=== PATIENT | female | born 1945 | race Caucasian/White ===

== ENCOUNTER 2023-01-14 17:15 | Observation (INO) | payer MEDICARE, SELFPAY ==
--- NOTE | ~2023-01-14 | US_ITS ---
EXAMINATION: US venous doppler LE DATE: 01/14/2023 22:43 INDICATION: Bilateral lower limb pain, swelling and erythema TECHNIQUE: Grayscale ultrasound images without and with compression and Doppler ultrasound images of the bilateral lower extremity veins were obtained. COMPARISON: 01/13/2018 FINDINGS: Nonocclusive, noncompressible deep venous thrombosis in the right popliteal vein. The visualized port ions of right common femoral vein, profunda (deep) femoral vein, femoral vein and greater saphenous v ein outflow are patent. The right posterior tibial and peroneal veins at the calf are not diagnostica lly evaluated due to poor visualization related to body habitus. The visualized portions of left common femoral vein, profunda femoral vein, femoral vein, popliteal v ein and greater saphenous vein outflow are patent. The left posterior tibial and peroneal veins and n ot diagnostically evaluated due to poor visualization related to body habitus. IMPRESSION: 1. Noncompressible, nonocclusive deep venous thrombosis in the right popliteal vein. 2. No evident deep venous thrombosis in the left lower limb. Reviewed, dictated and finalized at location A.
--- NOTE | ~2023-01-14 | XR_ITS ---
EXAMINATION: XR chest 2V DATE: 01/14/2023 17:30 INDICATION: Chest pain TECHNIQUE: frontal and lateral views of the chest were obtained. COMPARISON: Chest radiograph dated 01/12/2018 FINDINGS: Mild opacities at the bilateral lung bases and favor atelectasis over pulmonary edema or pneumonia. N o pleural effusion or pneumothorax. The cardiomediastinal silhouette is within normal limits for AP t echnique. Mild thoracic dextrocurvature with mild spondylosis. IMPRESSION: 1. Mild bibasilar opacities and favor atelectasis over pulmonary edema or pneumonia. Reviewed, dictated and finalized at location A. IMPRESSION: 1. Mild bibasilar opacities and favor atelectasis over pulmonary edema or pneum onia.
--- NOTE | ~2023-01-14 | NM_ITS ---
EXAMINATION: NM pulmonary perfusion DATE: 01/15/2023 13:04 INDICATION: Chest pain. Shortness of breath. TECHNIQUE: 5.2 mCi Tc-99m MAA was administered intravenously for perfusion images. Scintigraphic israel ges of the chest were obtained. COMPARISON: Chest 2 views 01/14/2023 FINDINGS: Perfusion images show a small perfusion defect in left upper lobe. IMPRESSION: 1. Pulmonary embolism absent (very low probability). Reviewed, dictated and finalized at location A.
--- NOTE | 2023-01-14 17:15 | ECG_ITS ---
Measurements Intervals [place] Rate: 62 P: 70 DE: 300 QRS: -63 QRSD: 148 T: -11 QT: 412 QTc: 420 Interpretive Statements SINUS RHYTHM WITH FIRST DEGREE AV BLOCK RIGHT BUNDLE BRANCH BLOCK LEFT ANTERIOR FASCICULAR BLOCK BASELINE ARTIFACT- I, II, III, AVR, AVL, AVF ABNORMAL ECG NO PREVIOUS ECG AVAILABLE FOR COMPARISON Electronically Signed On 01-14-2023 20:27:39 CDT by Jason Isbell D.O.
[2023-01-14 17:47] VITALS: BP 143/54; PULSE 63; RESP 20; TEMP 36.9; O2SAT 96
[2023-01-14 18:17] LABS: Basophils Absolute Auto 0.1 K/mm3 (0.0-0.1); Basophils Percent Auto 0.9 % (0.2-1.2); Eosinophils Absolute Auto 0.4 K/mm3 (0-0.3); Hematocrit 43.4 % (37.0-47.0); Hemoglobin 13.7 g/dL (12.0-15.0); Immature Granulocyte Absolute 0.03 K/mm3 (0.00-0.031); Immature Granulocyte Percent A 0.4 % (0-0.5); Lymphocytes Absolute Auto 2.02 K/mm3 (0.9-3.2); Lymphocytes Percent Auto 23.9 % (18.3-44.2); Mean Corpuscular HGB Conc 31.6 g/dl (32-36); Mean Corpuscular Hemoglobin 32.5 pg (26-34); Mean Corpuscular Volume 103.1 fl (80-100); Monocytes Absolute Auto 0.9 K/mm3 (0.1-0.6); Monocytes Percent Auto 10.5 % (2.6-8.5); Neutrophils Percent Auto 59.3 % (45.5-73.1); Platelet Count Result 183 k/mm3 (150-375); Red Blood Count 4.21 M/mm3 (4.2-5.4); Red Cell Distribution Width 13.1 % (11.5-14.5); White Blood Count 8.5 K/mm3 (4.5-10.0)
[2023-01-14 18:27] LABS: Alanine Aminotransferase 22 U/L (6-35); Albumin Level 3.8 g/dL (3.5-5.1); Alkaline Phosphatase 77 U/L (38-126); Anion Gap 7 mmol/L (8-16); Aspartate Amino Transferase 25 U/L (14-36); Bilirubin,Total 0.5 mg/dL (0.2-1.3); Blood Urea Nitrogen 21 mg/dL (7-17); Carbon Dioxide 23 mmol/L (22-30); Chloride 102 mmol/L (98-107); Estimated CRCL calculation 53 ml/min; Estimated Glomerular Filt Rate 60; Glucose 287 mg/dL (65-110); Lipase 45 U/L (23-300); Potassium 4.2 mmol/L (3.4-5.0); Sodium 132 mmol/L (137-145)
[2023-01-14 18:33] LABS: Prothrombin Time 13.2 Seconds (11.1-14.7)
[2023-01-14 18:39] LABS: Troponin I < 0.012 ng/mL (0.000-0.034)
[2023-01-14 21:22] VITALS: BP 146/81; PULSE 69; RESP 18; TEMP 36.4; O2SAT 99
[2023-01-14 21:31] LABS: Troponin I < 0.012 ng/mL (0.000-0.034)
--- NOTE | 2023-01-14 21:51 | ED.CHESTPAIN ---
HPI - Chest Pain General Chief Complaint: Chest Pain <VIRGINIA Merida Last Filed: 01/15/23 02:14> Stated Complaint: chest pain <VIRGINIA Merida Last Filed: 01/15/23 02:14> Time Seen by Provider: 01/14/23 21:32 <VIRGINIA Merida Last Filed: 01/15/23 02:14> Source: patient and old records reviewed <VIRGINIA Merida Last Filed: 01/15/23 02:14> Mode of arrival: ambulatory <VIRGINIA Merida Last Filed: 01/15/23 02:14> Limitations: no limitations <VIRGINIA Merida Last Filed: 01/15/23 02:14> History of Present Illness HPI narrative: Patient is a 77 y/o female who presents to the ED with multiple complaints. Patient is mostly wheelchair-bound. She does not typically ambulate. She reports having pain and swelling in her lower extremities worsening over the past couple of days, as well as redness in her left lower extremity. Denies any wounds. She also reports having intermittent shortness of breath and left-sided chest discomfort under her left breast and extending into her left arm/shoulder over the last several days. She has not tried anything for the pain. She has been noncompliant with her home medications as she reports that she often forgets to take her medicines. Patient lives alone. Her son does live nearby, but patient states he does not help her with her medicines. Patient does have history of DVT. She is supposed to be on Xarelto. She has not been taking this consistently for the last 1 year. Denies any recent fevers, cough, cold symptoms, nausea, vomiting. Denies history of CHF. She is not on any diuretic therapy. <VIRGINIA Merida Last Filed: 01/15/23 02:14> Related Data Allergies/Adverse Reactions: Allergies Allergy/AdvReac Type Severity Reaction Status Date / Time Iodinated Contrast Media Allergy Intermediate Rash Verified 01/15/23 08:52 <VIRGINIA Merida Last Filed: 01/15/23 02:14> Review of Systems Review of Systems: CONSTITUTIONAL: Denies fever, chills, or sweats. CARDIOVASCULAR: See HPI. RESPIRATORY: See HPI. GASTROINTESTINAL: Denies abdominal pain, nausea, vomiting, or diarrhea. GENITOURINARY: Denies dysuria or hematuria. SKIN: See HPI. MUSCULOSKELETAL: See HPI. <Juany Carl PA-C - Last Filed: 01/15/23 02:14> All systems reviewed & are unremarkable except as noted in HPI and below <Juany Carl PA-C - Last Filed: 01/15/23 02:14> [facility] Past Medical History Medical History: Medical History Essential (primary) hypertension GERD without esophagitis H/O deep venous thrombosis H/O TIA (transient ischemic attack) and stroke Hyperlipidemia Type 2 diabetes mellitus without complications <Juany Carl PA-C - Last Filed: 01/15/23 02:14> Surgical History Surgical History: Surgical History History of hysterectomy No pertinent past surgical history S/P cholecystectomy <Juany Carl PA-C - Last Filed: 01/15/23 02:14> Family History Family History: Family History Mother Family history of migraine headaches Family history of arthritis Family history of Alzheimer's disease Father Family history of cataracts Family history of diabetes mellitus in first degree relative Family history of congestive heart failure Family history of heart disease in male family member before age 55 Family history of hearing loss Sibling Family history of diabetes mellitus in first degree relative Other Diabetes mellitus <Juany Carl PA-C - Last Filed: 01/15/23 02:14> Social History Social History: Social History (Updated 01/15/23 @ 17:12 by REANNA Roca) Social History: Patient currently lives by herself. Her son Dmitry vallejo
[2023-01-14 22:05] LABS: NT Pro B Type Natriuretic Pept 166 pg/mL (19.9-100)
[2023-01-15] VITALS (8 sets, daily range): BP systolic 115–134; BP diastolic 65–95; PULSE 62–88; RESP 14–20; TEMP 36.6–36.8; O2SAT 99–100; BMI 44.2
[2023-01-15 00:15] LABS: Troponin I < 0.012 ng/mL (0.000-0.034)
[2023-01-15] MEDS: ASPIRIN 81 MG CHEWABLE TABLET 324 MG PO (00:24)
[2023-01-15] MEDS: ceFAZolin 1 GM/NS 50 ML 1 GM/50 ML BAG IVPB ×3 (03:01→17:22)
[2023-01-15] MEDS: ENOXAPARIN 100 MG/ML SYRINGE SUB-Q (03:01)
[2023-01-15 03:58] LABS: Hemoglobin A1C 7.8 % (<5.7)
[2023-01-15 08:36] LABS: Glucose Point of Care 238 mg/dl (65-105)
--- NOTE | 2023-01-15 09:00 | PM.IMHP ---
H&P: HPI History of Present Illness Date/Time: 01/15/23 0900 Chief Complaint: Chest pain, shortness of breath, bilateral leg swelling Narrative: Patient is 77-year-old female with a past medical history of CHF, DVT PE, rheumatoid arthritis, hypertension hyperlipidemia who presented to the ED with complaints of chest pain, shortness a breath, extremity swelling and redness. Patient stated that it all started about a week ago. She knows that legs are both red and swollen and she was unable to put any shoes on. She also stated that she has been having some pain in her right knee. Yesterday she stated that she started feeling some shortness of breath was unable take a deep breath. She stated that she was starting to have some chest pain of left breast when she would take a deep breath. She denies any current sweats fevers or chills however stated that she does get the chills quite frequently. She stated that she has subsided whether could be over 100? and she has other shivering. She also stated that she has a sore on her buttocks however patient does sound to be wheelchair bound and can transfer independently as she lives on her own. She also stated that she has been urinating quite frequently and stated that she is incontinent most times. She stated that when she stands up adjust falls out of her. She does have an appointment Dr. Diehl who is post to do a bladder sling from what it sounds like. She stated that she does not drink as much because she does not want a PE any more. She also stated that she has been able to walk with a walker however since she has not been get her shots she has not been able to walk. She did state that she can get herself from her chair to a wheelchair to the bathroom. She does state that she feels the urge to have to go to the bathroom however when she stands and just saw comes out all over the floor. She stop taking her Xarelto and her metformin about a year ago. She do not check her glucose. She also stated she was was get cataracts done today however she had to cancel unchanged her appointment. She has also noticed that she has been getting some lightheadedness and dizziness. She does admit to eating a great fruit every day and she states that she does constantly for it to take her medicines even though there sitting on the counter waiting for her. Venous Dopplers did show a DVT under the right popliteal Vein. V/Q scan did show a very low probability of pulmonary embolism. Chest x-ray was performed showed bibasilar opacities and atelectasis pulmonary edema versus pneumonia. Patient does have 2 to 3+ pitting edema bilateral lower extremities. A1c was 7.8 and BNP is 166. Troponins have been negative x2. All the lab seemed to be stable at this time. Patient is being admitted to the hospitalist service under observation. Review of Systems Review of Systems: All systems reviewed & are unremarkable except as noted in HPI and below [facility] Past Medical History Medical History Essential (primary) hypertension GERD without esophagitis H/O deep venous thrombosis H/O TIA (transient ischemic attack) and stroke Hyperlipidemia Type 2 diabetes mellitus without complications Surgical History Surgical History History of hysterectomy No pertinent past surgical history S/P cholecystectomy Family History Family History Mother Family history of migraine headaches Family history of arthritis Family history of Alzheimer's disease Father Family history of cataracts Family history of diabetes mellitus in first degree relative Family history of congestive heart failure Family history of heart disease in male family member before age 55 Family history of hearing loss Sibling Family history of diabetes mellitus in first degree relative Othe
[2023-01-15 12:13] LABS: Glucose Point of Care 270 mg/dl (65-105)
[2023-01-15] MEDS: ENOXAPARIN 120 MG/0.8 ML SYRINGE 110 MG SUB-Q (16:50)
[2023-01-15 17:11] LABS: Glucose Point of Care 258 mg/dl (65-105)
[2023-01-15] MEDS: FUROSEMIDE INJ 40 MG/4 ML VIAL IV PUSH (18:13)
[2023-01-15 19:54] LABS: Glucose Point of Care 288 mg/dl (65-105)
[2023-01-16] VITALS (9 sets, daily range): BP systolic 100–131; BP diastolic 49–60; PULSE 63–82; RESP 16–20; TEMP 36–36.7; O2SAT 95–99
--- NOTE | 2023-01-16 | ECHO_ITS ---
Patient Info Name: Dianna Garner Age: 77 years : 1945 Gender: Female Ht: 62 in Wt: 241 lbs BSA: 2.25 m2 HR: 70 bpm BP: 131 / 54 mmHg Technical Quality: Fair Exam Date: 01/16/2023 11:14 AM Exam Location: [facility] Pulmonary Exam Room: 243 Patient Status: Inpatient Admit Date: 01/15/2023 Staff Ordering Physician: Raymundo Panda Hog Cutter: Milana Rubio RDCS Attending Provider: Johanna Jensen DO Referring Physician: Farzad VALENZUELA; Exam Type: CA echo doppler color flow Study Info Indications - bilateral PORTIA Complete two-dimensional, color flow and Doppler transthoracic echocardiogram is performed. Summary 1. Complete two-dimensional, color flow and Doppler transthoracic echocardiogram is performed. 2. Left ventricular chamber dimension is normal. 3. Left ventricular systolic function is normal, estimated at 65-70%. 4. The left ventricular diastolic function is grade I diastolic dysfunction. 5. E/e' 6 is not elevated. 6. There is trace mitral valve regurgitation. 7. There is mild tricuspid valve regurgitation. 8. No pulmonary hypertension, estimated pulmonary arterial systolic pressure is 32 mmHg. 9. There is trace pulmonic regurgitation. Left Ventricle E/e' 6 is not elevated. Left ventricular chamber dimension is normal. Left ventricular systolic function is normal, estimated at 65-70%. The left ventricular diastolic function is grade I diastolic dysfunction. Right Ventricle Right ventricular chamber dimension is normal. Right ventricular systolic function is normal. Left Atria Left atrial chamber dimension is normal. Right Atria Right atrial chamber dimension is normal. Aortic Valve The aortic valve is trileaflet. There is no aortic valve stenosis. There is no aortic valve regurgitation. Pulmonic Valve There is trace pulmonic regurgitation. Mitral Valve There is no mitral valve stenosis. There is trace mitral valve regurgitation. Tricuspid Valve There is mild tricuspid valve regurgitation. No pulmonary hypertension, estimated pulmonary arterial systolic pressure is 32 mmHg. Pericardium/Pleural There is no pericardial effusion. Inferior Vena Cava Normal inferior vena cava with >50% collapse upon inspiration consistent with normal right atrial pressure, 5 mmHg. Aorta The aortic root size at the sinus of Valsalva is normal. Left Ventricular Outflow Tract Name Value Normal LVOT 2D LVOT Diameter 2.1 cm LVOT Doppler LVOT Peak Gradient 4 mmHg LVOT Mean Gradient 2 mmHg LVOT VTI 21 cm LVOT VTI/AV VTI Ratio 0.8 LVOT Stroke Volume 71 ml LVOT CO 14.6 l/min LVOT CI 6.5 l/min/m2 Pulmonic Valve Name Value Normal RVOT Doppler RVOT Peak Gradient 5 mmHg PV Dopple
[2023-01-16] MEDS: ENOXAPARIN 120 MG/0.8 ML SYRINGE 110 MG SUB-Q ×2 (02:18→21:03)
[2023-01-16] MEDS: ceFAZolin 1 GM/NS 50 ML 1 GM/50 ML BAG IVPB ×3 (02:19→17:04)
[2023-01-16 05:26] LABS: Basophils Absolute Auto 0.1 K/mm3 (0.0-0.1); Basophils Percent Auto 1.1 % (0.2-1.2); Eosinophils Absolute Auto 0.5 K/mm3 (0-0.3); Eosinophils Percent Auto 6.6 % (0-4.4); Hematocrit 37.2 % (37.0-47.0); Hemoglobin 12.3 g/dL (12.0-15.0); Immature Granulocyte Absolute 0.02 K/mm3 (0.00-0.031); Immature Granulocyte Percent A 0.2 % (0-0.5); Lymphocytes Absolute Auto 2.71 K/mm3 (0.9-3.2); Lymphocytes Percent Auto 33.6 % (18.3-44.2); Mean Corpuscular HGB Conc 33.1 g/dl (32-36); Mean Corpuscular Hemoglobin 32.4 pg (26-34); Mean Corpuscular Volume 97.9 fl (80-100); Mean Platelet Volume 12.4 fl (7.4-10.4); Monocytes Absolute Auto 0.8 K/mm3 (0.1-0.6); Monocytes Percent Auto 9.7 % (2.6-8.5); Neutrophils Absolute Auto 3.9 K/mm3 (1.3-6.7); Neutrophils Percent Auto 48.8 % (45.5-73.1); Platelet Count Result 187 k/mm3 (150-375); White Blood Count 8.1 K/mm3 (4.5-10.0)
[2023-01-16 05:40] LABS: Alanine Aminotransferase 15 U/L (6-35); Albumin Level 3.2 g/dL (3.5-5.1); Alkaline Phosphatase 57 U/L (38-126); Anion Gap 3 mmol/L (8-16); Aspartate Amino Transferase 24 U/L (14-36); Bilirubin,Total 0.5 mg/dL (0.2-1.3); Blood Urea Nitrogen 21 mg/dL (7-17); Calcium 8.2 mg/dL (8.4-10.2); Carbon Dioxide 29 mmol/L (22-30); Chloride 101 mmol/L (98-107); Estimated CRCL calculation 47 ml/min; Estimated Glomerular Filt Rate 53; Glucose 240 mg/dL (65-110); Magnesium 1.7 mg/dL (1.6-2.3); Potassium 3.7 mmol/L (3.4-5.0); Sodium 133 mmol/L (137-145)
[2023-01-16 07:48] LABS: Cholesterol 132 mg/dL (0-200); HDL Direct 32 mg/dL; Triglycerides 95 mg/dL (<150)
[2023-01-16 07:59] LABS: LDL Cholesterol Direct 82 mg/dL
[2023-01-16 08:14] LABS: Glucose Point of Care 268 mg/dl (65-105)
[2023-01-16] MEDS: RIVAROXABAN 15 MG TABLET PO (08:19)
[2023-01-16] MEDS: lisinopriL 10 MG TABLET PO (08:19)
[2023-01-16] MEDS: INSULIN ASPART (*BKC) 100 UNITS/ML SUB-Q ×3 (08:21→17:03)
[2023-01-16] MEDS: MAGNESIUM SULF 2 GM/WATER 50ML 2 GM/50 ML BAG IVPB (08:28)
--- NOTE | 2023-01-16 10:15 | PM.IMPN ---
Progress Note: A&P Assessment and Plan (1) Essential (primary) hypertension: Code(s): I10 - Essential (primary) hypertension Status: Acute Assessment and Plan: blood pressure stable 131/54 restart patient's lisinopril at 10 mg daily trend blood pressure adjust therapy as indicated (2) Lower extremity edema: Code(s): R60.0 - Localized edema Status: Acute Assessment and Plan: 3-4+ edema noted bilaterally Echo EF of 65-70% with grade 1 diastolic dysfunction Chest xray noted some pulmonary edema Could be related to CHF Give one dose of IV lasix 01/15/23, 01/16/23 Daily weights Seems to be getting better (3) Hyperlipidemia: Qualifiers: Hyperlipidemia type: mixed hyperlipidemia Qualified Code(s): E78.2 - Mixed hyperlipidemia Code(s): E78.5 - Hyperlipidemia, unspecified Status: Acute Assessment and Plan: lipid panel Cholesterol 132, triglycerides 95, LDL 82, HDL 32 Start atorvastatin 40mg PO Daily (4) Type 2 diabetes mellitus without complications: Qualifiers: Diabetes mellitus correction insulin use: without correction use Qualified Code(s): E11.9 - Type 2 diabetes mellitus without complications Code(s): E11.9 - Type 2 diabetes mellitus without complications Status: Acute Assessment and Plan: current glucose 240 A1c 7.2 Accu-Cheks AC and HS insulin sliding scale trend glucose adjust therapy as indicated (5) Deep vein thrombosis (DVT) of popliteal vein of right lower extremity: Qualifiers: Chronicity: unspecified Qualified Code(s): I82.431 - Acute embolism and thrombosis of right popliteal vein Code(s): I82.431 - Acute embolism and thrombosis of right popliteal vein Status: Acute Assessment and Plan: venous Doppler bilateral lower extremity shows DVT at right popliteal Lovenox full dose b.i.d, changed warfarin Xarelto is $400 a month She cannot afford a DOAC, will have to start her on warfarin education of importance of taking her medications given (6) Chest pain: Qualifiers: Chest pain type: unspecified Qualified Code(s): R07.9 - Chest pain, unspecified Code(s): R07.9 - Chest pain, unspecified Status: Acute Assessment and Plan: troponins negative x2 no oxygen need or shortness of breath chest x-ray is stable EKG with no ST elevation V/Q scan negative for PE seems to be mostly in line with CHF (7) Cellulitis: Qualifiers: Laterality: unspecified laterality Site of cellulitis: extremity Site of cellulitis of extremity: lower extremity Qualified Code(s): L03.119 - Cellulitis of unspecified part of limb Code(s): L03.90 - Cellulitis, unspecified Status: Acute Assessment and Plan: bilateral lower extremity redness and swelling and warmth continue cefazolin for now trend symptoms adjust therapy as indicated Time Spent With Patient Time: 48 minutes Time with patient: Greater than 35 minutes Subjective Date/time seen: 01/16/231044 Interval history: 01/16/231044 patient stated that she is doing better today. She stated that she has been nauseous this morning her however that did go away after she has some crackers. She did state that she was able to walk to the bathroom with a walker and help today. She does feel like her legs in her feet are doing better with the Lasix. She does still have some pain and some warmth with the redness. She did state that she was having problems a bowel movement however she stated that she does better if she just goes on the toilet. Currently she denies any chest pain. Shortness of breath, nausea, vomiting, diarrhea constipation. 01/15/23? 0900 ? Patient is 77-year-old female with a past medical history of CHF, DVT PE, rheumatoid
--- NOTE | 2023-01-16 10:15 | P.PNIM_ITS ---
Progress Note: A&P Assessment and Plan (1) Essential (primary) hypertension: Code(s): I10 - Essential (primary) hypertension Status: Acute Assessment and Plan: * blood pressure stable 131/54 * restart patient's lisinopril at 10 mg daily * trend blood pressure * adjust therapy as indicated (2) Lower extremity edema: Code(s): R60.0 - Localized edema Status: Acute Assessment and Plan: * 3-4+ edema noted bilaterally * Echo EF of 65-70% with grade 1 diastolic dysfunction * Chest xray noted some pulmonary edema * Could be related to CHF * Give one dose of IV lasix 01/15/23, 01/16/23 * Daily weights * Seems to be getting better (3) Hyperlipidemia: Qualifiers: Hyperlipidemia type: mixed hyperlipidemia Qualified Code(s): E78.2 - Mixed hyperlipidemia Code(s): E78.5 - Hyperlipidemia, unspecified Status: Acute Assessment and Plan: * lipid panel Cholesterol 132, triglycerides 95, LDL 82, HDL 32 * Start atorvastatin 40mg PO Daily (4) Type 2 diabetes mellitus without complications: Qualifiers: Diabetes mellitus long-term insulin use: without director long term care use Qualifi ed Code(s): E11.9 - Type 2 diabetes mellitus without complications Code(s): E11.9 - Type 2 diabetes mellitus without complications Status: Acute Assessment and Plan: * current glucose 240 * A1c 7.2 * Accu-Cheks AC and HS * insulin sliding scale * trend glucose * adjust therapy as indicated (5) Deep vein thrombosis (DVT) of popliteal vein of right lower extremity: Qualifiers: Chronicity: unspecified Qualified Code(s): I82.431 - Acute embolism and thrombosis of right popliteal vein Code(s): I82.431 - Acute embolism and thrombosis of right popliteal vein Status: Acute Assessment and Plan: * venous Doppler bilateral lower extremity shows DVT at right popliteal * Lovenox full dose b.i.d, changed warfarin * Xarelto is $400 a month * She cannot afford a DOAC, will have to start her on warfarin * education of importance of taking her medications given (6) Chest pain: Qualifiers: Chest pain type: unspecified Qualified Code(s): R07.9 - Chest pain, unspecified Code(s): R07.9 - Chest pain, unspecified Status: Acute Assessment and Plan: * troponins negative x2 * no oxygen need or shortness of breath * chest x-ray is stable * EKG with no ST elevation * V/Q scan negative for PE * seems to be mostly in line with CHF (7) Cellulitis: Qualifiers: Laterality: unspecified laterality Site of cellulitis: extremity Site of cellulitis of extremity: lower extremity Qualified Code(s): L03.119 - Cellulitis of unspecified part of limb Code(s): L03.90 - Cellulitis, unspecified Status: Acute Assessment and Plan: * bilateral lower extremity redness and swelling and warmth * continue cefazolin for now * trend symptoms * adjust therapy as indicated Time Spent With Patient Time: 48 minutes Time with patient: Greater than 35 minutes Subjective Date/time seen: 01/16/231044 Interval history: 01/16/231044 patient stated that she is doing better today. She stated that she has been nauseous this morning her however that
--- NOTE | 2023-01-16 10:43 | PCOTNOTE ---
Therapy session is not attempted at this time due to pt currently waiting for a LE Doppler test. Will attempt therapy at a later time when appropriate.
[2023-01-16 11:55] LABS: Glucose Point of Care 275 mg/dl (65-105)
[2023-01-16 12:38] LABS: Appearance Urine Clear (Clear); Bacteria Urine None Seen /hpf; Bilirubin Urine Negative (Negative); Blood Urine Negative (Negative); Color Urine Yellow (Yellow); Glucose Urine UA 3+ mg/dL (Negative); Ketones Urine Trace mg/dL (Negative); Leukocyte Esterase Ur Trace LEU/UL (Negative); Nitrate Urine Negative (Negative); Non Pathogenic Casts 0-2; Protein Urine Negative (Negative); RBC Urine 0-2 /hpf (0-2); Specific Grav Ur 1.015 (1.001-1.035); Squamous Epithelial Cell Urine Occasional /hpf (Few); Urobilinogen Urine 0.2 mg/dL (<2.0); WBC Urine 0-5 /hpf; pH Urine 5.5 (5.0-9.0)
[2023-01-16 12:43] LABS: Add Urine Microscopic? YES
--- NOTE | 2023-01-16 14:44 | PC.NURSE ---
Per Vic Panda [employer] DEPUTY DIRECTOR, Patient okay to use purewick when on IV lasix.
[2023-01-16] MEDS: FUROSEMIDE INJ 40 MG/4 ML VIAL IV PUSH (15:02)
[2023-01-16 15:39] LABS: INR 1.3; Prothrombin Time 16.9 Seconds (11.1-14.7)
[2023-01-16 15:40] LABS: Partial Thromboplastin Time 39.1 SECONDS (22.3-36.8)
[2023-01-16 16:45] LABS: Glucose Point of Care 284 mg/dl (65-105)
[2023-01-16] MEDS: WARFARIN (*PBKC) 10 MG TABLET PO (17:04)
[2023-01-16 20:12] LABS: Glucose Point of Care 321 mg/dl (65-105)
[2023-01-17] VITALS: PULSE 71
[2023-01-17] MEDS: ceFAZolin 1 GM/NS 50 ML 1 GM/50 ML BAG IVPB ×2 (02:38→10:20)
[2023-01-17 04:00] VITALS: PULSE 64
[2023-01-17 05:35] LABS: Basophils Absolute Auto 0.1 K/mm3 (0.0-0.1); Eosinophils Absolute Auto 0.6 K/mm3 (0-0.3); Eosinophils Percent Auto 6.7 % (0-4.4); Hematocrit 37.8 % (37.0-47.0); Hemoglobin 12.3 g/dL (12.0-15.0); Immature Granulocyte Absolute 0.03 K/mm3 (0.00-0.031); Immature Granulocyte Percent A 0.3 % (0-0.5); Lymphocytes Absolute Auto 2.92 K/mm3 (0.9-3.2); Lymphocytes Percent Auto 31.7 % (18.3-44.2); Mean Corpuscular HGB Conc 32.5 g/dl (32-36); Mean Corpuscular Hemoglobin 32.4 pg (26-34); Mean Corpuscular Volume 99.5 fl (80-100); Mean Platelet Volume 12.1 fl (7.4-10.4); Monocytes Absolute Auto 0.8 K/mm3 (0.1-0.6); Monocytes Percent Auto 8.6 % (2.6-8.5); Neutrophils Absolute Auto 4.8 K/mm3 (1.3-6.7); Neutrophils Percent Auto 51.7 % (45.5-73.1); Platelet Count Result 195 k/mm3 (150-375); Red Cell Distribution Width 13.2 % (11.5-14.5); White Blood Count 9.2 K/mm3 (4.5-10.0)
[2023-01-17 05:45] LABS: INR 1.4; Prothrombin Time 17.8 Seconds (11.1-14.7)
[2023-01-17 05:46] LABS: Partial Thromboplastin Time 45.2 SECONDS (22.3-36.8)
[2023-01-17 05:50] LABS: Alanine Aminotransferase 14 U/L (6-35); Albumin Level 3.1 g/dL (3.5-5.1); Alkaline Phosphatase 65 U/L (38-126); Anion Gap 2 mmol/L (8-16); Aspartate Amino Transferase 22 U/L (14-36); Bilirubin,Total 0.4 mg/dL (0.2-1.3); Blood Urea Nitrogen 25 mg/dL (7-17); Calcium 8.1 mg/dL (8.4-10.2); Carbon Dioxide 32 mmol/L (22-30); Chloride 101 mmol/L (98-107); Estimated CRCL calculation 40 ml/min; Estimated Glomerular Filt Rate 43; Glucose 234 mg/dL (65-110); Magnesium 2.1 mg/dL (1.6-2.3); Potassium 3.6 mmol/L (3.4-5.0); Sodium 135 mmol/L (137-145)
[2023-01-17 06:15] VITALS: BP 141/52; PULSE 56; RESP 16; TEMP 36.7; O2SAT 100
[2023-01-17 08:00] VITALS: PULSE 58
[2023-01-17 08:30] LABS: Glucose Point of Care 261 mg/dl (65-105)
[2023-01-17] MEDS: ENOXAPARIN 120 MG/0.8 ML SYRINGE 110 MG SUB-Q (08:42)
[2023-01-17] MEDS: lisinopriL 10 MG TABLET PO (08:42)
[2023-01-17] MEDS: INSULIN ASPART (*BKC) 100 UNITS/ML SUB-Q ×3 (08:59→12:11)
[2023-01-17] MEDS: ONDANSETRON INJ 4 MG/2 ML VIAL IV PUSH (10:19)
--- NOTE | 2023-01-17 10:30 | PM.DS ---
DS: Admitting Diagnosis Discharge Date 01/17/23 1030 Admitting Diagnosis Acute CHF exacerbation, lower extremity cellulitis, acute DVT DS: Discharge Diagnosis Discharge Diagnosis (1) Essential (primary) hypertension: Code(s): I10 - Essential (primary) hypertension Status: Acute Assessment and Plan: blood pressure stable 122/73 Stop lisinopril at 10 mg daily, as she is slightly orthostatic which is most likely causing the nausea trend blood pressure adjust therapy as indicated (2) Hyperlipidemia: Qualifiers: Hyperlipidemia type: mixed hyperlipidemia Qualified Code(s): E78.2 - Mixed hyperlipidemia Code(s): E78.5 - Hyperlipidemia, unspecified Status: Acute Assessment and Plan: lipid panel Cholesterol 132, triglycerides 95, LDL 82, HDL 32 Start atorvastatin 40mg PO Daily (3) Type 2 diabetes mellitus without complications: Qualifiers: Diabetes mellitus long-term insulin use: without intermodal dispatcher use Qualified Code(s): E11.9 - Type 2 diabetes mellitus without complications Code(s): E11.9 - Type 2 diabetes mellitus without complications Status: Acute Assessment and Plan: current glucose 234 A1c 7.2 Accu-Cheks AC and HS insulin sliding scale, adjusted Insulin roll is 32 units for 24 hours Start lantus at 16 units Aspart 5 units at meal time trend glucose adjust therapy as indicated Discharge with Jardiance 25mg PO daily (4) Deep vein thrombosis (DVT) of popliteal vein of right lower extremity: Qualifiers: Chronicity: unspecified Qualified Code(s): I82.431 - Acute embolism and thrombosis of right popliteal vein Code(s): I82.431 - Acute embolism and thrombosis of right popliteal vein Status: Acute Assessment and Plan: venous Doppler bilateral lower extremity shows DVT at right popliteal Lovenox full dose b.i.d, changed warfarin Xarelto is $400 a month She cannot afford a DOAC, will have to start her on warfarin education of importance of taking her medications given INR today is 1.4, repeat 10mg dose again tonight (5) Chest pain: Qualifiers: Chest pain type: unspecified Qualified Code(s): R07.9 - Chest pain, unspecified Code(s): R07.9 - Chest pain, unspecified Status: Acute Assessment and Plan: troponins negative x2 no oxygen need or shortness of breath chest x-ray is stable EKG with no ST elevation V/Q scan negative for PE seems to be mostly in line with CHF (6) Cellulitis: Qualifiers: Laterality: unspecified laterality Site of cellulitis: extremity Site of cellulitis of extremity: lower extremity Qualified Code(s): L03.119 - Cellulitis of unspecified part of limb Code(s): L03.90 - Cellulitis, unspecified Status: Acute Assessment and Plan: bilateral lower extremity redness and swelling and warmth DC cefazolin, change to PO Keflex for a total of total of 5 days trend symptoms adjust therapy as indicated (7) Congestive heart failure: Qualifiers: Heart failure chronicity: acute Heart failure type: diastolic Qualified Code(s): I50.31 - Acute diastolic (congestive) heart failure Code(s): I50.9 - Heart failure, unspecified Status: Acute Assessment and Plan: Acute exacerbation of diastolic heart failure 2+ edema noted bilaterally Echo EF of 65-70% with grade 1 diastolic dysfunction Chest xray noted some pulmonary edema Give one dose of IV lasix 01/15/23, 01/16/23 Start patient on 20mg PO daily on discharge Daily weights Seems to be getting better (8) TATUM (acute kidney injury): Code(s): N17.9 - Acute kidney failure, unspecified Status: Acute Assessment and Plan: Cr is up to 1.2 Unknown baseline, was admitted with creatinine o
--- NOTE | 2023-01-17 10:30 | P.PNIM_ITS ---
Progress Note: A&P Assessment and Plan (1) Essential (primary) hypertension: Code(s): I10 - Essential (primary) hypertension Status: Acute Assessment and Plan: * blood pressure stable 122/73 * Stop lisinopril at 10 mg daily, as she is slightly orthostatic which is most likely causing the nausea * trend blood pressure * adjust therapy as indicated (2) Hyperlipidemia: Qualifiers: Hyperlipidemia type: mixed hyperlipidemia Qualified Code(s): E78.2 - Mixed hyperlipidemia Code(s): E78.5 - Hyperlipidemia, unspecified Status: Acute Assessment and Plan: * lipid panel Cholesterol 132, triglycerides 95, LDL 82, HDL 32 * Start atorvastatin 40mg PO Daily (3) Type 2 diabetes mellitus without complications: 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: without long-term use Qualified Code(s): E11.9 - Type 2 diabetes mellitus without complications Code(s): E11.9 - Type 2 diabetes mellitus without complications Status: Acute Assessment and Plan: * current glucose 234 * A1c 7.2 * Accu-Cheks AC and HS * insulin sliding scale, adjusted * Insulin roll is 32 units for 24 hours * Start lantus at 16 units * Aspart 5 units at meal time * trend glucose * adjust therapy as indicated * Discharge with Jardiance 25mg PO daily (4) Deep vein thrombosis (DVT) of popliteal vein of right lower extremity: Qualifiers: Chronicity: unspecified Qualified Code(s): I82.431 - Acute embolism and thrombosis of right popliteal vein Code(s): I82.431 - Acute embolism and thrombosis of right popliteal vein Status: Acute Assessment and Plan: * venous Doppler bilateral lower extremity shows DVT at right popliteal * Lovenox full dose b.i.d, changed warfarin * Xarelto is $400 a month * She cannot afford a DOAC, will have to start her on warfarin * education of importance of taking her medications given * INR today is 1.4, repeat 10mg dose again tonight (5) Chest pain: Qualifiers: Chest pain type: unspecified Qualified Code(s): R07.9 - Chest pain, unspecified Code(s): R07.9 - Chest pain, unspecified Status: Acute Assessment and Plan: * troponins negative x2 * no oxygen need or shortness of breath * chest x-ray is stable * EKG with no ST elevation * V/Q scan negative for PE * seems to be mostly in line with CHF (6) Cellulitis: Qualifiers: Laterality: unspecified laterality Site of cellulitis: extremity Site of cellulitis of extremity: lower extremity Qualified Code(s): L03.119 - Cellulitis of unspecified part of limb Code(s): L03.90 - Cellulitis, unspecified Status: Acute Assessment and Plan: * bilateral lower extremity redness and swelling and warmth * DC cefazolin, change to PO Keflex for a total of total of 5 days * trend symptoms * adjust therapy as indicated (7) Congestive heart failure: Qualifiers: Heart failure type: diastolic Heart failure chronicity: acute Qualified Code(s): I50.31 - Acute diastolic (congestive) heart failure Code(s): I50.9 - Heart failure, unspecified Status: Acute Assessment and Plan: * Acute exacerbation of diastolic heart failure * 2+ edema noted bilaterally * Echo EF of 65-70% with grade 1 diastolic dysfunction
[2023-01-17 11:30] VITALS: BP 110/82; BP 122/73
[2023-01-17 12:08] LABS: Glucose Point of Care 225 mg/dl (65-105)
[2023-01-17] MEDS: INSULIN GLARGINE (*BKC) 100 UNITS/ML 16 UNITS SUB-Q (12:13)
[2023-01-17 13:37] VITALS: BP 98/44; PULSE 62; RESP 16; TEMP 36.3; O2SAT 97
[2023-01-17 16:45] LABS: Glucose Point of Care 122 mg/dl (65-105)
[2023-01-17] MEDS: WARFARIN (*PBKC) 5 MG TABLET PO (17:18)
[2023-01-17] MEDS: CEPHALEXIN 500 MG CAPSULE PO (17:18)
== END 2023-01-17 17:45 ==
LOC: ANHED 01-15 01:25 → ANH2MED 01-16 09:06
PROVIDERS: Emergency Medicine; Nurse Practitioner; Admitting Provider Internal Medicine; Emergency Provider Physician Assistant; Visit Provider Internal Medicine
DX: I11.0 Hypertensive heart disease with heart failure (principal); I50.9 Heart failure, unspecified; E78.5 Hyperlipidemia, unspecified; E11.9 Type 2 diabetes mellitus without complications; I82.431 Acute embolism and thrombosis of right popliteal vein; R07.9 Chest pain, unspecified; L03.119 Cellulitis of unspecified part of limb; N17.9 Acute kidney failure, unspecified; R06.00 Dyspnea, unspecified; R91.8 Other nonspecific abnormal finding of lung field; Z74.09 Other reduced mobility; Z99.3 Dependence on wheelchair; M06.9 Rheumatoid arthritis, unspecified; R42 Dizziness and giddiness; Z91.148 Patient's other noncompliance with medication regimen for other reason; I07.1 Rheumatic tricuspid insufficiency; R94.31 Abnormal electrocardiogram [ECG] [EKG]; E66.01 Morbid (severe) obesity due to excess calories; Z68.41 Body mass index [BMI] 40.0-44.9, adult; K21.9 Gastro-esophageal reflux disease without esophagitis; Z86.73 Personal history of transient ischemic attack (TIA), and cerebral infarction without residual deficits; Z66 Do not resuscitate; Z86.718 Personal history of other venous thrombosis and embolism; Z86.711 Personal history of pulmonary embolism; Z87.891 Personal history of nicotine dependence; Z79.01 Long term (current) use of anticoagulants; Z79.52 Long term (current) use of systemic steroids; Z79.899 Other long term (current) drug therapy; Z83.3 Family history of diabetes mellitus
CPT/HCPCS: 36415; 71046; 78580; 80053; 80061; 81001; 82948; 83036; 83690; 83735; 83880; 84484; 85025; 85610; 85730; 93005; 93306; 93970; 96365; 96372; 96375; 96376; 97110; 97161; 97165; 97530; 97535; 99285; A9270; A9540; G0378; J0690; J1650; J1815; J1940; J2405; J3475

== ENCOUNTER 2023-02-01 12:14 | Outpatient (CLI) | payer MEDICARE, SELFPAY ==
[2023-02-01 12:33] LABS: Basophils Absolute Auto 0.06 K/mm3 (0.00-0.10); Basophils Percent Auto 0.5 % (0.0-1.0); Eosinophils Absolute Auto 0.53 K/mm3 (0.02-0.50); Eosinophils Percent Auto 4.5 % (1.0-6.0); Hematocrit 40.1 % (35.0-42.0); Hemoglobin 13.1 g/dL (11.7-13.8); Immature Granulocyte Absolute 0.05 K/mm3 (0.00-0.00); Immature Granulocyte Percent A 0.4 % (0.0-0.0); Lymphocytes Absolute Auto 2.65 K/mm3 (1.10-4.50); Lymphocytes Percent Auto 22.4 % (18.0-42.0); Mean Corpuscular HGB Conc 32.7 g/dL (32.0-36.0); Mean Corpuscular Hemoglobin 32.7 pg (27.0-31.0); Mean Platelet Volume 12.1 fl (9.2-11.8); Monocytes Absolute Auto 0.73 K/mm3 (0.10-0.90); Monocytes Percent Auto 6.2 % (2.0-11.0); Neutrophils Absolute Auto 7.8 K/mm3 (1.7-7.2); Platelet Count Result 227 K/mm3 (150-420); Red Blood Count 4.01 M/mm3 (4.20-5.40); White Blood Count 11.8 K/mm3 (4.8-10.8)
[2023-02-01 12:46] LABS: INR 1.4; Prothrombin Time 14.5 Seconds (9.50-12.10)
[2023-02-01 13:09] LABS: Alanine Aminotransferase 24 U/L (14-59); Albumin Level 3.4 g/dL (3.4-5.0); Alkaline Phosphatase 69 U/L (46-116); Anion Gap 8 mmol/L (8-16); Aspartate Amino Transferase 16 U/L (15-37); Bilirubin,Total 0.4 mg/dL (0.00-1.00); Blood Urea Nitrogen 35 mg/dL (7-18); Calcium 9.3 mg/dL (8.5-10.1); Carbon Dioxide 26 mmol/L (21-32); Chloride 104 mmol/L (98-108); Estimated Glomerular Filt Rate 49; Glucose 210 mg/dL (70-99); Osmolality Calculated 300 mOsm/kg (285-295); Potassium 4.7 mmol/L (3.5-5.1); Sodium 138 mmol/L (136-145); Total Protein 6.7 g/dL (6.4-8.2)
== END 2023-02-01 12:15 | disposition home or self-care (01) ==
LOC: CHSLAB 12:17
PROVIDERS: PCP Family Medicine; Visit Provider Family Medicine
DX: E11.9 Type 2 diabetes mellitus without complications (principal); Z79.01 Long term (current) use of anticoagulants
CPT/HCPCS: 36415; 80053; 85025; 85610

== ENCOUNTER 2023-05-30 12:16 | Outpatient (RCR) | payer MEDICARE, SELFPAY ==
[2023-03-21 12:37] LABS: INR 4.6; Prothrombin Time 45.5 Seconds (9.50-12.10)
[2023-04-19 11:17] LABS: INR 1.1; Prothrombin Time 11.5 Seconds (9.50-12.10)
[2023-05-30 12:56] LABS: INR 3.6; Prothrombin Time 35.6 Seconds (9.50-12.10)
== END 2023-06-19 23:59 | disposition home or self-care (01) ==
LOC: CHSLAB 12:16
PROVIDERS: PCP Family Medicine; Visit Provider Family Medicine
DX: Z51.81 Encounter for therapeutic drug level monitoring (principal); Z79.01 Long term (current) use of anticoagulants
CPT/HCPCS: 36415; 85610

== ENCOUNTER 2023-06-27 11:37 | Outpatient (CLI) | payer MEDICARE, SELFPAY | END 2023-06-27 11:38 | disposition home or self-care (01) | PROVIDERS: PCP Family Medicine; Visit Provider Family Medicine | DX: Z51.81 Encounter for therapeutic drug level monitoring (principal) | CPT/HCPCS: 36415; 85610 ==

== ENCOUNTER 2023-12-16 08:58 | Outpatient (CLI) | payer MEDICARE, SELFPAY ==
[2023-12-16 09:17] LABS: Basophils Absolute Auto 0.05 K/mm3 (0.00-0.10); Basophils Percent Auto 0.7 % (0.0-1.0); Eosinophils Percent Auto 6.8 % (1.0-6.0); Hematocrit 37.5 % (35.0-42.0); Immature Granulocyte Absolute 0.03 K/mm3 (0.00-0.00); Immature Granulocyte Percent A 0.4 % (0.0-0.0); Lymphocytes Absolute Auto 2.07 K/mm3 (1.10-4.50); Lymphocytes Percent Auto 28.4 % (18.0-42.0); Mean Corpuscular Hemoglobin 31.7 pg (27.0-31.0); Mean Corpuscular Volume 99.2 fL (78.0-102.0); Mean Platelet Volume 11.8 fl (9.2-11.8); Monocytes Absolute Auto 0.51 K/mm3 (0.10-0.90); Neutrophils Absolute Auto 4.14 K/mm3 (1.70-7.20); Neutrophils Percent Auto 56.7 % (50.0-70.0); Platelet Count Result 197 K/mm3 (150-420); Red Blood Count 3.78 M/mm3 (4.20-5.40); Red Cell Distribution Width 13.8 % (11.6-14.4); White Blood Count 7.3 K/mm3 (4.8-10.8)
[2023-12-16 09:31] LABS: Appearance Urine Sl Cloudy (Clear); Bilirubin Urine Negative (Negative); Blood Urine Negative (Negative); Color Urine Light Yellow (Yellow); Glucose Urine UA Negative (Negative); INR 1.1; Ketones Urine Negative (Negative); Leukocyte Esterase Ur Trace (Negative); Nitrate Urine Negative (Negative); Protein Urine Negative (Negative); Prothrombin Time 12.2 Seconds (9.50-12.1); Specific Grav Ur 1.025 (1.010-1.020); Urobilinogen Urine 0.2 mg/dL (0.2-1.0)
[2023-12-16 09:37] LABS: Hemoglobin A1C 6.9 % (<5.7)
[2023-12-16 09:38] LABS: MALB Creatinine Ratio 17.6 mg/g (0-30); Microalbumin Urine Random < 13.0 mg/L
[2023-12-16 09:47] LABS: Add Urine Microscopic? YES; Bacteria Urine 2+ /hpf; RBC Urine None seen /hpf (0-2); Squamous Epithelial Cell Urine Few /hpf (Few); WBC Urine 21-30 /hpf (0-3)
[2023-12-16 10:59] LABS: Alanine Aminotransferase 24 U/L (14-59); Albumin Level 3.3 g/dL (3.4-5.0); Alkaline Phosphatase 46 U/L (46-116); Anion Gap 7 mmol/L (4-12); Aspartate Amino Transferase 17 U/L (15-37); Bilirubin,Total 0.4 mg/dL (0.00-1.00); Blood Urea Nitrogen 33 mg/dL (7-18); Calcium 9.2 mg/dL (8.5-10.1); Carbon Dioxide 29 mmol/L (21-32); Chloride 107 mmol/L (98-108); Estimated Glomerular Filt Rate 46; Glucose 128 mg/dL (70-99); Osmolality Calculated 305 mOsm/kg (285-295); Potassium 4.4 mmol/L (3.5-5.1); Sodium 143 mmol/L (136-145); Total Protein 6.1 g/dL (6.4-8.2)
== END 2023-12-16 08:59 | disposition home or self-care (01) ==
PROVIDERS: PCP Family Medicine; Visit Provider Family Medicine
DX: E11.9 Type 2 diabetes mellitus without complications (principal); Z79.01 Long term (current) use of anticoagulants
CPT/HCPCS: 36415; 80053; 81001; 82043; 83036; 84443; 85025; 85610

== ENCOUNTER 2024-01-17 11:46 | Outpatient (RCR) | payer MEDICARE, SELFPAY ==
[2023-11-14 12:40] LABS: Prothrombin Time 10.9 Seconds (9.50-12.1)
[2024-01-17 12:43] LABS: INR 1.5; Prothrombin Time 15.6 Seconds (9.50-12.1)
== END 2024-02-12 23:59 | disposition home or self-care (01) ==
LOC: CHSLAB 11:46
PROVIDERS: PCP Family Medicine; Visit Provider Family Medicine
DX: Z51.81 Encounter for therapeutic drug level monitoring (principal); Z79.01 Long term (current) use of anticoagulants
CPT/HCPCS: 36415; 85610

== ENCOUNTER 2024-03-19 13:40 | Outpatient (CLI) | payer MEDICARE, SELFPAY ==
[2024-03-19 14:44] LABS: Basophils Absolute Auto 0.07 K/mm3 (0.00-0.10); Basophils Percent Auto 0.7 % (0.0-1.0); Eosinophils Absolute Auto 0.46 K/mm3 (0.02-0.50); Eosinophils Percent Auto 4.6 % (1.0-6.0); Hematocrit 37.2 % (35.0-42.0); Hemoglobin 12.2 g/dL (11.7-13.8); Immature Granulocyte Absolute 0.03 K/mm3 (0.00-0.00); Immature Granulocyte Percent A 0.3 % (0.0-0.0); Lymphocytes Absolute Auto 2.57 K/mm3 (1.10-4.50); Lymphocytes Percent Auto 25.9 % (18.0-42.0); Mean Corpuscular HGB Conc 32.8 g/dL (32-36); Mean Corpuscular Hemoglobin 32.8 pg (27.0-31.0); Mean Platelet Volume 12.3 fl (9.2-11.8); Monocytes Absolute Auto 0.72 K/mm3 (0.10-0.90); Monocytes Percent Auto 7.3 % (2.0-11.0); Neutrophils Absolute Auto 6.08 K/mm3 (1.70-7.20); Neutrophils Percent Auto 61.2 % (50.0-70.0); Platelet Count Result 195 K/mm3 (150-420); Red Blood Count 3.72 M/mm3 (4.20-5.40); Red Cell Distribution Width 13.7 % (11.6-14.4); White Blood Count 9.9 K/mm3 (4.8-10.8)
[2024-03-19 14:48] LABS: Appearance Urine Clear (Clear); Bilirubin Urine Negative (Negative); Blood Urine Negative (Negative); Color Urine Light Yellow (Yellow); Glucose Urine UA Negative (Negative); Ketones Urine Negative (Negative); Leukocyte Esterase Ur Trace (Negative); Nitrate Urine Negative (Negative); Protein Urine Negative (Negative); Urobilinogen Urine 0.2 mg/dL (0.2-1.0); pH Urine 5.5 (5.0-8.0)
[2024-03-19 14:53] LABS: Creatinine Urine 79.46 mg/dL (40-278); Hemoglobin A1C 6.5 % (<5.7); MALB Creatinine Ratio 16.3 mg/g (0-30); Microalbumin Urine Random < 13.0 mg/L
[2024-03-19 14:56] LABS: INR 2.4; Prothrombin Time 24.7 Seconds (9.50-12.1)
[2024-03-19 14:57] LABS: Add Urine Microscopic? YES; Bacteria Urine 2+ /hpf; Mucus Urine Few /lpf; RBC Urine None seen /hpf (0-2); Squamous Epithelial Cell Urine Moderate /hpf (Few); WBC Clumps Urine Present /hpf
[2024-03-19 15:00] LABS: Alanine Aminotransferase 21 U/L (14-59); Albumin Level 3.4 g/dL (3.4-5.0); Alkaline Phosphatase 61 U/L (46-116); Anion Gap 8 mmol/L (4-12); Aspartate Amino Transferase 17 U/L (15-37); Bilirubin,Total 0.3 mg/dL (0.00-1.00); Blood Urea Nitrogen 34 mg/dL (7-18); Calcium 9.4 mg/dL (8.5-10.1); Carbon Dioxide 27 mmol/L (21-32); Chloride 103 mmol/L (98-108); Estimated Glomerular Filt Rate 49; Glucose 91 mg/dL (70-99); Osmolality Calculated 293 mOsm/kg (285-295); Sodium 138 mmol/L (136-145); Total Protein 7.2 g/dL (6.4-8.2)
== END 2024-03-19 13:41 | disposition home or self-care (01) ==
LOC: CHSLAB 13:43
PROVIDERS: PCP Family Medicine; Visit Provider Family Medicine
DX: N18.9 Chronic kidney disease, unspecified (principal); Z79.01 Long term (current) use of anticoagulants; E11.9 Type 2 diabetes mellitus without complications
CPT/HCPCS: 36415; 80053; 81001; 82043; 83036; 85025; 85610

== ENCOUNTER 2024-09-18 09:43 | Inpatient (IN) | payer MEDICARE, SELFPAY ==
[2024-09-18] VITALS (36 sets, daily range): BP systolic 114–186; BP diastolic 63–128; PULSE 72–113; RESP 9–26; TEMP 36.4–36.8; O2SAT 83–100; BMI 48.6
--- NOTE | ~2024-09-18 | XR_ITS ---
EXAMINATION: XR chest 1V portable Exam Date/Time: 09/18/2024 14:52 [employer] HISTORY: weakness Comparison: 01/14/2023; CT abdomen pelvis 08/04/2015. RESULT: Lines, tubes, and devices: Cholecystectomy clips. Lungs and pleura: Subsegmental airspace disease in the right lung base. Mild scattered reticular opa cities. Cardiomediastinal silhouette: Stable. Other: No acute osseous or upper abdominal finding. IMPRESSION: Subsegmental right basilar atelectasis/consolidation. Mild diffuse interstitial edema versus chronic interstitial change Reviewed, dictated and finalized at location K. [employer]
--- NOTE | ~2024-09-18 | US_ITS ---
EXAMINATION: US venous doppler [facility] DATE: 09/18/2024 16:24 INDICATION: swelling . TECHNIQUE: Grayscale images without and with compression and Doppler images of the bilateral lower ex tremity veins were obtained. COMPARISON: 01/14/2023 FINDINGS: Noncompressible right posterior tibial vein. The right peroneal and gastrocnemius veins were not adeq uately visualized. The right common femoral vein, profunda (deep) femoral vein, femoral vein, poplite al vein, and greater saphenous vein are patent. The left popliteal, posterior tibial, peroneal, and gastrocnemius veins were not adequately visualize d. The left common femoral vein, profunda (deep) femoral vein, femoral vein, and greater saphenous v ein are patent. IMPRESSION: Inadequate visualization of multiple lower extremity veins bilaterally as detailed above. DVT visuali zed in the right posterior tibial vein. No other thrombus detected within the adequately visualized v eins. Reviewed, dictated and finalized at location K. ESS CONTROL TECH IMPRESSION: Inadequate visualization of multiple lower extremity veins bilaterally as joeyai led above. DVT visualized in the right posterior tibial vein. No other thrombus detected within the adequately visualized veins.
--- NOTE | ~2024-09-18 | CT_ITS ---
History: Fall PROCEDURE: CT head without contrast. COMPARISON: 01/12/2018 TECHNIQUE: Axial imaging of the head performed from the skull base to the vertex without IV contrast. Sagittal a nd coronal reformations obtained. DLP: 605 mGy-cm FINDINGS: The ventricles are enlarged. The dilatation of the ventricles is proportional to the degree of sulcal prominence, not uncommon in the senescent brain. Decreased attenuation is identified within the periventricular white matter, likely secondary to micr ovascular ischemic disease, in a patient of this age. There is no mass, mass effect or midline shift. There is no abnormal extra-axial fluid collection or intracranial hemorrhage. Visualized paranasal sinuses are clear. The mastoid air cells are well aerated. No acute displaced fractures within the overlying cranium. Impression: No acute intracranial hemorrhage or suspicious mass effect. Reviewed, dictated and finalized at location A. ERY BAGGER Impression: No acute intracranial hemorrhage or suspicious mass effect.
--- NOTE | ~2024-09-18 | CT_ITS ---
History: Fall PROCEDURE: CT cervical spine without intravenous contrast. COMPARISON: None TECHNIQUE: Multiple contiguous axial images of the cervical spine were performed without the administration of i ntravenous contrast. DLP: 500 mGy-cm FINDINGS: Straightening and reversal of the normal curvature of the cervical spine is identified, likely muscul ar in origin and due to long-standing degenerative disease. No acute fractures are present. Significant kyphosis is demonstrated. Significant osteophyte formation, disc space narrowing, endplate changes, partial ankylosis (at the l evel of C2/C3), facet hypertrophy and vacuum phenomenon. Large hemangioma within the vertebral body of T1, to the left of midline. Biapical scarring is demonstrated. No soft tissue abnormality is present. The airway is patent. Impression: Significant degenerative disease, without acute fracture. Reviewed, dictated and finalized at location A. ILATION MECHANIC Impression: Significant degenerative disease, without acute fracture.
--- NOTE | 2024-09-18 13:31 | PC.NURSE ---
Addendum entered by Charley Manriquez RN 09/18/24 13:40: Patient states that she has a history of a lot of blood clots in her leg. That she takes warfarin and that she stopped taking it three days ago because she ran out. patient also c/o having 60 pounds at least of fluid in her legs. when asked what her pcp is doing for that issue she states He thinks I'm taking a water pill, but I have never taken it Original Note: pt to ED in a diaper that was filled with pads that she put on yesterday diaper saturated and gel contents covering patient skin in groin and bottom area. patient states that she just urinates constantly all the time.
[2024-09-18 13:58] LABS: Basophils Absolute Auto 0.1 K/mm3 (0.0-0.1); Basophils Percent Auto 0.7 % (0.2-1.2); Eosinophils Absolute Auto 0.3 K/mm3 (0-0.3); Hematocrit 38.3 % (37.0-47.0); Hemoglobin 12.3 g/dL (12.0-15.0); Immature Granulocyte Absolute 0.06 K/mm3 (0.00-0.031); Immature Granulocyte Percent A 0.6 % (0-0.5); Lymphocytes Absolute Auto 2.17 K/mm3 (0.9-3.2); Lymphocytes Percent Auto 21.7 % (18.3-44.2); Mean Corpuscular HGB Conc 32.1 g/dl (32-36); Mean Corpuscular Hemoglobin 32.7 pg (26-34); Mean Corpuscular Volume 101.9 fl (80-100); Monocytes Percent Auto 9.8 % (2.6-8.5); Neutrophils Absolute Auto 6.4 K/mm3 (1.3-6.7); Neutrophils Percent Auto 64.2 % (45.5-73.1); Platelet Count Result 208 k/mm3 (150-375); Red Blood Count 3.76 M/mm3 (4.2-5.4); Red Cell Distribution Width 14.6 % (11.5-14.5)
[2024-09-18 14:08] LABS: INR 1.6; Prothrombin Time 19.7 Seconds (11.1-14.7)
[2024-09-18 14:09] LABS: Partial Thromboplastin Time 31.4 Seconds (22.3-36.8)
[2024-09-18 14:10] LABS: Alanine Aminotransferase 11 U/L (6-35); Albumin Level 3.7 g/dL (3.5-5.1); Alkaline Phosphatase 63 U/L (38-126); Anion Gap 8 mmol/L (4-12); Aspartate Amino Transferase 16 U/L (14-36); Bilirubin,Total 0.7 mg/dL (0.2-1.3); Blood Urea Nitrogen 17 mg/dL (7-17); Calcium 9.1 mg/dL (8.4-10.2); Carbon Dioxide 27 mmol/L (22-30); Chloride 105 mmol/L (98-107); Estimated Glomerular Filt Rate 53; Glucose 109 mg/dL (65-110); Potassium 4.6 mmol/L (3.4-5.0); Sodium 140 mmol/L (137-145)
[2024-09-18 14:18] LABS: NT Pro B Type Natriuretic Pept 1740 pg/mL (19.9-100)
--- NOTE | 2024-09-18 15:35 | PC.NURSE ---
ultrasound at bedside at this time.
--- NOTE | 2024-09-18 16:48 | ED.GENADULT ---
HPI - General Adult General Chief complaint: Weakness Stated complaint: weakness, BL low leg swelling, R leg dvt r/o, UTI? Time Seen by Provider: 09/18/24 13:11 History of Present Illness HPI narrative: Patient is an 78-year-old female who presents ER with weakness. Reports her legs are to swollen she cannot walk. She does not take her Lasix because she does not like being on herself. She has also not been taking her warfarin over last 3 days because she would not refill it. She has history DVT is having some aching in her calf. No chest pain or chest pressure. She does have some shortness of breath and endorses orthopnea. Related Data Home Medications ?Medication ?Instructions ?Recorded ?Confirmed ?Last Taken ?Type metformin 500 mg tablet 500 mg PO BID 09/18/24 09/18/24 Unknown History pantoprazole 40 mg tablet,delayed 40 mg PO DAILY 09/18/24 09/18/24 Unknown History release pioglitazone 30 mg tablet 30 mg PO DAILY 09/18/24 09/18/24 Unknown History warfarin 1 mg tablet 2 mg PO DAILY 09/18/24 09/18/24 Unknown History warfarin 5 mg tablet 5 mg PO DAILY 09/18/24 09/18/24 Unknown History Allergies Allergy/AdvReac Type Severity Reaction Status Date / Time Iodinated Contrast Media Allergy Intermediate Rash Verified 01/15/23 08:52 Review of Systems Review of Systems: All systems reviewed & are unremarkable except as noted in HPI and below Constitutional: Constitutional: Reports no additional constitutional complaints Cardiovascular: Cardiovascular: Reports no additional cardiovascular complaints Respiratory: Respiratory: Reports no additional respiratory complaints Gastrointestinal: Gastrointestinal: Reports no additional gastrointestinal complaints Musculoskeletal: Musculoskeletal: Reports no additional musculoskeletal complaints [facility] Past Medical History Medical History Essential (primary) hypertension GERD without esophagitis H/O deep venous thrombosis H/O TIA (transient ischemic attack) and stroke Hyperlipidemia Type 2 diabetes mellitus without complications Surgical History Surgical History History of hysterectomy No pertinent past surgical history S/P cholecystectomy Family History Family History Mother Family history of migraine headaches Family history of arthritis Family history of Alzheimer's disease Father Family history of cataracts Family history of diabetes mellitus in first degree relative Family history of congestive heart failure Family history of heart disease in male family member before age 55 Family history of hearing loss Sibling Family history of diabetes mellitus in first degree relative Other Diabetes mellitus Social History Social History (Updated 01/15/23 @ 17:12 by REANNA Hernandez) Social History: Patient currently lives by herself. Her son Dmitry is her surrogate and helps her out at home. She wishes to be a DNR at this time and does have a dog Smoking status: Former smoker Tobacco type: cigarettes Second hand tobacco smoke exposure: No Smoking end date: 09/02/82 Additional smoking assessment comments: patient smoked in her 30's Alcohol intake: never Substance use: never Substance use type: does not use Do You Feel Safe in your Home?: Yes Lack of Transportation: No Lack of Food: Never True Current Housing: I Have Housing Concerned About Future Housing: No Difficulty Paying Gas/Electric Bills: No Difficulty Paying for Meds: No Currently Unemployed: No Education: High School Diploma/GED Difficulty w/ Childcare or Family Care: No Living arrangements: alone Occupation/Education: retired Additional occupation/education comments: [employer] Gender identity (if verbalized by the patient): Female Sexual Orientation (if Verbalized by the Patient): Straight or Heterosexual Spiritual care concerns: No Agree to blood products: Yes Exam Narrative: GENERAL: Well-appearing, well-nourished, and in no acute distress. HEAD: Normocephalic, atraumatic. ENT: Mucous membranes moist. CHEST: Clear to auscultation. No respiratory distress. HEART: Regular rate and rhythm. Normal peripheral pulses. ABDOMEN: Soft, nontender, nondistended. EXTREMITIES: Normal range of motion. 4+ edema. SKIN: Warm, dry, no rash. NEURO: Alert and oriented x3. PSYCH: Normal mood and affect. Course Course Emergency Course: Admit the hospitalist service. Lovenox acute DVT. Lasix for diuresis. Vital Signs Vital signs: Vital Signs Temperature 97.6 F 09/18/24 09:46 Pulse Rate 72 09/18/24 09:46 Respiratory Rate 16 09/18/24 09:46 Blood Pressure 170/63 H 09/18/24 09:46 Pulse Oximetry 98 09/18/24 09:46 Oxygen Delivery Room Air 09/18/24 09:46 Temperature 97.6 F 09/18/24 09:46 Pulse Rate 90 09/18/24 20:00 Respiratory Rate 17 09/18/24 20:00 Blood Pressure 125/65 09/18/24 18:46 Pulse Oximetry 95 09/18/24 20:00 Oxygen Delivery Room Air 09/18/24 20:00 Medical Decision Making Vital Signs Vital Signs: Vital Signs Temperature 97.6 F 09/18/24 09:46 Pulse Rate 72 09/18/24 09:46 Respiratory Rate 16 09/18/24 09:46 Blood Pressure 170/63 H 09/18/24 09:46 Pulse Oximetry 98 09/18/24 09:46 Oxygen Delivery Room Air 09/18/24 09:46 Temperature 97.6 F 09/18/24 09:46 Pulse Rate 90 09/18/24 20:00 Respiratory Rate 17 09/18/24 20:00 Blood Pressure 125/65 09/18/24 18:46 Pulse Oximetry 95 09/18/24 20:00 Oxygen Delivery Room Air 09/18/24 20:00 Lab Data 09/18/24 13:44 09/18/24 13:44 Labs: Lab Results 09/18/24 Range/Units 13:44 WBC 10.0 (4.5-10.0) K/mm3 RBC 3.76 L (4.2-5.4) M/mm3 Hgb 12.3 (12.0-15.0) g/dL Hct 38.3 (37.0-47.0) % MCV 101.9 H (80-100) fl MCH 32.7 (26-34) pg MCHC 32.1 (32-36) g/dl RDW 14.6 H (11.5-14.5) % Plt Count 208 (150-375) k/mm3 MPV 12.0 H (7.4-10.4) fl Immature Gran % (Auto) 0.6 H (0-0.5) % Neut % (Auto) 64.2 (45.5-73.1) % Lymph % (Auto) 21.7 (18.3-44.2) % [place] % (Auto) 9.8 H (2.6-8.5) % Eos % (Auto) 3.0 (0-4.4) % Baso % (Auto) 0.7 (0.2-1.2) % Lymph # (Auto) 2.17 (0.9-3.2) K/mm3 [place] # (Auto) 1.0 H (0.1-0.6) K/mm3 Eos # (Auto) 0.3 (0-0.3) K/mm3 Baso # (Auto) 0.1 (0.0-0.1) K/mm3 Abs Immat Gran (auto) 0.06 H (0.00-0.031) K/mm3 Absolute Neuts (auto) 6.4 (1.3-6.7) K/mm3 Absolute Nucleated RBC 0.000 (0.0-0.012) K/mm3 Nucleated RBC % 0.0 (0.0-0.2) % PT 19.7 H (11.1-14.7) Seconds INR 1.6 APTT 31.4 (22.3-36.8) Seconds Sodium 140 (137-145) mmol/L Potassium 4.6 (3.4-5.0) mmol/L Chloride 105 (98-107) mmol/L Carbon Dioxide 27 (22-30) mmol/L Anion Gap 8 (4-12) mmol/L BUN 17 D (7-17) mg/dL Creatinine 1.01 H (0.7-1.0) mg/dL Estim Creat Clear Calc Not Reportable Estimated GFR 53 L (59 - ) Glucose 109 (65-110) mg/dL Calcium 9.1 (8.4-10.2) mg/dL Total Bilirubin 0.7 (0.2-1.3) mg/dL AST 16 (14-36) U/L ALT 11 (6-35) U/L Alkaline Phosphatase 63 (38-126) U/L NT-Pro-B Natriuret Pep 1740 H (19.9-100) pg/mL Total Protein 7.0 (6.3-8.2) g/dL Albumin 3.7 (3.5-5.1) g/dL Imaging Data Radiologist's impression: ITS Impressions Chest X-Ray 09/18/24 15:03 IMPRESSION: Subsegmental right basilar atelectasis/consolidation. Mild diffuse interstitial edema versus chronic interstitial change Venous Doppler Study 09/18/24 16:26 IMPRESSION: Inadequate visualization of multiple lower extremity veins bilaterally as detailed above. DVT visualized in the right posterior tibial vein. No other thrombus detected within the adequately visualized veins. Discharge Plan Discharge Clinical Impression: DVT (deep venous thrombosis), Pulmonary edema Patient Disposition: Still a Patient Condition: Stable
[2024-09-18] MEDS: FUROSEMIDE INJ 40 MG/4 ML VIAL IV PUSH ×2 (17:25→21:56)
[2024-09-18] MEDS: ENOXAPARIN 80 MG/0.8 ML SYRINGE SUB-Q (18:01)
[2024-09-18] MEDS: ENOXAPARIN 60 MG/0.6 ML SYRINGE 55 MG SUB-Q (18:01)
[2024-09-18] MEDS: HYDROcodone/acetaminophen (*CRX) 5-325 MG TABLET 1 TAB PO (18:21)
--- NOTE | 2024-09-18 19:35 | PC.NURSE ---
catheter emptied. 2000ml output
--- NOTE | 2024-09-18 19:50 | ADMGEN ---
This patient, Akanksha Garner, was admitted to Medical Room 254-01. Patient/family oriented to hospital policies and general routines including ID bracelet, bed and alarms, visiting hours, pain management, procedures, bathroom and other care routines, personal items, smoking policy, room service/diet, and visiting hours. Information on how to activate the Rapid Response Team has been discussed. Patient/Family are encouraged to report perceived risks to care and to ask questions if they do not understand what they are told or what they should do.
--- NOTE | 2024-09-18 22:41 | P.HP_ITS ---
H&P: HPI History of Present Illness Date/Time: 09/18/24 22:41 Chief Complaint: Lower leg swelling Narrative: 78-year-old female with past medical history of DVTs, grade 1 diastolic dysfunction, rheumatoid arthritis, chronic kidney disease stage III and morbid obesity who presented to the ER from home due to increased weakness and lower extremity swelling. Patient admits that she has never taken her Lasix ever since it is been prescribed over a year ago. She has 2 older providers in the past that she is taking it but has never done so. She states that she cannot deal with urinary frequency because she already has bladder prolapse. She thought that she may have urinary tract infection due to her urinary frequency and difficulty feeling she is emptying her bladder. After she had received Lasix she was unable to make it to the bathroom and nursing staff was having difficulty monitoring strict I&O's. I Patterson catheter was ordered from the ER and by the time the patient had arrived to the medical floor she had already had 1 L of urine output. At the time my evaluation the patient's catheter bag was again full and she had another L of urine output. She reports chronic orthopnea and has had to sleep in a recliner for a couple of years due to orthopnea. She does snore and has never been tested for obstructive sleep apnea. She denies any chest pain or palpitations. She has noticed increased lower extremity swelling over the last couple of months that is worsened over the last 2 weeks. She reports that last week she had a blister on her right lower leg and on her anterior goss that it popped and she had large amounts of serous drainage. She became more concerned about her leg swelling at that time but did not seek care until today. She has not had increased shortness of breath from baseline. Her chest x-ray in the ER demonstrated pulmonary edema. She has had a mild nonproductive cough. She denies any recent ill contacts. She denies any chest pain or palpitations. She did not have a CTA performed in the ER due to history of contrast allergy. She is known to have a history of DVTs and was switched back to Coumadin a due to an issue with cost medications. She states that she has been compliant with her Coumadin until yesterday when she had run out of the medications. She reports that her legs are really sensitive due to her history of diabetic peripheral neuropathy. Her legs seem more sensitive in the last few weeks due to degree of swelling and discomfort. She reports that her right leg is hurting more than her left. She reports that she has trouble getting to the restroom because she has chronicly wheelchair dependent. Review of Systems 2 Review of Systems: 12 systems were reviewed with pertinent positives and negatives per HPI. Except as documented in the HPI, all other systems were reviewed and are negative. [facility] Past Medical History Medical History (Updated 09/19/24 @ 01:41 by Johanna Jensen DO) Diabetic polyneuropathy Type 2 diabetes mellitus Morbid obesity with BMI of 45.0-49.9, adult Chronic kidney disease, stage 3a Diastolic heart failure GERD without esophagitis H/O TIA (transient ischemic attack) and stroke H/O deep venous thrombosis Hyperlipidemia Essential (primary) hypertension Surgical History Surgical History (Updated 09/18/24 @ 22:59 by Johanna Jensen DO) History of hysterectomy S/P cholecystectomy Family History Family History Mother Family history of migraine headaches Family history of arthritis Family history of Alzheimer's disease Father Family history of cataracts Family history of diabetes mellitus in first degree relative Family history of congestive heart failure Family history of heart disease in male family member before age 55 Family history of hearing loss Sibling Family history of diabetes mellitus in first degree relative Other Diabetes mellitus Social History Social History (Updated 09/19/24 @ 01:27 by Johanna Jensen DO) Social History: She is (for over 50 years) and lives by herself in a small home on her son's property. She has 2 sons 1 of which is living in a snf due to blindness an intellectual disability associated with extreme prematurity. She has a daughter who is chronically ill and has had a prior cardiac arrest but is still living. Then her youngest son planned is relatively healthy and only the property she lives on. She used to smoke about a quarter pack of cigarettes per day for about 20 years but quit when she was in her 40s. She used to drink an alcoholic beverage every couple of weeks but has not done so in many years. She denies history of illicit substance use. Code status: DNR/DNI (per patient request) Surrogate decision maker: Dmitry (son) Smoking status: Former smoker Tobacco type: cigarettes Second hand tobacco smoke exposure: No Smoking end date: 09/02/82 Additional smoking assessment comments: patient smoked in her 30's Alcohol intake: never Substance use: never Substance use type: does not use Do You Feel Safe in your Home?: Yes Lack of Transportation: No Lack of Food: Never True Current Housing: I Have Housing Concerned About Future Housing: No Difficulty Paying Gas/Electric Bills: No Difficulty Paying for Meds: No Currently Unemployed: No Education: High School Diploma/GED Difficulty w/ Childcare or Family Care: No Living arrangements: alone Occupation/Education: retired Additional occupation/education comments: [employer] Gender identity (if verbalized by the patient): Female Sexual Orientation (if Verbalized by the Patient): Straight or Heterosexual Spiritual care concerns: No Agree to blood products: Yes Meds Home Medications and Allergies Home Medications ?Medication ?Instructions ?Recorded ?Confirmed ?Type furosemide 20 mg tablet (Lasix) 20 mg PO DAILY #30 tabs 01/17/23 09/18/24 Rx atorvastatin 20 mg tablet 20 mg PO DAILY #14 tabs 01/26/23 09/18/24 Rx lisinopril 5 mg tablet 5 mg PO QAM #20 tabs 01/26/23 09/18/24 Rx metformin 500 mg tablet 500 mg PO BID 09/18/24 09/18/24 History pantoprazole 40 mg tablet,delayed 40 mg PO DAILY 09/18/24 09/18/24 History release pioglitazone 30 mg tablet 30 mg PO DAILY 09/18/24 09/18/24 History warfarin 1 mg tablet 2 mg PO DAILY 09/18/24 09/18/24 History warfarin 5 mg tablet 5 mg PO DAILY 09/18/24 09/18/24 History Allergies Allergy/AdvReac Type Severity Reaction Status Date / Time Iodinated Contrast Media Allergy Intermediate Rash Verified 01/15/23 08:52 Vital Signs Vital Signs - 24 hr 09/18/24 09:46 09/18/24 13:06 09/18/24 13:07 Temperature 97.6 F Pulse Rate 72 94 90 Respiratory Rate 16 19 16 Blood Pressure 170/63 H 186/98 H Pulse Oximetry 98 99 99 Oxygen Delivery Room Air 09/18/24 13:17 09/18/24 13:18 09/18/24 13:30 Temperature Pulse Rate 92 81 Respiratory Rate 16 21 H Blood Pressure Pulse Oximetry 92 100 Oxygen Delivery 09/18/24 13:45 09/18/24 13:46 09/18/24 14:00 Temperature Pulse Rate 82 113 H 88 Respiratory Rate 16 23 H 21 H Blood Pressure 150/71 H Pulse Oximetry 96 83 L Oxygen Delivery 09/18/24 14:01 09/18/24 14:15 09/18/24 14:17 Temperature Pulse Rate 84 102 H 90 Respiratory Rate 26 H 21 H 19 Blood Pressure 137/119 H 141/128 H Pulse Oximetry 88 L 98 Oxygen Delivery 09/18/24 14:43 09/18/24 14:45 09/18/24 14:46 Temperature Pulse Rate 112 H 90 84 Respiratory Rate 20 20 15 Blood Pressure 129/78 Pulse Oximetry 96 88 L 96 Oxygen Delivery 09/18/24 15:04 09/18/24 15:21 09/18/24 15:41 Temperature Pulse Rate 80 76 73 Respiratory Rate 16 17 13 Blood Pressure Pulse Oximetry 95 100 98 Oxygen Delivery 09/18/24 16:03 09/18/24 16:15 09/18/24 16:16 Temperature Pulse Rate 74 78 90 Respiratory Rate 19 14 17 Blood Pressure 120/108 H Pulse Oximetry 96 Oxygen Delivery 09/18/24 16:30 09/18/24 16:31 09/18/24 16:45 Temperature Pulse Rate 86 88 86 Respiratory Rate 15 13 16 Blood Pressure 120/68 Pulse Oximetry 98 100 99 Oxygen Delivery 09/18/24 16:46 09/18/24 17:00 09/18/24 17:01 Temperature Pulse Rate 82 80 82 Respiratory Rate 18 16 17 Blood Pressure 114/94 H 132/64 Pulse Oximetry 100 99 Oxygen Delivery 09/18/24 17:15 09/18/24 17:16 09/18/24 17:34 Temperature Pulse Rate 87 107 H 80 Respiratory Rate 22 H 21 H 20 Blood Pressure 127/85 Pulse Oximetry 100 98 Oxygen Delivery 09/18/24 18:41 09/18/24 18:45 09/18/24 18:46 Temperature Pulse Rate 86 87 90 Respiratory Rate 13 9 L 17 Blood Pressure 125/65 Pulse Oximetry 96 95 Oxygen Delivery 09/18/24 19:40 09/18/24 19:51 09/18/24 20:00 Temperature 98.2 F Pulse Rate 86 90 90 Respiratory Rate 16 17 17 Blood Pressure 122/71 Pulse Oximetry 100 95 95 Oxygen Delivery Room Air Room Air Exam 2 Narrative: Weight 124.5 kg BMI 48.6 Const: Other: Morbidly obese, elderly, debilitated HENMT: Other: Mucous membranes are tacky, no oral pharyngeal erythema, fair dentition with a few dental caries noted, crowded posterior oropharynx Eyes: Other: Pupils are equal and reactive, bilateral cataracts noted, no conjunctival pallor, no scleral icterus Neck: Other: Large neck circumference, difficult to assess for JVD due to body habitus, trachea midline Resp: Other: Decreased breath sounds bilaterally, no increased work of breathing, no accessory muscle use Cardio: Other: Sinus bradycardia, 2+ bilateral radial pulses, 2+ bilateral posterior tibial pulses, 1+ bilateral pedal pulses, difficult to assess for JVD due to body habitus GI: Other: Obese, tender in the right upper and mid abdominal area, normoactive bowel sounds, soft : Other: Patterson catheter in place with catheter bag full of pale yellow clear urine Skin: Other: Chronic venous stasis changes bilateral lower extremities with scabbed area of the right lower leg at the level of the ankle and smaller area of scab of the lower leg just inferior to the patella, no foot wounds, generalized pallor Neuro: Other: Loquacious, Alert orient x4, speech is clear, no localizing neurologic deficits noted during the course of conversation Extrem: Other: Patient has chronic venous stasis changes of bilateral lower extremity, both lower extremities are edematous with 2 to 3+ pitting edema. She has areas of early scab formation as mentioned above. She has marked weakness of the lower extremities which she reports is baseline she has 4/5 strength bilateral upper extremities Psych: Other: Loquacious, pleasant and cooperative, judgment and insight intact, H&P: Results Labs Labs: Laboratory Tests 09/18/24 13:44 09/18/24 13:44 09/18/24 13:44 WBC 10.0 RBC 3.76 L Hgb 12.3 Hct 38.3 MCV 101.9 H MCH 32.7 MCHC 32.1 RDW 14.6 H Plt Count 208 MPV 12.0 H Immature Gran % (Auto) 0.6 H Neut % (Auto) 64.2 Lymph % (Auto) 21.7 [place] % (Auto) 9.8 H Eos % (Auto) 3.0 Baso % (Auto) 0.7 Lymph # (Auto) 2.17 [place] # (Auto) 1.0 H Eos # (Auto) 0.3 Baso # (Auto) 0.1 Abs Immat Gran (auto) 0.06 H Absolute Neuts (auto) 6.4 Absolute Nucleated RBC 0.000 Nucleated RBC % 0.0 PT 19.7 H INR 1.6 APTT 31.4 Sodium 140 Potassium 4.6 Chloride 105 Carbon Dioxide 27 Anion Gap 8 BUN 17 D Creatinine 1.01 H Estim Creat Clear Calc Not Reportable Estimated GFR 53 L Glucose 109 Calcium 9.1 Total Bilirubin 0.7 AST 16 ALT 11 Alkaline Phosphatase 63 NT-Pro-B Natriuret Pep 1740 H Total Protein 7.0 Albumin 3.7 Impressions Chest X-Ray 09/18/24 15:03 IMPRESSION: Subsegmental right basilar atelectasis/consolidation. Mild diffuse interstitial edema versus chronic interstitial change Venous Doppler Study 09/18/24 16:26 IMPRESSION: Inadequate visualization of multiple lower extremity veins bilaterally as detailed above. DVT visualized in the right posterior tibial vein. No other thrombus detected within the adequately visualized veins. All imaging and EKGs personally reviewed and interpreted. And unless stated otherwise agree with radiologic and cardiology interpretation. Assessment and Plan Assessment and plan (1) DVT (deep venous thrombosis): Qualifiers: Affected thrombotic vein of extremity: tibial Chronicity: acute DVT location: lower extremity Laterality: right Qualified Code(s): I82.441 - Acute embolism and thrombosis of right tibial vein Code(s): I82.409 - Acute embolism and thrombosis of unspecified deep veins of unspecified lower extremity Status: Acute (2) Acute on chronic diastolic CHF (congestive heart failure): Code(s): I50.33 - Acute on chronic diastolic (congestive) heart failure Status: Acute (3) Pulmonary edema: Qualifiers: Chronicity: acute Qualified Code(s): J81.0 - Acute pulmonary edema Code(s): J81.1 - Chronic pulmonary edema Status: Acute (4) Noncompliance with medication regimen: Code(s): Z91.148 - Patient's other noncompliance with medication regimen for other reason Status: Acute (5) Morbid obesity with BMI of 45.0-49.9, adult: Code(s): E66.01 - Morbid (severe) obesity due to excess calories; Z68.42 - Body mass index [BMI] 45.0-49.9, adult Status: Acute Plan Patient has right lower extremity posterior tibial DVT due to noncompliance with chronic anticoagulation with Coumadin. Patient been started on therapeutic Lovenox. Will resume home Coumadin and monitor INR. Patient also has evidence of pulmonary edema on imaging and does have a history of diastolic dysfunction. Sounds as if patient has also been not adherent to her home diuretic therapy. Will place patient on Lasix 40 mg IV b.i.d. and monitor strict I&O's and daily weights. Will continue patient's home low-dose lisinopril. Patient does have type 2 diabetes mellitus but is currently euglycemic. Will hold the patient's home metformin and resume the patient's home pioglitazone. Will add low-dose sliding scale insulin with Accu-Cheks a.c. HS and hypoglycemia protocol as needed. Will switch diet to consistent carbohydrate with a 2 g sodium restriction. The importance of compliance with medication regimen was discussed in detail with patient. She states that she plans on taking her Lasix as directed on time of discharge. She reports compliance with her Coumadin although patient INR is sub therapeutic and is unclear whenever she last had her INR checked as outpatient. The importance of compliance with anticoagulation was discussed with the patient. She states she cannot afford Eliquis or Xarelto and would prefer to stay on Coumadin. Patient does have significant orthopnea likely due to a combination of heart failure and likely previously undiagnosed/untreated obstructive sleep apnea. Will order ApneaLink monitor. Quality VTE Prophylaxis VTE prophylaxis: pharmacologic ordered (Therapeutic Lovenox and Coumadin) Hospitalist [facility] Advance Care Plan I have confirmed that the patient's Advanced Care Plan is present, code status is documented, or surrogate decision maker is listed in patient medical record.: Yes Medication Reconciliation I have utilized all available resources to obtain, update and review the patients current medications (includes all prescriptions, OTC, herbals, cannabis, and nutritional supplements).: Yes
[2024-09-19 00:22] LABS: Appearance Urine Clear (Clear); Bilirubin Urine Negative (Negative); Blood Urine Negative (Negative); Color Urine Yellow (Yellow); Glucose Urine UA Negative (Negative); Ketones Urine Negative (Negative); Leukocyte Esterase Ur 1+ LEU/UL (Negative); Nitrate Urine Negative (Negative); Protein Urine Negative (Negative); Specific Grav Ur 1.006 (1.001-1.035); Urobilinogen Urine 0.2 mg/dL (<2.0)
[2024-09-19 00:23] LABS: Add Urine Microscopic? YES; Bacteria Urine 1+ /hpf; Need Manual Microscopic Reviewed; Non Pathogenic Casts 0-2; RBC Urine 0-2 /hpf (0-2); Squamous Epithelial Cell Urine None Seen /hpf (Few); WBC Urine 0-5 /hpf (0-3)
[2024-09-19 04:54] VITALS: BP 121/58; PULSE 78; RESP 16; TEMP 36.6; O2SAT 92
[2024-09-19 05:57] LABS: INR 1.7; Prothrombin Time 20.4 Seconds (11.1-14.7)
[2024-09-19 08:08] LABS: Glucose Point of Care 100 mg/dl (65-105)
[2024-09-19 08:15] LABS: Basophils Absolute Auto 0.1 K/mm3 (0.0-0.1); Basophils Percent Auto 0.7 % (0.2-1.2); Eosinophils Absolute Auto 0.2 K/mm3 (0-0.3); Eosinophils Percent Auto 2.4 % (0-4.4); Hematocrit 33.3 % (37.0-47.0); Hemoglobin 10.8 g/dL (12.0-15.0); Immature Granulocyte Absolute 0.02 K/mm3 (0.00-0.031); Immature Granulocyte Percent A 0.2 % (0-0.5); Lymphocytes Absolute Auto 1.83 K/mm3 (0.9-3.2); Lymphocytes Percent Auto 20.6 % (18.3-44.2); Mean Corpuscular HGB Conc 32.4 g/dl (32-36); Mean Corpuscular Hemoglobin 32.5 pg (26-34); Mean Corpuscular Volume 100.3 fl (80-100); Mean Platelet Volume 12.8 fl (7.4-10.4); Monocytes Percent Auto 11.6 % (2.6-8.5); Neutrophils Absolute Auto 5.7 K/mm3 (1.3-6.7); Neutrophils Percent Auto 64.5 % (45.5-73.1); Platelet Count Result 205 k/mm3 (150-375); Red Blood Count 3.32 M/mm3 (4.2-5.4); Red Cell Distribution Width 14.7 % (11.5-14.5); White Blood Count 8.9 K/mm3 (4.5-10.0)
[2024-09-19 08:28] LABS: Alanine Aminotransferase 11 U/L (6-35); Albumin Level 3.2 g/dL (3.5-5.1); Alkaline Phosphatase 57 U/L (38-126); Anion Gap 6 mmol/L (4-12); Aspartate Amino Transferase 42 U/L (14-36); Bilirubin,Total 0.7 mg/dL (0.2-1.3); Blood Urea Nitrogen 17 mg/dL (7-17); Carbon Dioxide 29 mmol/L (22-30); Chloride 102 mmol/L (98-107); Estimated CRCL calculation 51 ml/min; Estimated Glomerular Filt Rate 56; Glucose 104 mg/dL (65-110); Magnesium 1.5 mg/dL (1.6-2.3); Potassium 3.9 mmol/L (3.4-5.0); Sodium 137 mmol/L (137-145)
[2024-09-19] MEDS: PANTOPRAZOLE 40 MG TABLET PO (08:59)
[2024-09-19] MEDS: ATORVASTATIN 20 MG TABLET PO (08:59)
[2024-09-19] MEDS: lisinopriL 5 MG TABLET PO (08:59)
[2024-09-19] MEDS: PIOGLITAZONE HCL 30 MG TABLET PO (09:00)
[2024-09-19] MEDS: FUROSEMIDE INJ 40 MG/4 ML VIAL IV PUSH ×2 (09:02→20:45)
[2024-09-19] MEDS: MAGNESIUM SULF 2 GM/WATER 50ML 2 GM/50 ML BAG IVPB (09:05)
[2024-09-19 11:51] LABS: Glucose Point of Care 124 mg/dl (65-105)
--- NOTE | 2024-09-19 12:07 | P.PNIM_ITS ---
Progress Note: A&P Assessment and Plan (1) DVT (deep venous thrombosis): Qualifiers: Affected thrombotic vein of extremity: tibial Chronicity: acute DVT location: lower extremity Laterality: right Qualified Code(s): I82.441 - Acute embolism and thrombosis of right tibial vein Code(s): I82.409 - Acute embolism and thrombosis of unspecified deep veins of unspecified lower extremity Status: Acute Assessment and Plan: * Patient has right lower extremity posterior tibial DVT due to noncompliance with chronic anticoagulation with Coumadin. * Warfarin 7 mg PO daily. * Monitor labs. (2) Acute on chronic diastolic CHF (congestive heart failure): Code(s): I50.33 - Acute on chronic diastolic (congestive) heart failure Status: Acute Assessment and Plan: * Furosemide 40 mg ivp q 12. * Patterson catheter, strict I&O's. * Daily weights. * Swelling in legs improving. * Monitor labs. (3) Pulmonary edema: Qualifiers: Chronicity: acute Qualified Code(s): J81.0 - Acute pulmonary edema Code(s): J81.1 - Chronic pulmonary edema Status: Acute Assessment and Plan: * Patient also has evidence of pulmonary edema on imaging and does have a history of diastolic dysfunction. * Furosemide 40 mg ivp q 12. (4) Type 2 diabetes mellitus without complications: Qualifiers: Diabetes mellitus superintendent container terminal insulin use: without fpc use Qualified Code(s): E11.9 - Type 2 diabetes mellitus without complications Code(s): E11.9 - Type 2 diabetes mellitus without complications Status: Chronic Assessment and Plan: * Patient does have type 2 diabetes mellitus but is currently euglycemic. Will hold the patient's home metformin and resume the patient's home pioglitazone. * Will add low-dose sliding scale insulin with Accu-Cheks a.c. HS and hypoglycemia protocol as needed. (5) Noncompliance with medication regimen: Code(s): Z91.148 - Patient's other noncompliance with medication regimen for other reason Status: Acute Assessment and Plan: * Encourage compliance. (6) Morbid obesity with BMI of 45.0-49.9, adult: Code(s): E66.01 - Morbid (severe) obesity due to excess calories; Z68.42 - Body mass index [BMI] 45.0-49.9, adult Status: Acute Assessment and Plan: * 2 gram sodium consistent carb diet. * Encourage activity. Plan The importance of compliance with medication regimen was discussed in detail with patient. She states that she plans on taking her Lasix as directed on time of discharge. She reports compliance with her Coumadin although patient INR is sub therapeutic and is unclear whenever she last had her INR checked as outpatient. The importance of compliance with anticoagulation was discussed with the patient. She states she cannot afford Eliquis or Xarelto and would prefer to stay on Coumadin. Patient does have significant orthopnea likely due to a combination of heart failure and likely previously undiagnosed/untreated obstructive sleep apnea. Will order ApneaLink monitor. Subjective Date/time seen: 09/19/24 12:07 Interval history: Patient sitting up in bed. Patient reports the swelling in her legs is going down. Patient denies chest pain, palpitations, headache, dizziness, nausea, or vomiting. Review of Systems Review of Systems: All systems reviewed & are unremarkable except as noted in HPI and below Exam Const: General: comfortable and no acute distress Eyes: Sclera: sclerae normal Resp: Effort & Inspection: normal respiratory effort Auscultation: diminished lung sounds Cardio: Rate: regular rate Rhythm: regular rhythm GI: GI Palp: Yes Soft to palpation Auscultation: normal bowel sounds Urinary Catheter: Urinary Catheter: patent and draining Skin: Other: Chronic venous stasis changes bilateral lower extremities with scabbed area of the right lower leg at the level of the ankle and smaller area of scab of the lower leg just inferior to the patella, no foot wounds, generalized pallor Neuro: Speech: normal speech Extrem: General: pedal edema bilaterally 2+ Psych: Mental Status: mental status grossly normal Affect: normal affect Objective Data Vital Signs Vital Signs: Vital Signs - 24 hr 09/18/24 13:06 09/18/24 13:07 09/18/24 13:17 Temperature Pulse Rate 94 90 92 Respiratory Rate 19 16 Blood Pressure 186/98 H Pulse Oximetry 99 99 Oxygen Delivery 09/18/24 13:18 09/18/24 13:30 09/18/24 13:45 Temperature Pulse Rate 81 82 Respiratory Rate 16 21 H 16 Blood Pressure Pulse Oximetry 92 100 96 Oxygen Delivery 09/18/24 13:46 09/18/24 14:00 09/18/24 14:01 Temperature Pulse Rate 113 H 88 84 Respiratory Rate 23 H 21 H 26 H Blood Pressure 150/71 H 137/119 H Pulse Oximetry 83 L 88 L Oxygen Delivery 09/18/24 14:15 09/18/24 14:17 09/18/24 14:43 Temperature Pulse Rate 102 H 90 112 H Respiratory Rate 21 H 19 20 Blood Pressure 141/128 H Pulse Oximetry 98 96 Oxygen Delivery 09/18/24 14:45 09/18/24 14:46 09/18/24 15:04 Temperature Pulse Rate 90 84 80 Respiratory Rate 20 15 16 Blood Pressure 129/78 Pulse Oximetry 88 L 96 95 Oxygen Delivery 09/18/24 15:21 09/18/24 15:41 09/18/24 16:03 Temperature Pulse Rate 76 73 74 Respiratory Rate 17 13 19 Blood Pressure Pulse Oximetry 100 98 96 Oxygen Delivery 09/18/24 16:15 09/18/24 16:16 09/18/24 16:30 Temperature Pulse Rate 78 90 86 Respiratory Rate 14 17 15 Blood Pressure 120/108 H Pulse Oximetry 98 Oxygen Delivery 09/18/24 16:31 09/18/24 16:45 09/18/24 16:46 Temperature Pulse Rate 88 86 82 Respiratory Rate 13 16 18 Blood Pressure 120/68 114/94 H Pulse Oximetry 100 99 100 Oxygen Delivery 09/18/24 17:00 09/18/24 17:01 09/18/24 17:15 Temperature Pulse Rate 80 82 87 Respiratory Rate 16 17 22 H Blood Pressure 132/64 Pulse Oximetry 99 Oxygen Delivery 09/18/24 17:16 09/18/24 17:34 09/18/24 18:41 Temperature Pulse Rate 107 H 80 86 Respiratory Rate 21 H 20 13 Blood Pressure 127/85 Pulse Oximetry 100 98 96 Oxygen Delivery 09/18/24 18:45 09/18/24 18:46 09/18/24 19:40 Temperature 98.2 F Pulse Rate 87 90 86 Respiratory Rate 9 L 17 16 Blood Pressure 125/65 122/71 Pulse Oximetry 95 100 Oxygen Delivery 09/18/24 19:51 09/18/24 20:00 09/19/24 04:54 Temperature 97.9 F Pulse Rate 90 90 78 Respiratory Rate 17 17 16 Blood Pressure 121/58 L Pulse Oximetry 95 95 92 Oxygen Delivery Room Air Room Air Intake/Output Intake/Output: Intake & Output 09/16/24 09/17/24 09/18/24 09/19/24 23:59 23:59 23:59 23:59 Intake Total 440 Output Total 3550 Balance -3110 Meds/Results Medications: Active Medications Generic Name Dose Route Start Last Admin Trade Name Freq PRN Reason Stop Dose Admin Acetaminophen 650 mg 09/18/24 17:39 Acetaminophen 325 Mg Tablet PO Q4H PRN Mild Pain (1-3) or Fever Hydrocodone Bitart/Acetaminophen 1 tab 09/18/24 17:39 09/18/24 18:21 Hydrocodone/Acetaminophen (*Crx) 5-325 Mg Tablet PO 1 tab Q4H PRN Administration Pain Rated 4-6 Atorvastatin Calcium 20 mg 09/19/24 09:00 09/19/24 08:59 Atorvastatin 20 Mg Tablet PO 20 mg DAILY VALENTIN Administration Dextrose 12.5 gm 09/18/24 21:00 Dextrose 50% 25 Gm/50 Ml Syringe IV PUSH PRN PRN Hypoglycemia Protocol Furosemide 40 mg 09/18/24 21:00 09/19/24 09:02 Furosemide Inj 40 Mg/4 Ml Vial IV PUSH 40 mg Q12HR VALENTIN Administration Glucagon 1 mg 09/18/24 21:00 Glucagon For Inj 1 Mg Vial IM PRN PRN Hypoglycemia Protocol Glucose 15 gm 09/18/24 21:00 Glucose Oral Gel 15 Gm Of Glucse In 37.5 Gm Tube PO PRN PRN Hypoglycemia Protocol Dextrose 1,000 mls @ 100 mls/hr 09/18/24 21:00 Dextrose 5% 1,000 Ml IVPB PRN PRN Hypoglycemia Protocol Insulin Aspart 2 - 5 units 09/19/24 08:00 09/19/24 08:35 Insulin Aspart (*Bkc) 100 Units/Ml SUB-Q Not Given TIDWM [facility] Protocol Insulin Aspart 1 - 2 units 09/18/24 21:00 09/18/24 21:51 Insulin Aspart (*Bkc) 100 Units/Ml SUB-Q Not Given HS [facility] Protocol Lisinopril 5 mg 09/19/24 09:00 09/19/24 08:59 Lisinopril 5 Mg Tablet PO 5 mg QAM VALENTIN Administration Multi-Ingred Cream/Lotion/Oil/Oint 1 applic 09/19/24 12:05 Eucerin Cream 120 Gm Jar TOPICAL DAILY VALENTIN Ondansetron HCl 4 mg 09/18/24 17:39 Ondansetron Inj 4 Mg/2 Ml Vial IV PUSH Q4H PRN Nausea Pantoprazole Sodium 40 mg 09/19/24 09:00 09/19/24 08:59 Pantoprazole 40 Mg Tablet PO 40 mg DAILY VALENTIN Administration Pioglitazone HCl 30 mg 09/19/24 09:00 09/19/24 09:00 Pioglitazone Hcl 30 Mg Tablet PO 30 mg DAILY VALENTIN Administration Warfarin Sodium 5 mg 09/19/24 17:00 Warfarin (*Pbkc) 5 Mg Tablet PO DAILY@1700 VALENTIN Warfarin Sodium 2 mg 09/19/24 17:00 Warfarin (*Pbkc) 2 Mg Tablet PO DAILY@1700 [facility] Radiology Results: ITS Impressions Chest X-Ray 09/18/24 15:03 IMPRESSION: Subsegmental right basilar atelectasis/consolidation. Mild diffuse interstitial edema versus chronic interstitial change Venous Doppler Study 09/18/24 16:26 IMPRESSION: Inadequate visualization of multiple lower extremity veins bilaterally as detailed above. DVT visualized in the right posterior tibial vein. No other thrombus detected within the adequately visualized veins. Labs Labs: Laboratory Results - last 24 hr 09/18/24 09/19/24 09/19/24 13:44 00:00 05:34 WBC 10.0 8.9 RBC 3.76 L 3.32 L Hgb 12.3 10.8 L Hct 38.3 33.3 L MCV 101.9 H 100.3 H MCH 32.7 32.5 MCHC 32.1 32.4 RDW 14.6 H 14.7 H Plt Count 208 205 MPV 12.0 H 12.8 H Immature Gran % (Auto) 0.6 H 0.2 Neut % (Auto) 64.2 64.5 Lymph % (Auto) 21.7 20.6 [place] % (Auto) 9.8 H 11.6 H Eos % (Auto) 3.0 2.4 Baso % (Auto) 0.7 0.7 Lymph # (Auto) 2.17 1.83 [place] # (Auto) 1.0 H 1.0 H Eos # (Auto) 0.3 0.2 Baso # (Auto) 0.1 0.1 Abs Immat Gran (auto) 0.06 H 0.02 Absolute Neuts (auto) 6.4 5.7 Absolute Nucleated RBC 0.000 0.000 Nucleated RBC % 0.0 0.0 PT 19.7 H 20.4 H INR 1.6 1.7 APTT 31.4 Sodium 140 137 Potassium 4.6 3.9 Chloride 105 102 Carbon Dioxide 27 29 Anion Gap 8 6 BUN 17 D 17 Creatinine 1.01 H 0.96 Estim Creat Clear Calc Not Reportable 51 Estimated GFR 53 L 56 L Glucose 109 104 POC Capillary Glucose Calcium 9.1 9.0 Magnesium 1.5 L Total Bilirubin 0.7 0.7 AST 16 42 H ALT 11 11 Alkaline Phosphatase 63 57 NT-Pro-B Natriuret Pep 1740 H Total Protein 7.0 6.0 L Albumin 3.7 3.2 L Urine Color Yellow Urine Appearance Clear Urine pH 5.0 Ur Specific [place] 1.006 Urine Protein Negative Urine Glucose (UA) Negative Urine Ketones Negative Ur Blood (Man) Negative Urine Nitrate Negative Urine Bilirubin Negative Urine Urobilinogen 0.2 Add Ur Microanalysis Reviewed Leukocyte Esterase Rfl 1+ H Urine RBC 0-2 Urine WBC 0-5 Ur Squamous Epith Cells None seen Urine Bacteria 1+ H Urine Casts 0-2 09/19/24 09/19/24 08:05 11:47 WBC RBC Hgb Hct MCV MCH MCHC RDW Plt Count MPV Immature Gran % (Auto) Neut % (Auto) Lymph % (Auto) [place] % (Auto) Eos % (Auto) Baso % (Auto) Lymph # (Auto) [place] # (Auto) Eos # (Auto) Baso # (Auto) Abs Immat Gran (auto) Absolute Neuts (auto) Absolute Nucleated RBC Nucleated RBC % PT INR APTT Sodium Potassium Chloride Carbon Dioxide Anion Gap BUN Creatinine Estim Creat Clear Calc Estimated GFR Glucose POC Capillary Glucose 100 124 H Calcium Magnesium Total Bilirubin AST ALT Alkaline Phosphatase NT-Pro-B Natriuret Pep Total Protein Albumin Urine Color Urine Appearance Urine pH Ur Specific [place] Urine Protein Urine Glucose (UA) Urine Ketones Ur Blood (Man) Urine Nitrate Urine Bilirubin Urine Urobilinogen Add Ur Microanalysis Leukocyte Esterase Rfl Urine RBC Urine WBC Ur Squamous Epith Cells Urine Bacteria Urine Casts Quality VTE Prophylaxis VTE prophylaxis: pharmacologic ordered (Therapeutic Lovenox and Coumadin)
[2024-09-19] MEDS: EUCERIN CREAM 120 GM JAR 1 APPLIC TOPICAL (12:28)
[2024-09-19 13:44] VITALS: BP 127/50; PULSE 72; RESP 16; TEMP 37.4; O2SAT 95
[2024-09-19 16:59] LABS: Glucose Point of Care 171 mg/dl (65-105)
[2024-09-19] MEDS: WARFARIN (*PBKC) 2 MG TABLET PO (17:02)
[2024-09-19] MEDS: WARFARIN (*PBKC) 5 MG TABLET PO (17:02)
[2024-09-19] MEDS: HYDROcodone/acetaminophen (*CRX) 5-325 MG TABLET 1 TAB PO (19:37)
[2024-09-19 20:40] VITALS: PULSE 72; RESP 16; O2SAT 97
[2024-09-19 21:34] LABS: Glucose Point of Care 170 mg/dl (65-105)
[2024-09-19 22:00] VITALS: BP 138/56; PULSE 77; RESP 16; TEMP 36.6; O2SAT 97
[2024-09-19 22:49] VITALS: O2SAT 97
[2024-09-20] MEDS: HYDROcodone/acetaminophen (*CRX) 5-325 MG TABLET 1 TAB PO ×3 (04:47→17:44)
[2024-09-20 04:58] VITALS: BP 122/78; PULSE 98; RESP 16; TEMP 36.6; O2SAT 93
[2024-09-20 05:40] LABS: INR 1.5; Prothrombin Time 18.3 Seconds (11.1-14.7)
[2024-09-20 05:48] LABS: Alanine Aminotransferase 11 U/L (6-35); Albumin Level 3.4 g/dL (3.5-5.1); Alkaline Phosphatase 57 U/L (38-126); Anion Gap 6 mmol/L (4-12); Aspartate Amino Transferase 26 U/L (14-36); Blood Urea Nitrogen 19 mg/dL (7-17); Calcium 8.8 mg/dL (8.4-10.2); Carbon Dioxide 27 mmol/L (22-30); Chloride 99 mmol/L (98-107); Estimated CRCL calculation 45 ml/min; Estimated Glomerular Filt Rate 48; Glucose 152 mg/dL (65-110); Magnesium 1.7 mg/dL (1.6-2.3); Potassium 3.6 mmol/L (3.4-5.0); Sodium 132 mmol/L (137-145)
[2024-09-20 07:06] LABS: Basophils Percent Auto 0.3 % (0.2-1.2); Eosinophils Absolute Auto 0.1 K/mm3 (0-0.3); Eosinophils Percent Auto 0.6 % (0-4.4); Hematocrit 33.7 % (37.0-47.0); Hemoglobin 10.9 g/dL (12.0-15.0); Immature Granulocyte Absolute 0.08 K/mm3 (0.00-0.031); Immature Granulocyte Percent A 0.8 % (0-0.5); Lymphocytes Absolute Auto 1.47 K/mm3 (0.9-3.2); Lymphocytes Percent Auto 14.1 % (18.3-44.2); Mean Corpuscular HGB Conc 32.3 g/dl (32-36); Mean Corpuscular Hemoglobin 32.4 pg (26-34); Mean Corpuscular Volume 100.3 fl (80-100); Mean Platelet Volume 11.8 fl (7.4-10.4); Monocytes Absolute Auto 1.3 K/mm3 (0.1-0.6); Monocytes Percent Auto 12.6 % (2.6-8.5); Neutrophils Absolute Auto 7.5 K/mm3 (1.3-6.7); Neutrophils Percent Auto 71.6 % (45.5-73.1); Platelet Count Result 188 k/mm3 (150-375); Red Blood Count 3.36 M/mm3 (4.2-5.4); Red Cell Distribution Width 14.4 % (11.5-14.5); White Blood Count 10.4 K/mm3 (4.5-10.0)
[2024-09-20 08:23] LABS: Glucose Point of Care 135 mg/dl (65-105)
[2024-09-20] MEDS: PIOGLITAZONE HCL 30 MG TABLET PO (09:09)
[2024-09-20] MEDS: PANTOPRAZOLE 40 MG TABLET PO (09:10)
[2024-09-20] MEDS: lisinopriL 5 MG TABLET PO (09:11)
[2024-09-20] MEDS: POTASSIUM CHLORIDE 20 MEQ ER TABLET 40 MEQ PO (09:11)
[2024-09-20] MEDS: ATORVASTATIN 20 MG TABLET PO (09:11)
[2024-09-20] MEDS: FUROSEMIDE INJ 40 MG/4 ML VIAL IV PUSH ×2 (09:15→20:56)
[2024-09-20] MEDS: EUCERIN CREAM 120 GM JAR 1 APPLIC TOPICAL (09:16)
[2024-09-20] MEDS: MAGNESIUM SULF 2 GM/WATER 50ML 2 GM/50 ML BAG IVPB (09:19)
--- NOTE | 2024-09-20 09:56 | P.PNIM_ITS ---
Progress Note: A&P Assessment and Plan (1) DVT (deep venous thrombosis): Qualifiers: Affected thrombotic vein of extremity: tibial Chronicity: acute DVT location: lower extremity Laterality: right Qualified Code(s): I82.441 - Acute embolism and thrombosis of right tibial vein Code(s): I82.409 - Acute embolism and thrombosis of unspecified deep veins of unspecified lower extremity Status: Acute Assessment and Plan: * Patient has right lower extremity posterior tibial DVT due to noncompliance with chronic anticoagulation with Coumadin. * Warfarin 7 mg PO daily. INR 1.5. * Enoxaparin 120 mg subq q12. * Monitor labs. (2) Acute on chronic diastolic CHF (congestive heart failure): Code(s): I50.33 - Acute on chronic diastolic (congestive) heart failure Status: Acute Assessment and Plan: * Furosemide 40 mg ivp q 12. * Patterson catheter, strict I&O's. * Daily weights. * Swelling in legs improving. * Monitor labs. (3) Pulmonary edema: Qualifiers: Chronicity: acute Qualified Code(s): J81.0 - Acute pulmonary edema Code(s): J81.1 - Chronic pulmonary edema Status: Acute Assessment and Plan: * Patient also has evidence of pulmonary edema on imaging and does have a history of diastolic dysfunction. * Furosemide 40 mg ivp q 12. (4) Type 2 diabetes mellitus without complications: Qualifiers: Diabetes mellitus intermediate insulin use: without intermediate school teacher use Qualified Code(s): E11.9 - Type 2 diabetes mellitus without complications Code(s): E11.9 - Type 2 diabetes mellitus without complications Status: Chronic Assessment and Plan: * Patient does have type 2 diabetes mellitus but is currently euglycemic. Will hold the patient's home metformin and resume the patient's home pioglitazone. * Will add low-dose sliding scale insulin with Accu-Cheks a.c. HS and hypoglycemia protocol as needed. (5) Noncompliance with medication regimen: Code(s): Z91.148 - Patient's other noncompliance with medication regimen for other reason Status: Acute Assessment and Plan: * Encourage compliance. (6) Morbid obesity with BMI of 45.0-49.9, adult: Code(s): E66.01 - Morbid (severe) obesity due to excess calories; Z68.42 - Body mass index [BMI] 45.0-49.9, adult Status: Acute Assessment and Plan: * 2 gram sodium consistent carb diet. * Encourage activity. Plan The importance of compliance with medication regimen was discussed in detail with patient. She states that she plans on taking her Lasix as directed on time of discharge. She reports compliance with her Coumadin although patient INR is sub therapeutic and is unclear whenever she last had her INR checked as outpatient. The importance of compliance with anticoagulation was discussed with the patient. She states she cannot afford Eliquis or Xarelto and would prefer to stay on Coumadin. Patient does have significant orthopnea likely due to a combination of heart failure and likely previously undiagnosed/untreated obstructive sleep apnea. Will order ApneaLink monitor. Subjective Date/time seen: 09/20/24 09:56 Interval history: Patient sitting up in bed. Patient reports pain in her left leg is a 10 and pain in her right leg is a 5 , constant, and aching. Patient reports that her leg swelling is improving. Patient denies chest pain, palpitations, shortness of breath, headache, dizziness, nausea, or vomiting. Patient reports that her mobility has declined over the past year, patient wanting to wait until tomorrow before agreeing to therapy. Review of Systems Review of Systems: All systems reviewed & are unremarkable except as noted in HPI and below Exam Const: General: no acute distress and uncomfortable Resp: Effort & Inspection: normal respiratory effort Auscultation: diminished lung sounds Cardio: Rate: regular rate Rhythm: regular rhythm GI: GI Palp: Yes Soft to palpation Auscultation: normal bowel sounds Other: obese Urinary Catheter: Urinary Catheter: patent and draining (charissa urine) Skin: Other: Chronic venous stasis changes bilateral lower extremities with scabbed area of the right lower leg at the level of the ankle and smaller area of scab of the lower leg just inferior to the patella, no foot wounds, generalized pallor Neuro: Speech: normal speech Extrem: General: pedal edema bilaterally 2+ Psych: Mental Status: mental status grossly normal Affect: normal affect Objective Data Vital Signs Vital Signs: Vital Signs - 24 hr 09/19/24 13:44 09/19/24 20:40 09/19/24 22:00 Temperature 99.3 F 97.8 F Pulse Rate 72 72 77 Respiratory Rate 16 16 16 Blood Pressure 127/50 L 138/56 L Pulse Oximetry 95 97 97 Oxygen Delivery Room Air 09/19/24 22:49 09/20/24 04:58 Temperature 97.8 F Pulse Rate 98 Respiratory Rate 16 Blood Pressure 122/78 Pulse Oximetry 97 93 Oxygen Delivery Room Air Intake/Output Intake/Output: Intake & Output 09/17/24 09/18/24 09/19/24 09/20/24 23:59 23:59 23:59 23:59 Intake Total 850 490 Output Total 5250 850 Balance -4400 -360 Meds/Results Medications: Active Medications Generic Name Dose Route Start Last Admin Trade Name Freq PRN Reason Stop Dose Admin Acetaminophen 650 mg 09/18/24 17:39 Acetaminophen 325 Mg Tablet PO Q4H PRN Mild Pain (1-3) or Fever Hydrocodone Bitart/Acetaminophen 1 tab 09/18/24 17:39 09/20/24 09:16 Hydrocodone/Acetaminophen (*Crx) 5-325 Mg Tablet PO 1 tab Q4H PRN Administration Pain Rated 4-6 Atorvastatin Calcium 20 mg 09/19/24 09:00 09/20/24 09:11 Atorvastatin 20 Mg Tablet PO 20 mg DAILY VALENTIN Administration Dextrose 12.5 gm 09/18/24 21:00 Dextrose 50% 25 Gm/50 Ml Syringe IV PUSH PRN PRN Hypoglycemia Protocol Furosemide 40 mg 09/18/24 21:00 09/20/24 09:15 Furosemide Inj 40 Mg/4 Ml Vial IV PUSH 40 mg Q12HR VALENTIN Administration Glucagon 1 mg 09/18/24 21:00 Glucagon For Inj 1 Mg Vial IM PRN PRN Hypoglycemia Protocol Glucose 15 gm 09/18/24 21:00 Glucose Oral Gel 15 Gm Of Glucse In 37.5 Gm Tube PO PRN PRN Hypoglycemia Protocol Dextrose 1,000 mls @ 100 mls/hr 09/18/24 21:00 Dextrose 5% 1,000 Ml IVPB PRN PRN Hypoglycemia Protocol Insulin Aspart 2 - 5 units 09/19/24 08:00 09/20/24 09:08 Insulin Aspart (*Bkc) 100 Units/Ml SUB-Q Not Given TIDWM [facility]IN Protocol Insulin Aspart 1 - 2 units 09/18/24 21:00 09/19/24 20:45 Insulin Aspart (*Bkc) 100 Units/Ml SUB-Q Not Given HS [facility]IN Protocol Lisinopril 5 mg 09/19/24 09:00 09/20/24 09:11 Lisinopril 5 Mg Tablet PO 5 mg QAM VALENTIN Administration Multi-Ingred Cream/Lotion/Oil/Oint 1 applic 09/19/24 12:05 09/20/24 09:16 Eucerin Cream 120 Gm Jar TOPICAL 1 applic DAILY VALENTIN Administration Ondansetron HCl 4 mg 09/18/24 17:39 Ondansetron Inj 4 Mg/2 Ml Vial IV PUSH Q4H PRN Nausea Pantoprazole Sodium 40 mg 09/19/24 09:00 09/20/24 09:10 Pantoprazole 40 Mg Tablet PO 40 mg DAILY VALENTIN Administration Pioglitazone HCl 30 mg 09/19/24 09:00 09/20/24 09:09 Pioglitazone Hcl 30 Mg Tablet PO 30 mg DAILY VALENTIN Administration Warfarin Sodium 5 mg 09/19/24 17:00 09/19/24 17:02 Warfarin (*Pbkc) 5 Mg Tablet PO 5 mg DAILY@1700 VALENTIN Administration Warfarin Sodium 2 mg 09/19/24 17:00 09/19/24 17:02 Warfarin (*Pbkc) 2 Mg Tablet PO 2 mg DAILY@1700 VALENTIN Administration Radiology Results: ITS Impressions Chest X-Ray 09/18/24 15:03 IMPRESSION: Subsegmental right basilar atelectasis/consolidation. Mild diffuse interstitial edema versus chronic interstitial change Venous Doppler Study 09/18/24 16:26 IMPRESSION: Inadequate visualization of multiple lower extremity veins bilaterally as detailed above. DVT visualized in the right posterior tibial vein. No other thrombus detected within the adequately visualized veins. Labs Labs: Laboratory Results - last 24 hr 09/19/24 09/19/24 09/19/24 11:47 16:49 20:45 WBC RBC Hgb Hct MCV MCH MCHC RDW Plt Count MPV Immature Gran % (Auto) Neut % (Auto) Lymph % (Auto) [place] % (Auto) Eos % (Auto) Baso % (Auto) Lymph # (Auto) [place] # (Auto) Eos # (Auto) Baso # (Auto) Abs Immat Gran (auto) Absolute Neuts (auto) Absolute Nucleated RBC Nucleated RBC % PT INR Sodium Potassium Chloride Carbon Dioxide Anion Gap BUN Creatinine Estim Creat Clear Calc Estimated GFR Glucose POC Capillary Glucose 124 H 171 H 170 H Calcium Magnesium Total Bilirubin AST ALT Alkaline Phosphatase Total Protein Albumin 09/20/24 09/20/24 09/20/24 05:22 06:50 08:19 WBC 10.4 H RBC 3.36 L Hgb 10.9 L Hct 33.7 L MCV 100.3 H MCH 32.4 MCHC 32.3 RDW 14.4 Plt Count 188 MPV 11.8 H Immature Gran % (Auto) 0.8 H Neut % (Auto) 71.6 Lymph % (Auto) 14.1 L [place] % (Auto) 12.6 H Eos % (Auto) 0.6 Baso % (Auto) 0.3 Lymph # (Auto) 1.47 [place] # (Auto) 1.3 H Eos # (Auto) 0.1 Baso # (Auto) 0.0 Abs Immat Gran (auto) 0.08 H Absolute Neuts (auto) 7.5 H Absolute Nucleated RBC 0.000 Nucleated RBC % 0.0 PT 18.3 H INR 1.5 Sodium 132 L Potassium 3.6 Chloride 99 Carbon Dioxide 27 Anion Gap 6 BUN 19 H Creatinine 1.09 H Estim Creat Clear Calc 45 Estimated GFR 48 L Glucose 152 H POC Capillary Glucose 135 H Calcium 8.8 Magnesium 1.7 Total Bilirubin 1.0 AST 26 ALT 11 Alkaline Phosphatase 57 Total Protein 6.0 L Albumin 3.4 L Quality VTE Prophylaxis VTE prophylaxis: pharmacologic ordered (Therapeutic Lovenox and Coumadin)
[2024-09-20 12:21] LABS: Glucose Point of Care 165 mg/dl (65-105)
[2024-09-20 14:00] VITALS: BP 129/71; PULSE 92; RESP 16; TEMP 37; O2SAT 94
[2024-09-20] MEDS: ENOXAPARIN 120 MG/0.8 ML SYRINGE SUB-Q (14:28)
[2024-09-20] MEDS: WARFARIN (*PBKC) 5 MG TABLET PO (17:42)
[2024-09-20] MEDS: WARFARIN (*PBKC) 2 MG TABLET PO (17:42)
[2024-09-20 17:43] LABS: Glucose Point of Care 163 mg/dl (65-105)
[2024-09-20 20:50] VITALS: PULSE 92; RESP 18; O2SAT 94
[2024-09-20 21:18] VITALS: BP 136/90; PULSE 92; RESP 18; TEMP 36.8; O2SAT 94
[2024-09-20 21:18] LABS: Glucose Point of Care 160 mg/dl (65-105)
[2024-09-21] MEDS: ENOXAPARIN 120 MG/0.8 ML SYRINGE SUB-Q ×2 (02:24→12:55)
[2024-09-21] MEDS: HYDROcodone/acetaminophen (*CRX) 5-325 MG TABLET 1 TAB PO ×2 (03:08→10:32)
[2024-09-21 06:00] VITALS: BP 143/55; PULSE 80; RESP 18; TEMP 36.2; O2SAT 95
[2024-09-21 06:12] LABS: Basophils Percent Auto 0.3 % (0.2-1.2); Eosinophils Percent Auto 0.3 % (0-4.4); Hematocrit 33.6 % (37.0-47.0); Hemoglobin 10.7 g/dL (12.0-15.0); Immature Granulocyte Absolute 0.08 K/mm3 (0.00-0.031); Immature Granulocyte Percent A 0.7 % (0-0.5); Lymphocytes Absolute Auto 1.51 K/mm3 (0.9-3.2); Lymphocytes Percent Auto 12.4 % (18.3-44.2); Mean Corpuscular HGB Conc 31.8 g/dl (32-36); Mean Corpuscular Hemoglobin 31.8 pg (26-34); Mean Platelet Volume 11.9 fl (7.4-10.4); Monocytes Absolute Auto 1.6 K/mm3 (0.1-0.6); Neutrophils Absolute Auto 8.9 K/mm3 (1.3-6.7); Neutrophils Percent Auto 73.3 % (45.5-73.1); Platelet Count Result 195 k/mm3 (150-375); Red Blood Count 3.36 M/mm3 (4.2-5.4); Red Cell Distribution Width 14.5 % (11.5-14.5); White Blood Count 12.1 K/mm3 (4.5-10.0)
[2024-09-21 06:20] LABS: Alanine Aminotransferase 12 U/L (6-35); Albumin Level 2.9 g/dL (3.5-5.1); Alkaline Phosphatase 54 U/L (38-126); Anion Gap 8 mmol/L (4-12); Aspartate Amino Transferase 34 U/L (14-36); Bilirubin,Total 0.8 mg/dL (0.2-1.3); Blood Urea Nitrogen 25 mg/dL (7-17); Calcium 8.1 mg/dL (8.4-10.2); Carbon Dioxide 29 mmol/L (22-30); Chloride 94 mmol/L (98-107); Estimated CRCL calculation 49 ml/min; Estimated Glomerular Filt Rate 53; Glucose 146 mg/dL (65-110); Prothrombin Time 23.5 Seconds (11.1-14.7); Sodium 131 mmol/L (137-145)
[2024-09-21 06:23] LABS: Magnesium 1.9 mg/dL (1.6-2.3)
[2024-09-21 08:23] LABS: Glucose Point of Care 150 mg/dl (65-105)
[2024-09-21] MEDS: lisinopriL 5 MG TABLET PO (10:27)
[2024-09-21] MEDS: ATORVASTATIN 20 MG TABLET PO (10:27)
[2024-09-21] MEDS: PIOGLITAZONE HCL 30 MG TABLET PO (10:27)
[2024-09-21] MEDS: PANTOPRAZOLE 40 MG TABLET PO (10:27)
[2024-09-21] MEDS: EUCERIN CREAM 120 GM JAR 1 APPLIC TOPICAL (10:28)
[2024-09-21] MEDS: FUROSEMIDE INJ 40 MG/4 ML VIAL IV PUSH ×2 (10:37→20:42)
--- NOTE | 2024-09-21 11:18 | PM.IMPN ---
Progress Note: A&P Assessment and Plan (1) DVT (deep venous thrombosis): Qualifiers: Affected thrombotic vein of extremity: tibial Chronicity: acute DVT location: lower extremity Laterality: right Qualified Code(s): I82.441 - Acute embolism and thrombosis of right tibial vein Code(s): I82.409 - Acute embolism and thrombosis of unspecified deep veins of unspecified lower extremity Status: Acute Assessment and Plan: Patient has right lower extremity posterior tibial DVT due to noncompliance with chronic anticoagulation with Coumadin. Warfarin 7 mg PO daily. INR 2.0. Enoxaparin 120 mg subq q12. Monitor labs. (2) Acute on chronic diastolic CHF (congestive heart failure): Code(s): I50.33 - Acute on chronic diastolic (congestive) heart failure Status: Acute Assessment and Plan: Furosemide 40 mg ivp q 12. Patterson catheter, strict I&O's. Daily weights. Swelling in legs improving. Monitor labs. (3) Pulmonary edema: Qualifiers: Chronicity: acute Qualified Code(s): J81.0 - Acute pulmonary edema Code(s): J81.1 - Chronic pulmonary edema Status: Acute Assessment and Plan: Patient also has evidence of pulmonary edema on imaging and does have a history of diastolic dysfunction. Furosemide 40 mg ivp q 12. 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 Will hold the patient's home metformin and resume the patient's home pioglitazone. Will add low-dose sliding scale insulin with Accu-Cheks a.c. HS and hypoglycemia protocol as needed. (5) Noncompliance with medication regimen: Code(s): Z91.148 - Patient's other noncompliance with medication regimen for other reason Status: Acute Assessment and Plan: Encourage compliance. (6) Morbid obesity with BMI of 45.0-49.9, adult: Code(s): E66.01 - Morbid (severe) obesity due to excess calories; Z68.42 - Body mass index [BMI] 45.0-49.9, adult Status: Acute Assessment and Plan: 2 gram sodium consistent carb diet. Encourage activity. (7) Neck pain: Code(s): M54.2 - Cervicalgia Status: Acute Assessment and Plan: Pain control Positioning. Plan The importance of compliance with medication regimen was discussed in detail with patient. She states that she plans on taking her Lasix as directed on time of discharge. She reports compliance with her Coumadin although patient INR is sub therapeutic and is unclear whenever she last had her INR checked as outpatient. The importance of compliance with anticoagulation was discussed with the patient. She states she cannot afford Eliquis or Xarelto and would prefer to stay on Coumadin. Patient does have significant orthopnea likely due to a combination of heart failure and likely previously undiagnosed/untreated obstructive sleep apnea. Spoke with Dr. Schwartz in Pulmonology on 09/2024 with the following recommendations: blood gas on room air, TSH in the AM, apnea link on 2 liters overnight, and sleep study outpatient. Subjective Date/time seen: 09/21/24 11:18 Interval history: Patient sitting up in bed. Patient reports pain in neck is a 3 , constant, and aching. Patient denies pain in legs at present. Patient denies denies chest pain, palpitations, shortness of breath, headache, dizziness, nausea, or vomiting. Review of Systems Review of Systems: All systems reviewed & are unremarkable except as noted in HPI and below Exam Const: General: no acute distress and uncomfortable Resp: Effort & Inspection: normal respiratory effort Auscultation: diminished lung sounds GI: GI Palp: Yes Soft to palpation Auscultation: normal bowel sounds Other: obese Urinary Catheter: Urinary Catheter: patent and draining (charissa urine) Skin: Other: Chronic venous stasis changes bilateral lower extremities with scabbed area of the right lower leg at the level of the ankle and smaller area of scab of the lower leg just inferior to the patella, no foot wounds, generalized pallor Neuro: Speech: normal speech Extrem: General: pedal edema bilaterally 1+ Psych: Mental Status: mental status grossly normal Affect: normal affect Objective Data Vital Signs Vital Signs: Vital Signs - 24 hr 09/20/24 14:00 09/20/24 20:50 09/20/24 21:18 Temperature 98.6 F 98.3 F Pulse Rate 92 92 92 Respiratory Rate 16 18 18 Blood Pressure 129/71 136/90 Pulse Oximetry 94 94 94 Oxygen Delivery Room Air 09/21/24 06:00 Temperature 97.2 F L Pulse Rate 80 Respiratory Rate 18 Blood Pressure 143/55 H Pulse Oximetry 95 Oxygen Delivery Intake/Output Intake/Output: Intake & Output 09/18/24 09/19/24 09/20/24 09/21/24 23:59 23:59 23:59 23:59 Intake Total 850 780 540 Output Total 5250 1300 700 Balance -4400 -520 -160 Meds/Results Medications: Active Medications Generic Name Dose Route Start Last Admin Trade Name Freq PRN Reason Stop Dose Admin Acetaminophen 650 mg 09/18/24 17:39 Acetaminophen 325 Mg Tablet PO Q4H PRN Mild Pain (1-3) or Fever Hydrocodone Bitart/Acetaminophen 1 tab 09/18/24 17:39 09/21/24 10:32 Hydrocodone/Acetaminophen (*Crx) 5-325 Mg Tablet PO 1 tab Q4H PRN Administration Pain Rated 4-6 Atorvastatin Calcium 20 mg 09/19/24 09:00 09/21/24 10:27 Atorvastatin 20 Mg Tablet PO 20 mg DAILY VALENTIN Administration Dextrose 12.5 gm 09/18/24 21:00 Dextrose 50% 25 Gm/50 Ml Syringe IV PUSH PRN PRN Hypoglycemia Protocol Enoxaparin Sodium 120 mg 09/20/24 13:00 09/21/24 02:24 Enoxaparin 120 Mg/0.8 Ml Syringe SUB-Q 120 mg Q12H VALENTIN Administration Furosemide 40 mg 09/18/24 21:00 09/21/24 10:37 Furosemide Inj 40 Mg/4 Ml Vial IV PUSH 40 mg Q12HR VALENTIN Administration Glucagon 1 mg 09/18/24 21:00 Glucagon For Inj 1 Mg Vial IM PRN PRN Hypoglycemia Protocol Glucose 15 gm 09/18/24 21:00 Glucose Oral Gel 15 Gm Of Glucse In 37.5 Gm Tube PO PRN PRN Hypoglycemia Protocol Dextrose 1,000 mls @ 100 mls/hr 09/18/24 21:00 Dextrose 5% 1,000 Ml IVPB PRN PRN Hypoglycemia Protocol Insulin Aspart 2 - 5 units 09/19/24 08:00 09/21/24 10:24 Insulin Aspart (*Bkc) 100 Units/Ml SUB-Q Not Given TIDWM VALENTIN Protocol Insulin Aspart 1 - 2 units 09/18/24 21:00 09/20/24 21:09 Insulin Aspart (*Bkc) 100 Units/Ml SUB-Q Not Given HS [facility] Protocol Lisinopril 5 mg 09/19/24 09:00 09/21/24 10:27 Lisinopril 5 Mg Tablet PO 5 mg QAM VALENTIN Administration Multi-Ingred Cream/Lotion/Oil/Oint 1 applic 09/19/24 12:05 09/21/24 10:28 Eucerin Cream 120 Gm Jar TOPICAL 1 applic DAILY VALENTIN Administration Ondansetron HCl 4 mg 09/18/24 17:39 Ondansetron Inj 4 Mg/2 Ml Vial IV PUSH Q4H PRN Nausea Pantoprazole Sodium 40 mg 09/19/24 09:00 09/21/24 10:27 Pantoprazole 40 Mg Tablet PO 40 mg DAILY VALENTIN Administration Pioglitazone HCl 30 mg 09/19/24 09:00 09/21/24 10:27 Pioglitazone Hcl 30 Mg Tablet PO 30 mg DAILY VALENTIN Administration Warfarin Sodium 5 mg 09/19/24 17:00 09/20/24 17:42 Warfarin (*Pbkc) 5 Mg Tablet PO 5 mg DAILY@1700 [facility]IN Administration Warfarin Sodium 2 mg 09/19/24 17:00 09/20/24 17:42 Warfarin (*Pbkc) 2 Mg Tablet PO 2 mg DAILY@1700 [facility]IN Administration Radiology Results: ITS Impressions Chest X-Ray 09/18/24 15:03 IMPRESSION: Subsegmental right basilar atelectasis/consolidation. Mild diffuse interstitial edema versus chronic interstitial change Venous Doppler Study 09/18/24 16:26 IMPRESSION: Inadequate visualization of multiple lower extremity veins bilaterally as detailed above. DVT visualized in the right posterior tibial vein. No other thrombus detected within the adequately visualized veins. Labs Labs: Laboratory Results - last 24 hr 09/20/24 09/20/24 09/20/24 12:19 17:40 21:14 WBC RBC Hgb Hct MCV MCH MCHC RDW Plt Count MPV Immature Gran % (Auto) Neut % (Auto) Lymph % (Auto) [place] % (Auto) Eos % (Auto) Baso % (Auto) Lymph # (Auto) [place] # (Auto) Eos # (Auto) Baso # (Auto) Abs Immat Gran (auto) Absolute Neuts (auto) Absolute Nucleated RBC Nucleated RBC % PT INR Sodium Potassium Chloride Carbon Dioxide Anion Gap BUN Creatinine Estim Creat Clear Calc Estimated GFR Glucose POC Capillary Glucose 165 H 163 H 160 H Calcium Magnesium Total Bilirubin AST ALT Alkaline Phosphatase Total Protein Albumin 09/21/24 09/21/24 05:43 08:10 WBC 12.1 H RBC 3.36 L Hgb 10.7 L Hct 33.6 L MCV 100.0 MCH 31.8 MCHC 31.8 L RDW 14.5 Plt Count 195 MPV 11.9 H Immature Gran % (Auto) 0.7 H Neut % (Auto) 73.3 H Lymph % (Auto) 12.4 L [place] % (Auto) 13.0 H Eos % (Auto) 0.3 Baso % (Auto) 0.3 Lymph # (Auto) 1.51 [place] # (Auto) 1.6 H Eos # (Auto) 0.0 Baso # (Auto) 0.0 Abs Immat Gran (auto) 0.08 H Absolute Neuts (auto) 8.9 H Absolute Nucleated RBC 0.000 Nucleated RBC % 0.0 PT 23.5 H D INR 2.0 Sodium 131 L Potassium 4.0 Chloride 94 L Carbon Dioxide 29 Anion Gap 8 BUN 25 H Creatinine 1.00 Estim Creat Clear Calc 49 Estimated GFR 53 L Glucose 146 H POC Capillary Glucose 150 H Calcium 8.1 L Magnesium 1.9 Total Bilirubin 0.8 AST 34 ALT 12 Alkaline Phosphatase 54 Total Protein 6.0 L Albumin 2.9 L Quality VTE Prophylaxis VTE prophylaxis: pharmacologic ordered
[2024-09-21] MEDS: guaiFENesin 12 HR 600 MG TABCR PO ×2 (11:55→20:42)
[2024-09-21 12:15] LABS: Glucose Point of Care 181 mg/dl (65-105)
--- NOTE | 2024-09-21 13:02 | PCOTNOTE ---
Attempted to see pt. for occupational therapy evaluation. Pt. declines to participate in therapy services on this date. States that she told the provider she would participated tomorrow , which is documented in providers not yesterday. Nursing aware.
[2024-09-21 13:46] VITALS: BP 102/50; PULSE 70; RESP 16; TEMP 37; O2SAT 95
[2024-09-21] MEDS: AMOXICILLIN/CLAVULANATE K 875-125 MG TAB 1 TABLET PO ×2 (14:39→20:42)
[2024-09-21 16:14] LABS: Alveolar/Arterial O2 Gradient 45.9 mmHg; Base Excess ABG 4.1 mEq/l (+/-2.0); Fractional Inspired Oxygen 21 %; HCO3 ABG 26.7 mEq/l (22.0-26.0); Oxygen Content ABG 15.7 %vol (16.0-22.0); Oxygen Saturation ABG 94.7 % (95.0-100.0); Oxyhemoglobin 92.9 % THb (90.0-100.0); PCO2 ABG 33.1 mmHg (35.0-45.0); PO2 ABG 64.2 mmHg (80.0-100.0); PO2 FiO2 Ratio Arterial Blood 3.06 %
[2024-09-21 16:15] LABS: Device ROOM AIR; Modified Allen's Test Pass; Site Drawn LEFT RADIAL; pH ABG 7.524 (7.350-7.450)
[2024-09-21 17:05] LABS: Glucose Point of Care 131 mg/dl (65-105)
[2024-09-21] MEDS: WARFARIN (*PBKC) 5 MG TABLET PO (17:26)
[2024-09-21] MEDS: WARFARIN (*PBKC) 2 MG TABLET PO (17:26)
[2024-09-21 19:43] VITALS: BP 121/72; PULSE 86; RESP 16; TEMP 36.9; O2SAT 90
[2024-09-21 21:09] LABS: Glucose Point of Care 192 mg/dl (65-105)
--- NOTE | 2024-09-21 21:30 | PCRCNOTE ---
Overnight oximetry not administered due to finger probes being unavailable.
[2024-09-22] MEDS: ENOXAPARIN 120 MG/0.8 ML SYRINGE SUB-Q ×2 (00:22→12:51)
[2024-09-22 05:25] VITALS: BP 119/84; PULSE 90; RESP 16; TEMP 37; O2SAT 94
[2024-09-22 05:45] LABS: Basophils Percent Auto 0.3 % (0.2-1.2); Eosinophils Absolute Auto 0.1 K/mm3 (0-0.3); Eosinophils Percent Auto 0.9 % (0-4.4); Hematocrit 31.6 % (37.0-47.0); Hemoglobin 10.4 g/dL (12.0-15.0); Immature Granulocyte Absolute 0.07 K/mm3 (0.00-0.031); Immature Granulocyte Percent A 0.6 % (0-0.5); Lymphocytes Absolute Auto 1.53 K/mm3 (0.9-3.2); Lymphocytes Percent Auto 13.5 % (18.3-44.2); Mean Corpuscular HGB Conc 32.9 g/dl (32-36); Mean Corpuscular Hemoglobin 32.1 pg (26-34); Mean Corpuscular Volume 97.5 fl (80-100); Monocytes Absolute Auto 1.3 K/mm3 (0.1-0.6); Monocytes Percent Auto 11.8 % (2.6-8.5); Neutrophils Absolute Auto 8.3 K/mm3 (1.3-6.7); Neutrophils Percent Auto 72.9 % (45.5-73.1); Platelet Count Result 196 k/mm3 (150-375); Red Blood Count 3.24 M/mm3 (4.2-5.4); Red Cell Distribution Width 14.2 % (11.5-14.5); White Blood Count 11.3 K/mm3 (4.5-10.0)
[2024-09-22 05:55] LABS: INR 2.4; Prothrombin Time 26.4 Seconds (11.1-14.7)
[2024-09-22 05:59] LABS: Alanine Aminotransferase 11 U/L (6-35); Albumin Level 2.7 g/dL (3.5-5.1); Alkaline Phosphatase 53 U/L (38-126); Anion Gap 7 mmol/L (4-12); Aspartate Amino Transferase 17 U/L (14-36); Bilirubin,Total 0.7 mg/dL (0.2-1.3); Blood Urea Nitrogen 30 mg/dL (7-17); Carbon Dioxide 31 mmol/L (22-30); Chloride 93 mmol/L (98-107); Estimated CRCL calculation 41 ml/min; Estimated Glomerular Filt Rate 42; Glucose 135 mg/dL (65-110); Magnesium 1.8 mg/dL (1.6-2.3); Potassium 3.9 mmol/L (3.4-5.0); Sodium 131 mmol/L (137-145)
[2024-09-22 06:30] LABS: Thyroid Stimulating Hormone Reflex 0.879 uIU/mL (0.465-4.68)
[2024-09-22 08:23] LABS: Glucose Point of Care 126 mg/dl (65-105)
[2024-09-22] MEDS: AMOXICILLIN/CLAVULANATE K 875-125 MG TAB 1 TABLET PO ×2 (10:16→20:21)
[2024-09-22] MEDS: lisinopriL 5 MG TABLET PO (10:16)
[2024-09-22] MEDS: HYDROcodone/acetaminophen (*CRX) 5-325 MG TABLET 1 TAB PO ×2 (10:16→17:32)
[2024-09-22] MEDS: PANTOPRAZOLE 40 MG TABLET PO (10:17)
[2024-09-22] MEDS: FUROSEMIDE INJ 40 MG/4 ML VIAL IV PUSH ×2 (10:17→20:21)
[2024-09-22] MEDS: ATORVASTATIN 20 MG TABLET PO (10:17)
[2024-09-22] MEDS: PIOGLITAZONE HCL 30 MG TABLET PO (10:17)
[2024-09-22] MEDS: guaiFENesin 12 HR 600 MG TABCR PO ×2 (10:17→20:21)
[2024-09-22] MEDS: EUCERIN CREAM 120 GM JAR 1 APPLIC TOPICAL (10:18)
--- NOTE | 2024-09-22 11:13 | P.PNIM_ITS ---
Progress Note: A&P Assessment and Plan (1) DVT (deep venous thrombosis): Qualifiers: Affected thrombotic vein of extremity: tibial Chronicity: acute DVT location: lower extremity Laterality: right Qualified Code(s): I82.441 - Acute embolism and thrombosis of right tibial vein Code(s): I82.409 - Acute embolism and thrombosis of unspecified deep veins of unspecified lower extremity Status: Acute Assessment and Plan: * Patient has right lower extremity posterior tibial DVT due to noncompliance with chronic anticoagulation with Coumadin. * Warfarin 7 mg PO daily. INR 2.4. * Monitor labs. (2) Acute on chronic diastolic CHF (congestive heart failure): Code(s): I50.33 - Acute on chronic diastolic (congestive) heart failure Status: Acute Assessment and Plan: * Furosemide 40 mg ivp q 12. * Patterson catheter, strict I&O's. * Daily weights. * Swelling in legs improving. * PT/OT * Monitor labs. (3) Pulmonary edema: Qualifiers: Chronicity: acute Qualified Code(s): J81.0 - Acute pulmonary edema Code(s): J81.1 - Chronic pulmonary edema Status: Acute Assessment and Plan: * Patient also has evidence of pulmonary edema on imaging and does have a history of diastolic dysfunction. * Furosemide 40 mg ivp q 12. (4) UTI (urinary tract infection): Code(s): N39.0 - Urinary tract infection, site not specified Status: Acute Assessment and Plan: * Urine culture grew Klebsiella pneumoniae. * WBC 11.3. * Augmentin 875-125 mg 1 tab PO q 12. * Encourage water to drink to flush kidneys. (5) Type 2 diabetes mellitus with diabetic polyneuropathy: Code(s): E11.42 - Type 2 diabetes mellitus with diabetic polyneuropathy Status: Acute Assessment and Plan: * Patient does have type 2 diabetes mellitus but is currently euglycemic. Will hold the patient's home metformin and resume the patient's home pioglitazone. * Will add low-dose sliding scale insulin with Accu-Cheks a.c. HS and hypoglycemia protocol as needed. * Add Gabapentin 100 mg PO TID. (6) Noncompliance with medication regimen: Code(s): Z91.148 - Patient's other noncompliance with medication regimen for other reason Status: Acute Assessment and Plan: * Encourage compliance. (7) Morbid obesity with BMI of 45.0-49.9, adult: Code(s): E66.01 - Morbid (severe) obesity due to excess calories; Z68.42 - Body mass index [BMI] 45.0-49.9, adult Status: Acute Assessment and Plan: * 2 gram sodium consistent carb diet. * Encourage activity. Plan The importance of compliance with medication regimen was discussed in detail with patient. She states that she plans on taking her Lasix as directed on time of discharge. She reports compliance with her Coumadin although patient INR is sub therapeutic and is unclear whenever she last had her INR checked as outpatient. The importance of compliance with anticoagulation was discussed with the patient. She states she cannot afford Eliquis or Xarelto and would prefer to stay on Coumadin. Patient does have significant orthopnea likely due to a combination of heart failure and likely previously undiagnosed/untreated obstructive sleep apnea. Spoke with Dr. Schwartz in Pulmonology on 09/2024 with the following recommendations: blood gas on room air, TSH in the AM, apnea link on 2 liters overnight, and sleep study outpatient. Subjective Date/time seen: 09/22/24 11:13 Interval history: Patient sitting up in bed. Patient reports that pain in bilateral legs is an 11 , constant, and aching. Patient reports that she used to take Gabapentin for neuropathy. Patient denies denies chest pain, palpitations, shortness of breath, headache, dizziness, nausea, or vomiting. Review of Systems Review of Systems: All systems reviewed & are unremarkable except as noted in HPI and below Exam Const: General: no acute distress and uncomfortable Resp: Effort & Inspection: normal respiratory effort Auscultation: diminished lung sounds Cardio: Rate: regular rate Rhythm: regular rhythm GI: GI Palp: Yes Soft to palpation Auscultation: normal bowel sounds Other: obese Urinary Catheter: Urinary Catheter: patent and draining (charissa) Skin: Other: Chronic venous stasis changes bilateral lower extremities with scabbed area of the right lower leg at the level of the ankle and smaller area of scab of the lower leg just inferior to the patella, no foot wounds, generalized pallor Neuro: Speech: normal speech Extrem: General: pedal edema bilaterally 1+ Psych: Mental Status: mental status grossly normal Affect: normal affect Objective Data Vital Signs Vital Signs: Vital Signs - 24 hr 09/21/24 13:46 09/21/24 19:43 09/21/24 20:22 Temperature 98.6 F 98.4 F Pulse Rate 70 86 Respiratory Rate 16 16 Blood Pressure 102/50 L 121/72 Pulse Oximetry 95 90 Oxygen Delivery Room Air 09/22/24 05:25 Temperature 98.6 F Pulse Rate 90 Respiratory Rate 16 Blood Pressure 119/84 Pulse Oximetry 94 Oxygen Delivery Intake/Output Intake/Output: Intake & Output 09/19/24 09/20/24 09/21/24 09/22/24 23:59 23:59 23:59 23:59 Intake Total 562 902 5302 540 Output Total 5250 1300 1250 800 Balance -4400 -520 350 -260 Meds/Results Medications: Active Medications Generic Name Dose Route Start Last Admin Trade Name Freq PRN Reason Stop Dose Admin Acetaminophen 650 mg 09/18/24 17:39 Acetaminophen 325 Mg Tablet PO Q4H PRN Mild Pain (1-3) or Fever Hydrocodone Bitart/Acetaminophen 1 tab 09/18/24 17:39 09/22/24 10:16 Hydrocodone/Acetaminophen (*Crx) 5-325 Mg Tablet PO 1 tab Q4H PRN Administration Pain Rated 4-6 Amoxicillin/Clavulanate Potassium 1 tablet 09/21/24 14:00 09/22/24 10:16 Amoxicillin/Clavulanate K 875-125 Mg Tab PO 09/27/24 21:01 1 tablet Q12HR VALENTIN Administration Atorvastatin Calcium 20 mg 09/19/24 09:00 09/22/24 10:17 Atorvastatin 20 Mg Tablet PO 20 mg DAILY VALENTIN Administration Dextrose 12.5 gm 09/18/24 21:00 Dextrose 50% 25 Gm/50 Ml Syringe IV PUSH PRN PRN Hypoglycemia Protocol Enoxaparin Sodium 120 mg 09/20/24 13:00 09/22/24 00:22 Enoxaparin 120 Mg/0.8 Ml Syringe SUB-Q 120 mg Q12H VALENTIN Administration Furosemide 40 mg 09/18/24 21:00 09/22/24 10:17 Furosemide Inj 40 Mg/4 Ml Vial IV PUSH 40 mg Q12HR VALENTIN Administration Glucagon 1 mg 09/18/24 21:00 Glucagon For Inj 1 Mg Vial IM PRN PRN Hypoglycemia Protocol Glucose 15 gm 09/18/24 21:00 Glucose Oral Gel 15 Gm Of Glucse In 37.5 Gm Tube PO PRN PRN Hypoglycemia Protocol Guaifenesin 600 mg 09/21/24 11:20 09/22/24 10:17 Guaifenesin 12 Hr 600 Mg Tabcr PO 09/28/24 11:19 600 mg Q12HR VALENTIN Administration Dextrose 1,000 mls @ 100 mls/hr 09/18/24 21:00 Dextrose 5% 1,000 Ml IVPB PRN PRN Hypoglycemia Protocol Insulin Aspart 2 - 5 units 09/19/24 08:00 09/22/24 10:18 Insulin Aspart (*Bkc) 100 Units/Ml SUB-Q Not Given TIDWM VALENTIN Protocol Insulin Aspart 1 - 2 units 09/18/24 21:00 09/21/24 20:50 Insulin Aspart (*Bkc) 100 Units/Ml SUB-Q Not Given HS [facility] Protocol Lisinopril 5 mg 09/19/24 09:00 09/22/24 10:16 Lisinopril 5 Mg Tablet PO 5 mg QAM VALENTIN Administration Multi-Ingred Cream/Lotion/Oil/Oint 1 applic 09/19/24 12:05 09/22/24 10:18 Eucerin Cream 120 Gm Jar TOPICAL 1 applic DAILY VALENTIN Administration Ondansetron HCl 4 mg 09/18/24 17:39 Ondansetron Inj 4 Mg/2 Ml Vial IV PUSH Q4H PRN Nausea Pantoprazole Sodium 40 mg 09/19/24 09:00 09/22/24 10:17 Pantoprazole 40 Mg Tablet PO 40 mg DAILY VALENTIN Administration Pioglitazone HCl 30 mg 09/19/24 09:00 09/22/24 10:17 Pioglitazone Hcl 30 Mg Tablet PO 30 mg DAILY VALENTIN Administration Warfarin Sodium 5 mg 09/19/24 17:00 09/21/24 17:26 Warfarin (*Pbkc) 5 Mg Tablet PO 5 mg DAILY@1700 VALENTIN Administration Warfarin Sodium 2 mg 09/19/24 17:00 09/21/24 17:26 Warfarin (*Pbkc) 2 Mg Tablet PO 2 mg DAILY@1700 [facility] Administration Radiology Results: ITS Impressions Chest X-Ray 09/18/24 15:03 IMPRESSION: Subsegmental right basilar atelectasis/consolidation. Mild diffuse interstitial edema versus chronic interstitial change Venous Doppler Study 09/18/24 16:26 IMPRESSION: Inadequate visualization of multiple lower extremity veins bilaterally as detailed above. DVT visualized in the right posterior tibial vein. No other thrombus detected within the adequately visualized veins. Labs Labs: Laboratory Results - last 24 hr 09/21/24 09/21/24 09/21/24 12:00 16:02 16:48 WBC RBC Hgb Hct MCV MCH MCHC RDW Plt Count MPV Immature Gran % (Auto) Neut % (Auto) Lymph % (Auto) [place] % (Auto) Eos % (Auto) Baso % (Auto) Lymph # (Auto) [place] # (Auto) Eos # (Auto) Baso # (Auto) Abs Immat Gran (auto) Absolute Neuts (auto) Absolute Nucleated RBC Nucleated RBC % PT INR Puncture Site Left radial ABG pH 7.524 H* ABG pCO2 33.1 L ABG pO2 64.2 L ABG PO2/FiO2 Ratio 3.06 ABG HCO3 26.7 H ABG O2 Saturation 94.7 L ABG O2 Content 15.7 L ABG Base Excess 4.1 A-a Gradient 45.9 Oxyhemoglobin 92.9 Total Hemoglobin 12.0 O2 Delivery Device Room air O2 Liters/Min Not Reportable FiO2 21 Sodium Potassium Chloride Carbon Dioxide Anion Gap BUN Creatinine Estim Creat Clear Calc Estimated GFR Glucose POC Capillary Glucose 181 H 131 H Calcium Magnesium Total Bilirubin AST ALT Alkaline Phosphatase Total Protein Albumin TSH (Reflex) 09/21/24 09/22/24 09/22/24 19:27 05:16 05:18 WBC 11.3 H RBC 3.24 L Hgb 10.4 L Hct 31.6 L MCV 97.5 MCH 32.1 MCHC 32.9 RDW 14.2 Plt Count 196 MPV 12.0 H Immature Gran % (Auto) 0.6 H Neut % (Auto) 72.9 Lymph % (Auto) 13.5 L [place] % (Auto) 11.8 H Eos % (Auto) 0.9 Baso % (Auto) 0.3 Lymph # (Auto) 1.53 [place] # (Auto) 1.3 H Eos # (Auto) 0.1 Baso # (Auto) 0.0 Abs Immat Gran (auto) 0.07 H Absolute Neuts (auto) 8.3 H Absolute Nucleated RBC 0.000 Nucleated RBC % 0.0 PT 26.4 H INR 2.4 Puncture Site ABG pH ABG pCO2 ABG pO2 ABG PO2/FiO2 Ratio ABG HCO3 ABG O2 Saturation ABG O2 Content ABG Base Excess A-a Gradient Oxyhemoglobin Total Hemoglobin O2 Delivery Device O2 Liters/Min FiO2 Sodium 131 L Potassium 3.9 Chloride 93 L Carbon Dioxide 31 H Anion Gap 7 BUN 30 H Creatinine 1.22 H Estim Creat Clear Calc 41 Estimated GFR 42 L Glucose 135 H POC Capillary Glucose 192 H Calcium 8.0 L Magnesium 1.8 Total Bilirubin 0.7 AST 17 ALT 11 Alkaline Phosphatase 53 Total Protein 6.0 L Albumin 2.7 L TSH (Reflex) 0.879 09/22/24 08:00 WBC RBC Hgb Hct MCV MCH MCHC RDW Plt Count MPV Immature Gran % (Auto) Neut % (Auto) Lymph % (Auto) [place] % (Auto) Eos % (Auto) Baso % (Auto) Lymph # (Auto) [place] # (Auto) Eos # (Auto) Baso # (Auto) Abs Immat Gran (auto) Absolute Neuts (auto) Absolute Nucleated RBC Nucleated RBC % PT INR Puncture Site ABG pH ABG pCO2 ABG pO2 ABG PO2/FiO2 Ratio ABG HCO3 ABG O2 Saturation ABG O2 Content ABG Base Excess A-a Gradient Oxyhemoglobin Total Hemoglobin O2 Delivery Device O2 Liters/Min FiO2 Sodium Potassium Chloride Carbon Dioxide Anion Gap BUN Creatinine Estim Creat Clear Calc Estimated GFR Glucose POC Capillary Glucose 126 H Calcium Magnesium Total Bilirubin AST ALT Alkaline Phosphatase Total Protein Albumin TSH (Reflex) Quality VTE Prophylaxis VTE prophylaxis: pharmacologic ordered
--- NOTE | 2024-09-22 12:02 | PCOTNOTE ---
Patient refused skilled occupational therapy evaluation this date due to pain (even after pain medication provided per RN).
[2024-09-22 12:06] LABS: Glucose Point of Care 219 mg/dl (65-105)
[2024-09-22] MEDS: INSULIN ASPART (*BKC) 100 UNITS/ML SUB-Q ×2 (12:51→20:22)
[2024-09-22] MEDS: GABAPENTIN 100 MG CAPSULE PO ×2 (12:51→17:28)
[2024-09-22 13:19] VITALS: BP 102/53; PULSE 90; RESP 18; TEMP 36.4; O2SAT 94
[2024-09-22 16:56] LABS: Glucose Point of Care 197 mg/dl (65-105)
[2024-09-22] MEDS: WARFARIN (*PBKC) 2 MG TABLET PO (17:28)
[2024-09-22] MEDS: WARFARIN (*PBKC) 5 MG TABLET PO (17:28)
[2024-09-22 19:32] VITALS: BP 106/46; PULSE 96; RESP 18; TEMP 36.4; O2SAT 90
[2024-09-22 20:22] LABS: Glucose Point of Care 202 mg/dl (65-105)
[2024-09-22 21:43] VITALS: O2SAT 96
--- NOTE | 2024-09-23 | ECHO_ITS ---
Patient Info Name: Akanksha Garner Age: 79 years : 1945 Gender: Female Ht: 63 in Wt: 268 lbs BSA: 2.40 m2 HR: 81 bpm BP: 119 / 50 mmHg Technical Quality: Good Exam Date: 09/23/2024 11:58 AM Exam Location: Echo Lab Exam Room: [facility] Patient Status: Inpatient Admit Date: 09/19/2024 Staff Ordering Physician: Margarita Louis PA-C Early Childhood Services Coordinator: Jamee Posey RDCS Attending Provider: Margarita Louis PA-C Referring Physician: Heriberto ROJAS; Exam Type: CA echo doppler color flow Study Info Indications - Noncompliant with meds and pulmonary edema Complete two-dimensional, color flow and Doppler transthoracic echocardiogram is performed. Summary 1. Complete two-dimensional, color flow and Doppler transthoracic echocardiogram is performed. 2. Left ventricular chamber dimension is mildly enlarged. 3. Left ventricular systolic function is normal, estimated at 55-60%. 4. Left ventricular septal wall motion is abnormal with septal motion related to bundle branch block. 5. The left ventricular diastolic function is normal. 6. E/e' 8 is minimally elevated. 7. Left atrial chamber dimension is mildly enlarged. 8. There is trace mitral valve regurgitation. 9. There is mild tricuspid valve regurgitation. 10. Mild pulmonary hypertension, estimated pulmonary arterial systolic pressure is 49 mmHg. 11. There is trace pulmonic regurgitation. 12. Dilated inferior vena cava with >50% collapse upon inspiration consistent with elevated right atrial pressure, 10 mmHg. Left Ventricle E/e' 8 is minimally elevated. Left ventricular chamber dimension is mildly enlarged. Left ventricular systolic function is normal, estimated at 55-60%. Left ventricular septal wall motion is abnormal with septal motion related to bundle branch block. The left ventricular diastolic function is normal. Right Ventricle Right ventricular systolic function is normal and with normal TAPSE 2.8 cm. Right ventricular chamber dimension is normal. Left Atria Left atrial chamber dimension is mildly enlarged. Right Atria Right atrial chamber dimension is normal. Aortic Valve The aortic valve is trileaflet. There is no aortic valve stenosis. There is no aortic valve regurgitation. Pulmonic Valve There is trace pulmonic regurgitation. Mitral Valve There is no mitral valve stenosis. There is trace mitral valve regurgitation. Tricuspid Valve There is mild tricuspid valve regurgitation. Mild pulmonary hypertension, estimated pulmonary arterial systolic pressure is 49 mmHg. Pericardium/Pleural There is no pericardial effusion. Inferior Vena Cava Dilated inferior vena cava with >50% collapse upon inspiration consistent with elevated right atrial pressure, 10 mmHg. Aorta The aortic root size at the sinus of Valsalva is normal. Left Ventricular Outflow Tract Name Value Normal LVOT 2D LVOT Diameter 2.2 cm LVOT Doppler LVOT Peak Gradient 6 mmHg LVOT Mean Gradient 3 mmHg LVOT VTI 23 cm LVOT VTI/AV VTI Ratio 0.7 LVOT Stroke Volume 85 ml LVOT CO 6.9 l/min LVOT CI 2.9 l/min/m2 Pulmonic Valve Name Value Normal PV Doppler PV Peak Gradient 6 mmHg PV Regurgitation Doppler MN Peak End Diastolic Velocity 105 cm/s Mitral Valve Name Value Normal MV Doppler MV Peak Gradient 3 mmHg MV Mean Gradient 1 mmHg MV Decel [place] 243 cm/s2 MV PHT 78 ms MV Area (PHT) 2.8 cm2 4.0-5.0 MV Area (Cont Eq VTI) 3.1 cm2 MV Diastolic Function MV E Peak Velocity 65 cm/s MV A Peak Velocity 56 cm/s MV E/A 1.2 MV Decel Time 268 ms MV Annular TDI MV E/e' (Septal) 11.7 <=8.0 MV E/e' (Lateral) 6.9 <=8.0 MV E/e' (Average) 9.3 Tricuspid Valve Name Value Normal TV Regurgitation Doppler TR Peak Velocity 312 cm/s TR Peak Gradient 30 mmHg Estimated PAP/RSVP RA Pressure 10 mmHg <=5 PA Systolic Pressure 49 mmHg <36 RV Systolic Pressure 49 mmHg <36 Aortic Valve Name Value Normal AV Doppler AV Peak Velocity 171 cm/s AV Peak Gradient 12 mmHg AV Mean Gradient 6 mmHg AV VTI 34 cm AV Area (Cont Eq VTI) 2.5 cm2 >=3.0 AV Area (Cont Eq Driss) 2.8 cm2 AV Regurgitation 2D LVOT Area 3.7 cm2 Ventricles Name Value Normal LV Dimensions 2D/MM IVS Diastolic Thickness (2D) 0.8 cm 0.6-1.0 LVID Diastole (2D) 5.2 cm 3.8-5.2 LVIW Diastolic Thickness (2D) 0.9 cm 0.6-0.9 LVID Systole (2D) 3.7 cm 2.2-3.5 LVOT Diameter 2.2 cm LV Mass (2D Cubed) 155.35 g 67.00-162.00 LV Mass Index (2D Cubed) 65 g/m2 43-95 Relative Wall Thickness (2D) 0.35 LV Fractional Shortening/Ejection Fraction 2D/MM LV Fractional Shortening (2D) 30 % 27-45 LV EF (2D Teichclairez) 56 % 54-74 LV Diastolic Volume (4C MOD) 146 ml LV EF (4C MOD) 62 % LV Diastolic Length (4C) 8.2 cm LV Systolic Length (4C) 6.9 cm LV Stroke Volume (4C MOD) 90 ml Atria Name Value Normal LA Dimensions LA Volume (4C A-L) 78 ml RA Dimensions RA Area (4C) 20.9 cm2 <=18.0 Report Signatures
[2024-09-23 05:14] VITALS: BP 119/50; PULSE 81; RESP 17; TEMP 36.7; O2SAT 96
[2024-09-23 05:49] LABS: Basophils Percent Auto 0.3 % (0.2-1.2); Eosinophils Absolute Auto 0.1 K/mm3 (0-0.3); Eosinophils Percent Auto 1.3 % (0-4.4); Hematocrit 30.1 % (37.0-47.0); Hemoglobin 9.8 g/dL (12.0-15.0); Immature Granulocyte Absolute 0.06 K/mm3 (0.00-0.031); Immature Granulocyte Percent A 0.6 % (0-0.5); Lymphocytes Absolute Auto 1.61 K/mm3 (0.9-3.2); Lymphocytes Percent Auto 15.5 % (18.3-44.2); Mean Corpuscular HGB Conc 32.6 g/dl (32-36); Mean Corpuscular Hemoglobin 31.9 pg (26-34); Mean Platelet Volume 11.8 fl (7.4-10.4); Monocytes Absolute Auto 1.3 K/mm3 (0.1-0.6); Monocytes Percent Auto 12.5 % (2.6-8.5); Neutrophils Absolute Auto 7.3 K/mm3 (1.3-6.7); Neutrophils Percent Auto 69.8 % (45.5-73.1); Platelet Count Result 210 k/mm3 (150-375); Red Blood Count 3.07 M/mm3 (4.2-5.4); Red Cell Distribution Width 14.1 % (11.5-14.5); White Blood Count 10.4 K/mm3 (4.5-10.0)
[2024-09-23 06:03] LABS: INR 2.7; Prothrombin Time 28.7 Seconds (11.1-14.7)
[2024-09-23 06:10] LABS: Alanine Aminotransferase 10 U/L (6-35); Albumin Level 2.6 g/dL (3.5-5.1); Alkaline Phosphatase 53 U/L (38-126); Anion Gap 5 mmol/L (4-12); Aspartate Amino Transferase 14 U/L (14-36); Bilirubin,Total 0.6 mg/dL (0.2-1.3); Blood Urea Nitrogen 37 mg/dL (7-17); Calcium 8.1 mg/dL (8.4-10.2); Carbon Dioxide 32 mmol/L (22-30); Chloride 94 mmol/L (98-107); Estimated CRCL calculation 41 ml/min; Estimated Glomerular Filt Rate 43; Glucose 135 mg/dL (65-110); Magnesium 1.9 mg/dL (1.6-2.3); Potassium 3.8 mmol/L (3.4-5.0); Sodium 131 mmol/L (137-145)
[2024-09-23 08:10] LABS: Glucose Point of Care 134 mg/dl (65-105)
[2024-09-23] MEDS: PANTOPRAZOLE 40 MG TABLET PO (08:28)
[2024-09-23] MEDS: lisinopriL 5 MG TABLET PO (08:28)
[2024-09-23] MEDS: AMOXICILLIN/CLAVULANATE K 875-125 MG TAB 1 TABLET PO ×2 (08:28→21:02)
[2024-09-23] MEDS: PIOGLITAZONE HCL 30 MG TABLET PO (08:28)
[2024-09-23] MEDS: ATORVASTATIN 20 MG TABLET PO (08:28)
[2024-09-23] MEDS: guaiFENesin 12 HR 600 MG TABCR PO ×2 (08:28→21:02)
[2024-09-23] MEDS: GABAPENTIN 100 MG CAPSULE PO ×3 (08:28→16:21)
[2024-09-23] MEDS: EUCERIN CREAM 120 GM JAR 1 APPLIC TOPICAL (08:29)
[2024-09-23] MEDS: HYDROcodone/acetaminophen (*CRX) 5-325 MG TABLET 1 TAB PO ×2 (08:37→23:42)
[2024-09-23 08:38] VITALS: RESP 18; O2SAT 94
[2024-09-23] MEDS: FUROSEMIDE INJ 40 MG/4 ML VIAL IV PUSH ×2 (08:38→21:01)
--- NOTE | 2024-09-23 08:48 | PM.IMPN ---
Progress Note: A&P Assessment and Plan (1) DVT (deep venous thrombosis): Qualifiers: Affected thrombotic vein of extremity: tibial Chronicity: acute DVT location: lower extremity Laterality: right Qualified Code(s): I82.441 - Acute embolism and thrombosis of right tibial vein Code(s): I82.409 - Acute embolism and thrombosis of unspecified deep veins of unspecified lower extremity Status: Acute Assessment and Plan: Patient presents with increased weakness and lower extremity swelling - CXR: Subsegmental right basilar atelectasis/consolidation. Mild diffuse interstitial edema versus chronic interstitial change - Venous doppler: Inadequate visualization of multiple lower extremity veins bilaterally as detailed above. DVT visualized in the right posterior tibial vein. No other thrombus detected within the adequately visualized veins. - VQ scan (patient allergic to contrast): Pulmonary embolism absent (very low probability). - Echo: LVEF 55-60% with normal diastolic function, mild pulmonary hypertension and dilated inferior vena cava consistent with elevated right atrial pressure Anticoagulation: warfarin 7 mg daily, INR 2.7 on am labs (2) Acute on chronic diastolic CHF (congestive heart failure): Code(s): I50.33 - Acute on chronic diastolic (congestive) heart failure Status: Acute Assessment and Plan: - Furosemide 40 mg ivp q 12. - Echo: LVEF 55-60% with normal diastolic function, mild pulmonary hypertension and dilated inferior vena cava consistent with elevated right atrial pressure - Monitor vital signs, I&Os, BUN/creatinine, daily weights, neuro status and patient is a fall risk - Monitor serum electrolytes, Keep serum Potassium>4 and serum Magnesium>2 and CBC Patient does have significant orthopnea on admission likely due to a combination of heart failure and likely previously undiagnosed/untreated obstructive sleep apnea. Per prior GIANNI sign out she discussed patient with pulmonology, Dr. Schwartz on 09/21 who gave the following recommendations: blood gas on room air: pH 7.524, pCO2 33.1, pO2 64.2, HCO3 26.7 TSH 0.879 apnea link on room air: 121 minutes with spo2 < 88% apnea link on 2 liters overnight: no hypoxia noted sleep study outpatient. (3) Pulmonary edema: Qualifiers: Chronicity: acute Qualified Code(s): J81.0 - Acute pulmonary edema Code(s): J81.1 - Chronic pulmonary edema Status: Acute Assessment and Plan: - Furosemide 40 mg ivp q 12. - Echo: LVEF 55-60% with normal diastolic function, mild pulmonary hypertension and dilated inferior vena cava consistent with elevated right atrial pressure - Monitor vital signs, I&Os, BUN/creatinine, daily weights, neuro status and patient is a fall risk - Monitor serum electrolytes, Keep serum Potassium>4 and serum Magnesium>2 and CBC Patient does have significant orthopnea on admission likely due to a combination of heart failure and likely previously undiagnosed/untreated obstructive sleep apnea. Per prior GIANNI sign out she discussed patient with pulmonology, Dr. Schwartz on 09/21 who gave the following recommendations: blood gas on room air: pH 7.524, pCO2 33.1, pO2 64.2, HCO3 26.7 TSH 0.879 apnea link on room air: 121 minutes with spo2 < 88% apnea link on 2 liters overnight: no hypoxia noted sleep study outpatient. (4) UTI (urinary tract infection): Code(s): N39.0 - Urinary tract infection, site not specified Status: Acute Assessment and Plan: - UC obtained on 09/19: klebsiella pneumoniae - started on Augmentin 875-125 mg 1 tab PO q 12 on 09/21-09/27 (5) Type 2 diabetes mellitus with diabetic polyneuropathy: Code(s): E11.42 - Type 2 diabetes mellitus with diabetic polyneuropathy Status: Acute Assessment and Plan: - hypoglycemia protocol - POC blood glucose ACHS - home medication - metformin 500 mg BID and pioglitazone 30 mg daily - correct regimen ordered - low dose TIDWM - A1C 6.5 on 03/19 (6) Noncompliance with medication regimen: Code(s): Z91.148 - Patient's other noncompliance with medication regimen for other reason Status: Acute Assessment and Plan: Encourage compliance. (7) Morbid obesity with BMI of 45.0-49.9, adult: Code(s): E66.01 - Morbid (severe) obesity due to excess calories; Z68.42 - Body mass index [BMI] 45.0-49.9, adult Status: Acute Assessment and Plan: 2 gram sodium consistent carb diet. Encourage activity. Time Spent With Patient Time with patient: 25 - 35 minutes Subjective Date/time seen: 09/23/24 08:48 Interval history: 78-year-old female with past medical history of DVTs, grade 1 diastolic dysfunction, rheumatoid arthritis, chronic kidney disease stage III and morbid obesity who presented to the hospital from home due to increased weakness and lower extremity swelling. Patient is pleasant lying comfortably in her bed. 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 She notes that at baseline she is typically able to take a few steps to get into her wheelchair. Encouraged patient to work with PT/OT to continue building strength. Patient has no other complaints denying chest pain, shortness of breath, palpitations, nausea/vomiting and abdominal pain. She also denies any urinary symptoms including dysuria, hematuria, burning. Remains on augmentin to complete the course. Care coordination following, SNF acceptance pending. Review of Systems Review of Systems: All systems reviewed & are unremarkable except as noted in HPI and below Exam Narrative: AF HR 95 RR 17 SpO2 95 BP 130/53 General: female in no acute respiratory distress who is nontoxic appearing, lying semi recumbent in bed. HEENT: Normocephalic. Atraumatic. Extraocular movement intact. Sclera clear and anicteric. No facial asymmetry. Chest: Lungs are clear but diminished to auscultation bilaterally. No wheezes or crackles. CV: Heart was regular rate and rhythm. S1-S2. No murmurs, gallops, or rubs. Abd: Abdomen was soft. Nontender. Nondistended. Postive bowel sounds. No organomegaly or masses. Ext: No clubbing, cyanosis. Trivial pedal edema. 2+ DP pulses bilaterally. Neuro: Patient is alert and oriented x4. Cranial nerves 2-12 are intact. Speech is clear. Objective Data Vital Signs Vital Signs: Vital Signs - 24 hr 09/22/24 10:20 09/22/24 13:19 09/22/24 19:32 Temperature 97.6 F 97.5 F L Pulse Rate 90 96 Respiratory Rate 18 18 Blood Pressure 102/53 L 106/46 L Pulse Oximetry 94 90 Oxygen Delivery Room Air Oxygen Flow Rate Fraction of Inspired Oxygen 09/22/24 20:14 09/22/24 21:43 09/23/24 05:14 Temperature 98.1 F Pulse Rate 81 Respiratory Rate 17 Blood Pressure 119/50 L Pulse Oximetry 96 96 Oxygen Delivery Room Air Nasal Cannula Oxygen Flow Rate 2 Fraction of Inspired Oxygen 28 Intake/Output Intake/Output: Intake & Output 01/19/25 09/21/24 09/22/24 09/23/24 23:59 23:59 23:59 23:59 Intake Total 780 1600 1020 350 Output Total 1300 1250 1250 550 Balance -520 350 -230 -200 Meds/Results Medications: Active Medications Generic Name Dose Route Start Last Admin Trade Name Freq PRN Reason Stop Dose Admin Acetaminophen 650 mg 09/18/24 17:39 Acetaminophen 325 Mg Tablet PO Q4H PRN Mild Pain (1-3) or Fever Hydrocodone Bitart/Acetaminophen 1 tab 09/18/24 17:39 09/23/24 08:37 Hydrocodone/Acetaminophen (*Crx) 5-325 Mg Tablet PO 1 tab Q4H PRN Administration Pain Rated 4-6 Amoxicillin/Clavulanate Potassium 1 tablet 09/21/24 14:00 09/23/24 08:28 Amoxicillin/Clavulanate K 875-125 Mg Tab PO 09/27/24 21:01 1 tablet Q12HR VALENTIN Administration Atorvastatin Calcium 20 mg 09/19/24 09:00 09/23/24 08:28 Atorvastatin 20 Mg Tablet PO 20 mg DAILY VALENTIN Administration Dextrose 12.5 gm 09/18/24 21:00 Dextrose 50% 25 Gm/50 Ml Syringe IV PUSH PRN PRN Hypoglycemia Protocol Furosemide 40 mg 09/18/24 21:00 09/23/24 08:38 Furosemide Inj 40 Mg/4 Ml Vial IV PUSH 40 mg Q12HR VALENTIN Administration Gabapentin 100 mg 09/22/24 13:00 09/23/24 08:28 Gabapentin 100 Mg Capsule PO 100 mg TID VALENTIN Administration Glucagon 1 mg 09/18/24 21:00 Glucagon For Inj 1 Mg Vial IM PRN PRN Hypoglycemia Protocol Glucose 15 gm 09/18/24 21:00 Glucose Oral Gel 15 Gm Of Glucse In 37.5 Gm Tube PO PRN PRN Hypoglycemia Protocol Guaifenesin 600 mg 09/21/24 11:20 09/23/24 08:28 Guaifenesin 12 Hr 600 Mg Tabcr PO 09/28/24 11:19 600 mg Q12HR VALENTIN Administration Dextrose 1,000 mls @ 100 mls/hr 09/18/24 21:00 Dextrose 5% 1,000 Ml IVPB PRN PRN Hypoglycemia Protocol Insulin Aspart 2 - 5 units 09/19/24 08:00 09/23/24 08:00 Insulin Aspart (*Bkc) 100 Units/Ml SUB-Q Not Given TIDWM [facility] Protocol Insulin Aspart 1 - 2 units 09/18/24 21:00 09/22/24 20:22 Insulin Aspart (*Bkc) 100 Units/Ml SUB-Q 1 units HS VALENTIN Administration Protocol Lisinopril 5 mg 09/19/24 09:00 09/23/24 08:28 Lisinopril 5 Mg Tablet PO 5 mg QAM VALENTIN Administration Multi-Ingred Cream/Lotion/Oil/Oint 1 applic 09/19/24 12:05 09/23/24 08:29 Eucerin Cream 120 Gm Jar TOPICAL 1 applic DAILY [facility] Administration Ondansetron HCl 4 mg 09/18/24 17:39 Ondansetron Inj 4 Mg/2 Ml Vial IV PUSH Q4H PRN Nausea Pantoprazole Sodium 40 mg 09/19/24 09:00 09/23/24 08:28 Pantoprazole 40 Mg Tablet PO 40 mg DAILY VALENTIN Administration Pioglitazone HCl 30 mg 09/19/24 09:00 09/23/24 08:28 Pioglitazone Hcl 30 Mg Tablet PO 30 mg DAILY VALENTIN Administration Warfarin Sodium 5 mg 09/19/24 17:00 09/22/24 17:28 Warfarin (*Pbkc) 5 Mg Tablet PO 5 mg DAILY@1700 VALENTIN Administration Warfarin Sodium 2 mg 09/19/24 17:00 09/22/24 17:28 Warfarin (*Pbkc) 2 Mg Tablet PO 2 mg DAILY@1700 VALENTIN Administration Radiology Results: ITS Impressions Chest X-Ray 09/18/24 15:03 IMPRESSION: Subsegmental right basilar atelectasis/consolidation. Mild diffuse interstitial edema versus chronic interstitial change Venous Doppler Study 09/18/24 16:26 IMPRESSION: Inadequate visualization of multiple lower extremity veins bilaterally as detailed above. DVT visualized in the right posterior tibial vein. No other thrombus detected within the adequately visualized veins. Labs Labs: Laboratory Results - last 24 hr 09/22/24 09/22/24 09/22/24 12:03 16:39 19:29 WBC RBC Hgb Hct MCV MCH MCHC RDW Plt Count MPV Immature Gran % (Auto) Neut % (Auto) Lymph % (Auto) [place] % (Auto) Eos % (Auto) Baso % (Auto) Lymph # (Auto) [place] # (Auto) Eos # (Auto) Baso # (Auto) Abs Immat Gran (auto) Absolute Neuts (auto) Absolute Nucleated RBC Nucleated RBC % PT INR Sodium Potassium Chloride Carbon Dioxide Anion Gap BUN Creatinine Estim Creat Clear Calc Estimated GFR Glucose POC Capillary Glucose 219 H 197 H 202 H Calcium Magnesium Total Bilirubin AST ALT Alkaline Phosphatase Total Protein Albumin 09/23/24 09/23/24 05:18 07:50 WBC 10.4 H RBC 3.07 L Hgb 9.8 L Hct 30.1 L MCV 98.0 MCH 31.9 MCHC 32.6 RDW 14.1 Plt Count 210 MPV 11.8 H Immature Gran % (Auto) 0.6 H Neut % (Auto) 69.8 Lymph % (Auto) 15.5 L [place] % (Auto) 12.5 H Eos % (Auto) 1.3 Baso % (Auto) 0.3 Lymph # (Auto) 1.61 [place] # (Auto) 1.3 H Eos # (Auto) 0.1 Baso # (Auto) 0.0 Abs Immat Gran (auto) 0.06 H Absolute Neuts (auto) 7.3 H Absolute Nucleated RBC 0.000 Nucleated RBC % 0.0 PT 28.7 H INR 2.7 Sodium 131 L Potassium 3.8 Chloride 94 L Carbon Dioxide 32 H Anion Gap 5 BUN 37 H Creatinine 1.21 H Estim Creat Clear Calc 41 Estimated GFR 43 L Glucose 135 H POC Capillary Glucose 134 H Calcium 8.1 L Magnesium 1.9 Total Bilirubin 0.6 AST 14 ALT 10 Alkaline Phosphatase 53 Total Protein 6.0 L Albumin 2.6 L Quality VTE Prophylaxis VTE prophylaxis: pharmacologic ordered
[2024-09-23 12:17] LABS: Glucose Point of Care 158 mg/dl (65-105)
[2024-09-23 14:16] VITALS: BP 130/53; PULSE 95; RESP 17; TEMP 37.7; O2SAT 95
[2024-09-23 14:56] VITALS: TEMP 37.4
[2024-09-23] MEDS: WARFARIN (*PBKC) 2 MG TABLET PO (16:21)
[2024-09-23] MEDS: WARFARIN (*PBKC) 5 MG TABLET PO (16:21)
[2024-09-23 17:28] LABS: Glucose Point of Care 185 mg/dl (65-105)
[2024-09-23 20:10] VITALS: BP 131/50; PULSE 82; RESP 18; TEMP 37.7; O2SAT 96
[2024-09-23 21:21] LABS: Glucose Point of Care 188 mg/dl (65-105)
[2024-09-24] MEDS: ACETAMINOPHEN 325 MG TABLET 650 MG PO ×2 (03:18→09:01)
[2024-09-24 05:34] VITALS: BP 116/54; PULSE 80; RESP 20; TEMP 36.8; O2SAT 94
[2024-09-24 06:23] LABS: Basophils Percent Auto 0.1 % (0.2-1.2); Eosinophils Percent Auto 0.4 % (0-4.4); Hematocrit 31.1 % (37.0-47.0); Hemoglobin 10.1 g/dL (12.0-15.0); Immature Granulocyte Absolute 0.09 K/mm3 (0.00-0.031); Immature Granulocyte Percent A 0.8 % (0-0.5); Lymphocytes Absolute Auto 1.15 K/mm3 (0.9-3.2); Lymphocytes Percent Auto 10.3 % (18.3-44.2); Mean Corpuscular HGB Conc 32.5 g/dl (32-36); Mean Corpuscular Hemoglobin 31.7 pg (26-34); Mean Corpuscular Volume 97.5 fl (80-100); Mean Platelet Volume 11.6 fl (7.4-10.4); Monocytes Absolute Auto 1.5 K/mm3 (0.1-0.6); Monocytes Percent Auto 13.7 % (2.6-8.5); Neutrophils Absolute Auto 8.4 K/mm3 (1.3-6.7); Neutrophils Percent Auto 74.7 % (45.5-73.1); Platelet Count Result 223 k/mm3 (150-375); Red Blood Count 3.19 M/mm3 (4.2-5.4); Red Cell Distribution Width 13.9 % (11.5-14.5); White Blood Count 11.2 K/mm3 (4.5-10.0)
[2024-09-24 06:32] LABS: INR 3.2; Prothrombin Time 32.6 Seconds (11.1-14.7)
[2024-09-24 06:34] LABS: Alanine Aminotransferase 10 U/L (6-35); Albumin Level 2.7 g/dL (3.5-5.1); Alkaline Phosphatase 53 U/L (38-126); Anion Gap 6 mmol/L (4-12); Aspartate Amino Transferase 16 U/L (14-36); Bilirubin,Total 0.6 mg/dL (0.2-1.3); Blood Urea Nitrogen 42 mg/dL (7-17); Calcium 8.3 mg/dL (8.4-10.2); Carbon Dioxide 30 mmol/L (22-30); Chloride 93 mmol/L (98-107); Estimated CRCL calculation 41 ml/min; Estimated Glomerular Filt Rate 42; Glucose 160 mg/dL (65-110); Magnesium 1.9 mg/dL (1.6-2.3); Potassium 3.9 mmol/L (3.4-5.0); Sodium 129 mmol/L (137-145)
--- NOTE | 2024-09-24 07:16 | PM.IMPN ---
Progress Note: A&P Assessment and Plan (1) Fall: Code(s): W19.XXXA - Unspecified fall, initial encounter Status: Acute Assessment and Plan: Patient reports falling out of her recliner the day prior to admission. She denies hitting her head or LOC. Reports severe neck pain since this fall. Denies tingling/numbness/shooting pains. - Head CT ordered - C spine CT ordered - PT/OT (2) DVT (deep venous thrombosis): Qualifiers: Affected thrombotic vein of extremity: tibial Chronicity: acute DVT location: lower extremity Laterality: right Qualified Code(s): I82.441 - Acute embolism and thrombosis of right tibial vein Code(s): I82.409 - Acute embolism and thrombosis of unspecified deep veins of unspecified lower extremity Status: Acute Assessment and Plan: Patient presents with increased weakness and lower extremity swelling - CXR: Subsegmental right basilar atelectasis/consolidation. Mild diffuse interstitial edema versus chronic interstitial change - Venous doppler: Inadequate visualization of multiple lower extremity veins bilaterally as detailed above. DVT visualized in the right posterior tibial vein. No other thrombus detected within the adequately visualized veins. - VQ scan (patient allergic to contrast): Pulmonary embolism absent (very low probability). - Echo: LVEF 55-60% with normal diastolic function, mild pulmonary hypertension and dilated inferior vena cava consistent with elevated right atrial pressure Anticoagulation: warfarin 7 mg daily, INR 3.2 on am labs. Due to increased INR will decrease dose to 4 mg today and reassess INR on am labs. (3) Acute on chronic diastolic CHF (congestive heart failure): Code(s): I50.33 - Acute on chronic diastolic (congestive) heart failure Status: Acute Assessment and Plan: - Furosemide 40 mg ivp daily. - Echo: LVEF 55-60% with normal diastolic function, mild pulmonary hypertension and dilated inferior vena cava consistent with elevated right atrial pressure - Monitor vital signs, I&Os, BUN/creatinine, daily weights, neuro status and patient is a fall risk - Monitor serum electrolytes, Keep serum Potassium>4 and serum Magnesium>2 and CBC Patient does have significant orthopnea on admission likely due to a combination of heart failure and likely previously undiagnosed/untreated obstructive sleep apnea. Per prior GIANNI sign out she discussed patient with pulmonology, Dr. Schwartz on 09/21 who gave the following recommendations: blood gas on room air: pH 7.524, pCO2 33.1, pO2 64.2, HCO3 26.7 TSH 0.879 apnea link on room air: 121 minutes with spo2 < 88% apnea link on 2 liters overnight: no hypoxia noted sleep study outpatient. (4) Pulmonary edema: Qualifiers: Chronicity: acute Qualified Code(s): J81.0 - Acute pulmonary edema Code(s): J81.1 - Chronic pulmonary edema Status: Acute Assessment and Plan: - Furosemide 40 mg ivp daily . - Echo: LVEF 55-60% with normal diastolic function, mild pulmonary hypertension and dilated inferior vena cava consistent with elevated right atrial pressure - Monitor vital signs, I&Os, BUN/creatinine, daily weights, neuro status and patient is a fall risk - Monitor serum electrolytes, Keep serum Potassium>4 and serum Magnesium>2 and CBC Patient does have significant orthopnea on admission likely due to a combination of heart failure and likely previously undiagnosed/untreated obstructive sleep apnea. Per prior GIANNI sign out she discussed patient with pulmonology, Dr. Schwartz on 09/21 who gave the following recommendations: blood gas on room air: pH 7.524, pCO2 33.1, pO2 64.2, HCO3 26.7 TSH 0.879 apnea link on room air: 121 minutes with spo2 < 88% apnea link on 2 liters overnight: no hypoxia noted sleep study outpatient. (5) UTI (urinary tract infection): Code(s): N39.0 - Urinary tract infection, site not specified Status: Acute Assessment and Plan: - UC obtained on 09/19: klebsiella pneumoniae - started on Augmentin 875-125 mg 1 tab PO q 12 on 09/21-09/27 (6) Type 2 diabetes mellitus with diabetic polyneuropathy: Code(s): E11.42 - Type 2 diabetes mellitus with diabetic polyneuropathy Status: Acute Assessment and Plan: - hypoglycemia protocol - POC blood glucose ACHS - home medication - metformin 500 mg BID and pioglitazone 30 mg daily - correct regimen ordered - low dose TIDWM - A1C 6.5 on 03/19 (7) Noncompliance with medication regimen: Code(s): Z91.148 - Patient's other noncompliance with medication regimen for other reason Status: Acute Assessment and Plan: Encourage compliance. (8) Morbid obesity with BMI of 45.0-49.9, adult: Code(s): E66.01 - Morbid (severe) obesity due to excess calories; Z68.42 - Body mass index [BMI] 45.0-49.9, adult Status: Acute Assessment and Plan: 2 gram sodium consistent carb diet. Encourage activity. Time Spent With Patient Time with patient: 25 - 35 minutes Subjective Date/time seen: 09/24/24 07:16 Interval history: 78-year-old female with past medical history of DVTs, grade 1 diastolic dysfunction, rheumatoid arthritis, chronic kidney disease stage III and morbid obesity who presented to the hospital from home due to increased weakness and lower extremity swelling. Patient is pleasant lying in bed. She is endorsing severe neck pain more so on the right side that she states has been present since falling out of her recliner the day prior to admission. She denies hitting her head or LOC. She denies tingling/numbness or shooting pain to the right arm. She continues to be able to move the upper extremities but notes weakness and pain. She has no other complaints denying chest pain, shortness of breath, palpitations, nausea/vomiting and abdominal pain. Attempted to call patients sonDmitry to update him on her treatment. Voicemail left with call back number. Review of Systems Review of Systems: All systems reviewed & are unremarkable except as noted in HPI and below Exam Narrative: AF HR 77 RR 20 SpO2 96 BP 121/44 General: female in no acute respiratory distress who is nontoxic appearing, lying semi recumbent in bed. HEENT: Normocephalic. Atraumatic. Extraocular movement intact. Sclera clear and anicteric. No facial asymmetry. Pain when moving neck to the right. Pain with palpation of the neck more on the right side rather than along the spine itself. Chest: Lungs are clear but diminished to auscultation bilaterally. No wheezes or crackles. CV: Heart was regular rate and rhythm. S1-S2. No murmurs, gallops, or rubs. Abd: Abdomen was soft. Nontender. Nondistended. Postive bowel sounds. No organomegaly or masses. Ext: No clubbing, cyanosis. Trivial pedal edema. 2+ DP pulses bilaterally. Neuro: Patient is alert and oriented x4. Cranial nerves 2-12 are intact. Speech is clear. Objective Data Vital Signs Vital Signs: Vital Signs - 24 hr 09/23/24 08:38 09/23/24 14:16 09/23/24 14:56 Temperature 99.9 F H 99.3 F Pulse Rate 95 Respiratory Rate 18 17 Blood Pressure 130/53 L Pulse Oximetry 94 95 09/23/24 20:10 09/24/24 05:34 Temperature 99.9 F H 98.2 F Pulse Rate 82 80 Respiratory Rate 18 20 Blood Pressure 131/50 L 116/54 L Pulse Oximetry 96 94 Intake/Output Intake/Output: Intake & Output 09/21/24 09/22/24 09/23/24 09/24/24 23:59 23:59 23:59 23:59 Intake Total 1600 1020 1870 450 Output Total 1250 1250 1300 450 Balance 350 -230 570 0 Meds/Results Medications: Active Medications Generic Name Dose Route Start Last Admin Trade Name Freq PRN Reason Stop Dose Admin Acetaminophen 650 mg 09/18/24 17:39 09/24/24 03:18 Acetaminophen 325 Mg Tablet PO 650 mg Q4H PRN Administration Mild Pain (1-3) or Fever Hydrocodone Bitart/Acetaminophen 1 tab 09/18/24 17:39 09/23/24 23:42 Hydrocodone/Acetaminophen (*Crx) 5-325 Mg Tablet PO 1 tab Q4H PRN Administration Pain Rated 4-6 Amoxicillin/Clavulanate Potassium 1 tablet 09/21/24 14:00 09/23/24 21:02 Amoxicillin/Clavulanate K 875-125 Mg Tab PO 09/27/24 21:01 1 tablet Q12HR VALENTIN Administration Atorvastatin Calcium 20 mg 09/19/24 09:00 09/23/24 08:28 Atorvastatin 20 Mg Tablet PO 20 mg DAILY VALENTIN Administration Dextrose 12.5 gm 09/18/24 21:00 Dextrose 50% 25 Gm/50 Ml Syringe IV PUSH PRN PRN Hypoglycemia Protocol Furosemide 40 mg 09/18/24 21:00 09/23/24 21:01 Furosemide Inj 40 Mg/4 Ml Vial IV PUSH 40 mg Q12HR VALENTIN Administration Gabapentin 100 mg 09/22/24 13:00 09/23/24 16:21 Gabapentin 100 Mg Capsule PO 100 mg TID VALENTIN Administration Glucagon 1 mg 09/18/24 21:00 Glucagon For Inj 1 Mg Vial IM PRN PRN Hypoglycemia Protocol Glucose 15 gm 09/18/24 21:00 Glucose Oral Gel 15 Gm Of Glucse In 37.5 Gm Tube PO PRN PRN Hypoglycemia Protocol Guaifenesin 600 mg 09/21/24 11:20 09/23/24 21:02 Guaifenesin 12 Hr 600 Mg Tabcr PO 09/28/24 11:19 600 mg Q12HR VALENTIN Administration Dextrose 1,000 mls @ 100 mls/hr 09/18/24 21:00 Dextrose 5% 1,000 Ml IVPB PRN PRN Hypoglycemia Protocol Insulin Aspart 2 - 5 units 09/19/24 08:00 09/23/24 17:10 Insulin Aspart (*Bkc) 100 Units/Ml SUB-Q Not Given TIDWM VALENTIN Protocol Insulin Aspart 1 - 2 units 09/18/24 21:00 09/23/24 21:00 Insulin Aspart (*Bkc) 100 Units/Ml SUB-Q Not Given HS VALENTIN Protocol Lisinopril 5 mg 09/19/24 09:00 09/23/24 08:28 Lisinopril 5 Mg Tablet PO 5 mg QAM VALENTIN Administration Multi-Ingred Cream/Lotion/Oil/Oint 1 applic 09/19/24 12:05 09/23/24 08:29 Eucerin Cream 120 Gm Jar TOPICAL 1 applic DAILY [facility] Administration Ondansetron HCl 4 mg 09/18/24 17:39 Ondansetron Inj 4 Mg/2 Ml Vial IV PUSH Q4H PRN Nausea Pantoprazole Sodium 40 mg 09/19/24 09:00 09/23/24 08:28 Pantoprazole 40 Mg Tablet PO 40 mg DAILY VALENTIN Administration Perflutren Lipid Microsphere 0 ml 09/23/24 08:48 Perflutren Lipid Microspheres 1.5 Ml Vial Diluted To 10 Ml Total Volume IV PUSH 09/26/24 08:48 ONCE PRN adequate visualization Protocol Pioglitazone HCl 30 mg 09/19/24 09:00 09/23/24 08:28 Pioglitazone Hcl 30 Mg Tablet PO 30 mg DAILY VALENTIN Administration Warfarin Sodium 5 mg 09/19/24 17:00 09/23/24 16:21 Warfarin (*Pbkc) 5 Mg Tablet PO 5 mg DAILY@1700 VALENTIN Administration Warfarin Sodium 2 mg 09/19/24 17:00 09/23/24 16:21 Warfarin (*Pbkc) 2 Mg Tablet PO 2 mg DAILY@1700 [facility] Administration Radiology Results: ITS Impressions Chest X-Ray 09/18/24 15:03 IMPRESSION: Subsegmental right basilar atelectasis/consolidation. Mild diffuse interstitial edema versus chronic interstitial change Venous Doppler Study 09/18/24 16:26 IMPRESSION: Inadequate visualization of multiple lower extremity veins bilaterally as detailed above. DVT visualized in the right posterior tibial vein. No other thrombus detected within the adequately visualized veins. Labs Labs: Laboratory Results - last 24 hr 09/23/24 09/23/24 09/23/24 07:50 11:50 17:05 WBC RBC Hgb Hct MCV MCH MCHC RDW Plt Count MPV Immature Gran % (Auto) Neut % (Auto) Lymph % (Auto) [place] % (Auto) Eos % (Auto) Baso % (Auto) Lymph # (Auto) [place] # (Auto) Eos # (Auto) Baso # (Auto) Abs Immat Gran (auto) Absolute Neuts (auto) Absolute Nucleated RBC Nucleated RBC % PT INR Sodium Potassium Chloride Carbon Dioxide Anion Gap BUN Creatinine Estim Creat Clear Calc Estimated GFR Glucose POC Capillary Glucose 134 H 158 H 185 H Calcium Magnesium Total Bilirubin AST ALT Alkaline Phosphatase Total Protein Albumin 09/23/24 09/24/24 20:05 05:39 WBC 11.2 H RBC 3.19 L Hgb 10.1 L Hct 31.1 L MCV 97.5 MCH 31.7 MCHC 32.5 RDW 13.9 Plt Count 223 MPV 11.6 H Immature Gran % (Auto) 0.8 H Neut % (Auto) 74.7 H Lymph % (Auto) 10.3 L [place] % (Auto) 13.7 H Eos % (Auto) 0.4 Baso % (Auto) 0.1 L Lymph # (Auto) 1.15 [place] # (Auto) 1.5 H Eos # (Auto) 0.0 Baso # (Auto) 0.0 Abs Immat Gran (auto) 0.09 H Absolute Neuts (auto) 8.4 H Absolute Nucleated RBC 0.000 Nucleated RBC % 0.0 PT 32.6 H INR 3.2 Sodium 129 L Potassium 3.9 Chloride 93 L Carbon Dioxide 30 Anion Gap 6 BUN 42 H Creatinine 1.22 H Estim Creat Clear Calc 41 Estimated GFR 42 L Glucose 160 H POC Capillary Glucose 188 H Calcium 8.3 L Magnesium 1.9 Total Bilirubin 0.6 AST 16 ALT 10 Alkaline Phosphatase 53 Total Protein 6.0 L Albumin 2.7 L Quality VTE Prophylaxis VTE prophylaxis: pharmacologic ordered
[2024-09-24] MEDS: HYDROcodone/acetaminophen (*CRX) 5-325 MG TABLET 1 TAB PO ×3 (07:28→21:06)
[2024-09-24 07:41] LABS: Glucose Point of Care 174 mg/dl (65-105)
[2024-09-24 08:54] VITALS: RESP 20; O2SAT 94
[2024-09-24] MEDS: guaiFENesin 12 HR 600 MG TABCR PO ×2 (08:54→20:59)
[2024-09-24] MEDS: lisinopriL 5 MG TABLET PO (08:54)
[2024-09-24] MEDS: EUCERIN CREAM 120 GM JAR 1 APPLIC TOPICAL (08:54)
[2024-09-24] MEDS: PANTOPRAZOLE 40 MG TABLET PO (08:54)
[2024-09-24] MEDS: FUROSEMIDE INJ 40 MG/4 ML VIAL IV PUSH (08:54)
[2024-09-24] MEDS: ATORVASTATIN 20 MG TABLET PO (08:54)
[2024-09-24] MEDS: GABAPENTIN 100 MG CAPSULE PO ×3 (08:54→16:16)
[2024-09-24] MEDS: AMOXICILLIN/CLAVULANATE K 875-125 MG TAB 1 TABLET PO ×2 (08:54→20:59)
[2024-09-24] MEDS: PIOGLITAZONE HCL 30 MG TABLET PO (08:54)
[2024-09-24 10:13] VITALS: O2SAT 94
[2024-09-24 11:51] LABS: Glucose Point of Care 225 mg/dl (65-105)
[2024-09-24] MEDS: INSULIN ASPART (*BKC) 100 UNITS/ML SUB-Q ×3 (12:00→21:00)
[2024-09-24 14:00] VITALS: BP 121/44; PULSE 77; RESP 20; TEMP 36.7; O2SAT 96
[2024-09-24] MEDS: WARFARIN (*PBKC) 4 MG TABLET PO (16:16)
[2024-09-24 17:17] LABS: Glucose Point of Care 250 mg/dl (65-105)
[2024-09-24 20:27] LABS: Glucose Point of Care 277 mg/dl (65-105)
[2024-09-24 22:00] VITALS: BP 113/45; PULSE 86; RESP 18; TEMP 36.5; O2SAT 92
[2024-09-25 05:59] VITALS: BP 132/53; PULSE 84; RESP 18; TEMP 36.9; O2SAT 100
[2024-09-25 06:02] LABS: Basophils Percent Auto 0.2 % (0.2-1.2); Eosinophils Absolute Auto 0.2 K/mm3 (0-0.3); Eosinophils Percent Auto 1.2 % (0-4.4); Hematocrit 31.8 % (37.0-47.0); Hemoglobin 10.4 g/dL (12.0-15.0); Immature Granulocyte Absolute 0.12 K/mm3 (0.00-0.031); Immature Granulocyte Percent A 0.9 % (0-0.5); Lymphocytes Absolute Auto 1.42 K/mm3 (0.9-3.2); Lymphocytes Percent Auto 10.6 % (18.3-44.2); Mean Corpuscular HGB Conc 32.7 g/dl (32-36); Mean Corpuscular Hemoglobin 32.5 pg (26-34); Mean Corpuscular Volume 99.4 fl (80-100); Mean Platelet Volume 11.6 fl (7.4-10.4); Monocytes Absolute Auto 1.5 K/mm3 (0.1-0.6); Monocytes Percent Auto 11.4 % (2.6-8.5); Neutrophils Absolute Auto 10.1 K/mm3 (1.3-6.7); Neutrophils Percent Auto 75.7 % (45.5-73.1); Platelet Count Result 244 k/mm3 (150-375); Red Cell Distribution Width 13.7 % (11.5-14.5); White Blood Count 13.4 K/mm3 (4.5-10.0)
[2024-09-25 06:22] LABS: Alanine Aminotransferase 11 U/L (6-35); Albumin Level 2.8 g/dL (3.5-5.1); Alkaline Phosphatase 57 U/L (38-126); Anion Gap 6 mmol/L (4-12); Aspartate Amino Transferase 17 U/L (14-36); Bilirubin,Total 0.6 mg/dL (0.2-1.3); Blood Urea Nitrogen 50 mg/dL (7-17); Calcium 8.5 mg/dL (8.4-10.2); Carbon Dioxide 31 mmol/L (22-30); Chloride 91 mmol/L (98-107); Estimated CRCL calculation 43 ml/min; Estimated Glomerular Filt Rate 46; Glucose 202 mg/dL (65-110); Sodium 128 mmol/L (137-145)
[2024-09-25 07:28] LABS: INR 4.1; Prothrombin Time 40.2 Seconds (11.1-14.7)
--- NOTE | 2024-09-25 07:29 | PM.IMPN ---
Progress Note: A&P Assessment and Plan (1) Fall: Code(s): W19.XXXA - Unspecified fall, initial encounter Status: Acute Assessment and Plan: Patient reports falling out of her recliner the day prior to admission. She denies hitting her head or LOC. Reports severe neck pain since this fall. Denies tingling/numbness/shooting pains. - Head CT: No acute intracranial hemorrhage or suspicious mass effect - C spine CT: significant degenerative disease without acute fracture - PT/OT (2) DVT (deep venous thrombosis): Qualifiers: Affected thrombotic vein of extremity: tibial Chronicity: acute DVT location: lower extremity Laterality: right Qualified Code(s): I82.441 - Acute embolism and thrombosis of right tibial vein Code(s): I82.409 - Acute embolism and thrombosis of unspecified deep veins of unspecified lower extremity Status: Acute Assessment and Plan: Patient presents with increased weakness and lower extremity swelling - CXR: Subsegmental right basilar atelectasis/consolidation. Mild diffuse interstitial edema versus chronic interstitial change - Venous doppler: Inadequate visualization of multiple lower extremity veins bilaterally as detailed above. DVT visualized in the right posterior tibial vein. No other thrombus detected within the adequately visualized veins. - VQ scan (patient allergic to contrast): Pulmonary embolism absent (very low probability). - Echo: LVEF 55-60% with normal diastolic function, mild pulmonary hypertension and dilated inferior vena cava consistent with elevated right atrial pressure Anticoagulation: warfarin 7 mg daily, INR 3.2 on am labs. Due to increased INR will decrease dose to 4 mg today and reassess INR on am labs. 09/25: INR 4.1, warfarin placed on hold. Resume as appropriate, repeat PT/INR on am labs. (3) Acute on chronic diastolic CHF (congestive heart failure): Code(s): I50.33 - Acute on chronic diastolic (congestive) heart failure Status: Acute Assessment and Plan: - Furosemide 40 mg PO daily - Echo: LVEF 55-60% with normal diastolic function, mild pulmonary hypertension and dilated inferior vena cava consistent with elevated right atrial pressure - Monitor vital signs, I&Os, BUN/creatinine, daily weights, neuro status and patient is a fall risk - Monitor serum electrolytes, Keep serum Potassium>4 and serum Magnesium>2 and CBC Patient does have significant orthopnea on admission likely due to a combination of heart failure and likely previously undiagnosed/untreated obstructive sleep apnea. Per prior GIANNI sign out she discussed patient with pulmonology, Dr. Schwartz on 09/21 who gave the following recommendations: blood gas on room air: pH 7.524, pCO2 33.1, pO2 64.2, HCO3 26.7 TSH 0.879 apnea link on room air: 121 minutes with spo2 < 88% apnea link on 2 liters overnight: no hypoxia noted sleep study outpatient. (4) Pulmonary edema: Qualifiers: Chronicity: acute Qualified Code(s): J81.0 - Acute pulmonary edema Code(s): J81.1 - Chronic pulmonary edema Status: Acute Assessment and Plan: - Furosemide 40 mg ivp daily . - Echo: LVEF 55-60% with normal diastolic function, mild pulmonary hypertension and dilated inferior vena cava consistent with elevated right atrial pressure - Monitor vital signs, I&Os, BUN/creatinine, daily weights, neuro status and patient is a fall risk - Monitor serum electrolytes, Keep serum Potassium>4 and serum Magnesium>2 and CBC Patient does have significant orthopnea on admission likely due to a combination of heart failure and likely previously undiagnosed/untreated obstructive sleep apnea. Per prior GIANNI sign out she discussed patient with pulmonology, Dr. Schwartz on 09/21 who gave the following recommendations: blood gas on room air: pH 7.524, pCO2 33.1, pO2 64.2, HCO3 26.7 TSH 0.879 apnea link on room air: 121 minutes with spo2 < 88% apnea link on 2 liters overnight: no hypoxia noted sleep study outpatient. (5) Hyponatremia: Code(s): E87.1 - Hypo-osmolality and hyponatremia Status: Acute Assessment and Plan: Na was 140 on admission, continuing to downtrend. Possible that patient has been over diuresed. - 128 on am labs - 500 NS bolus @ 75 ml/hr x1 - lasix IV changed to 40 PO daily - add urine osmolality, serum osmolality, and urine sodium - no focal deficits on exam, situational/short term memory recall (6) UTI (urinary tract infection): Code(s): N39.0 - Urinary tract infection, site not specified Status: Acute Assessment and Plan: - UC obtained on 09/19: klebsiella pneumoniae - started on Augmentin 875-125 mg 1 tab PO q 12 on 09/21-09/27 (7) Type 2 diabetes mellitus with diabetic polyneuropathy: Code(s): E11.42 - Type 2 diabetes mellitus with diabetic polyneuropathy Status: Acute Assessment and Plan: - hypoglycemia protocol - POC blood glucose ACHS - home medication - metformin 500 mg BID and pioglitazone 30 mg daily - correct regimen ordered - low dose TIDWM - A1C 6.5 on 03/19 (8) Noncompliance with medication regimen: Code(s): Z91.148 - Patient's other noncompliance with medication regimen for other reason Status: Acute Assessment and Plan: Encourage compliance. (9) Morbid obesity with BMI of 45.0-49.9, adult: Code(s): E66.01 - Morbid (severe) obesity due to excess calories; Z68.42 - Body mass index [BMI] 45.0-49.9, adult Status: Acute Assessment and Plan: 2 gram sodium consistent carb diet. Encourage activity. Time Spent With Patient Time with patient: 25 - 35 minutes Subjective Date/time seen: 09/25/24 07:29 Interval history: 78-year-old female with past medical history of DVTs, grade 1 diastolic dysfunction, rheumatoid arthritis, chronic kidney disease stage III and morbid obesity who presented to the hospital from home due to increased weakness and lower extremity swelling. Patient is pleasant lying in bed. States that her pain is slightly improved and is noticeably less weak in her upper extremities. She has no other complaints denying chest pain, shortness a breath, palpitations, nausea / vomiting, abdominal pain. Patient notes that she has not had a bowel movement about 4 days. Patient started on a bowel regimen. Patients INR was super therapeutic, warfarin placed on hold. Patient denies tingling/numbness or shooting pain to the lower extremities. Review of Systems Review of Systems: All systems reviewed & are unremarkable except as noted in HPI and below Exam Narrative: AF HR 84 RR 18 Spo2 100 BP 132/53 General: female in no acute respiratory distress who is nontoxic appearing, sitting up in bed. HEENT: Normocephalic. Atraumatic. Extraocular movement intact. Sclera clear and anicteric. No facial asymmetry. Pain when moving neck to the right, improved from yesterday. Chest: Lungs are clear but diminished to auscultation bilaterally. No wheezes or crackles. CV: Heart was regular rate and rhythm. S1-S2. No murmurs, gallops, or rubs. Abd: Abdomen was soft. Nontender. Nondistended. Positive bowel sounds. No organomegaly or masses. Ext: No clubbing, cyanosis. Trivial pedal edema. 2+ DP pulses bilaterally. Neuro: Patient is alert and oriented x4. Cranial nerves 2-12 are intact. Speech is clear. Objective Data Vital Signs Vital Signs: Vital Signs - 24 hr 09/24/24 08:54 09/24/24 10:13 09/24/24 14:00 Temperature 98.0 F Pulse Rate 77 Respiratory Rate 20 20 Blood Pressure 121/44 L Pulse Oximetry 94 94 96 Oxygen Delivery Room Air Room Air 09/24/24 22:00 09/25/24 05:59 Temperature 97.7 F 98.4 F Pulse Rate 86 84 Respiratory Rate 18 18 Blood Pressure 113/45 L 132/53 L Pulse Oximetry 92 100 Oxygen Delivery Intake/Output Intake/Output: Intake & Output 09/22/24 09/23/24 09/24/24 09/25/24 23:59 23:59 23:59 23:59 Intake Total 1020 1870 1170 Output Total 1250 1300 1050 500 Balance -230 570 120 -500 Meds/Results Medications: Active Medications Generic Name Dose Route Start Last Admin Trade Name Freq PRN Reason Stop Dose Admin Acetaminophen 650 mg 09/18/24 17:39 09/24/24 09:01 Acetaminophen 325 Mg Tablet PO 650 mg Q4H PRN Administration Mild Pain (1-3) or Fever Hydrocodone Bitart/Acetaminophen 1 tab 09/18/24 17:39 09/24/24 21:06 Hydrocodone/Acetaminophen (*Crx) 5-325 Mg Tablet PO 1 tab Q4H PRN Administration Pain Rated 4-6 Amoxicillin/Clavulanate Potassium 1 tablet 09/21/24 14:00 09/24/24 20:59 Amoxicillin/Clavulanate K 875-125 Mg Tab PO 09/27/24 21:01 1 tablet Q12HR VALENTIN Administration Atorvastatin Calcium 20 mg 09/19/24 09:00 09/24/24 08:54 Atorvastatin 20 Mg Tablet PO 20 mg DAILY VALENTIN Administration Dextrose 12.5 gm 09/18/24 21:00 Dextrose 50% 25 Gm/50 Ml Syringe IV PUSH PRN PRN Hypoglycemia Protocol Furosemide 40 mg 09/24/24 09:00 09/24/24 08:54 Furosemide Inj 40 Mg/4 Ml Vial IV PUSH 40 mg DAILY VALENTIN Administration Gabapentin 100 mg 09/22/24 13:00 09/24/24 16:16 Gabapentin 100 Mg Capsule PO 100 mg TID VALENTIN Administration Glucagon 1 mg 09/18/24 21:00 Glucagon For Inj 1 Mg Vial IM PRN PRN Hypoglycemia Protocol Glucose 15 gm 09/18/24 21:00 Glucose Oral Gel 15 Gm Of Glucse In 37.5 Gm Tube PO PRN PRN Hypoglycemia Protocol Guaifenesin 600 mg 09/21/24 11:20 09/24/24 20:59 Guaifenesin 12 Hr 600 Mg Tabcr PO 09/28/24 11:19 600 mg Q12HR VALENTIN Administration Dextrose 1,000 mls @ 100 mls/hr 09/18/24 21:00 Dextrose 5% 1,000 Ml IVPB PRN PRN Hypoglycemia Protocol Insulin Aspart 2 - 5 units 09/19/24 08:00 09/24/24 17:18 Insulin Aspart (*Bkc) 100 Units/Ml SUB-Q 2 units TIDWM VALENTIN Administration Protocol Insulin Aspart 1 - 2 units 09/18/24 21:00 09/24/24 21:00 Insulin Aspart (*Bkc) 100 Units/Ml SUB-Q 1 units HS VALENTIN Administration Protocol Lisinopril 5 mg 09/19/24 09:00 09/24/24 08:54 Lisinopril 5 Mg Tablet PO 5 mg QAM VALENTIN Administration Multi-Ingred Cream/Lotion/Oil/Oint 1 applic 09/19/24 12:05 09/24/24 08:54 Eucerin Cream 120 Gm Jar TOPICAL 1 applic DAILY VALENTIN Administration Ondansetron HCl 4 mg 09/18/24 17:39 Ondansetron Inj 4 Mg/2 Ml Vial IV PUSH Q4H PRN Nausea Pantoprazole Sodium 40 mg 09/19/24 09:00 09/24/24 08:54 Pantoprazole 40 Mg Tablet PO 40 mg DAILY VALENTIN Administration Perflutren Lipid Microsphere 0 ml 09/23/24 08:48 Perflutren Lipid Microspheres 1.5 Ml Vial Diluted To 10 Ml Total Volume IV PUSH 09/26/24 08:48 ONCE PRN adequate visualization Protocol Pioglitazone HCl 30 mg 09/19/24 09:00 09/24/24 08:54 Pioglitazone Hcl 30 Mg Tablet PO 30 mg DAILY VALENTIN Administration Warfarin Sodium 2 mg 09/19/24 17:00 09/23/24 16:21 Warfarin (*Pbkc) 2 Mg Tablet PO 2 mg DAILY@1700 VALENTIN Administration Warfarin Sodium 4 mg 09/24/24 17:00 09/24/24 16:16 Warfarin (*Pbkc) 4 Mg Tablet PO 4 mg DAILY@1700 VALENTIN Administration Radiology Results: ITS Impressions Chest X-Ray 09/18/24 15:03 IMPRESSION: Subsegmental right basilar atelectasis/consolidation. Mild diffuse interstitial edema versus chronic interstitial change Venous Doppler Study 09/18/24 16:26 IMPRESSION: Inadequate visualization of multiple lower extremity veins bilaterally as detailed above. DVT visualized in the right posterior tibial vein. No other thrombus detected within the adequately visualized veins. Head CT 09/24/24 20:12 Impression: No acute intracranial hemorrhage or suspicious mass effect. Cervical Spine CT 09/24/24 20:14 Impression: Significant degenerative disease, without acute fracture. Labs Labs: Laboratory Results - last 24 hr 09/24/24 09/24/24 09/24/24 07:32 11:42 17:01 WBC RBC Hgb Hct MCV MCH MCHC RDW Plt Count MPV Immature Gran % (Auto) Neut % (Auto) Lymph % (Auto) [place] % (Auto) Eos % (Auto) Baso % (Auto) Lymph # (Auto) [place] # (Auto) Eos # (Auto) Baso # (Auto) Abs Immat Gran (auto) Absolute Neuts (auto) Absolute Nucleated RBC Nucleated RBC % Sodium Potassium Chloride Carbon Dioxide Anion Gap BUN Creatinine Estim Creat Clear Calc Estimated GFR Glucose POC Capillary Glucose 174 H 225 H 250 H Calcium Magnesium Total Bilirubin AST ALT Alkaline Phosphatase Total Protein Albumin 09/24/24 09/25/24 20:23 05:28 WBC 13.4 H RBC 3.20 L Hgb 10.4 L Hct 31.8 L MCV 99.4 MCH 32.5 MCHC 32.7 RDW 13.7 Plt Count 244 MPV 11.6 H Immature Gran % (Auto) 0.9 H Neut % (Auto) 75.7 H Lymph % (Auto) 10.6 L [place] % (Auto) 11.4 H Eos % (Auto) 1.2 Baso % (Auto) 0.2 Lymph # (Auto) 1.42 [place] # (Auto) 1.5 H Eos # (Auto) 0.2 Baso # (Auto) 0.0 Abs Immat Gran (auto) 0.12 H Absolute Neuts (auto) 10.1 H Absolute Nucleated RBC 0.000 Nucleated RBC % 0.0 Sodium 128 L Potassium 4.0 Chloride 91 L Carbon Dioxide 31 H Anion Gap 6 BUN 50 H Creatinine 1.13 H Estim Creat Clear Calc 43 Estimated GFR 46 L Glucose 202 H POC Capillary Glucose 277 H Calcium 8.5 Magnesium 2.0 Total Bilirubin 0.6 AST 17 ALT 11 Alkaline Phosphatase 57 Total Protein 6.0 L Albumin 2.8 L Quality VTE Prophylaxis VTE prophylaxis: pharmacologic ordered (warfarin placed on hold for super therapeutic INR level )
[2024-09-25 07:59] VITALS: BP 158/62; PULSE 75; RESP 16; TEMP 36.5; O2SAT 96
[2024-09-25 08:01] LABS: Glucose Point of Care 178 mg/dl (65-105)
[2024-09-25] MEDS: HYDROcodone/acetaminophen (*CRX) 5-325 MG TABLET 1 TAB PO ×2 (08:04→20:27)
[2024-09-25] MEDS: ATORVASTATIN 20 MG TABLET PO (08:04)
[2024-09-25] MEDS: AMOXICILLIN/CLAVULANATE K 875-125 MG TAB 1 TABLET PO ×2 (08:04→20:27)
[2024-09-25] MEDS: lisinopriL 5 MG TABLET PO (08:04)
[2024-09-25] MEDS: PANTOPRAZOLE 40 MG TABLET PO (08:04)
[2024-09-25] MEDS: guaiFENesin 12 HR 600 MG TABCR PO ×2 (08:04→20:27)
[2024-09-25] MEDS: GABAPENTIN 100 MG CAPSULE PO ×3 (08:04→17:30)
[2024-09-25] MEDS: PIOGLITAZONE HCL 30 MG TABLET PO (08:04)
[2024-09-25] MEDS: FUROSEMIDE INJ 40 MG/4 ML VIAL IV PUSH (08:05)
[2024-09-25 08:17] VITALS: O2SAT 96
[2024-09-25 08:50] LABS: Sodium Urine Random 42 meq/L
--- NOTE | 2024-09-25 11:05 | PCNWS ---
Weekly nutritional screen. Patient is tolerating current diet with adequate intake. No weight loss reported. No nutritional needs at this time.
[2024-09-25] MEDS: EUCERIN CREAM 120 GM JAR 1 APPLIC TOPICAL (11:06)
[2024-09-25] MEDS: SODIUM CHLORIDE 0.9% IV 500 ML 75 ML IV CONT (11:06)
[2024-09-25 11:57] LABS: Glucose Point of Care 196 mg/dl (65-105)
[2024-09-25 13:30] VITALS: BMI 10.0
[2024-09-25 14:00] VITALS: BP 109/42; PULSE 136; RESP 18; TEMP 36.2; O2SAT 97
--- NOTE | 2024-09-25 14:35 | PCOTNOTE ---
Attempted Patient for P.M. OT treatment session. Patient is in bed. Patient stated she did PT today, that was a lot and is done . Patient refused to participate in any activities and states, 'it's to much , I can not do it .
--- NOTE | 2024-09-25 14:48 | PCPTNOTE ---
On 09/25/24, the student, BERNARD Vigil, provided care and completed [facility] documentation on this patient. I have reviewed the student's documentation and agree with the findings.
[2024-09-25] MEDS: ACETAMINOPHEN 325 MG TABLET 650 MG PO (15:18)
[2024-09-25 17:15] LABS: Glucose Point of Care 220 mg/dl (65-105)
[2024-09-25] MEDS: INSULIN ASPART (*BKC) 100 UNITS/ML SUB-Q ×2 (17:31→20:28)
[2024-09-25] MEDS: SENNA/DOCUSATE SODIUM TABLET 1 TAB PO (20:27)
[2024-09-25 20:33] VITALS: BP 137/81; PULSE 91; RESP 18; TEMP 36.8; O2SAT 97
[2024-09-25 20:48] LABS: Glucose Point of Care 260 mg/dl (65-105)
[2024-09-26] MEDS: ACETAMINOPHEN 325 MG TABLET 650 MG PO (05:15)
[2024-09-26 05:20] LABS: Basophils Absolute Auto 0.1 K/mm3 (0.0-0.1); Basophils Percent Auto 0.4 % (0.2-1.2); Eosinophils Absolute Auto 0.3 K/mm3 (0-0.3); Eosinophils Percent Auto 2.4 % (0-4.4); Hematocrit 31.9 % (37.0-47.0); Hemoglobin 9.8 g/dL (12.0-15.0); Immature Granulocyte Percent A 0.8 % (0-0.5); Lymphocytes Percent Auto 13.5 % (18.3-44.2); Mean Corpuscular HGB Conc 30.7 g/dl (32-36); Mean Corpuscular Hemoglobin 31.4 pg (26-34); Mean Corpuscular Volume 102.2 fl (80-100); Mean Platelet Volume 11.2 fl (7.4-10.4); Monocytes Absolute Auto 1.4 K/mm3 (0.1-0.6); Monocytes Percent Auto 11.6 % (2.6-8.5); Neutrophils Absolute Auto 8.5 K/mm3 (1.3-6.7); Neutrophils Percent Auto 71.3 % (45.5-73.1); Platelet Count Result 267 k/mm3 (150-375); Red Blood Count 3.12 M/mm3 (4.2-5.4); Red Cell Distribution Width 13.9 % (11.5-14.5); White Blood Count 11.9 K/mm3 (4.5-10.0)
[2024-09-26 05:34] LABS: Alanine Aminotransferase 12 U/L (6-35); Albumin Level 2.7 g/dL (3.5-5.1); Alkaline Phosphatase 56 U/L (38-126); Anion Gap 4 mmol/L (4-12); Aspartate Amino Transferase 18 U/L (14-36); Bilirubin,Total 0.6 mg/dL (0.2-1.3); Blood Urea Nitrogen 53 mg/dL (7-17); Calcium 8.3 mg/dL (8.4-10.2); Carbon Dioxide 32 mmol/L (22-30); Chloride 92 mmol/L (98-107); Estimated CRCL calculation 45 ml/min; Estimated Glomerular Filt Rate 49; Glucose 191 mg/dL (65-110); Potassium 4.3 mmol/L (3.4-5.0); Sodium 128 mmol/L (137-145)
[2024-09-26 05:37] LABS: INR 3.6; Prothrombin Time 36.3 Seconds (11.1-14.7)
[2024-09-26 06:00] VITALS: BP 115/45; PULSE 72; RESP 12; TEMP 36.2; O2SAT 95
[2024-09-26 08:00] VITALS: PULSE 72; RESP 12; O2SAT 95
[2024-09-26 08:11] LABS: Glucose Point of Care 187 mg/dl (65-105)
[2024-09-26] MEDS: polyethylene glycoL 3350 17 GM POWD.PACK PO (08:45)
[2024-09-26] MEDS: lisinopriL 5 MG TABLET PO (08:46)
[2024-09-26] MEDS: AMOXICILLIN/CLAVULANATE K 875-125 MG TAB 1 TABLET PO ×2 (08:46→20:25)
[2024-09-26] MEDS: PIOGLITAZONE HCL 30 MG TABLET PO (08:46)
[2024-09-26] MEDS: GABAPENTIN 100 MG CAPSULE PO ×3 (08:46→17:35)
[2024-09-26] MEDS: PANTOPRAZOLE 40 MG TABLET PO (08:46)
[2024-09-26] MEDS: guaiFENesin 12 HR 600 MG TABCR PO ×2 (08:46→20:25)
[2024-09-26] MEDS: ATORVASTATIN 20 MG TABLET PO (08:46)
[2024-09-26] MEDS: FUROSEMIDE 40 MG TABLET PO (08:46)
[2024-09-26] MEDS: EUCERIN CREAM 120 GM JAR 1 APPLIC TOPICAL (08:47)
--- NOTE | 2024-09-26 10:50 | P.PNIM_ITS ---
Progress Note: A&P Assessment and Plan (1) DVT (deep venous thrombosis): Qualifiers: Affected thrombotic vein of extremity: tibial Chronicity: acute DVT location: lower extremity Laterality: right Qualified Code(s): I82.441 - Acute embolism and thrombosis of right tibial vein Code(s): I82.409 - Acute embolism and thrombosis of unspecified deep veins of unspecified lower extremity Status: Acute Assessment and Plan: Patient presents with increased weakness and lower extremity swelling - CXR: Subsegmental right basilar atelectasis/consolidation. Mild diffuse interstitial edema versus chronic interstitial change - Venous doppler: Inadequate visualization of multiple lower extremity veins bilaterally as detailed above. DVT visualized in the right posterior tibial vein. No other thrombus detected within the adequately visualized veins. - VQ scan (patient allergic to contrast): Pulmonary embolism absent (very low probability). - Echo: LVEF 55-60% with normal diastolic function, mild pulmonary hypertension and dilated inferior vena cava consistent with elevated right atrial pressure Anticoagulation: warfarin 7 mg daily, INR 3.2 on am labs. Due to increased INR will decrease dose to 4 mg today and reassess INR on am labs. 09/25: INR 4.1, warfarin placed on hold. Resume as appropriate, repeat PT/INR on am labs. 09/26: INR 3.6, warfarin still on hold (2) Acute on chronic diastolic CHF (congestive heart failure): Code(s): I50.33 - Acute on chronic diastolic (congestive) heart failure Status: Acute Assessment and Plan: - Furosemide 40 mg PO daily - Echo: LVEF 55-60% with normal diastolic function, mild pulmonary hypertension and dilated inferior vena cava consistent with elevated right atrial pressure - Monitor vital signs, I&Os, BUN/creatinine, daily weights, neuro status and patient is a fall risk - Monitor serum electrolytes, Keep serum Potassium>4 and serum Magnesium>2 and CBC Patient does have significant orthopnea on admission likely due to a combination of heart failure and likely previously undiagnosed/untreated obstructive sleep apnea. Per prior GIANNI sign out she discussed patient with pulmonology, Dr. Schwartz on 09/21 who gave the following recommendations: blood gas on room air: pH 7.524, pCO2 33.1, pO2 64.2, HCO3 26.7 TSH 0.879 apnea link on room air: 121 minutes with spo2 < 88% apnea link on 2 liters overnight: no hypoxia noted sleep study outpatient. (3) Pulmonary edema: Qualifiers: Chronicity: acute Qualified Code(s): J81.0 - Acute pulmonary edema Code(s): J81.1 - Chronic pulmonary edema Status: Acute Assessment and Plan: - Furosemide 40 mg ivp daily . - Echo: LVEF 55-60% with normal diastolic function, mild pulmonary hypertension and dilated inferior vena cava consistent with elevated right atrial pressure - Monitor vital signs, I&Os, BUN/creatinine, daily weights, neuro status and patient is a fall risk - Monitor serum electrolytes, Keep serum Potassium>4 and serum Magnesium>2 and CBC Patient does have significant orthopnea on admission likely due to a combination of heart failure and likely previously undiagnosed/untreated obstructive sleep apnea. Per prior GIANNI sign out she discussed patient with pulmonology, Dr. Schwartz on 09/21 who gave the following recommendations: blood gas on room air: pH 7.524, pCO2 33.1, pO2 64.2, HCO3 26.7 TSH 0.879 apnea link on room air: 121 minutes with spo2 < 88% apnea link on 2 liters overnight: no hypoxia noted sleep study outpatient. (4) Hyponatremia: Code(s): E87.1 - Hypo-osmolality and hyponatremia Status: Acute Assessment and Plan: Na was 140 on admission, continuing to downtrend. Possible that patient has been over diuresed. - 128 on am labs - 500 NS bolus @ 75 ml/hr x1 - lasix IV changed to 40 PO daily - add urine osmolality, serum osmolality, and urine sodium - no focal deficits on exam, situational/short term memory recall 09/26: Patient consuming large amounts of free water daily Patterson in place Fluid restriction 1800 mL started this afternoon Furosemide returned to 40 mg oral daily Check labs in AM (5) UTI (urinary tract infection): Code(s): N39.0 - Urinary tract infection, site not specified Status: Acute Assessment and Plan: - UC obtained on 09/19: klebsiella pneumoniae - started on Augmentin 875-125 mg 1 tab PO q 12 on 09/21-09/[address] due to hyponatremia, watching I&O carefully Patient unlikely to consent to removal due to poor mobility and dropped bladder causing baseline incontinence and reinitiation of furosemide. SNF care pending lab stability (6) Type 2 diabetes mellitus with diabetic polyneuropathy: Code(s): E11.42 - Type 2 diabetes mellitus with diabetic polyneuropathy Status: Acute Assessment and Plan: - hypoglycemia protocol - POC blood glucose ACHS - home medication - metformin 500 mg BID and pioglitazone 30 mg daily - correct regimen ordered - low dose TIDWM - A1C 6.5 on 03/19 (7) Noncompliance with medication regimen: Code(s): Z91.148 - Patient's other noncompliance with medication regimen for other reason Status: Acute Assessment and Plan: * Encourage compliance. * Not actually taking water pill as outpatient but claimed she was (patient disclosed this on 09/26) (8) Morbid obesity with BMI of 45.0-49.9, adult: Code(s): E66.01 - Morbid (severe) obesity due to excess calories; Z68.42 - Body mass index [BMI] 45.0-49.9, adult Status: Acute Assessment and Plan: * 2 gram sodium consistent carb diet. * Encourage activity. * 09/26-Removed sodium restriction due to hyponatremia (9) Fall: Code(s): W19.XXXA - Unspecified fall, initial encounter Status: Acute Assessment and Plan: Patient reports falling out of her recliner the day prior to admission. She denies hitting her head or LOC. Reports severe neck pain since this fall. Denies tingling/numbness/shooting pains. - Head CT: No acute intracranial hemorrhage or suspicious mass effect - C spine CT: significant degenerative disease without acute fracture - PT/OT - SNF needed on discharge (10) Supratherapeutic INR: Code(s): R79.1 - Abnormal coagulation profile Status: Acute Assessment and Plan: 09/26: On warfarin for treatment of DVT INR 4.1 on 09/25 and 3.6 on 09/26 Warfarin on hold for now, resume when INR improves Plan Disposition to SNF pending improvement in Sodium and INR, anticipate Saturday discharge at the earliest Time Spent With Patient Time with patient: Greater than 35 minutes Subjective Date/time seen: 09/26/24 10:50 Interval history: Patient reports neck pain, will give muscle relaxer BID instead of only at bedtime and give heating pad. Patient denies dyspnea, chest pain, nausea, vomiting. She has Patterson in place due to constant incontinence and diminshed ability to turn/stand/use toilet. Patient reports her leg swelling is a lot better than when she was admitted. She reports she would not take her water pill at home but told everyone she had been taking it. She said it made her urinate constantly and overflow incontinence briefs with large pads so she quit taking them. Review of Systems Review of Systems: All systems reviewed & are unremarkable except as noted in HPI and below Exam Narrative: General: female in no acute respiratory distress who is nontoxic appearing, sitting up in bed. HEENT: Normocephalic. Atraumatic. Extraocular movement intact. Sclera clear and anicteric. No facial asymmetry. Pain when moving neck to the right Chest: Lungs are clear but diminished to auscultation bilaterally. No wheezes or crackles. CV: Heart was regular rate and rhythm. S1-S2. No murmurs, gallops, or rubs. Abd: Abdomen was soft. Nontender. Nondistended. Positive bowel sounds. No organomegaly or masses. Ext: No clubbing, cyanosis. Bilateral leg/foot edema present but improved per patient Neuro: Patient is alert and oriented x4. Cranial nerves 2-12 are intact. Speech is clear. Objective Data Vital Signs Vital Signs: Vital Signs - 24 hr 09/25/24 14:00 09/25/24 20:18 09/25/24 20:33 Temperature 36.2 C L 36.8 C Pulse Rate 136 H 91 Respiratory Rate 18 18 Blood Pressure 109/42 L 137/81 Pulse Oximetry 97 97 Oxygen Delivery Room Air Fraction of Inspired Oxygen 09/26/24 06:00 09/26/24 08:00 Temperature 36.2 C L Pulse Rate 72 72 Respiratory Rate 12 12 Blood Pressure 115/45 L Pulse Oximetry 95 95 Oxygen Delivery Room Air Fraction of Inspired Oxygen 28 Intake/Output Intake/Output: Intake & Output 09/23/24 09/24/24 09/25/24 09/26/24 23:59 23:59 23:59 23:59 Intake Total 1870 1170 1200 300 Output Total 1300 1050 950 600 Balance 570 120 250 -300 Meds/Results Medications: Active Medications Generic Name Dose Route Start Last Admin Trade Name Freq PRN Reason Stop Dose Admin Acetaminophen 650 mg 09/18/24 17:39 09/26/24 05:15 Acetaminophen 325 Mg Tablet PO 650 mg Q4H PRN Administration Mild Pain (1-3) or Fever Hydrocodone Bitart/Acetaminophen 1 tab 09/18/24 17:39 09/25/24 20:27 Hydrocodone/Acetaminophen (*Crx) 5-325 Mg Tablet PO 1 tab Q4H PRN Administration Pain Rated 4-6 Amoxicillin/Clavulanate Potassium 1 tablet 09/21/24 14:00 09/26/24 08:46 Amoxicillin/Clavulanate K 875-125 Mg Tab PO 09/27/24 21:01 1 tablet Q12HR VALENTIN Administration Atorvastatin Calcium 20 mg 09/19/24 09:00 09/26/24 08:46 Atorvastatin 20 Mg Tablet PO 20 mg DAILY VALENTIN Administration Dextrose 12.5 gm 09/18/24 21:00 Dextrose 50% 25 Gm/50 Ml Syringe IV PUSH PRN PRN Hypoglycemia Protocol Furosemide 40 mg 09/26/24 09:00 09/26/24 08:46 Furosemide 40 Mg Tablet PO 40 mg DAILY VALENTIN Administration Gabapentin 100 mg 09/22/24 13:00 09/26/24 08:46 Gabapentin 100 Mg Capsule PO 100 mg TID VALENTIN Administration Glucagon 1 mg 09/18/24 21:00 Glucagon For Inj 1 Mg Vial IM PRN PRN Hypoglycemia Protocol Glucose 15 gm 09/18/24 21:00 Glucose Oral Gel 15 Gm Of Glucse In 37.5 Gm Tube PO PRN PRN Hypoglycemia Protocol Guaifenesin 600 mg 09/21/24 11:20 09/26/24 08:46 Guaifenesin 12 Hr 600 Mg Tabcr PO 09/28/24 11:19 600 mg Q12HR VALENTIN Administration Dextrose 1,000 mls @ 100 mls/hr 09/18/24 21:00 Dextrose 5% 1,000 Ml IVPB PRN PRN Hypoglycemia Protocol Insulin Aspart 2 - 5 units 09/19/24 08:00 09/26/24 08:45 Insulin Aspart (*Bkc) 100 Units/Ml SUB-Q Not Given TIDWM [facility] Protocol Insulin Aspart 1 - 2 units 09/18/24 21:00 09/25/24 20:28 Insulin Aspart (*Bkc) 100 Units/Ml SUB-Q 1 units HS VALENTIN Administration Protocol Lisinopril 5 mg 09/19/24 09:00 09/26/24 08:46 Lisinopril 5 Mg Tablet PO 5 mg QAM VALENTIN Administration Multi-Ingred Cream/Lotion/Oil/Oint 1 applic 09/19/24 12:05 09/26/24 08:47 Eucerin Cream 120 Gm Jar TOPICAL 1 applic DAILY VALENTIN Administration Ondansetron HCl 4 mg 09/18/24 17:39 Ondansetron Inj 4 Mg/2 Ml Vial IV PUSH Q4H PRN Nausea Pantoprazole Sodium 40 mg 09/19/24 09:00 09/26/24 08:46 Pantoprazole 40 Mg Tablet PO 40 mg DAILY VALENTIN Administration Pioglitazone HCl 30 mg 09/19/24 09:00 09/26/24 08:46 Pioglitazone Hcl 30 Mg Tablet PO 30 mg DAILY VALENTIN Administration Polyethylene Glycol 17 gm 09/26/24 09:00 09/26/24 08:45 Polyethylene Glycol 3350 17 Gm Powd.Pack PO 17 gm QAM VALENTIN Administration Senna/Docusate Sodium 1 tab 09/25/24 21:00 09/25/24 20:27 Senna/Docusate Sodium Tablet PO 1 tab HS VALENTIN Administration Warfarin Sodium 2 mg 09/19/24 17:00 09/23/24 16:21 Warfarin (*Pbkc) 2 Mg Tablet PO 2 mg DAILY@1700 VALENTIN Administration Warfarin Sodium 4 mg 09/24/24 17:00 09/24/24 16:16 Warfarin (*Pbkc) 4 Mg Tablet PO 4 mg DAILY@1700 VALENTIN Administration Radiology Results: ITS Impressions Chest X-Ray 09/18/24 15:03 IMPRESSION: Subsegmental right basilar atelectasis/consolidation. Mild diffuse interstitial edema versus chronic interstitial change Venous Doppler Study 09/18/24 16:26 IMPRESSION: Inadequate visualization of multiple lower extremity veins bilaterally as detailed above. DVT visualized in the right posterior tibial vein. No other thrombus detected within the adequately visualized veins. Head CT 09/24/24 20:12 Impression: No acute intracranial hemorrhage or suspicious mass effect. Cervical Spine CT 09/24/24 20:14 Impression: Significant degenerative disease, without acute fracture. Labs Labs: Laboratory Results - last 24 hr 09/25/24 09/25/24 09/25/24 11:54 17:00 20:26 WBC RBC Hgb Hct MCV MCH MCHC RDW Plt Count MPV Immature Gran % (Auto) Neut % (Auto) Lymph % (Auto) Dukes % (Auto) Eos % (Auto) Baso % (Auto) Lymph # (Auto) Dukes # (Auto) Eos # (Auto) Baso # (Auto) Abs Immat Gran (auto) Absolute Neuts (auto) Absolute Nucleated RBC Nucleated RBC % PT INR Sodium Potassium Chloride Carbon Dioxide Anion Gap BUN Creatinine Estim Creat Clear Calc Estimated GFR Glucose POC Capillary Glucose 196 H 220 H 260 H Calcium Magnesium Total Bilirubin AST ALT Alkaline Phosphatase Total Protein Albumin 09/26/24 09/26/24 05:06 08:09 WBC 11.9 H RBC 3.12 L Hgb 9.8 L Hct 31.9 L MCV 102.2 H MCH 31.4 MCHC 30.7 L RDW 13.9 Plt Count 267 MPV 11.2 H Immature Gran % (Auto) 0.8 H Neut % (Auto) 71.3 Lymph % (Auto) 13.5 L Dukes % (Auto) 11.6 H Eos % (Auto) 2.4 Baso % (Auto) 0.4 Lymph # (Auto) 1.60 Dukes # (Auto) 1.4 H Eos # (Auto) 0.3 Baso # (Auto) 0.1 Abs Immat Gran (auto) 0.10 H Absolute Neuts (auto) 8.5 H Absolute Nucleated RBC 0.000 Nucleated RBC % 0.0 PT 36.3 H INR 3.6 Sodium 128 L Potassium 4.3 Chloride 92 L Carbon Dioxide 32 H Anion Gap 4 BUN 53 H Creatinine 1.08 H Estim Creat Clear Calc 45 Estimated GFR 49 L Glucose 191 H POC Capillary Glucose 187 H Calcium 8.3 L Magnesium 2.0 Total Bilirubin 0.6 AST 18 ALT 12 Alkaline Phosphatase 56 Total Protein 6.0 L Albumin 2.7 L Pulse Oximetry SpO2 results: 95-97% on room air Attestation: I personally reviewed and interpreted this pulse oximetry as follows: Interpretation: no need for supplemental oxygenation at this time Quality VTE Prophylaxis VTE prophylaxis: pharmacologic ordered (warfarin placed on hold for super therapeutic INR level ) Hospitalist MIPS Advance Care Plan I have confirmed that the patient's Advanced Care Plan is present, code status is documented, or surrogate decision maker is listed in patient medical record.: Yes Medication Reconciliation I have utilized all available resources to obtain, update and review the patients current medications (includes all prescriptions, OTC, herbals, cannabis, and nutritional supplements).: Yes
[2024-09-26 11:54] LABS: Glucose Point of Care 228 mg/dl (65-105)
[2024-09-26] MEDS: INSULIN ASPART (*BKC) 100 UNITS/ML SUB-Q ×2 (12:40→17:35)
[2024-09-26 14:00] VITALS: BP 136/50; PULSE 103; RESP 18; TEMP 36.3; O2SAT 96
[2024-09-26 16:56] LABS: Glucose Point of Care 232 mg/dl (65-105)
[2024-09-26 19:46] VITALS: PULSE 103; RESP 18; O2SAT 96
[2024-09-26] MEDS: SENNA/DOCUSATE SODIUM TABLET 1 TAB PO (20:25)
[2024-09-26] MEDS: HYDROcodone/acetaminophen (*CRX) 5-325 MG TABLET 1 TAB PO (20:25)
[2024-09-26] MEDS: CYCLOBENZAPRINE HCL 10 MG TABLET PO (20:25)
[2024-09-26 20:35] VITALS: BP 137/44; PULSE 86; RESP 12; TEMP 37.1; O2SAT 91
[2024-09-26 21:08] LABS: Glucose Point of Care 236 mg/dl (65-105)
[2024-09-27 06:00] VITALS: BP 137/47; PULSE 76; RESP 16; TEMP 36.4; O2SAT 94
[2024-09-27 06:24] LABS: Basophils Absolute Auto 0.1 K/mm3 (0.0-0.1); Basophils Percent Auto 0.6 % (0.2-1.2); Eosinophils Absolute Auto 0.3 K/mm3 (0-0.3); Eosinophils Percent Auto 3.1 % (0-4.4); Hemoglobin 10.6 g/dL (12.0-15.0); Immature Granulocyte Absolute 0.11 K/mm3 (0.00-0.031); Immature Granulocyte Percent A 1.1 % (0-0.5); Lymphocytes Absolute Auto 1.91 K/mm3 (0.9-3.2); Lymphocytes Percent Auto 18.7 % (18.3-44.2); Mean Corpuscular HGB Conc 32.1 g/dl (32-36); Mean Corpuscular Hemoglobin 31.8 pg (26-34); Mean Corpuscular Volume 99.1 fl (80-100); Monocytes Absolute Auto 1.2 K/mm3 (0.1-0.6); Monocytes Percent Auto 11.4 % (2.6-8.5); Neutrophils Absolute Auto 6.7 K/mm3 (1.3-6.7); Neutrophils Percent Auto 65.1 % (45.5-73.1); Platelet Count Result 335 k/mm3 (150-375); Red Blood Count 3.33 M/mm3 (4.2-5.4); Red Cell Distribution Width 13.9 % (11.5-14.5); White Blood Count 10.2 K/mm3 (4.5-10.0)
[2024-09-27 06:35] LABS: Alanine Aminotransferase 14 U/L (6-35); Albumin Level 2.8 g/dL (3.5-5.1); Alkaline Phosphatase 63 U/L (38-126); Anion Gap 7 mmol/L (4-12); Aspartate Amino Transferase 24 U/L (14-36); Bilirubin,Total 0.6 mg/dL (0.2-1.3); Blood Urea Nitrogen 52 mg/dL (7-17); Calcium 8.4 mg/dL (8.4-10.2); Carbon Dioxide 31 mmol/L (22-30); Chloride 92 mmol/L (98-107); Estimated CRCL calculation 45 ml/min; Estimated Glomerular Filt Rate 47; Glucose 162 mg/dL (65-110); Magnesium 2.3 mg/dL (1.6-2.3); Potassium 4.4 mmol/L (3.4-5.0); Sodium 130 mmol/L (137-145)
[2024-09-27 06:50] LABS: INR 3.2; Prothrombin Time 33.3 Seconds (11.1-14.7)
[2024-09-27 08:00] LABS: Glucose Point of Care 152 mg/dl (65-105)
[2024-09-27] MEDS: AMOXICILLIN/CLAVULANATE K 875-125 MG TAB 1 TABLET PO ×2 (10:26→20:48)
[2024-09-27] MEDS: ATORVASTATIN 20 MG TABLET PO (10:26)
[2024-09-27] MEDS: GABAPENTIN 100 MG CAPSULE PO ×3 (10:26→16:05)
[2024-09-27] MEDS: PANTOPRAZOLE 40 MG TABLET PO (10:26)
[2024-09-27] MEDS: PIOGLITAZONE HCL 30 MG TABLET PO (10:26)
[2024-09-27] MEDS: lisinopriL 5 MG TABLET PO (10:26)
[2024-09-27] MEDS: FUROSEMIDE 40 MG TABLET PO (10:26)
[2024-09-27] MEDS: EUCERIN CREAM 120 GM JAR 1 APPLIC TOPICAL (10:27)
[2024-09-27] MEDS: polyethylene glycoL 3350 17 GM POWD.PACK PO (10:27)
[2024-09-27] MEDS: guaiFENesin 12 HR 600 MG TABCR PO ×2 (10:27→20:47)
[2024-09-27 12:08] LABS: Glucose Point of Care 181 mg/dl (65-105)
--- NOTE | 2024-09-27 12:40 | P.PNIM_ITS ---
Progress Note: A&P Assessment and Plan (1) DVT (deep venous thrombosis): Qualifiers: Affected thrombotic vein of extremity: tibial Chronicity: acute DVT location: lower extremity Laterality: right Qualified Code(s): I82.441 - Acute embolism and thrombosis of right tibial vein Code(s): I82.409 - Acute embolism and thrombosis of unspecified deep veins of unspecified lower extremity Status: Acute Assessment and Plan: Patient presents with increased weakness and lower extremity swelling - CXR: Subsegmental right basilar atelectasis/consolidation. Mild diffuse interstitial edema versus chronic interstitial change - Venous doppler: Inadequate visualization of multiple lower extremity veins bilaterally as detailed above. DVT visualized in the right posterior tibial vein. No other thrombus detected within the adequately visualized veins. - VQ scan (patient allergic to contrast): Pulmonary embolism absent (very low probability). - Echo: LVEF 55-60% with normal diastolic function, mild pulmonary hypertension and dilated inferior vena cava consistent with elevated right atrial pressure Anticoagulation: warfarin 7 mg daily, INR 3.2 on am labs. Due to increased INR will decrease dose to 4 mg today and reassess INR on am labs. 09/25: INR 4.1, warfarin placed on hold. Resume as appropriate, repeat PT/INR on am labs. 09/26: INR 3.6, warfarin still on hold 09/27: INR 3.2, will transition to Eliquis since patient will go to SNF on discharge (2) Acute on chronic diastolic CHF (congestive heart failure): Code(s): I50.33 - Acute on chronic diastolic (congestive) heart failure Status: Acute Assessment and Plan: - Furosemide 40 mg PO daily - Echo: LVEF 55-60% with normal diastolic function, mild pulmonary hypertension and dilated inferior vena cava consistent with elevated right atrial pressure - Monitor vital signs, I&Os, BUN/creatinine, daily weights, neuro status and patient is a fall risk - Monitor serum electrolytes, Keep serum Potassium>4 and serum Magnesium>2 and CBC Patient does have significant orthopnea on admission likely due to a combination of heart failure and likely previously undiagnosed/untreated obstructive sleep apnea. Per prior GIANNI sign out she discussed patient with pulmonology, Dr. Schwartz on 09/21 who gave the following recommendations: blood gas on room air: pH 7.524, pCO2 33.1, pO2 64.2, HCO3 26.7 TSH 0.879 apnea link on room air: 121 minutes with spo2 < 88% apnea link on 2 liters overnight: no hypoxia noted sleep study outpatient. (3) Pulmonary edema: Qualifiers: Chronicity: acute Qualified Code(s): J81.0 - Acute pulmonary edema Code(s): J81.1 - Chronic pulmonary edema Status: Acute Assessment and Plan: - Furosemide 40 mg ivp daily . - Echo: LVEF 55-60% with normal diastolic function, mild pulmonary hypertension and dilated inferior vena cava consistent with elevated right atrial pressure - Monitor vital signs, I&Os, BUN/creatinine, daily weights, neuro status and patient is a fall risk - Monitor serum electrolytes, Keep serum Potassium>4 and serum Magnesium>2 and CBC Patient does have significant orthopnea on admission likely due to a combination of heart failure and likely previously undiagnosed/untreated obstructive sleep apnea. Per prior GIANNI sign out she discussed patient with pulmonology, Dr. Schwartz on 09/21 who gave the following recommendations: blood gas on room air: pH 7.524, pCO2 33.1, pO2 64.2, HCO3 26.7 TSH 0.879 apnea link on room air: 121 minutes with spo2 < 88% apnea link on 2 liters overnight: no hypoxia noted sleep study outpatient. (4) Hyponatremia: Code(s): E87.1 - Hypo-osmolality and hyponatremia Status: Acute Assessment and Plan: Na was 140 on admission, continuing to downtrend. Possible that patient has been over diuresed. - 128 on am labs - 500 NS bolus @ 75 ml/hr x1 - lasix IV changed to 40 PO daily - add urine osmolality, serum osmolality, and urine sodium - no focal deficits on exam, situational/short term memory recall 09/26: Patient consuming large amounts of free water daily Patterson in place Fluid restriction 1800 mL started this afternoon Furosemide returned to 40 mg oral daily Check labs in AM 09/27: Sodium 130 today, continue 1800 mL fluid restriction, give IV lasix 40 mg x1 today (5) UTI (urinary tract infection): Code(s): N39.0 - Urinary tract infection, site not specified Status: Acute Assessment and Plan: - UC obtained on 09/19: klebsiella pneumoniae - started on Augmentin 875-125 mg 1 tab PO q 12 on 09/21-09/[address] due to hyponatremia, watching I&O carefully Patient unlikely to consent to removal due to poor mobility and dropped bladder causing baseline incontinence and reinitiation of furosemide. SNF care pending lab stability (6) Type 2 diabetes mellitus with diabetic polyneuropathy: Code(s): E11.42 - Type 2 diabetes mellitus with diabetic polyneuropathy Status: Acute Assessment and Plan: - hypoglycemia protocol - POC blood glucose ACHS - home medication - metformin 500 mg BID and pioglitazone 30 mg daily - correct regimen ordered - low dose TIDWM - A1C 6.5 on 03/19 (7) Noncompliance with medication regimen: Code(s): Z91.148 - Patient's other noncompliance with medication regimen for other reason Status: Acute Assessment and Plan: * Encourage compliance. * Not actually taking water pill as outpatient but claimed she was (patient disclosed this on 09/26) (8) Morbid obesity with BMI of 45.0-49.9, adult: Code(s): E66.01 - Morbid (severe) obesity due to excess calories; Z68.42 - Body mass index [BMI] 45.0-49.9, adult Status: Acute Assessment and Plan: * 2 gram sodium consistent carb diet. * Encourage activity. * 09/26-Removed sodium restriction due to hyponatremia (9) Fall: Code(s): W19.XXXA - Unspecified fall, initial encounter Status: Acute Assessment and Plan: Patient reports falling out of her recliner the day prior to admission. She denies hitting her head or LOC. Reports severe neck pain since this fall. Denies tingling/numbness/shooting pains. - Head CT: No acute intracranial hemorrhage or suspicious mass effect - C spine CT: significant degenerative disease without acute fracture - PT/OT - SNF needed on discharge (10) Supratherapeutic INR: Code(s): R79.1 - Abnormal coagulation profile Status: Acute Assessment and Plan: 09/26: On warfarin for treatment of DVT INR 4.1 on 09/25 and 3.6 on 09/26 Warfarin on hold for now, resume when INR improves 09/27: INR 3.2, will switch patient to Eliquis since she will be discharged to SNF after labs improve Plan Disposition to SNF pending improvement in Sodium and INR, anticipate Saturday discharge Time Spent With Patient Time with patient: 25 - 35 minutes Subjective Date/time seen: 09/27/24 12:40 Interval history: Patient reports neck pain mildly better but she is having a lot of pain when trying to reposition legs in the bed. She reports she expected to be losing more weight by now since she is getting diuresis and not eating much. Patient placed on fluid restricted diet yesterday due to hyponatremia. Will transition patient from warfarin to Eliquis since she will be discharged to SNF once labs stabilized. Review of Systems Review of Systems: All systems reviewed & are unremarkable except as noted in HPI and below Exam Narrative: General: female in no acute respiratory distress who is nontoxic appearing, sitting up in bed. HEENT: Normocephalic. Atraumatic. Extraocular movement intact. Sclera clear and anicteric. No facial asymmetry. Pain when moving neck to the right Chest: Lungs are clear but diminished to auscultation bilaterally. No wheezes or crackles. CV: Heart was regular rate and rhythm. S1-S2. No murmurs, gallops, or rubs. Abd: Abdomen was soft. Nontender. Nondistended. Positive bowel sounds. No organomegaly or masses. Ext: No clubbing, cyanosis. Bilateral leg/foot edema present but improved per patient Neuro: Patient is alert and oriented x4. Cranial nerves 2-12 are intact. Speech is clear. Objective Data Vital Signs Vital Signs: Vital Signs - 24 hr 09/26/24 14:00 09/26/24 19:46 09/26/24 20:35 Temperature 36.3 C L 37.1 C Pulse Rate 103 H 103 H 86 Respiratory Rate 18 18 12 Blood Pressure 136/50 L 137/44 L Pulse Oximetry 96 96 91 Oxygen Delivery Room Air Fraction of Inspired Oxygen 28 09/27/24 06:00 Temperature 36.4 C Pulse Rate 76 Respiratory Rate 16 Blood Pressure 137/47 L Pulse Oximetry 94 Oxygen Delivery Fraction of Inspired Oxygen Intake/Output Intake/Output: Intake & Output 09/24/24 09/25/24 09/26/24 09/27/24 23:59 23:59 23:59 23:59 Intake Total 1170 1700 1020 440 Output Total 2808 838 0423 1250 Balance 120 273 -230 810 Meds/Results Medications: Active Medications Generic Name Dose Route Start Last Admin Trade Name Freq PRN Reason Stop Dose Admin Acetaminophen 650 mg 09/18/24 17:39 09/26/24 05:15 Acetaminophen 325 Mg Tablet PO 650 mg Q4H PRN Administration Mild Pain (1-3) or Fever Hydrocodone Bitart/Acetaminophen 1 tab 09/18/24 17:39 09/26/24 20:25 Hydrocodone/Acetaminophen (*Crx) 5-325 Mg Tablet PO 1 tab Q4H PRN Administration Pain Rated 4-6 Amoxicillin/Clavulanate Potassium 1 tablet 09/21/24 14:00 09/27/24 10:26 Amoxicillin/Clavulanate K 875-125 Mg Tab PO 09/27/24 21:01 1 tablet Q12HR VALENTIN Administration Atorvastatin Calcium 20 mg 09/19/24 09:00 09/27/24 10:26 Atorvastatin 20 Mg Tablet PO 20 mg DAILY VALENTIN Administration Cyclobenzaprine HCl 10 mg 09/26/24 10:41 09/26/24 20:25 Cyclobenzaprine Hcl 10 Mg Tablet PO 10 mg Q12H PRN Administration Muscle Spasm, Neck pain Dextrose 12.5 gm 09/18/24 21:00 Dextrose 50% 25 Gm/50 Ml Syringe IV PUSH PRN PRN Hypoglycemia Protocol Furosemide 40 mg 09/26/24 09:00 09/27/24 10:26 Furosemide 40 Mg Tablet PO 40 mg DAILY VALENTIN Administration Gabapentin 100 mg 09/22/24 13:00 09/27/24 10:26 Gabapentin 100 Mg Capsule PO 100 mg TID VALENTIN Administration Glucagon 1 mg 09/18/24 21:00 Glucagon For Inj 1 Mg Vial IM PRN PRN Hypoglycemia Protocol Glucose 15 gm 09/18/24 21:00 Glucose Oral Gel 15 Gm Of Glucse In 37.5 Gm Tube PO PRN PRN Hypoglycemia Protocol Guaifenesin 600 mg 09/21/24 11:20 09/27/24 10:27 Guaifenesin 12 Hr 600 Mg Tabcr PO 09/28/24 11:19 600 mg Q12HR VALENTIN Administration Dextrose 1,000 mls @ 100 mls/hr 09/18/24 21:00 Dextrose 5% 1,000 Ml IVPB PRN PRN Hypoglycemia Protocol Insulin Aspart 2 - 5 units 09/19/24 08:00 09/27/24 10:31 Insulin Aspart (*Bkc) 100 Units/Ml SUB-Q Not Given TIDWM VALENTIN Protocol Insulin Aspart 1 - 2 units 09/18/24 21:00 09/26/24 23:05 Insulin Aspart (*Bkc) 100 Units/Ml SUB-Q Not Given HS [facility] Protocol Lisinopril 5 mg 09/19/24 09:00 09/27/24 10:26 Lisinopril 5 Mg Tablet PO 5 mg QAM VALENTIN Administration Multi-Ingred Cream/Lotion/Oil/Oint 1 applic 09/19/24 12:05 09/27/24 10:27 Eucerin Cream 120 Gm Jar TOPICAL 1 applic DAILY [facility] Administration Ondansetron HCl 4 mg 09/18/24 17:39 Ondansetron Inj 4 Mg/2 Ml Vial IV PUSH Q4H PRN Nausea Pantoprazole Sodium 40 mg 09/19/24 09:00 09/27/24 10:26 Pantoprazole 40 Mg Tablet PO 40 mg DAILY [facility] Administration Pioglitazone HCl 30 mg 09/19/24 09:00 09/27/24 10:26 Pioglitazone Hcl 30 Mg Tablet PO 30 mg DAILY [facility] Administration Polyethylene Glycol 17 gm 09/26/24 09:00 09/27/24 10:27 Polyethylene Glycol 3350 17 Gm Powd.Pack PO 17 gm QAM [facility] Administration Senna/Docusate Sodium 1 tab 09/25/24 21:00 09/26/24 20:25 Senna/Docusate Sodium Tablet PO 1 tab HS [facility] Administration Warfarin Sodium 3 mg 09/27/24 17:00 Warfarin (*Pbkc) 3 Mg Tablet PO DAILY@1700 [facility] Radiology Results: ITS Impressions Chest X-Ray 09/18/24 15:03 IMPRESSION: Subsegmental right basilar atelectasis/consolidation. Mild diffuse interstitial edema versus chronic interstitial change Venous Doppler Study 09/18/24 16:26 IMPRESSION: Inadequate visualization of multiple lower extremity veins bilaterally as detailed above. DVT visualized in the right posterior tibial vein. No other thrombus detected within the adequately visualized veins. Head CT 09/24/24 20:12 Impression: No acute intracranial hemorrhage or suspicious mass effect. Cervical Spine CT 09/24/24 20:14 Impression: Significant degenerative disease, without acute fracture. Labs Labs: Laboratory Results - last 24 hr 09/26/24 09/26/24 09/27/24 16:48 20:30 05:39 WBC 10.2 H RBC 3.33 L Hgb 10.6 L Hct 33.0 L MCV 99.1 MCH 31.8 MCHC 32.1 RDW 13.9 Plt Count 335 MPV 11.0 H Immature Gran % (Auto) 1.1 H Neut % (Auto) 65.1 Lymph % (Auto) 18.7 [place] % (Auto) 11.4 H Eos % (Auto) 3.1 Baso % (Auto) 0.6 Lymph # (Auto) 1.91 [place] # (Auto) 1.2 H Eos # (Auto) 0.3 Baso # (Auto) 0.1 Abs Immat Gran (auto) 0.11 H Absolute Neuts (auto) 6.7 Absolute Nucleated RBC 0.000 Nucleated RBC % 0.0 PT 33.3 H INR 3.2 Sodium 130 L Potassium 4.4 Chloride 92 L Carbon Dioxide 31 H Anion Gap 7 BUN 52 H Creatinine 1.11 H Estim Creat Clear Calc 45 Estimated GFR 47 L Glucose 162 H POC Capillary Glucose 232 H 236 H Calcium 8.4 Magnesium 2.3 Total Bilirubin 0.6 AST 24 ALT 14 Alkaline Phosphatase 63 Total Protein 6.0 L Albumin 2.8 L 09/27/24 09/27/24 07:58 11:44 WBC RBC Hgb Hct MCV MCH MCHC RDW Plt Count MPV Immature Gran % (Auto) Neut % (Auto) Lymph % (Auto) [place] % (Auto) Eos % (Auto) Baso % (Auto) Lymph # (Auto) [place] # (Auto) Eos # (Auto) Baso # (Auto) Abs Immat Gran (auto) Absolute Neuts (auto) Absolute Nucleated RBC Nucleated RBC % PT INR Sodium Potassium Chloride Carbon Dioxide Anion Gap BUN Creatinine Estim Creat Clear Calc Estimated GFR Glucose POC Capillary Glucose 152 H 181 H Calcium Magnesium Total Bilirubin AST ALT Alkaline Phosphatase Total Protein Albumin Pulse Oximetry SpO2 results: 95-97% on room air Attestation: I personally reviewed and interpreted this pulse oximetry as follows: Interpretation: no need for supplemental oxygenation at this time Quality VTE Prophylaxis VTE prophylaxis: pharmacologic ordered (Change to Eliquis starting tomorrow, INR 3.2 today)
[2024-09-27 14:00] VITALS: BP 115/41; PULSE 80; RESP 18; TEMP 36.6; O2SAT 91
[2024-09-27] MEDS: FUROSEMIDE INJ 40 MG/4 ML VIAL IV PUSH (15:49)
[2024-09-27 16:37] LABS: Glucose Point of Care 183 mg/dl (65-105)
[2024-09-27 17:03] LABS: INR 2.8; Prothrombin Time 30.1 Seconds (11.1-14.7)
[2024-09-27 20:44] VITALS: BP 143/51; PULSE 86; RESP 16; TEMP 36.6; O2SAT 93
[2024-09-27] MEDS: CYCLOBENZAPRINE HCL 10 MG TABLET PO (20:47)
[2024-09-27] MEDS: SENNA/DOCUSATE SODIUM TABLET 1 TAB PO (20:47)
[2024-09-27] MEDS: INSULIN ASPART (*BKC) 100 UNITS/ML SUB-Q (20:54)
[2024-09-27 20:58] LABS: Glucose Point of Care 245 mg/dl (65-105)
[2024-09-28 05:52] VITALS: BP 134/49; PULSE 74; RESP 16; TEMP 37; O2SAT 93
[2024-09-28 06:21] LABS: Basophils Absolute Auto 0.1 K/mm3 (0.0-0.1); Basophils Percent Auto 0.6 % (0.2-1.2); Eosinophils Absolute Auto 0.2 K/mm3 (0-0.3); Eosinophils Percent Auto 2.4 % (0-4.4); Hematocrit 31.4 % (37.0-47.0); Hemoglobin 10.2 g/dL (12.0-15.0); Immature Granulocyte Absolute 0.13 K/mm3 (0.00-0.031); Immature Granulocyte Percent A 1.3 % (0-0.5); Lymphocytes Percent Auto 18.3 % (18.3-44.2); Mean Corpuscular HGB Conc 32.5 g/dl (32-36); Mean Corpuscular Hemoglobin 32.3 pg (26-34); Mean Corpuscular Volume 99.4 fl (80-100); Mean Platelet Volume 10.3 fl (7.4-10.4); Monocytes Absolute Auto 1.3 K/mm3 (0.1-0.6); Monocytes Percent Auto 13.2 % (2.6-8.5); Neutrophils Absolute Auto 6.3 K/mm3 (1.3-6.7); Neutrophils Percent Auto 64.2 % (45.5-73.1); Platelet Count Result 355 k/mm3 (150-375); Red Blood Count 3.16 M/mm3 (4.2-5.4); Red Cell Distribution Width 13.9 % (11.5-14.5); White Blood Count 9.9 K/mm3 (4.5-10.0)
[2024-09-28 06:42] LABS: INR 2.6; Prothrombin Time 27.9 Seconds (11.1-14.7)
[2024-09-28 06:46] LABS: Alanine Aminotransferase 17 U/L (6-35); Albumin Level 2.6 g/dL (3.5-5.1); Alkaline Phosphatase 56 U/L (38-126); Anion Gap 7 mmol/L (4-12); Aspartate Amino Transferase 28 U/L (14-36); Bilirubin,Total 0.7 mg/dL (0.2-1.3); Blood Urea Nitrogen 50 mg/dL (7-17); Calcium 8.3 mg/dL (8.4-10.2); Carbon Dioxide 31 mmol/L (22-30); Chloride 95 mmol/L (98-107); Estimated CRCL calculation 47 ml/min; Estimated Glomerular Filt Rate 50; Glucose 179 mg/dL (65-110); Magnesium 2.2 mg/dL (1.6-2.3); Potassium 4.2 mmol/L (3.4-5.0); Sodium 133 mmol/L (137-145)
[2024-09-28 08:09] LABS: Glucose Point of Care 153 mg/dl (65-105)
[2024-09-28] MEDS: polyethylene glycoL 3350 17 GM POWD.PACK PO (10:02)
[2024-09-28] MEDS: lisinopriL 5 MG TABLET PO (10:02)
[2024-09-28] MEDS: ATORVASTATIN 20 MG TABLET PO (10:02)
[2024-09-28] MEDS: FUROSEMIDE 40 MG TABLET PO (10:02)
[2024-09-28] MEDS: PIOGLITAZONE HCL 30 MG TABLET PO (10:02)
[2024-09-28] MEDS: GABAPENTIN 100 MG CAPSULE PO ×2 (10:02→12:55)
[2024-09-28] MEDS: APIXABAN 5 MG TABLET PO (10:02)
[2024-09-28] MEDS: EUCERIN CREAM 120 GM JAR 1 APPLIC TOPICAL (10:02)
[2024-09-28] MEDS: PANTOPRAZOLE 40 MG TABLET PO (10:02)
[2024-09-28] MEDS: guaiFENesin 12 HR 600 MG TABCR PO (10:07)
--- NOTE | 2024-09-28 11:11 | P.DS_ITS ---
DS: Admitting Diagnosis Discharge Date 09/28/24 Admitting Diagnosis right lower extremity DVT, CHF exacerbation, pulmonary edema DS: Discharge Diagnosis Discharge Diagnosis (1) DVT (deep venous thrombosis): Qualifiers: Affected thrombotic vein of extremity: tibial Chronicity: acute DVT location: lower extremity Laterality: right Qualified Code(s): I82.441 - Acute embolism and thrombosis of right tibial vein Code(s): I82.409 - Acute embolism and thrombosis of unspecified deep veins of unspecified lower extremity Status: Acute (2) Supratherapeutic INR: Code(s): R79.1 - Abnormal coagulation profile Status: Acute (3) Acute on chronic diastolic CHF (congestive heart failure): Code(s): I50.33 - Acute on chronic diastolic (congestive) heart failure Status: Acute (4) Essential (primary) hypertension: Code(s): I10 - Essential (primary) hypertension Status: Chronic (5) Type 2 diabetes mellitus with diabetic polyneuropathy: Code(s): E11.42 - Type 2 diabetes mellitus with diabetic polyneuropathy Status: Acute (6) UTI (urinary tract infection): Code(s): N39.0 - Urinary tract infection, site not specified Status: Acute (7) Impaired mobility and ADLs: Code(s): Z74.09 - Other reduced mobility; Z78.9 - Other specified health status Status: Acute (8) Lower extremity edema: Code(s): R60.0 - Localized edema Status: Acute DS: Summary Hospital Course Hospital Course: 78-year-old female with past medical history of DVTs, grade 1 diastolic dysfunction, rheumatoid arthritis, chronic kidney disease stage III and morbid obesity who presented to the ER from home due to increased weakness and lower extremity swelling. Patient admits that she has never taken her Lasix ever since it is been prescribed over a year ago. She has 2 older providers in the past that she is taking it but has never done so. She states that she cannot deal with urinary frequency because she already has bladder prolapse. After she had received Lasix she was unable to make it to the bathroom and nursing staff was having difficulty monitoring strict I&O's. Patterson catheter was placed in ER and by the time the patient had arrived to the medical floor she had already had 1 L of urine output. She reports chronic orthopnea and has had to sleep in a recliner for a couple of years due to orthopnea. She does snore and has never been tested for obstructive sleep apnea. She denies any chest pain or palpitations. She has noticed increased lower extremity swelling over the last couple of months that is worsened over the last 2 weeks. Her chest x-ray in the ER demonstrated pulmonary edema. She has had a mild nonproductive cough. She did not have a CTA performed in the ER due to history of contrast allergy. She is known to have a history of DVTs and was switched back to Coumadin a due to an issue with cost medications. She states that she has been compliant with her Coumadin. Patient was continued on her Coumadin. Her INR was supratherapeutic but is now been back in range. Treated with Lasix 40 mg IV b.i.d. pulmonary edema and acute CHF exacerbation. She did have UTI. Urine culture tested positive for Klebsiella pneumonia and this has since been treated. Antibiotics have been completed. PT and OT ordered on the patient and she worked with. She was discharged to SNF. Time Spent with Patient Time attestation: Total time spent providing and/or coordinating discharge services: Exam Narrative: GENERAL: Comfortable, no acute distress HENMT: moist mucous membranes EYES: EOM intact b/l RESPIRATORY: clear to auscultation, no increased respiratory effort CARDIO: Regular rate and rhythm SKIN/EXTREMITIES: BLE edema and erythema (baseline), tenderness to palpation DS: Data Data Completed and Pending Labs on day of discharge: Labs from last 24 hours 09/28/24 09/28/24 09/27/24 07:58 06:14 20:47 WBC 9.9 RBC 3.16 L Hgb 10.2 L Hct 31.4 L MCV 99.4 MCH 32.3 MCHC 32.5 RDW 13.9 Plt Count 355 MPV 10.3 Immature Gran % (Auto) 1.3 H Neut % (Auto) 64.2 Lymph % (Auto) 18.3 [place] % (Auto) 13.2 H Eos % (Auto) 2.4 Baso % (Auto) 0.6 Lymph # (Auto) 1.80 [place] # (Auto) 1.3 H Eos # (Auto) 0.2 Baso # (Auto) 0.1 Abs Immat Gran (auto) 0.13 H Absolute Neuts (auto) 6.3 Absolute Nucleated RBC 0.000 Nucleated RBC % 0.0 PT 27.9 H INR 2.6 Sodium 133 L Potassium 4.2 Chloride 95 L Carbon Dioxide 31 H Anion Gap 7 BUN 50 H Creatinine 1.06 H Estim Creat Clear Calc 47 Estimated GFR 50 L Glucose 179 H POC Capillary Glucose 153 H 245 H Calcium 8.3 L Magnesium 2.2 Total Bilirubin 0.7 AST 28 ALT 17 Alkaline Phosphatase 56 Total Protein 6.0 L Albumin 2.6 L 09/27/24 09/27/24 09/27/24 16:45 16:26 11:44 WBC RBC Hgb Hct MCV MCH MCHC RDW Plt Count MPV Immature Gran % (Auto) Neut % (Auto) Lymph % (Auto) [place] % (Auto) Eos % (Auto) Baso % (Auto) Lymph # (Auto) [place] # (Auto) Eos # (Auto) Baso # (Auto) Abs Immat Gran (auto) Absolute Neuts (auto) Absolute Nucleated RBC Nucleated RBC % PT 30.1 H INR 2.8 Sodium Potassium Chloride Carbon Dioxide Anion Gap BUN Creatinine Estim Creat Clear Calc Estimated GFR Glucose POC Capillary Glucose 183 H 181 H Calcium Magnesium Total Bilirubin AST ALT Alkaline Phosphatase Total Protein Albumin Discharge Plan Discharge Attending physician on discharge: Berkley Fu Discharging Clinician: Berkley Fu Patient Disposition: SNF Activity: as tolerated Diet: heart healthy and diabetic Discharge Instructions: Anticoagulation Medication: Please take medication as prescribed Do not stop medication before talking to your doctor Bleeding risk is increased while taking medications like aspirin or NSAIDs like ibuprofen or naproxen If you fall or hurt herself or hurt your head, call your doctor right away. You may bleed more easily. Be careful to avoid injury. Discuss this drug with your doctor before undergoing any type of surgery or procedure Discharge disposition: Take medications as prescribed Monitor blood pressures Avoid social areas, you wear a mask when in social settings Encouraged to continue with yearly vaccinations Return to the emergency department if he developed sudden shortness of breath, chest pain, nausea, vomiting, upset stomach or intractable diarrhea Return to the emergency department if you develop fever greater than 100.4 Follow-up with the primary care physician within 1-2 weeks Thank you for choosing [facility] for your healthcare needs Patient Instructions: Warfarin (By mouth), Deep Vein Thrombosis (DC) Patient Language: Greenlandic Stand Alone Forms: General Discharge Information Discharge Medications: New Eliquis 5 mg Tablet 5 mg PO Q12HR Qty: 60 0RF gabapentin 100 mg Capsule 100 mg PO TID Qty: 90 0RF cyclobenzaprine 10 mg Tablet 10 mg PO Q12H PRN (Reason: Muscle Spasm, Neck pain) Qty: 30 0RF Continued furosemide [Lasix] 20 mg tablet 20 mg PO DAILY Qty: 30 0RF metformin 500 mg tablet 500 mg PO BID pantoprazole 40 mg tablet,delayed release (DR/EC) 40 mg PO DAILY pioglitazone 30 mg tablet 30 mg PO DAILY warfarin 5 mg tablet 5 mg PO DAILY warfarin 1 mg tablet 2 mg PO DAILY atorvastatin 20 mg Tablet 20 mg PO DAILY Qty: 14 0RF lisinopril 5 mg Tablet 5 mg PO QAM Qty: 20 0RF Date of admission: 09/19/24 16:30 Primary Care Provider: Lasha Mahmood Admitting Provider: Adama Ruiz Attending physician on admission: Margarita Louis Condition: Stable Hospitalist MIPS Heart Failure (Exclusion) Patient has history of Heart Transplant or Left Ventricular Assistive Device?: Yes IF YES, STOP HERE Heart Failure (Qualifier) Patient has current or prior documentation of LVEF less than or equal to 40%, or mod/servere depressed LVSF?: No IF NO, STOP HERE If Yes, Heart Failure (Qualifier) Patient was prescribed or already taking an Angiotensin-Converting Enzyme (JOSSE) Inhibitor, or Antiotensin Receptor Gerardo (ARB): Yes Patient was prescribed or already taking bisoprolol, carvedilol, or sustained release metoprolol succinate: No If Medications not prescribed/taking Reason patient not prescribed/taking bisoprolol, carvedilol, or sustained realease metoprolol succinate: Patient reasons: pt declined or other pt reason (cardiology not prescribed)
[2024-09-28 11:50] LABS: Glucose Point of Care 181 mg/dl (65-105)
[2024-09-28 14:00] VITALS: BP 147/58; PULSE 79; RESP 16; TEMP 36.8; O2SAT 100
== END 2024-09-28 15:37 | DRG 299 ==
LOC: ANHED 13:42 → ANH2MED 19:20
PROVIDERS: Internal Medicine; Nurse Practitioner; Nurse Practitioner Family; Student in an Organized Health Care Education/Training Program; Admitting Provider General Practice; Emergency Provider Emergency Medicine; PCP Family Medicine; Visit Provider Internal Medicine Critical Care Medicine
DX: I82.441 Acute embolism and thrombosis of right tibial vein (principal); I50.33 Acute on chronic diastolic (congestive) heart failure; I13.0 Hypertensive heart and chronic kidney disease with heart failure and stage 1 through stage 4 chronic kidney disease, or unspecified chronic kidney disease; N39.0 Urinary tract infection, site not specified; E87.1 Hypo-osmolality and hyponatremia; Z68.42 Body mass index [BMI] 45.0-49.9, adult; E11.22 Type 2 diabetes mellitus with diabetic chronic kidney disease; E11.40 Type 2 diabetes mellitus with diabetic neuropathy, unspecified; E78.5 Hyperlipidemia, unspecified; N18.31 Chronic kidney disease, stage 3a; N81.10 Cystocele, unspecified; B96.1 Klebsiella pneumoniae [K. pneumoniae] as the cause of diseases classified elsewhere; K21.9 Gastro-esophageal reflux disease without esophagitis; E66.01 Morbid (severe) obesity due to excess calories; M06.9 Rheumatoid arthritis, unspecified; M54.2 Cervicalgia; R79.1 Abnormal coagulation profile; W07.XXXA Fall from chair, initial encounter; Z87.891 Personal history of nicotine dependence; Z79.01 Long term (current) use of anticoagulants; Z86.73 Personal history of transient ischemic attack (TIA), and cerebral infarction without residual deficits; Z91.148 Patient's other noncompliance with medication regimen for other reason
CPT/HCPCS: 36415; 36600; 70450; 71045; 72125; 80053; 81001; 82805; 82948; 83735; 83880; 83930; 83935; 84300; 84443; 85018; 85025; 85610; 85730; 87086; 87186; 93306; 93970; 94762; 96365; 96366; 96372; 96375; 97110; 97161; 97166; 97530; 99285; A9270; G0378; J1650; J1815; J1940; J3475; J7040

== ENCOUNTER 2024-10-01 10:05 | Outpatient (CLI) | payer MEDICARE, SELFPAY ==
--- NOTE | ~2024-10-01 | US_ITS ---
EXAMINATION: US arterial ankle brachial ind DATE: 10/01/2024 11:24 INDICATION: Disorder of arteries, arterioles and capillaries with decreased pedal pulses. TECHNIQUE: Segmental pressures and plethysmographic and Doppler waveforms of the brachial and lower e xtremity arteries were obtained. COMPARISON: None. FINDINGS: Right and left brachial artery pressures of 101 mm Hg and 115 mm Hg, respectively, are concordant (no rmal difference <= 30 mmHg). The right ankle-brachial index (MAMTA) is unable to be obtained due to inability to occlude the vessels at the right ankle (normal >= 0.9-1.0). The right great toe-brachial index (TBI) is 1.25 (normal >= 0.65). Arterial Doppler waveforms demonstrate brisk systolic upstrokes at both right posterior tibial and dorsalis pedis arteries. The left MAMTA is 1.74. The left TBI is 1.36. Arterial Doppler waveforms demonstrate brisk systolic ups trokes at both left posterior tibial and dorsalis pedis arteries. IMPRESSION: 1. No significant arterial occlusive disease to bilateral lower limbs with normal bilateral ABIs and left MAMTA. Right MAMTA is unable be obtained due to inability to occlude the vessels at the right ankle. Reviewed, dictated and finalized at location B. RAL RESOURCES MANAGER IMPRESSION: 1. No significant arterial occlusive disease to bilateral lower limbs with norm al bilateral ABIs and left MAMTA. Right MAMTA is unable be obtained due to inabilit y to occlude the vessels at the right ankle.
[2024-10-01 10:52] LABS: Hematocrit 32.1 % (35.0-42.0); Hemoglobin 10.3 g/dL (11.7-13.8); Mean Corpuscular HGB Conc 32.1 g/dL (32-36); Mean Corpuscular Hemoglobin 30.8 pg (27.0-31.0); Mean Corpuscular Volume 96.1 fL (78.0-102.0); Mean Platelet Volume 9.8 fl (9.2-11.8); Platelet Count Result 493 K/mm3 (150-420); Red Blood Count 3.34 M/mm3 (4.20-5.40); Red Cell Distribution Width 13.7 % (11.6-14.4); White Blood Count 15.6 K/mm3 (4.8-10.8)
--- OUTSIDE RECORDS SUMMARY | 2024-10-01 11:02 | XMS_ITS ---
Author Organization [facility] Address [address] [place], [place] [id number] Care Team Providers Care Inspection Manager Name Role Phone MERI MI Unavailable [phone] Lasha Mahmood Unavailable Unavailable Allergies Allergen (clinical drug ingredient) Drug/Non Drug Allergy documented on EMR Reaction Allergy Type Onset Date Status Shellfish (FN) Shellfish-derived Products Unknown Drug Allergy Active REASON FOR VISIT *General care Medications Medication SIG (Take, Route, Frequency, Duration) Notes Start Date End Date Status Cephalexin 500 MG Oral for 3 Days Active Furosemide 20 MG Oral for 30 Days Active Diclofenac Sodium 75 MG Oral for 30 Days Active Omeprazole 40 MG Oral for 30 Days Active Warfarin Sodium 2 MG Oral for 30 Days Active Atorvastatin Calcium 20 MG Oral for 30 Days Active Lisinopril 5 MG Oral for 30 Days Active Methotrexate Sodium 2.5 MG TAKE 5 TABLET S BY MOUTH IN AM AND PM BY ORAL ROUTE ONCE WEEKLY Oral for 28 Days Active Vital Signs Weight 230 lbs 11/14/2023 Weight-kg 104.33 kg 11/14/2023 Height 62 in 11/14/2023 Height-cm 157.48 cm 11/14/2023 BMI 42.06 kg/m2 11/14/2023 Encounters Encounter Location Date Provider Diagnosis [facility] [address] [place], [place] [id number] 11/14/2023 MI JEREZ Other hammer toe(s) (acquired), right foot M20.41 ; Tinea unguium B35.1 ; Other hammer toe(s) (acquired), left foot M20.42 ; Pain in right toe(s) M79.674 ; Pain in left toe(s) M79.675 ; 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 The patient was given education about shoe recommendations specific for the condition. The patient was educated about custom orthotics and how appropriate shoes and orthotics can prevent further worsening of the deformity. The patient was educated about how bad shoe habits can worsen the condition. NSAIDS, P.T., injections and other conservative treatments were discussed. Both surgical and non surgical treatments were discussed, but conservative options were emphasized. 11/14/2023 Tinea unguium (ICD-10 - B35.1) Aseptic debridement of elongated thickened nails x 10 using sterile nippers, nails were debrided in length and thickness by 30% utilizing a nail nipper without incident. The patient was educated regarding all treatment options that include topical and oral antifungal treatments. I discussed the options of taking a sample of the nail to confirm diagnosis. Nail clippings were not sent for pathology analysis. The patient was educated why and how the fungal infection evolved in their feet and the patient was given information regarding how to prevent further infection. The patient was told to keep feet dry and change socks. The patient was told to be careful with old shoes and excessive sweating. The patient was educated regarding both OTC and prescription treatments. 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 Explained to patient the importance of keeping interdigital spaces dry, not walking bare foot, having supportive shoe gear, using moisturizer to skin on feet daily especially in winter months, and checking feet daily for any new lesions or areas suspicious of trauma infection or ulceration. Explained to patient to return to ED if any change in foot health associated with signs of systemic infection including but not limited to nausea, vomiting, fever. Plan Of Treatment Treatment Notes Assessment Notes Other hammer toe(s) (acquired), right fo ot The patient was educated regarding how to mechanically stabilize their deformity. The patient was given education about shoe recommendations specific for the condition. The patient was educated about custom orthotics and how appropriate shoes and orthotics can prevent further worsening of the deformity. The patient was educated about how bad shoe habits can worsen the condition. NSAIDS, P.T., injections and other conservative treatments were discussed. Both surgical and non surgical treatments were discussed, but conservative options were emphasized. Tinea unguium Aseptic debridement of elongated thickened nails x 10 using sterile nippers, nails were debrided in length and thickness by 30% utilizing a nail nipper without incident. The patient was educated regarding all treatment options that include topical and oral antifungal treatments. I discussed the options of taking a sample of the nail to confirm diagnosis. Nail clippings were not sent for pathology analysis. The patient was educated why and how the fungal infection evolved in their feet and the patient was given information regarding how to prevent further infection. The patient was told to keep feet dry and change socks. The patient was told to be careful with old shoes and excessive sweating. The patient was educated regarding both OTC and prescription treatments. 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 Explained to patient the importance of keeping interdigital spaces dry, not walking bare foot, having supportive shoe gear, using moisturizer to skin on feet daily especially in winter months, and checking feet daily for any new lesions or areas suspicious of trauma infection or ulceration. Explained to patient to return to ED if any change in foot health associated with signs of systemic infection including but not limited to nausea, vomiting, fever. Next Appt Details Follow Up: 3 Months, Reason: Progress Notes * MADISON GARNERDOB: [birth year] (78 yo F)Acc No.[id number]:11/14/2023 Patient:?MADISON GARNER Provider:?MI JEREZ :1945???Age:78 Y???Sex:Female D ate:11/14/2023 Address:[address] [place], [place] [id number] Subjective: * Chief Complaints: * ???1. *General care. * HPI: ???HPI:?General care?Patient presents to the office for diabetic foot care. Patient states that their nails are thickened, elongated and painful. Patient states that it is aggravated by shoe gear. Onset is gradual., Patient is taking prescription blood thinners., Date last seen by Dr. Santana was November 2023., Initials EW.? * ROS:?General / Constitutional:?Patient denies?weakness.?Respiratory:?Patient denies?chronic cough, shortness of breath, sputum production.?Cardiovascular:?Patient denies?chest pain, history of WI, irregular heartbeat.?Musculoskeletal:?Patient denies?arthritis, joint stiffness.?Patient complains of?hammertoes.?Peripheral Vascular:?Patient denies?blanching of skin, cold extremities, decreased sensation in extremities.?Skin:?Patient complains of?fungal nails, nail changes.?Neurologic:?Patient denies?dizziness, gait abnormality, headache.? * Medical History:? * Medications:?Taking Atorvast atin Calcium 20 MG Tablet Oral , Taking Lisinopril 5 MG Tablet Oral , Taking Warfarin Sodium 2 MG Tablet Oral , Taking Cephalexin 500 MG Capsule Oral , Taking Furosemide 20 MG Tablet Oral , Taking Diclofenac Sodium 75 MG Tablet Delayed Release Oral , Taking Omeprazole 40 MG Capsule Delayed Release Oral , Taking Methotrexate Sodium 2.5 MG Tablet TAKE 5 TABLETS BY MOUTH IN AM AND PM BY ORAL ROUTE ONCE WEEKLY Oral * Allergies:?Shellfish-derived Products. Objective: * Vitals:?Shoe Size: 10, Wt: 2 30 lbs, Wt-k.33 kg, Ht: 62 in, Ht-cm: 157.48 cm, BMI: 42.06 Index, Body Surface Area: 2.13. * Examination: ???Physical Examination: ???Vascular: Dorsalis Pedis pulse noted at 1/4 right foot and 1/4 left foot and Posterior Tibial pulse noted at 1/4 right foot and 1/4 left foot, Capillary refill times noted to be less than three seconds x ten, Temperature gradient noted to be warm to cool to bilateral foot, pedal hair present to bilateral foot and no varicosities are noted ?Dermatologic: there are no open lesions, no signs of active clinical infection, no erythema noted, no ecchymoses, nails are elongated thickened and dystrophic with subungual debris x ten ?Musculoskeletal: there is pain to palpation onto nail plate x ten, no calf pain noted bilaterally, arch height noted at 2/5 non-weight bearing bilaterally, first metatarsophalangeal joint range of motion 30 deg non-weight bearing bilaterally, flexible fifth digit hammer toe deformity noted to bilateral foot reducible with kelikian push up test ?Neurology: protective sensation intact to light touch bilateral digits one through five, vibratory sensation intact to first metatarsophalangeal joint bilaterally. 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 Plan: * Treatment: 2.?Other hammer toe(s) (acqu ired), right foot? Notes: The patient was educated regarding how to mechanically stabilize their deformity. The patient was given education about shoe recommendations specific for the condition. The patient was educated about custom orthotics and how appropriate shoes and orthotics can prevent further worsening of the deformity. The patient was educated about how bad shoe habits can worsen the condition. NSAIDS, P.T., injections and other conservative treatments were discussed. Both surgical and non surgical treatments were discussed, but conservative options were emphasized. ?? 3.?Unspecified atheroscleros is of pechanga arteries of extremities, bilateral legs? Notes: Patient educated on risks and aggravating factors of PVD, including conservative treatment options such as a diet and exercise regimen to aid in slowing progression of vascular disease ?? 4.?Type 2 diabetes mellitus with diabetic peripheral angiopathy without gangrene? Notes: Patient educated on proper diabetic foot care and the importance of tight glycemic control in regards to the prevention of diabetic manifestations and symptomatology in lower extremity. Explained to patient the importance of keeping interdigital spaces dry, not walking bare foot, having supportive shoe gear, using moisturizer to skin on feet daily especially in winter months, and checking feet daily for any new lesions or areas suspicious of trauma infection or ulceration. Explained to patient to return to ED if any change in foot health associated with signs of systemic infection including but not limited to nausea, vomiting, fever. ?? * Procedure Codes:?55929 DEBRI DE NAIL, 6 OR MORE, Modifiers: Q8 * Follow Up:?3 Months * Billing Information: * Visit Code:? * Procedure Codes:? 43489 DEBRIDE NAIL, 6 OR MORE. Modifiers: Q8 * Sign off status: Completed true * Provider:OLEKSANDR JEREZ Date:?11/14/2023 Generated for Nancy bruno/Ehsan/eTransmitting on:?10/01/2024 11:02 AM TECHNICAL SUPPORT MANAGER History and Physical Notes * HPI (History of Present Illness) Category Sub-Category Detail Notes Category Not es HPI General care Patient presents to the office for diabetic foot care. Patient states that their nails are thickened, elongated and painful. Patient states that it is aggravated by shoe gear. Onset is gradual., Patient is taking prescription blood thinners., Date last seen by Dr. Santana was November 2023., Initials EW Examination Category Sub-Category Detail Notes Category Not es Physical Examination Vascular: Dorsalis Pedis pulse noted at 1/4 right foot and 1/4 left foot and Posterior Tibial pulse noted at 1/4 right foot and 1/4 left foot, Capillary refill times noted to be less than three seconds x ten, Temperature gradient noted to be warm to cool to bilateral foot, pedal hair present to bilateral foot and no varicosities are noted Dermatologic: there are no open lesions, no signs of active clinical infection, no erythema noted, no ecchymoses, nails are elongated thickened and dystrophic with subungual debris x ten Musculoskeletal: there is pain to palpation onto nail plate x ten, no calf pain noted bilaterally, arch height noted at 2/5 non-weight bearing bilaterally, first metatarsophalangeal joint range of motion 30 deg non-weight bearing bilaterally, flexible fifth digit hammer toe deformity noted to bilateral foot reducible with kelikian push up test Neurology: protective sensation intact to light touch bilateral digits one through five, vibratory sensation intact to first metatarsophalangeal joint bilaterally
--- OUTSIDE RECORDS SUMMARY | 2024-10-01 11:02 | XMS_ITS | Clinical Summary ---
Author Organization [facility] Address [address] [place] [address] [place] [address] Care Team Providers Care Technology Assistant Name Role Phone Beth Peterson CUSTOMS COMPLIANCE DIRECTOR Unavailable Allergies No known active allergies Medications docusate sodium 100 MG capsule Take 1 capsule (100 mg total) by mouth 2 (two) times daily as needed for Constipation. 60 capsule 1 Active acetaminophen 325 MG tablet Take 2 tablets (650 mg total) by mouth every 4 (four) hours as needed for Pain or Fever. 30 tablet 1 Active ondansetron 4 MG disintegrating tablet Take 1 tablet (4 mg total) by mouth every 8 (eight) hours as needed for Nausea. 30 tablet 1 Active Skin Protectants, Misc. (CALAZIME SKIN PROTECTANT EX) Apply to coccyx every shift and PRN Active Wound Dressings (MEDIHONEY WOUND/BURN DRESSING EX) Cleanse area to sacrum with wound cleanser apply medihoney and calcium alginate and dry dressing daily and PRN Active Menthol, Topical Analgesic, (ABSORBINE PAIN RELIEVING EX) 10% gel apply topically to RLE and left knee TID Active ibuprofen 600 MG tablet Take 600 mg by mouth every 8 (eight) hours as needed for Pain. Active Trolamine Liquid Apply topically TID as needed to affected area Active guaiFENesin 100 MG/5ML solution Take 200 mg by mouth every 4 (four) hours as needed for Cough. Active magnesium hydroxide 400 MG/5ML suspension Take 30 mLs by mouth daily as needed for Constipation. Active HYDROcodone-acetami nophen 5-325 MG tabletIndications:C hronic Pain Take 1 tablet by mouth every 6 (six) hours as needed for Pain. Indications: Chronic Pain 28 tablet 2 Active insulin lispro, 1 Unit Dial, 100 UNIT/ML injection (PEN)Indications:Di abetes mellitus due to underlying condition with hyperosmolarity without nonketotic hyperglycemic-hyper osmolar coma ([facility]) ([facility]) Per sliding scale 0-149 = 0 units 150 - 200 = 2 units 201 - 250 = 4 units 251 - 300 = 6 units 301 - 350 = 8 units 351 - 400 = 10 units 401 = 12 units and notify provider Inject into the skin 3 (three) times daily. Per sliding scale 0-149 = 0 units 150 - 200 = 2 units 201 - 250 = 4 units 251 - 300 = 6 units 301 - 350 = 8 units 351 - 400 = 10 units 401 = 12 units and notify provider 3 mL 5 2 Active lidocaine 4 % patchIndications:Ot her specified arthritis, unspecified site Place 2 patches onto the skin daily. Remove & Discard patch within 12 hours or as directed by MD 30 patch 2 Active metFORMIN 500 MG tabletIndications:D iabetes mellitus due to underlying condition with hyperosmolarity without nonketotic hyperglycemic-hyper osmolar coma ([facility]) ([facility]) Take 1 tablet (500 mg total) by mouth 2 (two) times daily with meals. 60 tablet 2 Active pantoprazole EC 40 MG tabletIndications:G astroesophageal reflux disease without esophagitis Take 1 tablet (40 mg total) by mouth 2 (two) times a day. 60 tablet 2 Active polyethylene glycol packetIndications:O ther constipation Take 1 packet (17 g total) by mouth daily. Dissolve powder in 240 mL water 30 each 2 Active simethicone 80 MG chewable tabletIndications:G astroesophageal reflux disease without esophagitis Chew 1 tablet (80 mg total) by mouth daily. 30 tablet 2 Active Active Problems Problem Noted Date Diagnosed Date COVID 09/12/2021 Diabetes mellitus due to und erlying condition with hyperosmolarity without nonketotic hyperglycemic-hyperosmolar coma ([facility]) ([facility]) 08/17/2021 Personal history of noncompl iance with medical treatment, presenting hazards to health 08/17/2021 Repeated falls 08/17/2021 Acute kidney failure, unspecified 08/17/2021 Other specified arthritis, unspecified site 08/02 Morbid obesity (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 UTI (urinary tract infection) 07/16/2021 Immunizations Name Administration Dates Next Due Influenza Adult (Generic) 08/15/2021,03/2017,05/29/2016,2014 Yesmywine ([employer]) COVID-19 AD26 VACCINE 0.5 ML IM SUSP 08/14/2021 Pneumococcal (Prevnar 13) 05/21/2015 Social History Tobacco Use Types Packs/Day Years Used Date Smoking Tobacco: Former Cigarettes Q uit: 1981 Smokeless Tobacco: Never Alcohol Use Standard Drinks/Week Comments Not Currently 0 (1 standard drink = 0.6 oz pur e alcohol) Comments Unknown Sex and Gender Information Value Date Recorded Sex Assigned at Not on file Legal Sex Female 2:51 PM PRODUCTION REPAIRER Gender Identity Not on file Sexual Orientation Not on file Last Filed Vital Signs Vital Sign Reading Time Taken Comments Blood Pressure 122/45 09/13/2021 8:55 AM PRODUCTION REPAIRER Pulse 76 09/13/2021 8:55 AM PRODUCTION REPAIRER Temperature 36.7 ??C (98 ??F) 09/13/2021 8:55 AM PRODUCTION REPAIRER Respiratory Rate 20 09/13/2021 8:55 AM PRODUCTION REPAIRER Oxygen Saturation 97% 09/13/2021 8:55 AM PRODUCTION REPAIRER Inhaled Oxygen Concentration - - Weight 103 kg (227 lb) 09/13/2021 8:55 AM PRODUCTION REPAIRER Height 157.5 cm (5' 2 ) 07/15/2021 3:08 PM PRODUCTION REPAIRER Body Mass Index 41.52 07/15/2021 3:08 PM PRODUCTION REPAIRER Plan of Treatment Health Maintenance Due Date Last Done Comments Kidney Health Evaluation 1945 Lipid Panel 1945 Diabetes: Retinopathy Eye Exam 1961 DTaP, Tdap and Td Vaccines (1 - Tdap) 1962 Zoster Vaccines (1 of 2) 1993 Dexa Scan (General) 2008 Pneumococcal Vaccine: 65+ Years (2 of 2 - PPSV23 or PCV20) 07/16/2015 05/21/2015 RSV Immunization or 60+ Years (1 - 1-dose 75+ series) 2018 Hemoglobin A1C 02/27/2022 08/29/2021, 08/03, 07/16/2021 COVID-19 Vaccine (2 - season) 2024 08/14/2021 Influenza Adult (#1) 2024 08/15/2021, 05/09/2017, 05/29/2016, Additional history exists Meningococcal B Vaccine Aged Out No l onger eligible based on patient's age to complete this topic Meningococcal Vaccine Aged Out No aayush felicity eligible based on patient's age to complete this topic RSV Immunizations Under 20 Months Aged Out No longer eligible based on patient's age to complete this topic Goals Goal Patient Goal Type Associated Problems Recent Progress Patient-Stated? Author Safety - demonstrates understanding of home safety measures General No Theresa Belle automation and control engineer Procedure Name Priority Date/Time Associated Diagnosis Comments HEMOGLOBIN, GLYCOSYLATED Routine 08/29/2021 8:20 AM PRODUCTION REPAIRER from Last 3 Months or Most Recently Relevant to Health Maintenance Results * (ABNORMAL) HEMOGLOBIN, GLYCOSYLATED (08/29/2021 8:20 AM PRODUCTION REPAIRER) HGB A1C 8.3(H) 4.2 - 6.3 % [facility] Comment: Note: ??Hemoglobinopathies such as HbF, HbS, etc. may give incorrect results with this test. ESTIMATED AVG GLUCOSE 190 mg/dL [facility] Comment: (This value is a calculated estimate of the mean blood glucose over the last 60 days based on the patient's HgbA1c value. 08/29/2021 8:20 AM PRODUCTION REPAIRER 08/29/2021 8:20 AM PRODUCTION REPAIRER Ryan Contreras DO LABORATORY Final Result [facility] [address] [place] [address] from Last 3 Months or Most Recently Relevant to Health Maintenance Advance Directives Documents on File Type Date Recorded Patient Manufacturing Finance Manager Expl anation DNR (Do Not Resuscitate) Documentation 08/22/2021 9:38 AM POLST * DNR (Latest Code Status on File) Date Activated Date Inactivated Comments 08/23/2021 9:40 AM * Full Code Date Activated Date Inactivated Comments 08/17/2021 2:39 PM 08/23/2021 9:40 AM * Full Code Date Activated Date Inactivated Comments 07/16/2021 12:10 AM 07/19/2021 10:01 PM Care Teams Technology Assistant Relationship Specialty Start Date End Date Beth Peterson NP Nurse Practitioner [facility] 08/14/21
--- OUTSIDE RECORDS SUMMARY | 2024-10-01 11:02 | XMS_ITS | Patient Health Record ---
Author Organization [facility] Address [address] [place], [place] [address] Care Team Providers Care Mower Sharpener Name Role Phone MERI MI Unavailable [phone] Lasha Mahmood Unavailable Unavailable Allergies Allergen (clinical drug ingredient) Drug/Non Drug Allergy documented on EMR Reaction Allergy Type Onset Date Status Shellfish (FN) Shellfish-derived Products Unknown Drug Allergy Active Reason For Referral No Information Medications Medication SIG (Take, Route, Frequency, Duration) Notes Start Date End Date Status Atorvastatin Calcium 20 MG Oral for 30 Days Active Lisinopril 5 MG Oral for 30 Days Active Methotrexate Sodium 2.5 MG TAKE 5 TABLET S BY MOUTH IN AM AND PM BY ORAL ROUTE ONCE WEEKLY Oral for 28 Days Active Cephalexin 500 MG Oral for 3 Days Active Furosemide 20 MG Oral for 30 Days Active Diclofenac Sodium 75 MG Oral for 30 Days Active Omeprazole 40 MG Oral for 30 Days Active Warfarin Sodium 2 MG Oral for 30 Days Active Vital Signs Height-cm 157.48 cm 11/14/2023 Weight-kg 104.33 kg 11/14/2023 Height 62 in 11/14/2023 Weight 230 lbs 11/14/2023 BMI 42.06 kg/m2 11/14/2023 Encounters Encounter Location Date Provider Diagnosis [place] [address] [place], [place] [id number] 11/14/2023 MI JEREZ Other hammer toe(s) (acquired), right foot M20.41 ; Tinea unguium B35.1 ; Other hammer toe(s) (acquired), left foot M20.42 ; Pain in right toe(s) M79.674 ; Pain in left toe(s) M79.675 ; Unspecified atherosclerosis of [place] arteries of extremities, bilateral legs I70.203 and Type 2 diabetes mellitus with diabetic peripheral angiopathy without gangrene E11.51 Assessments Encounter Date Diagnosis (ICD Code) Assessment Notes Treatment Notes Treatment Clinical Notes Section Notes 11/14/2023 Tinea unguium (ICD-10 - B35.1) Aseptic [...] prescription treatments. 11/14/2023 Other hammer toe(s) (acquired), right foot [...] discussed, but conservative options were emphasized. 11/14/2023 Other hammer toe(s) (acquired), left foot (ICD-10 - M20.42) 11/14/2023 Pain in right toe(s) (ICD-10 - M79.674) 11/14/2023 Pain in left toe(s) (ICD-10 - M79.675) 11/14/2023 Unspecified atherosclerosis of [place] arteries of extremities, bilateral legs (ICD-10 - [...] to nausea, vomiting, fever. Plan Of Treatment No Information Insurance Providers Payer Name Payer Address Payer Phone Subscriber Number Group Number Insured Name Patient Relationship to Insured Coverage Start Date Coverage End Date Medicare Part B [place] [address] [place] [address] [id number] MADISON GARNER Self - patient is the insured [facility] ATTN CLAIMS [address] [place] [address] [id number] MADISON GARNER Self - patient is the insured Medical (General) History Medical History History ICD Code kidney stones neuropathy Arthritis Bladder infections Diabetic Blood clots
--- OUTSIDE RECORDS SUMMARY | 2024-10-01 11:02 | XMS_ITS ---
Author Organization [facility] Address [address] [place], [place] [id number] Care Team Providers Care Planner Name Role Phone MI JEREZ Unavailable [phone] Lasha Mahmood Unavailable Unavailable REASON FOR VISIT *General care Encounters Encounter Location Date Provider Diagnosis [place] [address] [place], [place] [id number] 08/08/2023 MI JEREZ Plan Of Treatment No Information Progress Notes * TJ GARNERVIKADOB: 4 (79 yo F)Acc No.[id number]:08/08/2023 Patient:?MADISON GARNER Provider:OLEKSANDR JEREZ :1945???Age:77 Y???Sex:Female D ate:08/08/2023 Address:[address] [place] [facility] Subjective: * Chief Complaints: * ???1. *General care. * Medical History:? Objective: * Vitals:? Assessment: Plan: * Treatment: * Billing Information: * Visit Code:? * Procedure Codes:? * Electronic signature of FLOYD JEREZ DPM on 10/01/2024 at 11:01 AM ACCOUNTANT HELPER Sign off status: Pending * Provider:OLEKSANDR JEREZ Date:?08/08/2023 Generated for Nancy bruno/Ehsan/eTransmitting on:?10/01/2024 11:01 AM ACCOUNTANT HELPER
--- OUTSIDE RECORDS SUMMARY | 2024-10-01 11:02 | XMS_ITS ---
Author Organization [facility] Address [address] [place], [place] [id number] Care Team Providers Care Outside Medical Sales Representative Name Role Phone MERI MI Unavailable [phone] Lasha Mahmood Unavailable Unavailable REASON FOR VISIT *General care Encounters Encounter Location Date Provider Diagnosis [address] [id number] 01/16/2024 MI JEREZ Plan Of Treatment No Information Progress Notes * MADISON GARNERDOB: 4 (79 yo F)Acc No.[id number]:01/16/2024 Patient:?MADISON GARNER Provider:OLEKSANDR JEREZ :1945???Age:78 Y???Sex:Female D ate:01/16/2024 Address:[address] [place], [place] [id number] Subjective: * Chief Complaints: * ???1. *General care. * Medical History:? Objective: * Vitals:? Assessment: Plan: * Treatment: * Billing Information: * Visit Code:? * Procedure Codes:? * Electronic signature of FLOYD JEREZ DPM on 10/01/2024 at 11:02 AM COST ESTIMATING ENGINEER Sign off status: Pending * Provider:OLEKSANDR JEREZ Date:?01/16/2024 Generated for Nancy bruno/Ehsan/eTransmitting on:?10/01/2024 11:02 AM COST ESTIMATING ENGINEER
[2024-10-01 11:51] LABS: Alanine Aminotransferase 39 U/L (14-59); Albumin Level 1.8 g/dL (3.4-5.0); Alkaline Phosphatase 70 U/L (46-116); Anion Gap 6 mmol/L (4-12); Aspartate Amino Transferase 43 U/L (15-37); Bilirubin,Total 0.6 mg/dL (0.00-1.00); Blood Urea Nitrogen 30 mg/dL (7-18); Calcium 8.7 mg/dL (8.5-10.1); Carbon Dioxide 29 mmol/L (21-32); Chloride 96 mmol/L (98-108); Estimated Glomerular Filt Rate 49; Glucose 191 mg/dL (70-99); Osmolality Calculated 283 mOsm/kg (285-295); Potassium 4.7 mmol/L (3.5-5.1); Sodium 131 mmol/L (136-145); Total Protein 5.3 g/dL (6.4-8.2)
[2024-10-01 12:05] LABS: Hemoglobin A1C 6.6 % (<5.7)
[2024-10-01 12:22] LABS: INR 2.5; Prothrombin Time 25.5 Seconds (9.50-12.1)
== END 2024-10-01 10:06 | disposition home or self-care (01) ==
LOC: CHSIMG 10:10
PROVIDERS: PCP Family Medicine; Visit Provider Family Medicine
DX: I77.9 Disorder of arteries and arterioles, unspecified (principal); I79.8 Other disorders of arteries, arterioles and capillaries in diseases classified elsewhere; J81.0 Acute pulmonary edema; E11.42 Type 2 diabetes mellitus with diabetic polyneuropathy; N18.31 Chronic kidney disease, stage 3a; I50.33 Acute on chronic diastolic (congestive) heart failure
CPT/HCPCS: 36415; 80053; 83036; 85027; 85610; 93922

== ENCOUNTER 2024-10-21 08:23 | Inpatient (IN) | payer MEDICARE, SELFPAY ==
[2024-10-21] VITALS (22 sets, daily range): BP systolic 90–143; BP diastolic 39–95; PULSE 83–128; RESP 14–22; TEMP 36.6–37.7; O2SAT 91–100; BMI 39.9
--- NOTE | ~2024-10-21 | CT_ITS ---
CT head without contrast Indication: Syncope COMPARISON: 09/24/2024 Technique: Serial scans were obtained through the brain without the administration of contrast. Dose reduction technique was used on this scan by utilizing automated exposure control and iterative recon struction technique. The dose-length product (DLP) was 605.33 mGy-cm. Findings: There is no evidence of intracranial hemorrhage, mass lesion, or acute infarct. The ventri cles and subarachnoid spaces are dilated, consistent with mild atrophy. Low attenuation regions are seen within the periventricular white matter bilaterally, likely representing changes from chronic mi crovascular ischemic disease. There is no evidence of edema, mass effect or midline shift. The visu alized paranasal sinuses and mastoid air cells are clear. Impression: No intracranial hemorrhage, mass, or acute infarct. Atrophy and chronic white matter changes, as above. Reviewed, dictated and finalized at [facility]. CTOR OF INTELLIGENCE Impression: No intracranial hemorrhage, mass, or acute infarct. Atrophy and chronic white matter changes, as above.
--- NOTE | ~2024-10-21 | XR_ITS ---
EXAMINATION: [id number] DATE: 10/25/2024 13:48 INDICATION: Right knee pain. TECHNIQUE: 2 views of right knee were obtained. COMPARISON: None. FINDINGS: There is varus angulation at the knee. No fracture. There is severe osteoarthritis of media l and patellofemoral compartments and moderate osteoarthritis of lateral compartment. There is a smal l knee joint effusion. IMPRESSION: 1. Severe right knee osteoarthritis. 2. Small right knee joint effusion. Reviewed, dictated and finalized at location A. OAT OPERATOR
--- NOTE | ~2024-10-21 | XR_ITS ---
EXAMINATION: XR chest 1V portable 10/21/2024 10:05 INDICATION: Shortness of breath PROCEDURE: AP portable chest COMPARISON: 09/18/2024 FINDINGS: The lungs are clear. The cardiomediastinal silhouette is within normal limits. There are no pleural effusions. There is no pneumothorax suspected. IMPRESSION: 1: NO ACUTE CARDIOPULMONARY DISEASE. Reviewed, dictated and finalized at location B. SHEAR OPERATOR
--- NOTE | ~2024-10-21 | XR_ITS ---
EXAMINATION: [id number]_[id number] DATE: 10/25/2024 13:47 INDICATION: Left knee pain. TECHNIQUE: 2 views of left knee were obtained. COMPARISON: None. FINDINGS: There is varus angulation at the knee. No fracture. There is severe osteoarthritis of media l compartment and moderate osteoarthritis of lateral and patellofemoral compartments. There is a smal l knee joint effusion. IMPRESSION: 1. Severe left knee osteoarthritis. 2. Small left knee joint effusion. Reviewed, dictated and finalized at location A. ROUTEMAN
--- NOTE | ~2024-10-21 | CT_ITS ---
EXAMINATION: CT facial bones w con DATE: 10/23/2024 08:31 INDICATION: Right upper tooth pain. TECHNIQUE: Computed tomography (CT) of the facial bones and maxillofacial region was performed with 7 5 mL Omnipaque 350 intravenous contrast. 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 The dose-length product was 504.97 mGy-cm. COMPARISON: None. FINDINGS: There is mild mucosal thickening in the paranasal sinuses. Tooth 2 is broken with periapica l lucencies. There is a jew of tooth 3 with changes of root canal procedure. There is a recur rent carious lesion of tooth 3. Teeth 4 and 5 are broken. Tooth 14 is broken with periapical lucencie s. There is asymmetric fat stranding around the right parotid gland, consistent with parotiditis. No sialolith. There is severe cervical spondylosis. IMPRESSION: 1. Right-sided parotiditis. 2. Dental disease. Reviewed, dictated and finalized at location A. NSIVE CARE UNIT NURSE
--- OUTSIDE RECORDS SUMMARY | 2024-10-21 08:32 | XMS_ITS ---
Author Organization [facility] Address [address] [place], [place] [id number] Care Team Providers Care Auto Mechanics Instructor Name Role Phone MI JEREZ Unavailable [phone] Lasha Mahmood Unavailable Unavailable REASON FOR VISIT *General care Encounters Encounter Location Date Provider Diagnosis [address] [id number] 01/16/2024 MI JEREZ Plan Of Treatment No Information Progress Notes * MADISON GARNERDOB: 4 (79 yo F)Acc No.[id number]:01/16/2024 Patient: Deshaun ESTRADAMADISON Provider: Silvia JEREZ :1945 A ge:78 Y S ex:Female Date:01/16/2024 Address:[address] [place], [place] [phone] Subjective: * Chief Complaints: * 1 . *General care. * Medical History: Objective: * Vitals: Assessment: Plan: * Treatment: * Billing Information: * Visit Code: * Procedure Codes: * Electronic signature of FLOYD JEREZ DPM on 10/21/2024 at 08:32 AM LATIN DANCER Sign off status: Pending * Provider: Silvia JEREZ Date: 0 01/16/2024 Generated for Vanessai ng/Fapriceg/eTransmitting on: 10/21/2024 08:32 AM LATIN DANCER
--- OUTSIDE RECORDS SUMMARY | 2024-10-21 08:32 | XMS_ITS ---
Author Organization [facility] Address [address] [place], [place] [phone] Care Team Providers Care Business Systems Consultant Name Role Phone MI JEREZ Unavailable [phone] Lasha Mahmood Unavailable Unavailable REASON FOR VISIT *General care Encounters Encounter Location Date Provider Diagnosis [place] [address] [place], [place] [phone] 08/08/2023 MI JEREZ Plan Of Treatment No Information Progress Notes * MADISON GARNERDOB: 4 (79 yo F)Acc No.[id number]:08/08/2023 Patient: MADISON BENEDICT Provider: Silvia JEREZ :1945 A ge:77 Y S ex:Female Date:08/08/2023 Address:[address] [place] [facility] Subjective: * Chief Complaints: * 1 . *General care. * Medical History: Objective: * Vitals: Assessment: Plan: * Treatment: * Billing Information: * Visit Code: * Procedure Codes: * Electronic signature of FLOYD JEREZ DPM on 10/21/2024 at 08:31 AM CUSTOM CAR BUILDER Sign off status: Pending * Provider: Silvia JEREZ Date: 1 10/09/2022 Generated for Vanessai ng/Fapriceg/eTransmitting on: 10/21/2024 08:31 AM CUSTOM CAR BUILDER
--- OUTSIDE RECORDS SUMMARY | 2024-10-21 08:32 | XMS_ITS ---
Author Organization [facility] Address [address] [place], [place] [id number] Care Team Providers Care Chiller Hand Name Role Phone MERI MI Unavailable [phone] Lasha Mahmood Unavailable Unavailable Allergies Allergen (clinical [...] Oral for 28 Days Active Vital Signs Height 62 in 11/14/2023 Weight 230 lbs 11/14/2023 BMI 42.06 kg/m2 11/14/2023 Height-cm 157.48 cm 11/14/2023 Weight-kg 104.33 kg 11/14/2023 Encounters Encounter Location Date Provider Diagnosis [place] [address] [place], [place] [phone] 11/14/2023 MI JEREZ Other hammer toe(s) (acquired), right foot M20.41 ; Tinea unguium B35.1 ; Other hammer toe(s) (acquired), left foot M20.42 ; Pain in right toe(s) M79.674 ; Pain in left toe(s) M79.675 ; Unspecified atherosclerosis of [place] arteries of extremities, bilateral legs I70.203 and [...] (ICD-10 - M79.675) 11/14/2023 Unspecified atherosclerosis of [place]ash[place] arteries of extremities, bilateral legs (ICD-10 - [...] OTC and prescription treatments. Unspecified atherosclerosis of [place]ash[place] arteries of extremities, bilateral legs Patient educated [...] Up: 3 Months, Reason: Progress Notes * TJ GARNERVIKADOB: 4 (78 yo F)Acc No.[id number]:11/14/2023 Patient: MADISON BENEDICT Provider: Silvia JEREZ :1945 A ge:78 Y S ex:Female Date:11/14/2023 Address:[address] [place], [place] [id number] Subjective: * Chief Complaints: * 1 . *General care. * HPI: H PI: General care P atlamine presents to the office for diabetic foot care. Patient states that their nails are thickened, elongated and painful. Patient states that it is aggravated by shoe gear. Onset is gradual., Patient is taking prescription blood thinners., Date last seen by Dr. Santana was November 2023., Initials EW. * ROS: G eneral / Constitutional: Patient denies w eakness. R espiratory: Patient denies c hronic cough, shortness of breath, sputum production. C ardiovascular: Patient denies c hest pain, history of LA, irregular heartbeat. M usculoskeletal: Patient denies a rthritis, joint stiffness. P atient complains of h ammertoes. P eripheral Vascular: Patient denies b lanching of skin, cold extremities, decreased sensation in extremities. S kin: Patient complains of f ungal nails, nail changes. ? N eurologic: Patient denies d izziness, gait abnormality, headache. * Medical History: * Medications: T aking Atorvastatin Calcium 20 MG Tablet Oral , Taking [...] BY ORAL ROUTE ONCE WEEKLY Oral * Allergies: S hellfish-derived Products. Objective: * Vitals: S hoe Size: 10, Wt: 230 lbs, Wt-k.33 kg, Ht: 62 in, Ht-cm: 157.48 cm, BMI: 42.06 Index, Body Surface Area: 2.13. * Examination: P hysical Examination: V ascular: Dorsalis Pedis pulse noted at 1/4 right [...] first metatarsophalangeal joint bilaterally. Assessment: * Assessment: 1. T inea unguium - B35.1 (Primary) 2 . O ther hammer toe(s) (acquired), right foot - M20.41 3 . O ther hammer toe(s) (acquired), left foot - M20.42 4 . P ain in right toe(s) - M79.674 5 . P ain in left toe(s) - M79.675 6 . U nspecified atherosclerosis of kashia arteries of extremities, bilateral legs - I70.203 7 . T ype 2 diabetes mellitus with diabetic peripheral angiopathy without gangrene - E11.51 Plan: * Treatment: 2. O ther hammer toe(s) (acquired), right foot Notes: The patient was educated regarding how [...] were discussed, but conservative options were emphasized. 3. U nspecified atherosclerosis of kashia arteries of extremities, bilateral legs Notes: Patient educated on risks and aggravating factors of PVD, including conservative treatment options such as a diet and exercise regimen to aid in slowing progression of vascular disease ? 4. T ype 2 diabetes mellitus with diabetic peripheral angiopathy without gangrene Notes: Patient educated on proper diabetic foot [...] but not limited to nausea, vomiting, fever. * Procedure Codes: 1 1721 DEBRIDE NAIL, 6 OR MORE, Modifiers: Q8 * Follow Up: 3 Months * Billing Information: * Visit Code: * Procedure Codes: 36990 DEBRIDE NAIL, 6 OR MORE. Modifiers: Q8 * Sign off status: Completed true * Provider: Silvia JEREZ Date: 0 11/14/2023 Generated for Nancy bruno/Ehsan/Regine on: 0 10/21/2024 08:32 AM SHEET LAYER History and Physical Notes * HPI (History [...]
--- OUTSIDE RECORDS SUMMARY | 2024-10-21 08:32 | XMS_ITS | Patient Health Record ---
Author Organization [facility] Address [address] [place], [place] [address] Care Team Providers Care Iuss Acoustic Analyst Name Role Phone MERI MI Unavailable [phone] Lasha Mahmood Unavailable Unavailable Allergies Allergen (clinical [...] 11/14/2023 Encounters Encounter Location Date Provider Diagnosis [place] [address] [place], [place] [id number] 11/14/2023 MI JEREZ Other hammer toe(s) (acquired), right foot M20.41 ; Tinea unguium B35.1 ; Other hammer toe(s) (acquired), left foot M20.42 ; Pain in right toe(s) M79.674 ; Pain in left toe(s) M79.675 ; Unspecified atherosclerosis of [place] arteries of extremities, bilateral legs I70.203 and [...] (ICD-10 - M79.675) 11/14/2023 Unspecified atherosclerosis of [place] arteries of extremities, bilateral legs (ICD-10 - [...] Date Coverage End Date Medicare Part B [place] [address] [place] [address] [id number] MADISON GARNER Self - patient is the insured [facility] ([facility]) ATTN CLAIMS [address] [place] [address] [id number] MADISON GARNER Self - patient is the insured Medical (General) History Medical History History ICD Code kidney stones neuropathy Arthritis Bladder infections Diabetic Blood clots
--- OUTSIDE RECORDS SUMMARY | 2024-10-21 08:32 | XMS_ITS | Clinical Summary ---
Author Organization [facility] Address [address] [place] [address] Care Team Providers Care Account Financial Manager Name Role Phone Beth Peterson CARTON LETTERING MACHINE OPERATOR Unavailable Allergies No known active allergies Medications [...] hyperosmolarity without nonketotic hyperglycemic-hyper osmolar coma (NKHHC) ([facility]) Per sliding scale 0-149 = 0 units [...] hyperosmolarity without nonketotic hyperglycemic-hyper osmolar coma (NKHHC) ([facility]) Take 1 tablet (500 mg total) by [...] with hyperosmolarity without nonketotic hyperglycemic-hyperosmolar coma (NKHHC) ([facility]) 08/17/2021 Personal history of noncompl iance with medical treatment, presenting hazards to health 08/17/2021 Repeated falls 08/17/2021 Acute kidney failure, unspecified 08/17/2021 Other specified arthritis, unspecified site 08/02 Morbid obesity ([facility]) 08/17/2021 Pain in joint, lower leg 08/17/2021 [...] Dates Next Due Influenza Adult (Generic) 08/15/2021,03/2017,05/29/2016,2014 [employer] ([employer]) COVID-19 AD26 VACCINE 0.5 ML IM SUSP [...] on file Legal Sex Female 2:51 PM [employer]PERVIS[employer] Gender Identity Not on file Sexual Orientation Not on file Last Filed Vital Signs Vital Sign Reading Time Taken Comments Blood Pressure 122/45 09/13/2021 8:55 AM SUPERVISOR [employer] Pulse 76 09/13/2021 8:55 AM SUPERVISOR [employer] Temperature 36.7 C (98 F) 09/13/2021 8:55 AM SUPERVISOR [employer] Respiratory Rate 20 09/13/2021 8:55 AM SUPERVISOR [employer]ARM Oxygen Saturation 97% 09/13/2021 8:55 AM SUPER[employer] Inhaled Oxygen Concentration - - Weight 103 kg (227 lb) 09/13/2021 8:55 AM SUPER[employer] Height 157.5 cm (5' 2 ) 07/15/2021 3:08 PM SUPER[employer] Body Mass Index 41.52 07/15/2021 3:08 PM SUPER[employer] Plan of Treatment Health Maintenance Due Date [...] home safety measures General No Theresa Belle spring fitter helper Procedure Name Priority Date/Time Associated Diagnosis Comments HEMOGLOBIN, GLYCOSYLATED Routine 08/29/2021 8:20 AM SUPERVISOR [employer] from Last 3 Months or Most Recently Relevant to Health Maintenance Results * (ABNORMAL) HEMOGLOBIN, GLYCOSYLATED (08/29/2021 8:20 AM SUPER[employer]) HGB A1C 8.3(H) 4.2 - 6.3 % [facility] Comment: Note: Hemoglobinopathies such as HbF, HbS, etc. may give incorrect results with this test. ESTIMATED AVG GLUCOSE 190 mg/dL [facility] Comment: (This value is a calculated estimate of the mean blood glucose over the last 60 days based on the patient's HgbA1c value. 08/29/2021 8:20 AM SUPERVISOR [employer]ARM 08/29/2021 8:20 AM SUPERVISOR [employer] us Ryan Contreras DO LABORATORY Final Result Performing Organization Address City/State/[facility] Co de Phone Number [address] [address] from Last 3 Months or Most Recently Relevant to Health Maintenance Advance Directives Documents on File Type Date Recorded Patient Director Of Recruiting Expl anation DNR (Do Not Resuscitate) Documentation 08/22/2021 9:38 AM POLST * DNR (Latest Code Status on File) Date Activated Date Inactivated Comments 08/23/2021 9:40 AM * Full Code Date Activated Date Inactivated Comments 08/17/2021 2:39 PM 08/23/2021 9:40 AM * Full Code Date Activated Date Inactivated Comments 07/16/2021 12:10 AM 07/19/2021 10:01 PM Care Teams Account Financial Manager Relationship Specialty Start Date End Date Beth Peterson NP Nurse Practitioner Nursing Home Facility 08/14/21
--- NOTE | 2024-10-21 08:33 | ED_ITS ---
HPI - Syncope General Chief Complaint: Shortness of Breath/Dyspnea Stated Complaint: shortness of breath Time Seen by Provider: 10/21/24 08:27 Source: patient Mode of arrival: ambulatory Limitations: no limitations History of Present Illness HPI narrative: 79-year-old female with a history of hypertension, diabetes mellitus, rheumatoid arthritis, CKD, DVT on Coumadin, diastolic CHF, was recently admitted from 09/19/2024 to 09/27/2024 for CHF exacerbation/ DVT and subsequently in rehab, [place] [facility] with -- weakness/pre syncopal spell on raising her from sitting to standing position. -- In addition she was noted to be diaphoretic. Patient was noted to have a blood sugar of 120. -- noted to have shortness of breath and was hypoxic for which she was placed on supplemental oxygen. On presentation to the ED the patient is saturating 95% on room air. -- Patient feels dizzy and lightheaded -- right lower jaw swelling/ dental caries with bleeding MD complaint: felt faint Onset (ago): hour(s) ( 1 hour ago) Prodromal symptoms: none Witnessed: Yes - by Bystander Context: standing up Injuries sustained associated with event: none Current symptoms: lightheaded Treatments prior to arrival: none Related Data Home Medications ?Medication ?Instructions ?Recorded ?Confirmed ?Last Taken ?Type metformin 500 mg tablet 500 mg PO BID 09/18/24 09/18/24 Unknown History pantoprazole 40 mg tablet,delayed 40 mg PO DAILY 09/18/24 09/18/24 Unknown History release pioglitazone 30 mg tablet 30 mg PO DAILY 09/18/24 09/18/24 Unknown History warfarin 1 mg tablet 2 mg PO DAILY 09/18/24 09/18/24 Unknown History warfarin 5 mg tablet 5 mg PO DAILY 09/18/24 09/18/24 Unknown History Allergies Allergy/AdvReac Type Severity Reaction Status Date / Time Iodinated Contrast Media Allergy Intermediate Rash Verified 10/21/24 08:38 Review of Systems 2 Review of Systems: All systems reviewed & are unremarkable except as noted in HPI and below Constitutional: Constitutional: Reports as per HPI and Reports no additional constitutional complaints Eyes: Eyes: Reports as per HPI Comments: blurred vision ENT: Reports system reviewed and no additional complaints, except as documented Comments: oral bleeding with right lower jaw dental infection Cardiovascular: Cardiovascular: Reports as per HPI and Reports no additional cardiovascular complaints Respiratory: Respiratory: Reports as per HPI and Reports no additional respiratory complaints Gastrointestinal: Gastrointestinal: Reports as per HPI and Reports no additional gastrointestinal complaints Genitourinary: Genitourinary: Reports no additional female genitourinary complaints and Reports as per HPI Musculoskeletal: Musculoskeletal: Reports no additional musculoskeletal complaints and Reports as per HPI Integumentary/Breasts: Skin/Breast: Reports system reviewed and no additional complaints, except as docu and Reports as per HPI Neurologic: Reports system reviewed and no additional complaints, except as documented, Reports as per HPI and Reports dizziness Psychiatric: Psychiatric: Reports no additional psychiatric complaints and Reports as per HPI Endocrine: Endocrine: Reports no additional endocrine complaints and Reports as per HPI Hematologic/Lymphatic: Hematologic/Lymphatic: Reports no additional hematologic/lymphatic complaints and Reports as per HPI Allergic/Immunologic: Allergic/Immunologic: Reports no additional allergic/immunologic complaints and Reports as per HPI PMF Past Medical History Medical History Diabetic polyneuropathy Type 2 diabetes mellitus Morbid obesity with BMI of 45.0-49.9, adult Chronic kidney disease, stage 3a Diastolic heart failure GERD without esophagitis H/O TIA (transient ischemic attack) and stroke H/O deep venous thrombosis Hyperlipidemia Essential (primary) hypertension Surgical History Surgical History History of hysterectomy S/P cholecystectomy Family History Family History Mother Family history of migraine headaches Family history of arthritis Family history of Alzheimer's disease Father Family history of cataracts Family history of diabetes mellitus in first degree relative Family history of congestive heart failure Family history of heart disease in male family member before age 55 Family history of hearing loss Sibling Family history of diabetes mellitus in first degree relative Other Diabetes mellitus Social History Social History Social History: She is (for over 50 years) and lives by herself in a small home on her son's property. She has 2 sons 1 of which is living in a [place] [facility] due to blindness an intellectual disability associated with extreme prematurity. She has a daughter who is chronically ill and has had a prior cardiac arrest but is still living. Then her youngest son planned is relatively healthy and only the property she lives on. She used to smoke about a quarter pack of cigarettes per day for about 20 years but quit when she was in her 40s. She used to drink an alcoholic beverage every couple of weeks but has not done so in many years. She denies history of illicit substance use. Code status: DNR/DNI (per patient request) Surrogate decision maker: Dmitry (son) Smoking status: Former smoker Tobacco type: cigarettes Second hand tobacco smoke exposure: No Smoking end date: 09/02/82 Additional smoking assessment comments: patient smoked in her 30's Alcohol intake: never Substance use: never Substance use type: does not use Do You Feel Safe in your Home?: Yes Lack of Transportation: No Lack of Food: Never True Current Housing: I Have Housing Concerned About Future Housing: No Difficulty Paying Gas/Electric Bills: No Difficulty Paying for Meds: No Currently Unemployed: No Education: High School Diploma/GED Difficulty w/ Childcare or Family Care: No Living arrangements: alone Occupation/Education: retired Additional occupation/education comments: [employer] Gender identity (if verbalized by the patient): Female Sexual Orientation (if Verbalized by the Patient): Straight or Heterosexual Spiritual care concerns: No Agree to blood products: Yes Exam 2 Narrative: blood pressure 98/62 with heart rate of 104. Patient is afebrile. Oxygen saturation 99% on room air. patient is not orthostatic from lying to sitting position. Const: General: no acute distress Nutritional Appearance: obese O rientation/consciousness: patient oriented x3 Limitations: no limitations HENMT: Head: normal to inspection Ears: external ears normal F arik/Nose/Sinus: Normal external nose present Face and sinus: normal facial exam Mouth: Yes Abnormal oral and palatal mucosa present ( Oral bleeding from right lower teeth with dental caries.) Teeth and gingiva: abnormal tooth and associated gingiva Eyes: Conjunctivae: conjunctivae normal Pupils: Equal, round and reactive pupils present EOM: EOMs intact bilaterally Direct Ophthalmoscopy: no photophobia Neck: Neck: normal visual inspection, no lymphadenopathy and no meningeal signs Chest: Chest palpation & inspection: normal inspection of the chest Resp: Effort & Inspection: normal respiratory effort Auscultation: clear to auscultation bilaterally Cardio: Rate: regular rate Rhythm: regular rhythm GI: GI Palp: Yes Soft to palpation Auscultation: normal bowel sounds O ther: No tenderness/ rigidity / rebound. : General: Yes no CVA tenderness Back/Spine/Pelvis: Back: no CVA tenderness Skin: General skin exam: normal color Rashes: no rashes Neuro: General: patient oriented x3, moves all extremities, no meningeal signs, no focal motor deficits and CN's II-XI intact bilaterally Cranial nerves: Yes Nystagmus not present Speech: normal speech Other: Patient is bedbound for the last many months Extrem: General: edema Psych: Mental Status: mental status grossly normal Affect: normal affect Attitude: cooperative Course Course Emergency Course: DNR orthostatic dizziness A flutter / fibrillation-- the rhythm has regular RR interval suggestive of sinus tachycardia.Heart rate decreased to the 80s after 15 mg of IV Cardizem. canceled IV digoxin as a heart rate in the 80s. heart rate continues to be around 100. Supratherapeutic INR of 19 with dental bleeding. Give IV vitamin K acute on chronic renal failure-- her BUN creatinine increased from 30/1.08 to 56/1.84 urinary tract infection Vital Signs Vital signs: Vital Signs Oxygen Delivery Room Air 10/21/24 08:30 Temperature 37.1 C 10/21/24 10:09 Pulse Rate 83 10/21/24 11:01 Respiratory Rate 20 10/21/24 11:01 Blood Pressure 98/69 L 10/21/24 11:01 Pulse Oximetry 99 10/21/24 11:01 Oxygen Delivery Room Air 10/21/24 11:01 MDM - Syncope MDM Narrative Medical decision making narrative: supratherapeutic INR dental bleeding acute on chronic renal failure urinary tract infection Atrial fibrillation/ flutter with a heart rate of around 100. This appears to be sinus tachycardia compensated CHF Differential Diagnosis Differential diagnosis: Likely vasovagal syncope and dehydration Medical Records Attestation: I reviewed the patient's medical records. Lab Data Attestation: I reviewed the patient's lab results. 10/21/24 09:36 10/21/24 09:36 Labs: Lab Results 10/21/24 10/21/24 10/21/24 Range/Units 09:03 09:09 09:36 WBC 10.6 (4.8-10.8) K/mm3 RBC 3.65 L (4.20-5.40) M/mm3 Hgb 11.3 L (11.7-13.8) g/dL Hct 38.5 (35.0-42.0) % MCV 105.5 H (78.0-102.0) fL MCH 31.0 (27.0-31.0) pg MCHC 29.4 L (32-36) g/dL RDW 14.6 H (11.6-14.4) % Plt Count 232 (150-420) K/mm3 MPV 11.9 H (9.2-11.8) fl Immature Gran % (Auto) 0.4 H (0.0-0.0) % Neut % (Auto) 79.9 H (50.0-70.0) % Lymph % (Auto) 9.6 L (18.0-42.0) % [place] % (Auto) 8.3 (2.0-11.0) % Eos % (Auto) 0.9 L (1.0-6.0) % Baso % (Auto) 0.9 (0.0-1.0) % Lymph # (Auto) 1.02 L (1.10-4.50) K/mm3 [place] # (Auto) 0.88 (0.10-0.90) K/mm3 Eos # (Auto) 0.10 (0.02-0.50) K/mm3 Baso # (Auto) 0.10 (0.00-0.10) K/mm3 Abs Immat Gran (auto) 0.04 H (0.00-0.00) K/mm3 Absolute Neuts (auto) 8.43 H (1.70-7.20) K/mm3 Absolute Nucleated RBC 0.00 (0.00-0.00) K/mm3 Nucleated RBC % 0.0 (0-0.0) % PT (9.64-11.0) Seconds INR APTT (23.9-30.70) Sec Sodium 131 L (136-145) mmol/L Potassium 5.1 (3.5-5.1) mmol/L Chloride 100 (98-108) mmol/L Carbon Dioxide 20 L (21-32) mmol/L Anion Gap 11 (4-12) mmol/L BUN 56 H (7-18) mg/dL Creatinine 1.84 H (0.55-1.02) mg/dL Estim Creat Clear Calc 29 ml/min Estimated GFR 26 L (59 - ) Glucose 152 H (70-99) mg/dL Calculated Osmolality 290 (285-295) mOsm/kg Lactic Acid (0.4-2.0) mmol/L Calcium 8.9 (8.5-10.1) mg/dL Total Bilirubin 0.7 (0.00-1.00) mg/dL AST 10 L (15-37) U/L ALT 15 (14-59) U/L Alkaline Phosphatase 84 (46-116) U/L Troponin I 17.1 (0.00-60.4) ng/L NT-Pro-B Natriuret Pep 7008 H (0-450) pg/mL Total Protein 6.6 (6.4-8.2) g/dL Albumin 2.3 L (3.4-5.0) g/dL Lipase 16 (16-77) U/L TSH 1.15 (0.36-3.74) uIU/mL Urine Color Yellow (Yellow) Urine Appearance Clear (Clear) Urine pH 5.5 (5.0-8.0) Ur Specific [place] 1.015 (1.010-1.020) Urine Protein 1+ H (Negative) Urine Glucose (UA) Negative (Negative) Urine Ketones Negative (Negative) Ur Blood (Man) 1+ H (Negative) Urine Nitrate Negative (Negative) Urine Bilirubin Negative (Negative) Urine Urobilinogen 0.2 (0.2-1.0) mg/dL Leukocyte Esterase Rfl 2+ H (Negative) NERI/UL Urine RBC None seen (0-2) /hpf Urine WBC >75 H (0-3) /hpf Ur Squamous Epith Cells Rare (Few) /hpf Ur Renal Epithelial Cell Rare H (None) /hpf Urine Bacteria 2+ H (None) /hpf Influenza A (RT-PCR) Negative (Negative) Influenza B (RT-PCR) Negative (Negative) RSV (RT-PCR) Negative (Negative) SARS-CoV-2 RNA (RT-PCR) Negative (Negative) 10/21/24 Range/Units 09:48 WBC (4.8-10.8) K/mm3 RBC (4.20-5.40) M/mm3 Hgb (11.7-13.8) g/dL Hct (35.0-42.0) % MCV (78.0-102.0) fL MCH (27.0-31.0) pg MCHC (32-36) g/dL RDW (11.6-14.4) % Plt Count (150-420) K/mm3 MPV (9.2-11.8) fl Immature Gran % (Auto) (0.0-0.0) % Neut % (Auto) (50.0-70.0) % Lymph % (Auto) (18.0-42.0) % [place] % (Auto) (2.0-11.0) % Eos % (Auto) (1.0-6.0) % Baso % (Auto) (0.0-1.0) % Lymph # (Auto) (1.10-4.50) K/mm3 [place] # (Auto) (0.10-0.90) K/mm3 Eos # (Auto) (0.02-0.50) K/mm3 Baso # (Auto) (0.00-0.10) K/mm3 Abs Immat Gran (auto) (0.00-0.00) K/mm3 Absolute Neuts (auto) (1.70-7.20) K/mm3 Absolute Nucleated RBC (0.00-0.00) K/mm3 Nucleated RBC % (0-0.0) % PT > 90.0 H (9.64-11.0) Seconds INR > 19.0 H* APTT 95.6 H (23.9-30.70) Sec Sodium (136-145) mmol/L Potassium (3.5-5.1) mmol/L Chloride (98-108) mmol/L Carbon Dioxide (21-32) mmol/L Anion Gap (4-12) mmol/L BUN (7-18) mg/dL Creatinine (0.55-1.02) mg/dL Estim Creat Clear Calc ml/min Estimated GFR (59 - ) Glucose (70-99) mg/dL Calculated Osmolality (285-295) mOsm/kg Lactic Acid 1.1 (0.4-2.0) mmol/L Calcium (8.5-10.1) mg/dL Total Bilirubin (0.00-1.00) mg/dL AST (15-37) U/L ALT (14-59) U/L Alkaline Phosphatase (46-116) U/L Troponin I (0.00-60.4) ng/L NT-Pro-B Natriuret Pep (0-450) pg/mL Total Protein (6.4-8.2) g/dL Albumin (3.4-5.0) g/dL Lipase (16-77) U/L TSH (0.36-3.74) uIU/mL Urine Color (Yellow) Urine Appearance (Clear) Urine pH (5.0-8.0) Ur Specific [place] (1.010-1.020) Urine Protein (Negative) Urine Glucose (UA) (Negative) Urine Ketones (Negative) Ur Blood (Man) (Negative) Urine Nitrate (Negative) Urine Bilirubin (Negative) Urine Urobilinogen (0.2-1.0) mg/dL Leukocyte Esterase Rfl (Negative) NERI/UL Urine RBC (0-2) /hpf Urine WBC (0-3) /hpf Ur Squamous Epith Cells (Few) /hpf Ur Renal Epithelial Cell (None) /hpf Urine Bacteria (None) /hpf Influenza A (RT-PCR) (Negative) Influenza B (RT-PCR) (Negative) RSV (RT-PCR) (Negative) SARS-CoV-2 RNA (RT-PCR) (Negative) ECG Data EKG #1: ECG completion date: 10/21/24 ECG completion time: 09:17 Interpretation: atrial flutter/tachycardia with a heart rate of 123. Left axis deviation. Right bundle-branch block. No ST elevation. Discharge Plan Discharge Clinical Impression: Supratherapeutic INR Acute on chronic renal failure Qualifiers: Acute renal failure type: unspecified Chronic kidney disease stage: stage 4 (GFR 15-29) Qualified Code(s): N17.9 - Acute kidney failure, unspecified Urinary tract infection Qualifiers: Urinary tract infection type: site unspecified Hematuria presence: without hematuria Qualified Code(s): N39.0 - Urinary tract infection, site not specified Patient Disposition: Acute Care [facility] Condition: Stable Instructions: Antibiotic Form Patient Language: Algerian Prescriptions: No Action furosemide [Lasix] 20 mg tablet 20 mg PO DAILY Qty: 30 0RF metformin 500 mg tablet 500 mg PO BID pantoprazole 40 mg tablet,delayed release (DR/EC) 40 mg PO DAILY pioglitazone 30 mg tablet 30 mg PO DAILY warfarin 5 mg tablet 5 mg PO DAILY warfarin 1 mg tablet 2 mg PO DAILY cyclobenzaprine 10 mg Tablet 10 mg PO Q12H PRN (Reason: Muscle Spasm, Neck pain) Qty: 30 0RF gabapentin 100 mg Capsule 100 mg PO TID Qty: 90 0RF Eliquis 5 mg Tablet 5 mg PO Q12HR Qty: 60 0RF atorvastatin 20 mg Tablet 20 mg PO DAILY Qty: 14 0RF lisinopril 5 mg Tablet 5 mg PO QAM Qty: 20 0RF Follow-up/Referrals: Lasha Mahmood MD [Primary Care Provider] - Time of Disposition: 14:01
--- OUTSIDE RECORDS SUMMARY | 2024-10-21 08:56 | XMS_ITS | Clinical Summary ---
Author Organization [facility] Address [address] [place] [address] Care Team Providers Care College Archivist Name Role Phone Beth Peterson MERCERIZING RANGE FEEDER Unavailable Allergies No known active allergies Medications [...] hyperosmolarity without nonketotic hyperglycemic-hyper osmolar coma (NKHHC) ([facility]) Per sliding scale 0-149 = 0 units [...] hyperosmolarity without nonketotic hyperglycemic-hyper osmolar coma (NKHHC) ([facility]) Take 1 tablet (500 mg total) by [...] with hyperosmolarity without nonketotic hyperglycemic-hyperosmolar coma (NKHHC) ([facility]) 08/17/2021 Personal history of noncompl iance with medical treatment, presenting hazards to health 08/17/2021 Repeated falls 08/17/2021 Acute kidney failure, unspecified 08/17/2021 Other specified arthritis, unspecified site 08/02 Morbid obesity ([facility]) 08/17/2021 Pain in joint, lower leg 08/17/2021 [...] Dates Next Due Influenza Adult (Generic) 08/15/2021,03/2017,05/29/2016,2014 [place] ([facility]) COVID-19 AD26 VACCINE 0.5 ML IM SUSP [...] on file Legal Sex Female 2:51 PM 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 Gender Identity Not on file Sexual Orientation Not on file Last Filed Vital Signs Vital Sign Reading Time Taken Comments Blood Pressure 122/45 09/13/2021 8:55 AM CELL 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 Pulse 76 09/13/2021 8:55 AM CELL 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 Temperature 36.7 C (98 F) 09/13/2021 8:55 AM CELL 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 Respiratory Rate 20 09/13/2021 8:55 AM CELL 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 Oxygen Saturation 97% 09/13/2021 8:55 AM CELL 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 Inhaled Oxygen Concentration - - Weight 103 kg (227 lb) 09/13/2021 8:55 AM CELL 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 Height 157.5 cm (5' 2 ) 07/15/2021 3:08 PM CELL 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 Body Mass Index 41.52 07/15/2021 3:08 PM CELL 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 Plan of Treatment Health Maintenance Due Date [...] home safety measures General No Theresa Belle boiling tub operator Procedure Name Priority Date/Time Associated Diagnosis Comments HEMOGLOBIN, GLYCOSYLATED Routine 08/29/2021 8:20 AM CELL 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 from Last 3 Months or Most Recently Relevant to Health Maintenance Results * (ABNORMAL) HEMOGLOBIN, GLYCOSYLATED (08/29/2021 8:20 AM CELL 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) HGB A1C 8.3(H) 4.2 - 6.3 % [facility] Comment: Note: Hemoglobinopathies such as HbF, HbS, etc. may give incorrect results with this test. ESTIMATED AVG GLUCOSE 190 mg/dL [facility] Comment: (This value is a calculated estimate of the mean blood glucose over the last 60 days based on the patient's HgbA1c value. 08/29/2021 8:20 AM CELL 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 08/29/2021 8:20 AM CELL 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 us Ryan Contreras DO LABORATORY Final Result Performing Organization Address City/State/[facility] Co de Phone Number [address] [phone] from Last 3 Months or Most Recently Relevant to Health Maintenance Advance Directives Documents on File Type Date Recorded Patient Magnet Placer Expl anation DNR (Do Not Resuscitate) Documentation 08/22/2021 9:38 AM POLST * DNR (Latest Code Status on File) Date Activated Date Inactivated Comments 08/23/2021 9:40 AM * Full Code Date Activated Date Inactivated Comments 08/17/2021 2:39 PM 08/23/2021 9:40 AM * Full Code Date Activated Date Inactivated Comments 07/16/2021 12:10 AM 07/19/2021 10:01 PM Care Teams College Archivist Relationship Specialty Start Date End Date Beth Peterson NP Nurse Practitioner [facility] Facility 08/14/21
--- NOTE | 2024-10-21 09:03 | ECG_ITS ---
Test Date: 2024-10-21 09:17:30 Measurements Intervals [place] Rate: 123 P: 0 VT: 0 QRS: -82 QRSD: 147 T: 60 QT: 312 QTc: 448 Interpretive Statements ATRIAL FLUTTER/TACHYCARDIA WITH RAPID VENTRICULAR RESPONSE RIGHT BUNDLE BRANCH BLOCK LEFT ANTERIOR FASCICULAR BLOCK BASELINE ARTIFACT- I, II, III, AVR, AVL, V2-V3 ABNORMAL ECG No previous ECG available for comparison Electronically Signed On 10-21-2024 09:15:26 OUTPATIENT CLERK by Jason Isbell D.O.
[2024-10-21 09:39] LABS: Basophils Percent Auto 0.9 % (0.0-1.0); Eosinophils Percent Auto 0.9 % (1.0-6.0); Hematocrit 38.5 % (35.0-42.0); Hemoglobin 11.3 g/dL (11.7-13.8); Immature Granulocyte Absolute 0.04 K/mm3 (0.00-0.00); Immature Granulocyte Percent A 0.4 % (0.0-0.0); Lymphocytes Absolute Auto 1.02 K/mm3 (1.10-4.50); Lymphocytes Percent Auto 9.6 % (18.0-42.0); Mean Corpuscular HGB Conc 29.4 g/dL (32-36); Mean Corpuscular Volume 105.5 fL (78.0-102.0); Mean Platelet Volume 11.9 fl (9.2-11.8); Monocytes Absolute Auto 0.88 K/mm3 (0.10-0.90); Monocytes Percent Auto 8.3 % (2.0-11.0); Neutrophils Absolute Auto 8.43 K/mm3 (1.70-7.20); Neutrophils Percent Auto 79.9 % (50.0-70.0); Platelet Count Result 232 K/mm3 (150-420); Red Blood Count 3.65 M/mm3 (4.20-5.40); Red Cell Distribution Width 14.6 % (11.6-14.4); White Blood Count 10.6 K/mm3 (4.8-10.8)
[2024-10-21 09:56] LABS: SARS-CoV-2 RNA PCR Negative (Negative)
[2024-10-21 10:02] LABS: Influenza A QL RT-PCR Negative (Negative); Influenza B QL RT-PCR Negative (Negative); RSV RNA, RT-PCR Negative (Negative)
[2024-10-21 10:03] LABS: Alanine Aminotransferase 15 U/L (14-59); Alkaline Phosphatase 84 U/L (46-116); Anion Gap 11 mmol/L (4-12); Aspartate Amino Transferase 10 U/L (15-37); Bilirubin,Total 0.7 mg/dL (0.00-1.00); Carbon Dioxide 20 mmol/L (21-32); Chloride 100 mmol/L (98-108); Glucose 152 mg/dL (70-99); NT Pro B Type Natriuretic Pept 7008 pg/mL (0-450); Potassium 5.1 mmol/L (3.5-5.1); Sodium 131 mmol/L (136-145); Thyroid Stimulating Hormone 1.15 uIU/mL (0.36-3.74); Total Protein 6.6 g/dL (6.4-8.2); Troponin I 17.1 ng/L (0.00-60.4)
[2024-10-21 10:15] LABS: Lactic Acid Reflex 1.1 mmol/L (0.4-2.0)
[2024-10-21 10:20] LABS: Albumin Level 2.3 g/dL (3.4-5.0); Blood Urea Nitrogen 56 mg/dL (7-18); Calcium 8.9 mg/dL (8.5-10.1); Estimated CRCL calculation 29 ml/min; Estimated Glomerular Filt Rate 26; Lipase 16 U/L (16-77); Osmolality Calculated 290 mOsm/kg (285-295)
[2024-10-21 10:29] LABS: INR > 19.0; Prothrombin Time > 90.0 Seconds (9.64-11.0)
[2024-10-21 10:30] LABS: Partial Thromboplastin Time 95.6 Sec (23.9-30.70)
[2024-10-21 10:33] LABS: Add Urine Microscopic? YES; Appearance Urine Clear (Clear); Bilirubin Urine Negative (Negative); Blood Urine 1+ (Negative); Color Urine Yellow (Yellow); Glucose Urine UA Negative (Negative); Ketones Urine Negative (Negative); Leukocyte Esterase Ur 2+ LEU/UL (Negative); Nitrate Urine Negative (Negative); Protein Urine 1+ (Negative); Specific Grav Ur 1.015 (1.010-1.020); Urobilinogen Urine 0.2 mg/dL (0.2-1.0); pH Urine 5.5 (5.0-8.0)
[2024-10-21 10:38] LABS: RBC Urine None seen /hpf (0-2)
[2024-10-21 10:39] LABS: Bacteria Urine 2+ /hpf; Renal Epithelial Cells Urine Rare /hpf; Squamous Epithelial Cell Urine Rare /hpf (Few); WBC Urine >75 /hpf (0-3)
--- NOTE | 2024-10-21 10:41 | PC.NURSE ---
patient was straight cath.
[2024-10-21] MEDS: SODIUM CHLORIDE 0.9% IVPB ×2 (10:47→23:07)
[2024-10-21] MEDS: PHYTONADIONE ADULT IVPB ×2 (10:47→23:07)
[2024-10-21] MEDS: dilTIAZem HCl INJ 25 MG/5 ML VIAL 15 MG IV PUSH (10:53)
--- NOTE | 2024-10-21 11:02 | PC.NURSE ---
PT HAS BEEN STRAIGHT CATHED TO OBTAIN URINE SPECIMEN AND TO DRAIN BLADDER, SHE HAD 800ML OUTPUT OF FOUL SMELLING, CLOUDY URINE, SHE TOLERATED WELL. BHAVNA CARE WAS PROVIDED. IV SITE ESTABLISHED, IV MEDICATIONS ARE INFUSING ORDERED WITHOUT DIFFICULTY. PT IS CONFUSED, SHE KNOWS WHERE SHE IS, HOWEVER REPORTS I KEEP WAKING UP AND AM CONFUSED. PT DOES NOT KNOW WHY SHE IS IN THE ER. ERP HAS CANCELLED DIGOXIN ORDER. WARM BLANKETS PROVIDED. PT IS USING CELL PHONE TO CONTACT FAMILY AT THIS TIME. DENIES ANY OTHER NEEDS OR COMPLAINTS. NO RESP DISTRESS NOTED. PT HAS PULLED OUT A GRAPE SIZE BLOOD CLOT FROM HER MOUTH AND HANDED IT TO RN. ADVISED TO STOP REMOVING THEM , IT IS ATTEMPTING TO GET THE BLEEDING UNDER CONTROL. WILL CONTINUE TO MONITOR.
--- NOTE | 2024-10-21 11:18 | ECG_ITS ---
Test Date: 2024-10-21 11:42:28 Measurements Intervals [place] Rate: 106 P: 0 ME: 0 QRS: -67 QRSD: 142 T: 64 QT: 347 QTc: 462 Interpretive Statements ATRIAL FLUTTER/TACHYCARDIA WITH RAPID VENTRICULAR RESPONSE RIGHT BUNDLE BRANCH BLOCK LEFT ANTERIOR FASCICULAR BLOCK BASELINE ARTIFACT- I, II, III, AVR, AVL, AVF, V2 ABNORMAL ECG Compared to ECG 10/21/2024 09:17:30 HEART RATE HAS DECREASED Electronically Signed On 10-21-2024 13:35:28 TURFGRASS MANAGEMENT PROFESSOR by Jason Isbell D.O.
--- NOTE | 2024-10-21 12:20 | PC.NURSE ---
PT IS RESTING ON STRETCHER IN EXAM ROOM AT THIS TIME, NAD NOTED. DENIES ANY COMPLAINTS. WARM BLANKETS PROVIDED WITH LIGHTS OFF AT REQUEST. WILL CONTINUE TO MONITOR. PT IS AWAITING RETURN CALL FROM HOSPITALIST AT THIS TIME.
--- NOTE | 2024-10-21 13:59 | PC.NURSE ---
pt is sleeping on stretcher in exam room at this time, she is awaiting room assignment for admission to [facility]. pt denies any needs or complaints. belongings list completed [facility] will continue to monitor.
--- NOTE | 2024-10-21 14:14 | PC.NURSE ---
spoke with son and updated on pt status. pt is to be admitted to room 204 at [facility].
--- NOTE | 2024-10-21 14:17 | PC.NURSE ---
1340- ATTEMPTED TO CALL FLOOR FOR ROOM ASSIGNMENT, TO AWAIT RETURN CALL FROM [facility] 1410- PT HAS BEEN ASSIGNED ROOM 204 FOR ADMISSION
[2024-10-21 16:56] LABS: Glucose Point of Care 163 mg/dl (65-105)
[2024-10-21 19:21] LABS: INR 1.7; Prothrombin Time 17.9 Seconds (9.50-12.1)
[2024-10-21] MEDS: ATORVASTATIN 10 MG TABLET 20 MG PO (22:19)
[2024-10-21] MEDS: GABAPENTIN 300 MG CAPSULE PO (22:19)
[2024-10-21] MEDS: ACETAMINOPHEN 325 MG TABLET 650 MG PO (22:23)
--- NOTE | 2024-10-21 22:47 | PC.NURSE ---
Puneet Delgado NP, notified of new INR result. New order received.
--- NOTE | 2024-10-21 22:55 | PC.NURSE ---
Puneet Delgado, EDITOR DEPARTMENT notified of patient's arrival and that medications are in.
[2024-10-22] VITALS: BP 102/41; PULSE 96; RESP 20; TEMP 36.6; O2SAT 97
--- NOTE | 2024-10-22 01:35 | PC.NURSE ---
Puneet Delgado NP notified of pt not voiding; Orders to put in a perez catheter. #16 perez inserted with an immediate return of clear, charissa urine. Pt tolerated procedure well.
[2024-10-22] MEDS: GABAPENTIN 300 MG CAPSULE PO ×3 (05:04→21:40)
[2024-10-22 06:17] LABS: Alanine Aminotransferase 10 U/L (14-59); Albumin Level 1.8 g/dL (3.4-5.0); Alkaline Phosphatase 71 U/L (46-116); Anion Gap 9 mmol/L (4-12); Aspartate Amino Transferase < 10 U/L (15-37); Bilirubin,Total 0.7 mg/dL (0.00-1.00); Blood Urea Nitrogen 51 mg/dL (7-18); Calcium 8.4 mg/dL (8.5-10.1); Carbon Dioxide 23 mmol/L (21-32); Chloride 104 mmol/L (98-108); Estimated CRCL calculation 36 ml/min; Estimated Glomerular Filt Rate 33; Glucose 126 mg/dL (70-99); Osmolality Calculated 297 mOsm/kg (285-295); Potassium 4.9 mmol/L (3.5-5.1); Sodium 136 mmol/L (136-145); Total Protein 5.4 g/dL (6.4-8.2)
[2024-10-22 06:45] LABS: Basophils Absolute Auto 0.05 K/mm3 (0.00-0.10); Basophils Percent Auto 0.4 % (0.0-1.0); Eosinophils Absolute Auto 0.12 K/mm3 (0.02-0.50); Hematocrit 26.7 % (35.0-42.0); Hemoglobin 8.8 g/dL (11.7-13.8); Immature Granulocyte Absolute 0.09 K/mm3 (0.00-0.00); Immature Granulocyte Percent A 0.8 % (0.0-0.0); Lymphocytes Absolute Auto 1.59 K/mm3 (1.10-4.50); Lymphocytes Percent Auto 13.6 % (18.0-42.0); Mean Corpuscular Volume 97.1 fL (78.0-102.0); Mean Platelet Volume 11.3 fl (9.2-11.8); Monocytes Absolute Auto 0.82 K/mm3 (0.10-0.90); Neutrophils Percent Auto 77.2 % (50.0-70.0); Platelet Count Result 206 K/mm3 (150-420); Red Blood Count 2.75 M/mm3 (4.20-5.40); Red Cell Distribution Width 14.5 % (11.6-14.4); White Blood Count 11.7 K/mm3 (4.8-10.8)
[2024-10-22 07:05] LABS: INR 1.3; Prothrombin Time 13.8 Seconds (9.50-12.1)
[2024-10-22 08:00] VITALS: BP 98/54; PULSE 69; PULSE 83; RESP 20; TEMP 36.5; O2SAT 96
[2024-10-22] MEDS: PANTOPRAZOLE 40 MG TABLET PO (09:38)
--- NOTE | 2024-10-22 10:25 | P.HP_ITS ---
H&P: HPI History of Present Illness Date/Time: 10/22/24 10:25 Chief Complaint: shortness of breath /dyspnea Narrative: This is an 79-year-old female with a significant past medical history of hypertension, diabetes, rheumatoid arthritis, chronic kidney disease, DVT on Coumadin, diastolic CHF who presented to the hospital with complaints of shortness of breath/dyspnea. patient states that when she was at [facility] they were getting her up out of the bed yesterday with a Karina lift and she became unresponsive. She states she has not been feeling well for the last few days and has not been eating or drinking. She also reported about 1 week ago she had a broken tooth that led to an abscess. On exam today her right side of her face is swollen down to her cheek. She states her pain is well controlled. She denies any fever, chills, nausea, vomiting, diarrhea, abdominal pain, chest pain, shortness a breath. Workup in the hospital included a chest x-ray which was negative for any acute cardiopulmonary disease. Head CT was negative for any acute intracranial hemorrhage, mass, acute infarct, it did show atrophy and chronic white matter changes. Initial labs showed a normal white blood cell count of 10.6, hemoglobin 11.3, INR was greater than 19, sodium 131, bicarb 20, creatinine 1.84, EGFR 26, blood sugars 126-163, lactic acid was normal at 1.1, proBNP 7008, TSH 1.15, lipase was normal at 16. UA was obtained and showed 1+ urine protein, 1+ urine blood, 2+ leukocytes, greater than 75 WBC, 2+ urine bacteria. Respiratory panel was negative for influenza A and B, RSV, COVID. Urine culture was obtained and pending. Last urine culture was reviewed and grew Klebsiella pneumoniae which was pansensitive. Initial EKG showed a flutter with RVR with a rate of 123, right bundle branch block, left anterior fascicular block, QTC 448. Patient was given 15 mg of Cardizem IV push while in the ED and a repeat EKG shown a flutter with RVR with a rate of 106, QTC 462. Patient was given a dose of vitamin K, digoxin, Lipitor, and Rocephin while in the ED. Review of Systems Review of Systems: All systems reviewed & are unremarkable except as noted in HPI and below PMFSH Past Medical History Medical History Diabetic polyneuropathy Type 2 diabetes mellitus Morbid obesity with BMI of 45.0-49.9, adult Chronic kidney disease, stage 3a Diastolic heart failure GERD without esophagitis H/O TIA (transient ischemic attack) and stroke H/O deep venous thrombosis Hyperlipidemia Essential (primary) hypertension Surgical History Surgical History History of hysterectomy S/P cholecystectomy Family History Family History Mother Family history of migraine headaches Family history of arthritis Family history of Alzheimer's disease Father Family history of cataracts Family history of diabetes mellitus in first degree relative Family history of congestive heart failure Family history of heart disease in male family member before age 55 Family history of hearing loss Sibling Family history of diabetes mellitus in first degree relative Other Diabetes mellitus Social History Social History Social History: She is (for over 50 years) and lives by herself in a small home on her son's property. She has 2 sons 1 of which is living in a half-way due to blindness an intellectual disability associated with extreme prematurity. She has a daughter who is chronically ill and has had a prior cardiac arrest but is still living. Then her youngest son planned is relatively healthy and only the property she lives on. She used to smoke about a quarter pack of cigarettes per day for about 20 years but quit when she was in her 40s. She used to drink an alcoholic beverage every couple of weeks but has not done so in many years. She denies history of illicit substance use. Code status: DNR/DNI (per patient request) Surrogate decision maker: Dmitry (son) Smoking status: Never smoker Tobacco type: cigarettes Second hand tobacco smoke exposure: No Smoking end date: 09/02/82 Additional smoking assessment comments: patient smoked in her 30's Alcohol intake: never Substance use: never Substance use type: does not use Do You Feel Safe in your Home?: Yes Lack of Transportation: No Lack of Food: Never True Current Housing: I Have Housing Concerned About Future Housing: No Difficulty Paying Gas/Electric Bills: No Difficulty Paying for Meds: No Currently Unemployed: No Education: Decline to Answer Difficulty w/ Childcare or Family Care: No Living arrangements: alone Occupation/Education: retired Additional occupation/education comments: [employer] Gender identity (if verbalized by the patient): Female Sexual Orientation (if Verbalized by the Patient): Straight or Heterosexual Spiritual care concerns: No Agree to blood products: Yes Meds Home Medications and Allergies Home Medications ?Medication ?Instructions ?Recorded ?Confirmed ?Type furosemide 20 mg tablet (Lasix) 20 mg PO DAILY #30 tabs 01/17/23 10/21/24 Rx lisinopril 5 mg tablet 5 mg PO QAM #20 tabs 01/26/23 10/21/24 Rx metformin 500 mg tablet 500 mg PO BID 09/18/24 10/21/24 History pantoprazole 40 mg tablet,delayed 40 mg PO DAILY 09/18/24 10/21/24 History release pioglitazone 30 mg tablet 30 mg PO DAILY 09/18/24 10/21/24 History warfarin 1 mg tablet 2 mg PO DAILY 09/18/24 10/21/24 History warfarin 5 mg tablet 5 mg PO DAILY 09/18/24 10/21/24 History apixaban 5 mg tablet (Eliquis) 5 mg PO Q12HR #60 tabs 09/28/24 10/21/24 Rx cyclobenzaprine 10 mg tablet 10 mg PO Q12H PRN Muscle Spasm, 09/28/24 10/21/24 Rx Neck pain #30 tabs acetaminophen 500 mg tablet 500 mg PO Q6H PRN fever or pain 10/21/24 10/21/24 History (Acetaminophen Extra Strength) atorvastatin 20 mg tablet 20 mg PO HS 10/21/24 10/21/24 History gabapentin 100 mg capsule 300 mg PO TID 10/21/24 10/21/24 History polyethylene glycol 3350 17 gram 17 g PO DAILY PRN constipation 10/21/24 10/21/24 History oral powder packet (Miralax) sennosides 8.6 mg tablet (Senna 8.6 mg PO Q12H PRN constipation 10/21/24 10/21/24 History Lax) Allergies Allergy/AdvReac Type Severity Reaction Status Date / Time Iodinated Contrast Media Allergy Intermediate Rash Verified 10/21/24 08:38 Vital Signs Vital Signs - 24 hr 10/21/24 10:53 10/21/24 11:01 10/21/24 11:16 Temperature Pulse Rate 113 H 83 95 Respiratory Rate 19 20 14 Blood Pressure 141/95 H 98/69 L 96/60 L Pulse Oximetry 98 99 100 Oxygen Delivery Room Air Room Air 10/21/24 11:31 10/21/24 11:46 10/21/24 12:01 Temperature Pulse Rate 109 H 106 H 97 Respiratory Rate 18 20 18 Blood Pressure 100/77 128/70 96/39 L Pulse Oximetry 97 100 Oxygen Delivery Room Air 10/21/24 12:16 10/21/24 13:00 10/21/24 13:31 Temperature Pulse Rate 83 123 H 112 H Respiratory Rate 15 20 21 H Blood Pressure 105/71 98/62 L 90/62 L Pulse Oximetry 95 98 Oxygen Delivery 10/21/24 14:00 10/21/24 14:30 10/21/24 16:00 Temperature 98.5 F 99.8 F H Pulse Rate 98 86 111 H Respiratory Rate 15 16 16 Blood Pressure 90/70 L 95/68 L 105/54 L Pulse Oximetry 98 98 95 Oxygen Delivery Room Air Room Air 10/22/24 00:00 Temperature 97.9 F Pulse Rate 96 Respiratory Rate 20 Blood Pressure 102/41 L Pulse Oximetry 97 Oxygen Delivery Room Air Exam Narrative: General: In no acute distress, well nourished Head: atraumatic, no encephalopathy Eyes:PERRLA, sclera clear ENT: moist mucous membranes, nasal passages clear , swelling to right cheek and sinus, multiple missing teeth and dental caries Neck: supple, no JVD, no adenopathy, trachea midline Cardiac: Normal S1 and S2. No murmur, gallops or friction rubs, peripheral pulses intact. Respiratory: Lungs clear to auscultation, no adventitious lung sounds, currently on room air Gastrointestinal: soft, non-distended, non-tender, normoactive bowel sounds. : Patterson catheter placed due to urinary retention, draining clear yellow urine Extremities: moves all extremities well, bilateral lower extremity edema Skin: excessively dry and flaky, yeast infection to gluteal folds and neck fold Neuro: Alert and oriented x4, cranial nerves intact, no neuro deficits. Psych: normal mood, normal affect, interactive H&P: Results Labs Labs: Short CBC 10/22/24 Range/Units 06:30 WBC 11.7 H (4.8-10.8) K/mm3 Hgb 8.8 L (11.7-13.8) g/dL Hct 26.7 L (35.0-42.0) % Plt Count 206 (150-420) K/mm3 BMP 10/21/24 10/22/24 09:36 05:32 Sodium 136 Potassium 4.9 Chloride 104 Carbon Dioxide 23 BUN 56 H 51 H Creatinine 1.84 H 1.50 H Glucose 126 H Calcium 8.9 8.4 L Liver Function 10/21/24 10/22/24 Range/Units 09:36 05:32 Total Bilirubin 0.7 (0.00-1.00) mg/dL AST < 10 L (15-37) U/L ALT 10 L (14-59) U/L Alkaline Phosphatase 71 (46-116) U/L Albumin 2.3 L 1.8 L (3.4-5.0) g/dL Urine 10/21/24 Range/Units 09:03 Urine Color Yellow (Yellow) Urine Appearance Clear (Clear) Urine pH 5.5 (5.0-8.0) Ur Specific [place] 1.015 (1.010-1.020) Urine Protein 1+ H (Negative) Urine Glucose (UA) Negative (Negative) Imaging Chest x-ray: Radiologist's impression: EXAMINATION: XR chest 1V portable 10/21/2024 10:05 INDICATION: Shortness of breath PROCEDURE: AP portable chest COMPARISON: 09/18/2024 FINDINGS: The lungs are clear. The cardiomediastinal silhouette is within normal limits. There are no pleural effusions. There is no pneumothorax suspected. IMPRESSION: 1: NO ACUTE CARDIOPULMONARY DISEASE. Reviewed, dictated and finalized at location B. IESEL ENGINE SPECIALIST CT scan - head: Radiologist's impression: CT head without contrast Indication: Syncope COMPARISON: 09/24/2024 Technique: Serial scans were obtained through the brain without the administration of contrast. Dose reduction technique was used on this scan by utilizing automated exposure control and iterative reconstruction technique. The dose-length product (DLP) was 605.33 mGy-cm. Findings: There is no evidence of intracranial hemorrhage, mass lesion, or acute infarct. The ventricles and subarachnoid spaces are dilated, consistent with mild atrophy. Low attenuation regions are seen within the periventricular white matter bilaterally, likely representing changes from chronic microvascular ischemic disease. There is no evidence of edema, mass effect or midline shift. The visualized paranasal sinuses and mastoid air cells are clear. Impression: No intracranial hemorrhage, mass, or acute infarct. Atrophy and chronic white matter changes, as above. Reviewed, dictated and finalized at location M. IESEL ENGINE SPECIALIST Assessment and Plan Assessment and plan (1) UTI (urinary tract infection): Code(s): N39.0 - Urinary tract infection, site not specified Status: Acute Assessment and Plan: * UA showed 1+ urine protein, 1+ urine blood, 2+ leukocytes, greater than 75 urine WBC, 2+ bacteria * urine culture obtained and pending * previous urine culture from 09/19/2024 showed Klebsiella pneumoniae which was pansensitive * Rocephin changed to Unasyn to cover for abscessed tooth and UTI. antibiotic choice was discussed with Infectious Disease pharmacist (2) TATUM (acute kidney injury): Code(s): N17.9 - Acute kidney failure, unspecified Status: Resolved Assessment and Plan: * initial creatinine 1.84, EGFR 26 * baseline creatinine 0.96-1.0, baseline EGFR 53-56 * continue to hold Lisinopril and Lasix * hold nephrotoxic medication and also avoid testing with contrast (3) Abscessed tooth: Code(s): K04.7 - Periapical abscess without sinus Status: Acute Assessment and Plan: * swelling noted to right side of face mostly cheek and sinus * will obtain echocardiogram * will also get CT of facial bones with contrast, premedicate due to contrast allergy * patient started on Unasyn and doxycycline, antibiotic choice was discussed with Infectious Disease pharmacy (4) Urinary retention: Code(s): R33.9 - Retention of urine, unspecified Status: Acute Assessment and Plan: * nursing reported greater than 950 mL of urine on bladder scan * Patterson catheter placed for urinary retention * was noted to have yeast when inserting urinary catheter * will treat with 150 mg Diflucan (5) Supratherapeutic INR: Code(s): R79.1 - Abnormal coagulation profile Status: Acute Assessment and Plan: likely secondary to dehydration and acute kidney injury * initial INR greater than 19 on admission * patient was given 2 doses of vitamin K (6) DVT (deep venous thrombosis): Qualifiers: Affected thrombotic vein of extremity: tibial Chronicity: acute DVT location: lower extremity Laterality: right Qualified Code(s): I82.441 - Acute embolism and thrombosis of right tibial vein Code(s): I82.409 - Acute embolism and thrombosis of unspecified deep veins of unspecified lower extremity Status: Acute Assessment and Plan: * INR currently 1.3 * will start 2 mg of Coumadin tonight * continue to trend * INR target range 2 to 3 (7) Type 2 diabetes mellitus without complications: Qualifiers: Diabetes mellitus senior living insulin use: without assistant terminal manager use Qu alified Code(s): E11.9 - Type 2 diabetes mellitus without complications Code(s): E11.9 - Type 2 diabetes mellitus without complications Status: Chronic Assessment and Plan: * Blood sugars ranging 120-163 * Hgb A1C 6.6 on 10/01/2024 * Accu checks AC/HS * low-dose SSI ordered * hypoglycemic protocol in place * Diabetic diet ordered * continue to hold metformin and pioglitazone (8) GERD without esophagitis: Code(s): K21.9 - Gastro-esophageal reflux disease without esophagitis Status: Acute Assessment and Plan: * Protonix started (9) Hyperlipidemia: Qualifiers: Hyperlipidemia type: mixed hyperlipidemia Qualified Code(s): E78.2 - Mixed hyperlipidemia Code(s): E78.5 - Hyperlipidemia, unspecified Status: Acute Assessment and Plan: * continue atorvastatin (10) Essential (primary) hypertension: Code(s): I10 - Essential (primary) hypertension Status: Chronic Assessment and Plan: * blood pressure ranging 95/68 to 105/54 * lisinopril is on hold due to acute kidney injury and hypotension Quality VTE Prophylaxis VTE prophylaxis: pharmacologic ordered Hospitalist MIPS Advance Care Plan I have confirmed that the patient's Advanced Care Plan is present, code status is documented, or surrogate decision maker is listed in patient medical record.: Yes Medication Reconciliation I have utilized all available resources to obtain, update and review the patients current medications (includes all prescriptions, OTC, herbals, cannabis, and nutritional supplements).: Yes
[2024-10-22 12:00] VITALS: PULSE 83
[2024-10-22 12:11] LABS: Glucose Point of Care 125 mg/dl (65-105)
[2024-10-22] MEDS: DOXYCYCLINE HYCLATE 100 MG TABLET PO ×2 (13:47→21:41)
[2024-10-22] MEDS: AMPICILLIN SULB 3 GM/NS 100 ML 3 GM/100 ML VIAL IVPB ×2 (13:47→18:03)
[2024-10-22] MEDS: FLUCONAZOLE 150 MG TABLET PO (13:52)
[2024-10-22 16:00] VITALS: BP 102/60; PULSE 95; RESP 18; TEMP 36.1; O2SAT 95
[2024-10-22 17:11] LABS: Glucose Point of Care 124 mg/dl (65-105)
--- NOTE | 2024-10-22 17:31 | PC.NURSE ---
Patient changed to inpatient status.
[2024-10-22] MEDS: WARFARIN (*PBKC) 2 MG TABLET PO (17:58)
[2024-10-22] MEDS: predniSONE 10 MG TABLET 50 MG PO (18:03)
[2024-10-22 19:04] LABS: INR 1.1; Prothrombin Time 11.9 Seconds (9.50-12.1)
[2024-10-22 20:00] VITALS: PULSE 80
[2024-10-22] MEDS: ATORVASTATIN 10 MG TABLET 20 MG PO (21:40)
[2024-10-22] MEDS: ACETAMINOPHEN 325 MG TABLET 650 MG PO (21:41)
[2024-10-22] MEDS: CYCLOBENZAPRINE HCL 10 MG TABLET PO (21:41)
[2024-10-22] MEDS: TOLNAFTATE 1% POWDER 45 GM BTL 1 APPLIC TOPICAL (21:44)
[2024-10-22 22:01] LABS: Glucose Point of Care 174 mg/dl (65-105)
[2024-10-23] VITALS: BP 108/52; PULSE 80; PULSE 86; RESP 16; TEMP 37.2; O2SAT 94
[2024-10-23] MEDS: AMPICILLIN SULB 3 GM/NS 100 ML 3 GM/100 ML VIAL IVPB ×4 (00:07→18:10)
[2024-10-23] MEDS: predniSONE 10 MG TABLET 50 MG PO ×2 (00:45→06:49)
[2024-10-23 04:00] VITALS: PULSE 73
[2024-10-23] MEDS: GABAPENTIN 300 MG CAPSULE PO ×3 (06:14→21:36)
[2024-10-23] MEDS: diphenhydrAMINE HCl INJ 50 MG/ML VIAL IV PUSH (06:47)
[2024-10-23 07:00] LABS: Hematocrit 27.9 % (35.0-42.0); Hemoglobin 9.1 g/dL (11.7-13.8); Mean Corpuscular HGB Conc 32.6 g/dL (32-36); Mean Corpuscular Hemoglobin 31.2 pg (27.0-31.0); Mean Corpuscular Volume 95.5 fL (78.0-102.0); Mean Platelet Volume 11.7 fl (9.2-11.8); Platelet Count Result 222 K/mm3 (150-420); Red Blood Count 2.92 M/mm3 (4.20-5.40); Red Cell Distribution Width 14.3 % (11.6-14.4); White Blood Count 10.4 K/mm3 (4.8-10.8)
[2024-10-23 07:13] LABS: INR 1.1
[2024-10-23 07:17] LABS: Alanine Aminotransferase 17 U/L (14-59); Albumin Level 1.8 g/dL (3.4-5.0); Alkaline Phosphatase 72 U/L (46-116); Anion Gap -2 mmol/L (4-12); Aspartate Amino Transferase 13 U/L (15-37); Bilirubin,Total 0.4 mg/dL (0.00-1.00); Blood Urea Nitrogen 41 mg/dL (7-18); Calcium 8.4 mg/dL (8.5-10.1); Carbon Dioxide 23 mmol/L (21-32); Chloride 100 mmol/L (98-108); Estimated CRCL calculation 43 ml/min; Estimated Glomerular Filt Rate 41; Glucose 182 mg/dL (70-99); Osmolality Calculated 267 mOsm/kg (285-295); Potassium 4.3 mmol/L (3.5-5.1); Sodium 121 mmol/L (136-145); Total Protein 5.7 g/dL (6.4-8.2)
[2024-10-23 07:29] LABS: Band Neutrophils Percent 0 % (0-6); Lymphocytes Absolute Manual 0.72 K/mm3 (1.1-4.5); Lymphocytes Percent Manual 7 % (18-44); Monocytes Percent Manual 1 % (3-9); Neutrophils Absolute Manual 9.56 K/mm3 (1.7-7.2); Neutrophils Percent Manual 92 % (46-73); Platelet Estimate Adequate (Adequate); Total Cells Counted 100
[2024-10-23 08:00] VITALS: BP 120/54; PULSE 79; PULSE 84; RESP 18; TEMP 36.1; O2SAT 98
[2024-10-23 08:41] LABS: Glucose Point of Care 191 mg/dl (65-105)
[2024-10-23] MEDS: DOXYCYCLINE HYCLATE 100 MG TABLET PO ×2 (08:50→21:35)
[2024-10-23] MEDS: TOLNAFTATE 1% POWDER 45 GM BTL 1 APPLIC TOPICAL (08:50)
[2024-10-23] MEDS: PANTOPRAZOLE 40 MG TABLET PO (08:50)
--- NOTE | 2024-10-23 09:27 | P.PNIM_ITS ---
Progress Note: A&P Assessment and Plan (1) UTI (urinary tract infection): Code(s): N39.0 - Urinary tract infection, site not specified Status: Acute Assessment and Plan: * UA showed 1+ urine protein, 1+ urine blood, 2+ leukocytes, greater than 75 urine WBC, 2+ bacteria * urine culture obtained and pending * previous urine culture from 09/19/2024 showed Klebsiella pneumoniae which was pansensitive * Rocephin changed to Unasyn to cover for abscessed tooth and UTI. antibiotic choice was discussed with Infectious Disease pharmacist 10/23 * Urine culture showing Klebsiella pneumoniae on preliminary read * continue with Unasyn (2) TATUM (acute kidney injury): Code(s): N17.9 - Acute kidney failure, unspecified Status: Resolved Assessment and Plan: * initial creatinine 1.84, EGFR 26 * baseline creatinine 0.96-1.0, baseline EGFR 53-56 * continue to hold Lisinopril and Lasix * hold nephrotoxic medication and also avoid testing with contrast 10/23 * creatinine 1.25, EGFR 41 * continue to trend * continue to hold lisinopril and Lasix (3) Abscessed tooth: Code(s): K04.7 - Periapical abscess without sinus Status: Acute Assessment and Plan: * swelling noted to right side of face mostly cheek and sinus * will obtain echocardiogram * will also get CT of facial bones with contrast, premedicate due to contrast allergy * patient started on Unasyn and doxycycline, antibiotic choice was discussed with Infectious Disease pharmacy 10/23 * CT of the facial bones with contrast, results pending * continue Unasyn and doxycycline * will need echo cardiogram today to rule out endocarditis (4) Urinary retention: Code(s): R33.9 - Retention of urine, unspecified Status: Acute Assessment and Plan: * nursing reported greater than 950 mL of urine on bladder scan * Patterson catheter placed for urinary retention * was noted to have yeast when inserting urinary catheter * will treat with 150 mg Diflucan 10/23 * no change to current treatment plan (5) Supratherapeutic INR: Code(s): R79.1 - Abnormal coagulation profile Status: Acute Assessment and Plan: likely secondary to dehydration and acute kidney injury * initial INR greater than 19 on admission * patient was given 2 doses of vitamin K 10/23 * INR 1.1 (6) DVT (deep venous thrombosis): Qualifiers: Affected thrombotic vein of extremity: tibial Chronicity: acute DVT location: lower extremity Laterality: right Qualified Code(s): I82.441 - Acute embolism and thrombosis of right tibial vein Code(s): I82.409 - Acute embolism and thrombosis of unspecified deep veins of unspecified lower extremity Status: Acute Assessment and Plan: * INR currently 1.3 * will start 2 mg of Coumadin tonight * continue to trend * INR target range 2 to 3 10/23 * INR 1.1 * will increase Coumadin to 4 mg tonight * continue to trend (7) Type 2 diabetes mellitus without complications: Qualifiers: Diabetes mellitus retirement insulin use: without retirement use Qualified Code(s): E11.9 - Type 2 diabetes mellitus without complications Code(s): E11.9 - Type 2 diabetes mellitus without complications Status: Chronic Assessment and Plan: * Blood sugars ranging 120-163 * Hgb A1C 6.6 on 10/01/2024 * Accu checks AC/HS * low-dose SSI ordered * hypoglycemic protocol in place * Diabetic diet ordered * continue to hold metformin and pioglitazone 10/23 * blood sugars ranging 191-242 * Lantus 10 units ordered for tonight (8) GERD without esophagitis: Code(s): K21.9 - Gastro-esophageal reflux disease without esophagitis Status: Acute Assessment and Plan: * Protonix started 10/23 * no change to current treatment plan (9) Hyperlipidemia: Qualifiers: Hyperlipidemia type: mixed hyperlipidemia Qualified Code(s): E78.2 - Mixed hyperlipidemia Code(s): E78.5 - Hyperlipidemia, unspecified Status: Acute Assessment and Plan: * continue atorvastatin 10/23 * no change to current treatment plan (10) Essential (primary) hypertension: Code(s): I10 - Essential (primary) hypertension Status: Chronic Assessment and Plan: * blood pressure ranging 95/68 to 105/54 * lisinopril is on hold due to acute kidney injury and hypotension 10/23 * continue to hold lisinopril due to TATUM * blood pressure is improving, 108/52 to 120/54 Time Spent With Patient Time with patient: 25 - 35 minutes Subjective Date/time seen: 10/23/24 09:27 Interval history: Interval history: This is an 79-year-old female with a significant past medical history of hypertension, diabetes, rheumatoid arthritis, chronic kidney disease, DVT on Coumadin, diastolic CHF who presented to the hospital with complaints of shortness of breath/dyspnea. patient states that when she was at [facility] and rehab they were getting her up out of the bed yesterday with a Karina lift and she became unresponsive. She states she has not been feeling well for the last few days and has not been eating or drinking. She also reported about 1 week ago she had a broken tooth that led to an abscess. On exam today her right side of her face is swollen down to her cheek. She states her pain is well controlled. She denies any fever, chills, nausea, vomiting, diarrhea, abdominal pain, chest pain, shortness a breath. Workup in the hospital included a chest x-ray which was negative for any acute cardiopulmonary disease. Head CT was negative for any acute intracranial hemorrhage, mass, acute infarct, it did show atrophy and chronic white matter changes. Initial labs showed a normal white blood cell count of 10.6, hemoglobin 11.3, INR was greater than 19, sodium 131, bicarb 20, creatinine 1.84, EGFR 26, blood sugars 126-163, lactic acid was normal at 1.1, proBNP 7008, TSH 1.15, lipase was normal at 16. UA was obtained and showed 1+ urine protein, 1+ urine blood, 2+ leukocytes, greater than 75 WBC, 2+ urine bacteria. Respiratory panel was negative for influenza A and B, RSV, COVID. Urine culture was obtained and pending. Last urine culture was reviewed and grew Klebsiella pneumoniae which was pansensitive. Initial EKG showed a flutter with RVR with a rate of 123, right bundle branch block, left anterior fascicular block, QTC 448. Patient was given 15 mg of Cardizem IV push while in the ED and a repeat EKG shown a flutter with RVR with a rate of 106, QTC 462. Patient was given a dose of vitamin K, digoxin, Lipitor, and Rocephin while in the ED. Subjective: patient denies any new complaints today. Labs reviewed. Review of Systems Review of Systems: All systems reviewed & are unremarkable except as noted in HPI and below Exam Narrative: General: In no acute distress, well nourished Cardiac: Normal S1 and S2. No murmur, gallops or friction rubs, peripheral pulses intact. Respiratory: Lungs clear to auscultation, no adventitious lung sounds, currently on room air Gastrointestinal: soft, non-distended, non-tender, normoactive bowel sounds. : Patterson catheter placed due to urinary retention, draining clear dark yellow urine Extremities: moves all extremities well, bilateral lower extremity edema Skin: excessively dry and flaky, yeast infection to gluteal folds and neck ecchymosis on right side Neuro: Alert and oriented x4 Objective Data Vital Signs Vital Signs: Vital Signs - 24 hr 10/22/24 12:00 10/22/24 16:00 10/22/24 16:00 Temperature 96.9 F L Pulse Rate 83 95 95 Respiratory Rate 18 Blood Pressure 102/60 Pulse Oximetry 95 Oxygen Delivery Room Air 10/22/24 20:00 10/23/24 00:00 10/23/24 00:00 Temperature 99.0 F Pulse Rate 80 80 86 Respiratory Rate 16 Blood Pressure 108/52 L Pulse Oximetry 94 Oxygen Delivery Room Air 10/23/24 04:00 10/23/24 08:00 10/23/24 08:00 Temperature 97 F L Pulse Rate 73 84 79 Respiratory Rate 18 Blood Pressure 120/54 L Pulse Oximetry 98 Oxygen Delivery Room Air Intake/Output Intake/Output: Intake & Output 10/20/24 10/21/24 10/22/24 10/23/24 23:59 23:59 23:59 23:59 Intake Total 602 1540 1180 Output Total 825 1550 750 Balance -223 -10 430 Meds/Results Medications: Active Medications Generic Name Dose Route Start Last Admin Trade Name Freq PRN Reason Stop Dose Admin Acetaminophen 650 mg 10/21/24 18:38 10/22/24 21:41 Acetaminophen 325 Mg Tablet PO 650 mg Q4H PRN Administration Mild Pain (1-3) or Fever Atorvastatin Calcium 20 mg 10/21/24 21:00 10/22/24 21:40 Atorvastatin 10 Mg Tablet PO 20 mg HS VALENTIN Administration Cyclobenzaprine HCl 10 mg 10/21/24 14:09 10/22/24 21:41 Cyclobenzaprine Hcl 10 Mg Tablet PO 10 mg Q12H PRN Administration Muscle Spasm, Neck pain Dextrose 12.5 gm 10/21/24 14:11 Dextrose 50% 25 Gm/50 Ml Syringe IV PUSH PRN PRN Hypoglycemia Protocol Doxycycline Hyclate 100 mg 10/22/24 13:10 10/23/24 08:50 Doxycycline Hyclate 100 Mg Tablet PO 100 mg Q12HR VALENTIN Administration Gabapentin 300 mg 10/21/24 22:00 10/23/24 06:14 Gabapentin 300 Mg Capsule PO 300 mg Q8HR VALENTIN Administration Glucagon 1 mg 10/21/24 14:11 Glucagon For Inj 1 Mg Vial IM PRN PRN Hypoglycemia Protocol Glucose 15 gm 10/21/24 14:11 Glucose Oral Gel 15 Gm Of Glucse In 37.5 Gm Tube PO PRN PRN Hypoglycemia Protocol Dextrose 1,000 mls @ 100 mls/hr 10/21/24 14:11 Dextrose 5% 1,000 Ml IVPB PRN PRN Hypoglycemia Protocol Ampicillin Sodium/Sulbactam Sodium 3 gm in 100 mls @ 200 mls/hr 10/22/24 13:10 10/23/24 06:45 Unasyn 3 Gm/Ns 100 Ml IVPB Infused Q6HR VALENTIN Infusion Insulin Human Lispro 2 - 5 units 10/21/24 17:00 10/23/24 08:49 Insulin Human Lispro (*Bkc) 1,000 Units/10 Ml Vial SUB-Q Not Given [facility] Protocol Ondansetron HCl 4 mg 10/21/24 18:38 Ondansetron Inj 4 Mg/2 Ml Vial IV PUSH Q6H PRN Nausea And Vomiting Pantoprazole Sodium 40 mg 10/22/24 09:00 10/23/24 08:50 Pantoprazole 40 Mg Tablet PO 40 mg DAILY VALENTIN Administration Perflutren Lipid Microsphere 0 ml 10/23/24 09:26 Perflutren Lipid Microspheres 1.5 Ml Vial Diluted To 10 Ml Total Volume IV PUSH 10/26/24 09:26 ONCE PRN adequate visualization Protocol Polyethylene Glycol 17 gm 10/21/24 18:39 Polyethylene Glycol 3350 17 Gm Powd.Pack PO DAILY PRN constipation Senna 8.6 mg 10/21/24 18:39 Sennosides 8.6 Mg Tablet PO Q12H PRN constipation Tolnaftate 1 applic 10/22/24 21:00 10/23/24 08:50 Tolnaftate 1% Powder 45 Gm Btl TOPICAL 1 applic Q12HR VALENTIN Administration Warfarin Sodium 4 mg 10/23/24 17:00 Warfarin (*Pbkc) 2 Mg Tablet PO DAILY@1700 VALENTIN Radiology Results: ITS Impressions Chest X-Ray 10/21/24 10:07 IMPRESSION: 1: NO ACUTE CARDIOPULMONARY DISEASE. Head CT 10/21/24 10:07 Impression: No intracranial hemorrhage, mass, or acute infarct. Atrophy and chronic white matter changes, as above. Labs Labs: Laboratory Results - last 24 hr 10/22/24 10/22/24 10/22/24 12:05 17:06 18:21 WBC RBC Hgb Hct MCV MCH MCHC RDW Plt Count MPV Immature Gran % (Auto) Neut % (Auto) Lymph % (Auto) [place] % (Auto) Eos % (Auto) Baso % (Auto) Lymph # (Auto) [place] # (Auto) Eos # (Auto) Baso # (Auto) Abs Immat Gran (auto) Absolute Neuts (auto) Absolute Nucleated RBC Total Counted Neutrophils % (Manual) Band Neutrophils % Lymphocytes % (Manual) Monocytes % (Manual) Nucleated RBC % Abs Neuts (Manual) Abs Lymphs (Manual) Abs Monocytes (Manual) Platelet Estimate Schistocytes PT 11.9 INR 1.1 Sodium Potassium Chloride Carbon Dioxide Anion Gap BUN Creatinine Estim Creat Clear Calc Estimated GFR Glucose POC Capillary Glucose 125 H 124 H Calculated Osmolality Calcium Total Bilirubin AST ALT Alkaline Phosphatase Total Protein Albumin 10/22/24 10/23/24 10/23/24 21:55 06:40 08:34 WBC 10.4 RBC 2.92 L Hgb 9.1 L Hct 27.9 L MCV 95.5 MCH 31.2 H MCHC 32.6 RDW 14.3 Plt Count 222 MPV 11.7 Immature Gran % (Auto) Not Reportable Neut % (Auto) Not Reportable Lymph % (Auto) Not Reportable [place] % (Auto) Not Reportable Eos % (Auto) Not Reportable Baso % (Auto) Not Reportable Lymph # (Auto) Not Reportable [place] # (Auto) Not Reportable Eos # (Auto) Not Reportable Baso # (Auto) Not Reportable Abs Immat Gran (auto) Not Reportable Absolute Neuts (auto) Not Reportable Absolute Nucleated RBC Not Reportable Total Counted 100 Neutrophils % (Manual) 92 H Band Neutrophils % 0 Lymphocytes % (Manual) 7 L Monocytes % (Manual) 1 L Nucleated RBC % Not Reportable Abs Neuts (Manual) 9.56 H Abs Lymphs (Manual) 0.72 L Abs Monocytes (Manual) 0.10 Platelet Estimate Adequate Schistocytes Not Reportable PT 12.0 INR 1.1 Sodium 121 L Potassium 4.3 Chloride 100 Carbon Dioxide 23 Anion Gap -2 L BUN 41 H Creatinine 1.25 H Estim Creat Clear Calc 43 Estimated GFR 41 L Glucose 182 H POC Capillary Glucose 174 H 191 H Calculated Osmolality 267 L Calcium 8.4 L Total Bilirubin 0.4 AST 13 L ALT 17 Alkaline Phosphatase 72 Total Protein 5.7 L Albumin 1.8 L Quality VTE Prophylaxis VTE prophylaxis: pharmacologic ordered
[2024-10-23 12:00] VITALS: PULSE 90
[2024-10-23] MEDS: INSULIN HUMAN LISPRO (*BKC) 1,000 UNITS/10 ML VIAL SUB-Q ×2 (12:26→18:11)
[2024-10-23 12:28] LABS: Glucose Point of Care 242 mg/dl (65-105)
--- NOTE | 2024-10-23 14:15 | PC.NURSE ---
Kodi Harmon from [facility] vascular here for Midline insertion
[2024-10-23] MEDS: SODIUM CHLORIDE 0.9% IV 1,000 ML 100 ML IV CONT (15:31)
[2024-10-23 16:00] VITALS: BP 128/70; PULSE 70; RESP 16; TEMP 36.4; O2SAT 96
--- NOTE | 2024-10-23 16:00 | ECHOL_ITS ---
Patient Info Name: Akanksha Garner Age: 79 years : 1945 Gender: Female Ht: 68 in Wt: 262 lbs BSA: 2.44 m2 HR: 90 bpm BP: 120 / 54 mmHg Technical Quality: Good Exam Date: 10/23/2024 4:44 PM Exam Location: Echo Lab Patient Status: Inpatient Admit Date: 10/22/2024 Staff Ordering Physician: Kristal Delgado APRN Blanket Maker: Jamee Posey RDCS Attending Provider: Juventino Cabral MD Referring Physician: Danny BACK; Exam Type: CA echo limited Study Info Indications - R/O endocarditis Limited two-dimensional transthoracic echocardiogram is performed. Summary 1. Left ventricular chamber dimension is normal. 2. Left ventricular systolic function is normal, estimated at 65-70%. 3. The left ventricular diastolic function is indeterminate as it was not assessed.. 4. Left atrial chamber dimension is mildly enlarged. 5. There is mild tricuspid valve regurgitation. 6. Mild pulmonary hypertension, estimated pulmonary arterial systolic pressure is 49 mmHg. 7. There is trace pulmonic regurgitation. 8. Dilated inferior vena cava with >50% collapse upon inspiration consistent with elevated right atrial pressure, 10 mmHg. Left Ventricle The left ventricular diastolic function is indeterminate as it was not assessed.. Left ventricular chamber dimension is normal. Left ventricular systolic function is normal, estimated at 65-70%. Right Ventricle Right ventricular chamber dimension is normal. Right ventricular systolic function is normal. Left Atria Left atrial chamber dimension is mildly enlarged. Right Atria Right atrial chamber dimension is normal. Aortic Valve The aortic valve is trileaflet. There is no aortic valve stenosis. There is no aortic valve regurgitation. No aortic valve vegetation visualized. Pulmonic Valve There is trace pulmonic regurgitation. No pulmonic valve vegetation visualized. Mitral Valve There is no mitral valve stenosis. There is no mitral valve regurgitation. No mitral valve vegetation visualized. Tricuspid Valve There is mild tricuspid valve regurgitation. Mild pulmonary hypertension, estimated pulmonary arterial systolic pressure is 49 mmHg. No tricuspid valve vegetation visualized. Pericardium/Pleural There is no pericardial effusion. Inferior Vena Cava Dilated inferior vena cava with >50% collapse upon inspiration consistent with elevated right atrial pressure, 10 mmHg. Aorta The aortic root size at the sinus of Valsalva is normal. Left Ventricular Outflow Tract Name Value Normal LVOT 2D LVOT Diameter 2.2 cm Pulmonic Valve Name Value Normal PV Doppler PV Peak Velocity 128 cm/s PV Peak Gradient 7 mmHg PV Regurgitation Doppler [place] Peak End Diastolic Velocity 82 cm/s Tricuspid Valve Name Value Normal TV Regurgitation Doppler TR Peak Velocity 310 cm/s TR Peak Gradient 39 mmHg Estimated PAP/RSVP RA Pressure 10 mmHg <=5 PA Systolic Pressure 49 mmHg <36 RV Systolic Pressure 49 mmHg <36 Aortic Valve Name Value Normal AV Regurgitation 2D LVOT Area 3.8 cm2 Ventricles Name Value Normal LV Dimensions 2D/MM IVS Diastolic Thickness (2D) 0.8 cm 0.6-1.0 LVID Diastole (2D) 5.1 cm 3.8-5.2 LVIW Diastolic Thickness (2D) 0.9 cm 0.6-0.9 LVID Systole (2D) 3.6 cm 2.2-3.5 LVOT Diameter 2.2 cm LV Mass (2D Cubed) 149.30 g 67.00-162.00 LV Mass Index (2D Cubed) 61 g/m2 43-95 Relative Wall Thickness (2D) 0.34 LV Fractional Shortening/Ejection Fraction 2D/MM LV Fractional Shortening (2D) 29 % 27-45 LV EF (2D Teicholz) 55 % 54-74 Report Signatures
[2024-10-23 16:42] LABS: Glucose Point of Care 276 mg/dl (65-105)
[2024-10-23] MEDS: WARFARIN (*PBKC) 2 MG TABLET 4 MG PO (18:10)
[2024-10-23 20:00] VITALS: PULSE 64
--- NOTE | 2024-10-23 20:06 | PC.NURSE ---
Patient in bed with HOB elevated. Patterson cath patent and draining clear yellow urine. Patient had cardiac echo results pending.
[2024-10-23 21:30] LABS: Glucose Point of Care 258 mg/dl (65-105)
[2024-10-23] MEDS: INSULIN GLARGINE (*BKC) 1,000 UNITS/10 ML VIAL 10 UNITS SUB-Q (21:35)
[2024-10-23] MEDS: ATORVASTATIN 10 MG TABLET 20 MG PO (21:35)
[2024-10-23] MEDS: CYCLOBENZAPRINE HCL 10 MG TABLET PO (21:36)
[2024-10-23] MEDS: ACETAMINOPHEN 325 MG TABLET 650 MG PO (21:36)
[2024-10-24] VITALS: BP 92/57; PULSE 64; PULSE 71; RESP 16; TEMP 36.4; O2SAT 96
[2024-10-24] MEDS: AMPICILLIN SULB 3 GM/NS 100 ML 3 GM/100 ML VIAL IVPB ×5 (00:30→23:00)
[2024-10-24] MEDS: SODIUM CHLORIDE 0.9% IV 1,000 ML 100 ML IV CONT (01:02)
[2024-10-24 04:00] VITALS: PULSE 65
[2024-10-24 05:31] LABS: Hematocrit 26.1 % (35.0-42.0); Hemoglobin 8.3 g/dL (11.7-13.8); Mean Corpuscular HGB Conc 31.8 g/dL (32-36); Mean Corpuscular Hemoglobin 31.1 pg (27.0-31.0); Mean Corpuscular Volume 97.8 fL (78.0-102.0); Mean Platelet Volume 11.4 fl (9.2-11.8); Platelet Count Result 218 K/mm3 (150-420); Red Blood Count 2.67 M/mm3 (4.20-5.40); Red Cell Distribution Width 14.4 % (11.6-14.4); White Blood Count 10.3 K/mm3 (4.8-10.8)
[2024-10-24 05:43] LABS: INR 1.5; Prothrombin Time 15.9 Seconds (9.50-12.1)
[2024-10-24 05:51] LABS: Band Neutrophils Percent 0 % (0-6); Basophils Percent Manual 0 % (0-1); Eosinophils Percent Manual 0 % (1-6); Lymphocytes Absolute Manual 1.33 K/mm3 (1.1-4.5); Lymphocytes Percent Manual 13 % (18-44); Monocytes Percent Manual 3 % (3-9); Neutrophils Absolute Manual 8.65 K/mm3 (1.7-7.2); Neutrophils Percent Manual 84 % (46-73); Platelet Estimate Adequate (Adequate)
[2024-10-24 05:52] LABS: Alanine Aminotransferase 18 U/L (14-59); Albumin Level 1.6 g/dL (3.4-5.0); Alkaline Phosphatase 62 U/L (46-116); Anion Gap 8 mmol/L (4-12); Aspartate Amino Transferase < 10 U/L (15-37); Bilirubin,Total 0.3 mg/dL (0.00-1.00); Blood Urea Nitrogen 41 mg/dL (7-18); Carbon Dioxide 24 mmol/L (21-32); Chloride 104 mmol/L (98-108); Estimated CRCL calculation 37 ml/min; Estimated Glomerular Filt Rate 34; Glucose 255 mg/dL (70-99); Osmolality Calculated 301 mOsm/kg (285-295); Potassium 4.6 mmol/L (3.5-5.1); Sodium 136 mmol/L (136-145); Total Protein 5.2 g/dL (6.4-8.2)
[2024-10-24] MEDS: GABAPENTIN 300 MG CAPSULE PO ×2 (05:53→22:39)
[2024-10-24 08:00] VITALS: BP 110/50; PULSE 68; PULSE 78; RESP 14; TEMP 36.3; O2SAT 96
[2024-10-24 08:04] LABS: Glucose Point of Care 247 mg/dl (65-105)
--- NOTE | 2024-10-24 08:39 | P.PNIM_ITS ---
Progress Note: A&P Assessment and Plan (1) UTI (urinary tract infection): Code(s): N39.0 - Urinary tract infection, site not specified Status: Acute Assessment and Plan: * UA showed 1+ urine protein, 1+ urine blood, 2+ leukocytes, greater than 75 urine WBC, 2+ bacteria * urine culture obtained and pending * previous urine culture from 09/19/2024 showed Klebsiella pneumoniae which was pansensitive * Rocephin changed to Unasyn to cover for abscessed tooth and UTI. antibiotic choice was discussed with Infectious Disease pharmacist 10/23 * Urine culture showing Klebsiella pneumoniae on preliminary read * continue with Unasyn 10/24 * urine culture showing Klebsiella pneumoniae on final read which is pansensitive * continue Unasyn (2) TATUM (acute kidney injury): Code(s): N17.9 - Acute kidney failure, unspecified Status: Resolved Assessment and Plan: * initial creatinine 1.84, EGFR 26 * baseline creatinine 0.96-1.0, baseline EGFR 53-56 * continue to hold Lisinopril and Lasix * hold nephrotoxic medication and also avoid testing with contrast 10/23 * creatinine 1.25, EGFR 41 * continue to trend * continue to hold lisinopril and Lasix 10/24 * creatinine 1.46, EGFR 34 * continue to hold lisinopril and Lasix * continue to trend (3) Abscessed tooth: Code(s): K04.7 - Periapical abscess without sinus Status: Acute Assessment and Plan: * swelling noted to right side of face mostly cheek and sinus * will obtain echocardiogram * will also get CT of facial bones with contrast, premedicate due to contrast allergy * patient started on Unasyn and doxycycline, antibiotic choice was discussed with Infectious Disease pharmacy 10/23 * CT of the facial bones with contrast, results pending * continue Unasyn and doxycycline * will need echo cardiogram today to rule out endocarditis 10/24 * echo was negative for any vegetation, EF was 65-70 %, mild pulmonary hypertension * face CT showed right-sided peritonitis and extensive dental disease including tooth 2 which is broken with periapical lucencies, tooth 3 showing restorative with root canal, teeth 4 and 5 are broken, tooth 14 is broken with periapical lucencies. There is asymmetric fat stranding around the right parotid gland consistent with parotiditis. * Continue Unasyn and doxycycline-- she will likely require IV Unasyn for 7 days before being transitioned to oral antibiotic * she will need to follow up with a dentist as soon as possible upon discharge (4) Urinary retention: Code(s): R33.9 - Retention of urine, unspecified Status: Acute Assessment and Plan: * nursing reported greater than 950 mL of urine on bladder scan * Patterson catheter placed for urinary retention * was noted to have yeast when inserting urinary catheter * will treat with 150 mg Diflucan 10/23 * no change to current treatment plan (5) Supratherapeutic INR: Code(s): R79.1 - Abnormal coagulation profile Status: Acute Assessment and Plan: likely secondary to dehydration and acute kidney injury * initial INR greater than 19 on admission * patient was given 2 doses of vitamin K 10/23 * INR 1.1 10/24 * INR 1.5 * will increase Coumadin to 6 mg tonight * continue to trend (6) DVT (deep venous thrombosis): Qualifiers: Affected thrombotic vein of extremity: tibial Chronicity: acute DVT location: lower extremity Laterality: right Qualified Code(s): I82.441 - Acute embolism and thrombosis of right tibial vein Code(s): I82.409 - Acute embolism and thrombosis of unspecified deep veins of unspecified lower extremity Status: Acute Assessment and Plan: * INR currently 1.3 * will start 2 mg of Coumadin tonight * continue to trend * INR target range 2 to 3 10/23 * INR 1.1 * will increase Coumadin to 4 mg tonight * continue to trend 10/24 * INR 1.5 * will increase Coumadin to 6 mg tonight * continue to trend (7) Type 2 diabetes mellitus without complications: Qualifiers: Diabetes mellitus tank terminal gauger insulin use: without nursing home use Qualified Code(s): E11.9 - Type 2 diabetes mellitus without complications Code(s): E11.9 - Type 2 diabetes mellitus without complications Status: Chronic Assessment and Plan: * Blood sugars ranging 120-163 * Hgb A1C 6.6 on 10/01/2024 * Accu checks AC/HS * low-dose SSI ordered * hypoglycemic protocol in place * Diabetic diet ordered * continue to hold metformin and pioglitazone 10/23 * blood sugars ranging 191-242 * Lantus 18 units ordered for tonight (8) GERD without esophagitis: Code(s): K21.9 - Gastro-esophageal reflux disease without esophagitis Status: Acute Assessment and Plan: * Protonix started 10/23 * no change to current treatment plan (9) Hyperlipidemia: Qualifiers: Hyperlipidemia type: mixed hyperlipidemia Qualified Code(s): E78.2 - Mixed hyperlipidemia Code(s): E78.5 - Hyperlipidemia, unspecified Status: Acute Assessment and Plan: * continue atorvastatin 10/23 * no change to current treatment plan (10) Essential (primary) hypertension: Code(s): I10 - Essential (primary) hypertension Status: Chronic Assessment and Plan: * blood pressure ranging 95/68 to 105/54 * lisinopril is on hold due to acute kidney injury and hypotension 10/23 * continue to hold lisinopril due to TATUM * blood pressure is improving, 108/52 to 120/54 10/24 * continue to hold lisinopril due to TATUM * blood pressures are still well controlled (11) Hyponatremia: Code(s): E87.1 - Hypo-osmolality and hyponatremia Status: Acute Assessment and Plan: * sodium 121 * normal saline started at 100 mL/hour for hydration 10/24 * discontinue IV fluids * sodium corrected to 136 * encourage p.o. intake Time Spent With Patient Time with patient: 25 - 35 minutes Subjective Date/time seen: 10/24/24 08:39 Interval history: Interval history: This is an 79-year-old female with a significant past medical history of hypertension, diabetes, rheumatoid arthritis, chronic kidney disease, DVT on Coumadin, diastolic CHF who presented to the hospital with complaints of shortness of breath/dyspnea. patient states that when she was at [facility] and rehab they were getting her up out of the bed yesterday with a Karina lift and she became unresponsive. She states she has not been feeling well for the last few days and has not been eating or drinking. She also reported about 1 week ago she had a broken tooth that led to an abscess. On exam today her right side of her face is swollen down to her cheek. She states her pain is well controlled. She denies any fever, chills, nausea, vomiting, diarrhea, abdominal pain, chest pain, shortness a breath. Workup in the hospital included a chest x-ray which was negative for any acute cardiopulmonary disease. Head CT was negative for any acute intracranial hemorrhage, mass, acute infarct, it did show atrophy and chronic white matter changes. Initial labs showed a normal white blood cell count of 10.6, hemoglobin 11.3, INR was greater than 19, sodium 131, bicarb 20, creatinine 1.84, EGFR 26, blood sugars 126-163, lactic acid was normal at 1.1, proBNP 7008, TSH 1.15, lipase was normal at 16. UA was obtained and showed 1+ urine protein, 1+ urine blood, 2+ leukocytes, greater than 75 WBC, 2+ urine bacteria. Respiratory panel was negative for influenza A and B, RSV, COVID. Urine culture was obtained and pending. Last urine culture was reviewed and grew Klebsiella pneumoniae which was pansensitive. Initial EKG showed a flutter with RVR with a rate of 123, right bundle branch block, left anterior fascicular block, QTC 448. Patient was given 15 mg of Cardizem IV push while in the ED and a repeat EKG shown a flutter with RVR with a rate of 106, QTC 462. Patient was given a dose of vitamin K, digoxin, Lipitor, and Rocephin while in the ED. Subjective: patient denies any new complaints today. Labs and imaging reviewed. Review of Systems Review of Systems: All systems reviewed & are unremarkable except as noted in HPI and below Exam Narrative: General: In no acute distress, well nourished Cardiac: Normal S1 and S2. No murmur, gallops or friction rubs, peripheral pulses intact. Respiratory: Lungs clear to auscultation, no adventitious lung sounds, currently on room air Gastrointestinal: soft, non-distended, non-tender, normoactive bowel sounds. : Patterson catheter placed due to urinary retention, draining clear dark yellow urine Extremities: moves all extremities well, bilateral lower extremity edema Skin: excessively dry and flaky, yeast infection to gluteal folds and neck ecchymosis on right side Neuro: Alert and oriented x4 Objective Data Vital Signs Vital Signs: Vital Signs - 24 hr 10/23/24 12:00 10/23/24 16:00 10/23/24 20:00 Temperature 97.6 F Pulse Rate 90 70 64 Respiratory Rate 16 Blood Pressure 128/70 Pulse Oximetry 96 Oxygen Delivery Room Air 10/24/24 00:00 10/24/24 00:00 10/24/24 04:00 Temperature 97.6 F Pulse Rate 71 64 65 Respiratory Rate 16 Blood Pressure 92/57 L Pulse Oximetry 96 Oxygen Delivery Room Air Intake/Output Intake/Output: Intake & Output 10/21/24 10/22/24 10/23/24 10/24/24 23:59 23:59 23:59 23:59 Intake Total 602 1540 1976 1400 Output Total 825 1550 950 500 Balance -223 -10 1026 900 Meds/Results Medications: Active Medications Generic Name Dose Route Start Last Admin Trade Name Freq PRN Reason Stop Dose Admin Acetaminophen 650 mg 10/21/24 18:38 10/23/24 21:36 Acetaminophen 325 Mg Tablet PO 650 mg Q4H PRN Administration Mild Pain (1-3) or Fever Atorvastatin Calcium 20 mg 10/21/24 21:00 10/23/24 21:35 Atorvastatin 10 Mg Tablet PO 20 mg HS VALENTIN Administration Cyclobenzaprine HCl 10 mg 10/21/24 14:09 10/23/24 21:36 Cyclobenzaprine Hcl 10 Mg Tablet PO 10 mg Q12H PRN Administration Muscle Spasm, Neck pain Dextrose 12.5 gm 10/21/24 14:11 Dextrose 50% 25 Gm/50 Ml Syringe IV PUSH PRN PRN Hypoglycemia Protocol Doxycycline Hyclate 100 mg 10/23/24 21:00 10/23/24 21:35 Doxycycline Hyclate 100 Mg Tablet PO 100 mg Q12HR VALENTIN Administration Gabapentin 300 mg 10/21/24 22:00 10/24/24 05:53 Gabapentin 300 Mg Capsule PO 300 mg Q8HR VALENTIN Administration Glucagon 1 mg 10/21/24 14:11 Glucagon For Inj 1 Mg Vial IM PRN PRN Hypoglycemia Protocol Glucose 15 gm 10/21/24 14:11 Glucose Oral Gel 15 Gm Of Glucse In 37.5 Gm Tube PO PRN PRN Hypoglycemia Protocol Dextrose 1,000 mls @ 100 mls/hr 10/21/24 14:11 Dextrose 5% 1,000 Ml IVPB PRN PRN Hypoglycemia Protocol Ampicillin Sodium/Sulbactam Sodium 3 gm in 100 mls @ 200 mls/hr 10/22/24 13:10 10/24/24 06:25 Unasyn 3 Gm/Ns 100 Ml IVPB Infused Q6HR VALENTIN Infusion Sodium Chloride 1,000 mls @ 100 mls/hr 10/23/24 13:15 10/24/24 01:02 Normal Saline Iv IV CONT 100 mls/hr .Q10H VALENTIN Administration Insulin Glargine 10 units 10/23/24 21:00 10/23/24 21:35 Insulin Glargine (*Bkc) 1,000 Units/10 Ml Vial SUB-Q 10 units HS VALENTIN Administration Insulin Human Lispro 2 - 5 units 10/21/24 17:00 10/23/24 18:11 Insulin Human Lispro (*Bkc) 1,000 Units/10 Ml Vial SUB-Q 3 units TIDWM VALENTIN Administration Protocol Ondansetron HCl 4 mg 10/21/24 18:38 Ondansetron Inj 4 Mg/2 Ml Vial IV PUSH Q6H PRN Nausea And Vomiting Pantoprazole Sodium 40 mg 10/22/24 09:00 10/23/24 08:50 Pantoprazole 40 Mg Tablet PO 40 mg DAILY VALENTIN Administration Perflutren Lipid Microsphere 0 ml 10/23/24 09:26 Perflutren Lipid Microspheres 1.5 Ml Vial Diluted To 10 Ml Total Volume IV PUSH 10/26/24 09:26 ONCE PRN adequate visualization Protocol Polyethylene Glycol 17 gm 10/21/24 18:39 Polyethylene Glycol 3350 17 Gm Powd.Pack PO DAILY PRN constipation Senna 8.6 mg 10/21/24 18:39 Sennosides 8.6 Mg Tablet PO Q12H PRN constipation Tolnaftate 1 applic 10/22/24 21:00 10/23/24 21:48 Tolnaftate 1% Powder 45 Gm Btl TOPICAL Not Given Q12HR [facility] Warfarin Sodium 4 mg 10/23/24 17:00 10/23/24 18:10 Warfarin (*Pbkc) 2 Mg Tablet PO 4 mg DAILY@1700 [facility] Administration Radiology Results: ITS Impressions Chest X-Ray 10/21/24 10:07 IMPRESSION: 1: NO ACUTE CARDIOPULMONARY DISEASE. Head CT 10/21/24 10:07 Impression: No intracranial hemorrhage, mass, or acute infarct. Atrophy and chronic white matter changes, as above. Face CT 10/23/24 15:14 IMPRESSION: 1. Right-sided parotiditis. 2. Dental disease. Labs Labs: Laboratory Results - last 24 hr 10/23/24 10/23/24 10/23/24 08:34 12:23 16:37 WBC RBC Hgb Hct MCV MCH MCHC RDW Plt Count MPV Immature Gran % (Auto) Neut % (Auto) Lymph % (Auto) [place] % (Auto) Eos % (Auto) Baso % (Auto) Lymph # (Auto) [place] # (Auto) Eos # (Auto) Baso # (Auto) Abs Immat Gran (auto) Absolute Neuts (auto) Absolute Nucleated RBC Neutrophils % (Manual) Band Neutrophils % Lymphocytes % (Manual) Monocytes % (Manual) Eosinophils % (Manual) Basophils % (Manual) Nucleated RBC % Abs Neuts (Manual) Abs Lymphs (Manual) Abs Monocytes (Manual) Absolute Eos (Manual) Abs Basophils (Manual) Platelet Estimate Schistocytes PT INR Sodium Potassium Chloride Carbon Dioxide Anion Gap BUN Creatinine Estim Creat Clear Calc Estimated GFR Glucose POC Capillary Glucose 191 H 242 H 276 H Calculated Osmolality Calcium Total Bilirubin AST ALT Alkaline Phosphatase Total Protein Albumin 10/23/24 10/24/24 10/24/24 21:29 05:07 07:58 WBC 10.3 RBC 2.67 L Hgb 8.3 L Hct 26.1 L MCV 97.8 MCH 31.1 H MCHC 31.8 L RDW 14.4 Plt Count 218 MPV 11.4 Immature Gran % (Auto) Not Reportable Neut % (Auto) Not Reportable Lymph % (Auto) Not Reportable [place] % (Auto) Not Reportable Eos % (Auto) Not Reportable Baso % (Auto) Not Reportable Lymph # (Auto) Not Reportable [place] # (Auto) Not Reportable Eos # (Auto) Not Reportable Baso # (Auto) Not Reportable Abs Immat Gran (auto) Not Reportable Absolute Neuts (auto) Not Reportable Absolute Nucleated RBC Not Reportable Neutrophils % (Manual) 84 H Band Neutrophils % 0 Lymphocytes % (Manual) 13 L Monocytes % (Manual) 3 Eosinophils % (Manual) 0 L Basophils % (Manual) 0 Nucleated RBC % Not Reportable Abs Neuts (Manual) 8.65 H Abs Lymphs (Manual) 1.33 Abs Monocytes (Manual) 0.30 Absolute Eos (Manual) 0.00 L Abs Basophils (Manual) 0.00 Platelet Estimate Adequate Schistocytes Not Reportable PT 15.9 H D INR 1.5 Sodium 136 Potassium 4.6 Chloride 104 Carbon Dioxide 24 Anion Gap 8 BUN 41 H Creatinine 1.46 H Estim Creat Clear Calc 37 Estimated GFR 34 L Glucose 255 H POC Capillary Glucose 258 H 247 H Calculated Osmolality 301 H Calcium 8.0 L Total Bilirubin 0.3 AST < 10 L ALT 18 Alkaline Phosphatase 62 Total Protein 5.2 L Albumin 1.6 L Quality VTE Prophylaxis VTE prophylaxis: pharmacologic ordered
[2024-10-24 12:00] VITALS: PULSE 75
[2024-10-24 12:01] LABS: Glucose Point of Care 265 mg/dl (65-105)
[2024-10-24] MEDS: INSULIN HUMAN LISPRO (*BKC) 1,000 UNITS/10 ML VIAL SUB-Q ×2 (12:08→18:10)
[2024-10-24] MEDS: DOXYCYCLINE HYCLATE 100 MG TABLET PO ×2 (12:16→20:00)
[2024-10-24] MEDS: PANTOPRAZOLE 40 MG TABLET PO (12:22)
[2024-10-24 16:00] VITALS: BP 108/60; PULSE 68; PULSE 78; RESP 14; TEMP 36.9; O2SAT 97
[2024-10-24] MEDS: WARFARIN (*PBKC) 2 MG TABLET 6 MG PO (17:14)
[2024-10-24 17:18] LABS: Glucose Point of Care 210 mg/dl (65-105)
[2024-10-24 19:31] LABS: Glucose Point of Care 217 mg/dl (65-105)
[2024-10-24 20:00] VITALS: PULSE 83
[2024-10-24] MEDS: ATORVASTATIN 10 MG TABLET 20 MG PO (20:00)
[2024-10-24] MEDS: INSULIN GLARGINE (*BKC) 1,000 UNITS/10 ML VIAL 18 UNITS SUB-Q (20:01)
[2024-10-24] MEDS: TOLNAFTATE 1% POWDER 45 GM BTL 1 APPLIC TOPICAL (20:02)
[2024-10-25] VITALS: BP 118/58; PULSE 79; PULSE 85; RESP 16; TEMP 36.8; O2SAT 98
[2024-10-25 04:00] VITALS: PULSE 76
[2024-10-25] MEDS: GABAPENTIN 300 MG CAPSULE PO ×3 (05:50→21:20)
[2024-10-25] MEDS: AMPICILLIN SULB 3 GM/NS 100 ML 3 GM/100 ML VIAL IVPB ×4 (05:51→23:13)
[2024-10-25 08:00] VITALS: BP 126/78; PULSE 78; RESP 14; TEMP 36.4; O2SAT 95
[2024-10-25 08:15] LABS: Glucose Point of Care 105 mg/dl (65-105)
--- NOTE | 2024-10-25 09:36 | P.PNIM_ITS ---
Progress Note: A&P Assessment and Plan (1) UTI (urinary tract infection): Code(s): N39.0 - Urinary tract infection, site not specified Status: Acute Assessment and Plan: * UA showed 1+ urine protein, 1+ urine blood, 2+ leukocytes, greater than 75 urine WBC, 2+ bacteria * urine culture obtained and pending * previous urine culture from 09/19/2024 showed Klebsiella pneumoniae which was pansensitive * Rocephin changed to Unasyn to cover for abscessed tooth and UTI. antibiotic choice was discussed with Infectious Disease pharmacist 10/23 * Urine culture showing Klebsiella pneumoniae on preliminary read * continue with Unasyn 10/24 * urine culture showing Klebsiella pneumoniae on final read which is pansensitive * continue Unasyn 10/24 * No change to current treatment plan (2) TATUM (acute kidney injury): Code(s): N17.9 - Acute kidney failure, unspecified Status: Resolved Assessment and Plan: * initial creatinine 1.84, EGFR 26 * baseline creatinine 0.96-1.0, baseline EGFR 53-56 * continue to hold Lisinopril and Lasix * hold nephrotoxic medication and also avoid testing with contrast 10/23 * creatinine 1.25, EGFR 41 * continue to trend * continue to hold lisinopril and Lasix 10/24 * creatinine 1.46, EGFR 34 * continue to hold lisinopril and Lasix * continue to trend 10/25 * Creatinine 1.52, EGFR 33 * Continue to hold lisinopril and Lasix * Continue to trend (3) Abscessed tooth: Code(s): K04.7 - Periapical abscess without sinus Status: Acute Assessment and Plan: * swelling noted to right side of face mostly cheek and sinus * will obtain echocardiogram * will also get CT of facial bones with contrast, premedicate due to contrast allergy * patient started on Unasyn and doxycycline, antibiotic choice was discussed with Infectious Disease pharmacy 10/23 * CT of the facial bones with contrast, results pending * continue Unasyn and doxycycline * will need echo cardiogram today to rule out endocarditis 10/24 * echo was negative for any vegetation, EF was 65-70 %, mild pulmonary hypertension * face CT showed right-sided peritonitis and extensive dental disease including tooth 2 which is broken with periapical lucencies, tooth 3 showing restorative with root canal, teeth 4 and 5 are broken, tooth 14 is broken with periapical lucencies. There is asymmetric fat stranding around the right parotid gland consistent with parotiditis. * Continue Unasyn and doxycycline-- she will likely require IV Unasyn for 7 days before being transitioned to oral antibiotic * she will need to follow up with a dentist as soon as possible upon discharge 10/24 * no change to current treatment plan (4) Urinary retention: Code(s): R33.9 - Retention of urine, unspecified Status: Acute Assessment and Plan: * nursing reported greater than 950 mL of urine on bladder scan * Patterson catheter placed for urinary retention * was noted to have yeast when inserting urinary catheter * will treat with 150 mg Diflucan 10/23 * no change to current treatment plan (5) Supratherapeutic INR: Code(s): R79.1 - Abnormal coagulation profile Status: Acute Assessment and Plan: likely secondary to dehydration and acute kidney injury * initial INR greater than 19 on admission * patient was given 2 doses of vitamin K 10/23 * INR 1.1 10/24 * INR 1.5 * will increase Coumadin to 6 mg tonight * continue to trend 10/25 * resolved (6) DVT (deep venous thrombosis): Qualifiers: Affected thrombotic vein of extremity: tibial Chronicity: acute DVT location: lower extremity Laterality: right Qualified Code(s): I82.441 - Acute embolism and thrombosis of right tibial vein Code(s): I82.409 - Acute embolism and thrombosis of unspecified deep veins of unspecified lower extremity Status: Acute Assessment and Plan: * INR currently 1.3 * will start 2 mg of Coumadin tonight * continue to trend * INR target range 2 to 3 10/23 * INR 1.1 * will increase Coumadin to 4 mg tonight * continue to trend 10/24 * INR 1.5 * will increase Coumadin to 6 mg tonight * continue to trend 10/25 * INR 2.7 * will decrease Coumadin to 5 mg tonight * continue to trend (7) Type 2 diabetes mellitus without complications: Qualifiers: Diabetes mellitus terminal supervisor insulin use: without shelter use Qualified Code(s): E11.9 - Type 2 diabetes mellitus without complications Code(s): E11.9 - Type 2 diabetes mellitus without complications Status: Chronic Assessment and Plan: * Blood sugars ranging 120-163 * Hgb A1C 6.6 on 10/01/2024 * Accu checks AC/HS * low-dose SSI ordered * hypoglycemic protocol in place * Diabetic diet ordered * continue to hold metformin and pioglitazone 10/23 * blood sugars ranging 191-242 * Lantus 18 units ordered for tonight 10/25 * will increase Lantus to 22 units * blood sugars ranging 144-265 (8) GERD without esophagitis: Code(s): K21.9 - Gastro-esophageal reflux disease without esophagitis Status: Acute Assessment and Plan: * Protonix started 10/23 * no change to current treatment plan (9) Hyperlipidemia: Qualifiers: Hyperlipidemia type: mixed hyperlipidemia Qualified Code(s): E78.2 - Mixed hyperlipidemia Code(s): E78.5 - Hyperlipidemia, unspecified Status: Acute Assessment and Plan: * continue atorvastatin 10/23 * no change to current treatment plan (10) Essential (primary) hypertension: Code(s): I10 - Essential (primary) hypertension Status: Chronic Assessment and Plan: * blood pressure ranging 95/68 to 105/54 * lisinopril is on hold due to acute kidney injury and hypotension 10/23 * continue to hold lisinopril due to TATUM * blood pressure is improving, 108/52 to 120/54 10/24 * continue to hold lisinopril due to TATUM * blood pressures are still well controlled 10/25 * no change to current treatment plan (11) Hyponatremia: Code(s): E87.1 - Hypo-osmolality and hyponatremia Status: Acute Assessment and Plan: * sodium 121 * normal saline started at 100 mL/hour for hydration 10/24 * discontinue IV fluids * sodium corrected to 136 * encourage p.o. intake 10/25 * Resolved (12) Weakness: Code(s): R53.1 - Weakness Status: Acute Assessment and Plan: 10/25 * PT and OT ordered (13) Bilateral knee pain: Code(s): M25.561 - Pain in right knee; M25.562 - Pain in left knee Status: Acute Assessment and Plan: * Bilateral knee x-rays showing severe osteoarthritis * can take Tylenol for pain Time Spent With Patient Time with patient: 25 - 35 minutes Subjective Date/time seen: 10/25/24 09:36 Interval history: Interval history: This is an 79-year-old female with a significant past medical history of h ypertension, diabetes, rheumatoid arthritis, chronic kidney disease, DVT on Coumadin, diastolic CHF who presented to the hospital with complaints of shortness of breath/dyspnea. patient states that when she was at [facility] they were getting her up out of the bed yesterday with a Karina lift and she became unresponsive. She states she has not been feeling well for the last few days and has not been eating or drinking. She also reported about 1 week ago she had a broken tooth that led to an abscess. On exam today her right side of her face is swollen down to her cheek. She states her pain is well controlled. She denies any fever, chills, nausea, vomiting, diarrhea, abdominal pain, chest pain, shortness a breath. Workup in the hospital included a chest x-ray which was negative for any acute cardiopulmonary disease. Head CT was negative for any acute intracranial hemorrhage, mass, acute infarct, it did show atrophy and chronic white matter changes. Initial labs showed a normal white blood cell count of 10.6, hemoglobin 11.3, INR was greater than 19, sodium 131, bicarb 20, creatinine 1.84, EGFR 26, blood sugars 126-163, lactic acid was normal at 1.1, proBNP 7008, TSH 1.15, lipase was normal at 16. UA was obtained and showed 1+ urine protein, 1+ urine blood, 2+ leukocytes, greater than 75 WBC, 2+ urine bacteria. Respiratory panel was negative for influenza A and B, RSV, COVID. Urine culture was obtained and pending. Last urine culture was reviewed and grew Klebsiella pneumoniae which was pansensitive. Initial EKG showed a flutter with RVR with a rate of 123, right bundle branch block, left anterior fascicular block, QTC 448. Patient was given 15 mg of Cardizem IV push while in the ED and a repeat EKG shown a flutter with RVR with a rate of 106, QTC 462. Patient was given a dose of vitamin K, digoxin, Lipitor, and Rocephin while in the ED. Subjective: Patient requesting x-rays of both knees today. She reports pain from her knees down. She denies injury to either knee However she has noticed weakness in both knees even prior to this hospitalization. labs reviewed. Review of Systems Review of Systems: All systems reviewed & are unremarkable except as noted in HPI and below Exam Narrative: General: In no acute distress, well nourished Cardiac: Normal S1 and S2. No murmur, gallops or friction rubs, peripheral pulses intact. Respiratory: Lungs clear to auscultation, no adventitious lung sounds, currently on room air Gastrointestinal: soft, non-distended, non-tender, normoactive bowel sounds. : Patterson catheter placed due to urinary retention, draining clear yellow urine Extremities: moves all extremities well, bilateral lower extremity edema, reporting pain in bilateral knees today Skin: excessively dry and flaky, yeast infection to gluteal folds and neck ecchymosis on right side Neuro: Alert and oriented x4 Objective Data Vital Signs Vital Signs: Vital Signs - 24 hr 10/24/24 12:00 10/24/24 16:00 10/24/24 16:00 Temperature 98.5 F Pulse Rate 75 78 68 Respiratory Rate 14 Blood Pressure 108/60 Pulse Oximetry 97 Oxygen Delivery Room Air 10/24/24 20:00 10/25/24 00:00 10/25/24 00:00 Temperature 98.3 F Pulse Rate 83 79 85 Respiratory Rate 16 Blood Pressure 118/58 L Pulse Oximetry 98 Oxygen Delivery Room Air 10/25/24 04:00 10/25/24 08:00 Temperature 97.5 F L Pulse Rate 76 78 Respiratory Rate 14 Blood Pressure 126/78 Pulse Oximetry 95 Oxygen Delivery Room Air Intake/Output Intake/Output: Intake & Output 10/22/24 10/23/24 10/24/24 10/25/24 23:59 23:59 23:59 23:59 Intake Total 1540 1976 3675 450 Output Total 1550 545 335 4763 Balance -10 1026 3175 -700 Meds/Results Medications: Active Medications Generic Name Dose Route Start Last Admin Trade Name Freq PRN Reason Stop Dose Admin Acetaminophen 650 mg 10/21/24 18:38 10/23/24 21:36 Acetaminophen 325 Mg Tablet PO 650 mg Q4H PRN Administration Mild Pain (1-3) or Fever Atorvastatin Calcium 20 mg 10/21/24 21:00 10/24/24 20:00 Atorvastatin 10 Mg Tablet PO 20 mg HS VALENTIN Administration Cyclobenzaprine HCl 10 mg 10/21/24 14:09 10/23/24 21:36 Cyclobenzaprine Hcl 10 Mg Tablet PO 10 mg Q12H PRN Administration Muscle Spasm, Neck pain Dextrose 12.5 gm 10/21/24 14:11 Dextrose 50% 25 Gm/50 Ml Syringe IV PUSH PRN PRN Hypoglycemia Protocol Doxycycline Hyclate 100 mg 10/23/24 21:00 10/24/24 20:00 Doxycycline Hyclate 100 Mg Tablet PO 100 mg Q12HR VALENTIN Administration Gabapentin 300 mg 10/21/24 22:00 10/25/24 05:50 Gabapentin 300 Mg Capsule PO 300 mg Q8HR VALENTIN Administration Glucagon 1 mg 10/21/24 14:11 Glucagon For Inj 1 Mg Vial IM PRN PRN Hypoglycemia Protocol Glucose 15 gm 10/21/24 14:11 Glucose Oral Gel 15 Gm Of Glucse In 37.5 Gm Tube PO PRN PRN Hypoglycemia Protocol Dextrose 1,000 mls @ 100 mls/hr 10/21/24 14:11 Dextrose 5% 1,000 Ml IVPB PRN PRN Hypoglycemia Protocol Ampicillin Sodium/Sulbactam Sodium 3 gm in 100 mls @ 200 mls/hr 10/22/24 13:10 10/25/24 05:51 Unasyn 3 Gm/Ns 100 Ml IVPB 100 mls/hr Q6HR VALENTIN Administration Insulin Glargine 18 units 10/24/24 21:00 10/24/24 20:01 Insulin Glargine (*Bkc) 1,000 Units/10 Ml Vial SUB-Q 18 units HS VALENTIN Administration Insulin Human Lispro 2 - 5 units 10/21/24 17:00 10/24/24 18:10 Insulin Human Lispro (*Bkc) 1,000 Units/10 Ml Vial SUB-Q 2 units TIDWM VALENTIN Administration Protocol Ondansetron HCl 4 mg 10/21/24 18:38 Ondansetron Inj 4 Mg/2 Ml Vial IV PUSH Q6H PRN Nausea And Vomiting Pantoprazole Sodium 40 mg 10/22/24 09:00 10/24/24 12:22 Pantoprazole 40 Mg Tablet PO 40 mg DAILY VALENTIN Administration Perflutren Lipid Microsphere 0 ml 10/23/24 09:26 Perflutren Lipid Microspheres 1.5 Ml Vial Diluted To 10 Ml Total Volume IV PUSH 10/26/24 09:26 ONCE PRN adequate visualization Protocol Polyethylene Glycol 17 gm 10/21/24 18:39 Polyethylene Glycol 3350 17 Gm Powd.Pack PO DAILY PRN constipation Senna 8.6 mg 10/21/24 18:39 Sennosides 8.6 Mg Tablet PO Q12H PRN constipation Tolnaftate 1 applic 10/22/24 21:00 10/24/24 20:02 Tolnaftate 1% Powder 45 Gm Btl TOPICAL 1 applic Q12HR VALENTIN Administration Warfarin Sodium 6 mg 10/24/24 17:00 10/24/24 17:14 Warfarin (*Pbkc) 2 Mg Tablet PO 6 mg DAILY@1700 [facility] Administration Radiology Results: ITS Impressions Chest X-Ray 10/21/24 10:07 IMPRESSION: 1: NO ACUTE CARDIOPULMONARY DISEASE. Head CT 10/21/24 10:07 Impression: No intracranial hemorrhage, mass, or acute infarct. Atrophy and chronic white matter changes, as above. Face CT 10/23/24 15:14 IMPRESSION: 1. Right-sided parotiditis. 2. Dental disease. Labs Labs: Laboratory Results - last 24 hr 10/24/24 10/24/24 10/24/24 11:56 17:12 19:26 POC Capillary Glucose 265 H 210 H 217 H 10/25/24 08:08 POC Capillary Glucose 105 Quality VTE Prophylaxis VTE prophylaxis: pharmacologic ordered
[2024-10-25] MEDS: DOXYCYCLINE HYCLATE 100 MG TABLET PO ×2 (10:05→20:44)
[2024-10-25] MEDS: PANTOPRAZOLE 40 MG TABLET PO (10:05)
[2024-10-25] MEDS: TOLNAFTATE 1% POWDER 45 GM BTL 1 APPLIC TOPICAL ×2 (10:06→20:50)
[2024-10-25 12:04] LABS: Glucose Point of Care 144 mg/dl (65-105)
[2024-10-25 12:59] LABS: Hematocrit 30.7 % (35.0-42.0); Hemoglobin 9.4 g/dL (11.7-13.8); Mean Corpuscular HGB Conc 30.6 g/dL (32-36); Mean Corpuscular Hemoglobin 30.6 pg (27.0-31.0); Mean Platelet Volume 11.3 fl (9.2-11.8); Platelet Count Result 269 K/mm3 (150-420); Red Blood Count 3.07 M/mm3 (4.20-5.40); Red Cell Distribution Width 14.6 % (11.6-14.4); White Blood Count 11.1 K/mm3 (4.8-10.8)
[2024-10-25 13:02] LABS: INR 2.7; Prothrombin Time 27.3 Seconds (9.50-12.1)
[2024-10-25 13:49] LABS: Alanine Aminotransferase 23 U/L (14-59); Albumin Level 1.9 g/dL (3.4-5.0); Alkaline Phosphatase 73 U/L (46-116); Anion Gap 11 mmol/L (4-12); Aspartate Amino Transferase 28 U/L (15-37); Bilirubin,Total 0.3 mg/dL (0.00-1.00); Blood Urea Nitrogen 35 mg/dL (7-18); Calcium 8.1 mg/dL (8.5-10.1); Carbon Dioxide 24 mmol/L (21-32); Chloride 106 mmol/L (98-108); Estimated CRCL calculation 36 ml/min; Estimated Glomerular Filt Rate 33; Glucose 133 mg/dL (70-99); Osmolality Calculated 302 mOsm/kg (285-295); Potassium 4.4 mmol/L (3.5-5.1); Sodium 141 mmol/L (136-145); Total Protein 5.6 g/dL (6.4-8.2)
[2024-10-25 16:00] VITALS: BP 165/50; PULSE 68; RESP 14; TEMP 36.8; O2SAT 97
[2024-10-25 17:17] LABS: Glucose Point of Care 174 mg/dl (65-105)
[2024-10-25] MEDS: WARFARIN (*PBKC) 5 MG TABLET PO (18:11)
[2024-10-25] MEDS: ATORVASTATIN 10 MG TABLET 20 MG PO (20:44)
[2024-10-25] MEDS: INSULIN GLARGINE (*BKC) 1,000 UNITS/10 ML VIAL 22 UNITS SUB-Q (20:47)
[2024-10-25 20:52] LABS: Glucose Point of Care 167 mg/dl (65-105)
[2024-10-26] VITALS: BP 97/41; PULSE 72; RESP 17; TEMP 36; O2SAT 96
[2024-10-26] MEDS: AMPICILLIN SULB 3 GM/NS 100 ML 3 GM/100 ML VIAL IVPB ×4 (05:09→23:47)
[2024-10-26] MEDS: GABAPENTIN 300 MG CAPSULE PO ×3 (05:09→21:05)
[2024-10-26 05:19] LABS: Band Neutrophils Percent 2 % (0-6); Eosinophils Absolute Manual 0.22 K/mm3 (0.02-0.50); Eosinophils Percent Manual 2 % (1-6); Lymphocytes Absolute Manual 3.21 K/mm3 (1.1-4.5); Lymphocytes Percent Manual 29 % (18-44); Monocytes Absolute Manual 0.44 K/mm3 (0.1-0.90); Monocytes Percent Manual 4 % (3-9); Neutrophils Absolute Manual 7.21 K/mm3 (1.7-7.2); Neutrophils Percent Manual 63 % (46-73); Platelet Estimate Adequate (Adequate); Schistocytes None Seen; Total Cells Counted 100
[2024-10-26 06:55] LABS: Hematocrit 27.5 % (35.0-42.0); Hemoglobin 8.8 g/dL (11.7-13.8); Mean Corpuscular Hemoglobin 31.1 pg (27.0-31.0); Mean Corpuscular Volume 97.2 fL (78.0-102.0); Mean Platelet Volume 10.7 fl (9.2-11.8); Platelet Count Result 237 K/mm3 (150-420); Red Blood Count 2.83 M/mm3 (4.20-5.40); Red Cell Distribution Width 14.6 % (11.6-14.4); White Blood Count 10.3 K/mm3 (4.8-10.8)
[2024-10-26 07:12] LABS: Alanine Aminotransferase 29 U/L (14-59); Albumin Level 1.7 g/dL (3.4-5.0); Alkaline Phosphatase 55 U/L (46-116); Anion Gap 9 mmol/L (4-12); Aspartate Amino Transferase 23 U/L (15-37); Bilirubin,Total 0.3 mg/dL (0.00-1.00); Blood Urea Nitrogen 33 mg/dL (7-18); Calcium 7.7 mg/dL (8.5-10.1); Carbon Dioxide 24 mmol/L (21-32); Chloride 108 mmol/L (98-108); Estimated CRCL calculation 38 ml/min; Estimated Glomerular Filt Rate 36; Glucose 107 mg/dL (70-99); INR 3.4; Osmolality Calculated 299 mOsm/kg (285-295); Potassium 4.1 mmol/L (3.5-5.1); Prothrombin Time 33.5 Seconds (9.50-12.1); Sodium 141 mmol/L (136-145); Total Protein 5.2 g/dL (6.4-8.2)
[2024-10-26 07:19] LABS: Band Neutrophils Percent 0 % (0-6); Eosinophils Percent Manual 2 % (1-6); Lymphocytes Absolute Manual 4.22 K/mm3 (1.1-4.5); Lymphocytes Percent Manual 41 % (18-44); Monocytes Absolute Manual 1.54 K/mm3 (0.1-0.90); Monocytes Percent Manual 15 % (3-9); Neutrophils Absolute Manual 4.32 K/mm3 (1.7-7.2); Neutrophils Percent Manual 42 % (46-73); Platelet Estimate Adequate (Adequate); Total Cells Counted 100
[2024-10-26 08:00] VITALS: BP 110/62; PULSE 74; RESP 18; TEMP 36.4; O2SAT 96
--- NOTE | 2024-10-26 09:35 | P.PNIM_ITS ---
Progress Note: A&P Assessment and Plan (1) UTI (urinary tract infection): Code(s): N39.0 - Urinary tract infection, site not specified Status: Acute Assessment and Plan: * UA showed 1+ urine protein, 1+ urine blood, 2+ leukocytes, greater than 75 urine WBC, 2+ bacteria * urine culture obtained and pending * previous urine culture from 09/19/2024 showed Klebsiella pneumoniae which was pansensitive * Rocephin changed to Unasyn to cover for abscessed tooth and UTI. antibiotic choice was discussed with Infectious Disease pharmacist 10/23 * Urine culture showing Klebsiella pneumoniae on preliminary read * continue with Unasyn 10/24 * urine culture showing Klebsiella pneumoniae on final read which is pansensitive * continue Unasyn 10/24 * No change to current treatment plan (2) TATUM (acute kidney injury): Code(s): N17.9 - Acute kidney failure, unspecified Status: Resolved Assessment and Plan: * initial creatinine 1.84, EGFR 26 * baseline creatinine 0.96-1.0, baseline EGFR 53-56 * continue to hold Lisinopril and Lasix * hold nephrotoxic medication and also avoid testing with contrast 10/23 * creatinine 1.25, EGFR 41 * continue to trend * continue to hold lisinopril and Lasix 10/24 * creatinine 1.46, EGFR 34 * continue to hold lisinopril and Lasix * continue to trend 10/25 * Creatinine 1.52, EGFR 33 * Continue to hold lisinopril and Lasix * Continue to trend 10/26 * Creatinine 1.40, EGFR 36 * Continue to hold lisinopril and Lasix * Continue to trend (3) Abscessed tooth: Code(s): K04.7 - Periapical abscess without sinus Status: Acute Assessment and Plan: * swelling noted to right side of face mostly cheek and sinus * will obtain echocardiogram * will also get CT of facial bones with contrast, premedicate due to contrast allergy * patient started on Unasyn and doxycycline, antibiotic choice was discussed with Infectious Disease pharmacy 10/23 * CT of the facial bones with contrast, results pending * continue Unasyn and doxycycline * will need echo cardiogram today to rule out endocarditis 10/24 * echo was negative for any vegetation, EF was 65-70 %, mild pulmonary hypertension * face CT showed right-sided peritonitis and extensive dental disease including tooth 2 which is broken with periapical lucencies, tooth 3 showing restorative with root canal, teeth 4 and 5 are broken, tooth 14 is broken with periapical lucencies. There is asymmetric fat stranding around the right parotid gland consistent with parotiditis. * Continue Unasyn and doxycycline-- she will likely require IV Unasyn for 7 days before being transitioned to oral antibiotic * she will need to follow up with a dentist as soon as possible upon discharge 10/25 * no change to current treatment plan (4) Acute parotitis: Code(s): K11.21 - Acute sialoadenitis Status: Acute Assessment and Plan: see above plan of care (5) Urinary retention: Code(s): R33.9 - Retention of urine, unspecified Status: Acute Assessment and Plan: * nursing reported greater than 950 mL of urine on bladder scan * Patterson catheter placed for urinary retention * was noted to have yeast when inserting urinary catheter * will treat with 150 mg Diflucan 10/23 * no change to current treatment plan 10/24 * will start Flomax today * continue MiraLax for constipation that may be leading to urinary retention (6) Supratherapeutic INR: Code(s): R79.1 - Abnormal coagulation profile Status: Acute Assessment and Plan: likely secondary to dehydration and acute kidney injury * initial INR greater than 19 on admission * patient was given 2 doses of vitamin K 10/23 * INR 1.1 10/24 * INR 1.5 * will increase Coumadin to 6 mg tonight * continue to trend 10/25 * resolved (7) DVT (deep venous thrombosis): Qualifiers: Affected thrombotic vein of extremity: tibial Chronicity: acute DVT location: lower extremity Laterality: right Qualified Code(s): I82.441 - Acute embolism and thrombosis of right tibial vein Code(s): I82.409 - Acute embolism and thrombosis of unspecified deep veins of unspecified lower extremity Status: Acute Assessment and Plan: * INR currently 1.3 * will start 2 mg of Coumadin tonight * continue to trend * INR target range 2 to 3 10/23 * INR 1.1 * will increase Coumadin to 4 mg tonight * continue to trend 10/24 * INR 1.5 * will increase Coumadin to 6 mg tonight * continue to trend 10/25 * INR 2.7 * will decrease Coumadin to 5 mg tonight * continue to trend 10/26 * INR 3.4 * decrease Coumadin to 4 mg tonight * Continue to trend (8) Type 2 diabetes mellitus without complications: Qualifiers: Diabetes mellitus rn long term care insulin use: without rn long term care use Qualified Code(s): E11.9 - Type 2 diabetes mellitus without complications Code(s): E11.9 - Type 2 diabetes mellitus without complications Status: Chronic Assessment and Plan: * Blood sugars ranging 120-163 * Hgb A1C 6.6 on 10/01/2024 * Accu checks AC/HS * low-dose SSI ordered * hypoglycemic protocol in place * Diabetic diet ordered * continue to hold metformin and pioglitazone 10/23 * blood sugars ranging 191-242 * Lantus 18 units ordered for tonight 10/25 * will increase Lantus to 22 units * blood sugars ranging 144-265 10/26 * Blood sugars ranging 107-167 * No change to current treatment plan (9) GERD without esophagitis: Code(s): K21.9 - Gastro-esophageal reflux disease without esophagitis Status: Acute Assessment and Plan: * Protonix started 10/23 * no change to current treatment plan (10) Hyperlipidemia: Qualifiers: Hyperlipidemia type: mixed hyperlipidemia Qualified Code(s): E78.2 - Mixed hyperlipidemia Code(s): E78.5 - Hyperlipidemia, unspecified Status: Acute Assessment and Plan: * continue atorvastatin 10/23 * no change to current treatment plan (11) Essential (primary) hypertension: Code(s): I10 - Essential (primary) hypertension Status: Chronic Assessment and Plan: * blood pressure ranging 95/68 to 105/54 * lisinopril is on hold due to acute kidney injury and hypotension 10/23 * continue to hold lisinopril due to TATUM * blood pressure is improving, 108/52 to 120/54 10/24 * continue to hold lisinopril due to TATUM * blood pressures are still well controlled 10/25 * no change to current treatment plan (12) Hyponatremia: Code(s): E87.1 - Hypo-osmolality and hyponatremia Status: Acute Assessment and Plan: * sodium 121 * normal saline started at 100 mL/hour for hydration 10/24 * discontinue IV fluids * sodium corrected to 136 * encourage p.o. intake 10/25 * Resolved (13) Weakness: Code(s): R53.1 - Weakness Status: Acute Assessment and Plan: 10/25 * PT and OT ordered 10/26 * No change to current treatment plan (14) Bilateral knee pain: Code(s): M25.561 - Pain in right knee; M25.562 - Pain in left knee Status: Acute Assessment and Plan: * Bilateral knee x-rays showing severe osteoarthritis * can take Tylenol for pain 10/26 * Continue PT and OT * Will need referral to orthopedic doctor upon discharge Time Spent With Patient Time with patient: 25 - 35 minutes Subjective Date/time seen: 10/26/24 09:35 Interval history: Interval history: This is an 79-year-old female with a significant past medical history of hypertension, diabetes, rheumatoid arthritis, chronic kidney disease, DVT on Coumadin, diastolic CHF who presented to the hospital with complaints of shortness of breath/dyspnea. patient states that when she was at [facility] and rehab they were getting her up out of the bed yesterday with a Karina lift and she became unresponsive. She states she has not been feeling well for the last few days and has not been eating or drinking. She also reported about 1 week ago she had a broken tooth that led to an abscess. On exam today her right side of her face is swollen down to her cheek. She states her pain is well controlled. She denies any fever, chills, nausea, vomiting, diarrhea, abdominal pain, chest pain, shortness a breath. Workup in the hospital included a chest x-ray which was negative for any acute cardiopulmonary disease. Head CT was negative for any acute intracranial hemorrhage, mass, acute infarct, it did show atrophy and chronic white matter changes. Initial labs showed a normal white blood cell count of 10.6, hemoglobin 11.3, INR was greater than 19, sodium 131, bicarb 20, creatinine 1.84, EGFR 26, blood sugars 126-163, lactic acid was normal at 1.1, proBNP 7008, TSH 1.15, lipase was normal at 16. UA was obtained and showed 1+ urine protein, 1+ urine blood, 2+ leukocytes, greater than 75 WBC, 2+ urine bacteria. Respiratory panel was negative for influenza A and B, RSV, COVID. Urine culture was obtained and pending. Last urine culture was reviewed and grew Klebsiella pneumoniae which was pansensitive. Initial EKG showed a flutter with RVR with a rate of 123, right bundle branch block, left anterior fascicular block, QTC 448. Patient was given 15 mg of Cardizem IV push while in the ED and a repeat EKG shown a flutter with RVR with a rate of 106, QTC 462. Patient was given a dose of vitamin K, digoxin, Lipitor, and Rocephin while in the ED. Subjective: spoke to patient about her severe osteoarthritis in both medial compartments of both knees. Patient has been a total lift to the chair today as she was unable to pull herself up or bear weight on either leg. Labs reviewed Review of Systems Review of Systems: All systems reviewed & are unremarkable except as noted in HPI and below Exam Narrative: General: In no acute distress, well nourished Cardiac: Normal S1 and S2. No murmur, gallops or friction rubs, peripheral pulses intact. Respiratory: Lungs clear to auscultation, no adventitious lung sounds, currently on room air Gastrointestinal: soft, non-distended, non-tender, normoactive bowel sounds. : Patterson catheter placed due to urinary retention, draining clear yellow urine Extremities: moves all extremities well, bilateral lower extremity edema, reporting pain in bilateral knees today Skin: excessively dry and flaky, yeast infection to gluteal folds and neck ecchymosis on right side Neuro: Alert and oriented x4 Objective Data Vital Signs Vital Signs: Vital Signs - 24 hr 10/25/24 16:00 10/26/24 00:00 Temperature 98.2 F 96.8 F L Pulse Rate 68 72 Respiratory Rate 14 17 Blood Pressure 165/50 H 97/41 L Pulse Oximetry 97 96 Oxygen Delivery Room Air Room Air Intake/Output Intake/Output: Intake & Output 10/23/24 10/24/24 10/25/24 10/26/24 23:59 23:59 23:59 23:59 Intake Total 1976 3675 2350 220 Output Total 793 287 2183 700 Balance 1026 3175 150 -480 Meds/Results Medications: Active Medications Generic Name Dose Route Start Last Admin Trade Name Freq PRN Reason Stop Dose Admin Acetaminophen 650 mg 10/21/24 18:38 10/23/24 21:36 Acetaminophen 325 Mg Tablet PO 650 mg Q4H PRN Administration Mild Pain (1-3) or Fever Atorvastatin Calcium 20 mg 10/21/24 21:00 10/25/24 20:44 Atorvastatin 10 Mg Tablet PO 20 mg HS VALENTIN Administration Cyclobenzaprine HCl 10 mg 10/21/24 14:09 10/23/24 21:36 Cyclobenzaprine Hcl 10 Mg Tablet PO 10 mg Q12H PRN Administration Muscle Spasm, Neck pain Dextrose 12.5 gm 10/21/24 14:11 Dextrose 50% 25 Gm/50 Ml Syringe IV PUSH PRN PRN Hypoglycemia Protocol Doxycycline Hyclate 100 mg 10/23/24 21:00 10/25/24 20:44 Doxycycline Hyclate 100 Mg Tablet PO 100 mg Q12HR VALENTIN Administration Gabapentin 300 mg 10/21/24 22:00 10/26/24 05:09 Gabapentin 300 Mg Capsule PO 300 mg Q8HR VALENTIN Administration Glucagon 1 mg 10/21/24 14:11 Glucagon For Inj 1 Mg Vial IM PRN PRN Hypoglycemia Protocol Glucose 15 gm 10/21/24 14:11 Glucose Oral Gel 15 Gm Of Glucse In 37.5 Gm Tube PO PRN PRN Hypoglycemia Protocol Dextrose 1,000 mls @ 100 mls/hr 10/21/24 14:11 Dextrose 5% 1,000 Ml IVPB PRN PRN Hypoglycemia Protocol Ampicillin Sodium/Sulbactam Sodium 3 gm in 100 mls @ 200 mls/hr 10/22/24 13:10 10/26/24 05:40 Unasyn 3 Gm/Ns 100 Ml IVPB Infused Q6HR VALNETIN Infusion Insulin Glargine 22 units 10/25/24 21:00 10/25/24 20:47 Insulin Glargine (*Bkc) 1,000 Units/10 Ml Vial SUB-Q 22 units HS VALENTIN Administration Insulin Human Lispro 2 - 5 units 10/21/24 17:00 10/25/24 17:32 Insulin Human Lispro (*Bkc) 1,000 Units/10 Ml Vial SUB-Q Not Given TIDWM [facility] Protocol Ondansetron HCl 4 mg 10/21/24 18:38 Ondansetron Inj 4 Mg/2 Ml Vial IV PUSH Q6H PRN Nausea And Vomiting Pantoprazole Sodium 40 mg 10/22/24 09:00 10/25/24 10:05 Pantoprazole 40 Mg Tablet PO 40 mg DAILY VALENTIN Administration Perflutren Lipid Microsphere 0 ml 10/23/24 09:26 Perflutren Lipid Microspheres 1.5 Ml Vial Diluted To 10 Ml Total Volume IV PUSH 10/26/24 09:26 ONCE PRN adequate visualization Protocol Polyethylene Glycol 17 gm 10/21/24 18:39 Polyethylene Glycol 3350 17 Gm Powd.Pack PO DAILY PRN constipation Senna 8.6 mg 10/21/24 18:39 Sennosides 8.6 Mg Tablet PO Q12H PRN constipation Tolnaftate 1 applic 10/22/24 21:00 10/25/24 20:50 Tolnaftate 1% Powder 45 Gm Btl TOPICAL 1 applic Q12HR VLAENTIN Administration Warfarin Sodium 5 mg 10/25/24 17:00 10/25/24 18:11 Warfarin (*Pbkc) 5 Mg Tablet PO 5 mg DAILY@1700 VALENTIN Administration Radiology Results: ITS Impressions Chest X-Ray 10/21/24 10:07 IMPRESSION: 1: NO ACUTE CARDIOPULMONARY DISEASE. Head CT 10/21/24 10:07 Impression: No intracranial hemorrhage, mass, or acute infarct. Atrophy and chronic white matter changes, as above. Face CT 10/23/24 15:14 IMPRESSION: 1. Right-sided parotiditis. 2. Dental disease. Knee X-Ray 10/25/24 14:00 IMPRESSION: 1. Severe right knee osteoarthritis. 2. Small right knee joint effusion. Labs Labs: Laboratory Results - last 24 hr 10/25/24 10/25/24 10/25/24 11:12 11:58 17:11 WBC 11.1 H RBC 3.07 L Hgb 9.4 L Hct 30.7 L MCV 100.0 MCH 30.6 MCHC 30.6 L RDW 14.6 H Plt Count 269 MPV 11.3 Immature Gran % (Auto) Not Reportable Neut % (Auto) Not Reportable Lymph % (Auto) Not Reportable [place] % (Auto) Not Reportable Eos % (Auto) Not Reportable Baso % (Auto) Not Reportable Lymph # (Auto) Not Reportable [place] # (Auto) Not Reportable Eos # (Auto) Not Reportable Baso # (Auto) Not Reportable Abs Immat Gran (auto) Not Reportable Absolute Neuts (auto) Not Reportable Absolute Nucleated RBC Not Reportable Total Counted 100 Neutrophils % (Manual) 63 Band Neutrophils % 2 Lymphocytes % (Manual) 29 Monocytes % (Manual) 4 Eosinophils % (Manual) 2 Nucleated RBC % Not Reportable Abs Neuts (Manual) 7.21 H Abs Lymphs (Manual) 3.21 Abs Monocytes (Manual) 0.44 Absolute Eos (Manual) 0.22 Platelet Estimate Adequate Schistocytes None seen PT 27.3 H D INR 2.7 Sodium 141 Potassium 4.4 Chloride 106 Carbon Dioxide 24 Anion Gap 11 BUN 35 H Creatinine 1.52 H Estim Creat Clear Calc 36 Estimated GFR 33 L Glucose 133 H POC Capillary Glucose 144 H 174 H Calculated Osmolality 302 H Calcium 8.1 L Total Bilirubin 0.3 AST 28 ALT 23 Alkaline Phosphatase 73 Total Protein 5.6 L Albumin 1.9 L 10/25/24 10/26/24 20:46 04:58 WBC 10.3 RBC 2.83 L Hgb 8.8 L Hct 27.5 L MCV 97.2 MCH 31.1 H MCHC 32.0 RDW 14.6 H Plt Count 237 MPV 10.7 Immature Gran % (Auto) Not Reportable Neut % (Auto) Not Reportable Lymph % (Auto) Not Reportable [place] % (Auto) Not Reportable Eos % (Auto) Not Reportable Baso % (Auto) Not Reportable Lymph # (Auto) Not Reportable [place] # (Auto) Not Reportable Eos # (Auto) Not Reportable Baso # (Auto) Not Reportable Abs Immat Gran (auto) Not Reportable Absolute Neuts (auto) Not Reportable Absolute Nucleated RBC Not Reportable Total Counted 100 Neutrophils % (Manual) 42 L Band Neutrophils % 0 Lymphocytes % (Manual) 41 Monocytes % (Manual) 15 H Eosinophils % (Manual) 2 Nucleated RBC % Not Reportable Abs Neuts (Manual) 4.32 Abs Lymphs (Manual) 4.22 Abs Monocytes (Manual) 1.54 H Absolute Eos (Manual) 0.20 Platelet Estimate Adequate Schistocytes Not Reportable PT 33.5 H D INR 3.4 Sodium 141 Potassium 4.1 Chloride 108 Carbon Dioxide 24 Anion Gap 9 BUN 33 H Creatinine 1.40 H Estim Creat Clear Calc 38 Estimated GFR 36 L Glucose 107 H POC Capillary Glucose 167 H Calculated Osmolality 299 H Calcium 7.7 L Total Bilirubin 0.3 AST 23 ALT 29 Alkaline Phosphatase 55 Total Protein 5.2 L Albumin 1.7 L Quality VTE Prophylaxis VTE prophylaxis: pharmacologic ordered
[2024-10-26] MEDS: TOLNAFTATE 1% POWDER 45 GM BTL 1 APPLIC TOPICAL ×2 (09:38→20:55)
[2024-10-26] MEDS: PANTOPRAZOLE 40 MG TABLET PO (09:38)
[2024-10-26] MEDS: DOXYCYCLINE HYCLATE 100 MG TABLET PO ×2 (09:38→20:57)
[2024-10-26 12:09] LABS: Glucose Point of Care 127 mg/dl (65-105)
[2024-10-26] MEDS: TAMSULOSIN HCL 0.4 MG CAPSULE PO (12:51)
[2024-10-26] MEDS: DICLOFENAC SODIUM 1% 100 GM GEL (*BKC) 1 APPLIC TOPICAL ×3 (12:52→20:55)
[2024-10-26 16:00] VITALS: BP 143/59; PULSE 72; RESP 20; TEMP 36.6; O2SAT 99
[2024-10-26 17:07] LABS: Glucose Point of Care 148 mg/dl (65-105)
[2024-10-26] MEDS: WARFARIN (*PBKC) 2 MG TABLET 4 MG PO (18:04)
[2024-10-26 20:00] VITALS: PULSE 72; RESP 20; O2SAT 99
[2024-10-26] MEDS: CYCLOBENZAPRINE HCL 10 MG TABLET PO (20:57)
[2024-10-26] MEDS: ATORVASTATIN 10 MG TABLET 20 MG PO (20:58)
[2024-10-26] MEDS: ACETAMINOPHEN 325 MG TABLET 650 MG PO (20:58)
[2024-10-26 21:00] LABS: Glucose Point of Care 173 mg/dl (65-105)
[2024-10-26] MEDS: INSULIN GLARGINE (*BKC) 1,000 UNITS/10 ML VIAL 22 UNITS SUB-Q (21:00)
[2024-10-27] VITALS: BP 117/64; PULSE 61; RESP 18; TEMP 36.6; O2SAT 96
[2024-10-27 04:58] LABS: Hematocrit 26.2 % (35.0-42.0); Hemoglobin 8.2 g/dL (11.7-13.8); Mean Corpuscular HGB Conc 31.3 g/dL (32-36); Mean Corpuscular Hemoglobin 30.9 pg (27.0-31.0); Mean Corpuscular Volume 98.9 fL (78.0-102.0); Mean Platelet Volume 10.6 fl (9.2-11.8); Platelet Count Result 227 K/mm3 (150-420); Red Blood Count 2.65 M/mm3 (4.20-5.40); Red Cell Distribution Width 14.7 % (11.6-14.4)
[2024-10-27] MEDS: AMPICILLIN SULB 3 GM/NS 100 ML 3 GM/100 ML VIAL IVPB ×2 (05:05→11:52)
[2024-10-27] MEDS: GABAPENTIN 300 MG CAPSULE PO (05:05)
[2024-10-27 05:18] LABS: Alanine Aminotransferase 54 U/L (14-59); Albumin Level 1.7 g/dL (3.4-5.0); Alkaline Phosphatase 52 U/L (46-116); Anion Gap 6 mmol/L (4-12); Aspartate Amino Transferase 41 U/L (15-37); Bilirubin,Total 0.2 mg/dL (0.00-1.00); Blood Urea Nitrogen 33 mg/dL (7-18); Calcium 7.7 mg/dL (8.5-10.1); Carbon Dioxide 28 mmol/L (21-32); Chloride 109 mmol/L (98-108); Estimated CRCL calculation 37 ml/min; Estimated Glomerular Filt Rate 35; Glucose 110 mg/dL (70-99); Osmolality Calculated 304 mOsm/kg (285-295); Sodium 143 mmol/L (136-145); Total Protein 4.8 g/dL (6.4-8.2)
[2024-10-27 05:20] LABS: INR 4.2
[2024-10-27 05:58] LABS: Band Neutrophils Percent 0 % (0-6); Basophils Percent Manual 0 % (0-1); Eosinophils Percent Manual 8 % (1-6); Lymphocytes Percent Manual 32 % (18-44); Monocytes Percent Manual 13 % (3-9); Neutrophils Percent Manual 47 % (46-73); Platelet Estimate Adequate (Adequate)
[2024-10-27 07:49] LABS: Glucose Point of Care 86 mg/dl (65-105)
[2024-10-27 08:00] VITALS: BP 124/48; PULSE 68; RESP 20; TEMP 36.6; O2SAT 97
[2024-10-27] MEDS: DICLOFENAC SODIUM 1% 100 GM GEL (*BKC) 1 APPLIC TOPICAL (08:36)
[2024-10-27] MEDS: polyethylene glycoL 3350 17 GM POWD.PACK PO (08:36)
[2024-10-27] MEDS: DOXYCYCLINE HYCLATE 100 MG TABLET PO (08:37)
[2024-10-27] MEDS: PANTOPRAZOLE 40 MG TABLET PO (08:37)
[2024-10-27] MEDS: TOLNAFTATE 1% POWDER 45 GM BTL 1 APPLIC TOPICAL (08:37)
[2024-10-27] MEDS: TAMSULOSIN HCL 0.4 MG CAPSULE PO (08:37)
--- NOTE | 2024-10-27 11:33 | PM.DS ---
DS: Admitting Diagnosis Discharge Date 10/27/24 DS: Discharge Diagnosis Discharge Diagnosis (1) UTI (urinary tract infection): Code(s): N39.0 - Urinary tract infection, site not specified Status: Acute (2) TATUM (acute kidney injury): Code(s): N17.9 - Acute kidney failure, unspecified Status: Resolved (3) Abscessed tooth: Code(s): K04.7 - Periapical abscess without sinus Status: Acute (4) Acute parotitis: Code(s): K11.21 - Acute sialoadenitis Status: Acute (5) Urinary retention: Code(s): R33.9 - Retention of urine, unspecified Status: Acute (6) Supratherapeutic INR: Code(s): R79.1 - Abnormal coagulation profile Status: Acute (7) DVT (deep venous thrombosis): Qualifiers: Affected thrombotic vein of extremity: tibial Chronicity: acute DVT location: lower extremity Laterality: right Qualified Code(s): I82.441 - Acute embolism and thrombosis of right tibial vein Code(s): I82.409 - Acute embolism and thrombosis of unspecified deep veins of unspecified lower extremity Status: Acute (8) Type 2 diabetes mellitus without complications: Qualifiers: Diabetes mellitus group home insulin use: without moth exterminator use Qualified Code(s): E11.9 - Type 2 diabetes mellitus without complications Code(s): E11.9 - Type 2 diabetes mellitus without complications Status: Chronic (9) GERD without esophagitis: Code(s): K21.9 - Gastro-esophageal reflux disease without esophagitis Status: Acute (10) Hyperlipidemia: Qualifiers: Hyperlipidemia type: mixed hyperlipidemia Qualified Code(s): E78.2 - Mixed hyperlipidemia Code(s): E78.5 - Hyperlipidemia, unspecified Status: Acute (11) Essential (primary) hypertension: Code(s): I10 - Essential (primary) hypertension Status: Chronic (12) Hyponatremia: Code(s): E87.1 - Hypo-osmolality and hyponatremia Status: Acute (13) Weakness: Code(s): R53.1 - Weakness Status: Acute (14) Bilateral knee pain: Code(s): M25.561 - Pain in right knee; M25.562 - Pain in left knee Status: Acute DS: Summary Time Spent with Patient Time attestation: Total time spent providing and/or coordinating discharge services: Exam Narrative: General: In no acute distress, well nourished Cardiac: Normal S1 and S2. No murmur, gallops or friction rubs, peripheral pulses intact. Respiratory: Lungs clear to auscultation, no adventitious lung sounds, currently on room air Gastrointestinal: soft, non-distended, non-tender, normoactive bowel sounds. : Patterson catheter placed due to urinary retention, draining clear yellow urine with sediment Extremities: moves all extremities well, bilateral lower extremity edema, reporting pain in bilateral knees today Skin: excessively dry and flaky Neuro: Alert and oriented x4 DS: Data Data Completed and Pending Completed studies during hospitalization: bilateral knee x-ray facial CT head CT chest x-ray Pending studies at discharge: none Labs on day of discharge: Labs from last 24 hours 10/27/24 10/27/24 10/26/24 07:47 04:50 20:55 WBC 10.0 RBC 2.65 L Hgb 8.2 L Hct 26.2 L MCV 98.9 MCH 30.9 MCHC 31.3 L RDW 14.7 H Plt Count 227 MPV 10.6 Immature Gran % (Auto) Not Reportable Neut % (Auto) Not Reportable Lymph % (Auto) Not Reportable [place] % (Auto) Not Reportable Eos % (Auto) Not Reportable Baso % (Auto) Not Reportable Lymph # (Auto) Not Reportable [place] # (Auto) Not Reportable Eos # (Auto) Not Reportable Baso # (Auto) Not Reportable Abs Immat Gran (auto) Not Reportable Absolute Neuts (auto) Not Reportable Absolute Nucleated RBC Not Reportable Neutrophils % (Manual) 47 Band Neutrophils % 0 Lymphocytes % (Manual) 32 Monocytes % (Manual) 13 H Eosinophils % (Manual) 8 H Basophils % (Manual) 0 Nucleated RBC % Not Reportable Abs Neuts (Manual) 4.70 Abs Lymphs (Manual) 3.20 Abs Monocytes (Manual) 1.30 H Absolute Eos (Manual) 0.80 H Abs Basophils (Manual) 0.00 Platelet Estimate Adequate Schistocytes Not Reportable PT 40.0 H INR 4.2 Sodium 143 Potassium 4.0 Chloride 109 H Carbon Dioxide 28 Anion Gap 6 BUN 33 H Creatinine 1.44 H Estim Creat Clear Calc 37 Estimated GFR 35 L Glucose 110 H POC Capillary Glucose 86 173 H Calculated Osmolality 304 H Calcium 7.7 L Total Bilirubin 0.2 AST 41 H ALT 54 Alkaline Phosphatase 52 Total Protein 4.8 L Albumin 1.7 L 10/26/24 10/26/24 17:02 12:04 WBC RBC Hgb Hct MCV MCH MCHC RDW Plt Count MPV Immature Gran % (Auto) Neut % (Auto) Lymph % (Auto) [place] % (Auto) Eos % (Auto) Baso % (Auto) Lymph # (Auto) [place] # (Auto) Eos # (Auto) Baso # (Auto) Abs Immat Gran (auto) Absolute Neuts (auto) Absolute Nucleated RBC Neutrophils % (Manual) Band Neutrophils % Lymphocytes % (Manual) Monocytes % (Manual) Eosinophils % (Manual) Basophils % (Manual) Nucleated RBC % Abs Neuts (Manual) Abs Lymphs (Manual) Abs Monocytes (Manual) Absolute Eos (Manual) Abs Basophils (Manual) Platelet Estimate Schistocytes PT INR Sodium Potassium Chloride Carbon Dioxide Anion Gap BUN Creatinine Estim Creat Clear Calc Estimated GFR Glucose POC Capillary Glucose 148 H 127 H Calculated Osmolality Calcium Total Bilirubin AST ALT Alkaline Phosphatase Total Protein Albumin Procedures/Treatments: none Discharge Plan Discharge Attending physician on discharge: Juventino Cabral Discharging Clinician: Kristal Delgado Anticipated Discharge Date/Time: 10/27/24 11:12 Patient Disposition: Home, Self-Care Activity: as tolerated Diet: as tolerated and diabetic Discharge Instructions: initial your antibiotic as directed even if your feeling better. You were currently on doxycycline and Augmentin for the next 14 days for your parotiditis an abscess tooth you completed a 7 day course of Unasyn while inpatient for your urinary tract infection and tooth infection follow-up with primary care doctor regarding your severe osteoarthritis in both knees. You may be able to get cortisone injections to help relieve the pain. Follow-up with a dentist as soon as possible! having frequent abscess teeth and poor dentition can lead to heart problems if left untreated you had some urinary retention so we are leaving a Patterson catheter in your bladder and you will need to take tamsulosin for another 48 hours and then they can take the catheter out and give you a void trial. Your last INR was 4.2 and we are holding her Coumadin today. You will need INR drawn daily considering you are on Augmentin. continue to hold lisinopril and Lasix due to your acute kidney injury. You are trending back to baseline on your creatinine. Your current creatinine is 1.44. Baseline creatinine 0.96-1.0 obtain lab in 1 week before you follow-up with your primary care doctor Patient Instructions: Antibiotic Form, Doxycycline (By mouth), Amoxicillin/Clavulanate Potassium (By mouth), Tamsulosin (By mouth), Urinary Tract Infection in Women (DC), Dental Abscess (GEN), Osteoarthritis (DC), Acute Urinary Retention in Women (ED) Patient Language: Grenadian Stand Alone Forms: General Discharge Information, Jail Discharge Follow-up/Referrals: Lasha Mahmood MD [Primary Care Provider] - 1 week Discharge Medications: New diclofenac sodium [Voltaren Arthritis Pain] 1 % gel 4 g topical QID Qty: 100 0RF Rx Instructions: apply to single knee, ankle, foot; for foot includes sole/toes/top of foot doxycycline hyclate 100 mg Tablet 100 mg PO Q12HR Qty: 25 0RF amoxicillin-pot clavulanate 875-125 mg tablet 1 tablet PO Q12H Qty: 24 0RF tamsulosin 0.4 mg Capsule 0.4 mg PO QAM Qty: 30 0RF Continued sennosides [Senna Lax] 8.6 mg tablet 8.6 mg PO Q12H PRN (Reason: constipation) Rx Instructions: Give 2 tabs polyethylene glycol 3350 [Miralax] 17 gram powder in packet 17 g PO DAILY PRN (Reason: constipation) acetaminophen [Acetaminophen Extra Strength] 500 mg tablet 500 mg PO Q6H PRN (Reason: fever or pain) Rx Instructions: Take 2 tabs to make 1000 mg PRN atorvastatin 20 mg Tablet 20 mg PO HS gabapentin 100 mg Capsule 300 mg PO TID metformin 500 mg tablet 500 mg PO BID pantoprazole 40 mg tablet,delayed release (DR/EC) 40 mg PO DAILY pioglitazone 30 mg tablet 30 mg PO DAILY cyclobenzaprine 10 mg Tablet 10 mg PO Q12H PRN (Reason: Muscle Spasm, Neck pain) Qty: 30 0RF Eliquis 5 mg Tablet 5 mg PO Q12HR Qty: 60 0RF Held furosemide [Lasix] 20 mg tablet 20 mg PO DAILY Qty: 30 0RF Hold Instructions: Resume on 11/03/24. Resume when your doctor says it is safe to restart considering your acute kidney injury. Get Lab in 1 week to recheck creatinine. warfarin 5 mg tablet 5 mg PO DAILY Hold Instructions: Resume on 10/28/24. recheck INR in the morning as she was supratherapeutic today. She is currently on Augmentin for the next 14 days which can alter her INR. she will likely require INR check everyday until she gets therapeutic again after Augmentin is complete. warfarin 1 mg tablet 2 mg PO DAILY Hold Instructions: Resume on 10/28/24. recheck INR in the morning as she was supratherapeutic today. She is currently on Augmentin for the next 14 days which can alter her INR. she will likely require INR check everyday until she gets therapeutic again after Augmentin is complete. lisinopril 5 mg Tablet 5 mg PO QAM Qty: 20 0RF Hold Instructions: Resume on 11/03/24. Resume when your doctor says it is safe to restart considering your acute kidney injury. Get Lab in 1 week to recheck creatinine. Other Ambulatory Orders: Basic Metabolic Panel (Routine) Timeframe: 1 Week Location: Determined by Patient Ordered By: Kristal Delgado Date of admission: 10/22/24 16:10 Primary Care Provider: Lasha Mahmood Admitting Provider: Juventino Cabral Attending physician on admission: Kristal Delgado Condition: Improved Quality VTE Prophylaxis VTE prophylaxis: pharmacologic ordered Hospitalist MIPS Heart Failure (Exclusion) Patient has history of Heart Transplant or Left Ventricular Assistive Device?: No IF YES, STOP HERE Heart Failure (Qualifier) Patient has current or prior documentation of LVEF less than or equal to 40%, or mod/servere depressed LVSF?: No IF NO, STOP HERE
[2024-10-27 12:06] LABS: Glucose Point of Care 102 mg/dl (65-105)
--- NOTE | 2024-10-27 13:48 | PC.NURSE ---
report called to merged with [facility]. report given to abdullahi. aware of need for keeping mid line drg in place til at least 1330 tomorrow.
--- NOTE | 2024-10-27 14:29 | PC.NURSE ---
1420 up into with jung lift. la staff here. care turned over. all personal belongings sent with her.
--- NOTE | 2024-10-29 12:14 | PC.NURSE ---
Discharge back to group home, no questions from PA staff regarding dc instructions
== END 2024-10-27 14:20 | disposition home or self-care (01) | DRG 690 ==
LOC: CHSED 14:02 → CHS2ND 14:18
PROVIDERS: Admitting Provider Internal Medicine; Emergency Provider Internal Medicine Critical Care Medicine; PCP Family Medicine; Visit Provider Nurse Practitioner Acute Care
DX: N39.0 Urinary tract infection, site not specified (principal); I13.0 Hypertensive heart and chronic kidney disease with heart failure and stage 1 through stage 4 chronic kidney disease, or unspecified chronic kidney disease; I50.32 Chronic diastolic (congestive) heart failure; N17.9 Acute kidney failure, unspecified; E87.1 Hypo-osmolality and hyponatremia; I48.92 Unspecified atrial flutter; N18.31 Chronic kidney disease, stage 3a; E11.22 Type 2 diabetes mellitus with diabetic chronic kidney disease; E11.42 Type 2 diabetes mellitus with diabetic polyneuropathy; E78.5 Hyperlipidemia, unspecified; E66.01 Morbid (severe) obesity due to excess calories; K21.9 Gastro-esophageal reflux disease without esophagitis; K11.21 Acute sialoadenitis; K04.7 Periapical abscess without sinus; B96.1 Klebsiella pneumoniae [K. pneumoniae] as the cause of diseases classified elsewhere; M17.0 Bilateral primary osteoarthritis of knee; R33.9 Retention of urine, unspecified; R79.1 Abnormal coagulation profile; Z86.73 Personal history of transient ischemic attack (TIA), and cerebral infarction without residual deficits; Z86.718 Personal history of other venous thrombosis and embolism; Z79.01 Long term (current) use of anticoagulants
CPT/HCPCS: 36415; 36569; 70450; 70487; 71045; 73560; 80053; 81001; 82948; 83605; 83690; 83880; 84443; 84484; 85025; 85610; 85730; 87077; 87086; 87088; 87186; 87637; 93005; 93308; 96365; 96367; 96375; 97162; 97166; 97530; 99285; A9270; G0378; J0295; J0696; J1200; J1815; J3430; J7030; J7512; Q9967

== ENCOUNTER 2024-10-30 10:25 | Outpatient (CLI) | payer MEDICARE, SELFPAY ==
[2024-10-30 10:56] LABS: Hemoglobin 10.4 g/dL (11.7-13.8); Mean Corpuscular HGB Conc 28.9 g/dL (32-36); Mean Corpuscular Hemoglobin 31.5 pg (27.0-31.0); Mean Corpuscular Volume 109.1 fL (78.0-102.0); Mean Platelet Volume 10.8 fl (9.2-11.8); Platelet Count Result 257 K/mm3 (150-420); Red Cell Distribution Width 15.5 % (11.6-14.4); White Blood Count 16.7 K/mm3 (4.8-10.8)
[2024-10-30 11:11] LABS: Prothrombin Time 56.7 Seconds (9.50-12.1)
[2024-10-30 11:17] LABS: INR 6.1
[2024-10-30 11:40] LABS: Alanine Aminotransferase 30 U/L (14-59); Albumin Level 2.5 g/dL (3.4-5.0); Alkaline Phosphatase 79 U/L (46-116); Anion Gap 11 mmol/L (4-12); Aspartate Amino Transferase 16 U/L (15-37); Bilirubin Direct 0.1 mg/dL (0-0.2); Bilirubin,Total 0.4 mg/dL (0.00-1.00); Blood Urea Nitrogen 23 mg/dL (7-18); Calcium 8.3 mg/dL (8.5-10.1); Carbon Dioxide 27 mmol/L (21-32); Chloride 105 mmol/L (98-108); Cholesterol 117 mg/dL (0-200); Estimated Glomerular Filt Rate 32; Glucose 171 mg/dL (70-99); HDL Direct 45 mg/dL (40-60); LDL Cholesterol Calculated 59 mg/dL (<130); Osmolality Calculated 303 mOsm/kg (285-295); Potassium 3.8 mmol/L (3.5-5.1); Sodium 143 mmol/L (136-145); Thyroid Stimulating Hormone 2.51 uIU/mL (0.36-3.74); Total Protein 5.8 g/dL (6.4-8.2); Triglycerides 65 mg/dL (0-150)
== END 2024-10-30 10:26 | disposition home or self-care (01) ==
PROVIDERS: PCP Family Medicine; Visit Provider Family Medicine
DX: M06.9 Rheumatoid arthritis, unspecified (principal); E11.42 Type 2 diabetes mellitus with diabetic polyneuropathy; J81.0 Acute pulmonary edema; E78.5 Hyperlipidemia, unspecified; R79.1 Abnormal coagulation profile; N18.31 Chronic kidney disease, stage 3a; I82.409 Acute embolism and thrombosis of unspecified deep veins of unspecified lower extremity; I50.9 Heart failure, unspecified
CPT/HCPCS: 36415; 80048; 80061; 80076; 83036; 84443; 85027; 85610

== ENCOUNTER 2024-11-02 14:16 | Outpatient (CLI) | payer MEDICARE, SELFPAY ==
[2024-11-02 14:50] LABS: Hematocrit 31.6 % (35.0-42.0); Hemoglobin 9.6 g/dL (11.7-13.8); Mean Corpuscular HGB Conc 30.4 g/dL (32-36); Mean Corpuscular Hemoglobin 30.9 pg (27.0-31.0); Mean Corpuscular Volume 101.6 fL (78.0-102.0); Mean Platelet Volume 11.5 fl (9.2-11.8); Platelet Count Result 232 K/mm3 (150-420); Red Blood Count 3.11 M/mm3 (4.20-5.40); Red Cell Distribution Width 15.9 % (11.6-14.4); White Blood Count 14.2 K/mm3 (4.8-10.8)
[2024-11-02 15:22] LABS: Anion Gap 12 mmol/L (4-12); Blood Urea Nitrogen 25 mg/dL (7-18); Calcium 8.3 mg/dL (8.5-10.1); Carbon Dioxide 28 mmol/L (21-32); Chloride 104 mmol/L (98-108); Estimated Glomerular Filt Rate 42; Glucose 165 mg/dL (70-99); Osmolality Calculated 306 mOsm/kg (285-295); Potassium 4.3 mmol/L (3.5-5.1); Sodium 144 mmol/L (136-145)
[2024-11-02 15:26] LABS: Prothrombin Time 61.9 Seconds (9.50-12.1)
[2024-11-02 15:29] LABS: INR 6.7
== END 2024-11-02 14:17 | disposition home or self-care (01) ==
LOC: CHSLAB 14:17
PROVIDERS: PCP Family Medicine; Visit Provider Nurse Practitioner Acute Care
DX: N18.31 Chronic kidney disease, stage 3a (principal); J81.1 Chronic pulmonary edema; E11.42 Type 2 diabetes mellitus with diabetic polyneuropathy; I50.9 Heart failure, unspecified
CPT/HCPCS: 36415; 80048; 85027; 85610; 85730

== ENCOUNTER 2024-11-05 09:45 | Outpatient (CLI) | payer MEDICARE, SELFPAY ==
--- NOTE | ~2024-11-05 | XR_ITS ---
XR abdomen/kub 1V Ordering provider: Lasha Mahmood MD History: . ABDOMINAL PAIN . Comparison: None. FINDINGS: BOWEL: Slightly distended bowel loops with gases. Nonobstructive bowel gas pattern. ORGANOMEGALY: None. SIGNIFICANT PATHOLOGIC CALCIFICATIONS: None. OTHER: No free air is seen under the diaphragm. Degenerative changes of the spine. Levoscoliosis. Pub ic symphysitis. IMPRESSION: NO definite ACUTE ABDOMINAL FINDINGS. Slightly distended bowel loops with gases with no definite evidence of obstruction. Reviewed, dictated and finalized at location A. LITION SPECIALIST IMPRESSION: NO definite ACUTE ABDOMINAL FINDINGS. Slightly distended bowel loops with gases with no definite evidence of obstruct ion.
[2024-11-05 10:19] LABS: Hematocrit 28.4 % (35.0-42.0); Hemoglobin 8.7 g/dL (11.7-13.8); Mean Corpuscular HGB Conc 30.6 g/dL (32-36); Mean Corpuscular Hemoglobin 30.3 pg (27.0-31.0); Mean Platelet Volume 10.9 fl (9.2-11.8); Platelet Count Result 209 K/mm3 (150-420); Red Blood Count 2.87 M/mm3 (4.20-5.40); Red Cell Distribution Width 15.9 % (11.6-14.4); White Blood Count 9.3 K/mm3 (4.8-10.8)
[2024-11-05 10:40] LABS: INR 1.9; Prothrombin Time 19.6 Seconds (9.50-12.1)
--- OUTSIDE RECORDS SUMMARY | 2024-11-05 10:52 | XMS_ITS ---
Author Organization [facility] Address [address] [place], [place] [id number] Care Team Providers Care Gunstock Repairer Name Role Phone MI JEREZ Unavailable [phone] Lasha Mahmood Unavailable Unavailable REASON FOR VISIT *General care Encounters Encounter Location Date Provider Diagnosis [place] [address] [place], [place] [id number] 08/08/2023 MI JEREZ Plan Of Treatment No Information Progress Notes * MADISON GARNERDOB: 4 (79 yo F)Acc No.[id number]:08/08/2023 Patient: MADISON BENEDICT Provider: Silvia JEREZ :1945 A ge:77 Y S ex:Female Date:08/08/2023 Address:[address] [facility] Subjective: * Chief Complaints: * 1 . *General care. * Medical History: Objective: * Vitals: Assessment: Plan: * Treatment: * Billing Information: * Visit Code: * Procedure Codes: * Electronic signature of FLOYD JEREZ DPM on 11/05/2024 at 10:52 AM AUTOMATION TEST ENGINEER Sign off status: Pending * Provider: Silvia JEREZ Date: 1 10/09/2022 Generated for Vanessai ng/Fapriceg/eTransmitting on: 0 11/05/2024 10:52 AM AUTOMATION TEST ENGINEER
--- OUTSIDE RECORDS SUMMARY | 2024-11-05 10:52 | XMS_ITS ---
Author Organization [facility] Address [address] [place], [place] [id number] Care Team Providers Care Graphics Software Engineer Name Role Phone MI JEREZ Unavailable [phone] Lasha Mahmood Unavailable Unavailable REASON FOR VISIT *General care Encounters Encounter Location Date Provider Diagnosis [address] [id number] 01/16/2024 MI JEREZ Plan Of Treatment No Information Progress Notes * MADISON GARNERDOB: [birth year] (79 yo F)Acc No.[id number]:01/16/2024 Patient: Deshaun ESTRADAMADISON Provider: Silvia JEREZ :1945 A ge:78 Y S ex:Female Date:01/16/2024 Address:[address] [place], [place] [id number] Subjective: * Chief Complaints: * 1 . *General care. * Medical History: Objective: * Vitals: Assessment: Plan: * Treatment: * Billing Information: * Visit Code: * Procedure Codes: * Electronic signature of FLOYD JEREZ DPM on 11/05/2024 at 10:52 AM ACETYLENE CUTTER Sign off status: Pending * Provider: Silvia JEREZ Date: 0 01/16/2024 Generated for Nancy ng/Faluis/eTransmitting on: 0 11/05/2024 10:52 AM ACETYLENE CUTTER
--- OUTSIDE RECORDS SUMMARY | 2024-11-05 10:52 | XMS_ITS | Patient Health Record ---
Author Organization [facility] Address [address] [place], [place] [phone] Care Team Providers Care Corner Trimmer Operator Name Role Phone MERI MI Unavailable [phone] Lasha Mahmood Unavailable Unavailable Allergies Allergen (clinical [...] 11/14/2023 Encounters Encounter Location Date Provider Diagnosis [place] [address] [place], [place] [id number] 11/14/2023 MI JEREZ Other hammer toe(s) (acquired), right foot M20.41 ; Tinea unguium B35.1 ; Other hammer toe(s) (acquired), left foot M20.42 ; Pain in right toe(s) M79.674 ; Pain in left toe(s) M79.675 ; Unspecified atherosclerosis of [place] arteries of extremities, bilateral legs I70.203 and [...] (ICD-10 - M79.675) 11/14/2023 Unspecified atherosclerosis of [place] arteries of extremities, bilateral legs (ICD-10 - [...] Date Coverage End Date Medicare Part B [place] [address] [place] [address] [id number] MADISON GARNER Self - patient is the insured [facility] ([facility]) ATTN CLAIMS [address] [place] [address] [id number] MADISON GARNER Self - patient is the insured Medical (General) History Medical History History ICD Code kidney stones neuropathy Arthritis Bladder infections Diabetic Blood clots
--- OUTSIDE RECORDS SUMMARY | 2024-11-05 10:53 | XMS_ITS | Clinical Summary ---
Author Organization [facility] Address [address] [place] [address] Care Team Providers Care Premium Representative Name Role Phone Beth Peterson SENIOR COMMERCIAL LOAN OFFICER Unavailable Allergies No known active allergies Medications [...] hyperosmolarity without nonketotic hyperglycemic-hyper osmolar coma (NKHHC) ([facility]) Per sliding scale 0-149 = 0 units [...] hyperosmolarity without nonketotic hyperglycemic-hyper osmolar coma (NKHHC) ([facility]) Take 1 tablet (500 mg total) by [...] with hyperosmolarity without nonketotic hyperglycemic-hyperosmolar coma (NKHHC) ([facility]) 08/17/2021 Personal history of noncompl iance with medical treatment, presenting hazards to health 08/17/2021 Repeated falls 08/17/2021 Acute kidney failure, unspecified 08/17/2021 Other specified arthritis, unspecified site 08/02 Morbid obesity ([facility]) 08/17/2021 Pain in joint, lower leg 08/17/2021 [...] Dates Next Due Influenza Adult (Generic) 08/15/2021,03/2017,05/29/2016,2014 [email or web address]) COVID-19 AD26 VACCINE 0.5 ML IM SUSP [...] on file Legal Sex Female 2:51 PM CURING FINISHER Gender Identity Not on file Sexual Orientation Not on file Last Filed Vital Signs Vital Sign Reading Time Taken Comments Blood Pressure 122/45 09/13/2021 8:55 AM CURING FINISHER Pulse 76 09/13/2021 8:55 AM CURING FINISHER Temperature 36.7 C (98 F) 09/13/2021 8:55 AM CURING FINISHER Respiratory Rate 20 09/13/2021 8:55 AM CURING FINISHER Oxygen Saturation 97% 09/13/2021 8:55 AM CURING FINISHER Inhaled Oxygen Concentration - - Weight 103 kg (227 lb) 09/13/2021 8:55 AM CURING FINISHER Height 157.5 cm (5' 2 ) 07/15/2021 3:08 PM CURING FINISHER Body Mass Index 41.52 07/15/2021 3:08 PM CURING FINISHER Plan of Treatment Health Maintenance Due Date [...] home safety measures General No Theresa Belle farm appraiser Procedure Name Priority Date/Time Associated Diagnosis Comments HEMOGLOBIN, GLYCOSYLATED Routine 08/29/2021 8:20 AM CURING FINISHER from Last 3 Months or Most Recently Relevant to Health Maintenance Results * (ABNORMAL) HEMOGLOBIN, GLYCOSYLATED (08/29/2021 8:20 AM CURING FINISHER) HGB A1C 8.3(H) 4.2 - 6.3 % [facility] Comment: Note: Hemoglobinopathies such as HbF, HbS, etc. may give incorrect results with this test. ESTIMATED AVG GLUCOSE 190 mg/dL [facility] Comment: (This value is a calculated estimate of the mean blood glucose over the last 60 days based on the patient's HgbA1c value. 08/29/2021 8:20 AM CURING FINISHER 08/29/2021 8:20 AM CURING FINISHER us Ryan Contreras DO LABORATORY Final Result Performing Organization Address City/State/[facility] Co de Phone Number [address] [address] from Last 3 Months or Most Recently Relevant to Health Maintenance Advance Directives Documents on File Type Date Recorded Patient Roofing Subcontractor Expl anation DNR (Do Not Resuscitate) Documentation 08/22/2021 9:38 AM POLST * DNR (Latest Code Status on File) Date Activated Date Inactivated Comments 08/23/2021 9:40 AM * Full Code Date Activated Date Inactivated Comments 08/17/2021 2:39 PM 08/23/2021 9:40 AM * Full Code Date Activated Date Inactivated Comments 07/16/2021 12:10 AM 07/19/2021 10:01 PM Care Teams Premium Representative Relationship Specialty Start Date End Date Beth Peterson NP Nurse Practitioner [facility] 08/14/21
--- OUTSIDE RECORDS SUMMARY | 2024-11-05 10:53 | XMS_ITS ---
Author Organization [facility] Address [address] [place], [place] [id number] Care Team Providers Care Information Strategist Name Role Phone MERI MI Unavailable [phone] Lasha Mahmood Unavailable Unavailable Allergies Allergen (clinical [...] 11/14/2023 Encounters Encounter Location Date Provider Diagnosis [address] [address] [place], [place] [phone] 11/14/2023 MI JEREZ Other hammer toe(s) (acquired), right foot M20.41 ; Tinea unguium B35.1 ; Other hammer toe(s) (acquired), left foot M20.42 ; Pain in right toe(s) M79.674 ; Pain in left toe(s) M79.675 ; Unspecified atherosclerosis of [place] arteries of extremities, bilateral legs I70.203 and [...] (ICD-10 - M79.675) 11/14/2023 Unspecified atherosclerosis of [place] arteries of extremities, bilateral legs (ICD-10 - [...] OTC and prescription treatments. Unspecified atherosclerosis of [place] arteries of extremities, bilateral legs Patient educated [...] * TJ GARNERVIKADOB: 4 (78 yo F)Acc No.[id number]:11/14/2023 Patient: MADISON BENEDICT Provider: Silvia JEREZ :1945 A ge:78 Y S ex:Female Date:11/14/2023 Address:[address] [place], [place] [id number] Subjective: * Chief Complaints: * 1 . [...] Patient denies c hest pain, history of GA, irregular heartbeat. M usculoskeletal: Patient denies a [...] M79.675 6 . U nspecified atherosclerosis of [place] arteries of extremities, bilateral legs - I70.203 [...] were emphasized. 3. U nspecified atherosclerosis of [place] arteries of extremities, bilateral legs Notes: Patient [...] Information: * Visit Code: * Procedure Codes: 47329 DEBRIDE NAIL, 6 OR MORE. Modifiers: Q8 * Sign off status: Completed true * Provider: Silvia JEREZ Date: 0 11/14/2023 Generated for Nancy bruno/Ehsan/Regine on: 0 11/05/2024 10:52 AM FIREARMS INSPECTOR History and Physical Notes * HPI (History [...]
[2024-11-05 11:16] LABS: Alanine Aminotransferase 14 U/L (14-59); Albumin Level 2.3 g/dL (3.4-5.0); Alkaline Phosphatase 78 U/L (46-116); Amylase 73 U/L (25-115); Anion Gap 5 mmol/L (4-12); Aspartate Amino Transferase 13 U/L (15-37); Bilirubin,Total 0.3 mg/dL (0.00-1.00); Blood Urea Nitrogen 25 mg/dL (7-18); Calcium 8.7 mg/dL (8.5-10.1); Carbon Dioxide 31 mmol/L (21-32); Chloride 106 mmol/L (98-108); Estimated Glomerular Filt Rate 41; Glucose 165 mg/dL (70-99); Lipase 21 U/L (16-77); Osmolality Calculated 302 mOsm/kg (285-295); Potassium 4.2 mmol/L (3.5-5.1); Sodium 142 mmol/L (136-145); Total Protein 5.3 g/dL (6.4-8.2)
== END 2024-11-05 09:46 | disposition home or self-care (01) ==
PROVIDERS: PCP Family Medicine; Visit Provider Family Medicine
DX: R10.9 Unspecified abdominal pain (principal); R13.10 Dysphagia, unspecified; Z79.01 Long term (current) use of anticoagulants
CPT/HCPCS: 36415; 74018; 80053; 82150; 83690; 85027; 85610

== ENCOUNTER 2024-11-12 09:49 | Outpatient (CLI) | payer MEDICARE, SELFPAY ==
[2024-11-12 10:35] LABS: INR 3.2; Prothrombin Time 31.8 Seconds (9.50-12.1)
--- OUTSIDE RECORDS SUMMARY | 2024-11-12 11:10 | XMS_ITS | Clinical Summary ---
Author Organization [facility] Address [address] [place] [address] Care Team Providers Care Fur Blender Name Role Phone Beth Peterson PRODUCTION REPRODUCTION MANAGER Unavailable Allergies No known active allergies Medications [...] hyperosmolarity without nonketotic hyperglycemic-hyper osmolar coma (NKHHC) ([facility]) Per sliding scale 0-149 = [...] hyperosmolarity without nonketotic hyperglycemic-hyper osmolar coma (NKHHC) ([facility]) Take 1 tablet (500 mg [...] with hyperosmolarity without nonketotic hyperglycemic-hyperosmolar coma (NKHHC) ([facility]) 08/17/2021 Personal history of noncompl iance with medical treatment, presenting hazards to health 08/17/2021 Repeated falls 08/17/2021 Acute kidney failure, unspecified 08/17/2021 Other specified arthritis, unspecified site 08/02 Morbid obesity 08/17/2021 Pain in joint, lower leg 08/17/2021 [...] Dates Next Due Influenza Adult (Generic) 08/15/2021,03/2017,05/29/2016,2014 [employer] ([employer]) COVID-19 AD26 VACCINE 0.5 ML IM SUSP [...] on file Legal Sex Female 2:51 PM TERMINAL OPERATIONS MANAGER Gender Identity Not on file Sexual Orientation Not on file Last Filed Vital Signs Vital Sign Reading Time Taken Comments Blood Pressure 122/45 09/13/2021 8:55 AM TERMINAL OPERATIONS MANAGER Pulse 76 09/13/2021 8:55 AM TERMINAL OPERATIONS MANAGER Temperature 36.7 C (98 F) 09/13/2021 8:55 AM TERMINAL OPERATIONS MANAGER Respiratory Rate 20 09/13/2021 8:55 AM TERMINAL OPERATIONS MANAGER Oxygen Saturation 97% 09/13/2021 8:55 AM TERMINAL OPERATIONS MANAGER Inhaled Oxygen Concentration - - Weight 103 kg (227 lb) 09/13/2021 8:55 AM TERMINAL OPERATIONS MANAGER Height 157.5 cm (5' 2 ) 07/15/2021 3:08 PM TERMINAL OPERATIONS MANAGER Body Mass Index 41.52 07/15/2021 3:08 PM TERMINAL OPERATIONS MANAGER Plan of Treatment Health Maintenance Due Date [...] home safety measures General No Theresa Belle building stonecutter Procedure Name Priority Date/Time Associated Diagnosis Comments HEMOGLOBIN, GLYCOSYLATED Routine 08/29/2021 8:20 AM TERMINAL OPERATIONS MANAGER from Last 3 Months or Most Recently Relevant to Health Maintenance Results * (ABNORMAL) HEMOGLOBIN, GLYCOSYLATED (08/29/2021 8:20 AM TERMINAL OPERATIONS MANAGER) HGB A1C 8.3(H) 4.2 - 6.3 % [facility] Comment: Note: Hemoglobinopathies such as HbF, HbS, etc. may give incorrect results with this test. ESTIMATED AVG GLUCOSE 190 mg/dL [facility] Comment: (This value is a calculated estimate of the mean blood glucose over the last 60 days based on the patient's HgbA1c value. 08/29/2021 8:20 AM TERMINAL OPERATIONS MANAGER 08/29/2021 8:20 AM TERMINAL OPERATIONS MANAGER Ryan Contreras DO LABORATORY Final Result [facility] [address] [address] from Last 3 Months or Most Recently Relevant to Health Maintenance Advance Directives Documents on File Type Date Recorded Patient Furniture Sales Consultant Expl anation DNR (Do Not Resuscitate) Documentation 08/22/2021 9:38 AM POLST * DNR (Latest Code Status on File) Date Activated Date Inactivated Comments 08/23/2021 9:40 AM * Full Code Date Activated Date Inactivated Comments 08/17/2021 2:39 PM 08/23/2021 9:40 AM * Full Code Date Activated Date Inactivated Comments 07/16/2021 12:10 AM 07/19/2021 10:01 PM Care Teams Fur Blender Relationship Specialty Start Date End Date Beth Peterson NP Nurse Practitioner [facility] 08/14/21
--- OUTSIDE RECORDS SUMMARY | 2024-11-12 11:10 | XMS_ITS ---
Author Organization [facility] Address [address] [place], [place] [address] Care Team Providers Care Aba Therapist Name Role Phone MI JEREZ Unavailable [phone] Lasha Mahmood Unavailable Unavailable REASON FOR VISIT *General care Encounters Encounter Location Date Provider Diagnosis [place] [address] [place], [place] [id number] 08/08/2023 MI JEREZ Plan Of Treatment No Information Progress Notes * MADISON GARNERDOB: 4 (79 yo F)Acc No.[id number]:08/08/2023 Patient: MADISON BENEDICT Provider: Silvia JEREZ :1945 A ge:77 Y S ex:Female Date:08/08/2023 Address:[address] [facility] Subjective: * Chief Complaints: * 1 . *General care. * Medical History: Objective: * Vitals: Assessment: Plan: * Treatment: * Billing Information: * Visit Code: * Procedure Codes: * Electronic signature of FLOYD JEREZ DPM on 11/12/2024 at 11:09 AM CDT Sign off status: Pending * Provider: Silvia JEREZ Date: 1 10/09/2022 Generated for Vanessai ng/Fapriceg/eTransmitting on: 0 11/12/2024 11:09 AM CDT
--- OUTSIDE RECORDS SUMMARY | 2024-11-12 11:10 | XMS_ITS ---
Author Organization [facility] Address [address] [place], [place] [address] Care Team Providers Care Graduation Coach Name Role Phone IM JEREZ Unavailable [phone] Lasha Mahmood Unavailable Unavailable REASON FOR VISIT *General care Encounters Encounter Location Date Provider Diagnosis [address] [id number] 01/16/2024 MI JEREZ Plan Of Treatment No Information Progress Notes * MADISON GARNERDOB: 4 (79 yo F)Acc No.[id number]:01/16/2024 Patient: Deshaun ESTRADAMADISON Provider: Silvia JEREZ :1945 A ge:78 Y S ex:Female Date:01/16/2024 Address:[address] [place], [place] [id number] Subjective: * Chief Complaints: * 1 . *General care. * Medical History: Objective: * Vitals: Assessment: Plan: * Treatment: * Billing Information: * Visit Code: * Procedure Codes: * Electronic signature of FLOYD JEREZ DPM on 11/12/2024 at 11:10 AM CDT Sign off status: Pending * Provider: Silvia JEREZ Date: 0 01/16/2024 Generated for Vanessai ng/Fapriceg/eTransmitting on: 0 11/12/2024 11:10 AM CDT
--- OUTSIDE RECORDS SUMMARY | 2024-11-12 11:10 | XMS_ITS ---
Author Organization [facility] Address [address] [place], [place] [address] Care Team Providers Care Police Specialist Name Role Phone MERI MI Unavailable [phone] Lasha Mahmood Unavailable Unavailable Allergies Allergen (clinical [...] 11/14/2023 Encounters Encounter Location Date Provider Diagnosis [place] [address] [place], [place] [id number] 11/14/2023 MI JEREZ Other hammer toe(s) (acquired), right foot M20.41 ; Tinea unguium B35.1 ; Other hammer toe(s) (acquired), left foot M20.42 ; Pain in right toe(s) M79.674 ; Pain in left toe(s) M79.675 ; Unspecified atherosclerosis of [place] arteries of extremities, bilateral legs I70.203 and [...] (ICD-10 - M79.675) 11/14/2023 Unspecified atherosclerosis of [place] arteries of extremities, bilateral legs (ICD-10 - [...] OTC and prescription treatments. Unspecified atherosclerosis of [place] arteries of extremities, bilateral legs Patient educated [...] * TJ GARNERVIKADOB: 4 (78 yo F)Acc No.[id number]:11/14/2023 Patient: MADISON BENEDICT Provider: Silvia JEREZ :1945 A ge:78 Y S ex:Female Date:11/14/2023 Address:[address] [place], [place] [id number] Subjective: * Chief Complaints: * 1 . [...] Patient denies c hest pain, history of ME, irregular heartbeat. M usculoskeletal: Patient denies a [...] M79.675 6 . U nspecified atherosclerosis of [place] arteries of extremities, bilateral legs - I70.203 [...] were emphasized. 3. U nspecified atherosclerosis of [place] arteries of extremities, bilateral legs Notes: Patient [...] Information: * Visit Code: * Procedure Codes: 32166 DEBRIDE NAIL, 6 OR MORE. Modifiers: Q8 * Sign off status: Completed true * Provider: Silvia JEREZ Date: 0 11/14/2023 Generated for Nancy bruno/Ehsan/Regine on: 0 11/12/2024 11:10 AM CDT History and Physical Notes * HPI (History [...]
--- OUTSIDE RECORDS SUMMARY | 2024-11-12 11:10 | XMS_ITS | Patient Health Record ---
Author Organization [facility] Address [address] [place], [place] [address] Care Team Providers Care Set Up Mechanic Coating Machines Name Role Phone MERI MI Unavailable [phone] Lasha Mahmood Unavailable Unavailable Allergies Allergen (clinical [...] 11/14/2023 Encounters Encounter Location Date Provider Diagnosis [place] [address], [place] [id number] 11/14/2023 MI JEREZ Other hammer toe(s) (acquired), right foot M20.41 ; Tinea unguium B35.1 ; Other hammer toe(s) (acquired), left foot M20.42 ; Pain in right toe(s) M79.674 ; Pain in left toe(s) M79.675 ; Unspecified atherosclerosis of [place] arteries of extremities, bilateral legs I70.203 and [...] (ICD-10 - M79.675) 11/14/2023 Unspecified atherosclerosis of [place] arteries of extremities, bilateral legs (ICD-10 - [...] Date Coverage End Date Medicare Part B [place] [address] [place] [address] [id number] MADISON GARNER Self - patient is the insured [facility] ([facility]) ATTN CLAIMS [address] [place] [address] [id number] MADISON GARNER Self - patient is the insured Medical (General) History Medical History History ICD Code kidney stones neuropathy Arthritis Bladder infections Diabetic Blood clots
== END 2024-11-12 09:50 | disposition home or self-care (01) ==
LOC: CHSLAB 09:50
PROVIDERS: PCP Family Medicine; Visit Provider Family Medicine
DX: Z79.01 Long term (current) use of anticoagulants (principal)
CPT/HCPCS: 36415; 85610

== ENCOUNTER 2024-11-13 16:56 | Inpatient (IN) | payer MEDICARE, SELFPAY ==
[2024-11-13] VITALS (43 sets, daily range): BP systolic 82–126; BP diastolic 36–77; PULSE 84–100; RESP 11–24; TEMP 36.2–36.4; O2SAT 93–100
--- NOTE | ~2024-11-13 | XR_ITS ---
XR chest 1V portable Ordering provider: Tee Otero MD History: 79 years Female with . CHF, syncope . Comparison: October 21, 2024 FINDINGS: MEDIASTINUM: The cardiac silhouette is slightly enlarged. Congestive renate. LUNGS: No effusions or pneumothorax. Bilateral interstitial thickening suggestive of pneumonitis vers us edema. Clinical correlation advised. OTHER: No free air under the diaphragm. Degenerative changes of the spine. IMPRESSION: Cardiomegaly with congestive renate. Bilateral interstitial thickening suggestive of pulmonary edema ve rsus pneumonitis. Clinical correlation advised. Reviewed, dictated and finalized at location A. IMPRESSION: Cardiomegaly with congestive renate. Bilateral interstitial thickening suggestive of pulmonary edema versus pneumonitis. Clinical correlation advised.
--- NOTE | ~2024-11-13 | CT_ITS ---
CTA chest PE abdomen pel Ordering provider: Tee Otero MD History: . hx DVT, syncope, plus LLQ pain . Comparison: None. Technique: CT angiogram chest was performed following timed intravenous injection of contrast. Thin s lice axial images and reformatted coronal images were obtained. Three dimensional reformatted images of the chest were also obtained using a FTRANS[employer] workstation. Also, CT of the abdomen and pelvis was pe rformed with IV contrast. . Automated exposure control and iterative reconstruction technique were e mployed. The dose-length product was 2509.67 mGy-cm. 100 mL Omnipaque 350 was given IV. FINDINGS: CHEST: --PULMONARY ARTERIES: No definite pulmonary embolus. Streaking artifacts are seen with possibility of subsegmental emboli in the right lower lobe are not excluded although less likely. --VISUALIZED THORACIC INLET: Right thyroid nodule is seen extending into the superior mediastinum and measures 2.2x 2.7 cm. --MEDIASTINUM: Aorta/coronary arteries: The thoracic aorta is normal. Heart/other: The heart is slightly enlarged. Lymph nodes: No mediastinal or hilar adenopathy. Right paratracheal lymph node is seen measuring 1.2 cm. --LUNGS: Bilateral groundglass appearance suggestive of atelectasis versus pneumonia versus edema. Clinical co rrelation advised. No pulmonary nodules or masses. No effusions. No pneumothorax. Minimal atelectatic changes in the lung bases posteriorly. --MUSCULOSKELETAL: Bones: Age appropriate degenerative changes of the spine. Superficial soft tissues: The superficial soft tissues are normal. ABDOMEN/PELVIS: --MUSCULOSKELETAL: Superficial soft tissues: The superficial soft tissues are normal. Bones: Age appropriate degenerative changes of the spine. Bilateral sacroiliacs. Atrophic psoas muscl es. Levoscoliosis. Minimal anterolisthesis at the level of L4-L5. --UPPER ABDOMINAL ORGANS: Liver: Normal. Gallbladder: Status post cholecystectomy. Spleen: Normal. Stomach/duodenum: Sliding hiatus hernia. Pancreas: Normal. Adrenals: Left adrenal adenoma measuring 2 cm. Further evaluation with dynamic CT or MRI is advised. Kidneys: Normal. --PELVIC ORGANS: The bladder is normal. No bladder stones. --BOWEL AND MESENTERY: Colon: No evidence of diverticulitis.. No evidence of appendicitis. Small Bowel: Normal. No obstruction. Peritoneum/mesentery: No free air or free fluid. No mesenteric lymphadenopathy. --RETROPERITONEUM: Mild atheromatous disease of the abdominal aorta. No retroperitoneal lymphadenop athy. IMPRESSION: CHEST: 1. No definite pulmonary embolism. Filling defects in the right lower lobe branches are most likely artifactual. 2. Bilateral groundglass appearance suggestive of atelectasis versus pneumonia versus edema. 3. A right thyroid nodule. ABDOMEN/PELVIS: 1. No evidence of appendicitis, diverticulitis or intestinal obstruction. 2. Sliding hiatus hernia. Reviewed, dictated and finalized at location A. IMPRESSION: CHEST: 1. No definite pulmonary embolism. Filling defects in the right lower lobe bra nches are most likely artifactual. 2. Bilateral groundglass appearance suggestive of atelectasis versus pneumonia versus edema. 3. A right thyroid nodule. ABDOMEN/PELVIS: 1. No evidence of appendicitis, diverticulitis or intestinal obstruction. 2. Sliding hiatus hernia.
--- NOTE | ~2024-11-13 | CT_ITS ---
CT brain wo con Ordering provider: Tee Otero MD History: 79 years Female with . Syncope . Comparison: October 21, 2024 Technique: CT of the head without contrast. Radiation reduction technique utilized.The dose-length product was 605.33 mGy-cm. FINDINGS: BRAIN PARENCHYMA AND CSF SPACES: Mild leukoaraiosis and diffuse cortical atrophy. Mild atheromatous d isease. The No midline shift, mass effect or hemorrhage. The brain parenchyma and CSF spaces are oth erwise normal. VISUALIZED PARANASAL SINUSES: Right maxillary and sphenoid sinus disease. Otherwise, Well aerated. MASTOIDS: Well aerated. BONES: The bones appear intact. SOFT TISSUES: Visualized nasopharynx is normal. Superficial soft tissues are normal. IMPRESSION: No acute intracranial findings. Reviewed, dictated and finalized at location A.
--- NOTE | 2024-11-13 17:05 | ECG_ITS ---
Test Date: 2024-11-13 17:07:52 Measurements Intervals [place] Rate: 85 P: -65 TX: 280 QRS: -61 QRSD: 149 T: 12 QT: 381 QTc: 454 Interpretive Statements SINUS RHYTHM WITH FIRST DEGREE AV BLOCK WITH OCCASIONAL SUPRAVENTRICULAR PREMATURE COMPLEXES RIGHT BUNDLE BRANCH BLOCK LEFT ANTERIOR FASCICULAR BLOCK Electronically Signed On 11-15-2024 13:52:24 CDT by Bud Thakkar D.O
--- NOTE | 2024-11-13 17:13 | ED.AMS ---
HPI - Altered Mental Status General Chief Complaint: Altered Mental Status Stated Complaint: AMS Time Seen by Provider: 11/13/24 17:00 History of Present Illness HPI narrative: 79-year-old female with complex past medical history including congestive heart failure, hypertension, diabetes, DVT on Coumadin. She was recently admitted to the hospital for urinary tract infection with sepsis. She was at her facility today when she had a witnessed syncopal/unresponsive event while she was on the phone with her son. Patient was minimally responsive to painful stimuli upon EMS arrival, found to be hypoxic, hypotensive and bradycardic in the 30s. Given 100 mcg of push dose epinephrine by EMS with improvement in vitals. Patient presently is awake alert oriented x4. She is answering all questions appropriately. States that she feels off but not able to describe any sensation of chest pain, nausea, vomiting, abdominal pain or back pain. She is requiring 2 L oxygen right now. Blood pressure 96/53, pulse 85, respiratory 16. Brought back in the room 14. For medical evaluation and resuscitation at this time. Related Data Home Medications ?Medication ?Instructions ?Recorded ?Confirmed ?Last Taken ?Type metformin 500 mg tablet 500 mg PO BID 09/18/24 10/21/24 Unknown History pantoprazole 40 mg tablet,delayed 40 mg PO DAILY 09/18/24 10/21/24 Unknown History release pioglitazone 30 mg tablet 30 mg PO DAILY 09/18/24 10/21/24 Unknown History warfarin 1 mg tablet 2 mg PO DAILY 09/18/24 10/21/24 Unknown History warfarin 5 mg tablet 5 mg PO DAILY 09/18/24 10/21/24 Unknown History acetaminophen 500 mg tablet 500 mg PO Q6H PRN fever or pain 10/21/24 10/21/24 Unknown History (Acetaminophen Extra Strength) atorvastatin 20 mg tablet 20 mg PO HS 10/21/24 10/21/24 Unknown History gabapentin 100 mg capsule 300 mg PO TID 10/21/24 10/21/24 Unknown History polyethylene glycol 3350 17 gram 17 g PO DAILY PRN constipation 10/21/24 10/21/24 Unknown History oral powder packet (Miralax) sennosides 8.6 mg tablet (Senna 8.6 mg PO Q12H PRN constipation 10/21/24 10/21/24 Unknown History Lax) Allergies Allergy/AdvReac Type Severity Reaction Status Date / Time Iodinated Contrast Media Allergy Intermediate Rash Verified 11/13/24 17:06 Review of Systems Review of Systems: As reviewed above in [facility] Past Medical History Medical History Diabetic polyneuropathy Type 2 diabetes mellitus Morbid obesity with BMI of 45.0-49.9, adult Chronic kidney disease, stage 3a Diastolic heart failure GERD without esophagitis H/O TIA (transient ischemic attack) and stroke H/O deep venous thrombosis Hyperlipidemia Essential (primary) hypertension Surgical History Surgical History History of hysterectomy S/P cholecystectomy Family History Family History Mother Family history of migraine headaches Family history of arthritis Family history of Alzheimer's disease Father Family history of cataracts Family history of diabetes mellitus in first degree relative Family history of congestive heart failure Family history of heart disease in male family member before age 55 Family history of hearing loss Sibling Family history of diabetes mellitus in first degree relative Other Diabetes mellitus Social History Social History Social History: She is (for over 50 years) and lives by herself in a small home on her son's property. She has 2 sons 1 of which is living in a long-term due to blindness an intellectual disability associated with extreme prematurity. She has a daughter who is chronically ill and has had a prior cardiac arrest but is still living. Then her youngest son planned is relatively healthy and only the property she lives on. She used to smoke about a quarter pack of cigarettes per day for about 20 years but quit when she was in her 40s. She used to drink an alcoholic beverage every couple of weeks but has not done so in many years. She denies history of illicit substance use. Code status: DNR/DNI (per patient request) Surrogate decision maker: Dmitry (son) Smoking status: Never smoker Tobacco type: cigarettes Second hand tobacco smoke exposure: No Smoking end date: 09/02/82 Additional smoking assessment comments: patient smoked in her 30's Alcohol intake: never Substance use: never Substance use type: does not use Do You Feel Safe in your Home?: Yes Lack of Transportation: No Lack of Food: Never True Current Housing: I Have Housing Concerned About Future Housing: No Difficulty Paying Gas/Electric Bills: No Difficulty Paying for Meds: No Currently Unemployed: No Education: Decline to Answer Difficulty w/ Childcare or Family Care: No Living arrangements: alone Occupation/Education: retired Additional occupation/education comments: [employer] Gender identity (if verbalized by the patient): Female Sexual Orientation (if Verbalized by the Patient): Straight or Heterosexual Spiritual care concerns: No Agree to blood products: Yes Exam Narrative: GENERAL: Chronically ill-appearing, not any acute distress, answers all questions appropriately. HEAD: [Normocephalic, atraumatic.] EYES: [PERRLA and EOMI.] ENT: Nares clear, no rhinorrhea or epistaxis. Mucous membranes moist. NECK: Supple. CHEST: Mild coarse bibasilar breath sounds but no distress or tachypnea noted. HEART: [Regular rate and rhythm]. No murmur heard. [Normal peripheral pulses.] ABDOMEN: [Soft, nondistended], [nontender], [No rigidity or guarding] EXTREMITIES: Normal range of motion. 2+ edema SKIN: Warm, dry, no rash. NEURO: [No focal deficits]. Alert and oriented [x3.] PSYCH: [Normal mood and affect.] Course Vital Signs Vital signs: Vital Signs Temperature 36.4 C L 11/13/24 16:53 Pulse Rate 85 11/13/24 16:53 Respiratory Rate 16 11/13/24 16:53 Blood Pressure 96/43 L 11/13/24 16:53 Pulse Oximetry 100 11/13/24 16:53 Oxygen Delivery Nasal Cannula 11/13/24 16:53 Oxygen Flow Rate 5 11/13/24 16:53 Temperature 36.2 C L 11/13/24 17:10 Pulse Rate 93 11/13/24 18:57 Respiratory Rate 20 11/13/24 18:57 Blood Pressure 123/68 11/13/24 21:29 Pulse Oximetry 96 11/13/24 18:57 Oxygen Delivery Nasal Cannula 11/13/24 17:08 Oxygen Flow Rate 2 11/13/24 17:08 MDM - Altered Mental Status MDM Narrative Medical decision making narrative: 79-year-old female with history of congestive heart failure, type 2 diabetes, hypertension, DVT on Coumadin. Patient presents today after a unresponsive episode where she was also hypotensive bradycardic and hypoxic. EMS arrived and provided her push dose epinephrine and were concerned that she was in the 3rd degree AV block on initial monitor. Twelve lead EKG after being situated shows atrial fibrillation and she was transported to the hospital for evaluation. Presently she is back to her normal baseline mentation, not any acute distress. Given her congestive heart failure history and reported bradycardia and hypotension, hypoxia suspicion that she did go into a cardiac dysrhythmia potentially third-degree block versus ventricular tachycardia dysrhythmia. Presently she appears to be normal sinus rhythm with a first-degree AV block on the EKG during triage. Blood pressure 96/43, no tachycardia or tachypnea. Saturating 96% on 2 L nasal cannula. Cardiac workup was ordered including troponin, EKG, chest x-ray, CBC, CMP, PT, PTT. Placed on surveillance system monitor and pulse oximetry and was frequently re-evaluated and observed. Patient's blood pressure improved after fluid boluses and albumin administration. She had low albumin and appears to be clinically dehydrated. Blood pressure currently 123/68. Currently saturating 96% on 2 L nasal cannula. She was placed on surveillance system monitor and telemetry without any recurrence of any dysrhythmia or ectopy. Appear to be first-degree AV block on the monitor and EKG without any concerns for higher degree blocks at this time. Her workup showed no leukocytosis. Anemia around her baseline at 8.6. Platelets are normal. Electrolytes show some dehydration with elevated BUN and elevated potassium but not severe. Creatinine about her normal CKD. Normal glucose, mildly elevated lactate 2.2. Normal LFTs. Negative troponin. BNP only mildly elevated and much improved from her prior baseline. TSH elevated 6.4. Straight catheterization ordered, urinalysis sent and pending. Rocephin ordered to cover for UTI in the setting of elevated lactate. Chest x-ray shows pneumonitis versus pulmonary edema but she appears clinically dry, could potentially be 3rd spacing secondary to low albumin. CT head shows no acute intracranial findings. Patient was frequently re-evaluated. She did mention that she was having some abdominal cramping as well as having the oxygen requirement at this time with history of DVT. CT angiography of the chest abdomen pelvis was ordered. CT shows no evidence of PE, artifactual filling defects, bilateral ground-glass opacities suspicious for edema over pneumonia. No evidence of appendicitis diverticulitis obstruction or hiatal hernia. EKG shows a right bundle branch block, first-degree AV block but no ST segment elevations, depressions or inversions. Patient is hemodynamically stable after fluid resuscitation and can be safely admitted to the hospital at this time. I discussed with the hospitalist plan of care and she was accepted to an IMU bed at this time for continued evaluation and treatment. Medical Records Attestation: I reviewed the patient's medical records. Lab Data Attestation: I reviewed the patient's lab results. 11/13/24 18:14 11/13/24 18:14 Labs: Lab Results 11/13/24 11/13/24 Range/Units 18:14 22:54 WBC 7.6 (4.5-10.0) K/mm3 RBC 2.71 L (4.2-5.4) M/mm3 Hgb 8.6 L (12.0-15.0) g/dL Hct 27.8 L (37.0-47.0) % MCV 102.6 H (80-100) fl MCH 31.7 (26-34) pg MCHC 30.9 L (32-36) g/dl RDW 17.0 H (11.5-14.5) % Plt Count 205 (150-375) k/mm3 MPV 11.5 H (7.4-10.4) fl Immature Gran % (Auto) 0.4 (0-0.5) % Neut % (Auto) 66.7 (45.5-73.1) % Lymph % (Auto) 19.7 (18.3-44.2) % [place] % (Auto) 8.0 (2.6-8.5) % Eos % (Auto) 4.3 (0-4.4) % Baso % (Auto) 0.9 (0.2-1.2) % Lymph # (Auto) 1.50 (0.9-3.2) K/mm3 [place] # (Auto) 0.6 (0.1-0.6) K/mm3 Eos # (Auto) 0.3 (0-0.3) K/mm3 Baso # (Auto) 0.1 (0.0-0.1) K/mm3 Abs Immat Gran (auto) 0.03 (0.00-0.031) K/mm3 Absolute Neuts (auto) 5.1 (1.3-6.7) K/mm3 Absolute Nucleated RBC 0.000 (0.0-0.012) K/mm3 Nucleated RBC % 0.0 (0.0-0.2) % PT 32.2 H (11.1-14.7) Seconds INR 3.0 APTT 70.8 H (22.3-36.8) Seconds Sodium 135 L (137-145) mmol/L Potassium 5.4 H (3.4-5.0) mmol/L Chloride 102 (98-107) mmol/L Carbon Dioxide 26 (22-30) mmol/L Anion Gap 7 (4-12) mmol/L BUN 30 H D (7-17) mg/dL Creatinine 1.26 H (0.7-1.0) mg/dL Estim Creat Clear Calc 41 ml/min Estimated GFR 41 L (59 - ) Glucose 136 H (65-110) mg/dL Lactic Acid 2.2 H (0.7-2.0) mmol/L Calcium 9.1 (8.4-10.2) mg/dL Total Bilirubin 0.4 (0.2-1.3) mg/dL AST 17 (14-36) U/L ALT 15 (6-35) U/L Alkaline Phosphatase 76 (38-126) U/L Troponin I < 0.012 (0.000-0.034) ng/mL NT-Pro-B Natriuret Pep 784 H (19.9-100) pg/mL Total Protein 6.0 L (6.3-8.2) g/dL Albumin 3.1 L (3.5-5.1) g/dL TSH 6.460 H (0.465-4.680) uIU/mL Urine Color Pending Urine Appearance Pending Urine pH Pending Ur Specific [place] Pending Urine Protein Pending Urine Glucose (UA) Pending Urine Ketones Pending Ur Blood (Man) Pending Urine Nitrate Pending Urine Bilirubin Pending Urine Urobilinogen Pending Leukocyte Esterase Rfl Pending Imaging Data Attestation: I personally reviewed and interpreted this imaging study as follows: My impression: Impressions Chest X-Ray 11/13/24 18:00 IMPRESSION: Cardiomegaly with congestive renate. Bilateral interstitial thickening suggestive of pulmonary edema versus pneumonitis. Clinical correlation advised. Head CT 11/13/24 18:40 IMPRESSION: No acute intracranial findings. Chest/Abdomen/Pelvis CTA 11/13/24 21:05 IMPRESSION: CHEST: 1. No definite pulmonary embolism. Filling defects in the right lower lobe branches are most likely artifactual. 2. Bilateral groundglass appearance suggestive of atelectasis versus pneumonia versus edema. 3. A right thyroid nodule. ABDOMEN/PELVIS: 1. No evidence of appendicitis, diverticulitis or intestinal obstruction. 2. Sliding hiatus hernia. Critical Care Time Critical Care Time Critical Care Time: Yes Total Critical Care Time: 35 Discharge Plan Discharge Clinical Impression: Cardiac related syncope, History of deep vein thrombosis, Hypoxia, Hypoalbuminemia Patient Disposition: Still a Patient Condition: Stable Patient Language: [place] Prescriptions: No Action sennosides [Senna Lax] 8.6 mg tablet 8.6 mg PO Q12H PRN (Reason: constipation) Rx Instructions: Give 2 tabs polyethylene glycol 3350 [Miralax] 17 gram powder in packet 17 g PO DAILY PRN (Reason: constipation) acetaminophen [Acetaminophen Extra Strength] 500 mg tablet 500 mg PO Q6H PRN (Reason: fever or pain) Rx Instructions: Take 2 tabs to make 1000 mg PRN atorvastatin 20 mg Tablet 20 mg PO HS gabapentin 100 mg Capsule 300 mg PO TID tamsulosin 0.4 mg Capsule 0.4 mg PO QAM Qty: 30 0RF doxycycline hyclate 100 mg Tablet 100 mg PO Q12HR Qty: 25 0RF amoxicillin-pot clavulanate 875-125 mg tablet 1 tablet PO Q12H Qty: 24 0RF diclofenac sodium [Voltaren Arthritis Pain] 1 % gel 4 g topical QID Qty: 100 0RF Rx Instructions: apply to single knee, ankle, foot; for foot includes sole/toes/top of foot furosemide [Lasix] 20 mg tablet 20 mg PO DAILY Qty: 30 0RF metformin 500 mg tablet 500 mg PO BID pantoprazole 40 mg tablet,delayed release (DR/EC) 40 mg PO DAILY pioglitazone 30 mg tablet 30 mg PO DAILY warfarin 5 mg tablet 5 mg PO DAILY warfarin 1 mg tablet 2 mg PO DAILY cyclobenzaprine 10 mg Tablet 10 mg PO Q12H PRN (Reason: Muscle Spasm, Neck pain) Qty: 30 0RF Eliquis 5 mg Tablet 5 mg PO Q12HR Qty: 60 0RF lisinopril 5 mg Tablet 5 mg PO QAM Qty: 20 0RF Follow-up/Referrals: Lasha Mahmood MD [Primary Care Provider] - Time of Disposition: 22:53
--- OUTSIDE RECORDS SUMMARY | 2024-11-13 17:41 | XMS_ITS | Patient Health Record ---
Author Organization [facility] Address [address] [place], [place] [address] Care Team Providers Care Herb Counselor Name Role Phone MERI MI Unavailable [phone] Lasha Mahmood Unavailable Unavailable Allergies Allergen (clinical [...] 11/14/2023 Encounters Encounter Location Date Provider Diagnosis [place] [address] [place], [place] [id number] 11/14/2023 MI JEREZ Other hammer toe(s) (acquired), right foot M20.41 ; Tinea unguium B35.1 ; Other hammer toe(s) (acquired), left foot M20.42 ; Pain in right toe(s) M79.674 ; Pain in left toe(s) M79.675 ; Unspecified atherosclerosis of [place] arteries of extremities, bilateral legs I70.203 and [...] (ICD-10 - M79.675) 11/14/[address] [place] [place] arteries of extremities, bilateral legs (ICD-10 - [...] Date Coverage End Date Medicare Part B [place] [address] [place] [address] [id number] MADISON GARNER Self - patient is the insured [facility] ([facility]) ATTN CLAIMS [address] [place] [address] [id number] MADISON GARNER Self - patient is the insured Medical (General) History Medical History History ICD Code kidney stones neuropathy Arthritis Bladder infections Diabetic Blood clots
--- OUTSIDE RECORDS SUMMARY | 2024-11-13 17:41 | XMS_ITS ---
Author Organization [facility] Address [address] [place], [place] [address] Care Team Providers Care Aircraft Seat Upholsterer Name Role Phone MI JEREZ Unavailable [phone] Lasha Mahmood Unavailable Unavailable REASON FOR VISIT *General care Encounters Encounter Location Date Provider Diagnosis [address] [id number] 01/16/2024 MI JEREZ Plan Of Treatment No Information Progress Notes * MADISON GARNERDOB: 4 (79 yo F)Acc No.[id number]:01/16/2024 Patient: Deshaun ESTRADAMADISON Provider: Silvia JEREZ :1945 A ge:78 Y S ex:Female Date:01/16/2024 Address:[address] [place], [place] [address] Subjective: * Chief Complaints: * 1 . *General care. * Medical History: Objective: * Vitals: Assessment: Plan: * Treatment: * Billing Information: * Visit Code: * Procedure Codes: * Electronic signature of FLOYD JEREZ DPM on 11/13/2024 at 05:41 PM CDT Sign off status: Pending * Provider: Silvia JEREZ Date: 0 01/16/2024 Generated for Vanessai ng/Fapriceg/eTransmitting on: 0 11/13/2024 05:41 PM CDT
--- OUTSIDE RECORDS SUMMARY | 2024-11-13 17:41 | XMS_ITS | Clinical Summary ---
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 Allergies No known active allergies Medications [...] without nonketotic hyperglycemic-hyper osmolar coma (NKHHC) ([facility]) Per sliding scale 0-149 = 0 [...] hyperosmolarity without nonketotic hyperglycemic-hyper osmolar coma (NKHHC) ([facility]) Take 1 tablet (500 mg total) [...] with hyperosmolarity without nonketotic hyperglycemic-hyperosmolar coma (NKHHC) ([facility]) 08/17/2021 Personal history of noncompl iance [...] Dates Next Due Influenza Adult (Generic) 08/15/2021,03/2017,05/29/2016,2014 [employer]) COVID-19 AD26 VACCINE 0.5 ML IM SUSP [...] on file Legal Sex Female 2:51 PM [facility] Gender Identity Not on file Sexual Orientation Not on file Last Filed Vital Signs Vital Sign Reading Time Taken Comments Blood Pressure 122/45 09/13/2021 8:55 AM [facility] Pulse 76 09/13/2021 8:55 AM [facility] Temperature 36.7 C (98 F) 09/13/2021 8:55 AM [facility] Respiratory Rate 20 09/13/2021 8:55 AM [facility] Oxygen Saturation 97% 09/13/2021 8:55 AM [facility] Inhaled Oxygen Concentration - - Weight 103 kg (227 lb) 09/13/2021 8:55 AM [facility] Height 157.5 cm (5' 2 ) 07/15/2021 3:08 PM [facility] Body Mass Index 41.52 07/15/2021 3:08 PM [facility] Plan of Treatment Health Maintenance Due Date [...] home safety measures General No Theresa Belle 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 may give incorrect results with this test. ESTIMATED AVG GLUCOSE 190 mg/dL [facility] Comment: (This value is a calculated estimate of the mean blood glucose over the last 60 days based on the patient's HgbA1c value. 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
--- OUTSIDE RECORDS SUMMARY | 2024-11-13 17:41 | XMS_ITS ---
Author Organization [facility] Address [address] [place], [place] [id number] Care Team Providers Care Lead Ios Developer Name Role Phone MI JEREZ Unavailable [phone] Lasha Mahmood Unavailable Unavailable REASON FOR VISIT *General care Encounters Encounter Location Date Provider Diagnosis [address], [place] [id number] 08/08/2023 MI JEREZ Plan Of Treatment No Information Progress Notes * MADISON GARNERDOB: 4 (79 yo F)Acc No.[id number]:08/08/2023 Patient: MADISON BENEDICT Provider: Silvia JEREZ :1945 A ge:77 Y S ex:Female Date:08/08/2023 Address:[address] Subjective: * Chief Complaints: * 1 . *General care. * Medical History: Objective: * Vitals: Assessment: Plan: * Treatment: * Billing Information: * Visit Code: * Procedure Codes: * Electronic signature of FLOYD JEREZ DPM on 11/13/2024 at 05:41 PM CDT Sign off status: Pending * Provider: Silvia JEREZ Date: 1 10/09/2022 Generated for Vanessai ng/Fapriceg/eTransmitting on: 0 11/13/2024 05:41 PM CDT
--- OUTSIDE RECORDS SUMMARY | 2024-11-13 17:42 | XMS_ITS ---
Author Organization [facility] Address [address] [place], [place] [id number] Care Team Providers Care School Age Program Teacher Name Role Phone MERI MI Unavailable [phone] Lasha Mahmood Unavailable Unavailable Allergies Allergen (clinical [...] 11/14/2023 Encounters Encounter Location Date Provider Diagnosis [address] [place], [place] [id number] 11/14/2023 MI JEREZ Other hammer toe(s) (acquired), right foot M20.41 ; Tinea unguium B35.1 ; Other hammer toe(s) (acquired), left foot M20.42 ; Pain in right toe(s) M79.674 ; Pain in left toe(s) M79.675 ; Unspecified atherosclerosis of [place] arteries of extremities, bilateral legs I70.203 and [...] (ICD-10 - M79.675) 11/14/2023 Unspecified atherosclerosis of [place] arteries of extremities, bilateral legs (ICD-10 - [...] OTC and prescription treatments. Unspecified atherosclerosis of [place] arteries of extremities, bilateral legs Patient educated [...] * TJ GARNERVIKADOB: 4 (78 yo F)Acc No.[id number]:11/14/2023 Patient: MADISON BENEDICT Provider: Silvia JEREZ :1945 A ge:78 Y S ex:Female Date:11/14/2023 Address:[address] [place], [place] [id number] Subjective: * Chief Complaints: * 1 . [...] Patient denies c hest pain, history of [place], irregular heartbeat. M usculoskeletal: Patient denies a [...] M79.675 6 . U nspecified atherosclerosis of [place] arteries of extremities, bilateral legs - I70.203 [...] were emphasized. 3. U nspecified atherosclerosis of [place] arteries of extremities, bilateral legs Notes: Patient [...] Information: * Visit Code: * Procedure Codes: 95879 DEBRIDE NAIL, 6 OR MORE. Modifiers: Q8 * Sign off status: Completed true * Provider: Silvia JEREZ Date: 11/14/2023 Generated for Nancy bruno/Ehsan/Regine on: 11/13/2024 05:41 PM CDT History and Physical Notes * HPI [...]
--- NOTE | 2024-11-13 18:00 | PC.NURSE ---
3 ED RN's and technologies division chair attempted blood draw without success. Phlebotomy called.
[2024-11-13 18:19] LABS: Basophils Absolute Auto 0.1 K/mm3 (0.0-0.1); Basophils Percent Auto 0.9 % (0.2-1.2); Eosinophils Absolute Auto 0.3 K/mm3 (0-0.3); Eosinophils Percent Auto 4.3 % (0-4.4); Hematocrit 27.8 % (37.0-47.0); Hemoglobin 8.6 g/dL (12.0-15.0); Immature Granulocyte Absolute 0.03 K/mm3 (0.00-0.031); Immature Granulocyte Percent A 0.4 % (0-0.5); Lymphocytes Percent Auto 19.7 % (18.3-44.2); Mean Corpuscular HGB Conc 30.9 g/dl (32-36); Mean Corpuscular Hemoglobin 31.7 pg (26-34); Mean Corpuscular Volume 102.6 fl (80-100); Mean Platelet Volume 11.5 fl (7.4-10.4); Monocytes Absolute Auto 0.6 K/mm3 (0.1-0.6); Neutrophils Absolute Auto 5.1 K/mm3 (1.3-6.7); Neutrophils Percent Auto 66.7 % (45.5-73.1); Platelet Count Result 205 k/mm3 (150-375); Red Blood Count 2.71 M/mm3 (4.2-5.4); White Blood Count 7.6 K/mm3 (4.5-10.0)
[2024-11-13 18:36] LABS: Prothrombin Time 32.2 Seconds (11.1-14.7)
[2024-11-13 18:37] LABS: Lactic Acid Reflex 2.2 mmol/L (0.7-2.0)
[2024-11-13 18:38] LABS: Partial Thromboplastin Time 70.8 Seconds (22.3-36.8)
[2024-11-13 18:54] LABS: Alanine Aminotransferase 15 U/L (6-35); Albumin Level 3.1 g/dL (3.5-5.1); Alkaline Phosphatase 76 U/L (38-126); Anion Gap 7 mmol/L (4-12); Aspartate Amino Transferase 17 U/L (14-36); Bilirubin,Total 0.4 mg/dL (0.2-1.3); Blood Urea Nitrogen 30 mg/dL (7-17); Calcium 9.1 mg/dL (8.4-10.2); Carbon Dioxide 26 mmol/L (22-30); Chloride 102 mmol/L (98-107); Estimated CRCL calculation 41 ml/min; Estimated Glomerular Filt Rate 41; Glucose 136 mg/dL (65-110); NT Pro B Type Natriuretic Pept 784 pg/mL (19.9-100); Potassium 5.4 mmol/L (3.4-5.0); Sodium 135 mmol/L (137-145); Troponin I < 0.012 ng/mL (0.000-0.034)
[2024-11-13 20:17] LABS: Reflex Lactic Acid Yes or No Add Lactic
[2024-11-13] MEDS: SODIUM CHLORIDE 0.9% IV 1,000 ML 999 ML IV CONT ×2 (21:29→21:30)
[2024-11-13] MEDS: ALBUMIN HUMAN 25% 25 GM/100 ML 100 ML IVPB (21:48)
[2024-11-13 23:10] LABS: Add Urine Microscopic? YES; Appearance Urine Clear (Clear); Bacteria Urine None Seen /hpf; Bilirubin Urine Negative (Negative); Blood Urine Negative (Negative); Color Urine Yellow (Yellow); Glucose Urine UA Negative (Negative); Ketones Urine Negative (Negative); Leukocyte Esterase Ur Negative LEU/UL (Negative); Nitrate Urine Negative (Negative); Non Pathogenic Casts 0-2; Protein Urine Trace mg/dL (Negative); RBC Urine 0-2 /hpf (0-2); Specific Grav Ur 1.017 (1.001-1.035); Squamous Epithelial Cell Urine None Seen /hpf (Few); Urobilinogen Urine 0.2 mg/dL (<2.0); WBC Urine 0-5 /hpf (0-3)
[2024-11-14] VITALS (24 sets, daily range): BP systolic 102–132; BP diastolic 40–78; PULSE 79–96; RESP 12–24; TEMP 36.4–36.9; O2SAT 92–100; BMI 50.3
[2024-11-14] MEDS: ACETAMINOPHEN 325 MG TABLET 650 MG PO (00:59)
[2024-11-14] MEDS: ONDANSETRON INJ 4 MG/2 ML VIAL IV PUSH (01:06)
[2024-11-14 03:03] LABS: Lactic Acid 1.1 mmol/L (0.7-2.0)
[2024-11-14] MEDS: LACTATED RINGERS 1,000 ML 75 ML IV CONT (03:18)
--- NOTE | 2024-11-14 04:56 | P.HP_ITS ---
H&P: HPI History of Present Illness Date/Time: 11/14/24 04:56 Chief Complaint: Unresponsive Narrative: 79-year-old female with past medical history of DVTs, grade 1 diastolic dysfunction with preserved ejection fraction, rheumatoid arthritis, chronic kidney disease stage 3, morbid obesity and type 2 diabetes mellitus among other comorbidities who presented to the ER from acute rehab facility via EMS due to unresponsive episode. The patient does not remember exactly why she came to the hospital. The patient was alert oriented person, place and time but had delayed responses compared to prior interviews with the patient. She does not remember exactly why she was brought to the hospital. On EMS arrival to the facility she was noted to be bradycardic and hypotensive. The patient received IV push of epinephrine in the field due to heart rate of 30. The patient's oxygen saturation was also noted to be 70s on room air and she was placed on 5 L in the field. When she arrived to the ER her oxygen saturation was normal but when she falls asleep it is noted that the patient does have episodes of apnea at the time my evaluation. Patient denies any known history of obstructive sleep apnea. She denies any chest pain or palpitations. In the ER she reported that she was feeling ?cookoo? and felt worse during physical therapy just prior to this episode happening. She did not have any associated nausea, diaphoresis or chest pain. She has had several episodes of short sinus pauses 2-3 seconds since presentation to the hospital but has not had any high-degree heart block noted. She had a recent echocardiogram in September of 2024. Review of Systems 2 Review of Systems: 12 systems were reviewed with pertinent positives and negatives per HPI. Except as documented in the HPI, all other systems were reviewed and are negative. [facility] Past Medical History Medical History Diabetic polyneuropathy Type 2 diabetes mellitus Morbid obesity with BMI of 45.0-49.9, adult Chronic kidney disease, stage 3a Diastolic heart failure GERD without esophagitis H/O TIA (transient ischemic attack) and stroke H/O deep venous thrombosis Hyperlipidemia Essential (primary) hypertension Surgical History Surgical History History of hysterectomy S/P cholecystectomy Family History Family History Mother Family history of migraine headaches Family history of arthritis Family history of Alzheimer's disease Father Family history of cataracts Family history of diabetes mellitus in first degree relative Family history of congestive heart failure Family history of heart disease in male family member before age 55 Family history of hearing loss Sibling Family history of diabetes mellitus in first degree relative Other Diabetes mellitus Social History Social History (Updated 11/14/24 @ 22:24 by Johanna Jensen DO) Social History: She is (for over 50 years) and lives by herself in a small home on her son's property however after her hospitalization September 28, 2024 she was discharged to acute rehab. She has 2 sons 1 of which is living in a senior living due to blindness an intellectual disability associated with extreme prematurity. She has a daughter who is chronically ill and has had a prior cardiac arrest but is still living. Then her youngest son planned is relatively healthy and only the property she lives on. She used to smoke about a quarter pack of cigarettes per day for about 20 years but quit when she was in her 40s. She used to drink an alcoholic beverage every couple of weeks but has not done so in many years. She denies history of illicit substance use. Code status: DNR/DNI (per patient request) Surrogate decision maker: Dmitry (son) Smoking status: Former smoker Tobacco type: cigarettes Second hand tobacco smoke exposure: No Smoking end date: 09/02/82 Additional smoking assessment comments: patient smoked in her 30's Alcohol intake: never Substance use: never Substance use type: does not use Do You Feel Safe in your Home?: Yes Lack of Transportation: No Lack of Food: Never True Current Housing: I Have Housing Concerned About Future Housing: No Difficulty Paying Gas/Electric Bills: No Difficulty Paying for Meds: No Currently Unemployed: No Education: High School Diploma/GED Difficulty w/ Childcare or Family Care: No Living arrangements: alone Occupation/Education: retired Additional occupation/education comments: [employer] Gender identity (if verbalized by the patient): Female Sexual Orientation (if Verbalized by the Patient): Straight or Heterosexual Spiritual care concerns: No Agree to blood products: Yes Meds Home Medications and Allergies Home Medications ?Medication ?Instructions ?Recorded ?Confirmed ?Type furosemide 20 mg tablet (Lasix) 20 mg PO DAILY #30 tabs 01/17/23 11/14/24 Rx metformin 500 mg tablet 500 mg PO BID 09/18/24 11/14/24 History pantoprazole 40 mg tablet,delayed 40 mg PO DAILY 09/18/24 11/14/24 History release pioglitazone 30 mg tablet 30 mg PO DAILY 09/18/24 11/14/24 History cyclobenzaprine 10 mg tablet 10 mg PO Q12H PRN Muscle Spasm, 09/28/24 11/14/24 Rx Neck pain #30 tabs acetaminophen 500 mg tablet 500 mg PO Q6H PRN fever or pain 10/21/24 11/14/24 History (Acetaminophen Extra Strength) atorvastatin 20 mg tablet 20 mg PO HS 10/21/24 11/14/24 History gabapentin 100 mg capsule 300 mg PO TID 10/21/24 11/14/24 History polyethylene glycol 3350 17 gram 17 g PO DAILY PRN constipation 10/21/24 11/14/24 History oral powder packet (Miralax) sennosides 8.6 mg tablet (Senna 8.6 mg PO Q12H PRN constipation 10/21/24 11/14/24 History Lax) diclofenac sodium 1 % topical gel 4 g topical QID #100 grams 10/27/24 11/14/24 Rx (Voltaren Arthritis Pain) tamsulosin 0.4 mg capsule 0.4 mg PO QAM #30 caps 10/27/24 11/14/24 Rx uclhjvak-otexvxmsm-nwyzafdxgic 10 ml PO Q4-5H PRN heartburn 11/14/24 11/14/24 History warfarin 3 mg tablet 3 mg PO DAILY 11/14/24 11/14/24 History warfarin 4 mg tablet 4 mg PO DAILY 11/14/24 11/14/24 History Allergies Allergy/AdvReac Type Severity Reaction Status Date / Time Iodinated Contrast Media Allergy Intermediate Rash Verified 11/13/24 17:06 Vital Signs Vital Signs - 24 hr 11/13/24 16:53 11/13/24 17:08 11/13/24 17:10 Temperature 97.5 F L 97.2 F L Pulse Rate 85 85 Respiratory Rate 16 17 Blood Pressure 96/43 L Pulse Oximetry 100 100 100 Oxygen Delivery Nasal Cannula Nasal Cannula Oxygen Flow Rate 5 2 11/13/24 17:24 11/13/24 17:53 11/13/24 18:03 Temperature Pulse Rate 84 93 Respiratory Rate 20 19 Blood Pressure 94/59 L 94/56 L 106/51 L Pulse Oximetry 100 100 99 Oxygen Delivery Oxygen Flow Rate 11/13/24 18:35 11/13/24 18:45 11/13/24 18:46 Temperature Pulse Rate 94 91 94 Respiratory Rate 16 15 17 Blood Pressure Pulse Oximetry 100 98 Oxygen Delivery Oxygen Flow Rate 11/13/24 18:57 11/13/24 19:03 11/13/24 19:11 Temperature Pulse Rate 93 93 Respiratory Rate 20 18 Blood Pressure 98/55 L 109/66 Pulse Oximetry 96 100 95 Oxygen Delivery Oxygen Flow Rate 11/13/24 19:18 11/13/24 19:30 11/13/24 19:31 Temperature Pulse Rate 90 93 93 Respiratory Rate 17 12 12 Blood Pressure 82/36 L Pulse Oximetry 93 98 100 Oxygen Delivery Oxygen Flow Rate 11/13/24 19:45 11/13/24 20:00 11/13/24 20:01 Temperature Pulse Rate 94 94 100 Respiratory Rate 12 13 16 Blood Pressure 90/42 L Pulse Oximetry 100 99 Oxygen Delivery Oxygen Flow Rate 11/13/24 20:32 11/13/24 20:57 11/13/24 21:18 Temperature Pulse Rate 91 96 93 Respiratory Rate 13 12 18 Blood Pressure Pulse Oximetry 96 99 100 Oxygen Delivery Oxygen Flow Rate 11/13/24 21:25 11/13/24 21:28 11/13/24 21:29 Temperature Pulse Rate 88 89 Respiratory Rate 16 18 Blood Pressure 99/47 L 123/63 123/68 Pulse Oximetry 100 100 Oxygen Delivery Oxygen Flow Rate 11/13/24 21:31 11/13/24 21:32 11/13/24 21:45 Temperature Pulse Rate 91 90 88 Respiratory Rate 11 L 16 14 Blood Pressure 119/60 Pulse Oximetry 100 98 100 Oxygen Delivery Oxygen Flow Rate 11/13/24 21:46 11/13/24 22:00 11/13/24 22:01 Temperature Pulse Rate 87 85 86 Respiratory Rate 13 11 L 12 Blood Pressure 108/71 111/63 Pulse Oximetry 98 99 100 Oxygen Delivery Oxygen Flow Rate 11/13/24 22:15 11/13/24 22:16 11/13/24 22:30 Temperature Pulse Rate 88 90 94 Respiratory Rate 11 L 12 16 Blood Pressure 112/58 L 122/77 Pulse Oximetry Oxygen Delivery Oxygen Flow Rate 11/13/24 22:32 03/14/25 22:45 11/13/24 22:46 Temperature Pulse Rate 89 95 92 Respiratory Rate 15 24 H 15 Blood Pressure 95/46 L Pulse Oximetry Oxygen Delivery Oxygen Flow Rate 11/13/24 22:48 11/13/24 23:00 11/13/24 23:01 Temperature Pulse Rate 95 92 91 Respiratory Rate 16 12 13 Blood Pressure 124/63 126/66 Pulse Oximetry Oxygen Delivery Oxygen Flow Rate 11/13/24 23:03 11/13/24 23:29 11/13/24 23:30 Temperature Pulse Rate 87 90 91 Respiratory Rate 17 11 L 12 Blood Pressure 126/66 Pulse Oximetry 97 Oxygen Delivery Oxygen Flow Rate 11/13/24 23:31 11/14/24 00:04 11/14/24 00:15 Temperature Pulse Rate 90 92 91 Respiratory Rate 11 L 12 12 Blood Pressure 113/65 Pulse Oximetry Oxygen Delivery Oxygen Flow Rate 11/14/24 00:16 11/14/24 01:00 11/14/24 01:01 Temperature Pulse Rate 89 90 91 Respiratory Rate 17 13 14 Blood Pressure 110/56 L 132/78 Pulse Oximetry Oxygen Delivery Oxygen Flow Rate 11/14/24 01:55 11/14/24 02:00 11/14/24 02:01 Temperature Pulse Rate 90 94 92 Respiratory Rate 13 22 H 15 Blood Pressure 110/57 L Pulse Oximetry 98 99 Oxygen Delivery Oxygen Flow Rate 11/14/24 02:04 11/14/24 02:41 11/14/24 03:03 Temperature 97.8 F Pulse Rate 92 90 Respiratory Rate 15 15 Blood Pressure 110/57 L 102/58 L Pulse Oximetry 98 99 92 Oxygen Delivery Nasal Cannula Oxygen Flow Rate 1 11/14/24 04:00 Temperature 97.5 F L Pulse Rate 86 Respiratory Rate 16 Blood Pressure 108/40 L Pulse Oximetry 100 Oxygen Delivery Oxygen Flow Rate Exam 2 Narrative: Weight 128.9 kg BMI 50.3 Const: Other: Morbidly obese, chronically ill-appearing, lying in bed with the head of bed at about 20? HENMT: Other: Mucous membranes are tacky, no oral pharyngeal erythema, crowded posterior oropharynx, snoring respirations with witnessed apnea Eyes: Other: Pupils are equal and reactive, no scleral icterus, positive conjunctival pallor Neck: Other: Large neck circumference, no JVD, trachea midline Resp: Other: Clear to auscultation bilaterally, no increased work of breathing anterior lung griffin examined Cardio: Other: Regular rate, occasional irregular rhythm, 2+ bilateral radial pedal pulses, no JVD GI: Other: Obese, soft, nontender, normoactive bowel sounds Skin: Other: Generalized pallor, non jaundice Neuro: Other: Alert oriented x3 but slow to respond, no localizing neurologic deficits noted during the course of conversation Extrem: Other: Generalized anasarca, generalized weakness with 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 Psych: Other: Cooperative, flat affect, no acute distress H&P: Results Labs Labs: Laboratory Tests 11/13/24 18:14 11/13/24 18:14 11/13/24 11/13/24 11/14/24 18:14 22:54 02:49 WBC 7.6 RBC 2.71 L Hgb 8.6 L Hct 27.8 L MCV 102.6 H MCH 31.7 MCHC 30.9 L RDW 17.0 H Plt Count 205 MPV 11.5 H Immature Gran % (Auto) 0.4 Neut % (Auto) 66.7 Lymph % (Auto) 19.7 [place] % (Auto) 8.0 Eos % (Auto) 4.3 Baso % (Auto) 0.9 Lymph # (Auto) 1.50 [place] # (Auto) 0.6 Eos # (Auto) 0.3 Baso # (Auto) 0.1 Abs Immat Gran (auto) 0.03 Absolute Neuts (auto) 5.1 Absolute Nucleated RBC 0.000 Nucleated RBC % 0.0 PT 32.2 H INR 3.0 APTT 70.8 H Sodium 135 L Potassium 5.4 H Chloride 102 Carbon Dioxide 26 Anion Gap 7 BUN 30 H D Creatinine 1.26 H Estim Creat Clear Calc 41 Estimated GFR 41 L Glucose 136 H Lactic Acid 2.2 H 1.1 Calcium 9.1 Total Bilirubin 0.4 AST 17 ALT 15 Alkaline Phosphatase 76 Troponin I < 0.012 NT-Pro-B Natriuret Pep 784 H Total Protein 6.0 L Albumin 3.1 L TSH 6.460 H Urine Color Yellow Urine Appearance Clear Urine pH 8.0 Ur Specific [place] 1.017 Urine Protein Trace Urine Glucose (UA) Negative Urine Ketones Negative Ur Blood (Man) Negative Urine Nitrate Negative Urine Bilirubin Negative Urine Urobilinogen 0.2 Leukocyte Esterase Rfl Negative Urine RBC 0-2 Urine WBC 0-5 Ur Squamous Epith Cells None seen Urine Bacteria None seen Urine Casts 0-2 Impressions Chest X-Ray 11/13/24 18:00 IMPRESSION: Cardiomegaly with congestive renate. Bilateral interstitial thickening suggestive of pulmonary edema versus pneumonitis. Clinical correlation advised. Head CT 11/13/24 18:40 IMPRESSION: No acute intracranial findings. Chest/Abdomen/Pelvis CTA 11/13/24 21:05 IMPRESSION: CHEST: 1. No definite pulmonary embolism. Filling defects in the right lower lobe branches are most likely artifactual. 2. Bilateral groundglass appearance suggestive of atelectasis versus pneumonia versus edema. 3. A right thyroid nodule. ABDOMEN/PELVIS: 1. No evidence of appendicitis, diverticulitis or intestinal obstruction. 2. Sliding hiatus hernia. EKG: Personally reviewed Sinus rhythm with 1st degree lung with occasional supraventricular premature complexes, right bundle-branch block left anterior fascicular block QTC 454 previous a flutter no longer present compared to EKG from October cardiology interpretation pending All imaging and EKGs personally reviewed and interpreted. And unless stated otherwise agree with radiologic and cardiology interpretation. Assessment and Plan Assessment and plan (1) Cardiac related syncope: Code(s): R55 - Syncope and collapse Status: Acute (2) Chronic anticoagulation: Code(s): Z79.01 - manager terminal (current) use of anticoagulants Status: Acute (3) Chronic kidney disease, stage 3a: Code(s): N18.31 - Chronic kidney disease, stage 3a Status: Acute (4) Elevated TSH: Code(s): R79.89 - Other specified abnormal findings of blood chemistry Status: Acute Plan Patient likely had syncope due to cardiac arrhythmia possible sinus pause. The patient has not had any prolonged pauses since presentation to the ER. EKG did demonstrate first-degree AV block. Will monitor the patient in IMU. The patient did receive IV fluid boluses but blood pressures have been normal in the patient has diffuse lower extremity edema. Will stop IV fluid hydration. Will repeat electrolyte panel with a.m. labs. Patient does have chronic anemia hemoglobin appears stable compared to recent labs. Her INR was therapeutic at 3. Will repeat iron are level in a.m.. Will re-evaluate whether to adjust warfarin dosing depending on a.m. labs. The patient has no evidence of acute bleeding. Patient would benefit from event monitor at discharge. Will consult Cardiology. No need to repeat echocardiogram is patient had 1 within the last couple of months. Patient had mildly elevated TSH at the time of completion of of documentation T3 and free T4 had returned. Labs seem consistent with euthyroid sick. Not likely playing a component in the patient syncope. Quality VTE Prophylaxis VTE prophylaxis: pharmacologic ordered (Coumadin on hold briefly due to supratherapeutic INR) If No VTE Prophylaxis Answer both mechanical and pharmacologic: Reason no mechanical VTE proph: medical contraindication Reason no pharmacologic proph: medical contraindication supratherapeutic INR >3 Hospitalist MIPS Advance Care Plan I have confirmed that the patient's Advanced Care Plan is present, code status is documented, or surrogate decision maker is listed in patient medical record.: Yes Medication Reconciliation I have utilized all available resources to obtain, update and review the patients current medications (includes all prescriptions, OTC, herbals, cannabis, and nutritional supplements).: Yes
--- NOTE | 2024-11-14 05:16 | ADMGEN ---
This patient, Akanksha Garner, was admitted to IMU Room 206-01 at 0222. Patient/family oriented to hospital policies and general routines including ID bracelet, bed and alarms, visiting hours, pain management, procedures, bathroom and other care routines, personal items, smoking policy, room service/diet, and visiting hours. Information on how to activate the Rapid Response Team has been discussed. Patient/Family are encouraged to report perceived risks to care and to ask questions if they do not understand what they are told or what they should do.
[2024-11-14 06:57] LABS: Hemoglobin 7.4 g/dL (12.0-15.0); Mean Corpuscular HGB Conc 30.8 g/dl (32-36); Mean Corpuscular Hemoglobin 31.5 pg (26-34); Mean Corpuscular Volume 102.1 fl (80-100); Mean Platelet Volume 11.3 fl (7.4-10.4); Platelet Count Result 197 k/mm3 (150-375); Red Blood Count 2.35 M/mm3 (4.2-5.4); Red Cell Distribution Width 16.9 % (11.5-14.5)
[2024-11-14 07:08] LABS: Anion Gap 2 mmol/L (4-12); Blood Urea Nitrogen 28 mg/dL (7-17); Calcium 8.6 mg/dL (8.4-10.2); Carbon Dioxide 29 mmol/L (22-30); Chloride 104 mmol/L (98-107); Estimated CRCL calculation 43 ml/min; Estimated Glomerular Filt Rate 44; Glucose 128 mg/dL (65-110); Potassium 4.7 mmol/L (3.4-5.0); Sodium 135 mmol/L (137-145)
[2024-11-14 07:12] LABS: INR 3.3; Prothrombin Time 34.5 Seconds (11.1-14.7)
[2024-11-14 07:31] LABS: Free T4 Free Thyroxine 1.52 ng/dL (0.78-2.19)
[2024-11-14 07:46] LABS: Total Triiodothyronine (T3) 0.81 NG/ML (0.97-1.69)
[2024-11-14] MEDS: FUROSEMIDE 20 MG TABLET PO (09:12)
[2024-11-14] MEDS: TAMSULOSIN HCL 0.4 MG CAPSULE PO (09:12)
[2024-11-14] MEDS: GABAPENTIN 300 MG CAPSULE PO ×3 (09:12→17:53)
[2024-11-14] MEDS: PANTOPRAZOLE 40 MG TABLET PO (09:12)
[2024-11-14] MEDS: MAG HYDROX/AL HYDROX/SIMETH 30 ML UDC 10 ML PO ×2 (09:14→20:29)
[2024-11-14] MEDS: DICLOFENAC SODIUM 1% 100 GM GEL (*BKC) 1 APPLIC TOPICAL ×4 (09:15→20:28)
--- NOTE | 2024-11-14 12:30 | P.CONCA_ITS ---
Assessment and Plan Assessment and plan (1) Syncope: Code(s): R55 - Syncope and collapse Status: Acute Assessment and Plan: 79-year-old female with CHFpEF, hypertension, diabetes mellitus, history of DVT on anticoagulation with warfarin. Patient admitted from shelter rehab with an episode of loss of consciousness, found to be hypotensive and bradycardic by EMS. EKG shows sinus rhythm, first-degree AV block, RBBB. No significant Baljeet arrhythmias on the telemetry so far during this hospitalization. -continue to monitor on telemetry for now. -avoid aggressive diuresis for now. -recent echo showed preserved LV systolic function. -TSH within normal limits. -may consider 30 day event monitor at discharge based on clinical course (2) Chronic diastolic CHF (congestive heart failure): Code(s): I50.32 - Chronic diastolic (congestive) heart failure Status: Acute Assessment and Plan: Diuretic on hold for now. May use gentle diuresis on p.r.n. basis. Keep legs elevated. (3) Hypertension associated with diabetes: Code(s): E11.59 - Type 2 diabetes mellitus with other circulatory complications; I15.2 - Hypertension secondary to endocrine disorders Status: Acute Assessment and Plan: Management as per primary team History of Present Illness History of Present Illness Consult date/time: 11/14/24 12:30 Requesting physician: Johanna Jensen DO Consult reason: Other (Syncope, sinus was) Reason For Visit: Syncopal event, possible cardiac syncope, Narrative: DATE OF CONSULT: 11/14/2024 REASON FOR CONSULT: Syncope, sinus was REQUESTING PHYSICIAN: Dr. Jensen CHIEF COMPLAINT: Brought to the hospital with loss of consciousness HPI: 79-year-old female with CHFpEF, hypertension, diabetes mellitus, history of DVT on anticoagulation with warfarin. Patient brought to [facility] Emergency Room on 11/13/2024 from living facility via EMS after she had loss of consciousness. As per ER notes, patient was found to be bradycardic, hypoxic, hypotensive and bradycardic in the 30s by EMS. She was apparently given 100 mcg of push dose epinephrine by EMS with improvement in vitals. In the ER, patient was alert oriented. At the time of evaluation today, patient denied any ongoing symptoms of dizziness. Patient is not ambulatory at this time. She states that she was recently hospitalized for UTI and is currently in the shelter rehab. She states that she had episode of loss of consciousness. No preceding symptoms of shortness of breath or chest pain. She states that she had similar episode recently when she was not feeling well. There is no known prior cardiac history including clinical DC, angina or any known arrhythmias. EKG at presentation on my personal interpretation showed sinus rhythm with first-degree AV block, RBBB. Troponin x1 negative. NT proBNP elevated at 784. INR 3.0. Chest x-ray showed Cardiomegaly with congestive renate. Bilateral interstitial thickening suggestive of pulmonary edema versus pneumonitis. CT head unremarkable. CT chest showed lateral groundglass appearance suggestive of atelectasis versus pneumonia versus edema; no PE. Patient states that she has been on anticoagulation with warfarin due to history of recurrent DVT. She states that she was unable to afford DOAC. Recent echo from 09/23/2024 reportedly showed preserved LV systolic function, moderate pulmonary hypertension. Review of Systems 2 Review of Systems: General: Positive for fatigue Psychological: Positive for anxiety Ophthalmic: negative for loss of vision ENT: Negative for epistaxis, headaches Allergy and immunology: Negative for hives, nasal congestion Hematologic and lymphatic: Negative for overt bleeding problems Endocrine: Negative for hot flashes, palpitations Respiratory: Negative for cough, hemoptysis Cardiovascular: Negative for chest pain, positive for syncope Gastrointestinal: Negative for abdominal pain, nausea, vomiting, hematochezia Musculoskeletal: Positive for joint pain Neurological: Positive for generalized weakness, unable to walk Dermatological: Negative for rash, skin discoloration PMFSH Past Medical History Medical History (Updated 11/14/24 @ 12:51 by Bud Thakkar MD) Diabetic polyneuropathy Type 2 diabetes mellitus Morbid obesity with BMI of 45.0-49.9, adult Chronic kidney disease, stage 3a Diastolic heart failure GERD without esophagitis H/O TIA (transient ischemic attack) and stroke H/O deep venous thrombosis Hyperlipidemia Essential (primary) hypertension Surgical History Surgical History History of hysterectomy S/P cholecystectomy Family History Family History Mother Family history of migraine headaches Family history of arthritis Family history of Alzheimer's disease Father Family history of cataracts Family history of diabetes mellitus in first degree relative Family history of congestive heart failure Family history of heart disease in male family member before age 55 Family history of hearing loss Sibling Family history of diabetes mellitus in first degree relative Other Diabetes mellitus Social History Social History Social History: She is (for over 50 years) and lives by herself in a small home on her son's property. She has 2 sons 1 of which is living in a shelter due to blindness an intellectual disability associated with extreme prematurity. She has a daughter who is chronically ill and has had a prior cardiac arrest but is still living. Then her youngest son planned is relatively healthy and only the property she lives on. She used to smoke about a quarter pack of cigarettes per day for about 20 years but quit when she was in her 40s. She used to drink an alcoholic beverage every couple of weeks but has not done so in many years. She denies history of illicit substance use. Code status: DNR/DNI (per patient request) Surrogate decision maker: Dmitry (son) Smoking status: Former smoker Tobacco type: cigarettes Second hand tobacco smoke exposure: No Smoking end date: 09/02/82 Additional smoking assessment comments: patient smoked in her 30's Alcohol intake: never Substance use: never Substance use type: does not use Do You Feel Safe in your Home?: Yes Lack of Transportation: No Lack of Food: Never True Current Housing: I Have Housing Concerned About Future Housing: No Difficulty Paying Gas/Electric Bills: No Difficulty Paying for Meds: No Currently Unemployed: No Education: High School Diploma/GED Difficulty w/ Childcare or Family Care: No Living arrangements: alone Occupation/Education: retired Additional occupation/education comments: [employer] Gender identity (if verbalized by the patient): Female Sexual Orientation (if Verbalized by the Patient): Straight or Heterosexual Spiritual care concerns: No Agree to blood products: Yes Meds Home Medications and Allergies Home Medications ?Medication ?Instructions ?Recorded ?Confirmed ?Type furosemide 20 mg tablet (Lasix) 20 mg PO DAILY #30 tabs 01/17/23 11/14/24 Rx metformin 500 mg tablet 500 mg PO BID 09/18/24 11/14/24 History pantoprazole 40 mg tablet,delayed 40 mg PO DAILY 09/18/24 11/14/24 History release pioglitazone 30 mg tablet 30 mg PO DAILY 09/18/24 11/14/24 History cyclobenzaprine 10 mg tablet 10 mg PO Q12H PRN Muscle Spasm, 09/28/24 11/14/24 Rx Neck pain #30 tabs acetaminophen 500 mg tablet 500 mg PO Q6H PRN fever or pain 10/21/24 11/14/24 History (Acetaminophen Extra Strength) atorvastatin 20 mg tablet 20 mg PO HS 10/21/24 11/14/24 History gabapentin 100 mg capsule 300 mg PO TID 10/21/24 11/14/24 History polyethylene glycol 3350 17 gram 17 g PO DAILY PRN constipation 10/21/24 11/14/24 History oral powder packet (Miralax) sennosides 8.6 mg tablet (Senna 8.6 mg PO Q12H PRN constipation 10/21/24 11/14/24 History Lax) diclofenac sodium 1 % topical gel 4 g topical QID #100 grams 10/27/24 11/14/24 Rx (Voltaren Arthritis Pain) tamsulosin 0.4 mg capsule 0.4 mg PO QAM #30 caps 10/27/24 11/14/24 Rx tvannsgz-vqkuuozgg-hjldzwijqzx 10 ml PO Q4-5H PRN heartburn 11/14/24 11/14/24 History warfarin 3 mg tablet 3 mg PO DAILY 11/14/24 11/14/24 History warfarin 4 mg tablet 4 mg PO DAILY 11/14/24 11/14/24 History Allergies Allergy/AdvReac Type Severity Reaction Status Date / Time Iodinated Contrast Media Allergy Intermediate Rash Verified 11/13/24 17:06 Vital Signs Vital Signs - 24 hr 11/13/24 16:53 11/13/24 17:08 11/13/24 17:10 Temperature 36.4 C L 36.2 C L Pulse Rate 85 85 Respiratory Rate 16 17 Blood Pressure 96/43 L Pulse Oximetry 100 100 100 Oxygen Delivery Nasal Cannula Nasal Cannula Oxygen Flow Rate 5 2 Fraction of Inspired Oxygen 11/13/24 17:24 11/13/24 17:53 11/13/24 18:03 Temperature Pulse Rate 84 93 Respiratory Rate 20 19 Blood Pressure 94/59 L 94/56 L 106/51 L Pulse Oximetry 100 100 99 Oxygen Delivery Oxygen Flow Rate Fraction of Inspired Oxygen 11/13/24 18:35 11/13/24 18:45 11/13/24 18:46 Temperature Pulse Rate 94 91 94 Respiratory Rate 16 15 17 Blood Pressure Pulse Oximetry 100 98 Oxygen Delivery Oxygen Flow Rate Fraction of Inspired Oxygen 11/13/24 18:57 11/13/24 19:03 11/13/24 19:11 Temperature Pulse Rate 93 93 Respiratory Rate 20 18 Blood Pressure 98/55 L 109/66 Pulse Oximetry 96 100 95 Oxygen Delivery Oxygen Flow Rate Fraction of Inspired Oxygen 11/13/24 19:18 11/13/24 19:30 11/13/24 19:31 Temperature Pulse Rate 90 93 93 Respiratory Rate 17 12 12 Blood Pressure 82/36 L Pulse Oximetry 93 98 100 Oxygen Delivery Oxygen Flow Rate Fraction of Inspired Oxygen 11/13/24 19:45 11/13/24 20:00 11/13/24 20:01 Temperature Pulse Rate 94 94 100 Respiratory Rate 12 13 16 Blood Pressure 90/42 L Pulse Oximetry 100 99 Oxygen Delivery Oxygen Flow Rate Fraction of Inspired Oxygen 11/13/24 20:32 11/13/24 20:57 11/13/24 21:18 Temperature Pulse Rate 91 96 93 Respiratory Rate 13 12 18 Blood Pressure Pulse Oximetry 96 99 100 Oxygen Delivery Oxygen Flow Rate Fraction of Inspired Oxygen 11/13/24 21:25 11/13/24 21:28 11/13/24 21:29 Temperature Pulse Rate 88 89 Respiratory Rate 16 18 Blood Pressure 99/47 L 123/63 123/68 Pulse Oximetry 100 100 Oxygen Delivery Oxygen Flow Rate Fraction of Inspired Oxygen 11/13/24 21:31 11/13/24 21:32 11/13/24 21:45 Temperature Pulse Rate 91 90 88 Respiratory Rate 11 L 16 14 Blood Pressure 119/60 Pulse Oximetry 100 98 100 Oxygen Delivery Oxygen Flow Rate Fraction of Inspired Oxygen 11/13/24 21:46 11/13/24 22:00 11/13/24 22:01 Temperature Pulse Rate 87 85 86 Respiratory Rate 13 11 L 12 Blood Pressure 108/71 111/63 Pulse Oximetry 98 99 100 Oxygen Delivery Oxygen Flow Rate Fraction of Inspired Oxygen 11/13/24 22:15 11/13/24 22:16 11/13/24 22:30 Temperature Pulse Rate 88 90 94 Respiratory Rate 11 L 12 16 Blood Pressure 112/58 L 122/77 Pulse Oximetry Oxygen Delivery Oxygen Flow Rate Fraction of Inspired Oxygen 11/13/24 22:32 11/13/24 22:45 11/13/24 22:46 Temperature Pulse Rate 89 95 92 Respiratory Rate 15 24 H 15 Blood Pressure 95/46 L Pulse Oximetry Oxygen Delivery Oxygen Flow Rate Fraction of Inspired Oxygen 11/13/24 22:48 11/13/24 23:00 11/13/24 23:01 Temperature Pulse Rate 95 92 91 Respiratory Rate 16 12 13 Blood Pressure 124/63 126/66 Pulse Oximetry Oxygen Delivery Oxygen Flow Rate Fraction of Inspired Oxygen 11/13/24 23:03 11/13/24 23:29 11/13/24 23:30 Temperature Pulse Rate 87 90 91 Respiratory Rate 17 11 L 12 Blood Pressure 126/66 Pulse Oximetry 97 Oxygen Delivery Oxygen Flow Rate Fraction of Inspired Oxygen 11/13/24 23:31 11/14/24 00:04 11/14/24 00:15 Temperature Pulse Rate 90 92 91 Respiratory Rate 11 L 12 12 Blood Pressure 113/65 Pulse Oximetry Oxygen Delivery Oxygen Flow Rate Fraction of Inspired Oxygen 11/14/24 00:16 11/14/24 01:00 11/14/24 01:01 Temperature Pulse Rate 89 90 91 Respiratory Rate 17 13 14 Blood Pressure 110/56 L 132/78 Pulse Oximetry Oxygen Delivery Oxygen Flow Rate Fraction of Inspired Oxygen 11/14/24 01:55 11/14/24 02:00 11/14/24 02:01 Temperature Pulse Rate 90 94 92 Respiratory Rate 13 22 H 15 Blood Pressure 110/57 L Pulse Oximetry 98 99 Oxygen Delivery Oxygen Flow Rate Fraction of Inspired Oxygen 11/14/24 02:04 11/14/24 02:41 11/14/24 03:03 Temperature 36.6 C Pulse Rate 92 90 Respiratory Rate 15 15 Blood Pressure 110/57 L 102/58 L Pulse Oximetry 98 99 92 Oxygen Delivery Nasal Cannula Oxygen Flow Rate 1 Fraction of Inspired Oxygen 11/14/24 03:15 11/14/24 04:00 11/14/24 04:00 Temperature 36.4 C L Pulse Rate 86 81 Respiratory Rate 16 Blood Pressure 108/40 L Pulse Oximetry 100 100 Oxygen Delivery Room Air Oxygen Flow Rate Fraction of Inspired Oxygen 1 11/14/24 06:00 11/14/24 08:00 11/14/24 08:00 Temperature 36.9 C Pulse Rate 84 81 81 Respiratory Rate 20 20 Blood Pressure 106/45 L Pulse Oximetry 100 96 Oxygen Delivery Room Air Oxygen Flow Rate Fraction of Inspired Oxygen 11/14/24 08:00 11/14/24 10:00 11/14/24 10:19 Temperature Pulse Rate 81 81 Respiratory Rate Blood Pressure Pulse Oximetry 96 Oxygen Delivery Nasal Cannula Oxygen Flow Rate 2 Fraction of Inspired Oxygen 11/14/24 11:26 11/14/24 11:26 11/14/24 12:00 Temperature 36.8 C Pulse Rate 81 81 88 Respiratory Rate 20 20 Blood Pressure 123/68 Pulse Oximetry 96 99 Oxygen Delivery Room Air Oxygen Flow Rate Fraction of Inspired Oxygen 1 Exam 2 Narrative: PHYSICAL EXAMINATION: GENERAL: Obese, Alert, oriented, no acute distress MENTAL STATUS: affect appropriate to mood EYES: Extraocular movements intact, no pallor EARS: External ears appear normal, hearing grossly normal NOSE: Normal and patent, no discharge MOUTH: Mucous membranes moist, tongue normal NECK: Supple, no JVD CHEST: Good respiratory effort, clear to auscultation HEART: Normal rate, regular rhythm, normal S1 and S2, no audible murmurs ABDOMEN: Soft, nontender NEUROLOGICAL: Alert, oriented, normal speech, no gross motor deficits MUSCULOSKELETAL: No major deformity, no amputation EXTREMITIES: Bilateral pedal edema with erythema SKIN: Abdomen lower extremities, no cyanosis PSYCHIATRIC: Normal mood, appropriate affect Results Labs and Meds 11/14/24 06:49 11/14/24 06:49 Lab results: Cardiac Enzymes 11/13/24 Range/Units 18:14 AST 17 (14-36) U/L Troponin I < 0.012 (0.000-0.034) ng/mL Coagulation 11/13/24 11/14/24 Range/Units 18:14 06:49 PT 32.2 H 34.5 H (11.1-14.7) Seconds APTT 70.8 H (22.3-36.8) Seconds CBC 11/13/24 11/14/24 Range/Units 18:14 06:49 WBC 7.6 7.0 (4.5-10.0) K/mm3 RBC 2.71 L 2.35 L (4.2-5.4) M/mm3 Hgb 8.6 L 7.4 L (12.0-15.0) g/dL Hct 27.8 L 24.0 L (37.0-47.0) % Plt Count 205 197 (150-375) k/mm3 Lymph # (Auto) 1.50 (0.9-3.2) K/mm3 [place] # (Auto) 0.6 (0.1-0.6) K/mm3 Eos # (Auto) 0.3 (0-0.3) K/mm3 Baso # (Auto) 0.1 (0.0-0.1) K/mm3 Comprehensive Metabolic Panel 11/13/24 11/14/24 Range/Units 18:14 06:49 Sodium 135 L 135 L (137-145) mmol/L Potassium 5.4 H 4.7 (3.4-5.0) mmol/L Chloride 102 104 (98-107) mmol/L Carbon Dioxide 26 29 (22-30) mmol/L BUN 30 H D 28 H (7-17) mg/dL Creatinine 1.26 H 1.19 H (0.7-1.0) mg/dL Glucose 136 H 128 H (65-110) mg/dL Calcium 9.1 8.6 (8.4-10.2) mg/dL AST 17 (14-36) U/L ALT 15 (6-35) U/L Alkaline Phosphatase 76 (38-126) U/L Total Protein 6.0 L (6.3-8.2) g/dL Albumin 3.1 L (3.5-5.1) g/dL Intake and Output 11/13/24 11/14/24 11/14/24 23:59 07:59 15:59 Intake Total 100 1252.5 240 Output Total 1200 Balance 100 52.5 240 Intake: IV 100 1252.5 Lactated Ringers 1,000 ml @ 75 202.5 mls/hr IV CONT .[id number] VALENTIN Rx# :[id number] Sodium Chloride 0.9% IV 1,000 1000 ml @ 999 mls/hr IV CONT .Q1H1M STA Rx#:[id number] Albumin Human 25% 25 gm/100 ml 100 100 ml @ 60 mls/hr IVPB ONCE ONE Rx#:[id number] cefTRIAXone 1 GM/NS 50 ML 1 gm 50 In 50 ml @ 100 mls/hr IVPB ONCE STA Rx#:[id number] Oral 240 Output: Catheter Urine 1200 Urethral Catheter 1200 Other: Amount of IV Fluids Infused by 200 EMS Patient Weight 11/14/24 23:59 Weight 128.9 kg
[2024-11-14 13:48] LABS: Glucose Point of Care 174 mg/dl (65-105)
--- NOTE | 2024-11-14 14:23 | P.PNIM_ITS ---
Progress Note: A&P Assessment and Plan (1) Syncope: Code(s): R55 - Syncope and collapse Status: Acute (2) Chronic diastolic CHF (congestive heart failure): Code(s): I50.32 - Chronic diastolic (congestive) heart failure Status: Acute (3) Hypertension associated with diabetes: Code(s): E11.59 - Type 2 diabetes mellitus with other circulatory complications; I15.2 - Hypertension secondary to endocrine disorders Status: Acute Plan patient currently stats feeling better not sure what exactly happened to her with slow HR, seen by radiator mechanic patient is clinically stable now, will monitor on tele, patient will need 30 days event monitor upon discharge, will monitor. Subjective Date/time seen: 11/14/24 14:23 Interval history: Unresponsive H&P-Narrative: 79-year-old female with past medical history of DVTs, grade 1 diastolic dysfunction, rheumatoid arthritis, chronic kidney disease stage 3, morbid ob esity and type 2 diabetes mellitus among other comorbidities who presented to the ER from acute rehab facility via EMS due to unresponsive episode. The patient does not remember exactly why she came to the hospital. The patient was alert oriented person, place and time but had delayed responses compared to prior interviews with the patient. She does not remember exactly why she was brought to the hospital. On EMS arrival to the facility she was noted to be bradycardic and hypotensive. The patient received IV push of epinephrine in the field due to heart rate of 30. The patient's oxygen saturation was also noted to be 70s on room air and she was placed on 5 L in the field. When she arrived to the ER her oxygen saturation was normal but when she falls asleep it is noted that the patient does have episodes of apnea at the time my evaluation. Patient denies any known history of obstructive sleep apnea. She denies any chest pain or palpitations. In the ER she reported that she was feeling ?cookoo? and felt worse during physical therapy just prior to this episode happening. She did not have any associated nausea, diaphoresis or chest pain. She has had several episodes of short sinus pauses 2-3 seconds since presentation to the hospital but has not had any high-degree heart block noted. She had a recent echocardiogram in September of 2024 patient currently stats feeling better not sure what exactly happened to her with slow HR, seen by radiator mechanic patient is clinically stable now, will monitor on tele, patient will need 30 days event monitor upon discharge, will monitor. Review of Systems Review of Systems: General: Positive for fatigue Psychological: Positive for anxiety Ophthalmic: negative for loss of vision ENT: Negative for epistaxis, headaches Allergy and immunology: Negative for hives, nasal congestion Hematologic and lymphatic: Negative for overt bleeding problems Endocrine: Negative for hot flashes, palpitations Respiratory: Negative for cough, hemoptysis Cardiovascular: Negative for chest pain, positive for syncope Gastrointestinal: Negative for abdominal pain, nausea, vomiting, hematochezia Musculoskeletal: Positive for joint pain Neurological: Positive for generalized weakness, unable to walk Dermatological: Negative for rash, skin discoloration Exam Narrative: Morbidly obese with BMI of 50 Patient is comfortable, NAD HEENT: eyes are clear and none icteric LUNGS:CTA HEART: RR S1S2 ABD: BS+, Soft and nontender Lower extremities: no edema SKIN: nonjaundiced Neuro: grossly intact. Objective Data Vital Signs Vital Signs: Vital Signs - 24 hr 11/13/24 16:53 11/13/24 17:08 11/13/24 17:10 Temperature 36.4 C L 36.2 C L Pulse Rate 85 85 Respiratory Rate 16 17 Blood Pressure 96/43 L Pulse Oximetry 100 100 100 Oxygen Delivery Nasal Cannula Nasal Cannula Oxygen Flow Rate 5 2 Fraction of Inspired Oxygen 11/13/24 17:24 11/13/24 17:53 11/13/24 18:03 Temperature Pulse Rate 84 93 Respiratory Rate 20 19 Blood Pressure 94/59 L 94/56 L 106/51 L Pulse Oximetry 100 100 99 Oxygen Delivery Oxygen Flow Rate Fraction of Inspired Oxygen 11/13/24 18:35 11/13/24 18:45 11/13/24 18:46 Temperature Pulse Rate 94 91 94 Respiratory Rate 16 15 17 Blood Pressure Pulse Oximetry 100 98 Oxygen Delivery Oxygen Flow Rate Fraction of Inspired Oxygen 11/13/24 18:57 11/13/24 19:03 11/13/24 19:11 Temperature Pulse Rate 93 93 Respiratory Rate 20 18 Blood Pressure 98/55 L 109/66 Pulse Oximetry 96 100 95 Oxygen Delivery Oxygen Flow Rate Fraction of Inspired Oxygen 11/13/24 19:18 11/13/24 19:30 11/13/24 19:31 Temperature Pulse Rate 90 93 93 Respiratory Rate 17 12 12 Blood Pressure 82/36 L Pulse Oximetry 93 98 100 Oxygen Delivery Oxygen Flow Rate Fraction of Inspired Oxygen 11/13/24 19:45 11/13/24 20:00 11/13/24 20:01 Temperature Pulse Rate 94 94 100 Respiratory Rate 12 13 16 Blood Pressure 90/42 L Pulse Oximetry 100 99 Oxygen Delivery Oxygen Flow Rate Fraction of Inspired Oxygen 11/13/24 20:32 11/13/24 20:57 11/13/24 21:18 Temperature Pulse Rate 91 96 93 Respiratory Rate 13 12 18 Blood Pressure Pulse Oximetry 96 99 100 Oxygen Delivery Oxygen Flow Rate Fraction of Inspired Oxygen 11/13/24 21:25 11/13/24 21:28 11/13/24 21:29 Temperature Pulse Rate 88 89 Respiratory Rate 16 18 Blood Pressure 99/47 L 123/63 123/68 Pulse Oximetry 100 100 Oxygen Delivery Oxygen Flow Rate Fraction of Inspired Oxygen 11/13/24 21:31 11/13/24 21:32 11/13/24 21:45 Temperature Pulse Rate 91 90 88 Respiratory Rate 11 L 16 14 Blood Pressure 119/60 Pulse Oximetry 100 98 100 Oxygen Delivery Oxygen Flow Rate Fraction of Inspired Oxygen 11/13/24 21:46 11/13/24 22:00 11/13/24 22:01 Temperature Pulse Rate 87 85 86 Respiratory Rate 13 11 L 12 Blood Pressure 108/71 111/63 Pulse Oximetry 98 99 100 Oxygen Delivery Oxygen Flow Rate Fraction of Inspired Oxygen 11/13/24 22:15 11/13/24 22:16 11/13/24 22:30 Temperature Pulse Rate 88 90 94 Respiratory Rate 11 L 12 16 Blood Pressure 112/58 L 122/77 Pulse Oximetry Oxygen Delivery Oxygen Flow Rate Fraction of Inspired Oxygen 11/13/24 22:32 11/13/24 22:45 11/13/24 22:46 Temperature Pulse Rate 89 95 92 Respiratory Rate 15 24 H 15 Blood Pressure 95/46 L Pulse Oximetry Oxygen Delivery Oxygen Flow Rate Fraction of Inspired Oxygen 11/13/24 22:48 11/13/24 23:00 11/13/24 23:01 Temperature Pulse Rate 95 92 91 Respiratory Rate 16 12 13 Blood Pressure 124/63 126/66 Pulse Oximetry Oxygen Delivery Oxygen Flow Rate Fraction of Inspired Oxygen 11/13/24 23:03 11/13/24 23:29 11/13/24 23:30 Temperature Pulse Rate 87 90 91 Respiratory Rate 17 11 L 12 Blood Pressure 126/66 Pulse Oximetry 97 Oxygen Delivery Oxygen Flow Rate Fraction of Inspired Oxygen 11/13/24 23:31 11/14/24 00:04 11/14/24 00:15 Temperature Pulse Rate 90 92 91 Respiratory Rate 11 L 12 12 Blood Pressure 113/65 Pulse Oximetry Oxygen Delivery Oxygen Flow Rate Fraction of Inspired Oxygen 11/14/24 00:16 11/14/24 01:00 11/14/24 01:01 Temperature Pulse Rate 89 90 91 Respiratory Rate 17 13 14 Blood Pressure 110/56 L 132/78 Pulse Oximetry Oxygen Delivery Oxygen Flow Rate Fraction of Inspired Oxygen 11/14/24 01:55 11/14/24 02:00 11/14/24 02:01 Temperature Pulse Rate 90 94 92 Respiratory Rate 13 22 H 15 Blood Pressure 110/57 L Pulse Oximetry 98 99 Oxygen Delivery Oxygen Flow Rate Fraction of Inspired Oxygen 11/14/24 02:04 11/14/24 02:41 11/14/24 03:03 Temperature 36.6 C Pulse Rate 92 90 Respiratory Rate 15 15 Blood Pressure 110/57 L 102/58 L Pulse Oximetry 98 99 92 Oxygen Delivery Nasal Cannula Oxygen Flow Rate 1 Fraction of Inspired Oxygen 11/14/24 03:15 11/14/24 04:00 11/14/24 04:00 Temperature 36.4 C L Pulse Rate 86 81 Respiratory Rate 16 Blood Pressure 108/40 L Pulse Oximetry 100 100 Oxygen Delivery Room Air Oxygen Flow Rate Fraction of Inspired Oxygen 1 11/14/24 06:00 11/14/24 08:00 11/14/24 08:00 Temperature 36.9 C Pulse Rate 84 81 81 Respiratory Rate 20 20 Blood Pressure 106/45 L Pulse Oximetry 100 96 Oxygen Delivery Room Air Oxygen Flow Rate Fraction of Inspired Oxygen 11/14/24 08:00 11/14/24 10:00 11/14/24 10:19 Temperature Pulse Rate 81 81 Respiratory Rate Blood Pressure Pulse Oximetry 96 Oxygen Delivery Nasal Cannula Oxygen Flow Rate 2 Fraction of Inspired Oxygen 11/14/24 11:26 11/14/24 11:26 11/14/24 12:00 Temperature 36.8 C Pulse Rate 81 81 88 Respiratory Rate 20 20 Blood Pressure 123/68 Pulse Oximetry 96 99 Oxygen Delivery Room Air Oxygen Flow Rate Fraction of Inspired Oxygen 1 Intake/Output Intake/Output: Intake & Output 11/11/24 11/12/24 11/13/24 11/14/24 23:59 23:59 23:59 23:59 Intake Total 100 1732.5 Output Total 1200 Balance 100 532.5 Meds/Results Medications: Active Medications Generic Name Dose Route Start Last Admin Trade Name Freq PRN Reason Stop Dose Admin Acetaminophen 1,000 mg 11/14/24 10:57 Acetaminophen 500 Mg Tablet PO Q6H PRN fever 1-3 or pain Al Hydrox/Mg Hydrox/Simethicone 10 ml 11/14/24 05:36 11/14/24 09:14 Mag Hydrox/Al Hydrox/Simeth 30 Ml Udc PO 10 ml Q4-6H PRN Administration heartburn Atorvastatin Calcium 20 mg 11/14/24 21:00 Atorvastatin 20 Mg Tablet PO HS VALENTIN Cyclobenzaprine HCl 10 mg 11/14/24 04:51 Cyclobenzaprine Hcl 10 Mg Tablet PO Q12H PRN Muscle Spasm, Neck pain Dextrose 12.5 gm 11/14/24 09:55 Dextrose 50% 25 Gm/50 Ml Syringe IV PUSH PRN PRN Hypoglycemia Protocol Diclofenac Sodium 1 applic 11/14/24 09:00 11/14/24 14:10 Diclofenac Sodium 1% 100 Gm Gel (*Bkc) TOPICAL 1 applic QID VALENTIN Administration Furosemide 20 mg 11/14/24 09:00 11/14/24 09:12 Furosemide 20 Mg Tablet PO 20 mg DAILY VALENTIN Administration Gabapentin 300 mg 11/14/24 09:00 11/14/24 14:10 Gabapentin 300 Mg Capsule PO 300 mg TID VALENTIN Administration Glucagon 1 mg 11/14/24 09:55 Glucagon For Inj 1 Mg Vial IM PRN PRN Hypoglycemia Protocol Glucose 15 gm 11/14/24 09:55 Glucose Oral Gel 15 Gm Of Glucse In 37.5 Gm Tube PO PRN PRN Hypoglycemia Protocol Dextrose 1,000 mls @ 100 mls/hr 11/14/24 09:55 Dextrose 5% 1,000 Ml IVPB PRN PRN Hypoglycemia Protocol Insulin Aspart 3 - 6 units 11/14/24 12:00 11/14/24 14:10 Insulin Aspart (*Bkc) 100 Units/Ml SUB-Q Not Given TIDWM [facility] Protocol Insulin Aspart 1 - 2 units 11/14/24 21:00 Insulin Aspart (*Bkc) 100 Units/Ml SUB-Q HS [facility] Protocol Ondansetron HCl 4 mg 11/13/24 22:12 11/14/24 01:06 Ondansetron Inj 4 Mg/2 Ml Vial IV PUSH 4 mg Q4H PRN Administration Nausea Pantoprazole Sodium 40 mg 11/14/24 09:00 11/14/24 09:12 Pantoprazole 40 Mg Tablet PO 40 mg DAILY [facility] Administration Pioglitazone HCl 30 mg 11/15/24 09:00 Pioglitazone Hcl 30 Mg Tablet PO DAILY [facility] Polyethylene Glycol 17 gm 11/14/24 04:51 Polyethylene Glycol 3350 17 Gm Powd.Pack PO DAILY PRN constipation Senna 17.2 mg 11/14/24 10:57 Sennosides 8.6 Mg Tablet PO Q12H PRN constipation Tamsulosin HCl 0.4 mg 11/14/24 09:00 11/14/24 09:12 Tamsulosin Hcl 0.4 Mg Capsule PO 0.4 mg QAM [facility] Administration Warfarin Sodium 6 mg 11/15/24 17:00 Warfarin (*Pbkc) 3 Mg Tablet PO DAILY@1700 [facility] Radiology Results: ITS Impressions Chest X-Ray 11/13/24 18:00 IMPRESSION: Cardiomegaly with congestive renate. Bilateral interstitial thickening suggestive of pulmonary edema versus pneumonitis. Clinical correlation advised. Head CT 11/13/24 18:40 IMPRESSION: No acute intracranial findings. Chest/Abdomen/Pelvis CTA 11/13/24 21:05 IMPRESSION: CHEST: 1. No definite pulmonary embolism. Filling defects in the right lower lobe branches are most likely artifactual. 2. Bilateral groundglass appearance suggestive of atelectasis versus pneumonia versus edema. 3. A right thyroid nodule. ABDOMEN/PELVIS: 1. No evidence of appendicitis, diverticulitis or intestinal obstruction. 2. Sliding hiatus hernia. Labs Labs: Laboratory Results - last 24 hr 11/13/24 11/13/24 11/14/24 18:14 22:54 02:49 WBC 7.6 RBC 2.71 L Hgb 8.6 L Hct 27.8 L MCV 102.6 H MCH 31.7 MCHC 30.9 L RDW 17.0 H Plt Count 205 MPV 11.5 H Immature Gran % (Auto) 0.4 Neut % (Auto) 66.7 Lymph % (Auto) 19.7 [place] % (Auto) 8.0 Eos % (Auto) 4.3 Baso % (Auto) 0.9 Lymph # (Auto) 1.50 [place] # (Auto) 0.6 Eos # (Auto) 0.3 Baso # (Auto) 0.1 Abs Immat Gran (auto) 0.03 Absolute Neuts (auto) 5.1 Absolute Nucleated RBC 0.000 Nucleated RBC % 0.0 PT 32.2 H INR 3.0 APTT 70.8 H Sodium 135 L Potassium 5.4 H Chloride 102 Carbon Dioxide 26 Anion Gap 7 BUN 30 H D Creatinine 1.26 H Estim Creat Clear Calc 41 Estimated GFR 41 L Glucose 136 H POC Capillary Glucose Lactic Acid 2.2 H 1.1 Calcium 9.1 Magnesium Total Bilirubin 0.4 AST 17 ALT 15 Alkaline Phosphatase 76 Troponin I < 0.012 NT-Pro-B Natriuret Pep 784 H Total Protein 6.0 L Albumin 3.1 L TSH 6.460 H Free T4 Total T3 Urine Color Yellow Urine Appearance Clear Urine pH 8.0 Ur Specific [place] 1.017 Urine Protein Trace Urine Glucose (UA) Negative Urine Ketones Negative Ur Blood (Man) Negative Urine Nitrate Negative Urine Bilirubin Negative Urine Urobilinogen 0.2 Leukocyte Esterase Rfl Negative Urine RBC 0-2 Urine WBC 0-5 Ur Squamous Epith Cells None seen Urine Bacteria None seen Urine Casts 0-2 11/14/24 11/14/24 06:49 13:45 WBC 7.0 RBC 2.35 L Hgb 7.4 L Hct 24.0 L MCV 102.1 H MCH 31.5 MCHC 30.8 L RDW 16.9 H Plt Count 197 MPV 11.3 H Immature Gran % (Auto) Neut % (Auto) Lymph % (Auto) [place] % (Auto) Eos % (Auto) Baso % (Auto) Lymph # (Auto) [place] # (Auto) Eos # (Auto) Baso # (Auto) Abs Immat Gran (auto) Absolute Neuts (auto) Absolute Nucleated RBC Nucleated RBC % PT 34.5 H INR 3.3 APTT Sodium 135 L Potassium 4.7 Chloride 104 Carbon Dioxide 29 Anion Gap 2 L BUN 28 H Creatinine 1.19 H Estim Creat Clear Calc 43 Estimated GFR 44 L Glucose 128 H POC Capillary Glucose 174 H Lactic Acid Calcium 8.6 Magnesium 2.0 Total Bilirubin AST ALT Alkaline Phosphatase Troponin I NT-Pro-B Natriuret Pep Total Protein Albumin TSH Free T4 1.52 Total T3 0.81 L Urine Color Urine Appearance Urine pH Ur Specific [place] Urine Protein Urine Glucose (UA) Urine Ketones Ur Blood (Man) Urine Nitrate Urine Bilirubin Urine Urobilinogen Leukocyte Esterase Rfl Urine RBC Urine WBC Ur Squamous Epith Cells Urine Bacteria Urine Casts
[2024-11-14 16:58] LABS: Glucose Point of Care 165 mg/dl (65-105)
[2024-11-14] MEDS: ATORVASTATIN 20 MG TABLET PO (20:28)
[2024-11-14] MEDS: ACETAMINOPHEN 500 MG TABLET 1000 MG PO (20:41)
[2024-11-14 22:03] LABS: Glucose Point of Care 184 mg/dl (65-105)
[2024-11-15] VITALS (13 sets, daily range): BP systolic 105–132; BP diastolic 47–72; PULSE 73–96; RESP 16–20; TEMP 36.4–36.8; O2SAT 97–100
[2024-11-15 04:50] LABS: Mean Corpuscular HGB Conc 30.4 g/dl (32-36); Mean Corpuscular Hemoglobin 31.1 pg (26-34); Mean Corpuscular Volume 102.2 fl (80-100); Mean Platelet Volume 11.5 fl (7.4-10.4); Platelet Count Result 202 k/mm3 (150-375); Red Blood Count 2.25 M/mm3 (4.2-5.4); Red Cell Distribution Width 17.2 % (11.5-14.5); White Blood Count 7.3 K/mm3 (4.5-10.0)
[2024-11-15 05:02] LABS: Prothrombin Time 32.1 Seconds (11.1-14.7)
[2024-11-15 05:04] LABS: Anion Gap 5 mmol/L (4-12); Blood Urea Nitrogen 28 mg/dL (7-17); Calcium 8.5 mg/dL (8.4-10.2); Carbon Dioxide 26 mmol/L (22-30); Chloride 103 mmol/L (98-107); Estimated CRCL calculation 41 ml/min; Estimated Glomerular Filt Rate 41; Glucose 142 mg/dL (65-110); Magnesium 2.1 mg/dL (1.6-2.3); Potassium 4.7 mmol/L (3.4-5.0); Sodium 134 mmol/L (137-145)
[2024-11-15 07:32] LABS: Glucose Point of Care 109 mg/dl (65-105)
[2024-11-15] MEDS: PIOGLITAZONE HCL 30 MG TABLET PO (08:49)
[2024-11-15] MEDS: GABAPENTIN 300 MG CAPSULE PO ×3 (08:49→17:53)
[2024-11-15] MEDS: TAMSULOSIN HCL 0.4 MG CAPSULE PO (08:49)
[2024-11-15] MEDS: PANTOPRAZOLE 40 MG TABLET PO (08:49)
[2024-11-15] MEDS: FUROSEMIDE 20 MG TABLET PO (08:49)
[2024-11-15] MEDS: MAG HYDROX/AL HYDROX/SIMETH 30 ML UDC 10 ML PO ×2 (08:49→20:20)
[2024-11-15] MEDS: DICLOFENAC SODIUM 1% 100 GM GEL (*BKC) 1 APPLIC TOPICAL ×3 (08:50→17:53)
--- NOTE | 2024-11-15 11:16 | P.PNCA_ITS ---
Progress Note: A&P Assessment and Plan (1) Syncope: Code(s): R55 - Syncope and collapse Status: Acute Assessment and Plan: 79-year-old female with CHFpEF, hypertension, diabetes mellitus, history of DVT on anticoagulation with warfarin. Patient admitted from [facility] with an episode of loss of consciousness, found to be hypotensive and bradycardic by EMS. EKG shows sinus rhythm, first-degree AV block, RBBB. On telemetry, she has predominantly been in sinus rhythm, first-degree AV block. No significant pauses. -continue to monitor on telemetry for now. Plan on 30 day event monitor at discharge, anticipated tomorrow -avoid aggressive diuresis for now. -recent echo showed preserved LV systolic function. -TSH within normal limits. -outpatient cardiology follow-up -patient may resume outpatient physical therapy after hospital discharge (2) Chronic diastolic CHF (congestive heart failure): Code(s): I50.32 - Chronic diastolic (congestive) heart failure Status: Acute Assessment and Plan: Diuretic on hold for now. May use gentle diuresis on p.r.n. basis. Keep legs elevated. (3) Hypertension associated with diabetes: Code(s): E11.59 - Type 2 diabetes mellitus with other circulatory complications; I15.2 - Hypertension secondary to endocrine disorders Status: Acute Assessment and Plan: Management as per primary team Subjective Date/time seen: 11/15/24 11:16 Interval history: 11/15/2024-patient reports generalized fatigue. No chest pain or shortness of breath. No recurrent dizziness or syncope. On telemetry, she has been in predominantly sinus rhythm, first-degree AV block, RBBB. Review of Systems Review of Systems: General: Positive for fatigue Psychological: Positive for anxiety Ophthalmic: negative for loss of vision ENT: Negative for epistaxis, headaches Allergy and immunology: Negative for hives, nasal congestion Hematologic and lymphatic: Negative for overt bleeding problems Endocrine: Negative for hot flashes, palpitations Respiratory: Negative for cough, hemoptysis Cardiovascular: Negative for chest pain, positive for syncope Gastrointestinal: Negative for abdominal pain, nausea, vomiting, hematochezia Musculoskeletal: Positive for joint pain Neurological: Positive for generalized weakness, unable to walk Dermatological: Negative for rash, skin discoloration Exam Narrative: PHYSICAL EXAMINATION: GENERAL: Obese, Alert, oriented, no acute distress MENTAL STATUS: affect appropriate to mood EYES: Extraocular movements intact, no pallor EARS: External ears appear normal, hearing grossly normal NOSE: Normal and patent, no discharge MOUTH: Mucous membranes moist, tongue normal NECK: Supple, no JVD CHEST: Good respiratory effort, clear to auscultation HEART: Normal rate, regular rhythm, normal S1 and S2, no audible murmurs ABDOMEN: Soft, nontender NEUROLOGICAL: Alert, oriented, normal speech, no gross motor deficits MUSCULOSKELETAL: No major deformity, no amputation EXTREMITIES: Bilateral pedal edema with erythema SKIN: Abdomen lower extremities, no cyanosis PSYCHIATRIC: Normal mood, appropriate affect Objective Data Vital Signs Vital Signs: Vital Signs - 24 hr 11/14/24 11:26 11/14/24 11:26 11/14/24 12:00 Temperature 36.8 C Pulse Rate 81 81 88 Respiratory Rate 20 20 Blood Pressure 123/68 Pulse Oximetry 96 99 Oxygen Delivery Room Air Fraction of Inspired Oxygen 1 11/14/24 15:36 11/14/24 15:36 11/14/24 16:00 Temperature 36.7 C Pulse Rate 88 88 79 Respiratory Rate 20 24 H Blood Pressure 102/49 L Pulse Oximetry 99 100 Oxygen Delivery Room Air Fraction of Inspired Oxygen 1 11/14/24 18:00 11/14/24 20:00 11/14/24 20:00 Temperature 36.7 C Pulse Rate 79 96 Respiratory Rate 19 Blood Pressure 111/50 L Pulse Oximetry 97 Oxygen Delivery Room Air Fraction of Inspired Oxygen 11/14/24 20:00 11/14/24 22:00 11/15/24 00:00 Temperature 36.7 C Pulse Rate 91 86 79 Respiratory Rate 18 Blood Pressure 112/54 L Pulse Oximetry 99 Oxygen Delivery Fraction of Inspired Oxygen 11/15/24 00:00 11/15/24 00:00 11/15/24 02:30 Temperature Pulse Rate 76 78 Respiratory Rate Blood Pressure Pulse Oximetry Oxygen Delivery Room Air Fraction of Inspired Oxygen 11/15/24 04:00 11/15/24 04:00 11/15/24 04:00 Temperature 36.7 C Pulse Rate 77 76 Respiratory Rate 20 Blood Pressure 108/50 L Pulse Oximetry 100 Oxygen Delivery Room Air Fraction of Inspired Oxygen 11/15/24 06:00 11/15/24 08:00 11/15/24 08:00 Temperature 36.4 C Pulse Rate 73 82 82 Respiratory Rate 16 16 Blood Pressure 132/57 L Pulse Oximetry 100 100 Oxygen Delivery Room Air Fraction of Inspired Oxygen 1 11/15/24 08:00 11/15/24 09:41 Temperature Pulse Rate 82 82 Respiratory Rate Blood Pressure Pulse Oximetry Oxygen Delivery Fraction of Inspired Oxygen Intake/Output Intake/Output: Intake & Output 11/12/24 11/13/24 11/14/24 11/15/24 23:59 23:59 23:59 23:59 Intake Total 100 2222.5 550 Output Total 1950 400 Balance 100 272.5 150 Meds/Results Medications: Active Medications Generic Name Dose Route Start Last Admin Trade Name Freq PRN Reason Stop Dose Admin Acetaminophen 1,000 mg 11/14/24 10:57 11/14/24 20:41 Acetaminophen 500 Mg Tablet PO 1,000 mg Q6H PRN Administration fever 1-3 or pain Al Hydrox/Mg Hydrox/Simethicone 10 ml 11/14/24 05:36 11/15/24 08:49 Mag Hydrox/Al Hydrox/Simeth 30 Ml Udc PO 10 ml Q4-6H PRN Administration heartburn Atorvastatin Calcium 20 mg 11/14/24 21:00 11/14/24 20:28 Atorvastatin 20 Mg Tablet PO 20 mg HS VALENTIN Administration Cyclobenzaprine HCl 10 mg 11/14/24 04:51 Cyclobenzaprine Hcl 10 Mg Tablet PO Q12H PRN Muscle Spasm, Neck pain Dextrose 12.5 gm 11/14/24 09:55 Dextrose 50% 25 Gm/50 Ml Syringe IV PUSH PRN PRN Hypoglycemia Protocol Diclofenac Sodium 1 applic 11/14/24 09:00 11/15/24 08:50 Diclofenac Sodium 1% 100 Gm Gel (*Bkc) TOPICAL 1 applic QID VALENTIN Administration Furosemide 20 mg 11/14/24 09:00 11/15/24 08:49 Furosemide 20 Mg Tablet PO 20 mg DAILY VALENTIN Administration Gabapentin 300 mg 11/14/24 09:00 11/15/24 08:49 Gabapentin 300 Mg Capsule PO 300 mg TID VALENTIN Administration Glucagon 1 mg 11/14/24 09:55 Glucagon For Inj 1 Mg Vial IM PRN PRN Hypoglycemia Protocol Glucose 15 gm 11/14/24 09:55 Glucose Oral Gel 15 Gm Of Glucse In 37.5 Gm Tube PO PRN PRN Hypoglycemia Protocol Dextrose 1,000 mls @ 100 mls/hr 11/14/24 09:55 Dextrose 5% 1,000 Ml IVPB PRN PRN Hypoglycemia Protocol Insulin Aspart 3 - 6 units 11/14/24 12:00 11/15/24 08:52 Insulin Aspart (*Bkc) 100 Units/Ml SUB-Q Not Given TIDWM [facility] Protocol Insulin Aspart 1 - 2 units 11/14/24 21:00 11/14/24 22:14 Insulin Aspart (*Bkc) 100 Units/Ml SUB-Q Not Given HS [facility] Protocol Ondansetron HCl 4 mg 11/13/24 22:12 11/14/24 01:06 Ondansetron Inj 4 Mg/2 Ml Vial IV PUSH 4 mg Q4H PRN Administration Nausea Pantoprazole Sodium 40 mg 11/14/24 09:00 11/15/24 08:49 Pantoprazole 40 Mg Tablet PO 40 mg DAILY VALENTIN Administration Pioglitazone HCl 30 mg 11/15/24 09:00 11/15/24 08:49 Pioglitazone Hcl 30 Mg Tablet PO 30 mg DAILY VALENTIN Administration Polyethylene Glycol 17 gm 11/14/24 04:51 Polyethylene Glycol 3350 17 Gm Powd.Pack PO DAILY PRN constipation Senna 17.2 mg 11/14/24 10:57 Sennosides 8.6 Mg Tablet PO Q12H PRN constipation Tamsulosin HCl 0.4 mg 11/14/24 09:00 11/15/24 08:49 Tamsulosin Hcl 0.4 Mg Capsule PO 0.4 mg QAM VALENTIN Administration Warfarin Sodium 6 mg 11/15/24 17:00 Warfarin (*Pbkc) 3 Mg Tablet PO DAILY@1700 [facility] Radiology Results: ITS Impressions Chest X-Ray 11/13/24 18:00 IMPRESSION: Cardiomegaly with congestive renate. Bilateral interstitial thickening suggestive of pulmonary edema versus pneumonitis. Clinical correlation advised. Head CT 11/13/24 18:40 IMPRESSION: No acute intracranial findings. Chest/Abdomen/Pelvis CTA 11/13/24 21:05 IMPRESSION: CHEST: 1. No definite pulmonary embolism. Filling defects in the right lower lobe branches are most likely artifactual. 2. Bilateral groundglass appearance suggestive of atelectasis versus pneumonia versus edema. 3. A right thyroid nodule. ABDOMEN/PELVIS: 1. No evidence of appendicitis, diverticulitis or intestinal obstruction. 2. Sliding hiatus hernia. Labs Labs: Laboratory Results - last 24 hr 11/14/24 11/14/2411/14/25 13:45 16:02 22:00 WBC RBC Hgb Hct MCV MCH MCHC RDW Plt Count MPV PT INR Sodium Potassium Chloride Carbon Dioxide Anion Gap BUN Creatinine Estim Creat Clear Calc Estimated GFR Glucose POC Capillary Glucose 174 H 165 H 184 H Calcium Magnesium 11/15/24 11/15/24 04:43 07:23 WBC 7.3 RBC 2.25 L Hgb 7.0 L Hct 23.0 L MCV 102.2 H MCH 31.1 MCHC 30.4 L RDW 17.2 H Plt Count 202 MPV 11.5 H PT 32.1 H INR 3.0 Sodium 134 L Potassium 4.7 Chloride 103 Carbon Dioxide 26 Anion Gap 5 BUN 28 H Creatinine 1.26 H Estim Creat Clear Calc 41 Estimated GFR 41 L Glucose 142 H POC Capillary Glucose 109 H Calcium 8.5 Magnesium 2.1
[2024-11-15 11:36] LABS: Glucose Point of Care 132 mg/dl (65-105)
--- NOTE | 2024-11-15 15:35 | P.PNIM_ITS ---
Progress Note: A&P Assessment and Plan (1) Cardiac related syncope: Code(s): R55 - Syncope and collapse Status: Acute (2) Chronic anticoagulation: Code(s): Z79.01 - skilled nursing (current) use of anticoagulants Status: Acute (3) Chronic kidney disease, stage 3a: Code(s): N18.31 - Chronic kidney disease, stage 3a Status: Acute (4) Elevated TSH: Code(s): R79.89 - Other specified abnormal findings of blood chemistry Status: Acute Plan Patient likely had syncope due to cardiac arrhythmia possible sinus pause. The patient has not had any prolonged pauses since presentation to the ER. EKG did demonstrate first-degree AV block. Will monitor the patient in IMU. The patient did receive IV fluid boluses but blood pressures have been normal in the patient has diffuse lower extremity edema. Will stop IV fluid hydration. Will repeat electrolyte panel with a.m. labs. Patient does have chronic anemia hemoglobin appears stable compared to recent labs. Her INR was therapeutic at 3. Will repeat iron are level in a.m.. Will re-evaluate whether to adjust warfarin dosing depending on a.m. labs. The patient has no evidence of acute bleeding. Patient would benefit from event monitor at discharge. Will consult Cardiology. No need to repeat echocardiogram is patient had 1 within the last couple of months. Patient had mildly elevated TSH at the time of completion of of documentation T3 and free T4 had returned. Labs seem consistent with euthyroid sick. Not likely playing a component in the patient syncope. patient currently stats feeling better not sure what exactly happened to her with slow HR, seen by organ pipe maker metal her recent cardiac echo was normal, patient is clinically stable now, will monitor on tele, will do orthostatic checks, may discharge back to rehab tomorrow. patient will need 30 days event monitor upon discharge, will monitor. Subjective Date/time seen: 11/15/24 15:35 Interval history: Unresponsive H&P-Narrative: 79-year-old female with past medical history of DVTs, grade 1 diastolic dysfunction, rheumatoid arthritis, chronic kidney disease stage 3, morbid obesity and type 2 diabetes mellitus among other comorbidities who presented to the ER from acute rehab facility via EMS due to unresponsive episode. The patient does not remember exactly why she came to the hospital. The patient was alert oriented person, place and time but had delayed responses compared to prior interviews with the patient. She does not remember exactly why she was brought to the hospital. On EMS arrival to the facility she was noted to be bradycardic and hypotensive. The patient received IV push of epinephrine in the field due to heart rate of 30. The patient's oxygen saturation was also noted to be 70s on room air and she was placed on 5 L in the field. When she arrived to the ER her oxygen saturation was normal but when she falls asleep it is noted that the patient does have episodes of apnea at the time my evaluation. Patient denies any known history of obstructive sleep apnea. She denies any chest pain or palpitations. In the ER she reported that she was feeling ?cookoo? and felt worse during physical therapy just prior to this episode happening. She did not have any associated nausea, diaphoresis or chest pain. She has had several episodes of short sinus pauses 2-3 seconds since presentation to the hospital but has not had any high-degree heart block noted. She had a recent echocardiogram in September of 2024 patient currently stats feeling better not sure what exactly happened to her with slow HR, seen by organ pipe maker metal her recent cardiac echo was normal, patient is clinically stable now, will monitor on tele, will do orthostatic checks, may discharge back to rehab tomorrow. patient will need 30 days event monitor upon discharge, will monitor. Review of Systems Review of Systems: 12 systems were reviewed with pertinent positives and negatives per HPI. Except as documented in the HPI, all other systems were reviewed and are negative. Exam Narrative: Morbidly obese with BMI of 50 Patient is comfortable, NAD HEENT: eyes are clear and none icteric LUNGS:CTA HEART: RR S1S2 ABD: BS+, Soft and nontender Lower extremities: no edema SKIN: nonjaundiced Neuro: grossly intact. Objective Data Vital Signs Vital Signs: Vital Signs - 24 hr 11/14/24 15:36 11/14/24 15:36 11/14/24 16:00 Temperature 36.7 C Pulse Rate 88 88 79 Respiratory Rate 20 24 H Blood Pressure 102/49 L Pulse Oximetry 99 100 Oxygen Delivery Room Air Fraction of Inspired Oxygen 1 11/14/24 18:00 11/14/24 20:00 11/14/24 20:00 Temperature 36.7 C Pulse Rate 79 96 Respiratory Rate 19 Blood Pressure 111/50 L Pulse Oximetry 97 Oxygen Delivery Room Air Fraction of Inspired Oxygen 11/14/24 20:00 11/14/24 22:00 11/15/24 00:00 Temperature 36.7 C Pulse Rate 91 86 79 Respiratory Rate 18 Blood Pressure 112/54 L Pulse Oximetry 99 Oxygen Delivery Fraction of Inspired Oxygen 11/15/24 00:00 11/15/24 00:00 11/15/24 02:30 Temperature Pulse Rate 76 78 Respiratory Rate Blood Pressure Pulse Oximetry Oxygen Delivery Room Air Fraction of Inspired Oxygen 11/15/24 04:00 11/15/24 04:00 11/15/24 04:00 Temperature 36.7 C Pulse Rate 77 76 Respiratory Rate 20 Blood Pressure 108/50 L Pulse Oximetry 100 Oxygen Delivery Room Air Fraction of Inspired Oxygen 11/15/24 06:00 11/15/24 08:00 11/15/24 08:00 Temperature 36.4 C Pulse Rate 73 82 82 Respiratory Rate 16 16 Blood Pressure 132/57 L Pulse Oximetry 100 100 Oxygen Delivery Room Air Fraction of Inspired Oxygen 1 11/15/24 08:00 11/15/24 09:41 11/15/24 11:39 Temperature Pulse Rate 82 82 82 Respiratory Rate 16 Blood Pressure Pulse Oximetry 100 Oxygen Delivery Room Air Fraction of Inspired Oxygen 11/15/24 11:39 11/15/24 11:44 Temperature 36.4 C L Pulse Rate 82 84 Respiratory Rate 20 Blood Pressure 105/55 L Pulse Oximetry 97 Oxygen Delivery Fraction of Inspired Oxygen Intake/Output Intake/Output: Intake & Output 11/12/24 11/13/24 11/14/24 11/15/24 23:59 23:59 23:59 23:59 Intake Total 100 2222.5 790 Output Total 1950 1000 Balance 100 272.5 -210 Meds/Results Medications: Active Medications Generic Name Dose Route Start Last Admin Trade Name Freq PRN Reason Stop Dose Admin Acetaminophen 1,000 mg 11/14/24 10:57 11/14/24 20:41 Acetaminophen 500 Mg Tablet PO 1,000 mg Q6H PRN Administration fever 1-3 or pain Al Hydrox/Mg Hydrox/Simethicone 10 ml 11/14/24 05:36 11/15/24 08:49 Mag Hydrox/Al Hydrox/Simeth 30 Ml Udc PO 10 ml Q4-6H PRN Administration heartburn Atorvastatin Calcium 20 mg 11/14/24 21:00 11/14/24 20:28 Atorvastatin 20 Mg Tablet PO 20 mg HS VALENTIN Administration Cyclobenzaprine HCl 10 mg 11/14/24 04:51 Cyclobenzaprine Hcl 10 Mg Tablet PO Q12H PRN Muscle Spasm, Neck pain Dextrose 12.5 gm 11/14/24 09:55 Dextrose 50% 25 Gm/50 Ml Syringe IV PUSH PRN PRN Hypoglycemia Protocol Diclofenac Sodium 1 applic 11/14/24 09:00 11/15/24 13:26 Diclofenac Sodium 1% 100 Gm Gel (*Bkc) TOPICAL 1 applic QID VALENTIN Administration Furosemide 20 mg 11/14/24 09:00 11/15/24 08:49 Furosemide 20 Mg Tablet PO 20 mg DAILY VALENTIN Administration Gabapentin 300 mg 11/14/24 09:00 11/15/24 13:26 Gabapentin 300 Mg Capsule PO 300 mg TID VALENTIN Administration Glucagon 1 mg 11/14/24 09:55 Glucagon For Inj 1 Mg Vial IM PRN PRN Hypoglycemia Protocol Glucose 15 gm 11/14/24 09:55 Glucose Oral Gel 15 Gm Of Glucse In 37.5 Gm Tube PO PRN PRN Hypoglycemia Protocol Dextrose 1,000 mls @ 100 mls/hr 11/14/24 09:55 Dextrose 5% 1,000 Ml IVPB PRN PRN Hypoglycemia Protocol Insulin Aspart 3 - 6 units 11/14/24 12:00 11/15/24 11:56 Insulin Aspart (*Bkc) 100 Units/Ml SUB-Q Not Given TIDWM VALENTIN Protocol Insulin Aspart 1 - 2 units 11/14/24 21:00 11/14/24 22:14 Insulin Aspart (*Bkc) 100 Units/Ml SUB-Q Not Given HS VALENTIN Protocol Ondansetron HCl 4 mg 11/13/24 22:12 11/14/24 01:06 Ondansetron Inj 4 Mg/2 Ml Vial IV PUSH 4 mg Q4H PRN Administration Nausea Pantoprazole Sodium 40 mg 11/14/24 09:00 11/15/24 08:49 Pantoprazole 40 Mg Tablet PO 40 mg DAILY VALENTIN Administration Perflutren Lipid Microsphere 0 ml 11/15/24 13:56 Perflutren Lipid Microspheres 1.5 Ml Vial Diluted To 10 Ml Total Volume IV PUSH 11/18/24 13:56 ONCE PRN adequate visualization Protocol Pioglitazone HCl 30 mg 11/15/24 09:00 11/15/24 08:49 Pioglitazone Hcl 30 Mg Tablet PO 30 mg DAILY [facility] Administration Polyethylene Glycol 17 gm 11/14/24 04:51 Polyethylene Glycol 3350 17 Gm Powd.Pack PO DAILY PRN constipation Senna 17.2 mg 11/14/24 10:57 Sennosides 8.6 Mg Tablet PO Q12H PRN constipation Tamsulosin HCl 0.4 mg 11/14/24 09:00 11/15/24 08:49 Tamsulosin Hcl 0.4 Mg Capsule PO 0.4 mg QAM [facility] Administration Warfarin Sodium 6 mg 11/15/24 17:00 Warfarin (*Pbkc) 3 Mg Tablet PO DAILY@1700 [facility] Radiology Results: ITS Impressions Chest X-Ray 11/13/24 18:00 IMPRESSION: Cardiomegaly with congestive renate. Bilateral interstitial thickening suggestive of pulmonary edema versus pneumonitis. Clinical correlation advised. Head CT 11/13/24 18:40 IMPRESSION: No acute intracranial findings. Chest/Abdomen/Pelvis CTA 11/13/24 21:05 IMPRESSION: CHEST: 1. No definite pulmonary embolism. Filling defects in the right lower lobe branches are most likely artifactual. 2. Bilateral groundglass appearance suggestive of atelectasis versus pneumonia versus edema. 3. A right thyroid nodule. ABDOMEN/PELVIS: 1. No evidence of appendicitis, diverticulitis or intestinal obstruction. 2. Sliding hiatus hernia. Labs Labs: Laboratory Results - last 24 hr 11/14/24 11/14/24 11/15/24 16:02 22:00 04:43 WBC 7.3 RBC 2.25 L Hgb 7.0 L Hct 23.0 L MCV 102.2 H MCH 31.1 MCHC 30.4 L RDW 17.2 H Plt Count 202 MPV 11.5 H PT 32.1 H INR 3.0 Sodium 134 L Potassium 4.7 Chloride 103 Carbon Dioxide 26 Anion Gap 5 BUN 28 H Creatinine 1.26 H Estim Creat Clear Calc 41 Estimated GFR 41 L Glucose 142 H POC Capillary Glucose 165 H 184 H Calcium 8.5 Magnesium 2.1 11/15/24 11/15/24 07:23 11:28 WBC RBC Hgb Hct MCV MCH MCHC RDW Plt Count MPV PT INR Sodium Potassium Chloride Carbon Dioxide Anion Gap BUN Creatinine Estim Creat Clear Calc Estimated GFR Glucose POC Capillary Glucose 109 H 132 H Calcium Magnesium Quality VTE Prophylaxis VTE prophylaxis: pharmacologic ordered (Coumadin on hold briefly due to supratherapeutic INR)
[2024-11-15 16:24] LABS: Glucose Point of Care 173 mg/dl (65-105)
[2024-11-15] MEDS: WARFARIN (*PBKC) 3 MG TABLET 6 MG PO (17:53)
[2024-11-15] MEDS: ATORVASTATIN 20 MG TABLET PO (20:21)
[2024-11-15 20:52] LABS: Glucose Point of Care 207 mg/dl (65-105)
[2024-11-15] MEDS: INSULIN ASPART (*BKC) 100 UNITS/ML SUB-Q (21:35)
[2024-11-16] VITALS (14 sets, daily range): BP systolic 99–121; BP diastolic 35–84; PULSE 79–92; RESP 16–20; TEMP 36.4–36.7; O2SAT 95–99
--- NOTE | 2024-11-16 | ECHO_ITS ---
Patient Info Name: Akanksha Garner Age: 79 years : 1945 Gender: Female Ht: 63 in Wt: 276 lbs BSA: 2.44 m2 HR: 81 bpm BP: 105 / 84 mmHg Heart Rhythm: Atrial Fibrillation Technical Quality: Fair Exam Date: 11/16/2024 9:38 AM Exam Location: Echo Lab Patient Status: Inpatient Admit Date: 11/14/2024 Staff Ordering Physician: Joie Schwarz MD Biology Internship: Marsha Marcos RDCS Attending Provider: oJhanna Jensen DO Exam Type: CA echo dop color flow w con Study Info Indications R00.1 - Bradycardia, unspecified R55 - Syncope and collapse Complete two-dimensional, color flow and Doppler transthoracic echocardiogram is performed with contrast to opacify the left ventricle and to improve the deliniation of the left ventricle endocardial borders. Contrast/Agitated Saline Contrast/Ag. Saline: Definity Amount: 2.00 ml Administered By: Marsha Marcos RDCS Existing IV Access: Yes IV Access Condition: patent with no signs of infiltration Summary 1. Definity contrast administered improved wall motion interpretation. 2. Left ventricular chamber dimension is normal. 3. Left ventricular systolic function is normal, estimated at 60-65%. 4. The left ventricular diastolic function is normal. 5. E/e' 9 is minimally elevated. 6. Atrial fibrillation. 7. Left atrial chamber dimension is mildly enlarged. 8. There is trace mitral valve regurgitation. 9. There is mild tricuspid valve regurgitation. 10. No pulmonary hypertension, estimated pulmonary arterial systolic pressure is 39 mmHg. Left Ventricle E/e' 9 is minimally elevated. Atrial fibrillation. Definity contrast administered improved wall motion interpretation. Left ventricular chamber dimension is normal. Left ventricular systolic function is normal, estimated at 60-65%. The left ventricular diastolic function is normal. Right Ventricle Right ventricular systolic function is normal and with normal TAPSE 3.0 cm. Right ventricular chamber dimension is normal. Left Atria Left atrial chamber dimension is mildly enlarged. Right Atria Right atrial chamber dimension is normal. Aortic Valve The aortic valve is trileaflet. There is no aortic valve stenosis. There is no aortic valve regurgitation. Pulmonic Valve There is no pulmonic regurgitation. Mitral Valve There is no mitral valve stenosis. There is trace mitral valve regurgitation. Tricuspid Valve There is mild tricuspid valve regurgitation. No pulmonary hypertension, estimated pulmonary arterial systolic pressure is 39 mmHg. Pericardium/Pleural There is no pericardial effusion. Inferior Vena Cava Normal inferior vena cava with >50% collapse upon inspiration consistent with normal right atrial pressure, 5 mmHg. Aorta The aortic root size at the sinus of Valsalva is normal. Left Ventricular Outflow Tract Name Value Normal LVOT 2D LVOT Diameter 1.96 cm LVOT Doppler LVOT Peak Gradient 9 mmHg LVOT Mean Gradient 4 mmHg LVOT VTI 29.32 cm LVOT VTI/AV VTI Ratio 0.77 LVOT Stroke Volume 88.77 ml LVOT CO 7.23 l/min LVOT CI 2.97 L/min/m2 Pulmonic Valve Name Value Normal RVOT Doppler RVOT Peak Gradient 3 mmHg PV Doppler PV Peak Gradient 6 mmHg Mitral Valve Name Value Normal MV Doppler MV Decel [place] 563.74 cm/s2 MV PHT 0 s MV Area (PHT) 3.27 cm2 4.00-5.00 MV Diastolic Function MV E Peak Velocity 130.78 cm/s MV A Peak Velocity 1.60 cm/s MV E/A 81.69 MV Decel Time 0 s MV Annular TDI MV E/e' (Septal) 8.69 <=8.00 MV E/e' (Lateral) 10.76 <=8.00 MV E/e' (Average) 9.73 Tricuspid Valve Name Value Normal TV Regurgitation Doppler TR Peak Velocity 289.48 cm/s TR Peak Gradient 34 mmHg Estimated PAP/RSVP RA Pressure 5 mmHg <=5 PA Systolic Pressure 39 mmHg <36 RV Systolic Pressure 39 mmHg <36 Aorta Name Value Normal Ascending Aorta Ao Root Diameter (MM) 3.18 cm Ao Root Diam Index (MM) 1.31 cm/m2 Aortic Valve Name Value Normal AV Doppler AV Peak Velocity 203.79 cm/s AV Peak Gradient 17 mmHg AV Mean Gradient 8 mmHg AV VTI 38.14 cm AV Area (Cont Eq VTI) 2.33 cm2 >=3.00 AV Area (Cont Eq Driss) 2.20 cm2 AV Regurgitation 2D LVOT Area 3.03 cm2 Ventricles Name Value Normal LV Dimensions 2D/MM IVS Diastolic Thickness (2D) 0.87 cm 0.60-1.00 LVID Diastole (2D) 5.04 cm 3.80-5.20 LVIW Diastolic Thickness (2D) 0.88 cm 0.60-0.90 LVID Systole (2D) 2.83 cm 2.20-3.50 LVOT Diameter 1.96 cm LV Mass (2D Cubed) 154.60 g 67.00-162.00 LV Mass Index (2D Cubed) 0.01 g/cm2 0.00-0.01 Relative Wall Thickness (2D) 0.35 LV Fractional Shortening/Ejection Fraction 2D/MM LV Fractional Shortening (2D) 44 % 27-45 LV EF (2D Teicholz) 75 % 54-74 LV Diastolic Volume (4C MOD) 81.15 ml LV EF (4C MOD) 65 % LV Diastolic Volume (2C MOD) 85.39 ml LV EF (2C MOD) 68 % LV Diastolic Volume (BP MOD) 86.32 ml 46.00-106.00 LV Diastolic Volume Index (BP MOD) 0.04 l/m2 0.03-0.06 LV Systolic Volume (BP MOD) 27.94 ml 14.00-42.00 LV Systolic Volume Index (BP MOD) 0.01 l/m2 0.01-0.02 LV EF (BP MOD) 68 % 54-74 LV Diastolic Length (4C) 8.36 cm LV Systolic Length (4C) 6.20 cm LV Stroke Volume (4C MOD) 52.47 ml Atria Name Value Normal LA Dimensions LA Dimension (MM) 6.33 cm 2.70-3.80 LA Volume (4C A-L) 61.88 ml LA Volume (BP A-L) 66.38 ml RA Dimensions RA Area (4C) 23.16 cm2 <=18.00 Report Signatures
[2024-11-16 04:05] LABS: Hematocrit 23.9 % (37.0-47.0); Hemoglobin 7.4 g/dL (12.0-15.0); Mean Platelet Volume 11.4 fl (7.4-10.4); Platelet Count Result 232 k/mm3 (150-375); Red Blood Count 2.39 M/mm3 (4.2-5.4); White Blood Count 7.8 K/mm3 (4.5-10.0)
[2024-11-16 04:16] LABS: Prothrombin Time 23.6 Seconds (11.1-14.7)
[2024-11-16 04:22] LABS: Anion Gap 2 mmol/L (4-12); Blood Urea Nitrogen 26 mg/dL (7-17); Calcium 8.6 mg/dL (8.4-10.2); Carbon Dioxide 30 mmol/L (22-30); Chloride 103 mmol/L (98-107); Estimated CRCL calculation 40 ml/min; Estimated Glomerular Filt Rate 41; Glucose 123 mg/dL (65-110); Potassium 4.4 mmol/L (3.4-5.0); Sodium 135 mmol/L (137-145)
[2024-11-16 08:03] LABS: Glucose Point of Care 120 mg/dl (65-105)
[2024-11-16] MEDS: PANTOPRAZOLE 40 MG TABLET PO (08:58)
[2024-11-16] MEDS: GABAPENTIN 300 MG CAPSULE PO ×3 (08:58→16:52)
[2024-11-16] MEDS: FUROSEMIDE 20 MG TABLET PO (08:58)
[2024-11-16] MEDS: PIOGLITAZONE HCL 30 MG TABLET PO (08:58)
[2024-11-16] MEDS: TAMSULOSIN HCL 0.4 MG CAPSULE PO (08:58)
[2024-11-16] MEDS: MAG HYDROX/AL HYDROX/SIMETH 30 ML UDC 10 ML PO (09:04)
[2024-11-16] MEDS: PERFLUTREN LIPID MICROSPHERES 1.5 ML VIAL DILUTED TO 10 ML TOTAL VOLUME IV PUSH (10:07)
--- NOTE | 2024-11-16 11:34 | IVDEFINITY ---
Prior to administration of IV Definity the patient was educated on the risks and benefits of the imaging enhancing agent including potential adverse side effects. The patient verbalized understanding. Allergies were verified. No exclusion criteria were identified and at least one of the following inclusion criteria were met: 1) physician request, 2) patient technically difficult to image (per the [place] [employer]chocardi[employer] guidelines of two or more segments not discernable within the apical view), or 3) questionable left ventricular function. ?
[2024-11-16 11:49] LABS: Glucose Point of Care 153 mg/dl (65-105)
--- NOTE | 2024-11-16 13:59 | PM.DS ---
DS: Summary Time Spent with Patient Time attestation: Total time spent providing and/or coordinating discharge services: DS: Data Data Completed and Pending Labs on day of discharge: Labs from last 24 hours 11/16/24 11/16/24 11/16/24 11:33 07:38 03:37 WBC 7.8 RBC 2.39 L Hgb 7.4 L Hct 23.9 L MCV 100.0 MCH 31.0 MCHC 31.0 L RDW 17.0 H Plt Count 232 MPV 11.4 H PT 23.6 H D INR 2.0 Sodium 135 L Potassium 4.4 Chloride 103 Carbon Dioxide 30 Anion Gap 2 L BUN 26 H Creatinine 1.26 H Estim Creat Clear Calc 40 Estimated GFR 41 L Glucose 123 H POC Capillary Glucose 153 H 120 H Calcium 8.6 Magnesium 2.0 Blood Type Antibody Screen 11/15/24 11/15/24 11/15/24 20:22 17:24 15:22 WBC RBC Hgb Hct MCV MCH MCHC RDW Plt Count MPV PT INR Sodium Potassium Chloride Carbon Dioxide Anion Gap BUN Creatinine Estim Creat Clear Calc Estimated GFR Glucose POC Capillary Glucose 207 H 173 H Calcium Magnesium Blood Type A Positive Antibody Screen Negative Discharge Plan Discharge Attending physician on discharge: Johanna Jensen Consulting providers: Bud Thakkar Discharging Clinician: Joie Schwarz Activity: as tolerated Diet: gestational diabetic Discharge Instructions: patient will be fitted with Holter monitor by cardiology, patient to follow discharge care instruction from her framework developer and follow up as scheduled, patient to follow up with his primary provider as soon as possible. Patient Instructions: Warfarin (By mouth) Patient Language: Slovenian Follow-up/Referrals: Bud Thakkar MD [Physician] - Lasha Mahmood MD [Primary Care Provider] - Discharge Medications: New warfarin 6 mg tablet 6 mg PO DAILY Qty: 30 0RF Continued sennosides [Senna Lax] 8.6 mg tablet 8.6 mg PO Q12H PRN (Reason: constipation) Rx Instructions: Give 2 tabs polyethylene glycol 3350 [Miralax] 17 gram powder in packet 17 g PO DAILY PRN (Reason: constipation) acetaminophen [Acetaminophen Extra Strength] 500 mg tablet 500 mg PO Q6H PRN (Reason: fever or pain) Rx Instructions: Take 2 tabs to make 1000 mg PRN atorvastatin 20 mg Tablet 20 mg PO HS gabapentin 100 mg Capsule 300 mg PO TID tamsulosin 0.4 mg Capsule 0.4 mg PO QAM Qty: 30 0RF diclofenac sodium [Voltaren Arthritis Pain] 1 % gel 4 g topical QID Qty: 100 0RF Rx Instructions: apply to single knee, ankle, foot; for foot includes sole/toes/top of foot furosemide [Lasix] 20 mg tablet 20 mg PO DAILY Qty: 30 0RF metformin 500 mg tablet 500 mg PO BID pantoprazole 40 mg tablet,delayed release (DR/EC) 40 mg PO DAILY pioglitazone 30 mg tablet 30 mg PO DAILY cyclobenzaprine 10 mg Tablet 10 mg PO Q12H PRN (Reason: Muscle Spasm, Neck pain) Qty: 30 0RF twqeexlt-ioowxccab-vuaajpyjjfp 10 ml PO Q4-5H PRN (Reason: heartburn) Rx Instructions: [id number] Discontinued warfarin 3 mg tablet 3 mg PO DAILY warfarin 4 mg tablet 4 mg PO DAILY Other Ambulatory Orders: CA cardiac event monitor (Routine) Timeframe: 1 Month Location: [facility] [place] Ordered By: Ermelinda Yao Date of admission: 11/14/24 01:35 Primary Care Provider: Lasha Mahmood Admitting Provider: Johanna Jensen Attending physician on admission: Johanna Jensen Condition: Stable
[2024-11-16] MEDS: ATORVASTATIN 20 MG TABLET PO (20:29)
[2024-11-16] MEDS: INSULIN ASPART (*BKC) 100 UNITS/ML SUB-Q (20:36)
[2024-11-16 21:05] LABS: Glucose Point of Care 238 mg/dl (65-105)
--- NOTE | 2024-11-16 23:30 | PC.NURSE ---
This patient, Akanksha Garner, was transferred to [[id number] ] on 11/16/24 at 2327. Personal belongings sent with patient. Report given to [Yasmin ]. Appropriate documentation sent with patient.
[2024-11-17] VITALS: PULSE 80
[2024-11-17 00:13] VITALS: PULSE 60
[2024-11-17 05:53] VITALS: BP 120/54; PULSE 81; RESP 18; TEMP 36.3; O2SAT 99
[2024-11-17 06:45] LABS: Hematocrit 27.1 % (37.0-47.0); Hemoglobin 8.2 g/dL (12.0-15.0); Mean Corpuscular HGB Conc 30.3 g/dl (32-36); Mean Corpuscular Hemoglobin 31.8 pg (26-34); Mean Platelet Volume 11.7 fl (7.4-10.4); Platelet Count Result 242 k/mm3 (150-375); Red Blood Count 2.58 M/mm3 (4.2-5.4); Red Cell Distribution Width 17.2 % (11.5-14.5); White Blood Count 6.9 K/mm3 (4.5-10.0)
[2024-11-17 06:55] LABS: Anion Gap 5 mmol/L (4-12); Blood Urea Nitrogen 25 mg/dL (7-17); Calcium 8.6 mg/dL (8.4-10.2); Carbon Dioxide 27 mmol/L (22-30); Chloride 103 mmol/L (98-107); Estimated CRCL calculation 46 ml/min; Estimated Glomerular Filt Rate 47; Glucose 138 mg/dL (65-110); Potassium 4.6 mmol/L (3.4-5.0); Sodium 135 mmol/L (137-145)
[2024-11-17 07:09] LABS: INR 1.6; Prothrombin Time 19.7 Seconds (11.1-14.7)
[2024-11-17 07:56] LABS: Glucose Point of Care 119 mg/dl (65-105)
[2024-11-17 08:00] VITALS: BP 117/53; PULSE 77; RESP 18; TEMP 36.5; O2SAT 100
[2024-11-17 08:01] VITALS: BP 126/59; PULSE 80; RESP 18; TEMP 36.5; O2SAT 95
[2024-11-17] MEDS: GABAPENTIN 300 MG CAPSULE PO (09:45)
[2024-11-17] MEDS: PANTOPRAZOLE 40 MG TABLET PO (09:45)
[2024-11-17] MEDS: TAMSULOSIN HCL 0.4 MG CAPSULE PO (09:45)
[2024-11-17] MEDS: FUROSEMIDE 20 MG TABLET PO (09:45)
[2024-11-17] MEDS: WARFARIN (*PBKC) 3 MG TABLET 6 MG PO (09:49)
[2024-11-17 11:50] LABS: Glucose Point of Care 161 mg/dl (65-105)
[2024-11-17 13:55] VITALS: BP 112/52; PULSE 84; RESP 16; TEMP 36.4; O2SAT 98
--- OUTSIDE RECORDS SUMMARY | 2024-11-20 05:55 | XMS_ITS | Clinical Summary ---
Author Organization [facility] Address [address] [place] [address] Care Team Providers Care Night Club Manager Name Role Phone Beth Peterson TAPING MACHINE OPERATOR Unavailable Allergies No known active [...] hyperosmolarity without nonketotic hyperglycemic-hyper osmolar coma (NKHHC) ([facility]) Per sliding scale 0-149 = [...] hyperosmolarity without nonketotic hyperglycemic-hyper osmolar coma (NKHHC) ([facility]) Take 1 tablet (500 mg [...] with hyperosmolarity without nonketotic hyperglycemic-hyperosmolar coma (NKHHC) ([facility]) 08/17/2021 Personal history of noncompl [...] Dates Next Due Influenza Adult (Generic) 08/15/2021,03/2017,05/29/2016,2014 [employer] ([employer]) COVID-19 AD26 VACCINE 0.5 ML IM SUSP [...] on file Legal Sex Female 2:51 PM SOUND DESIGNER Gender Identity Not on file Sexual Orientation Not on file Last Filed Vital Signs Vital Sign Reading Time Taken Comments Blood Pressure 122/45 09/13/2021 8:55 AM SOUND DESIGNER Pulse 76 09/13/2021 8:55 AM SOUND DESIGNER Temperature 36.7 C (98 F) 09/13/2021 8:55 AM SOUND DESIGNER Respiratory Rate 20 09/13/2021 8:55 AM SOUND DESIGNER Oxygen Saturation 97% 09/13/2021 8:55 AM SOUND DESIGNER Inhaled Oxygen Concentration - - Weight 103 kg (227 lb) 09/13/2021 8:55 AM SOUND DESIGNER Height 157.5 cm (5' 2 ) 07/15/2021 3:08 PM SOUND DESIGNER Body Mass Index 41.52 07/15/2021 3:08 PM SOUND DESIGNER Plan of Treatment Health Maintenance Due Date [...] home safety measures General No Theresa Belle drill press set up operator Procedure Name Priority Date/Time Associated Diagnosis Comments HEMOGLOBIN, GLYCOSYLATED Routine 08/29/2021 8:20 AM SOUND DESIGNER from Last 3 Months or Most Recently Relevant to Health Maintenance Results * (ABNORMAL) HEMOGLOBIN, GLYCOSYLATED (08/29/2021 8:20 AM SOUND DESIGNER) HGB A1C 8.3(H) 4.2 - 6.3 % [facility] Comment: Note: Hemoglobinopathies such as HbF, HbS, etc. may give incorrect results with this test. ESTIMATED AVG GLUCOSE 190 mg/dL [facility] Comment: (This value is a calculated estimate of the mean blood glucose over the last 60 days based on the patient's HgbA1c value. 08/29/2021 8:20 AM SOUND DESIGNER 08/29/2021 8:20 AM SOUND DESIGNER Ryan Contreras DO LABORATORY Final Result [facility] [address] [address] from Last 3 Months or Most Recently Relevant to Health Maintenance Advance Directives Documents on File Type Date Recorded Patient Housing Installer Expl anation DNR (Do Not Resuscitate) Documentation 08/22/2021 9:38 AM POLST * DNR (Latest Code Status on File) Date Activated Date Inactivated Comments 08/23/2021 9:40 AM * Full Code Date Activated Date Inactivated Comments 08/17/2021 2:39 PM 08/23/2021 9:40 AM * Full Code Date Activated Date Inactivated Comments 07/16/2021 12:10 AM 07/19/2021 10:01 PM Care Teams Night Club Manager Relationship Specialty Start Date End Date Beth Peterson NP Nurse Practitioner [facility] 08/14/21
--- OUTSIDE RECORDS SUMMARY | 2024-11-20 05:55 | XMS_ITS ---
Author Organization [facility] Address [address] [place], [place] [id number] Care Team Providers Care Clock And Watch Hands Painter Name Role Phone MI JEREZ Unavailable [phone] Lasha Mahmood Unavailable Unavailable REASON FOR VISIT *General care Encounters Encounter Location Date Provider Diagnosis [place] [address] [place], [place] [id number] 08/08/2023 MI JEREZ Plan Of Treatment No Information Progress Notes * MADISON GARNERDOB: 4 (79 yo F)Acc No.[id number]:08/08/2023 Patient: MADISON BENEDICT Provider: Silvia JEREZ :1945 A ge:77 Y S ex:Female Date:08/08/2023 [address] [id number] Subjective: * Chief Complaints: * 1 . *General care. * Medical History: Objective: * Vitals: Assessment: Plan: * Treatment: * Billing Information: * Visit Code: * Procedure Codes: * Electronic signature of FLOYD JEREZ DPM on 11/20/2024 at 05:54 AM CDT Sign off status: Pending * Provider: Silvia JEREZ Date: 1 10/09/2022 Generated for Vanessai ng/Fapriceg/eTransmitting on: 0 11/20/2024 05:54 AM CDT
--- OUTSIDE RECORDS SUMMARY | 2024-11-20 05:55 | XMS_ITS | Patient Health Record ---
Author Organization [facility] Address [address] [place], [place] [address] Care Team Providers Care Safety Council Director Name Role Phone MI JEREZ Unavailable [phone] Lasha Mahmood Unavailable Unavailable Allergies Allergen (clinical [...] 2 MG Oral for 30 Days Active Plan Of Treatment No Information Insurance Providers Payer Name Payer Address Payer Phone Subscriber Number Group Number Insured Name Patient Relationship to Insured Coverage Start Date Coverage End Date Medicare Part B [place] [address] [place] [address] [id number] MADISON GARNER Self - patient is the insured [facility] ([facility]) ATTN CLAIMS [address] [place] [address] [id number] MADISON GARNER Self - patient is the insured Medical (General) History Medical History History ICD Code kidney stones neuropathy Arthritis Bladder infections Diabetic Blood clots
--- OUTSIDE RECORDS SUMMARY | 2024-11-20 05:56 | XMS_ITS ---
Author Organization [facility] Address [address] [place], [place] [address] Care Team Providers Care Assembly Instructions Writer Name Role Phone MERI MI Unavailable [phone] Lasha Mahmood Unavailable Unavailable Allergies Allergen (clinical [...] 11/14/2023 Encounters Encounter Location Date Provider Diagnosis [place] [address] [place], [place] [id number] 11/14/2023 MI JEREZ Other hammer toe(s) (acquired), right foot M20.41 ; Tinea unguium B35.1 ; Other hammer toe(s) (acquired), left foot M20.42 ; Pain in right toe(s) M79.674 ; Pain in left toe(s) M79.675 ; 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 [...] Patient denies c hest pain, history of [place], irregular heartbeat. M usculoskeletal: Patient denies a [...] M79.675 6 . U nspecified atherosclerosis of tetlin arteries of extremities, bilateral legs - I70.203 [...] were emphasized. 3. U nspecified atherosclerosis of tetlin arteries of extremities, bilateral legs Notes: Patient [...] Information: * Visit Code: * Procedure Codes: 01697 DEBRIDE NAIL, 6 OR MORE. Modifiers: Q8 * Sign off status: Completed true * Provider: Silvia JEREZ Date: 0 11/14/2023 Generated for Nancy bruno/Ehsan/Regine on: 0 11/20/2024 05:55 AM CDT History and Physical Notes * [...]
== END 2024-11-17 16:00 | DRG 292 ==
LOC: ANHED 22:53 → ANHIMU 11-14 14:32 → ANH3MEDSUR 11-20 05:53 → ANHIMU 11-20 05:53
PROVIDERS: Admitting Provider Internal Medicine; Emergency Provider Student in an Organized Health Care Education/Training Program; PCP Family Medicine; Visit Provider Family Medicine
DX: I13.0 Hypertensive heart and chronic kidney disease with heart failure and stage 1 through stage 4 chronic kidney disease, or unspecified chronic kidney disease (principal); I50.32 Chronic diastolic (congestive) heart failure; Z68.42 Body mass index [BMI] 45.0-49.9, adult; I44.0 Atrioventricular block, first degree; I49.8 Other specified cardiac arrhythmias; R55 Syncope and collapse; E11.42 Type 2 diabetes mellitus with diabetic polyneuropathy; E66.01 Morbid (severe) obesity due to excess calories; E11.22 Type 2 diabetes mellitus with diabetic chronic kidney disease; E78.5 Hyperlipidemia, unspecified; K21.9 Gastro-esophageal reflux disease without esophagitis; M06.9 Rheumatoid arthritis, unspecified; N18.31 Chronic kidney disease, stage 3a; R60.1 Generalized edema; Z86.718 Personal history of other venous thrombosis and embolism; Z79.01 Long term (current) use of anticoagulants; Z79.84 Long term (current) use of oral hypoglycemic drugs; Z86.73 Personal history of transient ischemic attack (TIA), and cerebral infarction without residual deficits; Z90.49 Acquired absence of other specified parts of digestive tract; Z87.891 Personal history of nicotine dependence; Z66 Do not resuscitate
CPT/HCPCS: 36415; 70450; 71045; 71275; 74177; 80048; 80053; 81001; 82948; 83605; 83735; 83880; 84439; 84443; 84480; 84484; 85025; 85027; 85610; 85730; 86850; 86900; 86901; 93005; 96361; 96365; 96366; 96367; 96375; 99285; A9270; C8929; J0696; J1815; J2405; J7030; J7120; P9047; Q9957; Q9967

== ENCOUNTER 2024-11-21 10:16 | Outpatient (CLI) | payer MEDICARE, SELFPAY ==
--- OUTSIDE RECORDS SUMMARY | 2024-11-21 10:21 | XMS_ITS | Clinical Summary ---
Author Organization [facility] Address [address] [place] [address] Care Team Providers Care Retail Business Manager Name Role Phone Beth Peterson PEDIATRIC DENTIST Unavailable Allergies No known active allergies Medications [...] hyperosmolarity without nonketotic hyperglycemic-hyper osmolar coma (NKHHC) ([facility]) Per sliding scale 0-149 = 0 units [...] nonketotic hyperglycemic-hyper osmolar coma (NKHHC) ([facility]) Take 1 tablet (500 mg total) by [...] with hyperosmolarity without nonketotic hyperglycemic-hyperosmolar coma (NKHHC) ([facility]) 08/17/2021 Personal history of noncompl iance with [...] Dates Next Due Influenza Adult (Generic) 08/15/2021,03/2017,05/29/2016,2014 [employer] ([employer]) COVID-19 AD26 VACCINE 0.5 ML IM SUSP [...] on file Legal Sex Female 2:51 PM RUNNING INSTRUCTOR Gender Identity Not on file Sexual Orientation Not on file Last Filed Vital Signs Vital Sign Reading Time Taken Comments Blood Pressure 122/45 09/13/2021 8:55 AM RUNNING INSTRUCTOR Pulse 76 09/13/2021 8:55 AM RUNNING INSTRUCTOR Temperature 36.7 C (98 F) 09/13/2021 8:55 AM RUNNING INSTRUCTOR Respiratory Rate 20 09/13/2021 8:55 AM RUNNING INSTRUCTOR Oxygen Saturation 97% 09/13/2021 8:55 AM RUNNING INSTRUCTOR Inhaled Oxygen Concentration - - Weight 103 kg (227 lb) 09/13/2021 8:55 AM RUNNING INSTRUCTOR Height 157.5 cm (5' 2 ) 07/15/2021 3:08 PM RUNNING INSTRUCTOR Body Mass Index 41.52 07/15/2021 3:08 PM RUNNING INSTRUCTOR Plan of Treatment Health Maintenance Due Date [...] home safety measures General No Theresa Belle hogshead wrecker Procedure Name Priority Date/Time Associated Diagnosis Comments HEMOGLOBIN, GLYCOSYLATED Routine 08/29/2021 8:20 AM RUNNING INSTRUCTOR from Last 3 Months or Most Recently Relevant to Health Maintenance Results * (ABNORMAL) HEMOGLOBIN, GLYCOSYLATED (08/29/2021 8:20 AM RUNNING INSTRUCTOR) HGB A1C 8.3(H) 4.2 - 6.3 % [facility] Comment: Note: Hemoglobinopathies such as HbF, HbS, etc. may give incorrect results with this test. ESTIMATED AVG GLUCOSE 190 mg/dL [facility] Comment: (This value is a calculated estimate of the mean blood glucose over the last 60 days based on the patient's HgbA1c value. 08/29/2021 8:20 AM RUNNING INSTRUCTOR 08/29/2021 8:20 AM RUNNING INSTRUCTOR Ryan Contreras DO LABORATORY Final Result [facility] [address] [address] from Last 3 Months or Most Recently Relevant to Health Maintenance Advance Directives Documents on File Type Date Recorded Patient Amr Physician Expl anation DNR (Do Not Resuscitate) Documentation 08/22/2021 9:38 AM POLST * DNR (Latest Code Status on File) Date Activated Date Inactivated Comments 08/23/2021 9:40 AM * Full Code Date Activated Date Inactivated Comments 08/17/2021 2:39 PM 08/23/2021 9:40 AM * Full Code Date Activated Date Inactivated Comments 07/16/2021 12:10 AM 07/19/2021 10:01 PM Care Teams Retail Business Manager Relationship Specialty Start Date End Date Beth Peterson NP Nurse Practitioner [facility] 08/14/21
--- OUTSIDE RECORDS SUMMARY | 2024-11-21 10:21 | XMS_ITS ---
Author Organization [facility] Address [address] [place], [place] [address] Care Team Providers Care Staff Home Therapy Rn Name Role Phone MERI MI Unavailable [phone] Lasha Mahmood Unavailable Unavailable Allergies Allergen (clinical [...] 11/14/2023 Encounters Encounter Location Date Provider Diagnosis [place] [address] [place], [place] [phone] 11/14/2023 MI JEREZ Other hammer toe(s) (acquired), [...] * TJ GARNERVIKADOB: 4 (78 yo F)Acc No.[id number]:11/14/2023 Patient: MADISON BENEDICT Provider: Silvia JEREZ :1945 A ge:78 Y S ex:Female Date:11/14/2023 Address:[address] [place], [place] [address] Subjective: * Chief Complaints: * 1 . [...] Patient denies c hest pain, history of [place], irregular heartbeat. M usculoskeletal: Patient denies a [...] M79.675 6 . U nspecified atherosclerosis of pechanga arteries of extremities, bilateral legs - I70.203 [...] were emphasized. 3. U nspecified atherosclerosis of pechanga arteries of extremities, bilateral legs Notes: Patient [...] Information: * Visit Code: * Procedure Codes: 35900 DEBRIDE NAIL, 6 OR MORE. Modifiers: Q8 * Sign off status: Completed true * Provider: Silvia JEREZ Date: 0 11/14/2023 Generated for Nancy bruno/Ehsan/Regine on: 0 11/21/2024 10:21 AM CDT History and Physical Notes * [...]
--- OUTSIDE RECORDS SUMMARY | 2024-11-21 10:21 | XMS_ITS | Patient Health Record ---
Author Organization [facility] Address [address] [place], [place] [address] Care Team Providers Care Circular Stuffer Name Role Phone MI JEREZ Unavailable [phone] Lasha Mahmood Unavailable Unavailable Allergies Allergen (clinical [...] Date Coverage End Date Medicare Part B [place] [address] [place] [address] [id number] MADISON GARNER Self - patient is the insured [facility] ([facility]) ATTN CLAIMS [address] [place] [address] [id number] MADISON GARNER Self - patient is the insured Medical (General) History Medical History History ICD Code kidney stones neuropathy Arthritis Bladder infections Diabetic Blood clots
--- OUTSIDE RECORDS SUMMARY | 2024-11-21 10:21 | XMS_ITS ---
Author Organization [facility] Address [address] [place], [place] [address] Care Team Providers Care Vibration Analyst Name Role Phone MI JEREZ Unavailable [phone] Lasha Mahmood Unavailable Unavailable REASON FOR VISIT *General care Encounters Encounter Location Date Provider Diagnosis [place] [address] [place], [place] [phone] 08/08/2023 MI JEREZ Plan Of Treatment No Information Progress Notes * MADISON GARNERDOB: 4 (79 yo F)Acc No.[id number]:08/08/2023 Patient: MADISON BENEDICT Provider: Silvia JEREZ :1945 A ge:77 Y S ex:Female Date:08/08/2023 Address:[address] [facility] Subjective: * Chief Complaints: * 1 . *General care. * Medical History: Objective: * Vitals: Assessment: Plan: * Treatment: * Billing Information: * Visit Code: * Procedure Codes: * Electronic signature of FLOYD JEREZ DPM on 11/21/2024 at 10:20 AM CDT Sign off status: Pending * Provider: Silvia JEREZ Date: 1 10/09/2022 Generated for Vanessai ng/Fapriceg/eTransmitting on: 0 11/21/2024 10:20 AM CDT
--- OUTSIDE RECORDS SUMMARY | 2024-11-21 10:21 | XMS_ITS ---
Author Organization [facility] Address [address] [place], [place] [address] Care Team Providers Care Cone Sewer Name Role Phone MI JEREZ Unavailable [phone] Lasha Mahmood Unavailable Unavailable REASON FOR VISIT *General care Encounters Encounter Location Date Provider Diagnosis [address] [phone] 01/16/2024 MI JEREZ Plan Of Treatment No Information Progress Notes * MADISON GARNERDOB: 4 (79 yo F)Acc No.[id number]:01/16/2024 Patient: Deshaun ESTRADAMADISON Provider: Silvia JEREZ :1945 A ge:78 Y S ex:Female Date:01/16/2024 Address:[address] [place], [place] [id number] Subjective: * Chief Complaints: * 1 . *General care. * Medical History: Objective: * Vitals: Assessment: Plan: * Treatment: * Billing Information: * Visit Code: * Procedure Codes: * Electronic signature of FLOYD JEREZ DPM on 11/21/2024 at 10:21 AM CDT Sign off status: Pending * Provider: Silvia JEREZ Date: 0 01/16/2024 Generated for Vanessai ng/Fapriceg/eTransmitting on: 0 11/21/2024 10:21 AM CDT
[2024-11-21 10:50] LABS: INR 2.2; Prothrombin Time 22.3 Seconds (9.50-12.1)
== END 2024-11-21 10:17 | disposition home or self-care (01) ==
LOC: CHSLAB 10:19
PROVIDERS: PCP Family Medicine; Visit Provider Family Medicine
DX: Z79.01 Long term (current) use of anticoagulants (principal)
CPT/HCPCS: 36415; 85610

== ENCOUNTER 2024-11-24 10:03 | Outpatient (CLI) | payer MEDICARE, SELFPAY ==
[2024-11-24 10:18] LABS: Hematocrit 26.3 % (35.0-42.0); Hemoglobin 8.2 g/dL (11.7-13.8); Mean Corpuscular HGB Conc 31.2 g/dL (32-36); Mean Corpuscular Hemoglobin 31.2 pg (27.0-31.0); Mean Platelet Volume 9.9 fl (9.2-11.8); Platelet Count Result 268 K/mm3 (150-420); Red Blood Count 2.63 M/mm3 (4.20-5.40); Red Cell Distribution Width 17.6 % (11.6-14.4); White Blood Count 6.6 K/mm3 (4.8-10.8)
[2024-11-24 10:31] LABS: INR 2.7; Prothrombin Time 27.5 Seconds (9.50-12.1)
[2024-11-24 10:33] LABS: Anion Gap 8 mmol/L (4-12); Blood Urea Nitrogen 23 mg/dL (7-18); Calcium 8.5 mg/dL (8.5-10.1); Carbon Dioxide 27 mmol/L (21-32); Chloride 106 mmol/L (98-108); Estimated Glomerular Filt Rate 40; Glucose 222 mg/dL (70-99); Osmolality Calculated 302 mOsm/kg (285-295); Potassium 4.3 mmol/L (3.5-5.1); Sodium 141 mmol/L (136-145)
--- OUTSIDE RECORDS SUMMARY | 2024-11-24 11:40 | XMS_ITS ---
Author Organization [facility] Address [address] [place], [place] [address] Care Team Providers Care Plant And Equipment Worker Name Role Phone MI JEREZ Unavailable [phone] Lasha Mahmood Unavailable Unavailable REASON FOR VISIT *General care Encounters Encounter Location Date Provider Diagnosis [place] [address] [place], [place] [phone] 08/08/2023 MI JEREZ Plan Of Treatment No Information Progress Notes * MADISON GARNERDOB: 4 (79 yo F)Acc No.[id number]:08/08/2023 Patient: MADISON BENEDICT Provider: Silvia JEREZ :1945 A ge:77 Y S ex:Female Date:08/08/2023 Address:[address] [facility] Subjective: * Chief Complaints: * 1 . *General care. * Medical History: Objective: * Vitals: Assessment: Plan: * Treatment: * Billing Information: * Visit Code: * Procedure Codes: * Electronic signature of FLOYD JEREZ DPM on 11/24/2024 at 11:40 AM CDT Sign off status: Pending * Provider: Silvia JEREZ Date: 1 10/09/2022 Generated for Printi ng/Faxing/eTransmitting on: 0 11/24/2024 11:40 AM CDT
--- OUTSIDE RECORDS SUMMARY | 2024-11-24 11:40 | XMS_ITS ---
Author Organization [facility] Address [address] [place], [place] [address] Care Team Providers Care Cement Finisher Apprentice Name Role Phone MI JEREZ Unavailable [phone] Lasha Mahmood Unavailable Unavailable REASON FOR VISIT *General care Encounters Encounter Location Date Provider Diagnosis [address] [phone] 01/16/2024 MI JEREZ Plan Of Treatment No Information Progress Notes * MADISON GARNERDOB: 4 (79 yo F)Acc No.[id number]:01/16/2024 Patient: Deshaun ESTRADAMADISON Provider: Silvia JEREZ :1945 A ge:78 Y S ex:Female Date:01/16/2024 Address:[address] [place], [place] [address] Subjective: * Chief Complaints: * 1 . *General care. * Medical History: Objective: * Vitals: Assessment: Plan: * Treatment: * Billing Information: * Visit Code: * Procedure Codes: * Electronic signature of FLOYD JEREZ DPM on 11/24/2024 at 11:40 AM CDT Sign off status: Pending * Provider: Silvia JEREZ Date: 0 01/16/2024 Generated for Vanessai ng/Fapriceg/eTransmitting on: 0 11/24/2024 11:40 AM CDT
--- OUTSIDE RECORDS SUMMARY | 2024-11-24 11:40 | XMS_ITS | Patient Health Record ---
Author Organization [facility] Address [address] [place], [place] [address] Care Team Providers Care Picture Painter Name Role Phone MI JEREZ Unavailable [phone] Lasha Mahmood Unavailable Unavailable Allergies Allergen (clinical [...] Date Coverage End Date Medicare Part B [place] [address] [place] [address] [id number] MADISON GARNER Self - patient is the insured [facility] ([place]) ATTN CLAIMS [address] [place] [address] [id number] MADISON GARNER Self - patient is the insured Medical (General) History Medical History History ICD Code kidney stones neuropathy Arthritis Bladder infections Diabetic Blood clots
--- OUTSIDE RECORDS SUMMARY | 2024-11-24 11:40 | XMS_ITS | Clinical Summary ---
Author Organization [facility] Address [address] [place] [address] Care Team Providers Care Electric Motor Analyst Name Role Phone Beth Peterson EPIC KALEIDOSCOPE ANALYST Unavailable Allergies No known active allergies Medications [...] hyperosmolarity without nonketotic hyperglycemic-hyper osmolar coma (NKHHC) ([facility]) Per sliding scale 0-149 = 0 [...] hyperosmolarity without nonketotic hyperglycemic-hyper osmolar coma (NKHHC) ([facility]) Take 1 tablet (500 mg total) [...] with hyperosmolarity without nonketotic hyperglycemic-hyperosmolar coma (NKHHC) ([facility]) 08/17/2021 Personal history of noncompl iance [...] Dates Next Due Influenza Adult (Generic) 08/15/2021,03/2017,05/29/2016,2014 [employer] ([employer]) COVID-19 AD26 VACCINE 0.5 ML IM SUSP [...] on file Legal Sex Female 2:51 PM ORACLE SPECIALIST Gender Identity Not on file Sexual Orientation Not on file Last Filed Vital Signs Vital Sign Reading Time Taken Comments Blood Pressure 122/45 09/13/2021 8:55 AM ORACLE SPECIALIST Pulse 76 09/13/2021 8:55 AM ORACLE SPECIALIST Temperature 36.7 C (98 F) 09/13/2021 8:55 AM ORACLE SPECIALIST Respiratory Rate 20 09/13/2021 8:55 AM ORACLE SPECIALIST Oxygen Saturation 97% 09/13/2021 8:55 AM ORACLE SPECIALIST Inhaled Oxygen Concentration - - Weight 103 kg (227 lb) 09/13/2021 8:55 AM ORACLE SPECIALIST Height 157.5 cm (5' 2 ) 07/15/2021 3:08 PM ORACLE SPECIALIST Body Mass Index 41.52 07/15/2021 3:08 PM ORACLE SPECIALIST Plan of Treatment Health Maintenance Due Date [...] home safety measures General No Theresa Belle refrigerator cabinetmaker Procedure Name Priority Date/Time Associated Diagnosis Comments HEMOGLOBIN, GLYCOSYLATED Routine 08/29/2021 8:20 AM ORACLE SPECIALIST from Last 3 Months or Most Recently Relevant to Health Maintenance Results * (ABNORMAL) HEMOGLOBIN, GLYCOSYLATED (08/29/2021 8:20 AM ORACLE SPECIALIST) HGB A1C 8.3(H) 4.2 - 6.3 % [facility] Comment: Note: Hemoglobinopathies such as HbF, HbS, etc. may give incorrect results with this test. ESTIMATED AVG GLUCOSE 190 mg/dL [facility] Comment: (This value is a calculated estimate of the mean blood glucose over the last 60 days based on the patient's HgbA1c value. 08/29/2021 8:20 AM ORACLE SPECIALIST 08/29/2021 8:20 AM ORACLE SPECIALIST Ryan Contreras DO LABORATORY Final Result [facility] [address] [address] from Last 3 Months or Most Recently Relevant to Health Maintenance Advance Directives Documents on File Type Date Recorded Patient Carpenter Assistant Installer Expl anation DNR (Do Not Resuscitate) Documentation 08/22/2021 9:38 AM POLST * DNR (Latest Code Status on File) Date Activated Date Inactivated Comments 08/23/2021 9:40 AM * Full Code Date Activated Date Inactivated Comments 08/17/2021 2:39 PM 08/23/2021 9:40 AM * Full Code Date Activated Date Inactivated Comments 07/16/2021 12:10 AM 07/19/2021 10:01 PM Care Teams Electric Motor Analyst Relationship Specialty Start Date End Date Beth Peterson NP Nurse Practitioner [facility] 08/14/21
--- OUTSIDE RECORDS SUMMARY | 2024-11-24 11:41 | XMS_ITS ---
Author Organization [facility] Address [address] [place], [place] [address] Care Team Providers Care Floorwalker Name Role Phone MERI MI Unavailable [phone] Lasha Mahmood Unavailable Unavailable Allergies Allergen (clinical [...] 11/14/2023 Encounters Encounter Location Date Provider Diagnosis [place] [address] [place], [place] [phone] 11/14/2023 MI JEREZ Other hammer toe(s) (acquired), right foot M20.41 ; Tinea unguium B35.1 ; Other hammer toe(s) (acquired), left foot M20.42 ; Pain in right toe(s) M79.674 ; Pain in left toe(s) M79.675 ; Unspecified atherosclerosis of washoe arteries of extremities, bilateral legs I70.203 and [...] (ICD-10 - M79.675) 11/14/2023 Unspecified atherosclerosis of washoe arteries of extremities, bilateral legs (ICD-10 - [...] OTC and prescription treatments. Unspecified atherosclerosis of washoe arteries of extremities, bilateral legs Patient educated [...] * TJ GARNERVIKADOB: 4 (78 yo F)Acc No.[id number]:11/14/2023 Patient: MADISON BENEDICT Provider: Silvia JEREZ :1945 A ge:78 Y S ex:Female Date:11/14/2023 Address:[address] [place], [place] [address] Subjective: * Chief Complaints: * 1 . [...] Patient denies c hest pain, history of [place], irregular heartbeat. M usculoskeletal: Patient denies a [...] M79.675 6 . U nspecified atherosclerosis of washoe arteries of extremities, bilateral legs - I70.203 [...] were emphasized. 3. U nspecified atherosclerosis of washoe arteries of extremities, bilateral legs Notes: Patient [...] Information: * Visit Code: * Procedure Codes: 20768 DEBRIDE NAIL, 6 OR MORE. Modifiers: Q8 * Sign off status: Completed true * Provider: Silvia JEREZ Date: 0 11/14/2023 Generated for Nancy bruno/Ehsan/Regine on: 0 11/24/2024 11:40 AM CDT History and Physical Notes * [...]
[2024-11-24 21:55] LABS: Ferritin 161 ng/mL (8-252); Folic Acid 13.7 ng/mL (8.6->20); Iron 77 ug/dL (50-170); Percent Iron Saturation 37 % (12-57); Vitamin B12 654 pg/mL (193-986)
[2024-11-27 02:53] LABS: Transferrin 173 mg/dL (188-341)
== END 2024-11-24 10:04 | disposition home or self-care (01) ==
PROVIDERS: PCP Family Medicine; Visit Provider Family Medicine
DX: J81.1 Chronic pulmonary edema (principal); R55 Syncope and collapse; Z79.01 Long term (current) use of anticoagulants; I82.401 Acute embolism and thrombosis of unspecified deep veins of right lower extremity; G31.84 Mild cognitive impairment of uncertain or unknown etiology; R06.00 Dyspnea, unspecified; R53.1 Weakness; G47.00 Insomnia, unspecified; R63.0 Anorexia; R79.89 Other specified abnormal findings of blood chemistry; E11.59 Type 2 diabetes mellitus with other circulatory complications; I50.32 Chronic diastolic (congestive) heart failure; N18.31 Chronic kidney disease, stage 3a
CPT/HCPCS: 36415; 80048; 80053; 82607; 82728; 82746; 83540; 83550; 84466; 85027; 85610

== ENCOUNTER 2024-12-01 07:40 | Outpatient (CLI) | payer MEDICARE, SELFPAY ==
--- NOTE | ~2024-12-01 | XR_ITS ---
MODIFIED ESOPHAGRAM HISTORY: Abdominal pain and dysphagia TECHNIQUE: Modified barium esophagram was performed on 12/01/2024. I administered fluoroscopy and perfo rmed the exam with speech pathologist. Patient was seated for lateral fluoroscopic imaging for inges tion of thin liquids, pudding, solids and quantified amounts, followed by thin liquids in uncontrolle d amounts. This was recorded on tape. A single fluoroscopic spot image was also recorded. The DAP for this procedure was 1.654 Gycm2. The amount of fluoroscopy time used during this procedure was 2.2 mi nutes. FINDINGS: Oral stage: Adequate function. Pharyngeal stage: Flash laryngeal penetration without aspiration.. Cervical/esophageal stage: There is a tight upper esophageal sphincter causing trace backflow into th e piriform sinuses potential aspiration risk. IMPRESSION: Flash laryngeal penetration without aspiration as well as trace pharyngeal esophageal ref lux with potential aspiration risk. Please correlate with speech pathologist findings and specific f eeding recommendations. Reviewed, dictated and finalized at location A. IMPRESSION: Flash laryngeal penetration without aspiration as well as trace pha ryngeal esophageal reflux with potential aspiration risk. Please correlate wit h speech pathologist findings and specific feeding recommendations.
--- OUTSIDE RECORDS SUMMARY | 2024-12-01 07:46 | XMS_ITS ---
Author Organization [facility] Address [address] [address], [place] [address] Care Team Providers Care Metropolitan Editor Name Role Phone MI JEREZ Unavailable [phone] Lasha Mahmood Unavailable Unavailable REASON FOR VISIT *General care Encounters Encounter Location Date Provider Diagnosis [place] [address] [place], [place] [phone] 08/08/2023 MI JEREZ Plan Of Treatment No Information Progress Notes * MADISON GARNERDOB: 4 (79 yo F)Acc No.[id number]:08/08/2023 Patient: MADISON BENEDICT Provider: Silvia JEREZ :1945 A ge:77 Y S ex:Female Date:08/08/2023 Address:[address] [facility] Subjective: * Chief Complaints: * 1 . *General care. * Medical History: Objective: * Vitals: Assessment: Plan: * Treatment: * Billing Information: * Visit Code: * Procedure Codes: * Electronic signature of FLOYD JEREZ DPM on 12/01/2024 at 07:46 AM CDT Sign off status: Pending * Provider: Silvia JEREZ Date: 1 10/09/2022 Generated for Vanessai ng/Fapriceg/eTransmitting on: 0 12/01/2024 07:46 AM CDT
--- OUTSIDE RECORDS SUMMARY | 2024-12-01 07:47 | XMS_ITS | Clinical Summary ---
Author Organization [facility] Address [address] [place] [address] Care Team Providers Care Regional Sales Representative Name Role Phone Beth Peterson JAVA CONSULTANT Unavailable Allergies No known active allergies Medications [...] hyperosmolarity without nonketotic hyperglycemic-hyper osmolar coma (NKHHC) ([facility]) Per sliding scale 0-149 = 0 [...] hyperosmolarity without nonketotic hyperglycemic-hyper osmolar coma (NKHHC) ([facility]) Take 1 tablet (500 mg total) [...] with hyperosmolarity without nonketotic hyperglycemic-hyperosmolar coma (NKHHC) ([facility]) 08/17/2021 Personal history of noncompl iance [...] Dates Next Due Influenza Adult (Generic) 08/15/2021,03/2017,05/29/2016,2014 [employer] ([employer]) COVID-19 AD26 VACCINE 0.5 ML IM SUSP [...] file Legal Sex Female 2:51 PM SOUND PRINTER Gender Identity Not on file Sexual Orientation Not on file Last Filed Vital Signs Vital Sign Reading Time Taken Comments Blood Pressure 122/45 09/13/2021 8:55 AM SOUND PRINTER Pulse 76 09/13/2021 8:55 AM SOUND PRINTER Temperature 36.7 C (98 F) 09/13/2021 8:55 AM SOUND PRINTER Respiratory Rate 20 09/13/2021 8:55 AM SOUND PRINTER Oxygen Saturation 97% 09/13/2021 8:55 AM SOUND PRINTER Inhaled Oxygen Concentration - - Weight 103 kg (227 lb) 09/13/2021 8:55 AM SOUND PRINTER Height 157.5 cm (5' 2 ) 07/15/2021 3:08 PM SOUND PRINTER Body Mass Index 41.52 07/15/2021 3:08 PM SOUND PRINTER Plan of Treatment Health Maintenance Due Date Last Done Comments Kidney Health Evaluation 1945 Lipid Panel 1945 Diabetes: Retinopathy Eye Exam 1961 DTaP, Tdap and Td Vaccines ( 1 - Tdap) 1962 Zoster Vaccines (1 of 2) 1993 Dexa Scan (General) 2008 Pneumococcal Vaccine: 65+ Years (2 of 2 - PPSV23 or PCV20) 07/16/2015 05/21/2015 RSV Immunization or 60+ Years (1 - 1-dose 75+ series) 2018 Hemoglobin A1C 02/27/2022 08/29/2021, 08/23/2021, 07/16/2021 COVID-19 Vaccine (2 - 2023-2 5 season) 2024 08/14/2021 Meningococcal B Vaccine Aged Out No l onger eligible based on patient's age to complete this topic Meningococcal Vaccine Aged Out No aayush felicity eligible based on patient's age to complete this topic RSV Immunizations Under 20 Months Aged Out No longer eligible b ased on patient's age to complete this topic Goals Goal Patient Goal Type Associated Problems Recent Progress Patient-Stated? Author Safety - demonstrates understanding of home safety measures General No Theresa Belle guest services manager Procedure Name Priority Date/Time Associated Diagnosis Comments HEMOGLOBIN, GLYCOSYLATED Routine 08/29/2021 8:20 AM SOUND PRINTER from Last 3 Months or Most Recently Relevant to Health Maintenance Results * (ABNORMAL) HEMOGLOBIN, GLYCOSYLATED (08/29/2021 8:20 AM SOUND PRINTER) HGB A1C 8.3(H) 4.2 - 6.3 % [facility] Comment: Note: Hemoglobinopathies such as HbF, HbS, etc. may give incorrect results with this test. ESTIMATED AVG GLUCOSE 190 mg/dL [facility] Comment: (This value is a calculated estimate of the mean blood glucose over the last 60 days based on the patient's HgbA1c value. 08/29/2021 8:20 AM SOUND PRINTER 08/29/2021 8:20 AM SOUND PRINTER us Ryan Contreras DO LABORATORY Final Result [facility] [address] [place] [address] from Last 3 Months or Most Recently Relevant to Health Maintenance Advance Directives Documents on File Type Date Recorded Patient Tube Tester Expl anation DNR (Do Not Resuscitate) Documentation 08/22/2021 9:38 AM POLST * DNR (Latest Code Status on File) Date Activated Date Inactivated Comments 08/23/2021 9:40 AM * Full Code Date Activated Date Inactivated Comments 08/17/2021 2:39 PM 08/23/2021 9:40 AM * Full Code Date Activated Date Inactivated Comments 07/16/2021 12:10 AM 07/19/2021 10:01 PM Care Teams Regional Sales Representative Relationship Specialty Start Date End Date Beth Peterson NP Nurse Practitioner [facility] 08/14/21
--- OUTSIDE RECORDS SUMMARY | 2024-12-01 07:47 | XMS_ITS ---
Author Organization [facility] Address [address] [place], [place] [address] Care Team Providers Care Tooth Clerk Name Role Phone MERI [place] Unavailable [phone] Lasha Mahmood Unavailable Unavailable Allergies Allergen (clinical [...] 11/14/2023 Encounters Encounter Location Date Provider Diagnosis [address] [place], [place] [id number] 11/14/2023 [place] JEREZ Other hammer toe(s) (acquired), right foot M20.41 ; Tinea unguium B35.1 ; Other hammer toe(s) (acquired), left foot M20.42 ; Pain in right toe(s) M79.674 ; Pain in left toe(s) M79.675 ; 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 [...] Patient denies c hest pain, history of [place], irregular heartbeat. M usculoskeletal: Patient denies a [...] M79.675 6 . U nspecified atherosclerosis of tan[place] arteries of extremities, bilateral legs - I70.203 [...] were emphasized. 3. U nspecified atherosclerosis of tanana arteries of extremities, bilateral legs Notes: Patient [...] Information: * Visit Code: * Procedure Codes: 49739 DEBRIDE NAIL, 6 OR MORE. Modifiers: Q8 * Sign off status: Completed true * Provider: Silvia JEREZ Date: 0 11/14/2023 Generated for Nancy bruno/Ehsan/Regine on: 0 12/01/2024 07:46 AM CDT History and Physical Notes * [...]
--- OUTSIDE RECORDS SUMMARY | 2024-12-01 07:47 | XMS_ITS | Patient Health Record ---
Author Organization [facility] Address [address] [place], [place] [address] Care Team Providers Care Urinalysis Technician Name Role Phone MI JEREZ Unavailable [phone] Lasha Mahmood Unavailable Unavailable Allergies Allergen (clinical [...] Date Coverage End Date Medicare Part B [place] [address] [place] [address] [id number] MADISON GARNER Self - patient is the insured [facility] ([facility]) ATTN CLAIMS [address] [place] [address] [id number] MADISON GARNER Self - patient is the insured Medical (General) History Medical History History ICD Code kidney stones neuropathy Arthritis Bladder infections Diabetic Blood clots
--- OUTSIDE RECORDS SUMMARY | 2024-12-01 07:47 | XMS_ITS ---
Author Organization [facility] Address [address] [place], [place] [address] Care Team Providers Care Targeting Acquisition Officer Name Role Phone MI JEREZ Unavailable [phone] Lasha Mahmood Unavailable Unavailable REASON FOR VISIT *General care Encounters Encounter Location Date Provider Diagnosis [address] [id number] 01/16/2024 MI JEREZ Plan Of Treatment No Information Progress Notes * MADISON GARNERDOB: (79 yo F)Acc No.[id number]:01/16/2024 Patient: Deshaun ESTRADAMADISON Provider: Silvia JEREZ :1945 A ge:78 Y S ex:Female Date:01/16/2024 Address:[address] [place], [place] [phone] Subjective: * Chief Complaints: * 1 . *General care. * Medical History: Objective: * Vitals: Assessment: Plan: * Treatment: * Billing Information: * Visit Code: * Procedure Codes: * Electronic signature of FLOYD JEREZ DPM on 12/01/2024 at 07:46 AM CDT Sign off status: Pending * Provider: Silvia JEREZ Date: 0 01/16/2024 Generated for Vanessai ng/Faluis/eTransmitting on: 12/01/2024 07:46 AM CDT
--- NOTE | 2024-12-01 10:40 | REHSTMBS ---
Assessment and note entered by Valerie Garza, GLOVE TAGGER Modified Barium Swallow Evaluation Feeding Type Recommended Oral Food Consistency Regular, Level 7 Liquid Consistency Thin (0) ST Clinical Summary The above pleasant and cooperative pt was seen for an outpatient modified barium swallow. She was alert & oriented, and able to follow commands. She is currently on a regular diet and reports difficulty in that it feels like solids get stuck at times causing her to almost choke. Oral mucosa is normal; natural dentition is in fair/good condition; informal oral peripheral exam revealed lingual and labial structures to be normal. She was able to dry swallow on command and exhibited clear vocal quality. The patient was seated for a lateral view and presented with 5cc of thin liquid barium via spoon , pudding consistency barium via a spoon, cracker coated with barium pudding via spoon, and uncontrolled thin liquid barium. This was presented via a cup & straw. Oral preparatory and oral phase symptoms: none. Pharyngeal phase symptoms: within functional limits; intermittent trace and very shallow laryngeal penetration occurred during the swallow (age appropriate) which cleared without aspiration risk. Also noted was a trace backflow from what appeared to be a tight UES/cricopharyngeus muscle. It is cleared when the pt initiates an independent dry swallow; no aspiration occurred. Esophageal stage symptoms: WFL. Impressions: Functional swallow as the pt independently dry swallows to clear the trace backflow (as above). Recommendation: Regular diet with regular liquids; pt was instructed for extra dry swallows between sips and bites (may need reminders. Questionable ENT or GI consult/maybe dilation of esophagus. No further ST is warranted at this time.
== END 2024-12-01 07:41 | disposition home or self-care (01) ==
PROVIDERS: PCP Family Medicine; Visit Provider Family Medicine
DX: R10.9 Unspecified abdominal pain (principal); R13.10 Dysphagia, unspecified
CPT/HCPCS: 92611

== ENCOUNTER 2024-12-02 18:51 | Outpatient (NON) | payer MEDICARE, SELFPAY ==
--- OUTSIDE RECORDS SUMMARY | 2024-12-02 18:54 | XMS_ITS ---
Author Organization [facility] Address [address] [place], [place] [address] Care Team Providers Care Senior Care Manager Name Role Phone MI JEREZ Unavailable [phone] Lasha Mahmood Unavailable Unavailable REASON FOR VISIT *General care Encounters Encounter Location Date Provider Diagnosis [place] [address] [place], [place] [id number] 08/08/2023 MI JEREZ Plan Of Treatment No Information Progress Notes * MADISON GARNERDOB: 4 (79 yo F)Acc No.[id number]:08/08/2023 Patient: MADISON BENEDICT Provider: Silvia JEREZ :1945 A ge:77 Y S ex:Female Date:08/08/2023 Address:[address] [place] Subjective: * Chief Complaints: * 1 . *General care. * Medical History: Objective: * Vitals: Assessment: Plan: * Treatment: * Billing Information: * Visit Code: * Procedure Codes: * Electronic signature of FLOYD JEREZ DPM on 12/02/2024 at 06:54 PM CDT Sign off status: Pending * Provider: Silvia JEREZ Date: 1 10/09/2022 Generated for Vanessai ng/Fapriceg/eTransmitting on: 0 12/02/2024 06:54 PM CDT
--- OUTSIDE RECORDS SUMMARY | 2024-12-02 18:55 | XMS_ITS ---
Author Organization [facility] Address [address] [place], [place] [address] Care Team Providers Care After School Coordinator Name Role Phone MERI MI Unavailable [phone] Lasha Mahmood Unavailable Unavailable Allergies Allergen (clinical [...] 11/14/2023 Encounters Encounter Location Date Provider Diagnosis [place] [address] [place], [place] [phone] 11/14/2023 MI JEREZ Other hammer toe(s) (acquired), right foot M20.41 ; Tinea unguium B35.1 ; Other hammer toe(s) (acquired), left foot M20.42 ; Pain in right toe(s) M79.674 ; Pain in left toe(s) M79.675 ; Unspecified atherosclerosis of [place] arteries of extremities, bilateral legs I70.203 and [...] (ICD-10 - M79.675) 11/14/2023 Unspecified atherosclerosis of [place] arteries of extremities, bilateral legs (ICD-10 - [...] OTC and prescription treatments. Unspecified atherosclerosis of [place] arteries of extremities, bilateral legs Patient educated [...] * TJ GARNERVIKADOB: 4 (78 yo F)Acc No.[id number]:11/14/2023 Patient: MADISON BENEDICT Provider: Silvia JEREZ :1945 A ge:78 Y S ex:Female Date:11/14/2023 Address:[address] [place], [place] [phone] Subjective: * Chief Complaints: * 1 . [...] Patient denies c hest pain, history of [place], irregular heartbeat. M usculoskeletal: Patient denies a [...] M79.675 6 . U nspecified atherosclerosis of [place] arteries of extremities, bilateral legs - I70.203 [...] were emphasized. 3. U nspecified atherosclerosis of [place] arteries of extremities, bilateral legs Notes: Patient [...] Information: * Visit Code: * Procedure Codes: 84124 DEBRIDE NAIL, 6 OR MORE. Modifiers: Q8 * Sign off status: Completed true * Provider: Silvia JEREZ Date: 0 11/14/2023 Generated for Nancy bruno/Ehsan/Regine on: 0 12/02/2024 06:55 PM CDT History and Physical Notes * [...]
--- OUTSIDE RECORDS SUMMARY | 2024-12-02 18:55 | XMS_ITS | Clinical Summary ---
Author Organization [facility] Address [address] [place] [address] Care Team Providers Care Cambering Machine Operator Name Role Phone Beth Peterson TECHNOLOGY COACH Unavailable Allergies No known active allergies Medications [...] hyperosmolarity without nonketotic hyperglycemic-hyper osmolar coma (NKHHC) ([facility]) Per sliding scale 0-149 = 0 units [...] hyperosmolarity without nonketotic hyperglycemic-hyper osmolar coma (NKHHC) ([facility]) Take 1 tablet (500 mg total) by [...] with hyperosmolarity without nonketotic hyperglycemic-hyperosmolar coma (NKHHC) ([facility]) 08/17/2021 Personal history of noncompl iance with [...] Dates Next Due Influenza Adult (Generic) 08/15/2021,03/2017,05/29/2016,2014 [employer]) COVID-19 AD26 VACCINE 0.5 ML IM SUSP [...] on file Legal Sex Female 2:51 PM HOG WORKER Gender Identity Not on file Sexual Orientation Not on file Last Filed Vital Signs Vital Sign Reading Time Taken Comments Blood Pressure 122/45 09/13/2021 8:55 AM HOG WORKER Pulse 76 09/13/2021 8:55 AM HOG WORKER Temperature 36.7 C (98 F) 09/13/2021 8:55 AM HOG WORKER Respiratory Rate 20 09/13/2021 8:55 AM HOG WORKER Oxygen Saturation 97% 09/13/2021 8:55 AM HOG WORKER Inhaled Oxygen Concentration - - Weight 103 kg (227 lb) 09/13/2021 8:55 AM HOG WORKER Height 157.5 cm (5' 2 ) 07/15/2021 3:08 PM HOG WORKER Body Mass Index 41.52 07/15/2021 3:08 PM HOG WORKER Plan of Treatment Health Maintenance Due Date [...] home safety measures General No Theresa Belle healthcare account manager Procedure Name Priority Date/Time Associated Diagnosis Comments HEMOGLOBIN, GLYCOSYLATED Routine 08/29/2021 8:20 AM HOG WORKER from Last 3 Months or Most Recently Relevant to Health Maintenance Results * (ABNORMAL) HEMOGLOBIN, GLYCOSYLATED (08/29/2021 8:20 AM HOG WORKER) HGB A1C 8.3(H) 4.2 - 6.3 % [facility] Comment: Note: Hemoglobinopathies such as HbF, HbS, etc. may give incorrect results with this test. ESTIMATED AVG GLUCOSE 190 mg/dL [facility] Comment: (This value is a calculated estimate of the mean blood glucose over the last 60 days based on the patient's HgbA1c value. 08/29/2021 8:20 AM HOG WORKER 08/29/2021 8:20 AM HOG WORKER us Ryan Contreras DO LABORATORY Final Result [facility] [address] [place] [address] from Last 3 Months or Most Recently Relevant to Health Maintenance Advance Directives Documents on File Type Date Recorded Patient Dental Technician Expl anation DNR (Do Not Resuscitate) Documentation 08/22/2021 9:38 AM POLST * DNR (Latest Code Status on File) Date Activated Date Inactivated Comments 08/23/2021 9:40 AM * Full Code Date Activated Date Inactivated Comments 08/17/2021 2:39 PM 08/23/2021 9:40 AM * Full Code Date Activated Date Inactivated Comments 07/16/2021 12:10 AM 07/19/2021 10:01 PM Care Teams Cambering Machine Operator Relationship Specialty Start Date End Date Beth Peterson NP Nurse Practitioner [facility] 08/14/21
--- OUTSIDE RECORDS SUMMARY | 2024-12-02 18:55 | XMS_ITS ---
Author Organization [facility] Address [address] [place], [place] [address] Care Team Providers Care Machine Learning Intern Name Role Phone MI JEREZ Unavailable [phone] Lasha Mahmood Unavailable Unavailable REASON FOR VISIT *General care Encounters Encounter Location Date Provider Diagnosis [address] [id number] 01/16/2024 MI JEREZ Plan Of Treatment No Information Progress Notes * MADISON GARNERDOB: (79 yo F)Acc No.[id number]:01/16/2024 Patient: Deshaun ESTRADAMADISON Provider: Silvia JEREZ :1945 A ge:78 Y S ex:Female Date:01/16/2024 Address:[address] [place], [place] [address] Subjective: * Chief Complaints: * 1 . *General care. * Medical History: Objective: * Vitals: Assessment: Plan: * Treatment: * Billing Information: * Visit Code: * Procedure Codes: * Electronic signature of FLOYD JEREZ DPM on 12/02/2024 at 06:54 PM CDT Sign off status: Pending * Provider: Silvia JEREZ Date: 0 01/16/2024 Generated for Vanessai ng/Fapriceg/eTransmitting on: 0 12/02/2024 06:54 PM CDT
--- OUTSIDE RECORDS SUMMARY | 2024-12-02 18:55 | XMS_ITS | Patient Health Record ---
Author Organization [facility] Address [address] [place], [place] [address] Care Team Providers Care Wicker Worker Name Role Phone MI JEREZ Unavailable [phone] Lasha Mahmood Unavailable Unavailable Allergies Allergen (clinical [...] Date Coverage End Date Medicare Part B [place] [address] [place] [address] [id number] MADISON GARNER Self - patient is the insured [facility] ([facility]) ATTN CLAIMS [address] [place] [address] [id number] MADISON GARNER Self - patient is the insured Medical (General) History Medical History History ICD Code kidney stones neuropathy Arthritis Bladder infections Diabetic Blood clots
[2024-12-02 19:01] LABS: Add Urine Microscopic? YES; Appearance Urine Cloudy (Clear); Bilirubin Urine Negative (Negative); Blood Urine 2+ (Negative); Color Urine Light Yellow (Yellow); Glucose Urine UA 3+ (Negative); Ketones Urine Negative (Negative); Leukocyte Esterase Ur 2+ LEU/UL (Negative); Nitrate Urine Negative (Negative); Protein Urine 2+ (Negative); Urobilinogen Urine 0.2 mg/dL (0.2-1.0)
[2024-12-02 19:06] LABS: Bacteria Urine 2+ /hpf; Squamous Epithelial Cell Urine Few /hpf (Few); WBC Urine >75 /hpf (0-3)
== END 2024-12-02 18:52 | disposition home or self-care (01) ==
LOC: CHSLAB 18:52
PROVIDERS: PCP Family Medicine; Visit Provider Family Medicine
DX: R82.90 Unspecified abnormal findings in urine (principal); N18.9 Chronic kidney disease, unspecified
CPT/HCPCS: 81001; 87086; 87186

== ENCOUNTER 2024-12-08 08:06 | Outpatient (CLI) | payer MEDICARE, SELFPAY ==
--- NOTE | ~2024-12-08 | XR_ITS ---
EXAM: XR UGI w barium swallow - 12/08/2024 09:00 CDT History: 79 years old Female with ABD PAIN;DYSPHAGIA Fluoro Time: 1.5 minutes Radiation Dose: 4823 mGy. Technique Contrast fluoroscopic examination of the upper GI tract was performed with barium. Findings Extremely limited evaluation due to patient's inability to stand, move and inability to cooperate dur ing the examination. The patient swallowed the oral contrast without difficulty. Contrast transitioned appropriately from the mouth through the esophagus. There was delayed emptying of contrast from the esophagus into the stomach suggestive of esophageal dysmotility. No discrete eso phageal strictures seen on current examination. There was hiatal hernia visualized. Mild esophageal reflux up to mid esophagus noted. Gastric emptying could not be studied because of patient's inability to cooperate and move for examin ation. Impression: 1. Limited evaluation. Delayed emptying of contrast from esophagus into the stomach suggestive of a symphyseal dysmotility. 2. Mild esophageal reflux up to midesophagus. Reviewed, dictated and finalized at location A. Impression: 1. Limited evaluation. Delayed emptying of contrast from esophagus into the st omach suggestive of a symphyseal dysmotility. 2. Mild esophageal reflux up to midesophagus.
--- NOTE | ~2024-12-08 | XR_ITS ---
XR abdomen obstructive series Ordering provider: Lasha Mahmood MD History: . ABD PAIN; DYSPHAGIA . Comparison: None. FINDINGS: BOWEL: Fecal material is loaded in the colon. Nonobstructive bowel gas pattern. ORGANOMEGALY: None. SIGNIFICANT PATHOLOGIC CALCIFICATIONS: None. OTHER: No free air is seen under the diaphragm. Degenerative changes of the spine with levoscoliosis. IMPRESSION: NO ACUTE ABDOMINAL FINDINGS. Constipation. Reviewed, dictated and finalized at location A.
--- OUTSIDE RECORDS SUMMARY | 2024-12-08 08:12 | XMS_ITS ---
Author Organization [facility] Address [address] [place], [place] [address] Care Team Providers Care Germination Testing Manager Name Role Phone MI JEREZ Unavailable [phone] Lasha Mahmood Unavailable Unavailable REASON FOR VISIT *General care Encounters Encounter Location Date Provider Diagnosis [address] [phone] 01/16/2024 MI JEREZ Plan Of Treatment No Information Progress Notes * MADISON GARNERDOB: (79 yo F)Acc No.[id number]:01/16/2024 Patient: Deshaun ESTRADAMADISON Provider: Silvia JEREZ :1945 A ge:78 Y S ex:Female Date:01/16/2024 Address:[address] [place], [place] [phone] Subjective: * Chief Complaints: * 1 . *General care. * Medical History: Objective: * Vitals: Assessment: Plan: * Treatment: * Billing Information: * Visit Code: * Procedure Codes: * Electronic signature of FLOYD JEREZ DPM on 12/08/2024 at 08:12 AM CDT Sign off status: Pending * Provider: Silvia JEREZ Date: 0 01/16/2024 Generated for Vanessai ng/Fapriceg/eTransmitting on: 0 12/08/2024 08:12 AM CDT
--- OUTSIDE RECORDS SUMMARY | 2024-12-08 08:12 | XMS_ITS | Patient Health Record ---
Author Organization [facility] Address [address] [place], [place] [address] Care Team Providers Care Tower Cleaner Name Role Phone MI JEREZ Unavailable [phone] Lasha Mahmood Unavailable Unavailable Allergies Allergen (clinical [...] Part B [place] [address] [place] [address] [id number] MADISON GARNER Self - patient is the insured [facility] ([facility]) ATTN CLAIMS [address] [place] [address] [id number] MADISON GARNER Self - patient is the insured Medical (General) History Medical History History ICD Code kidney stones neuropathy Arthritis Bladder infections Diabetic Blood clots
--- OUTSIDE RECORDS SUMMARY | 2024-12-08 08:12 | XMS_ITS | Clinical Summary ---
Author Organization [facility] Address [address] [place] [address] Care Team Providers Care Supervisor Extruding Department Name Role Phone Beth Peterson BPO SPECIALIST Unavailable Allergies No known active allergies Medications [...] hyperosmolarity without nonketotic hyperglycemic-hyper osmolar coma (NKHHC) ([facility]) Per sliding scale 0-149 = 0 units [...] hyperosmolarity without nonketotic hyperglycemic-hyper osmolar coma (NKHHC) ([facility]) Take 1 tablet (500 mg total) by [...] with hyperosmolarity without nonketotic hyperglycemic-hyperosmolar coma (NKHHC) ([facility]) 08/17/2021 Personal history of noncompl iance with [...] Dates Next Due Influenza Adult (Generic) 08/15/2021,03/2017,05/29/2016,2014 [employer] ([employer]) COVID-19 AD26 VACCINE 0.5 ML IM SUSP [...] on file Legal Sex Female 2:51 PM MECHANICAL ESTIMATOR Gender Identity Not on file Sexual Orientation Not on file Last Filed Vital Signs Vital Sign Reading Time Taken Comments Blood Pressure 122/45 09/13/2021 8:55 AM MECHANICAL ESTIMATOR Pulse 76 09/13/2021 8:55 AM MECHANICAL ESTIMATOR Temperature 36.7 C (98 F) 09/13/2021 8:55 AM MECHANICAL ESTIMATOR Respiratory Rate 20 09/13/2021 8:55 AM MECHANICAL ESTIMATOR Oxygen Saturation 97% 09/13/2021 8:55 AM MECHANICAL ESTIMATOR Inhaled Oxygen Concentration - - Weight 103 kg (227 lb) 09/13/2021 8:55 AM MECHANICAL ESTIMATOR Height 157.5 cm (5' 2 ) 07/15/2021 3:08 PM MECHANICAL ESTIMATOR Body Mass Index 41.52 07/15/2021 3:08 PM MECHANICAL ESTIMATOR Plan of Treatment Health Maintenance Due Date [...] this topic Meningococcal Vaccine Aged Out No aauysh felicity eligible based on patient's age to complete this topic RSV Immunizations Under 20 Months Aged Out No longer eligible b ased on patient's age to complete this topic Goals Goal Patient Goal Type Associated Problems Recent Progress Patient-Stated? Author Safety - demonstrates understanding of home safety measures General No Theresa [facility] emergency department rn Procedure Name Priority Date/Time Associated Diagnosis Comments HEMOGLOBIN, GLYCOSYLATED Routine 08/29/2021 8:20 AM MECHANICAL ESTIMATOR from Last 3 Months or Most Recently Relevant to Health Maintenance Results * (ABNORMAL) HEMOGLOBIN, GLYCOSYLATED (08/29/2021 8:20 AM MECHANICAL ESTIMATOR) HGB A1C 8.3(H) 4.2 - 6.3 % [facility] Comment: Note: Hemoglobinopathies such as HbF, HbS, etc. may give incorrect results with this test. ESTIMATED AVG GLUCOSE 190 mg/dL [facility] Comment: (This value is a calculated estimate of the mean blood glucose over the last 60 days based on the patient's HgbA1c value. 08/29/2021 8:20 AM MECHANICAL ESTIMATOR 08/29/2021 8:20 AM MECHANICAL ESTIMATOR us Ryan Contreras DO LABORATORY Final Result [facility] [address] [place] [address] from Last 3 Months or Most Recently Relevant to Health Maintenance Advance Directives Documents on File Type Date Recorded Patient Functional Skills Tutor Expl anation DNR (Do Not Resuscitate) Documentation 08/22/2021 9:38 AM POLST * DNR (Latest Code Status on File) Date Activated Date Inactivated Comments 08/23/2021 9:40 AM * Full Code Date Activated Date Inactivated Comments 08/17/2021 2:39 PM 08/23/2021 9:40 AM * Full Code Date Activated Date Inactivated Comments 07/16/2021 12:10 AM 07/19/2021 10:01 PM Care Teams Supervisor Extruding Department Relationship Specialty Start Date End Date Beth Peterson NP Nurse Practitioner [facility] 08/14/21
--- OUTSIDE RECORDS SUMMARY | 2024-12-08 08:12 | XMS_ITS ---
Author Organization [facility] Address [address] [place], [place] [address] Care Team Providers Care Icing Mixer Name Role Phone MI JEREZ Unavailable [phone] Lasha Mahmood Unavailable Unavailable REASON FOR VISIT *General care Encounters Encounter Location Date Provider Diagnosis [place] [address] [place], [place] [id number] 08/08/2023 MI JEREZ Plan Of Treatment No Information Progress Notes * MADISON GARNERDOB: 4 (79 yo F)Acc No.[id number]:08/08/2023 Patient: MADISON BENEDICT Provider: Silvia JEREZ :1945 A ge:77 Y S ex:Female Date:08/08/2023 Address:[address] [facility] Subjective: * Chief Complaints: * 1 . *General care. * Medical History: Objective: * Vitals: Assessment: Plan: * Treatment: * Billing Information: * Visit Code: * Procedure Codes: * Electronic signature of FLOYD JEREZ DPM on 12/08/2024 at 08:12 AM CDT Sign off status: Pending * Provider: Silvia JEREZ Date: 1 10/09/2022 Generated for Vanessai ng/Fapriceg/eTransmitting on: 0 12/08/2024 08:12 AM CDT
--- OUTSIDE RECORDS SUMMARY | 2024-12-08 08:13 | XMS_ITS ---
Author Organization [facility] Address [address] [place], [place] [address] Care Team Providers Care Director Title Name Role Phone MERI MI Unavailable [phone] Lasha Mahmood Unavailable Unavailable Allergies Allergen (clinical [...] 11/14/2023 Encounters Encounter Location Date Provider Diagnosis [place] [address] [place], [place] [address] 11/14/2023 MI JEREZ Other hammer toe(s) (acquired), [...] OTC and prescription treatments. Unspecified atherosclerosis of [place] arteries of extremities, bilateral legs Patient educated [...] * TJ GARNERVIKADOB: 4 (78 yo F)Acc No.[id number]:11/14/2023 Patient: MADISON BENEDITC Provider: Silvia JEREZ :1945 A ge:78 Y S ex:Female Date:11/14/2023 Address:[address] [place], [place] [address] Subjective: * Chief Complaints: * 1 . *General care. * HPI: H PI: General care P atlamine presents to the office for diabetic foot care. Patient states that their nails are thickened, elongated and painful. Patient states that it is aggravated by shoe gear. Onset is gradual., Patient is taking prescription blood thinners., Date last seen by Dr. Satnana was November 2023., Initials EW. * ROS: [...] M79.675 6 . U nspecified atherosclerosis of [place] arteries of extremities, bilateral legs - I70.203 [...] were emphasized. 3. U nspecified atherosclerosis of [place] arteries of extremities, bilateral legs Notes: Patient [...] Information: * Visit Code: * Procedure Codes: 54392 DEBRIDE NAIL, 6 OR MORE. Modifiers: Q8 * Sign off status: Completed true * Provider: Silvia JEREZ Date: 0 11/14/2023 Generated for Nancy bruno/Ehsan/Regine on: 0 12/08/2024 08:12 AM CDT History and Physical Notes * [...]
== END 2024-12-08 08:07 | disposition home or self-care (01) ==
PROVIDERS: PCP Family Medicine; Visit Provider Family Medicine
DX: R13.10 Dysphagia, unspecified (principal); K21.9 Gastro-esophageal reflux disease without esophagitis; K59.00 Constipation, unspecified
CPT/HCPCS: 74019; 74240

== ENCOUNTER 2024-12-09 10:04 | Outpatient (CLI) | payer MEDICARE, SELFPAY ==
--- NOTE | ~2024-12-09 | XR_ITS ---
Thoracic spine: Clinical Indication: Back pain AP and lateral views were performed. No fracture is seen. There is normal alignment of the vertebrae. There is mild to moderate degenerat wandy disc change throughout the thoracic spine. Paravertebral soft tissues appear normal. Impression: Mild to moderate degenerative disc changes throughout the thoracic spine. Reviewed, dictated and finalized at location . Impression: Mild to moderate degenerative disc changes throughout the thoracic spine.
--- NOTE | ~2024-12-09 | XR_ITS ---
Lumbosacral Spine: AP and lateral views Clinical History: Pain Findings: The normal lordotic curve is maintained. No fracture. There is 10 mm anterolisthesis of L4 over L5. There is severe degenerative disc narrowing at L1-L4, and L5-S1. There is advanced facet art hropathy, especially from L4 through S1. The sacroiliac joints are normally outlined. Impression: Severe degenerative spondylosis. 10 mm anterolisthesis of L4 over L5. Reviewed, dictated and finalized at location M. Impression: Severe degenerative spondylosis. 10 mm anterolisthesis of L4 over L5.
[2024-12-09 11:00] LABS: Prothrombin Time 67.1 Seconds (9.50-12.1)
[2024-12-09 11:06] LABS: INR 7.4
--- OUTSIDE RECORDS SUMMARY | 2024-12-09 11:23 | XMS_ITS ---
Author Organization [facility] Address [address] [place], [place] [address] Care Team Providers Care Digital Controls Technical Officer Name Role Phone MI JEREZ Unavailable [phone] Lasha Mahmood Unavailable Unavailable REASON FOR VISIT *General care Encounters Encounter Location Date Provider Diagnosis [place] [place], [place] [address] 08/08/2023 MI JEREZ Plan Of Treatment No Information Progress Notes * MADISON GARNERDOB: 4 (79 yo F)Acc No.[id number]:08/08/2023 Patient: MADISON BENEDICT Provider: Silvia JEREZ :1945 A ge:77 Y S ex:Female Date:08/08/2023 Address:[address] [facility] Subjective: * Chief Complaints: * 1 . *General care. * Medical History: Objective: * Vitals: Assessment: Plan: * Treatment: * Billing Information: * Visit Code: * Procedure Codes: * Electronic signature of FLOYD JEREZ DPM on 12/09/2024 at 11:23 AM CDT Sign off status: Pending * Provider: Silvia JEREZ Date: 1 10/09/2022 Generated for Vanessai ng/Fapriceg/eTransmitting on: 0 12/09/2024 11:23 AM CDT
--- OUTSIDE RECORDS SUMMARY | 2024-12-09 11:24 | XMS_ITS ---
Author Organization [facility] Address [address] [place], [place] [address] Care Team Providers Care Enterostomal Therapy Nurse Name Role Phone MERI MI Unavailable [phone] Lasha Mahmood Unavailable Unavailable Allergies Allergen (clinical [...] 11/14/2023 Encounters Encounter Location Date Provider Diagnosis [place] [place], [place] [address] 11/14/2023 MI JEREZ Other hammer toe(s) (acquired), right foot M20.41 ; Tinea unguium B35.1 ; Other hammer toe(s) (acquired), left foot M20.42 ; Pain in right toe(s) M79.674 ; Pain in left toe(s) M79.675 ; 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 [...] Patient denies c hest pain, history of [place], irregular heartbeat. M usculoskeletal: Patient denies a [...] M79.675 6 . U nspecified atherosclerosis of knik arteries of extremities, bilateral legs - I70.203 [...] were emphasized. 3. U nspecified atherosclerosis of knik arteries of extremities, bilateral legs Notes: Patient [...] Information: * Visit Code: * Procedure Codes: 60437 DEBRIDE NAIL, 6 OR MORE. Modifiers: Q8 * Sign off status: Completed true * Provider: Silvia JEREZ Date: 0 11/14/2023 Generated for Nancy bruno/Ehsan/Regine on: 0 12/09/2024 11:24 AM CDT History and Physical Notes * [...]
--- OUTSIDE RECORDS SUMMARY | 2024-12-09 11:24 | XMS_ITS ---
Author Organization [facility] Address [address] [place], [place] [address] Care Team Providers Care Fitness Club Manager Name Role Phone MI JEREZ Unavailable [phone] Lasha Mahmood Unavailable Unavailable REASON FOR VISIT *General care Encounters Encounter Location Date Provider Diagnosis [address] [id number] 01/16/2024 MI JEREZ Plan Of Treatment No Information Progress Notes * MADISON GARNERDOB: (79 yo F)Acc No.[id number]:01/16/2024 Patient: Deshaun ESTRADAMADISON Provider: Silvia JEREZ :1945 A ge:78 Y S ex:Female Date:01/16/2024 Address:[address] [place], [place] [address] Subjective: * Chief Complaints: * 1 . *General care. * Medical History: Objective: * Vitals: Assessment: Plan: * Treatment: * Billing Information: * Visit Code: * Procedure Codes: * Electronic signature of FLOYD JEREZ DPM on 12/09/2024 at 11:23 AM CDT Sign off status: Pending * Provider: Silvia JEREZ Date: 0 01/16/2024 Generated for Vanessai ng/Faluis/eTransmitting on: 0 12/09/2024 11:23 AM CDT
--- OUTSIDE RECORDS SUMMARY | 2024-12-09 11:24 | XMS_ITS | Patient Health Record ---
Author Organization [facility] Address [address] [place], [place] [address] Care Team Providers Care Special Trackwork Blacksmith Name Role Phone MI JEREZ Unavailable [phone] Lasha Mahmood Unavailable Unavailable Allergies Allergen (clinical [...] Date Coverage End Date Medicare Part B [place] [address] [place] [address] [id number] MADISON GARNER Self - patient is the insured [facility] ([facility]) ATTN CLAIMS [address] [place] [address] [id number] MADISON GARNER Self - patient is the insured Medical (General) History Medical History History ICD Code kidney stones neuropathy Arthritis Bladder infections Diabetic Blood clots
--- OUTSIDE RECORDS SUMMARY | 2024-12-09 11:24 | XMS_ITS | Clinical Summary ---
Author Organization [facility] Address [address] [place] [address] Care Team Providers Care Head Still Operator Name Role Phone Beth Peterson FISHING MANAGER Unavailable Allergies No known active allergies [...] hyperosmolarity without nonketotic hyperglycemic-hyper osmolar coma (NKHHC) ([facility]) Per sliding scale 0-149 = 0 [...] hyperglycemic-hyper osmolar coma (NKHHC) ([facility]) Take 1 tablet (500 mg total) [...] with hyperosmolarity without nonketotic hyperglycemic-hyperosmolar coma (NKHHC) ([facility]) 08/17/2021 Personal history of noncompl iance [...] Dates Next Due Influenza Adult (Generic) 08/15/2021,03/2017,05/29/2016,2014 [employer] ([employer]) COVID-19 AD26 VACCINE 0.5 ML IM SUSP [...] on file Legal Sex Female 2:51 PM PROFESSOR CRIMINAL JUSTICE Gender Identity Not on file Sexual Orientation Not on file Last Filed Vital Signs Vital Sign Reading Time Taken Comments Blood Pressure 122/45 09/13/2021 8:55 AM PROFESSOR CRIMINAL JUSTICE Pulse 76 09/13/2021 8:55 AM PROFESSOR CRIMINAL JUSTICE Temperature 36.7 C (98 F) 09/13/2021 8:55 AM PROFESSOR CRIMINAL JUSTICE Respiratory Rate 20 09/13/2021 8:55 AM PROFESSOR CRIMINAL JUSTICE Oxygen Saturation 97% 09/13/2021 8:55 AM PROFESSOR CRIMINAL JUSTICE Inhaled Oxygen Concentration - - Weight 103 kg (227 lb) 09/13/2021 8:55 AM PROFESSOR CRIMINAL JUSTICE Height 157.5 cm (5' 2 ) 07/15/2021 3:08 PM PROFESSOR CRIMINAL JUSTICE Body Mass Index 41.52 07/15/2021 3:08 PM PROFESSOR CRIMINAL JUSTICE Plan of Treatment Health Maintenance Due Date [...] home safety measures General No Theresa Belle raftsman Procedure Name Priority Date/Time Associated Diagnosis Comments HEMOGLOBIN, GLYCOSYLATED Routine 08/29/2021 8:20 AM PROFESSOR CRIMINAL JUSTICE from Last 3 Months or Most Recently Relevant to Health Maintenance Results * (ABNORMAL) HEMOGLOBIN, GLYCOSYLATED (08/29/2021 8:20 AM PROFESSOR CRIMINAL JUSTICE) HGB A1C 8.3(H) 4.2 - 6.3 % [facility] Comment: Note: Hemoglobinopathies such as HbF, HbS, etc. may give incorrect results with this test. ESTIMATED AVG GLUCOSE 190 mg/dL [facility] Comment: (This value is a calculated estimate of the mean blood glucose over the last 60 days based on the patient's HgbA1c value. 08/29/2021 8:20 AM PROFESSOR CRIMINAL JUSTICE 08/29/2021 8:20 AM PROFESSOR CRIMINAL JUSTICE us Ryan Contreras DO LABORATORY Final Result [facility] [address] [place] [address] from Last 3 Months or Most Recently Relevant to Health Maintenance Advance Directives Documents on File Type Date Recorded Patient Gizzard Puller Expl anation DNR (Do Not Resuscitate) Documentation 08/22/2021 9:38 AM POLST * DNR (Latest Code Status on File) Date Activated Date Inactivated Comments 08/23/2021 9:40 AM * Full Code Date Activated Date Inactivated Comments 08/17/2021 2:39 PM 08/23/2021 9:40 AM * Full Code Date Activated Date Inactivated Comments 07/16/2021 12:10 AM 07/19/2021 10:01 PM Care Teams Head Still Operator Relationship Specialty Start Date End Date Beth Peterson NP Nurse Practitioner [facility] 08/14/21
== END 2024-12-09 10:05 | disposition home or self-care (01) ==
PROVIDERS: PCP Family Medicine; Visit Provider Family Medicine
DX: I50.33 Acute on chronic diastolic (congestive) heart failure (principal); Z79.01 Long term (current) use of anticoagulants
CPT/HCPCS: 36415; 72072; 72100; 85610

== ENCOUNTER 2024-12-14 10:46 | Outpatient (CLI) | payer MEDICARE, SELFPAY ==
[2024-12-14 11:27] LABS: INR 3.1; Prothrombin Time 30.9 Seconds (9.50-12.1)
--- OUTSIDE RECORDS SUMMARY | 2024-12-14 12:15 | XMS_ITS ---
Author Organization [facility] Address [address] [place], [place] [address] Care Team Providers Care Stunt Person Name Role Phone MI JEREZ Unavailable [phone] Lasha Mahmood Unavailable Unavailable REASON FOR VISIT *General care Encounters Encounter Location Date Provider Diagnosis [place] [address] [place], [place] [address] 08/08/2023 MI JEREZ Plan Of Treatment No Information Progress Notes * MADISON GARNERDOB: 4 (79 yo F)Acc No.[id number]:08/08/2023 Patient: MADISON BENEDICT Provider: Silvia JEREZ :1945 A ge:77 Y S ex:Female Date:08/08/2023 Address:[address] [facility] Subjective: * Chief Complaints: * 1 . *General care. * Medical History: Objective: * Vitals: Assessment: Plan: * Treatment: * Billing Information: * Visit Code: * Procedure Codes: * Electronic signature of FLOYD JEREZ DPM on 12/14/2024 at 12:15 PM CDT Sign off status: Pending * Provider: Silvia JEREZ Date: 1 10/09/2022 Generated for Printi ng/Faxing/eTransmitting on: 0 12/14/2024 12:15 PM CDT
--- OUTSIDE RECORDS SUMMARY | 2024-12-14 12:15 | XMS_ITS ---
Author Organization [facility] Address [address] [place], [place] [address] Care Team Providers Care Bowling Ball Assembler Name Role Phone MI JEREZ Unavailable [phone] Lasha Mahmood Unavailable Unavailable REASON FOR VISIT *General care Encounters Encounter Location Date Provider Diagnosis [address] [phone] 01/16/2024 MI JEREZ Plan Of Treatment No Information Progress Notes * MADISON GARNERDOB: (79 yo F)Acc No.[id number]:01/16/2024 Patient: Deshaun ESTRADAMADISON Provider: Silvia JEREZ :1945 A ge:78 Y S ex:Female Date:01/16/2024 Address:[address] [place], [place] [address] Subjective: * Chief Complaints: * 1 . *General care. * Medical History: Objective: * Vitals: Assessment: Plan: * Treatment: * Billing Information: * Visit Code: * Procedure Codes: * Electronic signature of FLOYD JEREZ DPM on 12/14/2024 at 12:15 PM CDT Sign off status: Pending * Provider: Silvia JEREZ Date: 0 01/16/2024 Generated for Vanessai ng/Fapriceg/eTransmitting on: 0 12/14/2024 12:15 PM CDT
--- OUTSIDE RECORDS SUMMARY | 2024-12-14 12:15 | XMS_ITS ---
Author Organization [facility] Address [address] [place], [place] [address] Care Team Providers Care Professor Of Political Science Name Role Phone MERI MI Unavailable [phone] Lasha Mahmood Unavailable Unavailable Allergies Allergen (clinical [...] 11/14/2023 Encounters Encounter Location Date Provider Diagnosis [place] [address] [place], [place] [address] 11/14/2023 MI JEREZ Other hammer toe(s) (acquired), right foot M20.41 ; Tinea unguium B35.1 ; Other hammer toe(s) (acquired), left foot M20.42 ; Pain in right toe(s) M79.674 ; Pain in left toe(s) M79.675 ; Unspecified atherosclerosis of samish arteries of extremities, bilateral legs I70.203 and [...] (ICD-10 - M79.675) 11/14/2023 Unspecified atherosclerosis of samish arteries of extremities, bilateral legs (ICD-10 - [...] OTC and prescription treatments. Unspecified atherosclerosis of samish arteries of extremities, bilateral legs Patient educated [...] * TJ GARNERVIKADOB: 4 (78 yo F)Acc No.[id number]:11/14/2023 Patient: MADISON BENEDICT Provider: Silvia JEREZ :1945 A ge:78 Y S ex:Female Date:11/14/2023 Address:[address] [place], [place] [address] Subjective: * Chief Complaints: * 1 . [...] Patient denies c hest pain, history of [place], irregular heartbeat. M usculoskeletal: Patient denies a [...] M79.675 6 . U nspecified atherosclerosis of samish arteries of extremities, bilateral legs - I70.203 [...] were emphasized. 3. U nspecified atherosclerosis of samish arteries of extremities, bilateral legs Notes: Patient [...] Information: * Visit Code: * Procedure Codes: 29781 DEBRIDE NAIL, 6 OR MORE. Modifiers: Q8 * Sign off status: Completed true * Provider: Silvia JEREZ Date: 0 11/14/2023 Generated for Nancy bruno/Ehsan/Regine on: 0 12/14/2024 12:15 PM CDT History and Physical Notes * [...]
--- OUTSIDE RECORDS SUMMARY | 2024-12-14 12:15 | XMS_ITS | Patient Health Record ---
Author Organization [facility] Address [address] [place], [place] [address] Care Team Providers Care Anchorer Name Role Phone MI JEREZ Unavailable [phone] Lasha Mahmood Unavailable Unavailable Allergies Allergen (clinical [...] Date Coverage End Date Medicare Part B [place] [address] [place] [address] [id number] MADISON GARNER Self - patient is the insured [facility] ([facility]) ATTN CLAIMS [address] [place] [address] [id number] MADISON GARNER Self - patient is the insured Medical (General) History Medical History History ICD Code kidney stones neuropathy Arthritis Bladder infections Diabetic Blood clots
--- OUTSIDE RECORDS SUMMARY | 2024-12-14 12:15 | XMS_ITS | Clinical Summary ---
Author Organization [facility] Address [address] [place] [address] Care Team Providers Care Zigzagger Name Role Phone Beth Peterson TOP WADDY Unavailable Allergies No known active allergies Medications [...] (NKHHC) ([facility]) Per sliding scale 0-149 = 0 units [...] hyperosmolarity without nonketotic hyperglycemic-hyper osmolar coma (NKHHC) ([facility]) Take 1 tablet (500 mg total) by [...] with hyperosmolarity without nonketotic hyperglycemic-hyperosmolar coma (NKHHC) ([facility]) 08/17/2021 Personal history of noncompl iance with [...] 08/17/2021 UTI (urinary tract infection) 07/16/2021 Immunizations Immunization Administration Dates Next Due Influenza Adult (Generic) 08/15/2021,03/2017,05/29/2016,2014 [employer] ([employer]) COVID-19 AD26 VACCINE 0.5 ML IM SUSP [...] on file Legal Sex Female 2:51 PM HYDRATOR OPERATOR Gender Identity Not on file Sexual Orientation Not on file Last Filed Vital Signs Vital Sign Reading Time Taken Comments Blood Pressure 122/45 09/13/2021 8:55 AM HYDRATOR OPERATOR Pulse 76 09/13/2021 8:55 AM HYDRATOR OPERATOR Temperature 36.7 C (98 F) 09/13/2021 8:55 AM HYDRATOR OPERATOR Respiratory Rate 20 09/13/2021 8:55 AM HYDRATOR OPERATOR Oxygen Saturation 97% 09/13/2021 8:55 AM HYDRATOR OPERATOR Inhaled Oxygen Concentration - - Weight 103 kg (227 lb) 09/13/2021 8:55 AM HYDRATOR OPERATOR Height 157.5 cm (5' 2 ) 07/15/2021 3:08 PM HYDRATOR OPERATOR Body Mass Index 41.52 07/15/2021 3:08 PM HYDRATOR OPERATOR Plan of Treatment Health Maintenance Due Date Last Done Comments Kidney Health Evaluation 1945 Lipid Panel 1943 Diabetes: Retinopathy Eye Exam 1961 DTaP, Tdap and Td Vaccines ( 1 - Tdap) 1962 Zoster Vaccines (1 of 2) 1993 Dexa Scan (General) 2008 Pneumococcal Vaccine: 50+ Years (2 of 2 - PPSV23 or [...] home safety measures General No Theresa Belle dtp operator Procedure Name Priority Date/Time Associated Diagnosis Comments HEMOGLOBIN, GLYCOSYLATED Routine 08/29/2021 8:20 AM HYDRATOR OPERATOR from Last 3 Months or Most Recently Relevant to Health Maintenance Results * (ABNORMAL) HEMOGLOBIN, GLYCOSYLATED (08/29/2021 8:20 AM HYDRATOR OPERATOR) HGB A1C 8.3(H) 4.2 - 6.3 % [facility] Comment: Note: Hemoglobinopathies such as HbF, HbS, etc. may give incorrect results with this test. ESTIMATED AVG GLUCOSE 190 mg/dL [facility] Comment: (This value is a calculated estimate of the mean blood glucose over the last 60 days based on the patient's HgbA1c value. 08/29/2021 8:20 AM HYDRATOR OPERATOR 08/29/2021 8:20 AM HYDRATOR OPERATOR us Ryan Contreras DO LABORATORY Final Result [facility] [address] [place] [address] from Last 3 Months or Most Recently Relevant to Health Maintenance Advance Directives Documents on File Type Date Recorded Patient Lens Molder Expl anation DNR (Do Not Resuscitate) Documentation 08/22/2021 9:38 AM POLST * DNR (Latest Code Status on File) Date Activated Date Inactivated Comments 08/23/2021 9:40 AM * Full Code Date Activated Date Inactivated Comments 08/17/2021 2:39 PM 08/23/2021 9:40 AM * Full Code Date Activated Date Inactivated Comments 07/16/2021 12:10 AM 07/19/2021 10:01 PM Care Teams Zigzagger Relationship Specialty Start Date End Date Beth Peterson NP Nurse Practitioner [facility] 08/14/21
== END 2024-12-14 10:47 | disposition home or self-care (01) ==
LOC: CHSLAB 10:48
PROVIDERS: PCP Family Medicine; Visit Provider Family Medicine
DX: Z79.01 Long term (current) use of anticoagulants (principal)
CPT/HCPCS: 36415; 85610

== ENCOUNTER 2024-12-16 10:42 | Outpatient (CLI) | payer MEDICARE, SELFPAY ==
[2024-12-16 11:38] LABS: INR 1.9; Prothrombin Time 19.8 Seconds (9.50-12.1)
--- OUTSIDE RECORDS SUMMARY | 2024-12-16 11:59 | XMS_ITS ---
Author Organization [facility] Address [address] [place], [place] [phone] Care Team Providers Care Telephone Sterilizer Name Role Phone MI JEREZ Unavailable [phone] Lasha Mahmood Unavailable Unavailable REASON FOR VISIT *General care Encounters Encounter Location Date Provider Diagnosis [place] [address] [place], [place] [phone] 08/08/2023 MI JEREZ Plan Of Treatment No Information Progress Notes * MADISON GARNERDOB: 4 (79 yo F)Acc No.[id number]:08/08/2023 Patient: MADISON BENEDICT Provider: Silvia JEREZ :1945 A ge:77 Y S ex:Female Date:08/08/2023 Address:[address] Subjective: * Chief Complaints: * 1 . *General care. * Medical History: Objective: * Vitals: Assessment: Plan: * Treatment: * Billing Information: * Visit Code: * Procedure Codes: * Electronic signature of FLOYD JEREZ DPM on 12/16/2024 at 11:59 AM CDT Sign off status: Pending * Provider: Silvia JEREZ Date: 1 10/09/2022 Generated for Printi ng/Faxing/eTransmitting on: 0 12/16/2024 11:59 AM CDT
--- OUTSIDE RECORDS SUMMARY | 2024-12-16 12:00 | XMS_ITS | Patient Health Record ---
Author Organization [facility] Address [address] [place], [place] [address] Care Team Providers Care Factory Lay Out Engineer Name Role Phone MI JEREZ Unavailable [phone] Lasha Mahmood Unavailable Unavailable Allergies Allergen (clinical [...] Date Coverage End Date Medicare Part B [place] [address] [place] [address] [id number] MADISON GARNER Self - patient is the insured [facility] ([facility]) ATTN CLAIMS [address] [place] [address] [id number] MADISON GARNER Self - patient is the insured Medical (General) History Medical History History ICD Code kidney stones neuropathy Arthritis Bladder infections Diabetic Blood clots
--- OUTSIDE RECORDS SUMMARY | 2024-12-16 12:00 | XMS_ITS ---
Author Organization [facility] Address [address] [place], [place] [address] Care Team Providers Care Console Manager Name Role Phone MERI MI Unavailable [phone] Lasha Mahmood Unavailable Unavailable Allergies Allergen (clinical [...] 11/14/2023 Encounters Encounter Location Date Provider Diagnosis [place] [address] [place], [place] [phone] 11/14/2023 MI JEREZ Other hammer toe(s) (acquired), right foot M20.41 ; Tinea unguium B35.1 ; Other hammer toe(s) (acquired), left foot M20.42 ; Pain in right toe(s) M79.674 ; Pain in left toe(s) M79.675 ; Unspecified atherosclerosis of [place] arteries of extremities, bilateral legs I70.203 and [...] (ICD-10 - M79.675) 11/14/2023 Unspecified atherosclerosis of [place] arteries of extremities, bilateral legs (ICD-10 - [...] OTC and prescription treatments. Unspecified atherosclerosis of [place] arteries of extremities, bilateral legs Patient educated [...] * TJ GARNERVIKADOB: 4 (78 yo F)Acc No.[id number]:11/14/2023 Patient: MADISON BENEDICT Provider: Silvia JEREZ :1945 A ge:78 Y S ex:Female Date:11/14/2023 Address:[address] [place], [place] [address] Subjective: * Chief Complaints: * 1 . [...] Patient denies c hest pain, history of KS, irregular heartbeat. M usculoskeletal: Patient denies a [...] M79.675 6 . U nspecified atherosclerosis of [place] arteries of extremities, bilateral legs - I70.203 [...] were emphasized. 3. U nspecified atherosclerosis of [place] arteries of extremities, bilateral legs Notes: Patient [...] Information: * Visit Code: * Procedure Codes: 17060 DEBRIDE NAIL, 6 OR MORE. Modifiers: Q8 * Sign off status: Completed true * Provider: Silvia JEREZ Date: 0 11/14/2023 Generated for Nancy bruno/Ehsan/Regine on: 0 12/16/2024 12:00 PM CDT History and Physical Notes * [...]
--- OUTSIDE RECORDS SUMMARY | 2024-12-16 12:00 | XMS_ITS | Clinical Summary ---
Author Organization [facility] Address [address] [place] [address] Care Team Providers Care Adobe Maker Name Role Phone Beth Peterson ACADEMIC SUPPORT CENTER DIRECTOR Unavailable Allergies No known active allergies [...] coma (NKHHC) ([facility]) Per sliding scale 0-149 = 0 units [...] hyperosmolarity without nonketotic hyperglycemic-hyper osmolar coma (NKHHC) ([facility]) Take 1 tablet (500 mg total) by [...] with hyperosmolarity without nonketotic hyperglycemic-hyperosmolar coma (NKHHC) ([facility]) 08/17/2021 Personal history of noncompl iance with [...] Dates Next Due Influenza Adult (Generic) 08/15/2021,03/2017,05/29/2016,2014 [employer] ([employer]) COVID-19 AD26 VACCINE 0.5 ML IM SUSP [...] on file Legal Sex Female 2:51 PM PLASTERING SUPERVISOR Gender Identity Not on file Sexual Orientation Not on file Last Filed Vital Signs Vital Sign Reading Time Taken Comments Blood Pressure 122/45 09/13/2021 8:55 AM PLASTERING SUPERVISOR Pulse 76 09/13/2021 8:55 AM PLASTERING SUPERVISOR Temperature 36.7 C (98 F) 09/13/2021 8:55 AM PLASTERING SUPERVISOR Respiratory Rate 20 09/13/2021 8:55 AM PLASTERING SUPERVISOR Oxygen Saturation 97% 09/13/2021 8:55 AM PLASTERING SUPERVISOR Inhaled Oxygen Concentration - - Weight 103 kg (227 lb) 09/13/2021 8:55 AM PLASTERING SUPERVISOR Height 157.5 cm (5' 2 ) 07/15/2021 3:08 PM PLASTERING SUPERVISOR Body Mass Index 41.52 07/15/2021 3:08 PM PLASTERING SUPERVISOR Plan of Treatment Health Maintenance Due Date [...] home safety measures General No Theresa Belle public message service supervisor Procedure Name Priority Date/Time Associated Diagnosis Comments HEMOGLOBIN, GLYCOSYLATED Routine 08/29/2021 8:20 AM PLASTERING SUPERVISOR from Last 3 Months or Most Recently Relevant to Health Maintenance Results * (ABNORMAL) HEMOGLOBIN, GLYCOSYLATED (08/29/2021 8:20 AM PLASTERING SUPERVISOR) HGB A1C 8.3(H) 4.2 - 6.3 % [facility] Comment: Note: Hemoglobinopathies such as HbF, HbS, etc. may give incorrect results with this test. ESTIMATED AVG GLUCOSE 190 mg/dL [facility] Comment: (This value is a calculated estimate of the mean blood glucose over the last 60 days based on the patient's HgbA1c value. 08/29/2021 8:20 AM PLASTERING SUPERVISOR 08/29/2021 8:20 AM PLASTERING SUPERVISOR us Ryan Contreras DO LABORATORY Final Result [facility] [address] [place] [address] from Last 3 Months or Most Recently Relevant to Health Maintenance Advance Directives Documents on File Type Date Recorded Patient Environmental Designer Expl anation DNR (Do Not Resuscitate) Documentation 08/22/2021 9:38 AM POLST * DNR (Latest Code Status on File) Date Activated Date Inactivated Comments 08/23/2021 9:40 AM * Full Code Date Activated Date Inactivated Comments 08/17/2021 2:39 PM 08/23/2021 9:40 AM * Full Code Date Activated Date Inactivated Comments 07/16/2021 12:10 AM 07/19/2021 10:01 PM Care Teams Adobe Maker Relationship Specialty Start Date End Date Beth Peterson NP Nurse Practitioner [facility] 08/14/21
--- OUTSIDE RECORDS SUMMARY | 2024-12-16 12:00 | XMS_ITS ---
Author Organization [facility] Address [address] [place], [place] [phone] Care Team Providers Care Laborer Pipelines Name Role Phone MI JEREZ Unavailable [phone] Lasha Mahmood Unavailable Unavailable REASON FOR VISIT *General care Encounters Encounter Location Date Provider Diagnosis [address] [id number] 01/16/2024 MI JEREZ Plan Of Treatment No Information Progress Notes * MADISON GARNERDOB: (79 yo F)Acc No.[id number]:01/16/2024 Patient: eDshaun ESTRADAMADISON Provider: Silvia JEREZ :1945 A ge:78 Y S ex:Female Date:01/16/2024 Address:[address] [place], [place] [id number] Subjective: * Chief Complaints: * 1 . *General care. * Medical History: Objective: * Vitals: Assessment: Plan: * Treatment: * Billing Information: * Visit Code: * Procedure Codes: * Electronic signature of FLOYD JEREZ DPM on 12/16/2024 at 12:00 PM CDT Sign off status: Pending * Provider: Silvia JEREZ Date: 0 01/16/2024 Generated for Vanessai ng/Fapriceg/eTransmitting on: 12/16/2024 12:00 PM CDT
== END 2024-12-16 10:43 | disposition home or self-care (01) ==
LOC: CHSLAB 10:44
PROVIDERS: PCP Family Medicine; Visit Provider Family Medicine
DX: Z79.01 Long term (current) use of anticoagulants (principal)
CPT/HCPCS: 36415; 85610

== ENCOUNTER 2024-12-21 09:38 | Outpatient (CLI) | payer MEDICARE, SELFPAY ==
[2024-12-21 09:54] LABS: Basophils Absolute Auto 0.07 K/mm3 (0.00-0.10); Basophils Percent Auto 0.8 % (0.0-1.0); Eosinophils Absolute Auto 0.42 K/mm3 (0.02-0.50); Eosinophils Percent Auto 4.8 % (1.0-6.0); Hematocrit 33.4 % (35.0-42.0); Hemoglobin 10.2 g/dL (11.7-13.8); Immature Granulocyte Absolute 0.04 K/mm3 (0.00-0.00); Immature Granulocyte Percent A 0.5 % (0.0-0.0); Lymphocytes Absolute Auto 1.68 K/mm3 (1.10-4.50); Lymphocytes Percent Auto 19.2 % (18.0-42.0); Mean Corpuscular HGB Conc 30.5 g/dL (32-36); Mean Corpuscular Hemoglobin 32.4 pg (27.0-31.0); Mean Platelet Volume 10.9 fl (9.2-11.8); Monocytes Absolute Auto 0.76 K/mm3 (0.10-0.90); Monocytes Percent Auto 8.7 % (2.0-11.0); Neutrophils Absolute Auto 5.79 K/mm3 (1.70-7.20); Platelet Count Result 224 K/mm3 (150-420); Red Blood Count 3.15 M/mm3 (4.20-5.40); Red Cell Distribution Width 16.9 % (11.6-14.4); White Blood Count 8.8 K/mm3 (4.8-10.8)
[2024-12-21 10:36] LABS: Alanine Aminotransferase 15 U/L (14-59); Albumin Level 2.6 g/dL (3.4-5.0); Alkaline Phosphatase 71 U/L (46-116); Anion Gap 8 mmol/L (4-12); Aspartate Amino Transferase 11 U/L (15-37); Bilirubin,Total 0.5 mg/dL (0.00-1.00); Blood Urea Nitrogen 21 mg/dL (7-18); Calcium 8.7 mg/dL (8.5-10.1); Carbon Dioxide 28 mmol/L (21-32); Chloride 108 mmol/L (98-108); Estimated Glomerular Filt Rate 42; Free T4 Free Thyroxine 1.26 ng/dL (0.76-1.46); Glucose 165 mg/dL (70-99); Osmolality Calculated 305 mOsm/kg (285-295); Potassium 3.9 mmol/L (3.5-5.1); Sodium 144 mmol/L (136-145); Thyroid Stimulating Hormone 0.88 uIU/mL (0.36-3.74); Total Protein 5.9 g/dL (6.4-8.2)
--- OUTSIDE RECORDS SUMMARY | 2024-12-21 10:46 | XMS_ITS | Patient Health Record ---
Author Organization [facility] Address [address] [place], [place] [phone] Care Team Providers Care Clay Miner Name Role Phone MI JEREZ Unavailable [phone] Lasha Mahmood Unavailable Unavailable Allergies Allergen (clinical [...] Date Coverage End Date Medicare Part B [place] [address] [place] [address] [id number] MADISON GARNER Self - patient is the insured [facility] ([facility]) ATTN CLAIMS [address] [place] [address] [id number] MADISON GARNER Self - patient is the insured Medical (General) History Medical History History ICD Code kidney stones neuropathy Arthritis Bladder infections Diabetic Blood clots
--- OUTSIDE RECORDS SUMMARY | 2024-12-21 10:46 | XMS_ITS ---
Author Organization [facility] Address [address] [place], [place] [phone] Care Team Providers Care Gluing Machine Offbearer Name Role Phone MI JEREZ Unavailable [phone] Lasha Mahmood Unavailable Unavailable REASON FOR VISIT *General care Encounters Encounter Location Date Provider Diagnosis [place] [place], [place] [phone] 08/08/2023 MI JEREZ Plan Of Treatment No Information Progress Notes * MADISON GARNERDOB: 4 (79 yo F)Acc No.[id number]:08/08/2023 Patient: MADISON BENEDICT Provider: Silvia JEREZ :1945 A ge:77 Y S ex:Female Date:08/08/2023 Address:[address] [phone] Subjective: * Chief Complaints: * 1 . *General care. * Medical History: Objective: * Vitals: Assessment: Plan: * Treatment: * Billing Information: * Visit Code: * Procedure Codes: * Electronic signature of FLOYD JEREZ DPM on 12/21/2024 at 10:45 AM CDT Sign off status: Pending * Provider: Silvia JEREZ Date: 1 10/09/2022 Generated for Vanessai ng/Fapriceg/eTransmitting on: 0 12/21/2024 10:45 AM CDT
--- OUTSIDE RECORDS SUMMARY | 2024-12-21 10:47 | XMS_ITS | Clinical Summary ---
Author Organization [facility] Address [address] [place] [address] Care Team Providers Care Health Economist Name Role Phone Beth Peterson SLICER MACHINE OPERATOR Unavailable Allergies No known active [...] hyperosmolarity without nonketotic hyperglycemic-hyper osmolar coma (NKHHC) ([facility] Per sliding scale 0-149 = 0 units [...] ([facility]) Take 1 tablet (500 mg total) by [...] with hyperosmolarity without nonketotic hyperglycemic-hyperosmolar coma (NKHHC) ([facility]) 08/17/2021 Personal history of noncompl iance with [...] Dates Next Due Influenza Adult (Generic) 08/15/2021,03/2017,05/29/2016,2014 [employer] ([employer]) COVID-19 AD26 VACCINE 0.5 ML IM SUSP [...] on file Legal Sex Female 2:51 PM MANAGER VIDEO Gender Identity Not on file Sexual Orientation Not on file Last Filed Vital Signs Vital Sign Reading Time Taken Comments Blood Pressure 122/45 09/13/2021 8:55 AM MANAGER VIDEO Pulse 76 09/13/2021 8:55 AM MANAGER VIDEO Temperature 36.7 C (98 F) 09/13/2021 8:55 AM MANAGER VIDEO Respiratory Rate 20 09/13/2021 8:55 AM MANAGER VIDEO Oxygen Saturation 97% 09/13/2021 8:55 AM MANAGER VIDEO Inhaled Oxygen Concentration - - Weight 103 kg (227 lb) 09/13/2021 8:55 AM MANAGER VIDEO Height 157.5 cm (5' 2 ) 07/15/2021 3:08 PM MANAGER VIDEO Body Mass Index 41.52 07/15/2021 3:08 PM MANAGER VIDEO Plan of Treatment Health Maintenance Due Date Last Done Comments Kidney Health Evaluation 1945 Lipid Panel 1945 Diabetes: Retinopathy Eye Exam 1961 DTaP, Tdap and Td Vaccines ( 1 - Tdap) 1962 Zoster Vaccines (1 of 2) 1993 Dexa Scan (General) 2008 Pneumococcal Vaccine: 50+ Years (2 of 2 - PPSV23) 07/16/2015 05/21/2015 RSV Immunization or 60+ Years [...] home safety measures General No Theresa Belle track watchman Procedure Name Priority Date/Time Associated Diagnosis Comments HEMOGLOBIN, GLYCOSYLATED Routine 08/29/2021 8:20 AM MANAGER VIDEO from Last 3 Months or Most Recently Relevant to Health Maintenance Results * (ABNORMAL) HEMOGLOBIN, GLYCOSYLATED (08/29/2021 8:20 AM MANAGER VIDEO) HGB A1C 8.3(H) 4.2 - 6.3 % [facility] Comment: Note: Hemoglobinopathies such as HbF, HbS, etc. may give incorrect results with this test. ESTIMATED AVG GLUCOSE 190 mg/dL [facility] Comment: (This value is a calculated estimate of the mean blood glucose over the last 60 days based on the patient's HgbA1c value. 08/29/2021 8:20 AM MANAGER VIDEO 08/29/2021 8:20 AM MANAGER VIDEO us Ryan Contreras DO LABORATORY Final Result [facility] [address] [place] [address] from Last 3 Months or Most Recently Relevant to Health Maintenance Advance Directives Documents on File Type Date Recorded Patient Psychiatric Tech Expl anation DNR (Do Not Resuscitate) Documentation 08/22/2021 9:38 AM POLST * DNR (Latest Code Status on File) Date Activated Date Inactivated Comments 08/23/2021 9:40 AM * Full Code Date Activated Date Inactivated Comments 08/17/2021 2:39 PM 08/23/2021 9:40 AM * Full Code Date Activated Date Inactivated Comments 07/16/2021 12:10 AM 07/19/2021 10:01 PM Care Teams Health Economist Relationship Specialty Start Date End Date Beth Peterson NP Nurse Practitioner [facility] 08/14/21
[2024-12-22 09:59] LABS: Ferritin 94 ng/mL (8-252); Folic Acid 14.8 ng/mL (8.6->20); Iron 69 ug/dL (50-170); Percent Iron Saturation 32 % (12-57)
[2024-12-22 10:00] LABS: Vitamin B12 > 2000 pg/mL (193-986)
== END 2024-12-21 09:39 | disposition home or self-care (01) ==
LOC: CHSLAB 09:40
PROVIDERS: PCP Family Medicine; Visit Provider Family Medicine
DX: I50.33 Acute on chronic diastolic (congestive) heart failure (principal); N18.31 Chronic kidney disease, stage 3a; E11.42 Type 2 diabetes mellitus with diabetic polyneuropathy
CPT/HCPCS: 36415; 80053; 82607; 82728; 82746; 83540; 83550; 84439; 84443; 85025

== ENCOUNTER 2024-12-28 13:15 | Outpatient (CLI) | payer MEDICARE, SELFPAY ==
--- NOTE | ~2024-12-28 | US_ITS ---
EXAMINATION: US soft tissue head and neck DATE: 12/28/2024 13:42 INDICATION: Palpable abnormality at the right neck TECHNIQUE: Multiple grayscale and Doppler ultrasound images of the region of concern at the submandib ular region of the right neck were obtained. COMPARISON: None FINDINGS: The right submandibular gland and normal 1.3 x 0.7 x 0.5 cm submandibular lymph node with normal echo genic central fatty hilum are seen at the region of concern. No other abnormal masses, fluid collecti ons or pathologically enlarged lymphadenopathy. IMPRESSION: 1. Normal ultrasound with no abnormal masses, fluid collections or pathologically enlarged lymphadeno shannon at the right subinsular region of concern. Reviewed, dictated and finalized at location B. IMPRESSION: 1. Normal ultrasound with no abnormal masses, fluid collections or pathological ly enlarged lymphadenopathy at the right subinsular region of concern.
--- OUTSIDE RECORDS SUMMARY | 2024-12-28 15:03 | XMS_ITS ---
Author Organization [facility] Address [address] [place], [place] [address] Care Team Providers Care Review Rn Name Role Phone MI JEREZ Unavailable [phone] Lasha Mahmood Unavailable Unavailable REASON FOR VISIT *General care Encounters Encounter Location Date Provider Diagnosis [place] [address] [place], [place] [phone] 08/08/2023 MI JEREZ Plan Of Treatment No Information Progress Notes * MADISON GARNERDOB: 4 (79 yo F)Acc No.[id number]:08/08/2023 Patient: MADISON BENEDICT Provider: Silvia JEREZ :1945 A ge:77 Y S ex:Female Date:08/08/2023 Address:[address] [facility] Subjective: * Chief Complaints: * 1 . *General care. * Medical History: Objective: * Vitals: Assessment: Plan: * Treatment: * Billing Information: * Visit Code: * Procedure Codes: * Electronic signature of FLOYD JEREZ DPM on 12/28/2024 at 03:02 PM CDT Sign off status: Pending * Provider: Silvia JEREZ Date: 1 10/09/2022 Generated for Printi ng/Faxing/eTransmitting on: 0 12/28/2024 03:02 PM CDT
--- OUTSIDE RECORDS SUMMARY | 2024-12-28 15:03 | XMS_ITS | Patient Health Record ---
Author Organization [facility] Address [address] [place], [place] [address] Care Team Providers Care Supplier Quality Manager Name Role Phone MI JEREZ Unavailable [phone] Lasha Mahmood Unavailable Unavailable Allergies Allergen (clinical [...] Part B [place] [address] [place] [address] [id number] MADISON GARNER Self - patient is the insured [facility] ([facility]) ATTN CLAIMS [address] [place] [address] [id number] MADISON GARNER Self - patient is the insured Medical (General) History Medical History History ICD Code kidney stones neuropathy Arthritis Bladder infections Diabetic Blood clots
--- OUTSIDE RECORDS SUMMARY | 2024-12-28 15:03 | XMS_ITS ---
Author Organization [facility] Address [address] [place], [place] [phone] Care Team Providers Care Shank Tapper Name Role Phone MI JEREZ Unavailable [phone] Lasha Mahmood Unavailable Unavailable REASON FOR VISIT *General care Encounters Encounter Location Date Provider Diagnosis [address] [phone] 01/16/2024 MI JEREZ Plan Of Treatment No Information Progress Notes * MADISON GARNERDOB: (79 yo F)Acc No.[id number]:01/16/2024 Patient: Deshaun ESTRADAMADISON Provider: Silvia JEREZ :1945 A ge:78 Y S ex:Female Date:01/16/2024 Address:[address] [place], [place] [phone] Subjective: * Chief Complaints: * 1 . *General care. * Medical History: Objective: * Vitals: Assessment: Plan: * Treatment: * Billing Information: * Visit Code: * Procedure Codes: * Electronic signature of FLOYD JEREZ DPM on 12/28/2024 at 03:03 PM CDT Sign off status: Pending * Provider: Silvia JEREZ Date: 0 01/16/2024 Generated for Vanessai ng/Fapriceg/eTransmitting on: 0 12/28/2024 03:03 PM CDT
--- OUTSIDE RECORDS SUMMARY | 2024-12-28 15:03 | XMS_ITS | Clinical Summary ---
Author Organization [facility] Address [address] [place] [address] Care Team Providers Care Outside Cutter Hand Name Role Phone Beth Peterson EXTENSION ASSOCIATE Unavailable Allergies No known active allergies Medications [...] (NKHHC) ([facility]) Per sliding scale 0-149 = [...] coma (NKHHC) ([facility]) Take 1 tablet (500 mg [...] (NKHHC) ([facility]) 08/17/2021 Personal history of noncompl [...] Dates Next Due Influenza Adult (Generic) 08/15/2021,03/2017,05/29/2016,2014 [employer] ([employer]) COVID-19 AD26 VACCINE 0.5 ML IM [...] on file Legal Sex Female 2:51 PM BPO SPECIALIST Gender Identity Not on file Sexual Orientation Not on file Last Filed Vital Signs Vital Sign Reading Time Taken Comments Blood Pressure 122/45 09/13/2021 8:55 AM BPO SPECIALIST Pulse 76 09/13/2021 8:55 AM BPO SPECIALIST Temperature 36.7 C (98 F) 09/13/2021 8:55 AM BPO SPECIALIST Respiratory Rate 20 09/13/2021 8:55 AM BPO SPECIALIST Oxygen Saturation 97% 09/13/2021 8:55 AM BPO SPECIALIST Inhaled Oxygen Concentration - - Weight 103 kg (227 lb) 09/13/2021 8:55 AM BPO SPECIALIST Height 157.5 cm (5' 2 ) 07/15/2021 3:08 PM BPO SPECIALIST Body Mass Index 41.52 07/15/2021 3:08 PM BPO SPECIALIST Plan of Treatment Health Maintenance Due [...] home safety measures General No Theresa Belle clay artisan Procedure Name Priority Date/Time Associated Diagnosis Comments HEMOGLOBIN, GLYCOSYLATED Routine 08/29/2021 8:20 AM BPO SPECIALIST from Last 3 Months or Most Recently Relevant to Health Maintenance Results * (ABNORMAL) HEMOGLOBIN, GLYCOSYLATED (08/29/2021 8:20 AM BPO SPECIALIST) HGB A1C 8.3(H) 4.2 - 6.3 % [facility] Comment: Note: Hemoglobinopathies such as HbF, HbS, etc. may give incorrect results with this test. ESTIMATED AVG GLUCOSE 190 mg/dL [facility] Comment: (This value is a calculated estimate of the mean blood glucose over the last 60 days based on the patient's HgbA1c value. 08/29/2021 8:20 AM BPO SPECIALIST 08/29/2021 8:20 AM BPO SPECIALIST us Ryan Contreras DO LABORATORY Final Result [facility] [address] [place] [address] from Last 3 Months or Most Recently Relevant to Health Maintenance Advance Directives Documents on File Type Date Recorded Patient Correction Officer Supervisor Expl anation DNR (Do Not Resuscitate) Documentation 08/22/2021 9:38 AM POLST * DNR (Latest Code Status on File) Date Activated Date Inactivated Comments 08/23/2021 9:40 AM * Full Code Date Activated Date Inactivated Comments 08/17/2021 2:39 PM 08/23/2021 9:40 AM * Full Code Date Activated Date Inactivated Comments 07/16/2021 12:10 AM 07/19/2021 10:01 PM Care Teams Outside Cutter Hand Relationship Specialty Start Date End Date Beth Peterson NP Nurse Practitioner [facility] 08/14/21
--- OUTSIDE RECORDS SUMMARY | 2024-12-28 15:03 | XMS_ITS ---
Author Organization [facility] Address [address] [place], [place] [address] Care Team Providers Care Transplant Worker Name Role Phone MERI MI Unavailable [phone] Lasha Mahmood Unavailable Unavailable Allergies Allergen (clinical [...] 11/14/2023 Encounters Encounter Location Date Provider Diagnosis [address] [place], [place] [phone] 11/14/2023 MI JEREZ Other hammer toe(s) (acquired), right foot M20.41 ; Tinea unguium B35.1 ; Other hammer toe(s) (acquired), left foot M20.42 ; Pain in right toe(s) M79.674 ; Pain in left toe(s) M79.675 ; Unspecified atherosclerosis of [place] arteries of extremities, bilateral legs I70.203 and [...] (ICD-10 - M79.675) 11/14/2023 Unspecified atherosclerosis of [place] arteries of extremities, bilateral legs (ICD-10 - [...] OTC and prescription treatments. Unspecified atherosclerosis of [place] arteries of extremities, bilateral legs Patient educated [...] * TJ GARNERVIKADOB: 4 (78 yo F)Acc No.[id number]:11/14/2023 Patient: MADISON BENEDICT Provider: Silvia JEREZ :1945 A ge:78 Y S ex:Female Date:11/14/2023 Address:[address] [place], [place] [id number] Subjective: * Chief Complaints: * 1 . [...] Patient denies c hest pain, history of [place], irregular heartbeat. M usculoskeletal: Patient denies a [...] M79.675 6 . U nspecified atherosclerosis of [place] arteries of extremities, bilateral legs - I70.203 [...] were emphasized. 3. U nspecified atherosclerosis of [place] arteries of extremities, bilateral legs Notes: Patient [...] Information: * Visit Code: * Procedure Codes: 57538 DEBRIDE NAIL, 6 OR MORE. Modifiers: Q8 * Sign off status: Completed true * Provider: Silvia JEREZ Date: 0 11/14/2023 Generated for Nancy bruno/Ehsan/Regine on: 0 12/28/2024 03:03 PM CDT History and Physical Notes * [...]
== END 2024-12-28 13:16 | disposition home or self-care (01) ==
PROVIDERS: PCP Family Medicine; Visit Provider Family Medicine
DX: I50.33 Acute on chronic diastolic (congestive) heart failure (principal); N18.31 Chronic kidney disease, stage 3a; E11.42 Type 2 diabetes mellitus with diabetic polyneuropathy
CPT/HCPCS: 76536

== ENCOUNTER 2024-12-31 09:42 | Outpatient (CLI) | payer MEDICARE, SELFPAY ==
--- OUTSIDE RECORDS SUMMARY | 2024-12-31 10:16 | XMS_ITS | Patient Health Record ---
Author Organization [facility] Address [address] [place], [place] [address] Care Team Providers Care Bead Wire Taper Name Role Phone MI JEREZ Unavailable [phone] Lasha Mahmood Unavailable Unavailable Allergies Allergen (clinical [...] Date Coverage End Date Medicare Part B [place] [address] [place] [address] [id number] MADISON GARNER Self - patient is the insured [facility] ([facility]) ATTN CLAIMS [address] [place] [address] [id number] MADISON GARNER Self - patient is the insured Medical (General) History Medical History History ICD Code kidney stones neuropathy Arthritis Bladder infections Diabetic Blood clots
--- OUTSIDE RECORDS SUMMARY | 2024-12-31 10:16 | XMS_ITS | Clinical Summary ---
Author Organization [facility] Address [address] [place] [address] Care Team Providers Care Scrap Burner Name Role Phone Beth Peterson ARCHITECTURE CONSULTANT Unavailable Allergies No known active allergies [...] hyperosmolarity without nonketotic hyperglycemic-hyper osmolar coma (NKH[facility]) ([facility]) Per sliding scale 0-149 = 0 [...] osmolar coma (NKHHC) ([facility]) Take 1 tablet (500 mg total) [...] with hyperosmolarity without nonketotic hyperglycemic-hyperosmolar coma (NKHHC) ([facility]) 08/17/2021 Personal history of noncompl iance [...] Dates Next Due Influenza Adult (Generic) 08/15/2021,03/2017,05/29/2016,2014 [facility] COVID-19 AD26 VACCINE 0.5 ML IM SUSP [...] on file Legal Sex Female 2:51 PM INDUSTRIAL SEWER Gender Identity Not on file Sexual Orientation Not on file Last Filed Vital Signs Vital Sign Reading Time Taken Comments Blood Pressure 122/45 09/13/2021 8:55 AM INDUSTRIAL SEWER Pulse 76 09/13/2021 8:55 AM INDUSTRIAL SEWER Temperature 36.7 C (98 F) 09/13/2021 8:55 AM INDUSTRIAL SEWER Respiratory Rate 20 09/13/2021 8:55 AM INDUSTRIAL SEWER Oxygen Saturation 97% 09/13/2021 8:55 AM INDUSTRIAL SEWER Inhaled Oxygen Concentration - - Weight 103 kg (227 lb) 09/13/2021 8:55 AM INDUSTRIAL SEWER Height 157.5 cm (5' 2 ) 07/15/2021 3:08 PM INDUSTRIAL SEWER Body Mass Index 41.52 07/15/2021 3:08 PM INDUSTRIAL SEWER Plan of Treatment Health Maintenance Due Date [...] home safety measures General No Theresa Belle foxpro developer Procedure Name Priority Date/Time Associated Diagnosis Comments HEMOGLOBIN, GLYCOSYLATED Routine 08/29/2021 8:20 AM INDUSTRIAL SEWER from Last 3 Months or Most Recently Relevant to Health Maintenance Results * (ABNORMAL) HEMOGLOBIN, GLYCOSYLATED (08/29/2021 8:20 AM INDUSTRIAL SEWER) HGB A1C 8.3(H) 4.2 - 6.3 % [facility] Comment: Note: Hemoglobinopathies such as HbF, HbS, etc. may give incorrect results with this test. ESTIMATED AVG GLUCOSE 190 mg/dL [facility] Comment: (This value is a calculated estimate of the mean blood glucose over the last 60 days based on the patient's HgbA1c value. 08/29/2021 8:20 AM INDUSTRIAL SEWER 08/29/2021 8:20 AM INDUSTRIAL SEWER us Ryan Contreras DO LABORATORY Final Result [facility] [address] [place] [address] from Last 3 Months or Most Recently Relevant to Health Maintenance Advance Directives Documents on File Type Date Recorded Patient Blow Machine Tender Starch Spraying Expl anation DNR (Do Not Resuscitate) Documentation 08/22/2021 9:38 AM POLST * DNR (Latest Code Status on File) Date Activated Date Inactivated Comments 08/23/2021 9:40 AM * Full Code Date Activated Date Inactivated Comments 08/17/2021 2:39 PM 08/23/2021 9:40 AM * Full Code Date Activated Date Inactivated Comments 07/16/2021 12:10 AM 07/19/2021 10:01 PM Care Teams Scrap Burner Relationship Specialty Start Date End Date Bteh Peterson NP Nurse Practitioner [facility] 08/14/21
--- OUTSIDE RECORDS SUMMARY | 2024-12-31 10:16 | XMS_ITS ---
Author Organization [facility] Address [address] [place], [place] [address] Care Team Providers Care Warp Doffer Name Role Phone MI JEREZ Unavailable [phone] Lasha Mahmood Unavailable Unavailable REASON FOR VISIT *General care Encounters Encounter Location Date Provider Diagnosis [address] [id number] 01/16/2024 MI JEREZ Plan Of Treatment No Information Progress Notes * MADISON GARNERDOB: 4 (79 yo F)Acc No.[id number]:01/16/2024 Patient: Deshaun ESTRADAMADISON Provider: Silvia JEREZ :1945 A ge:78 Y S ex:Female Date:01/16/2024 Address:[address] [place], [place] [phone] Subjective: * Chief Complaints: * 1 . *General care. * Medical History: Objective: * Vitals: Assessment: Plan: * Treatment: * Billing Information: * Visit Code: * Procedure Codes: * Electronic signature of FLOYD JEREZ DPM on 12/31/2024 at 10:16 AM CDT Sign off status: Pending * Provider: Silvia JEREZ Date: 01/16/2024 Generated for Vanessai ng/Faluis/eTransmitting on: 12/31/2024 10:16 AM CDT
--- OUTSIDE RECORDS SUMMARY | 2024-12-31 10:16 | XMS_ITS ---
Author Organization [facility] Address [address] [place], [place] [address] Care Team Providers Care Cash Register Repairer Name Role Phone MI JEREZ Unavailable [phone] Lasha Mahmood Unavailable Unavailable REASON FOR VISIT *General care Encounters Encounter Location Date Provider Diagnosis [address] [place], [place] [phone] 08/08/2023 MI JEREZ Plan Of Treatment No Information Progress Notes * MADISON GARNERDOB: 4 (79 yo F)Acc No.[id number]:08/08/2023 Patient: MADISON BENEDICT Provider: Silvia JEREZ :1945 A ge:77 Y S ex:Female Date:08/08/2023 Address:[address] [facility] Subjective: * Chief Complaints: * 1 . *General care. * Medical History: Objective: * Vitals: Assessment: Plan: * Treatment: * Billing Information: * Visit Code: * Procedure Codes: * Electronic signature of FLOYD JEREZ DPM on 12/31/2024 at 10:16 AM CDT Sign off status: Pending * Provider: Silvia JEREZ Date: 1 10/09/2022 Generated for Vanessai ng/Fapriceg/eTransmitting on: 0 12/31/2024 10:16 AM CDT
--- OUTSIDE RECORDS SUMMARY | 2024-12-31 10:17 | XMS_ITS ---
Author Organization [facility] Address [address] [place], [place] [address] Care Team Providers Care Java Mobile Developer Name Role Phone MERI MI Unavailable [phone] Lasha Mahmood Unavailable Unavailable Allergies Allergen (clinical [...] Encounter Location Date Provider Diagnosis [place] [address] [place], [place] [phone] 11/14/2023 MI JEREZ Other hammer toe(s) (acquired), right foot M20.41 ; Tinea unguium B35.1 ; Other hammer toe(s) (acquired), left foot M20.42 ; Pain in right toe(s) M79.674 ; Pain in left toe(s) M79.675 ; Unspecified atherosclerosis of [place] arteries of extremities, bilateral legs I70.203 and [...] (ICD-10 - M79.675) 11/14/2023 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 Unspecified atherosclerosis of [place] arteries of extremities, bilateral legs Patient educated [...] * TJ GARNERVIKADOB: 4 (78 yo F)Acc No.[id number]:11/14/2023 Patient: MADISON BENEDICT Provider: Silvia JEREZ :1945 A ge:78 Y S ex:Female Date:11/14/2023 Address:[address] [place], [place] [phone] Subjective: * Chief Complaints: * 1 . [...] Patient denies c hest pain, history of [place], irregular heartbeat. M usculoskeletal: Patient denies a [...] M79.675 6 . U nspecified atherosclerosis of [place] arteries of extremities, bilateral legs - I70.203 [...] were emphasized. 3. U nspecified atherosclerosis of [place] arteries of extremities, bilateral legs Notes: Patient [...] Information: * Visit Code: * Procedure Codes: 55994 DEBRIDE NAIL, 6 OR MORE. Modifiers: Q8 * Sign off status: Completed true * Provider: Silvia JEREZ Date: 0 11/14/2023 Generated for Nancy bruno/Ehsan/Regine on: 0 12/31/2024 10:16 AM CDT History and Physical Notes * [...]
[2024-12-31 10:18] LABS: Prothrombin Time 29.5 Seconds (9.50-12.1)
== END 2024-12-31 09:43 | disposition home or self-care (01) ==
LOC: CHSLAB 09:43
PROVIDERS: PCP Family Medicine; Visit Provider Family Medicine
DX: R79.1 Abnormal coagulation profile (principal); N39.0 Urinary tract infection, site not specified
CPT/HCPCS: 36415; 85610

== ENCOUNTER 2025-01-08 10:22 | Outpatient (CLI) | payer MEDICARE, SELFPAY ==
--- OUTSIDE RECORDS SUMMARY | 2025-01-08 10:28 | XMS_ITS | Patient Health Record ---
Author Organization [facility] Address [address] [place], [place] [address] Care Team Providers Care Effervescent Salts Compounder Name Role Phone MI JEREZ Unavailable [phone] Lasha Mahmood Unavailable Unavailable Allergies Allergen (clinical [...] Coverage End Date Medicare Part B [place] [address] [place] [address] [id number] MADISON GARNER Self - patient is the insured [facility] ([facility]) ATTN CLAIMS [address] [place] [address] [id number] MADISON GARNER Self - patient is the insured Medical (General) History Medical History History ICD Code kidney stones neuropathy Arthritis Bladder infections Diabetic Blood clots
--- OUTSIDE RECORDS SUMMARY | 2025-01-08 10:28 | XMS_ITS ---
Author Organization [facility] Address [address] [place], [place] [address] Care Team Providers Care Wallpaper Consultant Name Role Phone MI JEREZ Unavailable [phone] Lasha Mahmood Unavailable Unavailable REASON FOR VISIT *General care Encounters Encounter Location Date Provider Diagnosis [address] [place], [place] [phone] 08/08/2023 MI JEREZ Plan Of Treatment No Information Progress Notes * MADISON GARNERDOB: 4 (79 yo F)Acc No.[id number]:08/08/2023 Patient: MADISON BENEDICT Provider: Silvia JEREZ :1945 A ge:77 Y S ex:Female Date:08/08/2023 Address:[address] [facility] Subjective: * Chief Complaints: * 1 . *General care. * Medical History: Objective: * Vitals: Assessment: Plan: * Treatment: * Billing Information: * Visit Code: * Procedure Codes: * Electronic signature of FLOYD JEREZ DPM on 01/08/2025 at 10:28 AM CDT Sign off status: Pending * Provider: Silvia JEREZ Date: 1 10/09/2022 Generated for Vanessai ng/Fapriceg/eTransmitting on: 0 01/08/2025 10:28 AM CDT
--- OUTSIDE RECORDS SUMMARY | 2025-01-08 10:29 | XMS_ITS ---
Author Organization [facility] Address [address] [place], [place] [address] Care Team Providers Care Customer Service Teller Name Role Phone MERI MI Unavailable [phone] Lasha Mahmood Unavailable Unavailable Allergies Allergen (clinical [...] 11/14/2023 Encounters Encounter Location Date Provider Diagnosis [place] [address] [place], [place] [id number] 11/14/2023 MI JEREZ Other hammer toe(s) (acquired), right foot M20.41 ; Tinea unguium B35.1 ; Other hammer toe(s) (acquired), left foot M20.42 ; Pain in right toe(s) M79.674 ; Pain in left toe(s) M79.675 ; Unspecified atherosclerosis of [place] arteries of extremities, bilateral legs I70.203 and [...] (ICD-10 - M79.675) 11/14/2023 Unspecified atherosclerosis of [place] arteries of extremities, bilateral legs (ICD-10 - [...] OTC and prescription treatments. Unspecified atherosclerosis of [place] arteries of extremities, bilateral legs Patient educated [...] * TJ GARNERVIKADOB: 4 (78 yo F)Acc No.[id number]:11/14/2023 Patient: MADISON BENEDICT Provider: Silvia JEREZ :1945 A ge:78 Y S ex:Female Date:11/14/2023 Address:[address] [place], [place] [phone] Subjective: * Chief Complaints: * 1 . [...] Patient denies c hest pain, history of [place], irregular heartbeat. M usculoskeletal: Patient denies a [...] M79.675 6 . U nspecified atherosclerosis of [place] arteries of extremities, bilateral legs - I70.203 [...] were emphasized. 3. U nspecified atherosclerosis of [place] arteries of extremities, bilateral legs Notes: Patient [...] Information: * Visit Code: * Procedure Codes: 61170 DEBRIDE NAIL, 6 OR MORE. Modifiers: Q8 * Sign off status: Completed true * Provider: Silvia JEREZ Date: 0 11/14/2023 Generated for Nancy bruno/Ehsan/Regine on: 0 01/08/2025 10:28 AM CDT History and Physical Notes * [...]
--- OUTSIDE RECORDS SUMMARY | 2025-01-08 10:29 | XMS_ITS | Clinical Summary ---
Author Organization [facility] Address [address] [place] [address] Care Team Providers Care Bilingual Operator Name Role Phone Beth Peterson WEB PRESS OPERATOR ASSISTANT Unavailable Allergies No known active allergies Medications [...] hyperosmolarity without nonketotic hyperglycemic-hyper osmolar coma (NKHHC) ([facility]) Per sliding scale 0-149 = 0 units [...] hyperosmolarity without nonketotic hyperglycemic-hyper osmolar coma (NKHHC) ([facility]) Take 1 tablet (500 mg total) by [...] with hyperosmolarity without nonketotic hyperglycemic-hyperosmolar coma (NKHHC) ([facility]) 08/17/2021 Personal history of noncompl iance with [...] Dates Next Due Influenza Adult (Generic) 08/15/2021,03/2017,05/29/2016,2014 [employer] [facility]) COVID-19 AD26 VACCINE 0.5 ML IM SUSP [...] on file Legal Sex Female 2:51 PM TERMITE CONTROL SERVICER Gender Identity Not on file Sexual Orientation Not on file Last Filed Vital Signs Vital Sign Reading Time Taken Comments Blood Pressure 122/45 09/13/2021 8:55 AM TERMITE CONTROL SERVICER Pulse 76 09/13/2021 8:55 AM TERMITE CONTROL SERVICER Temperature 36.7 C (98 F) 09/13/2021 8:55 AM TERMITE CONTROL SERVICER Respiratory Rate 20 09/13/2021 8:55 AM TERMITE CONTROL SERVICER Oxygen Saturation 97% 09/13/2021 8:55 AM TERMITE CONTROL SERVICER Inhaled Oxygen Concentration - - Weight 103 kg (227 lb) 09/13/2021 8:55 AM TERMITE CONTROL SERVICER Height 157.5 cm (5' 2 ) 07/15/2021 3:08 PM TERMITE CONTROL SERVICER Body Mass Index 41.52 07/15/2021 3:08 PM TERMITE CONTROL SERVICER Plan of Treatment Health Maintenance Due Date [...] home safety measures General No Theresa Belle digital sales manager Procedure Name Priority Date/Time Associated Diagnosis Comments HEMOGLOBIN, GLYCOSYLATED Routine 08/29/2021 8:20 AM TERMITE CONTROL SERVICER from Last 3 Months or Most Recently Relevant to Health Maintenance Results * (ABNORMAL) HEMOGLOBIN, GLYCOSYLATED (08/29/2021 8:20 AM TERMITE CONTROL SERVICER) HGB A1C 8.3(H) 4.2 - 6.3 % [facility] Comment: Note: Hemoglobinopathies such as HbF, HbS, etc. may give incorrect results with this test. ESTIMATED AVG GLUCOSE 190 mg/dL [facility] Comment: (This value is a calculated estimate of the mean blood glucose over the last 60 days based on the patient's HgbA1c value. 08/29/2021 8:20 AM TERMITE CONTROL SERVICER 08/29/2021 8:20 AM TERMITE CONTROL SERVICER us Ryan Contreras DO LABORATORY Final Result [facility] [address] [place] [address] from Last 3 Months or Most Recently Relevant to Health Maintenance Advance Directives Documents on File Type Date Recorded Patient Operations Professional Expl anation DNR (Do Not Resuscitate) Documentation 08/22/2021 9:38 AM POLST * DNR (Latest Code Status on File) Date Activated Date Inactivated Comments 08/23/2021 9:40 AM * Full Code Date Activated Date Inactivated Comments 08/17/2021 2:39 PM 08/23/2021 9:40 AM * Full Code Date Activated Date Inactivated Comments 07/16/2021 12:10 AM 07/19/2021 10:01 PM Care Teams Bilingual Operator Relationship Specialty Start Date End Date Beth Peterson NP Nurse Practitioner [facility] 08/14/21
--- OUTSIDE RECORDS SUMMARY | 2025-01-08 10:29 | XMS_ITS ---
Author Organization [facility] Address [address] [place], [place] [address] Care Team Providers Care Campaign Worker Name Role Phone MI JEREZ Unavailable [phone] Lasha Mahmood Unavailable Unavailable REASON FOR VISIT *General care Encounters Encounter Location Date Provider Diagnosis [address] [phone] 01/16/2024 MI JEREZ Plan Of Treatment No Information Progress Notes * MADISON GARNERDOB: 4 (79 yo F)Acc No.[id number]:01/16/2024 Patient: Deshaun ESTRADAMADISON Provider: Silvia JEREZ :1945 A ge:78 Y S ex:Female Date:01/16/2024 Address:[address] [place], [place] [address] Subjective: * Chief Complaints: * 1 . *General care. * Medical History: Objective: * Vitals: Assessment: Plan: * Treatment: * Billing Information: * Visit Code: * Procedure Codes: * Electronic signature of FLOYD JEREZ DPM on 01/08/2025 at 10:28 AM CDT Sign off status: Pending * Provider: Silvia JEREZ Date: 01/16/2024 Generated for Nancy ng/Faluis/eTransmitting on: 01/08/2025 10:28 AM CDT
[2025-01-08 11:10] LABS: INR 4.1; Prothrombin Time 39.1 Seconds (9.50-12.1)
== END 2025-01-08 10:23 | disposition home or self-care (01) ==
LOC: CHSLAB 10:23
PROVIDERS: PCP Family Medicine; Visit Provider Family Medicine
DX: I82.441 Acute embolism and thrombosis of right tibial vein (principal); R79.1 Abnormal coagulation profile; I50.33 Acute on chronic diastolic (congestive) heart failure
CPT/HCPCS: 36415; 85610

== ENCOUNTER 2025-01-11 13:42 | Outpatient (CLI) | payer MEDICARE, SELFPAY ==
--- OUTSIDE RECORDS SUMMARY | 2025-01-11 13:46 | XMS_ITS | Patient Health Record ---
Author Organization [facility] Address [address] [place], [place] [address] Care Team Providers Care Lithograph Press Operator Name Role Phone MI JEREZ Unavailable [phone] Lasha Mahmood Unavailable Unavailable Allergies Allergen (clinical [...] Date Coverage End Date Medicare Part B [place] [address] [place] [address] [id number] MADISON GARNER Self - patient is the insured [facility] ([facility]) ATTN CLAIMS [address] [place] [address] [id number] MADISON GARNER Self - patient is the insured Medical (General) History Medical History History ICD Code kidney stones neuropathy Arthritis Bladder infections Diabetic Blood clots
--- OUTSIDE RECORDS SUMMARY | 2025-01-11 13:46 | XMS_ITS ---
Author Organization [facility] Address [address] [place], [place] [address] Care Team Providers Care Electron Beam Operator Name Role Phone MI JEREZ Unavailable [phone] Lasha Mahmood Unavailable Unavailable REASON FOR VISIT *General care Encounters Encounter Location Date Provider Diagnosis [place] [address] [place], [place] [address] 08/08/2023 MI JEREZ Plan Of Treatment No Information Progress Notes * MADISON GARNERDOB: 4 (79 yo F)Acc No.[id number]:08/08/2023 Patient: MADISON BENEDICT Provider: Silvia JEREZ :1945 A ge:77 Y S ex:Female Date:08/08/2023 Address:[address] [facility] Subjective: * Chief Complaints: * 1 . *General care. * Medical History: Objective: * Vitals: Assessment: Plan: * Treatment: * Billing Information: * Visit Code: * Procedure Codes: * Electronic signature of FLOYD JEREZ DPM on 01/11/2025 at 01:46 PM CDT Sign off status: Pending * Provider: Silvia JEREZ Date: 1 10/09/2022 Generated for Printi ng/Faxing/eTransmitting on: 0 01/11/2025 01:46 PM CDT
--- OUTSIDE RECORDS SUMMARY | 2025-01-11 13:47 | XMS_ITS ---
Author Organization [facility] Address [address] [place], [place] [address] Care Team Providers Care Laborer Vineyard Name Role Phone MI JEREZ Unavailable [phone] Lasha Mahmood Unavailable Unavailable REASON FOR VISIT *General care Encounters Encounter Location Date Provider Diagnosis [address] [phone] 01/16/2024 MI JEREZ Plan Of Treatment No Information Progress Notes * MADISON GARNERDOB: [birth year] (79 yo F)Acc No.[id number]:01/16/2024 Patient: Deshaun ESTRADAMADISON Provider: Silvia JEREZ :1945 A ge:78 Y S ex:Female Date:01/16/2024 Address:[address] [place], [place] [id number] Subjective: * Chief Complaints: * 1 . *General care. * Medical History: Objective: * Vitals: Assessment: Plan: * Treatment: * Billing Information: * Visit Code: * Procedure Codes: * Electronic signature of FLOYD JEREZ DPM on 01/11/2025 at 01:46 PM CDT Sign off status: Pending * Provider: Silvia JEREZ Date: 01/16/2024 Generated for Vanessai ng/Fapriceg/eTransmitting on: 01/11/2025 01:46 PM CDT
--- OUTSIDE RECORDS SUMMARY | 2025-01-11 13:47 | XMS_ITS | Clinical Summary ---
Author Organization [facility] Address [address] [place] [address] Care Team Providers Care Medical Records Secretary Name Role Phone Beth Peterson SPANISH SPEAKING NANNY Unavailable Allergies No known active allergies Medications [...] hyperosmolarity without nonketotic hyperglycemic-hyper osmolar coma (NKHHC) ([facility]) Per sliding scale 0-149 = 0 units [...] hyperosmolarity without nonketotic hyperglycemic-hyper osmolar coma (NKHHC) ([facility]) Take 1 tablet (500 mg total) by [...] with hyperosmolarity without nonketotic hyperglycemic-hyperosmolar coma (NKHHC) ([facility]) 08/17/2021 Personal history of noncompl iance with [...] Dates Next Due Influenza Adult (Generic) 08/15/2021,03/2017,05/29/2016,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) COVID-19 AD26 VACCINE 0.5 ML IM SUSP [...] on file Legal Sex Female 2:51 PM CONTENT SPECIALIST Gender Identity Not on file Sexual Orientation Not on file Last Filed Vital Signs Vital Sign Reading Time Taken Comments Blood Pressure 122/45 09/13/2021 8:55 AM CONTENT SPECIALIST Pulse 76 09/13/2021 8:55 AM CONTENT SPECIALIST Temperature 36.7 C (98 F) 09/13/2021 8:55 AM CONTENT SPECIALIST Respiratory Rate 20 09/13/2021 8:55 AM CONTENT SPECIALIST Oxygen Saturation 97% 09/13/2021 8:55 AM CONTENT SPECIALIST Inhaled Oxygen Concentration - - Weight 103 kg (227 lb) 09/13/2021 8:55 AM CONTENT SPECIALIST Height 157.5 cm (5' 2 ) 07/15/2021 3:08 PM CONTENT SPECIALIST Body Mass Index 41.52 07/15/2021 3:08 PM CONTENT SPECIALIST Plan of Treatment Health Maintenance Due [...] home safety measures General No Theresa Belle finished garment inspector Procedure Name Priority Date/Time Associated Diagnosis Comments HEMOGLOBIN, GLYCOSYLATED Routine 08/29/2021 8:20 AM CONTENT SPECIALIST from Last 3 Months or Most Recently Relevant to Health Maintenance Results * (ABNORMAL) HEMOGLOBIN, GLYCOSYLATED (08/29/2021 8:20 AM CONTENT SPECIALIST) HGB A1C 8.3(H) 4.2 - 6.3 % [facility] Comment: Note: Hemoglobinopathies such as HbF, HbS, etc. may give incorrect results with this test. ESTIMATED AVG GLUCOSE 190 mg/dL [facility] Comment: (This value is a calculated estimate of the mean blood glucose over the last 60 days based on the patient's HgbA1c value. 08/29/2021 8:20 AM CONTENT SPECIALIST 08/29/2021 8:20 AM CONTENT SPECIALIST us Ryan Contreras DO LABORATORY Final Result [facility] [address] [place] [address] from Last 3 Months or Most Recently Relevant to Health Maintenance Advance Directives Documents on File Type Date Recorded Patient Gas Utility Worker Expl anation DNR (Do Not Resuscitate) Documentation 08/22/2021 9:38 AM POLST * DNR (Latest Code Status on File) Date Activated Date Inactivated Comments 08/23/2021 9:40 AM * Full Code Date Activated Date Inactivated Comments 08/17/2021 2:39 PM 08/23/2021 9:40 AM * Full Code Date Activated Date Inactivated Comments 07/16/2021 12:10 AM 07/19/2021 10:01 PM Care Teams Medical Records Secretary Relationship Specialty Start Date End Date Beth Peterson NP Nurse Pract[facility]er [facility] 08/14/21
--- OUTSIDE RECORDS SUMMARY | 2025-01-11 13:47 | XMS_ITS ---
Author Organization [facility] Address [address] [place], [place] [address] Care Team Providers Care Physical Plant Manager Name Role Phone MERI MI Unavailable [phone] Lasha Mahmood Unavailable Unavailable Allergies Allergen (clinical [...] 11/14/2023 Encounters Encounter Location Date Provider Diagnosis [address] [place], [place] [phone] 11/14/2023 MI JEREZ Other hammer toe(s) (acquired), [...] * TJ GARNERVIKADOB: 4 (78 yo F)Acc No.[id number]:11/14/2023 Patient: MADISON BENEDICT Provider: Silvia JEREZ :1945 A ge:78 Y S ex:Female Date:11/14/2023 Address:[address] [place], [place] [address] Subjective: * Chief Complaints: * 1 . [...] Information: * Visit Code: * Procedure Codes: 60477 DEBRIDE NAIL, 6 OR MORE. Modifiers: Q8 * Sign off status: Completed true * Provider: Silvia JEREZ Date: 0 11/14/2023 Generated for Nancy bruno/Ehsan/Regine on: 0 01/11/2025 01:46 PM CDT History and Physical Notes * [...]
[2025-01-11 14:32] LABS: INR 3.1; Prothrombin Time 30.8 Seconds (9.50-12.1)
== END 2025-01-11 13:43 | disposition home or self-care (01) ==
LOC: CHSLAB 13:44
PROVIDERS: PCP Family Medicine; Visit Provider Family Medicine
DX: R79.1 Abnormal coagulation profile (principal); Z79.01 Long term (current) use of anticoagulants
CPT/HCPCS: 36415; 85610

== ENCOUNTER 2025-01-12 20:53 | Outpatient (NON) | payer MEDICARE, SELFPAY ==
--- OUTSIDE RECORDS SUMMARY | 2025-01-12 20:59 | XMS_ITS | Patient Health Record ---
Author Organization [facility] Address [address] [place], [place] [address] Care Team Providers Care Boarding Room Fixer Name Role Phone MI JEREZ Unavailable [phone] Lasha Mahmood Unavailable Unavailable Allergies Allergen (clinical [...] Date Coverage End Date Medicare Part B [place] [address] [place] [address] [id number] MADISON GARNER Self - patient is the insured [facility] ([facility] ATTN CLAIMS [address] [place] [address] [id number] MADISON GARNER Self - patient is the insured Medical (General) History Medical History History ICD Code kidney stones neuropathy Arthritis Bladder infections Diabetic Blood clots
--- OUTSIDE RECORDS SUMMARY | 2025-01-12 20:59 | XMS_ITS ---
Author Organization [facility] Address [address] [place], [place] [address] Care Team Providers Care Flour Broker Name Role Phone MI JEREZ Unavailable [phone] Lasha Mahmood Unavailable Unavailable REASON FOR VISIT *General care Encounters Encounter Location Date Provider Diagnosis [address] [place], [place] [phone] 08/08/2023 MI JEREZ Plan Of Treatment No Information Progress Notes * MADISON GARNERDOB: 4 (79 yo F)Acc No.[id number]:08/08/2023 Patient: MADISON BENEDICT Provider: Silvia JEREZ :1945 A ge:77 Y S ex:Female Date:08/08/2023 Address:[address] [facility] Subjective: * Chief Complaints: * 1 . *General care. * Medical History: Objective: * Vitals: Assessment: Plan: * Treatment: * Billing Information: * Visit Code: * Procedure Codes: * Electronic signature of FLOYD JEREZ DPM on 01/12/2025 at 08:59 PM CDT Sign off status: Pending * Provider: Silvia JEREZ Date: 1 10/09/2022 Generated for Printi ng/Faxing/eTransmitting on: 0 01/12/2025 08:59 PM CDT
--- OUTSIDE RECORDS SUMMARY | 2025-01-12 20:59 | XMS_ITS | Clinical Summary ---
Author Organization [facility] Address [address] [place] [address] Care Team Providers Care Mold Dumper Name Role Phone Beth Peterson MODEL ENGINE MECHANIC Unavailable Allergies No known active allergies Medications [...] osmolar coma (NKHHC) ([facility]) Per sliding scale 0-149 = [...] hyperosmolarity without nonketotic hyperglycemic-hyper osmolar coma (NKHHC) ([facility]) Take 1 tablet (500 mg [...] with hyperosmolarity without nonketotic hyperglycemic-hyperosmolar coma (NKHHC) ([facility]) 08/17/2021 Personal history of noncompl [...] Dates Next Due Influenza Adult (Generic) 08/15/2021,03/2017,05/29/2016,2014 [employer] ([employer]) COVID-19 AD26 VACCINE 0.5 ML IM SUSP [...] on file Legal Sex Female 2:51 PM CONSULTING HR PROFESSIONAL Gender Identity Not on file Sexual Orientation Not on file Last Filed Vital Signs Vital Sign Reading Time Taken Comments Blood Pressure 122/45 09/13/2021 8:55 AM CONSULTING HR PROFESSIONAL Pulse 76 09/13/2021 8:55 AM CONSULTING HR PROFESSIONAL Temperature 36.7 C (98 F) 09/13/2021 8:55 AM CONSULTING HR PROFESSIONAL Respiratory Rate 20 09/13/2021 8:55 AM CONSULTING HR PROFESSIONAL Oxygen Saturation 97% 09/13/2021 8:55 AM CONSULTING HR PROFESSIONAL Inhaled Oxygen Concentration - - Weight 103 kg (227 lb) 09/13/2021 8:55 AM CONSULTING HR PROFESSIONAL Height 157.5 cm (5' 2 ) 07/15/2021 3:08 PM CONSULTING HR PROFESSIONAL Body Mass Index 41.52 07/15/2021 3:08 PM CONSULTING HR PROFESSIONAL Plan of Treatment Health Maintenance Due Date [...] home safety measures General No Theresa Belle overlock sewing machine operator Procedure Name Priority Date/Time Associated Diagnosis Comments HEMOGLOBIN, GLYCOSYLATED Routine 08/29/2021 8:20 AM CONSULTING HR PROFESSIONAL from Last 3 Months or Most Recently Relevant to Health Maintenance Results * (ABNORMAL) HEMOGLOBIN, GLYCOSYLATED (08/29/2021 8:20 AM CONSULTING HR PROFESSIONAL) HGB A1C 8.3(H) 4.2 - 6.3 % [facility] Comment: Note: Hemoglobinopathies such as HbF, HbS, etc. may give incorrect results with this test. ESTIMATED AVG GLUCOSE 190 mg/dL [facility] Comment: (This value is a calculated estimate of the mean blood glucose over the last 60 days based on the patient's HgbA1c value. 08/29/2021 8:20 AM CONSULTING HR PROFESSIONAL 08/29/2021 8:20 AM CONSULTING HR PROFESSIONAL us Ryan Contreras DO LABORATORY Final Result [facility] [address] [place] [address] from Last 3 Months or Most Recently Relevant to Health Maintenance Advance Directives Documents on File Type Date Recorded Patient Healthcare Consultant Expl anation DNR (Do Not Resuscitate) Documentation 08/22/2021 9:38 AM POLST * DNR (Latest Code Status on File) Date Activated Date Inactivated Comments 08/23/2021 9:40 AM * Full Code Date Activated Date Inactivated Comments 08/17/2021 2:39 PM 08/23/2021 9:40 AM * Full Code Date Activated Date Inactivated Comments 07/16/2021 12:10 AM 07/19/2021 10:01 PM Care Teams Mold Dumper Relationship Specialty Start Date End Date Beth Peterson NP Nurse Practitioner [facility] 08/14/21
--- OUTSIDE RECORDS SUMMARY | 2025-01-12 20:59 | XMS_ITS ---
Author Organization [facility] Address [address] [place], [place] [address] Care Team Providers Care Clam Shucker Name Role Phone MI JEREZ Unavailable [phone] Lasha Mahmood Unavailable Unavailable REASON FOR VISIT *General care Encounters Encounter Location Date Provider Diagnosis [address] [id number] 01/16/2024 MI JEREZ Plan Of Treatment No Information Progress Notes * MADISON GARNERDOB: 4 (79 yo F)Acc No.[id number]:01/16/2024 Patient: Deshaun ESTRADAMADISON Provider: Silvia JEREZ :1945 A ge:78 Y S ex:Female Date:01/16/2024 Address:[address] [place], [place] [phone] Subjective: * Chief Complaints: * 1 . *General care. * Medical History: Objective: * Vitals: Assessment: Plan: * Treatment: * Billing Information: * Visit Code: * Procedure Codes: * Electronic signature of FLOYD JEREZ DPM on 01/12/2025 at 08:59 PM CDT Sign off status: Pending * Provider: Silvia JEREZ Date: 01/16/2024 Generated for Vanessai ng/Fapriceg/eTransmitting on: 01/12/2025 08:59 PM CDT
--- OUTSIDE RECORDS SUMMARY | 2025-01-12 21:00 | XMS_ITS ---
Author Organization [facility] Address [address] [place], [place] [address] Care Team Providers Care Nurse Wound Name Role Phone MERI MI Unavailable [phone] Lasha Mahmood Unavailable Unavailable Allergies Allergen (clinical [...] 11/14/2023 Encounters Encounter Location Date Provider Diagnosis [place] [place], [place] [phone] 11/14/2023 MI JEREZ Other hammer toe(s) (acquired), right foot M20.41 ; Tinea unguium B35.1 ; Other hammer toe(s) (acquired), left foot M20.42 ; Pain in right toe(s) M79.674 ; Pain in left toe(s) M79.675 ; Unspecified atherosclerosis of upper skagit arteries of extremities, bilateral legs I70.203 and [...] (ICD-10 - M79.675) 11/14/2023 Unspecified atherosclerosis of upper skagit arteries of extremities, bilateral legs (ICD-10 - [...] OTC and prescription treatments. Unspecified atherosclerosis of upper skagit arteries of extremities, bilateral legs Patient educated [...] * TJ GARNERVIKADOB: 4 (78 yo F)Acc No.[id number]:11/14/2023 Patient: MADISON BENEDICT Provider: Silvia JEREZ :1945 A ge:78 Y S ex:Female Date:11/14/2023 Address:[address] [place], [place] [id number] Subjective: * Chief Complaints: * 1 . *General care. * HPI: H PI: General care P atient presents to the office for diabetic foot [...] Patient denies c hest pain, history of [place], irregular heartbeat. M usculoskeletal: Patient denies a rthritis, joint stiffness. P atient complains of h ammertoes. P eripheral Vascular: Patient denies b lanching of skin, cold extremities, decreased sensation in extremities. S kin: Patient complains of f ungal nails, nail changes. N eurologic: Patient denies d izziness, gait [...] M79.675 6 . U nspecified atherosclerosis of upper skagit arteries of extremities, bilateral legs - I70.203 [...] were emphasized. 3. U nspecified atherosclerosis of upper skagit arteries of extremities, bilateral legs Notes: Patient educated on risks and aggravating factors of PVD, including conservative treatment options such as a diet and exercise regimen to aid in slowing progression of vascular disease 4. T ype 2 diabetes mellitus with [...] Information: * Visit Code: * Procedure Codes: 47112 DEBRIDE NAIL, 6 OR MORE. Modifiers: Q8 * Sign off status: Completed true * Provider: Silvia JEREZ Date: 0 11/14/2023 Generated for Nancy bruno/Ehsan/Regine on: 0 01/12/2025 08:59 PM CDT History and Physical Notes * [...]
[2025-01-12 21:33] LABS: Add Urine Microscopic? YES; Bilirubin Urine Negative (Negative); Blood Urine Trace-intact (Negative); Glucose Urine UA 3+ (Negative); Ketones Urine Negative (Negative); Leukocyte Esterase Ur 1+ LEU/UL (Negative); Nitrate Urine Positive (Negative); Protein Urine Negative (Negative); Urobilinogen Urine 0.2 mg/dL (0.2-1.0); pH Urine 5.5 (5.0-8.0)
[2025-01-12 21:41] LABS: Appearance Urine Cloudy (Clear); Color Urine Light Yellow (Yellow); RBC Urine 0-2 /hpf (0-2)
[2025-01-12 21:42] LABS: Bacteria Urine 4+ /hpf; Squamous Epithelial Cell Urine None Seen /hpf (Few); WBC Clumps Urine Present /hpf; WBC Urine >100 /hpf (0-3)
== END 2025-01-12 20:54 | disposition home or self-care (01) ==
LOC: CHSLAB 20:57
PROVIDERS: PCP Family Medicine; Visit Provider Family Medicine
DX: R30.0 Dysuria (principal)
CPT/HCPCS: 81001; 87077; 87086; 87088; 87186

== ENCOUNTER 2025-01-14 15:13 | Outpatient (CLI) | payer MEDICARE, SELFPAY ==
--- OUTSIDE RECORDS SUMMARY | 2025-01-14 15:18 | XMS_ITS ---
Author Organization [facility] Address [address] [place], [place] [address] Care Team Providers Care Precision Inspector Name Role Phone MI JEREZ Unavailable [phone] Lasha Mahmood Unavailable Unavailable REASON FOR VISIT *General care Encounters Encounter Location Date Provider Diagnosis [address] [phone] 01/16/2024 MI JEREZ Plan Of Treatment No Information Progress Notes * MADISON GARNERDOB: 4 (79 yo F)Acc No.[id number]:01/16/2024 Patient: Deshaun ESTRADAMADISON Provider: Silvia JEREZ :1945 A ge:78 Y S ex:Female Date:01/16/2024 Address:[address] [place], [place] [phone] Subjective: * Chief Complaints: * 1 . *General care. * Medical History: Objective: * Vitals: Assessment: Plan: * Treatment: * Billing Information: * Visit Code: * Procedure Codes: * Electronic signature of FLOYD JEREZ DPM on 01/14/2025 at 03:18 PM CDT Sign off status: Pending * Provider: Silvia JEREZ Date: 01/16/2024 Generated for Vanessai ng/Fapriceg/eTransmitting on: 01/14/2025 03:18 PM CDT
--- OUTSIDE RECORDS SUMMARY | 2025-01-14 15:18 | XMS_ITS | Clinical Summary ---
Author Organization [facility] Address [address] [place] [address] Care Team Providers Care Manager Custom Name Role Phone Beth Peterson TOOL AND DIE INSPECTOR Unavailable Allergies No known active allergies Medications [...] hyperosmolarity without nonketotic hyperglycemic-hyper osmolar coma (NKHHC) ([facility]) Per sliding scale 0-149 = 0 [...] hyperosmolarity without nonketotic hyperglycemic-hyper osmolar coma (NKHHC) ([facility]) Take 1 tablet (500 mg total) [...] with hyperosmolarity without nonketotic hyperglycemic-hyperosmolar coma (NKHHC) ([facility]) 08/17/2021 Personal history of noncompl iance [...] Dates Next Due Influenza Adult (Generic) 08/15/2021,03/2017,05/29/2016,2014 [employer] ([employer]) COVID-19 AD26 VACCINE 0.5 ML IM SUSP [...] on file Legal Sex Female 2:51 PM ELECTRICAL PROSPECTING ENGINEER Gender Identity Not on file Sexual Orientation Not on file Last Filed Vital Signs Vital Sign Reading Time Taken Comments Blood Pressure 122/45 09/13/2021 8:55 AM ELECTRICAL PROSPECTING ENGINEER Pulse 76 09/13/2021 8:55 AM ELECTRICAL PROSPECTING ENGINEER Temperature 36.7 C (98 F) 09/13/2021 8:55 AM ELECTRICAL PROSPECTING ENGINEER Respiratory Rate 20 09/13/2021 8:55 AM ELECTRICAL PROSPECTING ENGINEER Oxygen Saturation 97% 09/13/2021 8:55 AM ELECTRICAL PROSPECTING ENGINEER Inhaled Oxygen Concentration - - Weight 103 kg (227 lb) 09/13/2021 8:55 AM ELECTRICAL PROSPECTING ENGINEER Height 157.5 cm (5' 2 ) 07/15/2021 3:08 PM ELECTRICAL PROSPECTING ENGINEER Body Mass Index 41.52 07/15/2021 3:08 PM ELECTRICAL PROSPECTING ENGINEER Plan of Treatment Health Maintenance Due Date [...] home safety measures General No Theresa Belle designer writer Procedure Name Priority Date/Time Associated Diagnosis Comments HEMOGLOBIN, GLYCOSYLATED Routine 08/29/2021 8:20 AM ELECTRICAL PROSPECTING ENGINEER from Last 3 Months or Most Recently Relevant to Health Maintenance Results * (ABNORMAL) HEMOGLOBIN, GLYCOSYLATED (08/29/2021 8:20 AM ELECTRICAL PROSPECTING ENGINEER) HGB A1C 8.3(H) 4.2 - 6.3 % [facility] Comment: Note: Hemoglobinopathies such as HbF, HbS, etc. may give incorrect results with this test. ESTIMATED AVG GLUCOSE 190 mg/dL [facility] Comment: (This value is a calculated estimate of the mean blood glucose over the last 60 days based on the patient's HgbA1c value. 08/29/2021 8:20 AM ELECTRICAL PROSPECTING ENGINEER 08/29/2021 8:20 AM ELECTRICAL PROSPECTING ENGINEER us Ryan Contreras DO LABORATORY Final Result [facility] [address] [place] [address] from Last 3 Months or Most Recently Relevant to Health Maintenance Advance Directives Documents on File Type Date Recorded Patient Body Welder Expl anation DNR (Do Not Resuscitate) Documentation 08/22/2021 9:38 AM POLST * DNR (Latest Code Status on File) Date Activated Date Inactivated Comments 08/23/2021 9:40 AM * Full Code Date Activated Date Inactivated Comments 08/17/2021 2:39 PM 08/23/2021 9:40 AM * Full Code Date Activated Date Inactivated Comments 07/16/2021 12:10 AM 07/19/2021 10:01 PM Care Teams Manager Custom Relationship Specialty Start Date End Date Beth Peterson NP Nurse Practitioner [facility] 08/14/21
--- OUTSIDE RECORDS SUMMARY | 2025-01-14 15:18 | XMS_ITS | Patient Health Record ---
Author Organization [facility] Address [address] [place], [place] [address] Care Team Providers Care Retail Field Supervisor Name Role Phone MI JEREZ Unavailable [phone] Lasha Mahmood Unavailable Unavailable Allergies Allergen (clinical [...] Medicare Part B [place] [address] [place] [address] [id number] MADISON GARNER Self - patient is the insured [facility] ([facility]) ATTN CLAIMS [address] [place] [address] [id number] MADISON GARNER Self - patient is the insured Medical (General) History Medical History History ICD Code kidney stones neuropathy Arthritis Bladder infections Diabetic Blood clots
--- OUTSIDE RECORDS SUMMARY | 2025-01-14 15:18 | XMS_ITS ---
Author Organization [facility] Address [address] [place], [place] [address] Care Team Providers Care Six Pack Packer Name Role Phone MI JEREZ Unavailable [phone] Lasha Mahmood Unavailable Unavailable REASON FOR VISIT *General care Encounters Encounter Location Date Provider Diagnosis [address] [place], [place] [phone] 08/08/2023 MI JEREZ Plan Of Treatment No Information Progress Notes * MADISON GARNERDOB: 4 (79 yo F)Acc No.[id number]:08/08/2023 Patient: MADISON BENEDICT Provider: Silvia JEREZ :1945 A ge:77 Y S ex:Female Date:08/08/2023 Address[address] [facility] Subjective: * Chief Complaints: * 1 . *General care. * Medical History: Objective: * Vitals: Assessment: Plan: * Treatment: * Billing Information: * Visit Code: * Procedure Codes: * Electronic signature of FLOYD JEREZ DPM on 01/14/2025 at 03:18 PM CDT Sign off status: Pending * Provider: Silvia JEREZ Date: 1 10/09/2022 Generated for Printi ng/Faxing/eTransmitting on: 0 01/14/2025 03:18 PM CDT
[2025-01-14 15:59] LABS: INR 1.5; Prothrombin Time 15.9 Seconds (9.50-12.1)
== END 2025-01-14 15:14 | disposition home or self-care (01) ==
PROVIDERS: PCP Family Medicine; Visit Provider Family Medicine
DX: Z79.01 Long term (current) use of anticoagulants (principal)
CPT/HCPCS: 36415; 85610

== ENCOUNTER 2025-01-19 11:08 | Outpatient (CLI) | payer MEDICARE, SELFPAY ==
--- OUTSIDE RECORDS SUMMARY | 2025-01-19 11:16 | XMS_ITS | Patient Health Record ---
Author Organization [facility] Address [address] [place], [place] [address] Care Team Providers Care Pipefitter Helper Name Role Phone MI JEREZ Unavailable [phone] Lasha Mahmood Unavailable Unavailable Allergies Allergen (clinical [...] Date Coverage End Date Medicare Part B [place] [address] [place] [address] [id number] MADISON GARNER Self - patient is the insured [facility] ([facility]) ATTN CLAIMS [address] [place] [address] [id number] MADISON GARNER Self - patient is the insured Medical (General) History Medical History History ICD Code kidney stones neuropathy Arthritis Bladder infections Diabetic Blood clots
--- OUTSIDE RECORDS SUMMARY | 2025-01-19 11:16 | XMS_ITS ---
Author Organization [facility] Address [address] [place], [place] [address] Care Team Providers Care Complaint Specialist Name Role Phone MI JEREZ Unavailable [phone] Lasha Mahmood Unavailable Unavailable REASON FOR VISIT *General care Encounters Encounter Location Date Provider Diagnosis [address] [place], [place] [address] 08/08/2023 MI JEREZ Plan Of Treatment No Information Progress Notes * MADISON GARNERDOB: 4 (79 yo F)Acc No.[id number]:08/08/2023 Patient: MADISON BENEDICT Provider: Silvia JEREZ :1945 A ge:77 Y S ex:Female Date:08/08/2023 Address:[address] [facility] Subjective: * Chief Complaints: * 1 . *General care. * Medical History: Objective: * Vitals: Assessment: Plan: * Treatment: * Billing Information: * Visit Code: * Procedure Codes: * Electronic signature of FLOYD JEREZ DPM on 01/19/2025 at 11:16 AM CDT Sign off status: Pending * Provider: Silvia JEREZ Date: 1 10/09/2022 Generated for Printi ng/Faxing/eTransmitting on: 0 01/19/2025 11:16 AM CDT
--- OUTSIDE RECORDS SUMMARY | 2025-01-19 11:16 | XMS_ITS | Clinical Summary ---
Author Organization [facility] Address [address] [place] [address] Care Team Providers Care Air Tube Releaser Name Role Phone Beth Peterson MANUFACTURING ENGINEER ASSEMBLY Unavailable Allergies No known active allergies Medications [...] hyperosmolarity without nonketotic hyperglycemic-hyper osmolar coma (N[facility]) ([facility]) Per sliding scale 0-149 = [...] hyperosmolarity without nonketotic hyperglycemic-hyper osmolar coma (NKHHC) ([facility]) Take 1 tablet (500 mg [...] with hyperosmolarity without nonketotic hyperglycemic-hyperosmolar coma (NKHHC) ([facility]) 08/17/2021 Personal history of noncompl [...] Dates Next Due Influenza Adult (Generic) 08/15/2021,03/2017,05/29/2016,2014 [employer]) COVID-19 AD26 VACCINE 0.5 ML IM SUSP [...] on file Legal Sex Female 2:51 PM BOOK TRIMMER Gender Identity Not on file Sexual Orientation Not on file Last Filed Vital Signs Vital Sign Reading Time Taken Comments Blood Pressure 122/45 09/13/2021 8:55 AM BOOK TRIMMER Pulse 76 09/13/2021 8:55 AM BOOK TRIMMER Temperature 36.7 C (98 F) 09/13/2021 8:55 AM BOOK TRIMMER Respiratory Rate 20 09/13/2021 8:55 AM BOOK TRIMMER Oxygen Saturation 97% 09/13/2021 8:55 AM BOOK TRIMMER Inhaled Oxygen Concentration - - Weight 103 kg (227 lb) 09/13/2021 8:55 AM BOOK TRIMMER Height 157.5 cm (5' 2 ) 07/15/2021 3:08 PM BOOK TRIMMER Body Mass Index 41.52 07/15/2021 3:08 PM BOOK TRIMMER Plan of Treatment Health Maintenance Due Date [...] home safety measures General No Theresa Belle hammer driver Procedure Name Priority Date/Time Associated Diagnosis Comments HEMOGLOBIN, GLYCOSYLATED Routine 08/29/2021 8:20 AM BOOK TRIMMER from Last 3 Months or Most Recently Relevant to Health Maintenance Results * (ABNORMAL) HEMOGLOBIN, GLYCOSYLATED (08/29/2021 8:20 AM BOOK TRIMMER) HGB A1C 8.3(H) 4.2 - 6.3 % [facility] Comment: Note: Hemoglobinopathies such as HbF, HbS, etc. may give incorrect results with this test. ESTIMATED AVG GLUCOSE 190 mg/dL [facility] Comment: (This value is a calculated estimate of the mean blood glucose over the last 60 days based on the patient's HgbA1c value. 08/29/2021 8:20 AM BOOK TRIMMER 08/29/2021 8:20 AM BOOK TRIMMER us Ryan Contreras DO LABORATORY Final Result [facility] [address] [place] [address] from Last 3 Months or Most Recently Relevant to Health Maintenance Advance Directives Documents on File Type Date Recorded Patient Pharmacist Intern Expl anation DNR (Do Not Resuscitate) Documentation 08/22/2021 9:38 AM POLST * DNR (Latest Code Status on File) Date Activated Date Inactivated Comments 08/23/2021 9:40 AM * Full Code Date Activated Date Inactivated Comments 08/17/2021 2:39 PM 08/23/2021 9:40 AM * Full Code Date Activated Date Inactivated Comments 07/16/2021 12:10 AM 07/19/2021 10:01 PM Care Teams Air Tube Releaser Relationship Specialty Start Date End Date Beth Peterson NP Nurse Practitioner [facility] 08/14/21
--- OUTSIDE RECORDS SUMMARY | 2025-01-19 11:16 | XMS_ITS ---
Author Organization [facility] Address [address] [place], [place] [id number] Care Team Providers Care Byproducts Extractor Name Role Phone MI JEREZ Unavailable [phone] Lasha Mahmood Unavailable Unavailable REASON FOR VISIT *General care Encounters Encounter Location Date Provider Diagnosis [address] [id number] 01/16/2024 MI JEREZ Plan Of Treatment No Information Progress Notes * MADISON GARNERDOB: 4 (79 yo F)Acc No.[id number]:01/16/2024 Patient: Deshaun ESTRADAMADISON Provider: Silvia JEREZ :1945 A ge:78 Y S ex:Female Date:01/16/2024 Address:[address] [place], [place] [id number] Subjective: * Chief Complaints: * 1 . *General care. * Medical History: Objective: * Vitals: Assessment: Plan: * Treatment: * Billing Information: * Visit Code: * Procedure Codes: * Electronic signature of FLOYD JEREZ DPM on 01/19/2025 at 11:16 AM CDT Sign off status: Pending * Provider: Silvia JEREZ Date: 01/16/2024 Generated for Vanessai ng/Fapriceg/eTransmitting on: 01/19/2025 11:16 AM CDT
[2025-01-19 11:51] LABS: INR 1.2; Prothrombin Time 12.9 Seconds (9.50-12.1)
== END 2025-01-19 11:09 | disposition home or self-care (01) ==
PROVIDERS: PCP Family Medicine; Visit Provider Family Medicine
DX: Z79.01 Long term (current) use of anticoagulants (principal)
CPT/HCPCS: 36415; 85610

== ENCOUNTER 2025-02-03 07:40 | Outpatient (NON) | payer MEDICARE, SELFPAY ==
--- OUTSIDE RECORDS SUMMARY | 2025-02-03 07:44 | XMS_ITS ---
Author Organization [facility] Address [address] [place], [place] [id number] Care Team Providers Care Tool Trouble Shooter Name Role Phone MI JEREZ Unavailable [phone] Lasha Mahmood Unavailable Unavailable REASON FOR VISIT *General care Encounters Encounter Location Date Provider Diagnosis [place] [place], [place] [phone] 08/08/2023 MI JEREZ Plan Of Treatment No Information Progress Notes * MADISON GARNERDOB: 4 (79 yo F)Acc No.[id number]:08/08/2023 Patient: MADISON BENEDICT Provider: Silvia JEREZ :1945 A ge:77 Y S ex:Female Date:08/08/2023 Address[address] [facility] Subjective: * Chief Complaints: * 1 . *General care. * Medical History: Objective: * Vitals: Assessment: Plan: * Treatment: * Billing Information: * Visit Code: * Procedure Codes: * Electronic signature of FLOYD JEREZ DPM on 02/03/2025 at 07:44 AM CDT Sign off status: Pending * Provider: Silvia JEREZ Date: 1 10/09/2022 Generated for Vanessai ng/Fapriceg/eTransmitting on: 0 02/03/2025 07:44 AM CDT
--- OUTSIDE RECORDS SUMMARY | 2025-02-03 07:44 | XMS_ITS ---
Author Organization [facility] Address [address] [place], [place] [id number] Care Team Providers Care Senior Erp Consultant Name Role Phone MI JEREZ Unavailable [phone] Lasha Mahmood Unavailable Unavailable REASON FOR VISIT *General care Encounters Encounter Location Date Provider Diagnosis [address] [id number] 01/16/2024 MI JEREZ Plan Of Treatment No Information Progress Notes * MADISON GARNERDOB: [birth year] (79 yo F)Acc No.[id number]:01/16/2024 Patient: Deshaun ESTRADAMADISON Provider: Silvia JEREZ :1945 A ge:78 Y S ex:Female Date:01/16/2024 Address:[address] [place], [place] [id number] Subjective: * Chief Complaints: * 1 . *General care. * Medical History: Objective: * Vitals: Assessment: Plan: * Treatment: * Billing Information: * Visit Code: * Procedure Codes: * Electronic signature of FLOYD JEREZ DPM on 02/03/2025 at 07:44 AM CDT Sign off status: Pending * Provider: Silvia JEREZ Date: 0 01/16/2024 Generated for Vanessai ng/Faluis/eTransmitting on: 02/03/2025 07:44 AM CDT
--- OUTSIDE RECORDS SUMMARY | 2025-02-03 07:45 | XMS_ITS | Patient Health Record ---
Author Organization [facility] Address [address] [place], [place] [phone] Care Team Providers Care Coil Assembler Name Role Phone MI JEREZ Unavailable [phone] Lasha Mahmood Unavailable Unavailable Allergies Allergen (clinical [...] B [place] [address] [place] [address] [id number] MADISON GARNER Self - patient is the insured [facility] ([facility]) ATTN CLAIMS [address] [place] [address] [id number] MADISON GARNER Self - patient is the insured Medical (General) History Medical History History ICD Code kidney stones neuropathy Arthritis Bladder infections Diabetic Blood clots
[2025-02-03 08:15] LABS: Add Urine Microscopic? NO; Appearance Urine Clear (Clear); Bilirubin Urine Negative (Negative); Blood Urine Negative (Negative); Glucose Urine UA 3+ (Negative); Ketones Urine Negative (Negative); Leukocyte Esterase Ur Negative (Negative); Nitrate Urine Negative (Negative); Protein Urine Negative (Negative); Urobilinogen Urine 0.2 mg/dL (0.2-1.0)
[2025-02-03 08:16] LABS: Color Urine Yellow (Yellow)
[2025-02-03 10:46] LABS: Basophils Absolute Auto 0.05 K/mm3 (0.00-0.10); Basophils Percent Auto 0.6 % (0.0-1.0); Eosinophils Absolute Auto 0.46 K/mm3 (0.02-0.50); Eosinophils Percent Auto 5.3 % (1.0-6.0); Hematocrit 35.5 % (35.0-42.0); Hemoglobin 10.8 g/dL (11.7-13.8); Immature Granulocyte Absolute 0.04 K/mm3 (0.00-0.00); Immature Granulocyte Percent A 0.5 % (0.0-0.0); Lymphocytes Absolute Auto 1.81 K/mm3 (1.10-4.50); Lymphocytes Percent Auto 20.9 % (18.0-42.0); Mean Corpuscular HGB Conc 30.4 g/dL (32-36); Mean Corpuscular Hemoglobin 30.2 pg (27.0-31.0); Mean Corpuscular Volume 99.2 fL (78.0-102.0); Mean Platelet Volume 11.1 fl (9.2-11.8); Monocytes Percent Auto 6.9 % (2.0-11.0); Neutrophils Absolute Auto 5.72 K/mm3 (1.70-7.20); Neutrophils Percent Auto 65.8 % (50.0-70.0); Platelet Count Result 299 K/mm3 (150-420); Red Blood Count 3.58 M/mm3 (4.20-5.40); White Blood Count 8.7 K/mm3 (4.8-10.8)
[2025-02-03 10:54] LABS: Hemoglobin A1C 6.9 % (<5.7)
[2025-02-03 11:05] LABS: INR 4.5; Prothrombin Time 42.9 Seconds (9.50-12.1)
[2025-02-03 11:07] LABS: Anion Gap 6 mmol/L (4-12); Blood Urea Nitrogen 16 mg/dL (7-17); Calcium 8.7 mg/dL (8.4-10.2); Carbon Dioxide 28 mmol/L (22-30); Chloride 108 mmol/L (98-107); Estimated Glomerular Filt Rate 48; Glucose 175 mg/dL (65-110); Osmolality Calculated 299 mOsm/kg (285-295); Potassium 3.8 mmol/L (3.4-5.0); Sodium 142 mmol/L (137-145)
== END 2025-02-03 07:41 | disposition home or self-care (01) ==
LOC: CHSLAB 07:42
PROVIDERS: PCP Family Medicine; Visit Provider Family Medicine
DX: J81.1 Chronic pulmonary edema (principal); E11.42 Type 2 diabetes mellitus with diabetic polyneuropathy; I49.9 Cardiac arrhythmia, unspecified; M06.9 Rheumatoid arthritis, unspecified; N39.0 Urinary tract infection, site not specified
CPT/HCPCS: 36415; 80048; 81003; 83036; 85025; 85610; 87077; 87086; 87088; 87186

== ENCOUNTER 2025-02-06 11:17 | Outpatient (CLI) | payer MEDICARE, SELFPAY ==
--- OUTSIDE RECORDS SUMMARY | 2025-02-06 11:20 | XMS_ITS ---
Author Organization [facility] Address [address] [place], [place] [phone] Care Team Providers Care Automatic Splicing Machine Operator Name Role Phone MI JEREZ Unavailable [phone] Lasha Mahmood Unavailable Unavailable REASON FOR VISIT *General care Encounters Encounter Location Date Provider Diagnosis [address] [id number] 01/16/2024 MI JEREZ Plan Of Treatment No Information Progress Notes * MADISON GARNERDOB: [birth year] (79 yo F)Acc No.[id number]:01/16/2024 Patient: Deshaun ESTRADAMADISON Provider: Silvia JEREZ :1945 A ge:78 Y S ex:Female Date:01/16/2024 Address:[address] [place], [place] [id number] Subjective: * Chief Complaints: * 1 . *General care. * Medical History: Objective: * Vitals: Assessment: Plan: * Treatment: * Billing Information: * Visit Code: * Procedure Codes: * Electronic signature of FLOYD JEREZ DPM on 02/06/2025 at 11:20 AM CDT Sign off status: Pending * Provider: Silvia JEREZ Date: 0 01/16/2024 Generated for Vanessai ng/Fapriceg/eTransmitting on: 0 02/06/2025 11:20 AM CDT
--- OUTSIDE RECORDS SUMMARY | 2025-02-06 11:21 | XMS_ITS | Patient Health Record ---
Author Organization [facility] Address [address] [place], [place] [phone] Care Team Providers Care Department Director Name Role Phone MI JEREZ Unavailable [phone] Lasha Mahmood Unavailable Unavailable Allergies Allergen (clinical [...] Part B [place] [address] [place] [address] [id number] MADISON GARNER Self - patient is the insured [facility] ([facility]) ATTN CLAIMS [address] [place] [address] [id number] MADISON GANRER Self - patient is the insured Medical (General) History Medical History History ICD Code kidney stones neuropathy Arthritis Bladder infections Diabetic Blood clots
--- OUTSIDE RECORDS SUMMARY | 2025-02-06 11:21 | XMS_ITS ---
Author Organization [facility] Address [address] [place], [place] [phone] Care Team Providers Care Casing Fluid Tender Name Role Phone MI JEREZ Unavailable [phone] Lasha Mahmood Unavailable Unavailable REASON FOR VISIT *General care Encounters Encounter Location Date Provider Diagnosis [place] [address] [place], [place] [phone] 08/08/2023 MI JEREZ Plan Of Treatment No Information Progress Notes * MADISON GARNERDOB: 4 (79 yo F)Acc No.[id number]:08/08/2023 Patient: MADISON BENEDICT Provider: Silvia JEREZ :1945 A ge:77 Y S ex:Female Date:08/08/2023 Address:[address] [facility] Subjective: * Chief Complaints: * 1 . *General care. * Medical History: Objective: * Vitals: Assessment: Plan: * Treatment: * Billing Information: * Visit Code: * Procedure Codes: * Electronic signature of FLOYD JEREZ DPM on 02/06/2025 at 11:20 AM CDT Sign off status: Pending * Provider: Silvia JEREZ Date: 1 10/09/2022 Generated for Vanessai ng/Fapriceg/eTransmitting on: 02/06/2025 11:20 AM CDT
[2025-02-06 11:57] LABS: Prothrombin Time 29.5 Seconds (9.50-12.1)
== END 2025-02-06 11:18 | disposition home or self-care (01) ==
LOC: CHSLAB 11:18
PROVIDERS: PCP Family Medicine; Visit Provider Family Medicine
DX: I49.9 Cardiac arrhythmia, unspecified (principal); Z79.01 Long term (current) use of anticoagulants
CPT/HCPCS: 36415; 85610

== ENCOUNTER 2025-02-08 08:28 | Emergency (ER) | payer MEDICARE, SELFPAY ==
[2025-02-08] VITALS (22 sets, daily range): BP systolic 158–192; BP diastolic 72–97; PULSE 88–108; RESP 17–26; TEMP 37.4; O2SAT 85–96
--- NOTE | ~2025-02-08 | XR_ITS ---
Portable chest x-ray Comparison: Shortness of breath Clinical History: 11/13/2024 Findings: There is hazy/patchy bibasilar airspace disease. Minimal pleural effusions. Cardiomediast inal silhouette is stable. Bones and soft tissues are unremarkable. Impression: Minimal pleural effusions with mild bibasilar pulmonary edema/atelectasis. Stable cardiomegaly. Reviewed, dictated and finalized at location . Impression: Minimal pleural effusions with mild bibasilar pulmonary edema/atelectasis. Stable cardiomegaly.
--- NOTE | 2025-02-08 08:33 | ECG_ITS ---
Test Date: 2025-02-08 08:43:46 Measurements Intervals [place] Rate: 100 P: 0 MI: 0 QRS: -57 QRSD: 154 T: 36 QT: 378 QTc: 488 Interpretive Statements ATRIAL FLUTTER/TACHYCARDIA WITH RAPID VENTRICULAR RESPONSE RIGHT BUNDLE BRANCH BLOCK LEFT ANTERIOR FASCICULAR BLOCK BASELINE WANDER- AVR, AVL, AVF ABNORMAL ECG Compared to ECG 11/13/2024 17:07:52 HEART RATE HAS INCREASED Electronically Signed On 02-08-2025 09:27:52 CDT by Jason Isbell D.O.
--- NOTE | 2025-02-08 08:38 | ED_ITS ---
HPI - SOB/Dyspnea General Chief Complaint: Shortness of Breath/Dyspnea Stated Complaint: shortness of breath Time Seen by Provider: 02/08/25 08:33 Source: patient Mode of arrival: EMS Limitations: no limitations History of Present Illness HPI Narrative: 79 year old female [facility] of shortness of breath. Patient states started 3 days ago. Denies chest pain. States has some cough with green phlegm production. Denies fever, nausea, vomiting, diarrhea. MD elicited complaint: shortness of breath and cough Onset (ago): day(s) (3) Exacerbating factors: nothing Relieving factors: nothing Associated symptoms: cough and sputum production Related Data Home Medications ?Medication ?Instructions ?Recorded ?Confirmed ?Last Taken ?Type pantoprazole 40 mg tablet,delayed 40 mg PO DAILY 09/18/24 11/14/24 11/13/24 History release acetaminophen 500 mg tablet 500 mg PO Q6H PRN fever or pain 10/21/24 11/14/24 Unknown History (Acetaminophen Extra Strength) atorvastatin 20 mg tablet 20 mg PO HS 10/21/24 11/14/24 11/12/24 History polyethylene glycol 3350 17 gram 17 g PO DAILY PRN constipation 10/21/24 11/14/24 Unknown History oral powder packet (Miralax) sennosides 8.6 mg tablet (Senna 8.6 mg PO Q12H PRN constipation 10/21/24 11/14/24 Unknown History Lax) vynfyiha-fxmydzswr-zdueaunklmm 10 ml PO Q4-5H PRN heartburn 11/14/24 11/14/24 Unknown History cefdinir 300 mg capsule 300 mg PO Q12H 02/08/25 02/07/25 History dapagliflozin propanediol 5 mg 5 mg PO DAILY 02/08/25 02/06/25 History tablet (Farxiga) docusate sodium 100 mg tablet 100 mg PO DAILY 02/08/25 02/07/25 History melatonin 5 mg tablet 5 mg PO HS 02/08/25 02/07/25 History warfarin 5 mg tablet mg 02/08/25 Unknown History Allergies Allergy/AdvReac Type Severity Reaction Status Date / Time Iodinated Contrast Media Allergy Intermediate Rash Verified 02/08/25 08:49 Review of Systems 2 Review of Systems: All systems reviewed & are unremarkable except as noted in HPI and below Constitutional: Constitutional: Reports as per HPI, Reports no additional constitutional complaints, Denies chills and Denies fever(s) Eyes: Eyes: Reports as per HPI and Reports no additional eye complaints ENT: Reports system reviewed and no additional complaints, except as documented Cardiovascular: Cardiovascular: Reports as per HPI, Reports no additional cardiovascular complaints and Denies chest pain Respiratory: Respiratory: Reports as per HPI, Reports no additional respiratory complaints, Reports cough and Reports dyspnea Gastrointestinal: Gastrointestinal: Reports as per HPI, Reports no additional gastrointestinal complaints, Denies abdominal pain, Denies constipation, Denies diarrhea, Denies nausea and Denies vomiting Genitourinary: Genitourinary: Reports no additional female genitourinary complaints and Reports as per HPI Musculoskeletal: Musculoskeletal: Reports no additional musculoskeletal complaints Integumentary/Breasts: Skin/Breast: Reports system reviewed and no additional complaints, except as docu Neurologic: Reports system reviewed and no additional complaints, except as documented Endocrine: Endocrine: Reports no additional endocrine complaints Hematologic/Lymphatic: Hematologic/Lymphatic: Reports no additional hematologic/lymphatic complaints Allergic/Immunologic: Allergic/Immunologic: Reports no additional allergic/immunologic complaints [facility] Past Medical History Medical History Diabetic polyneuropathy Type 2 diabetes mellitus Morbid obesity with BMI of 45.0-49.9, adult Chronic kidney disease, stage 3a Diastolic heart failure GERD without esophagitis H/O TIA (transient ischemic attack) and stroke H/O deep venous thrombosis Hyperlipidemia Essential (primary) hypertension Surgical History Surgical History History of hysterectomy S/P cholecystectomy Family History Family History Mother Family history of migraine headaches Family history of arthritis Family history of Alzheimer's disease Father Family history of cataracts Family history of diabetes mellitus in first degree relative Family history of congestive heart failure Family history of heart disease in male family member before age 55 Family history of hearing loss Sibling Family history of diabetes mellitus in first degree relative Other Diabetes mellitus Social History Social History Social History: She is (for over 50 years) and lives by herself in a small home on her son's property however after her hospitalization September 28, 2024 she was discharged to acute rehab. She has 2 sons 1 of which is living in a [place] [facility] [place] due to blindness an intellectual disability associated with extreme prematurity. She has a daughter who is chronically ill and has had a prior cardiac arrest but is still living. Then her youngest son planned is relatively healthy and only the property she lives on. She used to smoke about a quarter pack of cigarettes per day for about 20 years but quit when she was in her 40s. She used to drink an alcoholic beverage every couple of weeks but has not done so in many years. She denies history of illicit substance use. Code status: DNR/DNI (per patient request) Surrogate decision maker: Dmitry (son) Smoking status: Former smoker Tobacco type: cigarettes Second hand tobacco smoke exposure: No Smoking end date: 09/02/82 Additional smoking assessment comments: patient smoked in her 30's Alcohol intake: never Substance use: never Substance use type: does not use Do You Feel Safe in your Home?: Yes Lack of Transportation: No Lack of Food: Never True Current Housing: I Have Housing Concerned About Future Housing: No Difficulty Paying Gas/Electric Bills: No Difficulty Paying for Meds: No Currently Unemployed: No Education: High School Diploma/GED Difficulty w/ Childcare or Family Care: No Living arrangements: alone Occupation/Education: retired Additional occupation/education comments: [employer] Gender identity (if verbalized by the patient): Female Sexual Orientation (if Verbalized by the Patient): Straight or Heterosexual Spiritual care concerns: No Agree to blood products: Yes Exam 2 Const: General: alert Nutritional Appearance: obese O rientation/consciousness: patient oriented x3 Limitations: no limitations HENMT: Head: normal to inspection Ears: external ears normal F arik/Nose/Sinus: Normal external nose present Face and sinus: normal facial exam Mouth: Yes Normal oral and palatal mucosa present Throat: posterior oropharynx normal Eyes: Conjunctivae: conjunctivae normal Pupils: Equal, round and reactive pupils present EOM: EOMs intact bilaterally Direct Ophthalmoscopy: no photophobia Neck: Neck: normal visual inspection Chest: Chest palpation & inspection: normal inspection of the chest Resp: Effort & Inspection: tachypneic (mild) Auscultation: diminished lung sounds Cardio: Rate: tachycardic Rhythm: abnormal rhythm GI: GI Palp: Yes Soft to palpation and No Tenderness to palpation present (GI) Other: obese Back/Spine/Pelvis: Back: no CVA tenderness Skin: General skin exam: normal color Other: chronic erythema to lower legs Neuro: General: patient oriented x3 Cranial nerves: Yes Nystagmus not present Speech: normal speech Extrem: General: edema Other: chronic leg edema Course Course Emergency Course: 79 y/o female arrives to the Emergency Department via EMS from [place] for evaluation of shortess of breath. Patient states she has SOB for 3 days. Cough productive green phlegm. No chest pain. No known fever, nausea, vomiting, diarrhea. PE: obese, mild tachypnea /tachycardia, decreased breath sounds, chronic edema /erythema lower legs CBC: H/H 10.7/34.5, Plt 252; wbc 8.9 with 75 S;, 13 L, 10 M CMP: Na 138, K 3.8, Cl 100, CO2 24, Glc 203, BUN 13, Cr 0.96; LFT's normal TNI: 0.027 EKG: Afib, 100, LAD, RBBB, NSST AB.42/ 98/ 34/ 22, 97% ra D-dimer: 0.22 BNP: 3720 Lactic: 0.9 M.4 TSH: 0.991 INR: 1.8 /19.1 PCXR: min pleural effusion with mild bibasilar pulmonary edema /atelectasis Tx: classroom monitor, pulse ox, saline lock, O2. Lasix 20 mg IVP, MagOxide 400 mg po *reviewed and discussed results with patient. Discussed further management. Patient voices understanding and agreement. Rx and Instructions Vital Signs Vital signs: Vital Signs Temperature 37.4 C 02/08/25 08:28 Pulse Rate 105 H 02/08/25 08:28 Respiratory Rate 26 H 02/08/25 08:28 Blood Pressure 192/84 H 02/08/25 08:28 Pulse Oximetry 87 L 02/08/25 08:28 Oxygen Delivery Room Air 02/08/25 08:28 Temperature 37.4 C 02/08/25 08:28 Pulse Rate 98 02/08/25 10:32 Respiratory Rate 20 02/08/25 10:32 Blood Pressure 158/95 H 02/08/25 10:32 Pulse Oximetry 94 02/08/25 10:35 Oxygen Delivery Nasal Cannula 02/08/25 10:35 Oxygen Flow Rate 2 02/08/25 10:35 MDM - SOB/Dyspnea Lab Data 02/08/25 09:07 02/08/25 09:07 Labs: Lab Results 02/08/25 02/08/25 Range/Units 09:07 09:09 WBC 8.9 (4.8-10.8) K/mm3 RBC 3.54 L (4.20-5.40) M/mm3 Hgb 10.7 L (11.7-13.8) g/dL Hct 34.5 L (35.0-42.0) % MCV 97.5 (78.0-102.0) fL MCH 30.2 (27.0-31.0) pg MCHC 31.0 L (32-36) g/dL RDW 14.2 (11.6-14.4) % Plt Count 252 (150-420) K/mm3 MPV 10.5 (9.2-11.8) fl Immature Gran % (Auto) 0.7 H (0.0-0.0) % Neut % (Auto) 75.4 H (50.0-70.0) % Lymph % (Auto) 12.8 L (18.0-42.0) % Amelia % (Auto) 9.6 (2.0-11.0) % Eos % (Auto) 0.7 L (1.0-6.0) % Baso % (Auto) 0.8 (0.0-1.0) % Lymph # (Auto) 1.14 (1.10-4.50) K/mm3 Amelia # (Auto) 0.86 (0.10-0.90) K/mm3 Eos # (Auto) 0.06 (0.02-0.50) K/mm3 Baso # (Auto) 0.07 (0.00-0.10) K/mm3 Abs Immat Gran (auto) 0.06 H (0.00-0.00) K/mm3 Absolute Neuts (auto) 6.73 (1.70-7.20) K/mm3 Absolute Nucleated RBC 0.00 (0.00-0.00) K/mm3 Nucleated RBC % 0.0 (0-0.0) % PT 19.1 H D Cancelled (9.50-12.1) Seconds INR 1.8 Cancelled D-Dimer 0.22 (0.19-0.50) mg/L Methemoglobin 0.2 (0-1.5) % Sodium 138 (137-145) mmol/L Potassium 3.8 (3.4-5.0) mmol/L Chloride 109 H (98-107) mmol/L Carbon Dioxide 24 (22-30) mmol/L Anion Gap 5 (4-12) mmol/L BUN 13 (7-17) mg/dL Creatinine 0.96 (0.7-1.0) mg/dL Estim Creat Clear Calc 50 ml/min Estimated GFR 56 L (59 - ) Glucose 203 H (65-110) mg/dL Calculated Osmolality 292 (285-295) mOsm/kg Lactic Acid 0.9 (0.4-2.0) mmol/L Calcium 8.8 (8.4-10.2) mg/dL Magnesium 1.4 L (1.6-2.3) mg/dL Total Bilirubin 0.6 (0.2-1.3) mg/dL AST 18 (14-36) U/L ALT 11 (6-35) U/L Alkaline Phosphatase 70 (38-126) U/L Troponin I 0.027 (0.000-0.034) ng/mL NT-Pro-B Natriuret Pep 3720 H (19.9-100) pg/mL Total Protein 6.6 (6.3-8.2) g/dL Albumin 3.6 (3.5-5.1) g/dL TSH 0.991 (0.465-4.680) uIU/mL ABG Data ABG results: 02/08/25 09:07 Puncture Site Left brachial ABG pH 7.42 ABG pCO2 34.4 L ABG pO2 98.0 H ABG PO2/FiO2 Ratio Not Reportable ABG HCO3 21.9 L ABG O2 Saturation 97.2 H ABG O2 Content 16.5 ABG Base Excess -1.9 L A-a Gradient Not Reportable Oxyhemoglobin 95.7 Carboxyhemoglobin 1.3 Reduced Hemoglobin 2.8 H Total Hemoglobin 12.2 O2 Delivery Device Nasal cannula O2 Liters/Min 2.0 Discharge Plan Discharge Clinical Impression: Shortness of breath, Pulmonary edema, Hypomagnesemia, Atrial fibrillation Patient Disposition: Home Condition: Stable Instructions: A-fib (Atrial Fibrillation) (ED), Pulmonary Edema (ED), Hypomagnesemia (ED) Additional Instructions: Continue home medications Oxygen as needed Take medications as prescribed Follow up with your Primary Care Provider Follow up with your Translator Deaf Return as needed Patient Language: Occitan Prescriptions: New albuterol sulfate [Ventolin HFA] 90 mcg/actuation HFA aerosol inhaler 2 puff inhalation QID PRN (Reason: shortness of breath or wheezing) Qty: 8.5 0RF potassium chloride 10 mEq capsule, extended release 10 meq PO DAILY Qty: 30 0RF furosemide 20 mg tablet 20 mg PO DAILY Qty: 30 0RF magnesium oxide 400 mg magnesium capsule 400 mg PO DAILY Qty: 30 0RF No Action sennosides [Senna Lax] 8.6 mg tablet 8.6 mg PO Q12H PRN (Reason: constipation) Rx Instructions: Give 2 tabs polyethylene glycol 3350 [Miralax] 17 gram powder in packet 17 g PO DAILY PRN (Reason: constipation) acetaminophen [Acetaminophen Extra Strength] 500 mg tablet 500 mg PO Q6H PRN (Reason: fever or pain) Rx Instructions: Take 2 tabs to make 1000 mg PRN atorvastatin 20 mg Tablet 20 mg PO HS tamsulosin 0.4 mg Capsule 0.4 mg PO QAM Qty: 30 0RF diclofenac sodium [Voltaren Arthritis Pain] 1 % gel 4 g topical QID Qty: 100 0RF Rx Instructions: apply to single knee, ankle, foot; for foot includes sole/toes/top of foot warfarin 5 mg tablet cefdinir 300 mg capsule 300 mg PO Q12H Patient Comments: start date 02-06-25 stop date 02-13-25 dapagliflozin propanediol [Farxiga] 5 mg tablet 5 mg PO DAILY docusate sodium 100 mg tablet 100 mg PO DAILY melatonin 5 mg tablet 5 mg PO HS pantoprazole 40 mg tablet,delayed release (DR/EC) 40 mg PO DAILY cyclobenzaprine 10 mg Tablet 10 mg PO Q12H PRN (Reason: Muscle Spasm, Neck pain) Qty: 30 0RF eirirytv-dhiypsrzh-ianqmevqevo 10 ml PO Q4-5H PRN (Reason: heartburn) Rx Instructions: [id number] Follow-up/Referrals: Lasha Mahmood MD [Primary Care Provider] - Time of Disposition: 11:17
--- OUTSIDE RECORDS SUMMARY | 2025-02-08 08:49 | XMS_ITS ---
Author Organization [facility] Address [address] [place], [place] [id number] Care Team Providers Care Imaging System Administrator Name Role Phone MI JEREZ Unavailable [phone] Lasha Mahmood Unavailable Unavailable REASON FOR VISIT *General care Encounters Encounter Location Date Provider Diagnosis [address] [id number] 01/16/2024 MI JEREZ Plan Of Treatment No Information Progress Notes * MADISON GARNERDOB: 4 (79 yo F)Acc No.[id number]:01/16/2024 Patient: Deshaun ESTRADAMADISON Provider: Silvia JEREZ :1945 A ge:78 Y S ex:Female Date:01/16/2024 Address:[address] [place], [place] [id number] Subjective: * Chief Complaints: * 1 . *General care. * Medical History: Objective: * Vitals: Assessment: Plan: * Treatment: * Billing Information: * Visit Code: * Procedure Codes: * Electronic signature of FLOYD JEREZ DPM on 02/08/2025 at 08:49 AM CDT Sign off status: Pending * Provider: Silvia JEREZ Date: 0 01/16/2024 Generated for Vanessai ng/Faluis/eTransmitting on: 0 02/08/2025 08:49 AM CDT
--- OUTSIDE RECORDS SUMMARY | 2025-02-08 08:50 | XMS_ITS | Patient Health Record ---
Author Organization [facility] Address [address] [place], [place] [phone] Care Team Providers Care Painter Assistant Name Role Phone MI JEREZ Unavailable [phone] Lasha Mahmood Unavailable Unavailable Allergies Allergen (clinical [...] Date Coverage End Date Medicare Part B [place] [address] [place] [address] [id number] MADISON GARNER Self - patient is the insured [facility] ([facility]) ATTN CLAIMS [address] [place] [address] [id number] MADISON GARNER Self - patient is the insured Medical (General) History Medical History History ICD Code kidney stones neuropathy Arthritis Bladder infections Diabetic Blood clots
[2025-02-08 09:14] LABS: Basophils Absolute Auto 0.07 K/mm3 (0.00-0.10); Basophils Percent Auto 0.8 % (0.0-1.0); Eosinophils Absolute Auto 0.06 K/mm3 (0.02-0.50); Eosinophils Percent Auto 0.7 % (1.0-6.0); Hematocrit 34.5 % (35.0-42.0); Hemoglobin 10.7 g/dL (11.7-13.8); Immature Granulocyte Absolute 0.06 K/mm3 (0.00-0.00); Immature Granulocyte Percent A 0.7 % (0.0-0.0); Lymphocytes Absolute Auto 1.14 K/mm3 (1.10-4.50); Lymphocytes Percent Auto 12.8 % (18.0-42.0); Mean Corpuscular Hemoglobin 30.2 pg (27.0-31.0); Mean Corpuscular Volume 97.5 fL (78.0-102.0); Mean Platelet Volume 10.5 fl (9.2-11.8); Monocytes Absolute Auto 0.86 K/mm3 (0.10-0.90); Monocytes Percent Auto 9.6 % (2.0-11.0); Neutrophils Absolute Auto 6.73 K/mm3 (1.70-7.20); Neutrophils Percent Auto 75.4 % (50.0-70.0); Platelet Count Result 252 K/mm3 (150-420); Red Blood Count 3.54 M/mm3 (4.20-5.40); Red Cell Distribution Width 14.2 % (11.6-14.4); White Blood Count 8.9 K/mm3 (4.8-10.8)
[2025-02-08 09:15] LABS: Base Excess ABG -1.9 mmol/L (0-2); Carboxyhemoglobin 1.3 % (0-1.5); HCO3 ABG 21.9 mmol/L (23-29); Methemoglobin ABG 0.2 % (0-1.5); Oxygen Content ABG 16.5 %vol (16.0-22.0); Oxygen Saturation ABG 97.2 % (95-97); Oxyhemoglobin 95.7 % (94-100); PCO2 ABG 34.4 mmHg (35-45); Reduced Hemoglobin 2.8 % (0-1.5); pH ABG 7.42 (7.35-7.45)
[2025-02-08 09:18] LABS: Device NASAL CANNULA; Site Drawn LEFT BRACHIAL
[2025-02-08 09:29] LABS: Magnesium 1.4 mg/dL (1.6-2.3)
[2025-02-08 09:29] LABS: Alanine Aminotransferase 11 U/L (6-35); Albumin Level 3.6 g/dL (3.5-5.1); Alkaline Phosphatase 70 U/L (38-126); Anion Gap 5 mmol/L (4-12); Aspartate Amino Transferase 18 U/L (14-36); Bilirubin,Total 0.6 mg/dL (0.2-1.3); Blood Urea Nitrogen 13 mg/dL (7-17); Calcium 8.8 mg/dL (8.4-10.2); Carbon Dioxide 24 mmol/L (22-30); Chloride 109 mmol/L (98-107); Estimated CRCL calculation 50 ml/min; Estimated Glomerular Filt Rate 56; Glucose 203 mg/dL (65-110); Lactic Acid Reflex 0.9 mmol/L (0.4-2.0); Osmolality Calculated 292 mOsm/kg (285-295); Potassium 3.8 mmol/L (3.4-5.0); Sodium 138 mmol/L (137-145); Total Protein 6.6 g/dL (6.3-8.2)
[2025-02-08 09:32] LABS: D Dimer 0.22 mg/L (0.19-0.50)
[2025-02-08 09:38] LABS: NT Pro B Type Natriuretic Pept 3720 pg/mL (19.9-100)
[2025-02-08 09:51] LABS: Total Hemoglobin 12.2 g/dL (12.0-18.0)
[2025-02-08 09:59] LABS: Thyroid Stimulating Hormone 0.991 uIU/mL (0.465-4.680)
[2025-02-08 10:06] LABS: INR 1.8; Prothrombin Time 19.1 Seconds (9.50-12.1)
[2025-02-08] MEDS: MAGNESIUM OXIDE 400 MG TABLET PO (10:13)
[2025-02-08] MEDS: FUROSEMIDE INJ 20 MG/2 ML VIAL IV PUSH (10:13)
[2025-02-08 11:00] LABS: Troponin I 0.027 ng/mL (0.000-0.034)
--- NOTE | 2025-02-08 11:20 | PC.NURSE ---
call placed to [facility], informed of pt return, need for wheelchair and oxygen tank. spoke with anil nurse. sent copy of labs, ekg, chest xray with pt to shelter
--- NOTE | 2025-02-08 11:54 | PC.NURSE ---
attempted to get up up to wheelchair with pao steady. pt to wide in the hip region to fit pao steady device. will attempt ujng lift.
--- NOTE | 2025-02-08 12:14 | PC.NURSE ---
pt up to wheelchair with jung lift. [facility]erm[facility] tolerated well. departed 1210
== END 2025-02-08 12:10 | disposition home or self-care (01) ==
PROVIDERS: Emergency Provider Emergency Medicine; PCP Family Medicine
DX: J81.1 Chronic pulmonary edema (principal); I48.91 Unspecified atrial fibrillation; E83.42 Hypomagnesemia; R06.02 Shortness of breath; I13.0 Hypertensive heart and chronic kidney disease with heart failure and stage 1 through stage 4 chronic kidney disease, or unspecified chronic kidney disease; E11.22 Type 2 diabetes mellitus with diabetic chronic kidney disease; N18.31 Chronic kidney disease, stage 3a; I50.9 Heart failure, unspecified; E78.5 Hyperlipidemia, unspecified; Z79.899 Other long term (current) drug therapy; Z79.01 Long term (current) use of anticoagulants; Z87.891 Personal history of nicotine dependence
CPT/HCPCS: 36415; 36600; 71045; 80053; 82375; 82805; 83050; 83605; 83735; 83880; 84443; 84484; 85018; 85025; 85380; 85610; 93005; 96374; 99284; A9270; J1938

== ENCOUNTER 2025-02-12 09:30 | Outpatient (CLI) | payer MEDICARE, SELFPAY ==
--- OUTSIDE RECORDS SUMMARY | 2025-02-12 09:37 | XMS_ITS ---
Author Organization [facility] Address [address] [place], [place] [id number] Care Team Providers Care Warehouse Clerk Name Role Phone MI JEREZ Unavailable [phone] Lasha Mahmood Unavailable Unavailable REASON FOR VISIT *General care Encounters Encounter Location Date Provider Diagnosis [address] [id number] 01/16/2024 MI JEREZ Plan Of Treatment No Information Progress Notes * MADISON GARNERDOB: [birth year] (79 yo F)Acc No.[id number]:01/16/2024 Patient: Deshaun ESTRADAMADISON Provider: Silvia JEREZ :1945 A ge:78 Y S ex:Female Date:01/16/2024 Address:[address] [place], [place] [id number] Subjective: * Chief Complaints: * 1 . *General care. * Medical History: Objective: * Vitals: Assessment: Plan: * Treatment: * Billing Information: * Visit Code: * Procedure Codes: * Electronic signature of FLOYD JEREZ DPM on 02/12/2025 at 09:37 AM CDT Sign off status: Pending * Provider: Silvia JEREZ Date: 0 01/16/2024 Generated for Vanessai ng/Fapriceg/eTransmitting on: 0 02/12/2025 09:37 AM CDT
--- OUTSIDE RECORDS SUMMARY | 2025-02-12 09:37 | XMS_ITS | Patient Health Record ---
Author Organization [facility] Address [address] [place], [place] [id number] Care Team Providers Care Skin Former Name Role Phone MI JEREZ Unavailable [phone] Lasha Mahmood Unavailable Unavailable Allergies Allergen (clinical [...] Date Medicare Part B [place] [address] [place] [address] [id number] MADISON GARNER Self - patient is the insured [facility] ([facility]) ATTN CLAIMS [address] [place] [address] [id number] MADISON GARNER Self - patient is the insured Medical (General) History Medical History History ICD Code kidney stones neuropathy Arthritis Bladder infections Diabetic Blood clots
[2025-02-12 10:20] LABS: INR 1.5
== END 2025-02-12 09:31 | disposition home or self-care (01) ==
PROVIDERS: PCP Family Medicine; Visit Provider Family Medicine
DX: Z79.01 Long term (current) use of anticoagulants (principal)
CPT/HCPCS: 36415; 85610

== ENCOUNTER 2025-02-15 19:25 | Outpatient (NON) | payer MEDICARE, SELFPAY ==
--- OUTSIDE RECORDS SUMMARY | 2025-02-15 19:29 | XMS_ITS | Patient Health Record ---
Author Organization [facility] Address [address] [place], [place] [phone] Care Team Providers Care Pct Name Role Phone MI JEREZ Unavailable [phone] Lasha Mahmood Unavailable Unavailable Allergies Allergen (clinical [...] Date Medicare Part B [place] [address] [place] [address] [id number] MADISON GARNER Self - patient is the insured [facility] ([facility]) ATTN CLAIMS [address] [place] [address] [id number] MADISON GARNER Self - patient is the insured Medical (General) History Medical History History ICD Code kidney stones neuropathy Arthritis Bladder infections Diabetic Blood clots
--- OUTSIDE RECORDS SUMMARY | 2025-02-15 19:29 | XMS_ITS ---
Author Organization [facility] Address [address] [place], [place] [address] Care Team Providers Care Tc Operator Name Role Phone MI JEREZ Unavailable [phone] Lasha Mahmood Unavailable Unavailable REASON FOR VISIT *General care Encounters Encounter Location Date Provider Diagnosis [address] [id number] 01/16/2024 MI JEREZ Plan Of Treatment No Information Progress Notes * MADISON GARNERDOB: 4 (79 yo F)Acc No.[id number]:01/16/2024 Patient: Deshaun ESTRADAMADISON Provider: Silvia JEREZ :1945 A ge:78 Y S ex:Female Date:01/16/2024 Address:[address] [place], [place] [phone] Subjective: * Chief Complaints: * 1 . *General care. * Medical History: Objective: * Vitals: Assessment: Plan: * Treatment: * Billing Information: * Visit Code: * Procedure Codes: * Electronic signature of FLOYD JEREZ DPM on 02/15/2025 at 07:28 PM CDT Sign off status: Pending * Provider: Silvia JEREZ Date: 0 01/16/2024 Generated for Vanessai ng/Fapriceg/eTransmitting on: 0 02/15/2025 07:28 PM CDT
[2025-02-15 22:37] LABS: Add Urine Microscopic? NO; Appearance Urine Clear (Clear); Bilirubin Urine Negative (Negative); Blood Urine Negative (Negative); Color Urine Light Yellow (Yellow); Glucose Urine UA Negative (Negative); Ketones Urine Negative (Negative); Leukocyte Esterase Ur Negative LEU/UL (Negative); Nitrate Urine Negative (Negative); Protein Urine Negative (Negative); Urobilinogen Urine 0.2 mg/dL (0.2-1.0); pH Urine 6.5 (5.0-8.0)
== END 2025-02-15 19:26 | disposition home or self-care (01) ==
PROVIDERS: PCP Family Medicine; Visit Provider Family Medicine
DX: I50.33 Acute on chronic diastolic (congestive) heart failure (principal); N18.31 Chronic kidney disease, stage 3a
CPT/HCPCS: 81003

== ENCOUNTER 2025-02-17 10:04 | Outpatient (CLI) | payer MEDICARE, SELFPAY ==
--- NOTE | ~2025-02-17 | XR_ITS ---
Clinical Indication: CHF PA and lateral views of the chest: Comparison: 02/08/2025 Findings: Small bilateral pleural effusions are present with mild bibasilar pulmonary edema/atelectas is.. Cardiomediastinal silhouette is stable. Bones and soft tissues are unremarkable. Impression: Small bilateral pleural effusions with mild bibasilar pulmonary edema/atelectasis. Reviewed, dictated and finalized at location . Impression: Small bilateral pleural effusions with mild bibasilar pulmonary edema/atelectas is.
[2025-02-17 10:32] LABS: Basophils Absolute Auto 0.04 K/mm3 (0.00-0.10); Basophils Percent Auto 0.5 % (0.0-1.0); Eosinophils Absolute Auto 0.34 K/mm3 (0.02-0.50); Eosinophils Percent Auto 4.2 % (1.0-6.0); Hematocrit 33.9 % (35.0-42.0); Hemoglobin 10.5 g/dL (11.7-13.8); Immature Granulocyte Absolute 0.03 K/mm3 (0.00-0.00); Immature Granulocyte Percent A 0.4 % (0.0-0.0); Lymphocytes Absolute Auto 1.83 K/mm3 (1.10-4.50); Lymphocytes Percent Auto 22.5 % (18.0-42.0); Mean Corpuscular Hemoglobin 29.7 pg (27.0-31.0); Mean Corpuscular Volume 95.8 fL (78.0-102.0); Mean Platelet Volume 11.6 fl (9.2-11.8); Monocytes Absolute Auto 0.67 K/mm3 (0.10-0.90); Monocytes Percent Auto 8.2 % (2.0-11.0); Neutrophils Absolute Auto 5.24 K/mm3 (1.70-7.20); Neutrophils Percent Auto 64.2 % (50.0-70.0); Platelet Count Result 204 K/mm3 (150-420); Red Blood Count 3.54 M/mm3 (4.20-5.40); Red Cell Distribution Width 13.9 % (11.6-14.4); White Blood Count 8.2 K/mm3 (4.8-10.8)
[2025-02-17 10:53] LABS: Anion Gap 4 mmol/L (4-12); Blood Urea Nitrogen 20 mg/dL (7-17); Calcium 8.5 mg/dL (8.4-10.2); Carbon Dioxide 31 mmol/L (22-30); Chloride 103 mmol/L (98-107); Estimated Glomerular Filt Rate 56; Glucose 163 mg/dL (65-110); Osmolality Calculated 292 mOsm/kg (285-295); Sodium 138 mmol/L (137-145)
[2025-02-17 11:02] LABS: NT Pro B Type Natriuretic Pept 2090 pg/mL (19.9-100)
--- OUTSIDE RECORDS SUMMARY | 2025-02-17 11:24 | XMS_ITS | Patient Health Record ---
Author Organization [facility] Address [address] [place], [place] [phone] Care Team Providers Care Screen And Cyclone Repairer Name Role Phone MI JREEZ Unavailable [phone] Lasha Mahmood Unavailable Unavailable Allergies Allergen (clinical [...] Date Medicare Part B [place] [address] [place] [address] [id number] MADISON AGRNER Self - patient is the insured [facility] ([facility]) ATTN CLAIMS [address] [place] [address] [id number] MADISON GARNER Self - patient is the insured Medical (General) History Medical History History ICD Code kidney stones neuropathy Arthritis Bladder infections Diabetic Blood clots
--- OUTSIDE RECORDS SUMMARY | 2025-02-17 11:24 | XMS_ITS ---
Author Organization [facility] Address [address] [place], [place] [phone] Care Team Providers Care Still Operator Batch Or Continuous Name Role Phone MI JEREZ Unavailable [phone] Lasha Mahmood Unavailable Unavailable REASON FOR VISIT *General care Encounters Encounter Location Date Provider Diagnosis [address] [id number] 01/16/2024 MI JEREZ Plan Of Treatment No Information Progress Notes * MADISON GARNERDOB: [birth year] (79 yo F)Acc No.[id number]:01/16/2024 Patient: Deshaun ESTRADAMADISON Provider: Silvia JEREZ :1945 A ge:78 Y S ex:Female Date:01/16/2024 Address:[address] [place], [place] [id number] Subjective: * Chief Complaints: * 1 . *General care. * Medical History: Objective: * Vitals: Assessment: Plan: * Treatment: * Billing Information: * Visit Code: * Procedure Codes: * Electronic signature of FLOYD JEREZ DPM on 02/17/2025 at 11:23 AM CDT Sign off status: Pending * Provider: Silvia JEREZ Date: 0 01/16/2024 Generated for Vanessai ng/Fapriceg/eTransmitting on: 0 02/17/2025 11:23 AM CDT
== END 2025-02-17 10:05 | disposition home or self-care (01) ==
PROVIDERS: PCP Family Medicine; Visit Provider Family Medicine
DX: I50.9 Heart failure, unspecified (principal); R05.9 Cough, unspecified; J90 Pleural effusion, not elsewhere classified; J81.1 Chronic pulmonary edema
CPT/HCPCS: 36415; 71046; 80048; 83880; 85025

== ENCOUNTER 2025-02-19 11:54 | Outpatient (CLI) | payer MEDICARE, SELFPAY ==
[2025-02-19 12:37] LABS: INR 4.2; Prothrombin Time 40.3 Seconds (9.50-12.1)
== END 2025-02-19 11:55 | disposition home or self-care (01) ==
PROVIDERS: PCP Family Medicine; Visit Provider Family Medicine
DX: Z79.01 Long term (current) use of anticoagulants (principal)
CPT/HCPCS: 36415; 85610

== ENCOUNTER 2025-02-23 09:14 | Outpatient (CLI) | payer MEDICARE, SELFPAY ==
[2025-02-23 09:37] LABS: INR 2.2; Prothrombin Time 22.3 Seconds (9.50-12.1)
== END 2025-02-23 09:15 | disposition home or self-care (01) ==
PROVIDERS: PCP Family Medicine; Visit Provider Family Medicine
DX: Z79.01 Long term (current) use of anticoagulants (principal)
CPT/HCPCS: 36415; 85610

== ENCOUNTER 2025-03-02 10:30 | Outpatient (CLI) | payer MEDICARE, SELFPAY ==
--- OUTSIDE RECORDS SUMMARY | 2025-03-02 10:45 | XMS_ITS | Patient Health Record ---
Author Organization [facility] Address [address] [place], [place] [address] Care Team Providers Care Production Team Member Name Role Phone MI JEREZ Unavailable [phone] Lasha Mahmood Unavailable Unavailable Allergies Allergen (clinical drug ingredient) Drug/Non Drug Allergy documented on EMR Reaction Allergy Type Onset Date Status Shellfish (FN) Shellfish-derived Products Unknown Drug Allergy Active Reason For Referral No Information Medications Medication SIG (Take, Route, Frequency, Duration) Notes Start Date End Date Status Atorvastatin Calcium 20 MG Oral; Duration: 30 Days Active Lisinopril 5 MG Oral; Duration: 30 Days Active Methotrexate Sodium 2.5 MG TAKE 5 TABLET S BY MOUTH IN AM AND PM BY ORAL ROUTE ONCE WEEKLY Oral; Duration: 28 Days Active Cephalexin 500 MG Oral; Duration: 3 Days Active Furosemide 20 MG Oral; Duration: 30 Days Active Diclofenac Sodium 75 MG Oral; Duration: 30 Days Active Omeprazole 40 MG Oral; Duration: 30 Days Active Warfarin Sodium 2 MG Oral; Duration: 30 Days Active Plan Of Treatment No Information Insurance Providers Payer Name Payer Address Payer Phone Subscriber Number Group Number Insured Name Patient Relationship to Insured Coverage Start Date Coverage End Date Medicare Part B [place] [address] [place] [phone] [id number] MADISON GARNER Self - patient is the insured [facility] ([facility]) ATTN CLAIMS [address] [place] [address] [id number] MADISON GARNER Self - patient is the insured Medical (General) History Medical History History ICD Code kidney stones neuropathy Arthritis Bladder infections Diabetic Blood clots
--- OUTSIDE RECORDS SUMMARY | 2025-03-02 10:45 | XMS_ITS ---
Author Organization [facility] Address [address] [place], [place] [address] Care Team Providers Care Engrosser Name Role Phone MI JEREZ Unavailable [phone] Lasha Mahmood Unavailable Unavailable REASON FOR VISIT *General care Encounters Encounter Location Date Provider Diagnosis [address] [id number] 01/16/2024 MI JEREZ Plan Of Treatment No Information Progress Notes * MADISON GARNERDOB: 4 (79 yo F)Acc No.[id number]:01/16/2024 Patient: Deshaun ESTRADAMADISON Provider: Silvia JEREZ :1945 A ge:78 Y S ex:Female Date:01/16/2024 Address:[address] [place], [place] [id number] Subjective: * Chief Complaints: * 1 . *General care. * Medical History: Objective: * Vitals: Assessment: Plan: * Treatment: * Billing Information: * Visit Code: * Procedure Codes: * Electronic signature of FLOYD JEREZ DPM on 03/02/2025 at 10:45 AM CDT Sign off status: Pending * Provider: Silvia JEREZ Date: 01/16/2024 Generated for Vanessai ng/Faluis/eTransmitting on: 03/02/2025 10:45 AM CDT
--- OUTSIDE RECORDS SUMMARY | 2025-03-02 10:45 | XMS_ITS | Clinical Summary ---
Author Organization [facility] Address [address] [place] [address] Care Team Providers Care Elastic Yarn Twister Name Role Phone Beth Peterson EXECUTIVE SALES ASSISTANT Unavailable Allergies No known active allergies [...] hyperosmolarity without nonketotic hyperglycemic-hyper osmolar coma (NKHHC) ([facility]) Per sliding scale 0-149 = 0 [...] hyperosmolarity without nonketotic hyperglycemic-hyper osmolar coma (NKHHC) ([facility]) Take 1 tablet (500 mg total) [...] with hyperosmolarity without nonketotic hyperglycemic-hyperosmolar coma (NKHHC) ([facility]) 08/17/2021 Personal history of noncompl iance [...] Dates Next Due Influenza Adult (Generic) 08/15/2021,03/2017,05/29/2016,2014 [employer] ([employer]) COVID-19 AD26 VACCINE 0.5 ML IM SUSP [...] on file Legal Sex Female 2:51 PM PRINCIPAL HARDWARE ARCHITECT Gender Identity Not on file Sexual Orientation Not on file Last Filed Vital Signs Vital Sign Reading Time Taken Comments Blood Pressure 122/45 09/13/2021 8:55 AM PRINCIPAL HARDWARE ARCHITECT Pulse 76 09/13/2021 8:55 AM PRINCIPAL HARDWARE ARCHITECT Temperature 36.7 C (98 F) 09/13/2021 8:55 AM PRINCIPAL HARDWARE ARCHITECT Respiratory Rate 20 09/13/2021 8:55 AM PRINCIPAL HARDWARE ARCHITECT Oxygen Saturation 97% 09/13/2021 8:55 AM PRINCIPAL HARDWARE ARCHITECT Inhaled Oxygen Concentration - - Weight 103 kg (227 lb) 09/13/2021 8:55 AM PRINCIPAL HARDWARE ARCHITECT Height 157.5 cm (5' 2) 07/15/2021 3:08 PM PRINCIPAL HARDWARE ARCHITECT Body Mass Index 41.52 07/15/2021 3:08 PM PRINCIPAL HARDWARE ARCHITECT Plan of Treatment Health Maintenance Due Date [...] home safety measures General No Theresa Belle electrician supervisor airplane Procedure Name Priority Date/Time Associated Diagnosis Comments HEMOGLOBIN, GLYCOSYLATED Routine 08/29/2021 8:20 AM PRINCIPAL HARDWARE ARCHITECT from Last 3 Months or Most Recently Relevant to Health Maintenance Results * (ABNORMAL) HEMOGLOBIN, GLYCOSYLATED (08/29/2021 8:20 AM PRINCIPAL HARDWARE ARCHITECT) HGB A1C 8.3(H) 4.2 - 6.3 % [facility] Comment: Note: Hemoglobinopathies such as HbF, HbS, etc. may give incorrect results with this test. ESTIMATED AVG GLUCOSE 190 mg/dL [facility] Comment: (This value is a calculated estimate of the mean blood glucose over the last 60 days based on the patient's HgbA1c value. 08/29/2021 8:20 AM PRINCIPAL HARDWARE ARCHITECT 08/29/2021 8:20 AM PRINCIPAL HARDWARE ARCHITECT us Ryan Contreras DO LABORATORY Final Result [facility] [address] [place] [address] from Last 3 Months or Most Recently Relevant to Health Maintenance Advance Directives Documents on File Type Date Recorded Patient De Icer Finisher Expl anation DNR (Do Not Resuscitate) Documentation 08/22/2021 9:38 AM POLST * DNR (Latest Code Status on File) Date Activated Date Inactivated Comments 08/23/2021 9:40 AM * Full Code Date Activated Date Inactivated Comments 08/17/2021 2:39 PM 08/23/2021 9:40 AM * Full Code Date Activated Date Inactivated Comments 07/16/2021 12:10 AM 07/19/2021 10:01 PM Care Teams Elastic Yarn Twister Relationship Specialty Start Date End Date Beth Peterson NP Nurse Practitioner Shelter Facility 08/14/21
[2025-03-02 10:46] LABS: Hematocrit 33.7 % (35.0-42.0); Hemoglobin 10.6 g/dL (11.7-13.8); Immature Granulocyte Percent A 0.3 % (0.0-0.0); Lymphocytes Absolute Auto 1.81 K/mm3 (1.10-4.50); Mean Corpuscular HGB Conc 31.5 g/dL (32-36); Mean Corpuscular Hemoglobin 29.5 pg (27.0-31.0); Mean Corpuscular Volume 93.9 fL (78.0-102.0); Nucleated Red Blood Cells Absolute Auto 0.00 K/mm3 (0.00-0.00); Nucleated Red Blood Cells Perc 0.0 % (0-0.0); Platelet Count Result 282 K/mm3 (150-420); Red Blood Count 3.59 M/mm3 (4.20-5.40); White Blood Count 9.2 K/mm3 (4.8-10.8)
[2025-03-02 11:02] LABS: INR 1.9; Prothrombin Time 19.5 Seconds (9.50-12.1)
[2025-03-02 11:30] LABS: Alanine Aminotransferase 9 U/L (6-35); Albumin Level 3.2 g/dL (3.5-5.1); Alkaline Phosphatase 62 U/L (38-126); Anion Gap 5 mmol/L (4-12); Aspartate Amino Transferase 15 U/L (14-36); Bilirubin,Total 0.4 mg/dL (0.2-1.3); Blood Urea Nitrogen 23 mg/dL (7-17); Calcium 8.8 mg/dL (8.4-10.2); Carbon Dioxide 28 mmol/L (22-30); Chloride 105 mmol/L (98-107); Estimated Glomerular Filt Rate 44; Glucose 208 mg/dL (65-110); Osmolality Calculated 295 mOsm/kg (285-295); Potassium 4.3 mmol/L (3.4-5.0); Sodium 138 mmol/L (137-145); Total Protein 6.0 g/dL (6.3-8.2)
[2025-03-04 08:46] LABS: Iron 41 ug/dL (37-170)
[2025-03-04 08:56] LABS: Percent Iron Saturation 12 % (20-50)
[2025-03-04 09:23] LABS: Ferritin 26.00 ng/mL (11.1-264)
== END 2025-03-02 10:31 | disposition home or self-care (01) ==
LOC: CHSLAB 10:33
PROVIDERS: PCP Family Medicine; Visit Provider Family Medicine
DX: Z79.01 Long term (current) use of anticoagulants (principal); I50.9 Heart failure, unspecified; N18.30 Chronic kidney disease, stage 3 unspecified; E11.9 Type 2 diabetes mellitus without complications
CPT/HCPCS: 36415; 80053; 82728; 83540; 83550; 85025; 85610

== ENCOUNTER 2025-03-10 13:22 | Outpatient (CLI) | payer MEDICARE, SELFPAY ==
--- NOTE | ~2025-03-10 | XR_ITS ---
EXAM/ PROCEDURE: XR knee LT 3V - 03/10/2025 13:29 CDT HISTORY: 79 years old Female with Bilateral knee pain COMPARISON: None available TECHNIQUE: Three view(s) FINDINGS/ IMPRESSION: There are no fractures or dislocations.Joint space narrowing, subchondral sclerosis, subchondral cyst formation and osteophyte formation, compatible with moderate osteoarthritis. Reviewed, dictated and finalized at location A.
--- NOTE | ~2025-03-10 | XR_ITS ---
EXAM/ PROCEDURE: XR knee RT 3V - 03/10/2025 13:29 CDT HISTORY: 79 years old Female with Bilateral knee pain COMPARISON: None available TECHNIQUE: Three view(s) FINDINGS/ IMPRESSION: There are no fractures or dislocations.Joint space narrowing, subchondral sclerosis, subchondral cyst formation and osteophyte formation, compatible with moderate to severe osteoarthritis, most pronounc ed in the medial tibiofemoral compartment. Reviewed, dictated and finalized at location A.
--- OUTSIDE RECORDS SUMMARY | 2025-03-10 13:38 | XMS_ITS | Patient Health Record ---
Author Organization [facility] Address [address] [place], [place] [address] Care Team Providers Care Bottle Blowing Machine Tender Name Role Phone MI JEREZ Unavailable [phone] Lasha Mahmood Unavailable Unavailable Allergies Allergen (clinical [...] Medicare Part B [place] [address] [place] [phone] [id number] MADISON GARNER Self - patient is the insured [facility] ([facility]) ATTN CLAIMS [address] [place] [address] [id number] MADISON GARNER Self - patient is the insured Medical (General) History Medical History History ICD Code kidney stones neuropathy Arthritis Bladder infections Diabetic Blood clots
--- OUTSIDE RECORDS SUMMARY | 2025-03-10 13:38 | XMS_ITS ---
Author Organization [facility] Address [address] [place], [place] [address] Care Team Providers Care Fabric Worker Name Role Phone MI JEREZ Unavailable [phone] Lasha Mahmood Unavailable Unavailable REASON FOR VISIT *General care Encounters Encounter Location Date Provider Diagnosis [address] [id number] 01/16/2024 MI JEREZ Plan Of Treatment No Information Progress Notes * MADISON GARNERDOB: [birth year] (79 yo F)Acc No.[id number]:01/16/2024 Patient: Deshaun ESTRADAMADISON Provider: Silvia JEREZ :1945 A ge:78 Y S ex:Female Date:01/16/2024 Address:[address] [place], [place] [phone] Subjective: * Chief Complaints: * 1 . *General care. * Medical History: Objective: * Vitals: Assessment: Plan: * Treatment: * Billing Information: * Visit Code: * Procedure Codes: * Electronic signature of FLOYD JEREZ DPM on 03/10/2025 at 01:37 PM CDT Sign off status: Pending * Provider: Silvia JEREZ Date: 01/16/2024 Generated for Vanessai ng/Fapriceg/eTransmitting on: 03/10/2025 01:37 PM CDT
--- OUTSIDE RECORDS SUMMARY | 2025-03-10 13:38 | XMS_ITS | Clinical Summary ---
Author Organization [facility] Address [address] [place] [address] Care Team Providers Care Transcribing Operators Supervisor Name Role Phone Beth Peterson RETOUCHER Unavailable Allergies No known active allergies Medications [...] hyperosmolarity without nonketotic hyperglycemic-hyper osmolar coma (NKHHC) ([facility]) Per sliding scale 0-149 = [...] without nonketotic hyperglycemic-hyper osmolar coma (NKHHC) ([facility]) Take 1 tablet (500 mg [...] with hyperosmolarity without nonketotic hyperglycemic-hyperosmolar coma (NKHHC) ([facility]) 08/17/2021 Personal history of noncompl [...] Dates Next Due Influenza Adult (Generic) 08/15/2021,03/2017,05/29/2016,2014 [employer]) COVID-19 AD26 VACCINE 0.5 ML IM SUSP [...] on file Legal Sex Female 2:51 PM IRRIGATIONIST Gender Identity Not on file Sexual Orientation Not on file Last Filed Vital Signs Vital Sign Reading Time Taken Comments Blood Pressure 122/45 09/13/2021 8:55 AM IRRIGATIONIST Pulse 76 09/13/2021 8:55 AM IRRIGATIONIST Temperature 36.7 C (98 F) 09/13/2021 8:55 AM IRRIGATIONIST Respiratory Rate 20 09/13/2021 8:55 AM IRRIGATIONIST Oxygen Saturation 97% 09/13/2021 8:55 AM IRRIGATIONIST Inhaled Oxygen Concentration - - Weight 103 kg (227 lb) 09/13/2021 8:55 AM IRRIGATIONIST Height 157.5 cm (5' 2) 07/15/2021 3:08 PM IRRIGATIONIST Body Mass Index 41.52 07/15/2021 3:08 PM IRRIGATIONIST Plan of Treatment Health Maintenance Due Date [...] home safety measures General No Theresa Belle deckhand Procedure Name Priority Date/Time Associated Diagnosis Comments HEMOGLOBIN, GLYCOSYLATED Routine 08/29/2021 8:20 AM IRRIGATIONIST from Last 3 Months or Most Recently Relevant to Health Maintenance Results * (ABNORMAL) HEMOGLOBIN, GLYCOSYLATED (08/29/2021 8:20 AM IRRIGATIONIST) HGB A1C 8.3(H) 4.2 - 6.3 % [facility] Comment: Note: Hemoglobinopathies such as HbF, HbS, etc. may give incorrect results with this test. ESTIMATED AVG GLUCOSE 190 mg/dL [facility] Comment: (This value is a calculated estimate of the mean blood glucose over the last 60 days based on the patient's HgbA1c value. 08/29/2021 8:20 AM IRRIGATIONIST 08/29/2021 8:20 AM IRRIGATIONIST us Ryan Contreras DO LABORATORY Final Result [facility] [address] [place] [address] from Last 3 Months or Most Recently Relevant to Health Maintenance Advance Directives Documents on File Type Date Recorded Patient Mimeographer Expl anation DNR (Do Not Resuscitate) Documentation 08/22/2021 9:38 AM POLST * DNR (Latest Code Status on File) Date Activated Date Inactivated Comments 08/23/2021 9:40 AM * Full Code Date Activated Date Inactivated Comments 08/17/2021 2:39 PM 08/23/2021 9:40 AM * Full Code Date Activated Date Inactivated Comments 07/16/2021 12:10 AM 07/19/2021 10:01 PM Care Teams Transcribing Operators Supervisor Relationship Specialty Start Date End Date Beth Peterson NP Nurse Practitioner Custodial Facility 08/14/21
== END 2025-03-10 13:23 | disposition home or self-care (01) ==
PROVIDERS: PCP Family Medicine; Visit Provider Family Medicine
DX: M25.561 Pain in right knee (principal); M25.562 Pain in left knee
CPT/HCPCS: 73562

== ENCOUNTER 2025-03-17 15:21 | Outpatient (CLI) | payer MEDICARE, SELFPAY ==
--- OUTSIDE RECORDS SUMMARY | 2025-03-17 15:26 | XMS_ITS | Patient Health Record ---
Author Organization [facility] Address [address] [place], [place] [address] Care Team Providers Care Meter Inspector Name Role Phone MI JEREZ Unavailable [phone] Lasha Mahmood Unavailable Unavailable Allergies Allergen (clinical [...] Medicare Part B [place] [address] [place] [phone] [id number] MADISON GARNER Self - patient is the insured [facility] ([facility]) ATTN CLAIMS [address] [place] [address] [id number] MADISON GARNER Self - patient is the insured Medical (General) History Medical History History ICD Code kidney stones neuropathy Arthritis Bladder infections Diabetic Blood clots
--- OUTSIDE RECORDS SUMMARY | 2025-03-17 15:26 | XMS_ITS | Clinical Summary ---
Author Organization [facility] Address [address] [place] [address] Care Team Providers Care Clay Miller Name Role Phone Beth Peterson VENDING MACHINE COIN COLLECTOR Unavailable Allergies No known active allergies Medications [...] coma (NKHHC) ([facility]) Per [...] hyperosmolarity without nonketotic hyperglycemic-hyper osmolar coma (NKHHC) ([facility]) Take 1 [...] coma (NKHHC) ([facility]) 08/17/2021 [...] Dates Next Due Influenza Adult (Generic) 08/15/2021,03/2017,05/29/2016,2014 [employer]) COVID-19 AD26 VACCINE 0.5 ML IM SUSP [...] on file Legal Sex Female 2:51 PM THROAT CUTTER Gender Identity Not on file Sexual Orientation Not on file Last Filed Vital Signs Vital Sign Reading Time Taken Comments Blood Pressure 122/45 09/13/2021 8:55 AM THROAT CUTTER Pulse 76 09/13/2021 8:55 AM THROAT CUTTER Temperature 36.7 C (98 F) 09/13/2021 8:55 AM THROAT CUTTER Respiratory Rate 20 09/13/2021 8:55 AM THROAT CUTTER Oxygen Saturation 97% 09/13/2021 8:55 AM THROAT CUTTER Inhaled Oxygen Concentration - - Weight 103 kg (227 lb) 09/13/2021 8:55 AM THROAT CUTTER Height 157.5 cm (5' 2) 07/15/2021 3:08 PM THROAT CUTTER Body Mass Index 41.52 07/15/2021 3:08 PM THROAT CUTTER Plan of Treatment Health Maintenance Due Date [...] home safety measures General No Theresa Belle laydown machine operator Procedure Name Priority Date/Time Associated Diagnosis Comments HEMOGLOBIN, GLYCOSYLATED Routine 08/29/2021 8:20 AM THROAT CUTTER from Last 3 Months or Most Recently Relevant to Health Maintenance Results * (ABNORMAL) HEMOGLOBIN, GLYCOSYLATED (08/29/2021 8:20 AM THROAT CUTTER) HGB A1C 8.3(H) 4.2 - 6.3 % [facility] Comment: Note: Hemoglobinopathies such as HbF, HbS, etc. may give incorrect results with this test. ESTIMATED AVG GLUCOSE 190 mg/dL [facility] Comment: (This value is a calculated estimate of the mean blood glucose over the last 60 days based on the patient's HgbA1c value. 08/29/2021 8:20 AM THROAT CUTTER 08/29/2021 8:20 AM THROAT CUTTER us Ryan Contreras DO LABORATORY Final Result [facility] [address] [place] [address] from Last 3 Months or Most Recently Relevant to Health Maintenance Advance Directives Documents on File Type Date Recorded Patient Animal Feeder Expl anation DNR (Do Not Resuscitate) Documentation 08/22/2021 9:38 AM POLST * DNR (Latest Code Status on File) Date Activated Date Inactivated Comments 08/23/2021 9:40 AM * Full Code Date Activated Date Inactivated Comments 08/17/2021 2:39 PM 08/23/2021 9:40 AM * Full Code Date Activated Date Inactivated Comments 07/16/2021 12:10 AM 07/19/2021 10:01 PM Care Teams Clay Miller Relationship Specialty Start Date End Date Beth Peterson NP Nurse Practitioner Custodial Facility 08/14/21
--- OUTSIDE RECORDS SUMMARY | 2025-03-17 15:26 | XMS_ITS ---
Author Organization [facility] Address [address] [place], [place] [address] Care Team Providers Care Real Estate Investment Analyst Name Role Phone MI JEREZ Unavailable [phone] Lasha Mahmood Unavailable Unavailable REASON FOR VISIT *General care Encounters Encounter Location Date Provider Diagnosis [address] [id number] 01/16/2024 MI JEREZ Plan Of Treatment No Information Progress Notes * MADISON GARNERDOB: 4 (79 yo F)Acc No.[id number]:01/16/2024 Patient: Deshaun ESTRADAMADISON Provider: Silvia JEREZ :1945 A ge:78 Y S ex:Female Date:01/16/2024 Address:[address] [place], [place] [phone] Subjective: * Chief Complaints: * 1 . *General care. * Medical History: Objective: * Vitals: Assessment: Plan: * Treatment: * Billing Information: * Visit Code: * Procedure Codes: * Electronic signature of FLOYD JEREZ DPM on 03/17/2025 at 03:26 PM CDT Sign off status: Pending * Provider: Silvia JEREZ Date: 01/16/2024 Generated for Vanessai ng/Fapriceg/eTransmitting on: 03/17/2025 03:26 PM CDT
[2025-03-17 15:56] LABS: INR 2.8; Prothrombin Time 27.9 Seconds (9.50-12.1)
== END 2025-03-17 15:22 | disposition home or self-care (01) ==
PROVIDERS: PCP Family Medicine; Visit Provider Family Medicine
DX: Z79.01 Long term (current) use of anticoagulants (principal)
CPT/HCPCS: 36415; 85610

== ENCOUNTER 2025-04-11 15:03 | Outpatient (NON) | payer MEDICARE, MEDICAID, SELFPAY ==
--- OUTSIDE RECORDS SUMMARY | 2025-04-11 15:08 | XMS_ITS ---
Author Organization [facility] Address [address] [place], [place] [address] Care Team Providers Care Facilities Technician Name Role Phone MI JEREZ Unavailable [phone] Lasha Mahmood Unavailable Unavailable REASON FOR VISIT *General care Encounters Encounter Location Date Provider Diagnosis [address] [id number] 01/16/2024 MI JEREZ Plan Of Treatment No Information Progress Notes * MADISON GARNERDOB: 4 (79 yo F)Acc No.[id number]:01/16/2024 Patient: Deshaun ESTRADAMADISON Provider: Silvia JEREZ :1945 A ge:78 Y S ex:Female Date:01/16/2024 Address:[address] [place], [place] [phone] Subjective: * Chief Complaints: * 1 . *General care. * Medical History: Objective: * Vitals: Assessment: Plan: * Treatment: * Billing Information: * Visit Code: * Procedure Codes: * Electronic signature of FLOYD JEREZ DPM on 04/11/2025 at 03:08 PM CDT Sign off status: Pending * Provider: Silvia JEREZ Date: 0 01/16/2024 Generated for Vanessai ng/Fapriceg/eTransmitting on: 04/11/2025 03:08 PM CDT
--- OUTSIDE RECORDS SUMMARY | 2025-04-11 15:08 | XMS_ITS | Patient Health Record ---
Author Organization [facility] Address [address] [place], [place] [address] Care Team Providers Care Manager Of Financial Name Role Phone MI JEREZ Unavailable [phone] Lasha Mahmood Unavailable Unavailable Allergies Allergen (clinical [...] Medicare Part B [place] [address] [place] [phone] [id number] MDAISON GARNER Self - patient is the insured [facility] ([facility]) ATTN CLAIMS [address] [place] [address] [id number] MADISON GARNER Self - patient is the insured Medical (General) History Medical History History ICD Code kidney stones neuropathy Arthritis Bladder infections Diabetic Blood clots
[2025-04-11 16:59] LABS: Add Urine Microscopic? YES; Appearance Urine Sl Cloudy (Clear); Glucose Urine UA Negative (Negative); Leukocyte Esterase Ur 2+ LEU/UL (Negative); Nitrate Urine Negative (Negative); Specific Grav Ur 1.015 (1.010-1.020)
== END 2025-04-11 15:04 | disposition home or self-care (01) ==
PROVIDERS: PCP Family Medicine; Visit Provider Family Medicine
DX: R30.0 Dysuria (principal)
CPT/HCPCS: 81001; 87086; 87186

== ENCOUNTER 2025-04-28 08:10 | Outpatient (NON) | payer MEDICARE, SELFPAY ==
--- OUTSIDE RECORDS SUMMARY | 2024-01-16 08:20 | XMS_ITS ---
Author Organization [facility] Address [address] [place], [place] [id number] Care Team Providers Care [place] Clown Name Role Phone MI JEREZ Unavailable [phone] Lasha Mahmood Unavailable Unavailable REASON FOR VISIT *General care Encounters Encounter Location Date Provider Diagnosis [address] [id number] 01/16/2024 MI JEREZ Plan Of Treatment No Information Progress Notes * MADISON GARNERDOB: [birth year] (79 yo F)Acc No.[id number]:01/16/2024 Patient: Deshaun ESTRADAMADISON Provider: Silvia JEREZ :1945 A ge:78 Y S ex:Female Date:01/16/2024 Address:[address] [place], [place] [id number] Subjective: * Chief Complaints: * 1 . *General care. * Medical History: Objective: * Vitals: Assessment: Plan: * Treatment: * Billing Information: * Visit Code: * Procedure Codes: * Electronic signature of FLOYD JEREZ DPM on 04/28/2025 at 08:15 AM CDT Sign off status: Pending * Provider: Silvia JEREZ Date: 0 01/16/2024 Generated for Vanessai ng/Fapriceg/eTransmitting on: 04/28/2025 08:15 AM CDT
--- OUTSIDE RECORDS SUMMARY | 2025-04-28 08:16 | XMS_ITS | Patient Health Record ---
Author Organization [facility] Address [address] [place], [place] [address] Care Team Providers Care Water Commissioner Name Role Phone MI JEREZ Unavailable [phone] Lasha Mahmood Unavailable Unavailable Allergies Allergen (clinical [...] Medicare Part B [place] [address] [place] [phone] [id number] MADISON GARNER Self - patient is the insured [facility] ([facility]) ATTN CLAIMS [address] [place] [address] [id number] MADISON GARNER Self - patient is the insured Medical (General) History Medical History History ICD Code kidney stones neuropathy Arthritis Bladder infections Diabetic Blood clots
[2025-04-28 08:46] LABS: INR 1.2; Prothrombin Time 13.5 Seconds (9.50-12.1)
== END 2025-04-28 08:11 | disposition home or self-care (01) ==
LOC: CHSLAB 08:13
PROVIDERS: Visit Provider Family Medicine
DX: Z79.01 Long term (current) use of anticoagulants (principal)
CPT/HCPCS: 36415; 85610

== ENCOUNTER 2025-05-10 06:45 | Outpatient (NON) | payer MEDICARE, SELFPAY ==
[2025-05-10 07:15] LABS: INR 1.7; Prothrombin Time 18.2 Seconds (9.50-12.1)
== END 2025-05-10 06:46 | disposition home or self-care (01) ==
LOC: CHSLAB 06:48
PROVIDERS: PCP Family Medicine; Visit Provider Family Medicine
DX: Z79.01 Long term (current) use of anticoagulants (principal)
CPT/HCPCS: 36415; 85610

== ENCOUNTER 2025-05-19 07:00 | Outpatient (NON) | payer MEDICARE, SELFPAY ==
[2025-05-19 12:38] LABS: INR 2.3; Prothrombin Time 23.2 Seconds (9.50-12.1)
== END 2025-05-19 07:01 | disposition home or self-care (01) ==
PROVIDERS: Visit Provider Family Medicine
DX: I49.9 Cardiac arrhythmia, unspecified (principal); I82.441 Acute embolism and thrombosis of right tibial vein; Z79.01 Long term (current) use of anticoagulants
CPT/HCPCS: 36415; 85610

== ENCOUNTER 2025-06-02 06:41 | Outpatient (NON) | payer MEDICARE, SELFPAY ==
[2025-06-02 07:34] LABS: Hematocrit 32.7 % (35.0-42.0); Hemoglobin 10.4 g/dL (11.7-13.8); Mean Corpuscular HGB Conc 31.8 g/dL (32-36); Mean Corpuscular Hemoglobin 30.1 pg (27.0-31.0); Mean Corpuscular Volume 94.8 fL (78.0-102.0); Platelet Count Result 204 K/mm3 (150-420); Red Blood Count 3.45 M/mm3 (4.20-5.40); White Blood Count 10.0 K/mm3 (4.8-10.8)
[2025-06-02 07:51] LABS: Anion Gap 6 mmol/L (4-12); Blood Urea Nitrogen 20 mg/dL (7-17); Calcium 9.0 mg/dL (8.4-10.2); Carbon Dioxide 28 mmol/L (22-30); Chloride 105 mmol/L (98-107); Estimated Glomerular Filt Rate 37; Glucose 154 mg/dL (65-110); Osmolality Calculated 293 mOsm/kg (285-295); Potassium 4.4 mmol/L (3.4-5.0); Sodium 139 mmol/L (137-145)
[2025-06-02 07:55] LABS: Hemoglobin A1C 8.1 % (<5.7)
== END 2025-06-02 06:42 | disposition home or self-care (01) ==
LOC: CHSLAB 06:43
PROVIDERS: PCP Family Medicine; Visit Provider Family Medicine
DX: E11.9 Type 2 diabetes mellitus without complications (principal); N18.31 Chronic kidney disease, stage 3a; I50.33 Acute on chronic diastolic (congestive) heart failure
CPT/HCPCS: 36415; 80048; 83036; 85027

== ENCOUNTER 2025-06-09 07:01 | Outpatient (NON) | payer MEDICARE, SELFPAY ==
[2025-06-09 07:26] LABS: Add Urine Microscopic? YES; Glucose Urine UA Negative (Negative); Leukocyte Esterase Ur 1+ (Negative); Nitrate Urine Positive (Negative); Specific Grav Ur >= 1.030 (1.010-1.020)
[2025-06-09 07:33] LABS: Appearance Urine Sl Cloudy (Clear)
[2025-06-09 07:38] LABS: Magnesium 1.9 mg/dL (1.6-2.3)
[2025-06-09 07:46] LABS: NT Pro B Type Natriuretic Pept 1640 pg/mL (19.9-100)
== END 2025-06-09 07:02 | disposition home or self-care (01) ==
LOC: CHSLAB 07:03
PROVIDERS: Visit Provider Family Medicine
DX: J81.1 Chronic pulmonary edema (principal); I49.9 Cardiac arrhythmia, unspecified; E78.5 Hyperlipidemia, unspecified; E11.22 Type 2 diabetes mellitus with diabetic chronic kidney disease; E11.42 Type 2 diabetes mellitus with diabetic polyneuropathy; N18.31 Chronic kidney disease, stage 3a; I50.32 Chronic diastolic (congestive) heart failure; N39.0 Urinary tract infection, site not specified
CPT/HCPCS: 36415; 81001; 83735; 83880; 87086; 87186

== ENCOUNTER 2025-06-14 18:53 | Outpatient (NON) | payer MEDICARE, SELFPAY ==
--- OUTSIDE RECORDS SUMMARY | 2025-06-14 18:55 | XMS_ITS | Clinical Summary ---
Author Organization [facility] Address [address] [place] [address] Care Team Providers Care Cigar Packer And Shader Name Role Phone Beth Peterson TUBE CLEANING OPERATOR Unavailable Allergies No known active allergies [...] without nonketotic hyperglycemic-hyper osmolar coma (NKHHC) ([facility]) Per [...] without nonketotic hyperglycemic-hyper osmolar coma (NKHHC) ([facility]) Take [...] with hyperosmolarity without nonketotic hyperglycemic-hyperosmolar coma (NKHHC) 08/17/2021 Personal history of noncompl iance with [...] Dates Next Due Influenza Adult (Generic) 08/15/2021,03/2017,05/29/2016,2014 [employer]) COVID-19 AD26 VACCINE 0.5 ML IM SUSP [...] on file Legal Sex Female 2:51 PM CHARGING CAR OPERATOR Gender Identity Not on file Sexual Orientation Not on file Last Filed Vital Signs Vital Sign Reading Time Taken Comments Blood Pressure 122/45 09/13/2021 8:55 AM CHARGING CAR OPERATOR Pulse 76 09/13/2021 8:55 AM CHARGING CAR OPERATOR Temperature 36.7 C (98 F) 09/13/2021 8:55 AM CHARGING CAR OPERATOR Respiratory Rate 20 09/13/2021 8:55 AM CHARGING CAR OPERATOR Oxygen Saturation 97% 09/13/2021 8:55 AM CHARGING CAR OPERATOR Inhaled Oxygen Concentration - - Weight 103 kg (227 lb) 09/13/2021 8:55 AM CHARGING CAR OPERATOR Height 157.5 cm (5' 2) 07/15/2021 3:08 PM CHARGING CAR OPERATOR Body Mass Index 41.52 07/15/2021 3:08 PM CHARGING CAR OPERATOR Plan of Treatment Health Maintenance Due [...] 08/03, 07/16/2021 COVID-19 Vaccine (2 - season) 2025 08/14/2021 Influenza Adult (#1) 2025 08/15/2021, 05/09/2017, 05/29/2016, Additional history exists Meningococcal [...] home safety measures General No Theresa Belle change management coordinator Procedure Name Priority Date/Time Associated Diagnosis Comments HEMOGLOBIN, GLYCOSYLATED Routine 08/29/2021 8:20 AM CHARGING CAR OPERATOR from Last 3 Months or Most Recently Relevant to Health Maintenance Results * (ABNORMAL) HEMOGLOBIN, GLYCOSYLATED (08/29/2021 8:20 AM CHARGING CAR OPERATOR) HGB A1C 8.3(H) 4.2 - 6.3 % [facility] Comment: Note: Hemoglobinopathies such as HbF, HbS, etc. may give incorrect results with this test. ESTIMATED AVG GLUCOSE 190 mg/dL [facility] Comment: (This value is a calculated estimate of the mean blood glucose over the last 60 days based on the patient's HgbA1c value. 08/29/2021 8:20 AM CHARGING CAR OPERATOR 08/29/2021 8:20 AM CHARGING CAR OPERATOR us Ryan Contreras DO LABORATORY Final Result [facility] [address] [place] [address] from Last 3 Months or Most Recently Relevant to Health Maintenance Advance Directives Documents on File Type Date Recorded Patient Ingredient Scaler Expl anation DNR (Do Not Resuscitate) Documentation 08/22/2021 9:38 AM POLST * DNR (Latest Code Status on File) Date Activated Date Inactivated Comments 08/23/2021 9:40 AM * Full Code Date Activated Date Inactivated Comments 08/17/2021 2:39 PM 08/23/2021 9:40 AM * Full Code Date Activated Date Inactivated Comments 07/16/2021 12:10 AM 07/19/2021 10:01 PM Care Teams Cigar Packer And Shader Relationship Specialty Start Date End Date Beth Peterson NP Nurse Practitioner [facility] 08/14/21
[2025-06-14 19:00] LABS: Add Urine Microscopic? YES; Appearance Urine Clear (Clear); Glucose Urine UA Negative (Negative); Leukocyte Esterase Ur 1+ LEU/UL (Negative); Nitrate Urine Negative (Negative); Specific Grav Ur 1.020 (1.010-1.020)
== END 2025-06-14 18:54 | disposition home or self-care (01) ==
LOC: CHSLAB 18:54
PROVIDERS: PCP Family Medicine; Visit Provider Family Medicine
DX: N39.0 Urinary tract infection, site not specified (principal)
CPT/HCPCS: 81001; 87086; 87186